=== PATIENT | male | born 1955 | race African-American/Black ===

== ENCOUNTER 2016-07-23 18:05 | Inpatient (IN) | payer MEDICAID ==
[~2016-07-23] VITALS: Ht 177.8 cm; Wt 125.7 kg
[2016-07-23] MEDS ORDERED: LOSARTAN POTASS50 MG ORAL (18:47)
[2016-07-23 18:52] VITALS: BP 165/115
[2016-07-23 19:51] LABS: CALCIUM 8.6 mg/dL (8.6-10.2); CREATININE 1.7 mg/dL (0.7-1.2); GLOMERULAR FILTRATION RATE 49.9 mL/min (>60); POTASSIUM 5.1 mEQ/L (3.4-4.9); TOTAL PROTEIN 6.8 g/dL (6.6-8.7); TROPONIN I < 0.30 ng/mL (<=0.30)
--- NOTE | 2016-07-23 20:14 | Emergency Room Report ---
History of Present Illness General Chief Complaint: Hypertension Source: Patient Present Illness HPI 60-year-old male presents to ED for evaluation. Patient states that for one week he's been feeling short of breath, with increased leg swelling. Patient states that he has history of high blood pressure. Used to take a water pill but has not taken in several months because he ran out. Shortness of breath is intermittent sometimes at rest sometimes when walking. Denies shortness of breath at this time. Denies any chest pain. Notes cough which is dry. Denies any fevers or chills. No aggravating relieving factors. Denies any other associated symptoms Allergies: Coded Allergies: No Known Allergies (Unverified , 07/23/16) Patient History Past Medical History: HTN Past Surgical History: none Pertinent Family History: none Social History: Denies: alcohol use, drug use, smoking Immunizations: UTD Reviewed Nursing Documentation: PMH: Agreed, PSxH: Agreed Nursing Documentation-PMH Hx Hypertension: Yes Review of Systems All Other Systems: negative except mentioned in HPI Physical Exam Vital Signs Date Time Temp Pulse Resp B/P Pulse Ox O2 Delivery O2 Flow Rate FiO2 07/23/16 18:42 98.2 100 22 165/115 86 Room Air Sp02 EP Interpretation: reviewed, normal General Appearance: no apparent distress, alert, GCS 15, non-toxic Head: normocephalic, atraumatic Eyes: bilateral eye PERRL, bilateral eye normal inspection ENT: hearing grossly normal, normal pharynx, no angioedema, normal voice Neck: full range of motion, supple/symm/no masses Respiratory: chest non-tender, lungs clear, normal breath sounds, speaking full sentences Cardiovascular #1: regular rate, rhythm, no edema Cardiovascular #2: 2+ carotid (R), 2+ carotid (L), 2+ radial (R), 2+ radial (L) , 2+ dorsalis pedis (R), 2+ dorsalis pedis (L) Gastrointestinal: normal bowel sounds, non tender, soft, non-distended, no guarding, no rebound Rectal: deferred Genitourinary: normal inspection, no CVA tenderness Musculoskeletal: back normal, gait/station normal, normal range of motion, non- tender, swelling - 2+ pitting edema b/l LE Neurologic: alert, oriented x3, responsive, motor strength/tone normal, sensory intact, speech normal Psychiatric: judgement/insight normal, memory normal, mood/affect normal, no suicidal/homicidal ideation Reflexes: 3+ bicep (R), 3+ bicep (L), 3+ tricep (R), 3+ tricep (L), 3+ knee (R) , 3+ knee (L) Skin: normal color, no rash, warm/dry, well hydrated Lymphatic: no adenopathy Medical Decision Making Diagnostic Impression: Primary Impression: Hypertensive urgency Additional Impressions: CHF exacerbation Qualified Codes: I50.9 - Heart failure, unspecified ARF (acute renal failure) Qualified Codes: N17.9 - Acute kidney failure, unspecified Hyperkalemia ER Course Hospital Course 60-year-old male presents ED complaining of shortness of breath, leg swelling, BP high Differential diagnoses include: AK/unstable angina, contusion, muscle strain, PTX, rib fracture Clinical course Patient placed on stretcher. on therapist occupational. After initial history and physical I orderd labs, EKG, chest x-ray, ASA labs reviewed- no leukocytosis, hemoglobin/hematocrit stable, creatinine 1.7, K 5.1, troponins negative, BNP greater than 4000 Chest x-ray- cardiomegaly EKG - NSR, no acute changes Hydralazine given. Lasix given. On reassessment BP is improved Case discussed with Dr. Uribe and he agreed to accept the patient to his service for further care and support I. I feel this is a highly complex case requiring extensive working including EKG/Rhythm strip, Xray/CT/US, Blood/urine lab work, repeat exams while in ED, and administration of strong opiates/narcotics for pain control, admission to hospital or close patient follow up. Diagnosis - hypertensive urgency, CHF exacerbation, acute renal failuere, hyperkalemia admitted to telemetry in serious condition Labs Test 07/23/16 19:25 White Blood Count 7.7 K/UL (4.8-10.8) Red Blood Count 6.75 M/UL (4.70-6.10) Hemoglobin 16.7 G/DL (14.2-18.0) Hematocrit 54.5 % (42.0-52.0) Mean Corpuscular Volume 81 FL (80-99) Mean Corpuscular Hemoglobin 24.7 PG (27.0-31.0) Mean Corpuscular Hemoglobin Concent 30.7 G/DL (32.0-36.0) Red Cell Distribution Width 17.7 % (11.6-14.8) Platelet Count 259 K/UL (150-450) Mean Platelet Volume 6.6 FL (6.5-10.1) Neutrophils (%) (Auto) 69.4 % (45.0-75.0) Lymphocytes (%) (Auto) 14.0 % (20.0-45.0) Monocytes (%) (Auto) 14.2 % (1.0-10.0) Eosinophils (%) (Auto) 0.7 % (0.0-3.0) Basophils (%) (Auto) 1.8 % (0.0-2.0) Sodium Level 139 mEQ/L (135-145) Potassium Level 5.1 mEQ/L (3.4-4.9) Chloride Level 97 mEQ/L (98-107) Carbon Dioxide Level 31 mEQ/L (20-30) Anion Gap 11 (5-15) Blood Urea Nitrogen 31 mg/dL (7-23) Creatinine 1.7 mg/dL (0.7-1.2) Estimat Glomerular Filtration Rate 49.9 mL/min (>60) Glucose Level 96 mg/dL (74-106) Calcium Level 8.6 mg/dL (8.6-10.2) Total Bilirubin 0.8 mg/dL (0.0-1.2) Aspartate Amino Transf (AST/SGOT) 35 U/L (5-40) Alanine Aminotransferase (ALT/SGPT) 41 U/L (3-41) Alkaline Phosphatase 99 U/L (40-129) Total Creatine Kinase 140 U/L (38-174) Creatine Kinase MB 4.0 ng/mL (< 6.7) Creatine Kinase MB Relative Index 2.8 Troponin I < 0.30 ng/mL (<=0.30) Pro-B-Type Natriuretic Peptide 4361 pg/mL (0-125) Total Protein 6.8 g/dL (6.6-8.7) Albumin 3.4 g/dL (3.5-5.2) Globulin 3.4 g/dL Albumin/Globulin Ratio 1.0 (1.0-2.7) EKG Diagnostic Results Rate: normal Rhythm: NSR ST Segments: no acute changes ASA given to the pt in ED: No Rhythm Strip Diag. Results EP Interpretation: yes Rhythm: NSR, no PVC's, no ectopy Chest X-Ray Diagnostic Results EP Interpretation: Yes Findings: no consolidation, no effusion, no pneumothorax, no acute cardiopulmonary disease, other - cardiomegaly Number of Views: 1 Last Vital Signs Date Time Temp Pulse Resp B/P Pulse Ox O2 Delivery O2 Flow Rate FiO2 07/23/16 18:52 100 22 Room Air 07/23/16 18:52 98.2 165/115 86 Status: improved Disposition: ADMITTED INPATIENT Condition: Serious Referrals: [facility],REFERR[facility] (PCP) ALE CONNELLY M.D. Jul 23, 2016 20:14
[2016-07-23 20:34] LABS: BASOPHILS % (AUTO) 1.8 % (0.0-2.0); EOSINOPHILS % (AUTO) 0.7 % (0.0-3.0); MEAN CORPUSCULAR HEMOGLOBIN 24.7 PG (27.0-31.0); MEAN CORPUSCULAR HGB CONC 30.7 G/DL (32.0-36.0); MEAN CORPUSCULAR VOLUME 81 FL (80-99); MEAN PLATELET VOLUME 6.6 FL (6.5-10.1); MONOCYTES % (AUTO) 14.2 % (1.0-10.0); NEUTROPHILS % (AUTO) 69.4 % (45.0-75.0); PLATELET COUNT 259 K/UL (150-450); RED BLOOD COUNT 6.75 M/UL (4.70-6.10); RED CELL DISTRIBUTION WIDTH 17.7 % (11.6-14.8); WHITE BLOOD COUNT 7.7 K/UL (4.8-10.8)
[2016-07-23 21:04] VITALS: BP 156/113
[2016-07-23] MEDS ORDERED: Miralax 17gm pkt ORAL PRN (22:00)
[2016-07-23] MEDS ORDERED: DuoNeb 0.5-3(2.5)mg/3ml neb HHN PRN (22:00)
[2016-07-23 23:06] VITALS: BP 127/72
[2016-07-24] VITALS (7 sets, daily range): BP systolic 143–157; BP diastolic 72–108
[2016-07-24 01:28] LABS: APPEARANCE,URINE CLEAR; KETONES,URINE NEGATIVE (NEGATIVE); LEUKOCYTE ESTERASE ,URINE NEGATIVE (NEGATIVE); NITRITE,URINE NEGATIVE (NEGATIVE); PH,URINE 6 (4.5-8.0); PROTEIN,URINE NEGATIVE (NEGATIVE); UROBILINOGEN,URINE NORMAL MG/DL (0.0-1.0)
[2016-07-24 02:32] LABS: RBC,URINE 0-2 /HPF (0 - 0); SQUAMOUS EPITHELIAL CELL,UR OCCASIONAL /LPF (NONE/OCC); WBC,URINE 0-2 /HPF (0 - 0)
[2016-07-24 07:14] LABS: BASOPHILS % (AUTO) 0.8 % (0.0-2.0); EOSINOPHILS % (AUTO) 0.6 % (0.0-3.0); MEAN CORPUSCULAR HEMOGLOBIN 23.6 PG (27.0-31.0); MEAN CORPUSCULAR HGB CONC 29.6 G/DL (32.0-36.0); MEAN CORPUSCULAR VOLUME 80 FL (80-99); MEAN PLATELET VOLUME 7.2 FL (6.5-10.1); MONOCYTES % (AUTO) 13.2 % (1.0-10.0); NEUTROPHILS % (AUTO) 73.3 % (45.0-75.0); PLATELET COUNT 262 K/UL (150-450); RED BLOOD COUNT 6.66 M/UL (4.70-6.10); RED CELL DISTRIBUTION WIDTH 17.9 % (11.6-14.8); WHITE BLOOD COUNT 9.6 K/UL (4.8-10.8)
[2016-07-24 07:44] LABS: TROPONIN I < 0.30 ng/mL (<=0.30)
[2016-07-24 07:49] LABS: CALCIUM 8.5 mg/dL (8.6-10.2); CREATININE 1.7 mg/dL (0.7-1.2); GLOMERULAR FILTRATION RATE 49.9 mL/min (>60); PHOSPHORUS 5.8 mg/dL (2.5-4.8); POTASSIUM 4.5 mEQ/L (3.4-4.9)
[2016-07-24 07:58] LABS: ALANINE AMINOTRANSFERASE 43 U/L (3-41); ALBUMIN/GLOBULIN RATIO 0.9 (1.0-2.7); ANION GAP 18 (5-15); ASPARTATE AMINO TRANSFERASE 38 U/L (5-40); CALCIUM 8.3 mg/dL (8.6-10.2); CARBON DIOXIDE 28 mEQ/L (20-30); CHLORIDE 95 mEQ/L (98-107); CREATININE 1.7 mg/dL (0.7-1.2); GLOMERULAR FILTRATION RATE 49.9 mL/min (>60); HEMOLYSIS 36; MAGNESIUM 2.2 mg/dL (1.7-2.5); PHOSPHORUS 5.4 mg/dL (2.5-4.8); SODIUM 141 mEQ/L (135-145); TOTAL PROTEIN 6.6 g/dL (6.6-8.7); URIC ACID 8.1 mg/dL (3.0-7.5)
[2016-07-24] MEDS: Losartan 50mg tab ORAL SCH (08:57)
[2016-07-24] MEDS: Heparin 5000 units/ml inj SUBQ SCH ×2 (08:58→21:37)
--- NOTE | 2016-07-24 10:47 | Diagnostic Imaging Report ---
Indication: SOB Technique: One view of the chest Comparison: none Findings: Body habitus limits evaluation. The heart is markedly enlarged. The lungs and pleural spaces are grossly clear. Impression: Limited exam. Cardiomegaly No definite acute process This agrees with the preliminary interpretation provided by the emergency room physician
--- NOTE | 2016-07-24 15:13 | History and Physical ---
History of Present Illness General Date patient seen: Jul 24, 2016 Reason for Hospitalization: Hypertension Present Illness HPI 60-year-old male with hx of CHF, HTN, non-compliant with his meds presented to ED for evaluation of shortness of breath, with increased leg swelling. He used to take a water pill but has not taken in several months because he ran out. Denies any fevers or chills. Pt's cxr showed cardiomegaly and pulmonary edema. Pt is admitted to telemetry for further work up. Allergies: Coded Allergies: No Known Allergies (Unverified , 07/23/16) Medication History Scheduled Losartan Potassium* (Losartan Potassium*), 100 MG ORAL DAILY, (Reported) Patient History Healthcare decision maker pt alert and oriented Resuscitation status Full Code Advanced Directive on File Past Medical/Surgical History Past Medical/Surgical History: (1) CHF (congestive heart failure) (2) HTN (hypertension) Review of Systems All Other Systems: negative except mentioned in HPI Physical Exam General Appearance: WD/WN, no apparent distress Lines, tubes and drains: peripheral HEENT: normocephalic, atraumatic Neck: non-tender, normal alignment Respiratory/Chest: chest wall non-tender, lungs clear Breasts: no masses Cardiovascular/Chest: normal peripheral pulses Abdomen: normal bowel sounds, non tender Genitourinary/Rectal: normal genital exam, normal rectal exam Extremities: normal range of motion Skin Exam: normal pigmentation Last 24 Hour Vital Signs Date Time Temp Pulse Resp B/P Pulse Ox O2 Delivery O2 Flow Rate FiO2 07/24/16 12:00 100 07/24/16 12:00 96.3 98 20 148/94 95 Nasal Cannula 2.0 07/24/16 08:57 156/85 07/24/16 08:00 97.7 92 20 156/85 97 Nasal Cannula 2.0 07/24/16 08:00 103 07/24/16 04:09 98.8 103 20 148/72 97 Nasal Cannula 2.0 07/24/16 04:00 95 07/24/16 00:28 98.3 109 21 143/88 95 Room Air 07/24/16 00:00 103 07/23/16 23:16 98.2 87 25 127/72 93 Nasal Cannula 2.0 07/23/16 23:06 98.2 87 25 127/72 93 Nasal Cannula 2.0 07/23/16 21:04 98.2 100 25 156/113 93 Nasal Cannula 2.0 07/23/16 20:49 165/115 07/23/16 18:52 100 22 Room Air 07/23/16 18:52 98.2 78 22 165/115 86 Room Air 07/23/16 18:42 98.2 100 22 165/115 86 Room Air Intake and Output 07/23/16 07/24/16 19:00 07:00 Intake Total 240 ml Output Total 800 ml Balance -560 ml Intake Oral 240 ml Output Urine Total 800 ml # Voids 1 Laboratory Tests Test 07/23/16 19:25 07/24/16 00:55 07/24/16 04:30 White Blood Count 7.7 K/UL (4.8-10.8) 9.6 K/UL (4.8-10.8) Red Blood Count 6.75 M/UL (4.70-6.10) H 6.66 M/UL (4.70-6.10) H Hemoglobin 16.7 G/DL (14.2-18.0) 15.7 G/DL (14.2-18.0) Hematocrit 54.5 % (42.0-52.0) H 53.1 % (42.0-52.0) H Mean Corpuscular Volume 81 FL (80-99) 80 FL (80-99) Mean Corpuscular Hemoglobin 24.7 PG (27.0-31.0) L 23.6 PG (27.0-31.0) L Mean Corpuscular Hemoglobin Concent 30.7 G/DL (32.0-36.0) L 29.6 G/DL (32.0-36.0) L Red Cell Distribution Width 17.7 % (11.6-14.8) H 17.9 % (11.6-14.8) H Platelet Count 259 K/UL (150-450) 262 K/UL (150-450) Mean Platelet Volume 6.6 FL (6.5-10.1) 7.2 FL (6.5-10.1) Neutrophils (%) (Auto) 69.4 % (45.0-75.0) 73.3 % (45.0-75.0) Lymphocytes (%) (Auto) 14.0 % (20.0-45.0) L 12.0 % (20.0-45.0) L Monocytes (%) (Auto) 14.2 % (1.0-10.0) H 13.2 % (1.0-10.0) H Eosinophils (%) (Auto) 0.7 % (0.0-3.0) 0.6 % (0.0-3.0) Basophils (%) (Auto) 1.8 % (0.0-2.0) 0.8 % (0.0-2.0) Sodium Level 139 mEQ/L (135-145) 142 mEQ/L (135-145) Potassium Level 5.1 mEQ/L (3.4-4.9) H 4.5 mEQ/L (3.4-4.9) Chloride Level 97 mEQ/L (98-107) L 96 mEQ/L (98-107) L Carbon Dioxide Level 31 mEQ/L (20-30) H 34 mEQ/L (20-30) H Anion Gap 11 (5-15) 12 (5-15) Blood Urea Nitrogen 31 mg/dL (7-23) H 31 mg/dL (7-23) H Creatinine 1.7 mg/dL (0.7-1.2) H 1.7 mg/dL (0.7-1.2) H Estimat Glomerular Filtration Rate 49.9 mL/min (>60) 49.9 mL/min (>60) Glucose Level 96 mg/dL (74-106) 98 mg/dL (74-106) Calcium Level 8.6 mg/dL (8.6-10.2) 8.5 mg/dL (8.6-10.2) L Total Bilirubin 0.8 mg/dL (0.0-1.2) 0.6 mg/dL (0.0-1.2) Aspartate Amino Transf (AST/SGOT) 35 U/L (5-40) 38 U/L (5-40) Alanine Aminotransferase (ALT/SGPT) 41 U/L (3-41) 43 U/L (3-41) H Alkaline Phosphatase 99 U/L (40-129) 92 U/L (40-129) Total Creatine Kinase 140 U/L (38-174) 119 U/L (38-174) Creatine Kinase MB 4.0 ng/mL (< 6.7) Creatine Kinase MB Relative Index 2.8 Troponin I < 0.30 ng/mL (<=0.30) < 0.30 ng/mL (<=0.30) Pro-B-Type Natriuretic Peptide 4361 pg/mL (0-125) H Total Protein 6.8 g/dL (6.6-8.7) 6.6 g/dL (6.6-8.7) Albumin 3.4 g/dL (3.5-5.2) L 3.4 g/dL (3.5-5.2) L Globulin 3.4 g/dL 3.4 g/dL Albumin/Globulin Ratio 1.0 (1.0-2.7) 0.9 (1.0-2.7) L Urine Color Pale yellow Urine Appearance Clear Urine pH 6 (4.5-8.0) Urine Specific Bertrand 1.005 (1.005-1.035) Urine Protein Negative (NEGATIVE) Urine Glucose (UA) Negative (NEGATIVE) Urine Ketones Negative (NEGATIVE) Urine Occult Blood Negative (NEGATIVE) Urine Nitrite Negative (NEGATIVE) Urine Bilirubin Negative (NEGATIVE) Urine Urobilinogen Normal MG/DL (0.0-1.0) Urine Leukocyte Esterase Negative (NEGATIVE) Urine RBC 0-2 /HPF (0 - 0) H Urine WBC 0-2 /HPF (0 - 0) Urine Squamous Epithelial Cells Occasional /LPF Urine Bacteria None /HPF (NONE) Urine Eosinophils None seen Urine Osmolality Pending Urine Random Sodium 112 mmol/L Urine Random Chloride 107 mmol/L Urine Potassium Timed 12 mmol/L Plasma/Serum Osmolality Pending Uric Acid 8.1 mg/dL (3.0-7.5) H Phosphorus Level 5.8 mg/dL (2.5-4.8) H Magnesium Level 2.2 mg/dL (1.7-2.5) Thyroid Stimulating Hormone (TSH) 2.660 uIU/mL (0.300-4.500) Free Thyroxine 1.27 ng/dL (0.86-1.85) Cortisol Pending Height (Feet): 5 Height (Inches): 10.00 Weight (Pounds): 294 Medications Current Medications Medications (Trade) Dose Ordered Sig/Judy Route PRN Reason Start Time Stop Time Status Last Admin Dose Admin Acetaminophen (Tylenol) 650 mg Q4H PRN ORAL Fever 07/23/16 22:00 08/22/16 21:59 Albuterol/ Ipratropium (DuoNeb 0.5-3(2.5)mg/3ml) 3 ml Q4HRT PRN HHN Shortness of Breath 07/23/16 22:00 07/28/16 21:59 Dextrose (Dextrose 50%) STAT PRN IV Hypoglycemia 07/23/16 22:00 08/22/16 21:59 Furosemide (Lasix) 40 mg EVERY 8 HOURS IV 07/23/16 22:00 08/22/16 21:59 07/24/16 13:53 Heparin Sodium (Porcine) (Heparin 5000 units/ml) 5,000 units EVERY 12 HOURS SUBQ 07/24/16 09:00 08/23/16 08:59 07/24/16 08:58 Losartan Potassium (Cozaar) 100 mg DAILY ORAL 07/24/16 09:00 08/23/16 08:59 07/24/16 08:57 Ondansetron HCl (Zofran) 4 mg Q6H PRN IVP Nausea & Vomiting 07/23/16 22:00 08/22/16 21:59 Polyethylene Glycol (Miralax) 17 gm DAILYPRN PRN ORAL Constipation 07/23/16 22:00 08/22/16 21:59 Temazepam (Restoril) 15 mg HSPRN PRN ORAL Insomnia 07/23/16 22:00 07/30/16 21:59 Assessment/Plan Problem List: (1) CHF exacerbation ICD Codes: I50.9 - Heart failure, unspecified SNOMED: 19048031 Qualifiers: Qualified Codes: I50.9 - Heart failure, unspecified (2) Hypertensive urgency ICD Codes: I16.0 - Hypertensive urgency SNOMED: 065519966 (3) CHF (congestive heart failure) ICD Codes: I50.9 - Heart failure, unspecified SNOMED: 65579267 (4) HTN (hypertension) ICD Codes: I10 - Essential (primary) hypertension SNOMED: 11795308 (5) ARF (acute renal failure) ICD Codes: N17.9 - Acute kidney failure, unspecified SNOMED: 91774755 Qualifiers: Qualified Codes: N17.9 - Acute kidney failure, unspecified Assessment/Plan diruetics bp control renal work up KEITH CHONG Jul 24, 2016 15:13
[2016-07-24] MEDS: Docusate 100mg tablet ORAL SCH (17:32)
[2016-07-24] MEDS: Lactulose 20gm/30ml UDC ORAL SCH (17:32)
[2016-07-24] MEDS: Gentamicin 0.3% Opth Soln 5ml BOTH EYES SCH ×2 (17:32→23:27)
--- NOTE | 2016-07-24 19:43 | Cardiology Report ---
APPROVED REPORT EXAM: Two-dimensional and M-mode echocardiogram with Doppler and color Doppler. INDICATION Left Ventricular Function M-Mode DIMENSIONS IVSd2.0 (0.7-1.1cm)Left Atrium (MM)4.9 (1.6-4.0cm) LVDd5.8 (3.5-5.6cm)Aortic Root3.5 (2.0-3.7cm) PWd1.5 (0.7-1.1cm)Aortic Cusp Exc.2.2 (1.5-2.0cm) LVDs4.8 (2.5-4.0cm) PWs1.8 cm Technically difficult study due to poor acoustic windows. Study quality precludes accurate assessment of regional wall motion. Mild left ventricular enlargement. Global left ventricular hypokinesis. Left ventricular ejection fraction estimated to be 35-40 %. Moderate left ventricular hypertrophy. No evidence of pericardial fat or effusion. Moderate right atrial and right ventricular enlargement. Left ventricle D-shape pattern, suggestive of right ventricle volume and pressure overload. Left atrial chamber size is within normal limits. Mild focal aortic valve sclerosis with adequate cusp excursion. Mildly thickened mitral valve leaflets with normal excursion. Mild mitral annulus and aortic root calcification. Normal pulmonic valve structure. Normal tricuspid valve structure. IVC dilated at 1.8 cm with physiologic collapse. A color flow and spectral Doppler study was performed and revealed: No aortic regurgitation. Moderate to severe mitral regurgitation. Mitral diastolic velocities suggest reduced left ventricular relaxation (Grade I). Mild tricuspid regurgitation. Tricuspid systolic velocities suggests peak right ventricular systolic pressure of 60 mmHg, consistent with severe pulmonary hypertension. Trace pulmonic regurgitation present.
[2016-07-24] MEDS: Miralax 17gm pkt ORAL SCH (21:00)
[2016-07-25] VITALS (7 sets, daily range): BP systolic 132–162; BP diastolic 91–103
[2016-07-25] MEDS: Gentamicin 0.3% Opth Soln 5ml BOTH EYES SCH ×3 (05:31→21:23)
[2016-07-25 06:10] LABS: CORTISOL LC 19.5 ug/dL (.)
[2016-07-25] MEDS ORDERED: cloNIDine 0.2mg Tab ORAL PRN (08:15)
[2016-07-25] MEDS: Losartan 50mg tab ORAL SCH (08:24)
[2016-07-25] MEDS: Lactulose 20gm/30ml UDC ORAL SCH ×3 (08:24→17:49)
[2016-07-25] MEDS: Docusate 100mg tablet ORAL SCH ×3 (08:24→17:50)
[2016-07-25] MEDS: Heparin 5000 units/ml inj SUBQ SCH ×2 (08:33→21:26)
--- NOTE | 2016-07-25 09:35 | Diagnostic Imaging Report ---
Indication: Abnormal renal function tests, hypertension Technique: Grayscale and duplex images of the kidneys, retroperitoneum, and bladder were obtained. Comparison:None Findings: Right kidney measures 13.9 cm in length. Left kidney measures 12.2 cm in length. Both kidneys demonstrate normal echogenicity. No hydronephrosis. No focal abnormality. Normal inferior vena cava. Bladder is normal. Impression: negative.
--- NOTE | 2016-07-25 14:57 | Pulmonology Progress Note ---
Assessment/Plan Problems: (1) CHF exacerbation (2) Hypertensive urgency (3) CHF (congestive heart failure) (4) HTN (hypertension) (5) ARF (acute renal failure) Assessment/Plan improving diuresing well cxr, bnp in am Subjective ROS Limited/Unobtainable: No Interval Events: comfortable Allergies: Coded Allergies: No Known Allergies (Unverified , 07/23/16) Objective Last 24 Hour Vital Signs Date Time Temp Pulse Resp B/P Pulse Ox O2 Delivery O2 Flow Rate FiO2 07/25/16 12:08 98.1 99 22 141/92 100 Nasal Cannula 4.0 07/25/16 12:00 98 07/25/16 08:24 153/91 07/25/16 08:06 98.2 106 22 153/91 92 Nasal Cannula 4.0 07/25/16 08:00 107 07/25/16 07:19 Nasal Cannula 4.0 07/25/16 07:19 94 Nasal Cannula 4.0 07/25/16 07:19 96 18 Room Air 4.0 07/25/16 06:05 162/100 97 2.0 07/25/16 04:00 101 07/25/16 04:00 97.0 104 20 160/103 96 Nasal Cannula 07/25/16 00:00 97.8 96 20 132/96 95 Room Air 07/25/16 00:00 95 07/24/16 20:00 100 07/24/16 20:00 97.3 97 20 157/108 96 Nasal Cannula 4.0 07/24/16 19:41 94 Nasal Cannula 4.0 07/24/16 19:41 Nasal Cannula 4.0 07/24/16 19:40 96 18 Room Air 4.0 07/24/16 16:00 97.9 92 20 156/85 97 Nasal Cannula 2.0 Intake and Output 07/24/16 07/25/16 19:00 07:00 Intake Total 480 ml 870 ml Output Total 4100 ml 3000 ml Balance -3620 ml -2130 ml Intake Oral 480 ml 870 ml Output Urine Total 4100 ml 3000 ml # Bowel Movements 1 General Appearance: WD/WN, no acute distress HEENT: normocephalic, atraumatic Respiratory/Chest: chest wall non-tender, normal breath sounds Cardiovascular: normal peripheral pulses, normal rate Abdomen: normal bowel sounds, soft, non tender Extremities: no cyanosis, no clubbing Skin: no lesions, no ulcers Laboratory Tests 07/25/16 06:00: Vitamin D 25-Hydroxy [Pending], 25-Hydroxy Vitamin D2 [Pending], 25-Hydroxy Vitamin D3 [Pending] Current Medications Medications (Trade) Dose Ordered Sig/Judy Route PRN Reason Start Time Stop Time Status Last Admin Dose Admin Acetaminophen (Tylenol) 650 mg Q4H PRN ORAL Fever 07/23/16 22:00 08/22/16 21:59 Albuterol/ Ipratropium (DuoNeb 0.5-3(2.5)mg/3ml) 3 ml Q4HRT PRN HHN Shortness of Breath 07/23/16 22:00 07/28/16 21:59 Clonidine HCl (Catapres) 0.2 mg EVERY 6 HOURS PRN ORAL For High Blood Pressure 07/25/16 08:15 08/24/16 08:14 Dextrose (Dextrose 50%) STAT PRN IV Hypoglycemia 07/23/16 22:00 08/22/16 21:59 Docusate Sodium (Colace) 100 mg THREE TIMES A DAY ORAL 07/24/16 18:00 08/23/16 17:59 07/25/16 08:24 Furosemide (Lasix) 40 mg EVERY 8 HOURS IV 07/23/16 22:00 08/22/16 21:59 07/25/16 13:14 Gentamicin Sulfate (Garamycin 0.3% Opt Sol) 1 drop Q8HR BOTH EYES 07/24/16 18:00 07/31/16 17:59 07/25/16 13:14 Heparin Sodium (Porcine) (Heparin 5000 units/ml) 5,000 units EVERY 12 HOURS SUBQ 07/24/16 09:00 08/23/16 08:59 07/25/16 08:33 Lactulose (Cephulac) 30 gm THREE TIMES A DAY ORAL 07/24/16 18:00 08/23/16 17:59 07/25/16 08:24 Losartan Potassium (Cozaar) 100 mg DAILY ORAL 07/24/16 09:00 08/23/16 08:59 07/25/16 08:24 Mineral Oil (Fleet's Mineral Oil Enema) 133 ml EVERY OTHER DAY RECTAL 07/26/16 09:00 08/25/16 08:59 Ondansetron HCl (Zofran) 4 mg Q6H PRN IVP Nausea & Vomiting 07/23/16 22:00 08/22/16 21:59 Polyethylene Glycol (Miralax) 17 gm BEDTIME ORAL 07/24/16 21:00 08/23/16 20:59 Polyethylene Glycol (Miralax) 17 gm DAILYPRN PRN ORAL Constipation 07/23/16 22:00 08/22/16 21:59 Sennosides (Senokot) 8.6 mg DAILY ORAL 07/24/16 16:30 08/23/16 16:29 07/25/16 08:24 Temazepam (Restoril) 15 mg HSPRN PRN ORAL Insomnia 07/23/16 22:00 07/30/16 21:59 KEITH CHONG Jul 25, 2016 14:57
--- NOTE | 2016-07-25 18:35 | Cardiology Progress Note ---
Assessment/Plan Assessment/Plan [id number] left heart failure righ heart failur pulm htn edy renal insuf obesity med noncomplaince full note dicated need mroe diuresis needs acei if cr adn k allow will need coreg diet and fluid restriction and fu with cardiologsit fully d/w pt Objective Last 24 Hour Vital Signs Date Time Temp Pulse Resp B/P Pulse Ox O2 Delivery O2 Flow Rate FiO2 07/25/16 16:00 94 07/25/16 16:00 97.0 96 20 150/94 93 Nasal Cannula 2.0 07/25/16 12:08 98.1 99 22 141/92 100 Nasal Cannula 4.0 07/25/16 12:00 98 07/25/16 08:24 153/91 07/25/16 08:06 98.2 106 22 153/91 92 Nasal Cannula 4.0 07/25/16 08:00 107 07/25/16 07:19 Nasal Cannula 4.0 07/25/16 07:19 94 Nasal Cannula 4.0 07/25/16 07:19 96 18 Room Air 4.0 07/25/16 06:05 162/100 97 2.0 07/25/16 04:00 101 07/25/16 04:00 97.0 104 20 160/103 96 Nasal Cannula 07/25/16 00:00 97.8 96 20 132/96 95 Room Air 07/25/16 00:00 95 07/24/16 20:00 100 07/24/16 20:00 97.3 97 20 157/108 96 Nasal Cannula 4.0 07/24/16 19:41 94 Nasal Cannula 4.0 07/24/16 19:41 Nasal Cannula 4.0 07/24/16 19:40 96 18 Room Air 4.0 Intake and Output 07/24/16 07/25/16 19:00 07:00 Intake Total 480 ml 870 ml Output Total 4100 ml 3000 ml Balance -3620 ml -2130 ml Intake Oral 480 ml 870 ml Output Urine Total 4100 ml 3000 ml # Bowel Movements 1 Laboratory Tests Test 07/25/16 06:00 Vitamin D 25-Hydroxy Pending 25-Hydroxy Vitamin D2 Pending 25-Hydroxy Vitamin D3 Pending ABHISHEK BYRD Jul 25, 2016 18:35
[2016-07-25] MEDS: Miralax 17gm pkt ORAL SCH (20:44)
[2016-07-25 22:21] LABS: TROPONIN I < 0.30 ng/mL (<=0.30)
[2016-07-26 00:15] VITALS: BP 142/87
--- NOTE | 2016-07-26 03:39 | Consultation ---
DATE OF CONSULTATION: 07/25/2016 CARDIOLOGY CONSULTATION REFERRING PHYSICIAN: Hira Uribe M.D. REASON FOR REFERRAL: Cardiomyopathy and congestive heart failure. HISTORY OF PRESENT ILLNESS: The patient is a middle-aged gentleman who has had significant edema of lower extremities for some time. He has seen a assembler caterpillar spider previously and has been given some diuretics. He did take the diuretics and he responded to them, after a while he stopped taking over the last couple of months. Over the past two weeks, he has had increased degrees of swelling around the ankles and eventually the swelling crawled up all the way up to his legs. He has been short of breath. He has two pillows. He gets up because of shortness of breath. He has significant dyspnea on exertion. He has dizziness on long distance walking. No heart pounding or palpitations. No dizziness on standing. PAST MEDICAL HISTORY: Positive for high blood pressure. No heart attack. No cancer, stroke, hepatitis, tuberculosis, asthma, emphysema, ulcers, kidney problems, liver problems, thyroid problems, anemia, arthritis, or HIV. Positive for sleep apnea. ALLERGIES: He is not allergic to any medications. SOCIAL HISTORY: Denies smoking or drinking. He has a remote history of some drugs in , he states. REVIEW OF SYSTEMS: Gastrointestinal: Intermittent bouts of diarrhea. Genitourinary: Negative. Pulmonary: Negative. Constitutional: Negative. Neurological: Negative. PHYSICAL EXAMINATION: GENERAL: Shows to be obese elderly gentleman, in no apparent distress. VITAL SIGNS: His blood pressure is anywhere between 141/90 to 154/94, heart rate is in 90s, temperature 97 degrees, and 92% on two liters. NECK: Supple. No jugular venous distention. No abdominojugular reflux noted. LUNGS: Decreased breath sounds at the bases. CARDIAC: Regular rate and rhythm. No heaves, thrills, gallops, or rubs are noted. ABDOMEN: Soft and obese. Positive bowel sounds. Abdominal wall edema is noted. EXTREMITIES: There is 2 to 3+ edema of the lower extremities all way up to his thigh. LABORATORY DATA: White count 9.6, hemoglobin 15.7, and platelet count 262,000. Sodium is 140, potassium 4.5, chloride 96, bicarbonate 34, BUN 31, creatinine 1.7, glucose of 98, and calcium is 8.5. Troponin is less than 0.04. ProBNP at the time of admission was 4361. His TSH is . His cortisol is 19.1. Urinalysis is fairly unremarkable. Chest x-ray shows no acute processes or cardiomegaly. Echocardiogram shows cardiomyopathy, ejection fraction of 35% to 40%, global hypokinesis, diastolic flattening of ventricular septum, pulmonary systolic pressure is 60. Moderate to severe mitral regurgitation is being documented. ASSESSMENT: 1. Congestive heart failure, acute on chronic systolic. 2. Mitral regurgitation. 3. Pulmonary hypertension. 4. Sleep apnea. 5. Morbid obesity. 6. Systemic hypertension. 7. Medication noncompliance. 8. Right heart failure. PLAN: Importance of diet, fluid restriction, sodium restriction, and compliance with medication was fully discussed with the patient. He needs to be diuresed and needs to be on RAHEEM inhibitors as long as creatinine or potassium allow, beta-blockers once his heart failure improves and further recommendations based on the results of the response to therapy. He seems to have right now more symptoms of right heart failure than he does of left heart failure as well. Mark Oreilly M.D. DR: OLIVIA JOB#: [id number] CC:
[2016-07-26 04:24] VITALS: BP 147/98
[2016-07-26] MEDS: Gentamicin 0.3% Opth Soln 5ml BOTH EYES SCH ×3 (06:11→21:07)
[2016-07-26 06:44] LABS: CREATININE, RANDOM URINE 86.1 mg/dL
[2016-07-26 07:11] LABS: CREATININE 1.5 mg/dL (0.7-1.2); GLOMERULAR FILTRATION RATE 57.7 mL/min (>60); POTASSIUM 3.7 mEQ/L (3.4-4.9); TOTAL PROTEIN 6.4 g/dL (6.6-8.7)
[2016-07-26 07:21] LABS: BASOPHILS % (AUTO) 0.5 % (0.0-2.0); EOSINOPHILS % (AUTO) 1.5 % (0.0-3.0); LYMPHOCYTES % (AUTO) 12.1 % (20.0-45.0); MEAN CORPUSCULAR HEMOGLOBIN 23.7 PG (27.0-31.0); MEAN CORPUSCULAR HGB CONC 29.6 G/DL (32.0-36.0); MEAN CORPUSCULAR VOLUME 80 FL (80-99); MONOCYTES % (AUTO) 14.8 % (1.0-10.0); NEUTROPHILS % (AUTO) 71.1 % (45.0-75.0); PLATELET COUNT 222 K/UL (150-450); RED BLOOD COUNT 6.44 M/UL (4.70-6.10); RED CELL DISTRIBUTION WIDTH 17.6 % (11.6-14.8); WHITE BLOOD COUNT 8.1 K/UL (4.8-10.8)
[2016-07-26 08:00] VITALS: BP 104/51
[2016-07-26] MEDS: Lactulose 20gm/30ml UDC ORAL SCH ×3 (08:53→17:18)
[2016-07-26] MEDS: Lisinopril 20mg tab ORAL SCH (08:53)
[2016-07-26] MEDS: Docusate 100mg tablet ORAL SCH ×3 (08:53→17:18)
[2016-07-26] MEDS: Heparin 5000 units/ml inj SUBQ SCH ×2 (08:56→21:00)
[2016-07-26] MEDS ORDERED: Fleet's Mineral Oil Enema RECTAL SCH (09:00)
[2016-07-26 11:03] LABS: ABG ALLEN TEST POSITIVE; ABG BASE EXCESS 22.3; ABG PCO2 78.4 mmHg (35.0-45.0)
[2016-07-26 11:04] LABS: ABG ALLEN TEST POSITIVE; ABG PCO2 84.3 mmHg (35.0-45.0)
[2016-07-26 12:00] VITALS: BP 150/108
--- NOTE | 2016-07-26 12:04 | General Progress Note ---
Progress Note Progress Note patient seen and examined full note dictated SHERMAN GRANT Jul 26, 2016 12:04
--- NOTE | 2016-07-26 12:12 | Diagnostic Imaging Report ---
Indication: DYSPNEA Technique: One view of the chest Comparison: 3 26 x 17 Findings: The heart remains enlarged. No gross acute infiltrates or effusions. Findings are unchanged Impression: Unchanged, over 3 days, findings as above.
--- NOTE | 2016-07-26 12:44 | Pulmonology Progress Note ---
Assessment/Plan Problems: (1) CHF exacerbation (2) Hypertensive urgency (3) CHF (congestive heart failure) (4) HTN (hypertension) (5) ARF (acute renal failure) Assessment/Plan improving diuresing well add diamox IV to treat hypercapnea bnp in am Subjective ROS Limited/Unobtainable: No Interval Events: still diuresing a lot Allergies: Coded Allergies: No Known Allergies (Unverified , 07/23/16) Objective Last 24 Hour Vital Signs Date Time Temp Pulse Resp B/P Pulse Ox O2 Delivery O2 Flow Rate FiO2 07/26/16 08:55 82 104/51 07/26/16 08:53 104/51 07/26/16 08:00 94 07/26/16 08:00 97.7 82 18 104/51 91 Nasal Cannula 2.0 07/26/16 07:50 Nasal Cannula 2.0 07/26/16 07:49 86 18 Nasal Cannula 2.0 07/26/16 07:48 91 Nasal Cannula 2.0 07/26/16 04:24 98.4 92 20 147/98 94 Nasal Cannula 2.0 07/26/16 04:00 95 07/26/16 00:15 98.3 98 21 142/87 95 Nasal Cannula 07/26/16 00:00 94 07/25/16 23:35 93 Nasal Cannula 4.0 07/25/16 21:23 97 146/102 07/25/16 20:00 94 07/25/16 20:00 97.8 97 21 146/102 93 Nasal Cannula 2.0 07/25/16 19:05 Nasal Cannula 4.0 07/25/16 19:05 86 18 Room Air 4.0 07/25/16 16:00 94 07/25/16 16:00 97.0 96 20 150/94 93 Nasal Cannula 2.0 Intake and Output 07/25/16 07/26/16 18:59 06:59 Intake Total 600 ml 260 ml Output Total 1200 ml 1200 ml Balance -600 ml -940 ml Intake Oral 600 ml 260 ml Output Urine Total 1200 ml 1200 ml General Appearance: WD/WN HEENT: normocephalic, atraumatic Respiratory/Chest: chest wall non-tender, lungs clear Cardiovascular: normal peripheral pulses, normal rate Abdomen: normal bowel sounds, no organomegaly Genitourinary: normal external genitalia Extremities: no cyanosis Neurologic/Psychiatric: septic tank servicer II-XII grossly normal Lymphatic: no neck adenopathy Musculoskeletal: normal muscle bulk Laboratory Tests 07/25/16 21:39: Troponin I < 0.30 07/26/16 04:00: Urine Eosinophils None seen, Urine Random Creatinine [Pending], Urine Random Microalbumin [Pending], Urine Random Total Protein 30, Urine Random Sodium 126, Urine Creatinine 86.1, Urine Microalbumin/Creatinine Ratio [Pending] 07/26/16 04:30: White Blood Count 8.1, Red Blood Count 6.44H, Hemoglobin 15.3, Hematocrit 51.6, Mean Corpuscular Volume 80, Mean Corpuscular Hemoglobin 23.7L, Mean Corpuscular Hemoglobin Concent 29.6L, Red Cell Distribution Width 17.6H, Platelet Count 222 , Mean Platelet Volume 7.0, Neutrophils (%) (Auto) 71.1, Lymphocytes (%) (Auto) 12.1L, Monocytes (%) (Auto) 14.8H, Eosinophils (%) (Auto) 1.5, Basophils (%) ( Auto) 0.5, Sodium Level 141, Potassium Level 3.7, Chloride Level 88L, Carbon Dioxide Level 48*H, Anion Gap 5, Blood Urea Nitrogen 22, Creatinine 1.5H, Estimat Glomerular Filtration Rate 57.7, Glucose Level 83, Calcium Level 8.0L, Total Bilirubin 0.9, Aspartate Amino Transf (AST/SGOT) 31, Alanine Aminotransferase (ALT/SGPT) 35, Alkaline Phosphatase 75, Pro-B-Type Natriuretic Peptide 2722H, Total Protein 6.4L, Albumin 3.3L, Globulin 3.1, Albumin/Globulin Ratio 1.0 07/26/16 10:50: Arterial Blood pH 7.440, Arterial Blood Partial Pressure CO2 78.4*H, Arterial Blood Partial Pressure O2 42.3*L, Arterial Blood HCO3 52.2H, Arterial Blood Oxygen Saturation 77.3L, Arterial Blood Base Excess 22.3, [place] Test Positive 07/26/16 11:02: Arterial Blood pH 7.400, Arterial Blood Partial Pressure CO2 84.3*H, Arterial Blood Partial Pressure O2 62.6L, Arterial Blood HCO3 51.8H, Arterial Blood Oxygen Saturation 90.4L, Arterial Blood Base Excess 21.0, [place] Test Positive Current Medications Medications (Trade) Dose Ordered Sig/Judy Route PRN Reason Start Time Stop Time Status Last Admin Dose Admin Acetaminophen (Tylenol) 650 mg Q4H PRN ORAL Fever 07/23/16 22:00 08/22/16 21:59 Albuterol/ Ipratropium (DuoNeb 0.5-3(2.5)mg/3ml) 3 ml Q4HRT PRN HHN Shortness of Breath 07/23/16 22:00 07/28/16 21:59 Carvedilol (Coreg) 3.125 mg EVERY 12 HOURS ORAL 07/25/16 21:00 08/24/16 20:59 07/26/16 08:55 Clonidine HCl (Catapres) 0.2 mg EVERY 6 HOURS PRN ORAL For High Blood Pressure 07/25/16 08:15 08/24/16 08:14 Dextrose (Dextrose 50%) STAT PRN IV Hypoglycemia 07/23/16 22:00 08/22/16 21:59 Docusate Sodium (Colace) 100 mg THREE TIMES A DAY ORAL 07/24/16 18:00 08/23/16 17:59 07/25/16 08:24 Furosemide (Lasix) 40 mg EVERY 8 HOURS IV 07/23/16 22:00 08/22/16 21:59 07/26/16 06:11 Gentamicin Sulfate (Garamycin 0.3% [facility]) 1 drop Q8HR BOTH EYES 07/24/16 18:00 07/31/16 17:59 07/26/16 06:11 Heparin Sodium (Porcine) (Heparin 5000 units/ml) 5,000 units EVERY 12 HOURS SUBQ 07/24/16 09:00 08/23/16 08:59 07/26/16 08:56 Lactulose (Cephulac) 30 gm THREE TIMES A DAY ORAL 07/24/16 18:00 08/23/16 17:59 07/25/16 08:24 Lisinopril (Prinivil) 20 mg DAILY ORAL 07/26/16 09:00 08/25/16 08:59 Mineral Oil (Fleet's Mineral Oil Enema) 133 ml EVERY OTHER DAY RECTAL 07/26/16 09:00 08/25/16 08:59 Ondansetron HCl (Zofran) 4 mg Q6H PRN IVP Nausea & Vomiting 07/23/16 22:00 08/22/16 21:59 Polyethylene Glycol (Miralax) 17 gm BEDTIME ORAL 07/24/16 21:00 08/23/16 20:59 Polyethylene Glycol (Miralax) 17 gm DAILYPRN PRN ORAL Constipation 07/23/16 22:00 08/22/16 21:59 Sennosides (Senokot) 8.6 mg DAILY ORAL 07/24/16 16:30 08/23/16 16:29 07/25/16 08:24 Temazepam (Restoril) 15 mg HSPRN PRN ORAL Insomnia 07/23/16 22:00 07/30/16 21:59 KEITH CHONG Jul 26, 2016 12:44
[2016-07-26 16:00] VITALS: BP 130/91
--- NOTE | 2016-07-26 19:23 | Cardiology Progress Note ---
Assessment/Plan Assessment/Plan 1. Congestive heart failure, acute on chronic systolic. 2. Mitral regurgitation. 3. Pulmonary hypertension. 4. Sleep apnea. 5. Morbid obesity. 6. Systemic hypertension. 7. Medication noncompliance. 8. Right heart failure 9. hypercapnea agree with diamox on coreg will increaes the dose decreased diuretic to bid keep on acei if bp remain elevated tomorrow would increase acaei should have sleep study as outpt in futuere Subjective Cardiovascular: Denies: chest pain, lightheadedness, palpitations Respiratory: Reports: shortness of breath Gastrointestinal/Abdominal: Denies: abdominal pain Genitourinary: Denies: burning Objective Last 24 Hour Vital Signs Date Time Temp Pulse Resp B/P Pulse Ox O2 Delivery O2 Flow Rate FiO2 07/26/16 16:00 98.1 87 20 130/91 98 Nasal Cannula 2.0 07/26/16 16:00 88 07/26/16 12:00 97.7 88 18 150/108 93 Nasal Cannula 2.0 07/26/16 12:00 87 07/26/16 08:55 82 104/51 07/26/16 08:53 104/51 07/26/16 08:00 94 07/26/16 08:00 97.7 82 18 104/51 91 Nasal Cannula 2.0 07/26/16 07:50 Nasal Cannula 2.0 07/26/16 07:49 86 18 Nasal Cannula 2.0 07/26/16 07:48 91 Nasal Cannula 2.0 07/26/16 04:24 98.4 92 20 147/98 94 Nasal Cannula 2.0 07/26/16 04:00 95 07/26/16 00:15 98.3 98 21 142/87 95 Nasal Cannula 07/26/16 00:00 94 07/25/16 23:35 93 Nasal Cannula 4.0 07/25/16 21:23 97 146/102 07/25/16 20:00 94 07/25/16 20:00 97.8 97 21 146/102 93 Nasal Cannula 2.0 General Appearance: no apparent distress Neck: supple Cardiovascular: normal rate, regular rhythm Respiratory/Chest: lungs clear, normal breath sounds Abdomen: normal bowel sounds, non tender, soft Extremities: moderate edema Intake and Output 07/25/16 07/26/16 19:00 07:00 Intake Total 600 ml 260 ml Output Total 1200 ml 1200 ml Balance -600 ml -940 ml Intake Oral 600 ml 260 ml Output Urine Total 1200 ml 1200 ml Laboratory Tests Test 07/25/16 21:39 07/26/16 04:00 07/26/16 04:30 07/26/16 10:50 Troponin I < 0.30 ng/mL (<=0.30) Urine Eosinophils None seen Urine Random Creatinine Pending Urine Random Microalbumin Pending Urine Random Total Protein 30 mg/dL Urine Random Sodium 126 mmol/L Urine Creatinine 86.1 mg/dL Urine Microalbumin/Creatinine Ratio Pending White Blood Count 8.1 K/UL (4.8-10.8) Red Blood Count 6.44 M/UL (4.70-6.10) H Hemoglobin 15.3 G/DL (14.2-18.0) Hematocrit 51.6 % (42.0-52.0) Mean Corpuscular Volume 80 FL (80-99) Mean Corpuscular Hemoglobin 23.7 PG (27.0-31.0) L Mean Corpuscular Hemoglobin Concent 29.6 G/DL (32.0-36.0) L Red Cell Distribution Width 17.6 % (11.6-14.8) H Platelet Count 222 K/UL (150-450) Mean Platelet Volume 7.0 FL (6.5-10.1) Neutrophils (%) (Auto) 71.1 % (45.0-75.0) Lymphocytes (%) (Auto) 12.1 % (20.0-45.0) L Monocytes (%) (Auto) 14.8 % (1.0-10.0) H Eosinophils (%) (Auto) 1.5 % (0.0-3.0) Basophils (%) (Auto) 0.5 % (0.0-2.0) Sodium Level 141 mEQ/L (135-145) Potassium Level 3.7 mEQ/L (3.4-4.9) Chloride Level 88 mEQ/L (98-107) L Carbon Dioxide Level 48 mEQ/L (20-30) *H Anion Gap 5 (5-15) Blood Urea Nitrogen 22 mg/dL (7-23) Creatinine 1.5 mg/dL (0.7-1.2) H Estimat Glomerular Filtration Rate 57.7 mL/min (>60) Glucose Level 83 mg/dL (74-106) Calcium Level 8.0 mg/dL (8.6-10.2) L Total Bilirubin 0.9 mg/dL (0.0-1.2) Aspartate Amino Transf (AST/SGOT) 31 U/L (5-40) Alanine Aminotransferase (ALT/SGPT) 35 U/L (3-41) Alkaline Phosphatase 75 U/L (40-129) Pro-B-Type Natriuretic Peptide 2722 pg/mL (0-125) H Total Protein 6.4 g/dL (6.6-8.7) L Albumin 3.3 g/dL (3.5-5.2) L Globulin 3.1 g/dL Albumin/Globulin Ratio 1.0 (1.0-2.7) Arterial Blood pH 7.440 (7.350-7.450) Arterial Blood Partial Pressure CO2 78.4 mmHg (35.0-45.0) *H Arterial Blood Partial Pressure O2 42.3 mmHg (75.0-100.0) Arterial Blood HCO3 52.2 mmol/L (22.0-26.0) H Arterial Blood Oxygen Saturation 77.3 % (92.0-98.0) L Arterial Blood Base Excess 22.3 [place] Test Positive Test 07/26/16 11:02 Arterial Blood pH 7.400 (7.350-7.450) Arterial Blood Partial Pressure CO2 84.3 mmHg (35.0-45.0) *H Arterial Blood Partial Pressure O2 62.6 mmHg (75.0-100.0) L Arterial Blood HCO3 51.8 mmol/L (22.0-26.0) H Arterial Blood Oxygen Saturation 90.4 % (92.0-98.0) L Arterial Blood Base Excess 21.0 [place] Test Positive ABHISHEK BYRD Jul 26, 2016 19:23
[2016-07-26 20:00] VITALS: BP 150/97
--- NOTE | 2016-07-26 20:09 | Consultation ---
DATE OF CONSULTATION: 07/26/2016 NEPHROLOGY CONSULTATION REFERRING PHYSICIAN: Hira Uribe M.D. REASON FOR CONSULTATION: Acute renal failure and fluid overload. HISTORY OF PRESENT ILLNESS: The patient is a pleasant 60-year-old male with past medical history significant for history of morbid obesity, hypertension, and history of CHF who presented to the emergency room for evaluation of progressive shortness of breath, orthopnea and leg swelling. Apparently, the patient was given diuretic by the primary physician. The patient ran out of medication and was not taking any medications. So, developed acute CHF, came to the emergency room and found to have an acute renal failure. I was called for management of renal disease and electrolyte imbalance. PAST MEDICAL HISTORY: Hypertension, morbid obesity, and dyslipidemia. ALLERGIES: No known drug allergies. SOCIAL HISTORY: Denies any chronic tobacco, alcohol, or drug use. FAMILY HISTORY: Negative for any history of premature heart disease. REVIEW OF SYSTEMS: General: He complained of generalized weakness. Denied any fever, chills, or night sweats. Head And Neck: Denies any dysphagia, odynophagia, blurry vision, headache, or neck stiffness. Pulmonary: Mild shortness of breath. No cough. No sputum. Cardiovascular: Denies any chest or palpitation. Gastrointestinal: Denies any nausea, vomiting, diarrhea, hematemesis, or hematochezia. Genitourinary: Denies any dysuria, frequency, or hematuria. Musculoskeletal: He denies any weakness or numbness. PHYSICAL EXAMINATION: VITAL SIGNS: The patient has temperature of 97 degrees, blood pressure of 104/51, pulse rate of 91, and respiratory rate of 18. HEAD AND NECK: No JVP. No LAD. No thyromegaly. Extraocular movement intact. Pupils reactive to light and accommodation. LUNGS: Clear to auscultation. CARDIAC: Regular rate and rhythm. S1 and S2 no murmur. No rub. ABDOMEN: Soft, nontender, and nondistended. EXTREMITIES: Trace edema. No clubbing. No cyanosis. NEUROLOGIC: Cranial nerves II through XII within normal limits. Upper and lower extremities are grossly intact. LABORATORY AND DIAGNOSTIC DATA: On admission, patient had WBC count of 7, hemoglobin of 16, hematocrit of 54, and platelet count of 259,000. Chemistry reveals a sodium of 142, potassium of 4.5, chloride 96, bicarbonate 34, BUN of 31, and creatinine of 1.7. Calcium of 8.5. Phosphorus of 5.8. BNP was 2722. creatinine was 30. Urine sodium 112. Angi Peguero M.D. DR: EUNICE JOB#: [id number] CC:
[2016-07-26] MEDS: Miralax 17gm pkt ORAL SCH (21:00)
[2016-07-26] MEDS: Carvedilol 6.25mg Tab ORAL SCH (21:00)
[2016-07-26] MEDS: acetaZOLAMIDE 500mg Inj IVP SCH (21:00)
[2016-07-27 00:15] VITALS: BP 136/82
[2016-07-27 04:12] VITALS: BP 102/68
[2016-07-27] MEDS: Gentamicin 0.3% Opth Soln 5ml BOTH EYES SCH ×2 (06:17→12:10)
[2016-07-27 07:34] LABS: BASOPHILS % (AUTO) 0.8 % (0.0-2.0); EOSINOPHILS % (AUTO) 2.1 % (0.0-3.0); LYMPHOCYTES % (AUTO) 12.1 % (20.0-45.0); MEAN CORPUSCULAR HEMOGLOBIN 23.5 PG (27.0-31.0); MEAN CORPUSCULAR HGB CONC 29.2 G/DL (32.0-36.0); MEAN CORPUSCULAR VOLUME 80 FL (80-99); MEAN PLATELET VOLUME 7.5 FL (6.5-10.1); MONOCYTES % (AUTO) 15.1 % (1.0-10.0); NEUTROPHILS % (AUTO) 69.9 % (45.0-75.0); PLATELET COUNT 202 K/UL (150-450); RED BLOOD COUNT 6.58 M/UL (4.70-6.10); RED CELL DISTRIBUTION WIDTH 17.5 % (11.6-14.8); WHITE BLOOD COUNT 5.9 K/UL (4.8-10.8)
[2016-07-27 07:58] LABS: CALCIUM 8.2 mg/dL (8.6-10.2); CREATININE 1.5 mg/dL (0.7-1.2); GLOMERULAR FILTRATION RATE 57.7 mL/min (>60); POTASSIUM 3.8 mEQ/L (3.4-4.9); TOTAL PROTEIN 6.5 g/dL (6.6-8.7)
[2016-07-27 08:00] VITALS: BP 116/68
[2016-07-27 08:36] VITALS: BP 116/68
[2016-07-27] MEDS: Carvedilol 6.25mg Tab ORAL SCH (08:36)
[2016-07-27] MEDS: acetaZOLAMIDE 500mg Inj IVP SCH (08:36)
[2016-07-27] MEDS: Lisinopril 20mg tab ORAL SCH (08:36)
[2016-07-27] MEDS: Lactulose 20gm/30ml UDC ORAL SCH ×2 (08:37→12:10)
[2016-07-27] MEDS: Docusate 100mg tablet ORAL SCH ×2 (08:37→12:11)
[2016-07-27] MEDS: Heparin 5000 units/ml inj SUBQ SCH (08:38)
--- NOTE | 2016-07-27 10:08 | Nephrology Progress Note ---
Assessment/Plan Assessment 1.ARF 2.CKD 3.Fluid overloud 4.morbid obesity 5.sleep apnea ? 6.HTN Plan PLAN to decrease diuretic dose check in put and out monitoring renal function avoid NSAID Subjective Constitutional: Reports: no symptoms HEENT: Reports: mouth pain, no symptoms Genitourinary: Reports: no symptoms Neurologic/Psychiatric: Reports: no symptoms Subjective alert and awake diuresing well less sob Objective Objective Last 24 Hour Vital Signs Date Time Temp Pulse Resp B/P Pulse Ox O2 Delivery O2 Flow Rate FiO2 07/27/16 08:36 87 116/68 07/27/16 08:36 116/68 07/27/16 08:00 98.4 87 17 116/68 95 Room Air 07/27/16 07:04 92 Nasal Cannula 1.0 24 07/27/16 07:04 Nasal Cannula 1.0 07/27/16 07:04 72 18 Nasal Cannula 1.0 24 07/27/16 04:12 98.5 72 21 102/68 90 Nasal Cannula 2.0 07/27/16 04:00 96 07/27/16 00:15 97.9 86 20 136/82 98 Nasal Cannula 2.0 07/27/16 00:00 90 07/26/16 21:00 86 150/97 07/26/16 20:22 98 Nasal Cannula 2.0 28 07/26/16 20:22 Nasal Cannula 2.0 28 07/26/16 20:21 86 18 Nasal Cannula 2.0 28 07/26/16 20:00 91 07/26/16 20:00 97.5 90 20 150/97 95 Nasal Cannula 2.0 07/26/16 16:00 98.1 87 20 130/91 98 Nasal Cannula 2.0 07/26/16 16:00 88 07/26/16 12:00 97.7 88 18 150/108 93 Nasal Cannula 2.0 07/26/16 12:00 87 Intake and Output 07/26/16 07/27/16 19:00 07:00 Intake Total 720 ml 300 ml Output Total 675 ml 2000 ml Balance 45 ml -1700 ml Intake Oral 720 ml 300 ml Output Urine Total 675 ml 2000 ml Laboratory Tests 07/26/16 10:50: Arterial Blood pH 7.440, Arterial Blood Partial Pressure CO2 78.4*H, Arterial Blood Partial Pressure O2 42.3*L, Arterial Blood HCO3 52.2H, Arterial Blood Oxygen Saturation 77.3L, Arterial Blood Base Excess 22.3, [place] Test Positive 07/26/16 11:02: Arterial Blood pH 7.400, Arterial Blood Partial Pressure CO2 84.3*H, Arterial Blood Partial Pressure O2 62.6L, Arterial Blood HCO3 51.8H, Arterial Blood Oxygen Saturation 90.4L, Arterial Blood Base Excess 21.0, [place] Test Positive 07/27/16 06:37: White Blood Count 5.9, Red Blood Count 6.58H, Hemoglobin 15.5, Hematocrit 52.9H , Mean Corpuscular Volume 80, Mean Corpuscular Hemoglobin 23.5L, Mean Corpuscular Hemoglobin Concent 29.2L, Red Cell Distribution Width 17.5H, Platelet Count 202, Mean Platelet Volume 7.5, Neutrophils (%) (Auto) 69.9, Lymphocytes (%) (Auto) 12.1L, Monocytes (%) (Auto) 15.1H, Eosinophils (%) (Auto ) 2.1, Basophils (%) (Auto) 0.8, Sodium Level 141, Potassium Level 3.8, Chloride Level 90L, Carbon Dioxide Level 40H, Anion Gap 11, Blood Urea Nitrogen 26H, Creatinine 1.5H, Estimat Glomerular Filtration Rate 57.7, Glucose Level 111H, Calcium Level 8.2L, Total Bilirubin 0.7, Aspartate Amino Transf (AST/SGOT ) 29, Alanine Aminotransferase (ALT/SGPT) 36, Alkaline Phosphatase 74, Pro-B- Type Natriuretic Peptide 1937H, Total Protein 6.5L, Albumin 3.3L, Globulin 3.2, Albumin/Globulin Ratio 1.0 Height (Feet): 5 Height (Inches): 10.00 Weight (Pounds): 277 Objective VITAL SIGNS: The patient has temperature of 97 degrees, blood pressure of 104/51, pulse rate of 91, and respiratory rate of 18. HEAD AND NECK: No JVP. No LAD. No thyromegaly. Extraocular movement intact. Pupils reactive to light and accommodation. LUNGS: Clear to auscultation. CARDIAC: Regular rate and rhythm. S1 and S2 no murmur. No rub. ABDOMEN: Soft, nontender, and nondistended. EXTREMITIES: Trace edema. No clubbing. No cyanosis. NEUROLOGIC: Cranial nerves II through XII within normal limits. Upper and lower extremities are grossly intact. SHERMAN GRANT Jul 27, 2016 10:08
[2016-07-27] MEDS ORDERED: FUROSEMIDE40 MG ORAL (11:59)
[2016-07-27] MEDS ORDERED: LISINOPRIL20 MG ORAL (11:59)
[2016-07-27] MEDS ORDERED: COREG6.25 MG ORAL (11:59)
--- NOTE | 2016-07-27 22:27 | Cardiology Report ---
APPROVED REPORT EKG Measurement Heart [id number] Normal sinus rhythm Right atrial enlargement Borderline ECG
--- NOTE | 2016-07-28 11:13 | Discharge Summary ---
Discharge Summary Hospital Course Date of Admission Jul 23, 2016 at 23:02 Date of Discharge Jul 27, 2016 at 13:45 Admitting Diagnosis CHF, SOB HPI César Dietrich is a 60 year old male who was admitted on Jul 23, 2016 at 23:02 for Congestive Heart Failure,Shortness Of Breath Hospital Course [id number] Discharge Discharge Disposition Patient was discharged to Home (01) Discharge Diagnoses: Nat Hidalgo NP Jul 28, 2016 11:13
[2016-07-28 13:43] LABS: CREATININE RANDOM URINE 83.1 mg/dL (Not Estab.); MICROALBUMIN/CREATININE RATIO 146.2 mg/g creat (0.0-30.0)
[2016-07-28 17:13] LABS: VITAMIN D 25-OH TOTAL 9.5 ng/mL (.)
--- NOTE | 2016-07-28 22:28 | Discharge Summary 2 SIG ---
DATE OF ADMISSION: 07/23/2016 DATE OF DISCHARGE: 07/27/2016 CONSULTANTS: 1. Mark Oreilly M.D. 2. Angi Peguero M.D. BRIEF HOSPITAL COURSE: The patient is a 60-year-old male with history of hypertension, congestive heart failure, and noncompliance with medications. He presented to the ED for evaluation of shortness of breath with increased leg swelling. The patient states that he used to take a water pill, but has not been taking it for the past several months because he ran out. Shortness of breath was intermittent, sometimes occurs at rest, sometimes on exertion while walking. On evaluation at ED, chest x-ray showed cardiomegaly, BNP was greater than 4000, creatinine elevated to 1.7, and potassium was 5.1. Blood pressure was elevated to 165/115. The patient was admitted for further evaluation and management. Dr. Oreilly was consulted. Over the past two weeks, there has been increased swelling around the ankles and legs and has been short of breath using two pillows,, and has significant dyspnea on exertion. Echocardiogram showed cardiomyopathy with ejection fraction of 35% to 40% with global hypokinesis and diastolic flattening of the ventricular septum, pulmonary systolic pressure of 60. There was moderate to severe mitral regurgitation. He was given education on importance of diet, fluid restriction, and sodium restriction and stressed the need for compliance with medications. He seemed to have symptoms of right heart failure and left heart failure as well. He was given Coreg and Lasix and Diamox was added. He was followed by Dr. Peguero for evaluation of acute renal failure and management of renal disease and electrolyte imbalance. Renal ultrasound done was negative. The patient has been diuresing well, BNP trending down. The patient was eventually discharged home. FINAL DIAGNOSES: 1. Acute on chronic systolic diastolic congestive heart failure. 2. Pulmonary hypertension. 3. Systemic hypertension. 4. Acute renal failure. 5. Chronic kidney disease. 6. Morbid obesity. 7. Possible sleep apnea. 8. Hypertensive urgency. 9. Mitral regurgitation. 10. Medication noncompliance. 11. Hypercapnia. Mirali Zarrabi, M.D. I have been assigned to dictate discharge summary on this account and I was not involved in the patient's management. Nat Hidalgo N.P. DR: MARIPOSA JOB#: [id number] CC: BRET
--- NOTE | 2016-08-02 10:34 | Diagnostic Imaging Report ---
APPROVED REPORT CPT Code: 14349 Present Symptoms Shortness of breath BILATERAL: Imaging reveals a patent deep venous system bilaterally. There is no evidence of thrombus within the femoral, popliteal or tibial segments. The greater saphenous veins are also within normal limits. Doppler indicates normal spontaneous flow within these segments.
== END 2016-07-27 13:45 | disposition home or self-care (01) | DRG 194 ==
LOC: EMR 19:19 → EDBEDREQ 22:52 → 2E 23:02
DX: I13.0 Hypertensive heart and chronic kidney disease with heart failure and stage 1 through stage 4 chronic kidney disease, or unspecified chronic kidney disease (principal); N17.9 Acute kidney failure, unspecified; E87.5 Hyperkalemia; I27.2 Other secondary pulmonary hypertension; E66.01 Morbid (severe) obesity due to excess calories; I42.9 Cardiomyopathy, unspecified; I16.0 Hypertensive urgency; Z68.39 Body mass index [BMI] 39.0-39.9, adult; G47.33 Obstructive sleep apnea (adult) (pediatric); I50.23 Acute on chronic systolic (congestive) heart failure; Z91.14 Patient's other noncompliance with medication regimen; I34.0 Nonrheumatic mitral (valve) insufficiency; N18.9 Chronic kidney disease, unspecified
CPT/HCPCS: 36415; 36600; 71010; 76775; 80053; 80069; 81001; 82043; 82044; 82306; 82436; 82533; 82550; 82553; 82570; 82803; 83735; 83880; 83930; 83935; 84100; 84133; 84300; 84439; 84443; 84484; 84550; 85025; 89050; 93005; 93306; 93970; 94664; 94760

== ENCOUNTER 2017-05-26 13:00 | Inpatient (IN) | payer MEDICAID ==
[~2017-05-26] VITALS: Ht 170.2 cm; Wt 114.8 kg
[~2017-05-26 13:00] MED LIST: COREG6.25 MG ORAL; FUROSEMIDE40 MG ORAL; LISINOPRIL20 MG ORAL; LOSARTAN POTASS50 MG ORAL
[2017-05-26] MEDS ORDERED: ASPIR 8181 MG ORAL (13:23)
[2017-05-26] MEDS ORDERED: FUROSEMIDE20 M1 ORAL (13:23)
[2017-05-26 13:24] VITALS: BP 155/97
[2017-05-26] MEDS ORDERED: Albuterol ud Inhalation HHN ONE (13:30)
[2017-05-26] MEDS ORDERED: Ipratropium 0.02% Inh Soln 2.5ml UD HHN ONE (13:30)
--- NOTE | 2017-05-26 13:51 | Emergency Room Report ---
History of Present Illness General Chief Complaint: Dyspnea/Respdistress Source: Medical Record Present Illness HPI Patient presents with complaints of cough and congestion Shortness of breath Patient reports that he has had several medications changed by his primary physician more recently now he has developed increased cough Patient had recent sleep studies however was not able to get oxygen at home and presents fairly hypoxic Denies any pleurisy denies any vomiting or diarrhea denies any recent travel Patient also recently injured his right tibial region Allergies: Coded Allergies: No Known Allergies (Unverified , 07/23/16) Patient History Past Medical History: see triage record Pertinent Family History: none Reviewed Nursing Documentation: PMH: Agreed, PSxH: Agreed Nursing Documentation-PMH Past Medical History: No History, Except For Hx Cardiac Problems: Yes - CHF Hx Hypertension: Yes - sleep apnea Hx Cancer: No Hx Gastrointestinal Problems: No Hx Neurological Problems: No Review of Systems All Other Systems: negative except mentioned in HPI Physical Exam Vital Signs Date Time Temp Pulse Resp B/P (MAP) Pulse Ox O2 Delivery O2 Flow Rate FiO2 05/26/17 13:05 98.1 89 20 122/65 66 Room Air 05/26/17 13:24 3.0 Sp02 EP Interpretation: reviewed, abnormal - Initial saturation on room air reported 66% this is low interpretation, on 2 L nasal cannula patient is saturating at 92% which is normal for the patient General Appearance: well appearing, no apparent distress Head: normocephalic, atraumatic Eyes: bilateral eye PERRL, bilateral eye EOMI ENT: hearing grossly normal, normal pharynx, TMs + canals normal, uvula midline Neck: full range of motion, supple, no meningismus, no bony tend Respiratory: no respiratory distress, no retraction, no accessory muscle use, crackles - diffusely Cardiovascular #1: normal peripheral pulses, regular rate, rhythm, no gallop, no JVD, no murmur Gastrointestinal: normal bowel sounds, non tender, soft, no mass, no organomegaly, non-distended, no guarding, no hernia, no pulsatile mass, no rebound Genitourinary: no CVA tenderness Musculoskeletal: normal inspection Neurologic: oriented x3, responsive, last ironer III-XII nml as tested, motor strength/ tone normal, sensory intact Psychiatric: mood/affect normal Skin: other - Abrasion right mid tibial region, pitting edema bilaterally Lymphatic: normal inspection, no adenopathy Medical Decision Making Diagnostic Impression: Primary Impression: Dyspnea Additional Impressions: Respiratory distress COPD exacerbation ER Course Patient is a fairly complex patient with multiple differential to consideration including but not limited to cardiac cardiopulmonary and vascular emergencies Patient has done better with acute breathing treatments Given the clinical exam was also given diuretics x-ray shows cardiomegaly Patient remained hypoxic on room air and will require further inpatient care Labs Test 05/26/17 13:39 05/26/17 13:40 White Blood Count 5.4 K/UL (4.8-10.8) Red Blood Count 7.13 M/UL (4.70-6.10) Hemoglobin 14.8 G/DL (14.2-18.0) Hematocrit 53.3 % (42.0-52.0) Mean Corpuscular Volume 75 FL (80-99) Mean Corpuscular Hemoglobin 20.7 PG (27.0-31.0) Mean Corpuscular Hemoglobin Concent 27.7 G/DL (32.0-36.0) Red Cell Distribution Width 18.3 % (11.6-14.8) Platelet Count 240 K/UL (150-450) Mean Platelet Volume 6.3 FL (6.5-10.1) Neutrophils (%) (Auto) 72.8 % (45.0-75.0) Lymphocytes (%) (Auto) 13.2 % (20.0-45.0) Monocytes (%) (Auto) 13.1 % (1.0-10.0) Eosinophils (%) (Auto) 0.3 % (0.0-3.0) Basophils (%) (Auto) 0.6 % (0.0-2.0) Sodium Level 137 MMOL/L (136-145) Potassium Level 5.1 MMOL/L (3.5-5.1) Chloride Level 100 MMOL/L (98-107) Carbon Dioxide Level 36 MMOL/L (21-32) Anion Gap 1 mmol/L (5-15) Blood Urea Nitrogen 40 mg/dL (7-18) Creatinine 1.8 MG/DL (0.55-1.30) Estimat Glomerular Filtration Rate 46.5 mL/min (>60) Glucose Level 97 MG/DL (74-106) Calcium Level 8.4 MG/DL (8.5-10.1) Total Bilirubin 1.1 MG/DL (0.2-1.0) Direct Bilirubin 0.5 MG/DL (0.0-0.3) Aspartate Amino Transf (AST/SGOT) 30 U/L (15-37) Alanine Aminotransferase (ALT/SGPT) 27 U/L (12-78) Alkaline Phosphatase 107 U/L (46-116) Total Creatine Kinase 76 U/L (26-308) Creatine Kinase MB 2.0 NG/ML (0.0-3.6) Creatine Kinase MB Relative Index 2.6 Troponin I 0.035 ng/mL (0.000-0.056) Pro-B-Type Natriuretic Peptide 2886 pg/mL (0-125) Total Protein 6.9 G/DL (6.4-8.2) Albumin 2.9 G/DL (3.4-5.0) Globulin 4.0 g/dL Albumin/Globulin Ratio 0.7 (1.0-2.7) Venous Bld O2 Saturation (Measured) 29.7 Methemoglobin 0.4 EKG Diagnostic Results Rate: normal Rhythm: NSR ST Segments: other - Nonspecific ST/T-wave changes Rhythm Strip Diag. Results EP Interpretation: yes Rate: 88 Rhythm: NSR, no PVC's, no ectopy Chest X-Ray Diagnostic Results Chest X-Ray Diagnostic Results : Chest X-Ray Ordered: Yes # of Views/Limited/Complete: 1 View Indication: Chest Pain EP Interpretation: Yes Interpretation: no consolidation, no effusion, no pneumothorax, other - cardiomegaly, wide mediastinum Impression: No acute disease Electronically Signed by: Santi Farah DO Last Vital Signs Date Time Temp Pulse Resp B/P (MAP) Pulse Ox O2 Delivery O2 Flow Rate FiO2 05/26/17 13:24 78 17 Nasal Cannula 4.0 05/26/17 13:24 155/97 95 05/26/17 13:05 98.1 Status: improved Disposition: ADMITTED INPATIENT Condition: Serious SANTI FARAH D.O. May 26, 2017 13:51
[2017-05-26 13:53] LABS: BASOPHILS % (AUTO) 0.6 % (0.0-2.0); EOSINOPHILS % (AUTO) 0.3 % (0.0-3.0); HEMATOCRIT 53.3 % (42.0-52.0); HEMOGLOBIN 14.8 G/DL (14.2-18.0); LYMPHOCYTES % (AUTO) 13.2 % (20.0-45.0); MEAN CORPUSCULAR VOLUME 75 FL (80-99); MONOCYTES % (AUTO) 13.1 % (1.0-10.0); NEUTROPHILS % (AUTO) 72.8 % (45.0-75.0); PLATELET COUNT 240 K/UL (150-450); RED BLOOD COUNT 7.13 M/UL (4.70-6.10); RED CELL DISTRIBUTION WIDTH 18.3 % (11.6-14.8); WHITE BLOOD COUNT 5.4 K/UL (4.8-10.8)
[2017-05-26 14:09] LABS: ANION GAP 1 mmol/L (5-15); BLOOD UREA NITROGEN 40 mg/dL (7-18); CALCIUM 8.4 MG/DL (8.5-10.1); CARBON DIOXIDE 36 MMOL/L (21-32); CHLORIDE 100 MMOL/L (98-107); CREATININE 1.8 MG/DL (0.55-1.30); POTASSIUM 5.1 MMOL/L (3.5-5.1); SODIUM 137 MMOL/L (136-145)
[2017-05-26 14:23] LABS: ALANINE AMINOTRANSFERASE 27 U/L (12-78); ALBUMIN 2.9 G/DL (3.4-5.0); ALBUMIN/GLOBULIN RATIO 0.7 (1.0-2.7); ALKALINE PHOSPHATASE 107 U/L (46-116); ASPARTATE AMINO TRANSFERASE 30 U/L (15-37); BILIRUBIN,DIRECT 0.5 MG/DL (0.0-0.3); BILIRUBIN,TOTAL 1.1 MG/DL (0.2-1.0); CREATINE KINASE 76 U/L (26-308)
[2017-05-26] MEDS ORDERED: Bacitracin Oint UD TOPIC ONE (14:47)
[2017-05-26] MEDS ORDERED: Morphine Sulfate 2mg/ml Inj IVP PRN (15:15)
[2017-05-26] MEDS ORDERED: Ketorolac 30mg Inj IV PRN (15:15)
[2017-05-26] MEDS ORDERED: Nitroglycerin Subl 0.4mg tab SL PRN (15:15)
[2017-05-26] MEDS ORDERED: Albuterol/Ipratropium 3ml neb HHN PRN (15:15)
[2017-05-26] MEDS ORDERED: LORazepam Inj 2mg/ml 1ml IV PRN (15:15)
[2017-05-26] MEDS ORDERED: Promethazine/Codeine 5ml UD ORAL PRN (15:15)
[2017-05-26] MEDS: Zosyn 3.375gm q8h **Extended infusion IVPB SCH ×4 (17:10→21:13)
[2017-05-26] MEDS: Solu-MEDROL 125mg Inj IV SCH (17:10)
--- NOTE | 2017-05-26 19:46 | History and Physical ---
History of Present Illness General Date patient seen: May 26, 2017 Reason for Hospitalization: Dyspnea/Respdistress Present Illness HPI 61 year old male with hx of HTN, CHF, morbid obesity presented with complaints of cough and congestion, Shortness of breath. Pt's cxr in ER showed pulmonary edema and cardiomegaly. Pt is admitted to telemetry for further work up. Allergies: Coded Allergies: No Known Allergies (Unverified , 07/23/16) Medication History Scheduled Aspirin* (Aspir 81*), 81 MG ORAL DAILY, (Reported) Carvedilol (Coreg), 6.25 MG ORAL EVERY 12 HOURS Furosemide* (Lasix*), 40 MG ORAL DAILY Furosemide* (Lasix*), 20 MG ORAL DAILY, (Reported) Lisinopril (Lisinopril*), 20 MG ORAL DAILY Losartan Potassium* (Losartan Potassium*), 100 MG ORAL DAILY, (Reported) Patient History Healthcare decision maker N Resuscitation status Full Code Advanced Directive on File No Past Medical/Surgical History Past Medical/Surgical History: (1) HTN (hypertension) (2) CHF (congestive heart failure) Review of Systems Respiratory: Reports: shortness of breath, wheezing Physical Exam General Appearance: WD/WN, no apparent distress Lines, tubes and drains: peripheral HEENT: normocephalic, atraumatic Neck: non-tender, normal alignment Respiratory/Chest: chest wall non-tender, lungs clear Breasts: no masses Cardiovascular/Chest: normal peripheral pulses Abdomen: normal bowel sounds, non tender Genitourinary/Rectal: normal genital exam Extremities: normal range of motion Skin Exam: normal pigmentation 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 Last 24 Hour Vital Signs Date Time Temp Pulse Resp B/P (MAP) Pulse Ox O2 Delivery O2 Flow Rate FiO2 05/26/17 16:07 75 12 136/78 94 Nasal Cannula 4.0 05/26/17 13:50 79 20 95 Nasal Cannula 4.0 36 05/26/17 13:35 75 22 96 Nasal Cannula 4.0 36 05/26/17 13:24 78 17 Nasal Cannula 4.0 05/26/17 13:24 78 17 155/97 95 Nasal Cannula 3.0 05/26/17 13:05 98.1 89 20 122/65 66 Room Air Laboratory Tests Test 05/26/17 13:39 05/26/17 13:40 White Blood Count 5.4 K/UL (4.8-10.8) Red Blood Count 7.13 M/UL (4.70-6.10) H Hemoglobin 14.8 G/DL (14.2-18.0) Hematocrit 53.3 % (42.0-52.0) H Mean Corpuscular Volume 75 FL (80-99) L Mean Corpuscular Hemoglobin 20.7 PG (27.0-31.0) L Mean Corpuscular Hemoglobin Concent 27.7 G/DL (32.0-36.0) L Red Cell Distribution Width 18.3 % (11.6-14.8) H Platelet Count 240 K/UL (150-450) Mean Platelet Volume 6.3 FL (6.5-10.1) L Neutrophils (%) (Auto) 72.8 % (45.0-75.0) Lymphocytes (%) (Auto) 13.2 % (20.0-45.0) L Monocytes (%) (Auto) 13.1 % (1.0-10.0) H Eosinophils (%) (Auto) 0.3 % (0.0-3.0) Basophils (%) (Auto) 0.6 % (0.0-2.0) Sodium Level 137 MMOL/L (136-145) Potassium Level 5.1 MMOL/L (3.5-5.1) Chloride Level 100 MMOL/L (98-107) Carbon Dioxide Level 36 MMOL/L (21-32) H Anion Gap 1 mmol/L (5-15) L Blood Urea Nitrogen 40 mg/dL (7-18) H Creatinine 1.8 MG/DL (0.55-1.30) H Estimat Glomerular Filtration Rate 46.5 mL/min (>60) Glucose Level 97 MG/DL (74-106) Calcium Level 8.4 MG/DL (8.5-10.1) L Total Bilirubin 1.1 MG/DL (0.2-1.0) H Direct Bilirubin 0.5 MG/DL (0.0-0.3) H Aspartate Amino Transf (AST/SGOT) 30 U/L (15-37) Alanine Aminotransferase (ALT/SGPT) 27 U/L (12-78) Alkaline Phosphatase 107 U/L (46-116) Total Creatine Kinase 76 U/L (26-308) Creatine Kinase MB 2.0 NG/ML (0.0-3.6) Creatine Kinase MB Relative Index 2.6 Troponin I 0.035 ng/mL (0.000-0.056) Pro-B-Type Natriuretic Peptide 2886 pg/mL (0-125) H Total Protein 6.9 G/DL (6.4-8.2) Albumin 2.9 G/DL (3.4-5.0) L Globulin 4.0 g/dL Albumin/Globulin Ratio 0.7 (1.0-2.7) L Venous Blood pH Pending Venous Blood Partial Pressure CO2 Pending Venous Blood Partial Pressure O2 Pending Venous Blood HCO3 Pending Venous Blood Total Carbon Dioxide Pending Venous Bld O2 Saturation (Measured) 29.7 Venous Blood Oxygen Saturation Pending Venous Blood Base Excess Pending Methemoglobin 0.4 Sodium (Blood Gas) Pending Height (Feet): 5 Height (Inches): 7.00 Weight (Pounds): 304 Medications Current Medications Medications (Trade) Dose Ordered Sig/Judy Route PRN Reason Start Time Stop Time Status Last Admin Dose Admin Albuterol/ Ipratropium (Albuterol/ Ipratropium) 3 ml Q4H PRN HHN dyspnea 05/26/17 15:15 05/31/17 15:14 Carvedilol (Coreg) 6.25 mg EVERY 12 HOURS ORAL 05/26/17 21:00 06/25/17 20:59 Dextrose (Dextrose 50%) STAT PRN IV Hypoglycemia 05/26/17 15:15 06/25/17 15:14 Furosemide (Lasix) 20 mg DAILY ORAL 05/27/17 09:00 06/26/17 08:59 Heparin Sodium (Porcine) (Heparin 5000 units/ml) 5,000 units EVERY 12 HOURS SUBQ 05/26/17 21:00 06/25/17 20:59 Ketorolac Tromethamine (Toradol 30mg) 30 mg Q8H PRN IV Moderate Pain (Pain Scale 4-6) 05/26/17 15:15 05/31/17 15:14 Lisinopril (Prinivil) 20 mg DAILY ORAL 05/27/17 09:00 06/26/17 08:59 Lorazepam (Ativan 2mg/ml 1ml) 0.5 mg Q4H PRN IV For Anxiety 05/26/17 15:15 06/02/17 15:14 Methylprednisolone Sodium Succinate (Solu-MEDROL) 60 mg EVERY 6 HOURS IV 05/26/17 18:00 06/25/17 17:59 05/26/17 17:10 Morphine Sulfate (Morphine Sulfate) 2 mg Q4H PRN IVP Severe Pain (Pain Scale 7-10) 05/26/17 15:15 06/02/17 15:14 Nitroglycerin (Ntg) 0.4 mg Q5M X 3 DOSES PRN SL Prn Chest Pain 05/26/17 15:15 06/25/17 15:14 Ondansetron HCl (Zofran) 4 mg Q6H PRN IVP Nausea & Vomiting 05/26/17 15:15 06/25/17 15:14 Piperacillin Sod/ Tazobactam Sod 3.375 gm/Sodium Chloride 110 ml @ 27.5 mls/hr EVERY 8 HOURS IVPB 05/26/17 16:00 05/31/17 15:59 05/26/17 17:10 Promethazine HCl/ Codeine (Phenergan with Codeine) 5 ml Q6H PRN ORAL cough 05/26/17 15:15 06/25/17 15:14 Temazepam (Restoril) 15 mg HSPRN PRN ORAL Insomnia 05/26/17 21:00 06/02/17 20:59 Theophylline (Frandy-Dur) 100 mg EVERY 12 HOURS ORAL 05/26/17 21:00 06/25/17 20:59 Assessment/Plan Problem List: (1) Respiratory distress ICD Codes: R06.03 - Acute respiratory distress SNOMED: 256492910 (2) CHF (congestive heart failure) ICD Codes: I50.9 - Heart failure, unspecified SNOMED: 87620367 (3) HTN (hypertension) ICD Codes: I10 - Essential (primary) hypertension SNOMED: 19712650 Assessment/Plan respiratory treatment diuretics echo watch BP check electrolytes closely on Lasix wound care for left [place] skin tear. KEITH CHONG May 26, 2017 19:45
[2017-05-26 20:00] VITALS: BP 142/85
[2017-05-26] MEDS ORDERED: Morphine Sulfate 4mg/ml Inj IVP PRN (20:00)
[2017-05-26] MEDS: Carvedilol 6.25mg Tab ORAL SCH (21:13)
[2017-05-26] MEDS: Theophylline ER 100mg ORAL SCH (21:13)
[2017-05-26] MEDS: Heparin 5000 units/ml inj SUBQ SCH (21:15)
[2017-05-26] MEDS ORDERED: Piperacillin/Tazobactam 2.25 GM in D5W 55 ML IV SCH (22:00)
[2017-05-27] VITALS (14 sets, daily range): BP systolic 102–159; BP diastolic 67–103
[2017-05-27] MEDS: Solu-MEDROL 125mg Inj IV SCH ×5 (00:01→23:50)
[2017-05-27] MEDS: Zosyn 3.375gm q8h **Extended infusion IVPB SCH ×4 (05:18→14:30)
--- NOTE | 2017-05-27 08:32 | Diagnostic Imaging Report ---
. Indication: Shortness of breath Technique: XRAY Chest 1v Comparison: 07/26/2016 Findings: Low lung volumes exaggerate heart size and vascular markings. Heart is enlarged, likely stable allowing for differences in technique. Mediastinal contours are sharp. There is pulmonary vascular congestion with possible mild interstitial edema/fluid overload. No definite focal airspace consolidation identified. No pneumothorax. Degenerative changes are noted in the spine. No acute osseous abnormality appreciated. Impression: Cardiomegaly with likely mild pulmonary vascular congestion/fluid overload. Findings may be exaggerated by low lung volumes. Clinical correlation and follow-up exam recommended. Study obtained via the emergency department however patient admitted to the hospital at time of dictation of final report.
--- NOTE | 2017-05-27 08:59 | Pulmonology Progress Note ---
Assessment/Plan Problems: (1) Respiratory distress (2) CHF (congestive heart failure) (3) HTN (hypertension) Assessment/Plan slightly better watch bp continue lasix check electrolytes wound care Subjective ROS Limited/Unobtainable: No Constitutional: Reports: no symptoms HEENT: Repors: no symptoms Respiratory: Reports: no symptoms Allergies: Coded Allergies: No Known Allergies (Unverified , 07/23/16) Objective Last 24 Hour Vital Signs Date Time Temp Pulse Resp B/P (MAP) Pulse Ox O2 Delivery O2 Flow Rate FiO2 05/27/17 04:00 83 05/27/17 03:50 98.0 78 20 153/103 94 05/27/17 00:00 81 05/27/17 00:00 98.1 82 20 148/88 90 05/26/17 21:13 81 142/85 05/26/17 20:00 73 05/26/17 20:00 97.9 81 20 142/85 94 05/26/17 16:07 75 12 136/78 94 Nasal Cannula 4.0 05/26/17 13:50 79 20 95 Nasal Cannula 4.0 36 05/26/17 13:35 75 22 96 Nasal Cannula 4.0 36 05/26/17 13:24 78 17 Nasal Cannula 4.0 05/26/17 13:24 78 17 155/97 95 Nasal Cannula 3.0 05/26/17 13:05 98.1 89 20 122/65 66 Room Air Intake and Output 05/26/17 05/27/17 19:00 07:00 Intake Total 527.5 ml 427.5 ml Output Total 600 ml 400 ml Balance -72.5 ml 27.5 ml Intake Oral 500 ml 400 ml IV Total 27.5 ml 27.5 ml Output Urine Total 600 ml 400 ml # Voids 2 1 General Appearance: WD/WN HEENT: normocephalic, atraumatic Respiratory/Chest: chest wall non-tender, lungs clear Cardiovascular: normal peripheral pulses, regular rhythm Abdomen: normal bowel sounds, soft, non tender Skin: other - right [place] 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 Lymphatic: no neck adenopathy Laboratory Tests 05/26/17 13:39: White Blood Count 5.4, Red Blood Count 7.13H, Hemoglobin 14.8, Hematocrit 53.3H , Mean Corpuscular Volume 75L, Mean Corpuscular Hemoglobin 20.7L, Mean Corpuscular Hemoglobin Concent 27.7L, Red Cell Distribution Width 18.3H, Platelet Count 240, Mean Platelet Volume 6.3L, Neutrophils (%) (Auto) 72.8, Lymphocytes (%) (Auto) 13.2L, Monocytes (%) (Auto) 13.1H, Eosinophils (%) (Auto ) 0.3, Basophils (%) (Auto) 0.6, Sodium Level 137, Potassium Level 5.1, Chloride Level 100, Carbon Dioxide Level 36H, Anion Gap 1L, Blood Urea Nitrogen 40H, Creatinine 1.8H, Estimat Glomerular Filtration Rate 46.5, Glucose Level 97 , Calcium Level 8.4L, Total Bilirubin 1.1H, Direct Bilirubin 0.5H, Aspartate Amino Transf (AST/SGOT) 30, Alanine Aminotransferase (ALT/SGPT) 27, Alkaline Phosphatase 107, Total Creatine Kinase 76, Creatine Kinase MB 2.0, Creatine Kinase MB Relative Index 2.6, Troponin I 0.035, Pro-B-Type Natriuretic Peptide 2886H, Total Protein 6.9, Albumin 2.9L, Globulin 4.0, Albumin/Globulin Ratio 0.7L 05/26/17 13:40: Venous Blood pH [Pending], Venous Blood Partial Pressure CO2 [Pending], Venous Blood Partial Pressure O2 [Pending], Venous Blood HCO3 [Pending], Venous Blood Total Carbon Dioxide [Pending], Venous Bld O2 Saturation (Measured) 29.7, Venous Blood Oxygen Saturation [Pending], Venous Blood Base Excess [Pending], Methemoglobin 0.4, Sodium (Blood Gas) [Pending] Current Medications Medications (Trade) Dose Ordered Sig/Judy Route PRN Reason Start Time Stop Time Status Last Admin Dose Admin Albuterol/ Ipratropium (Albuterol/ Ipratropium) 3 ml Q4H PRN HHN dyspnea 05/26/17 15:15 05/31/17 15:14 Carvedilol (Coreg) 6.25 mg EVERY 12 HOURS ORAL 05/26/17 21:00 06/25/17 20:59 05/26/17 21:13 Dextrose (Dextrose 50%) STAT PRN IV Hypoglycemia 05/26/17 15:15 06/25/17 15:14 Furosemide (Lasix) 20 mg DAILY ORAL 05/27/17 09:00 06/26/17 08:59 Heparin Sodium (Porcine) (Heparin 5000 units/ml) 5,000 units EVERY 12 HOURS SUBQ 05/26/17 21:00 06/25/17 20:59 05/26/17 21:15 Ketorolac Tromethamine (Toradol 30mg) 30 mg Q8H PRN IV Moderate Pain (Pain Scale 4-6) 05/26/17 15:15 05/31/17 15:14 Lisinopril (Prinivil) 20 mg DAILY ORAL 05/27/17 09:00 06/26/17 08:59 Lorazepam (Ativan 2mg/ml 1ml) 0.5 mg Q4H PRN IV For Anxiety 05/26/17 15:15 06/02/17 15:14 Methylprednisolone Sodium Succinate (Solu-MEDROL) 60 mg EVERY 6 HOURS IV 05/26/17 18:00 06/25/17 17:59 05/27/17 05:18 Morphine Sulfate (Morphine Sulfate) 2 mg Q4H PRN IVP Severe Pain (Pain Scale 7-10) 05/26/17 20:00 06/02/17 15:14 Nitroglycerin (Ntg) 0.4 mg Q5M X 3 DOSES PRN SL Prn Chest Pain 05/26/17 15:15 06/25/17 15:14 Ondansetron HCl (Zofran) 4 mg Q6H PRN IVP Nausea & Vomiting 05/26/17 15:15 06/25/17 15:14 Piperacillin Sod/ Tazobactam Sod 3.375 gm/Sodium Chloride 110 ml @ 27.5 mls/hr EVERY 8 HOURS IVPB 05/26/17 16:00 05/31/17 15:59 05/27/17 05:18 Promethazine HCl/ Codeine (Phenergan with Codeine) 5 ml Q6H PRN ORAL cough 05/26/17 15:15 06/25/17 15:14 Temazepam (Restoril) 15 mg HSPRN PRN ORAL Insomnia 05/26/17 21:00 06/02/17 20:59 Theophylline (Frandy-Dur) 100 mg EVERY 12 HOURS ORAL 05/26/17 21:00 06/25/17 20:59 05/26/17 21:13 KEITH CHONG May 27, 2017 08:59
[2017-05-27] MEDS ORDERED: Lisinopril 20mg tab ORAL SCH (09:00)
[2017-05-27] MEDS: Theophylline ER 100mg ORAL SCH ×2 (09:29→21:00)
[2017-05-27] MEDS: Carvedilol 6.25mg Tab ORAL SCH ×2 (09:32→21:00)
[2017-05-27] MEDS: Heparin 5000 units/ml inj SUBQ SCH (09:38)
--- NOTE | 2017-05-27 13:27 | Emergency Room Report ---
Physical Exam Called for code blue/resp arrest. Patient had eaten lunch and then was lethargic. No narcotics.\ Admitted for syncope. Last 24 Hour Vital Signs Date Time Temp Pulse Resp B/P (MAP) Pulse Ox O2 Delivery O2 Flow Rate FiO2 05/27/17 12:00 93 05/27/17 09:36 135/77 05/27/17 09:32 88 135/77 05/27/17 08:00 91 05/27/17 04:00 83 05/27/17 03:50 98.0 78 20 153/103 94 05/27/17 00:00 81 05/27/17 00:00 98.1 82 20 148/88 90 05/26/17 21:13 81 142/85 05/26/17 20:00 73 05/26/17 20:00 97.9 81 20 142/85 94 05/26/17 16:07 75 12 136/78 94 Nasal Cannula 4.0 05/26/17 13:50 79 20 95 Nasal Cannula 4.0 36 05/26/17 13:35 75 22 96 Nasal Cannula 4.0 36 Sp02 EP Interpretation: reviewed, abnormal - low by my interpretation General Appearance: obese, Stupor Eyes: bilateral eye Scleral Injection, bilateral eye other - exopthalmus, sluggish pupils ENT: moist mucus membranes Neck: supple Respiratory: crackles, other - apneustic resps Cardiovascular #1: regular rate, rhythm Cardiovascular #2: 2+ carotid (R) Gastrointestinal: decreased bowel sounds, overweight Musculoskeletal: other - flaccid Neurologic: other - unresponsive Psychiatric: other - unresponsive - agonal resps Skin: cyanosis CPR/Code Blue CPR/Code Blue Narrative Code called at 13:05 Resp arrest. Pulses present. BVM with good air movement. Intubated by me 13:15, good BS and color change. CXR, Vent, ABN, EKG, labs ordered. Transfer to ICU. Intubation Intubation : Consent: Emergent Intubation Method: orotracheal Tube Size (cm): 7.5 Medications: Other - none Breath Sounds after Intubation: equal Intubation Complications: no complications Post Intubation Xray: Yes Attempts: One Patient Tolerated: Well Complications: None Medical Decision Making Diagnostic Impression: Primary Impression: Respiratory arrest Additional Impression: Pulmonary infiltrates ER Course Patient with respiratory arrest with pulses. Intubated by me. Vent, EKG, labs ordered. Transferred to ICU. Improved, but critical. Hemoconcentrated, elevated K, renal insufficiency. Neg troponin. Elevated BNP. Resp acidosis. Laboratory Tests Test 05/26/17 13:39 05/26/17 13:40 05/27/17 13:55 05/27/17 14:20 White Blood Count 5.4 K/UL (4.8-10.8) 5.8 K/UL (4.8-10.8) Red Blood Count 7.13 M/UL (4.70-6.10) H 7.15 M/UL (4.70-6.10) H Hemoglobin 14.8 G/DL (14.2-18.0) 14.8 G/DL (14.2-18.0) Hematocrit 53.3 % (42.0-52.0) H 54.7 % (42.0-52.0) H Mean Corpuscular Volume 75 FL (80-99) L 77 FL (80-99) L Mean Corpuscular Hemoglobin 20.7 PG (27.0-31.0) L 20.7 PG (27.0-31.0) L Mean Corpuscular Hemoglobin Concent 27.7 G/DL (32.0-36.0) L 27.0 G/DL (32.0-36.0) L Red Cell Distribution Width 18.3 % (11.6-14.8) H 18.5 % (11.6-14.8) H Platelet Count 240 K/UL (150-450) 312 K/UL (150-450) Mean Platelet Volume 6.3 FL (6.5-10.1) L 6.6 FL (6.5-10.1) Neutrophils (%) (Auto) 72.8 % (45.0-75.0) % (45.0-75.0) Lymphocytes (%) (Auto) 13.2 % (20.0-45.0) L % (20.0-45.0) Monocytes (%) (Auto) 13.1 % (1.0-10.0) H % (1.0-10.0) Eosinophils (%) (Auto) 0.3 % (0.0-3.0) % (0.0-3.0) Basophils (%) (Auto) 0.6 % (0.0-2.0) % (0.0-2.0) Sodium Level 137 MMOL/L (136-145) 139 MMOL/L (136-145) Potassium Level 5.1 MMOL/L (3.5-5.1) 6.1 MMOL/L (3.5-5.1) *H Chloride Level 100 MMOL/L (98-107) 100 MMOL/L (98-107) Carbon Dioxide Level 36 MMOL/L (21-32) H 36 MMOL/L (21-32) H Anion Gap 1 mmol/L (5-15) L 3 mmol/L (5-15) L Blood Urea Nitrogen 40 mg/dL (7-18) H 39 mg/dL (7-18) H Creatinine 1.8 MG/DL (0.55-1.30) H 2.0 MG/DL (0.55-1.30) H Estimate Glomerular Filtration Rate 46.5 mL/min (>60) 41.2 mL/min (>60) Glucose Level 97 MG/DL (74-106) 204 MG/DL (74-106) #H Calcium Level 8.4 MG/DL (8.5-10.1) L 8.5 MG/DL (8.5-10.1) Total Bilirubin 1.1 MG/DL (0.2-1.0) H 0.7 MG/DL (0.2-1.0) Direct Bilirubin 0.5 MG/DL (0.0-0.3) H Aspartate Amino Transferase (AST) 30 U/L (15-37) 25 U/L (15-37) Alanine Aminotransferase (ALT) 27 U/L (12-78) 24 U/L (12-78) Alkaline Phosphatase 107 U/L (46-116) 109 U/L (46-116) Total Creatine Kinase 76 U/L (26-308) Creatine Kinase MB 2.0 NG/ML (0.0-3.6) Creatine Kinase MB Relative Index 2.6 Troponin I 0.035 ng/mL (0.000-0.056) 0.042 ng/mL (0.000-0.056) Pro-B-Type Natriuretic Peptide 2886 pg/mL (0-125) H 7840 pg/mL (0-125) H Total Protein 6.9 G/DL (6.4-8.2) 7.7 G/DL (6.4-8.2) Albumin 2.9 G/DL (3.4-5.0) L 3.2 G/DL (3.4-5.0) L Globulin 4.0 g/dL 4.5 g/dL Albumin/Globulin Ratio 0.7 (1.0-2.7) L 0.7 (1.0-2.7) L Venous Blood pH Pending Venous Blood Partial Pressure CO2 Pending Venous Blood Partial Pressure O2 Pending Venous Blood HCO3 Pending Venous Blood Total Carbon Dioxide Pending Venous Bld O2 Saturation (Measured) 29.7 Venous Blood Oxygen Saturation Pending Venous Blood Base Excess Pending Methemoglobin 0.4 Sodium (Blood Gas) Pending Differential Total Cells Counted 100 Neutrophils % (Manual) 91 % (45-75) H Lymphocytes % (Manual) 6 % (20-45) L Monocytes % (Manual) 3 % (1-10) Eosinophils % (Manual) 0 % (0-3) Basophils % (Manual) 0 % (0-2) Band Neutrophils 0 % (0-8) Platelet Estimate Adequate Platelet Morphology Normal Polychromasia 1+ Hypochromasia 1+ Microcytosis 1+ Prothrombin Time 13.6 SEC (9.30-11.50) H Prothrombin Time INR 1.3 (0.9-1.1) H Arterial Blood pH 7.272 (7.350-7.450) Arterial Blood Partial Pressure CO2 70.2 mmHg (35.0-45.0) *H Arterial Blood Partial Pressure O2 70.3 mmHg (75.0-100.0) L Arterial Blood HCO3 31.7 mmol/L (22.0-26.0) H Arterial Blood Oxygen Saturation 93.6 % (92.0-98.0) Arterial Blood Base Excess 2.4 [place] Test Positive EKG Diagnostic Results Rate: normal Rhythm: NSR ST Segments: no acute changes - RBBB Rhythm Strip Diag. Results EP Interpretation: yes Rhythm: NSR, no PVC's, no ectopy Chest X-Ray Diagnostic Results Chest X-Ray Diagnostic Results : Chest X-Ray Ordered: Yes # of Views/Limited/Complete: 1 View Indication: Other EP Interpretation: Yes Interpretation: other - ET good, infiltrates with white out R, possible effusion Impression: Other Electronically Signed by: Nato Blevins MD Last Vital Signs Date Time Temp Pulse Resp B/P (MAP) Pulse Ox O2 Delivery O2 Flow Rate FiO2 05/27/17 20:00 80 05/27/17 20:00 97.6 77 16 128/82 95 05/27/17 16:00 Mechanical Ventilator 05/27/17 12:00 4.0 Status: improved Disposition: ADMITTED INPATIENT Condition: Critical Referrals: NON PHYSICIAN (PCP) Nato Blevins M.D. May 27, 2017 13:27
[2017-05-27 14:16] LABS: HEMATOCRIT 54.7 % (42.0-52.0); HEMOGLOBIN 14.8 G/DL (14.2-18.0); MEAN CORPUSCULAR VOLUME 77 FL (80-99); PLATELET COUNT 312 K/UL (150-450); RED BLOOD COUNT 7.15 M/UL (4.70-6.10); RED CELL DISTRIBUTION WIDTH 18.5 % (11.6-14.8); WHITE BLOOD COUNT 5.8 K/UL (4.8-10.8)
[2017-05-27 14:30] LABS: INR 1.3 (0.9-1.1)
[2017-05-27] MEDS ORDERED: LORazepam Inj 2mg/ml 1ml IV PRN (14:30)
[2017-05-27] MEDS ORDERED: Morphine Sulfate 4mg/ml Inj IVP PRN ×2 (14:30→18:30)
[2017-05-27 14:44] LABS: ALANINE AMINOTRANSFERASE 24 U/L (12-78); ALBUMIN 3.2 G/DL (3.4-5.0); ALBUMIN/GLOBULIN RATIO 0.7 (1.0-2.7); ALKALINE PHOSPHATASE 109 U/L (46-116); ANION GAP 3 mmol/L (5-15); ASPARTATE AMINO TRANSFERASE 25 U/L (15-37); BILIRUBIN,TOTAL 0.7 MG/DL (0.2-1.0); BLOOD UREA NITROGEN 39 mg/dL (7-18); CALCIUM 8.5 MG/DL (8.5-10.1); CARBON DIOXIDE 36 MMOL/L (21-32); CHLORIDE 100 MMOL/L (98-107); SODIUM 139 MMOL/L (136-145)
[2017-05-27 14:46] LABS: POTASSIUM 6.1 MMOL/L (3.5-5.1)
--- NOTE | 2017-05-27 16:02 | Cardiology Progress Note ---
Assessment/Plan Assessment/Plan diuretic hold acei in light of elevated k and cr echo and repeat ekg [id number] Objective Last 24 Hour Vital Signs Date Time Temp Pulse Resp B/P (MAP) Pulse Ox O2 Delivery O2 Flow Rate FiO2 05/27/17 15:00 83 19 102/67 94 80 05/27/17 14:35 90 18 80 05/27/17 14:00 82 18 110/73 94 80 05/27/17 13:35 95 18 80 05/27/17 13:00 98.0 78 20 153/103 94 05/27/17 12:00 93 05/27/17 12:00 98.0 92 20 157/98 89 Nasal Cannula 4.0 05/27/17 09:36 135/77 05/27/17 09:32 88 135/77 05/27/17 08:00 91 05/27/17 04:00 83 05/27/17 03:50 98.0 78 20 153/103 94 05/27/17 00:00 81 05/27/17 00:00 98.1 82 20 148/88 90 05/26/17 21:13 81 142/85 05/26/17 20:00 73 05/26/17 20:00 97.9 81 20 142/85 94 05/26/17 16:07 75 12 136/78 94 Nasal Cannula 4.0 Intake and Output 05/26/17 05/27/17 19:00 07:00 Intake Total 527.5 ml 427.5 ml Output Total 600 ml 400 ml Balance -72.5 ml 27.5 ml Intake Oral 500 ml 400 ml IV Total 27.5 ml 27.5 ml Output Urine Total 600 ml 400 ml # Voids 2 1 Laboratory Tests Test 05/27/17 13:55 05/27/17 14:20 White Blood Count 5.8 K/UL (4.8-10.8) Red Blood Count 7.15 M/UL (4.70-6.10) H Hemoglobin 14.8 G/DL (14.2-18.0) Hematocrit 54.7 % (42.0-52.0) H Mean Corpuscular Volume 77 FL (80-99) L Mean Corpuscular Hemoglobin 20.7 PG (27.0-31.0) L Mean Corpuscular Hemoglobin Concent 27.0 G/DL (32.0-36.0) L Red Cell Distribution Width 18.5 % (11.6-14.8) H Platelet Count 312 K/UL (150-450) Mean Platelet Volume 6.6 FL (6.5-10.1) Neutrophils (%) (Auto) % (45.0-75.0) Lymphocytes (%) (Auto) % (20.0-45.0) Monocytes (%) (Auto) % (1.0-10.0) Eosinophils (%) (Auto) % (0.0-3.0) Basophils (%) (Auto) % (0.0-2.0) Differential Total Cells Counted 100 Neutrophils % (Manual) 91 % (45-75) H Lymphocytes % (Manual) 6 % (20-45) L Monocytes % (Manual) 3 % (1-10) Eosinophils % (Manual) 0 % (0-3) Basophils % (Manual) 0 % (0-2) Band Neutrophils 0 % (0-8) Platelet Estimate Adequate Platelet Morphology Normal Polychromasia 1+ Hypochromasia 1+ Microcytosis 1+ Prothrombin Time 13.6 SEC (9.30-11.50) H Prothromb Time International Ratio 1.3 (0.9-1.1) H Sodium Level 139 MMOL/L (136-145) Potassium Level 6.1 MMOL/L (3.5-5.1) *H Chloride Level 100 MMOL/L (98-107) Carbon Dioxide Level 36 MMOL/L (21-32) H Anion Gap 3 mmol/L (5-15) L Blood Urea Nitrogen 39 mg/dL (7-18) H Creatinine 2.0 MG/DL (0.55-1.30) H Estimat Glomerular Filtration Rate 41.2 mL/min (>60) Glucose Level 204 MG/DL (74-106) #H Calcium Level 8.5 MG/DL (8.5-10.1) Total Bilirubin 0.7 MG/DL (0.2-1.0) Aspartate Amino Transf (AST/SGOT) 25 U/L (15-37) Alanine Aminotransferase (ALT/SGPT) 24 U/L (12-78) Alkaline Phosphatase 109 U/L (46-116) Troponin I 0.042 ng/mL (0.000-0.056) Pro-B-Type Natriuretic Peptide 7840 pg/mL (0-125) H Total Protein 7.7 G/DL (6.4-8.2) Albumin 3.2 G/DL (3.4-5.0) L Globulin 4.5 g/dL Albumin/Globulin Ratio 0.7 (1.0-2.7) L Arterial Blood pH 7.272 (7.350-7.450) Arterial Blood Partial Pressure CO2 70.2 mmHg (35.0-45.0) *H Arterial Blood Partial Pressure O2 70.3 mmHg (75.0-100.0) L Arterial Blood HCO3 31.7 mmol/L (22.0-26.0) H Arterial Blood Oxygen Saturation 93.6 % (92.0-98.0) Arterial Blood Base Excess 2.4 [place] Test Positive ABHISHEK BYRD May 27, 2017 16:02
[2017-05-27] MEDS ORDERED: NS 500ML ONE (16:20)
[2017-05-27] MEDS ORDERED: Nitroglycerin Subl 0.4mg tab SL PRN (18:30)
[2017-05-27] MEDS ORDERED: Promethazine/Codeine 5ml UD ORAL PRN (18:30)
[2017-05-27] MEDS ORDERED: Ketorolac 30mg Inj IV PRN (18:30)
[2017-05-27] MEDS ORDERED: Albuterol/Ipratropium 3ml neb HHN PRN (18:30)
[2017-05-27] MEDS: Piperacillin/Tazobactam 3.375 GM in NS 110 ML IVPB SCH (22:20)
[2017-05-28] VITALS (24 sets, daily range): BP systolic 132–165; BP diastolic 76–117
--- NOTE | 2017-05-28 02:45 | Consultation ---
DATE OF CONSULTATION: 05/27/2017 CARDIOLOGY CONSULTATION REFERRING PHYSICIAN: Hira Uribe M.D. REASON FOR REFERRAL: Heart failure and respiratory arrest. HISTORY OF PRESENT ILLNESS: This is a very unfortunate gentleman who I have seen back in June 2016. The patient's information is obtained from review of the patient's chart as he is on a mechanical ventilator, unable to provide any meaningful history. Apparently, he presented with complaints of coughing, congestion, and shortness of breath. Apparently, his primary care physician has recently changed his medications, developed increasing amount of cough, even had a sleep study, however, he has not been able to get oxygen at home and he is quite hypoxic. He came into the emergency room where he was noted to have room air saturation of 66% and felt to be secondary to COPD exacerbation. He did receive some breathing treatments, which he apparently initially responded. Also, given some diuretics for cardiomegaly and was admitted to the floor and he was visited by a nurse. The patient was not responding 01:24 High Leone's position. RT was called. RT initiated and Code Blue was called. The patient was intubated. Blood sugar was checked as well. The patient was subsequently transferred to the intensive care unit where he was intubated by the emergency room physician and unfortunately he is not able to provide anything. He did subsequently wake up. He was trying to grab out T-tube. Bilateral restraints were placed and reinforced and the patient is maintained on a mechanical ventilator. PAST MEDICAL HISTORY: Positive for history of high blood pressure, sleep apnea, acute on chronic systolic-diastolic heart failure, pulmonary hypertension, systemic hypertension, renal failure, chronic kidney disease, morbid obesity, hypertensive urgency, mitral regurgitation, medication noncompliance, and hypercapnia. SOCIAL HISTORY: Denies smoking or drinking. 02:47 here. He has remote history of drug back in the 1980s, apparently the patient has prior episode. ALLERGIES: He is not allergic to any medications. REVIEW OF SYSTEMS: Unable to obtain. PHYSICAL EXAMINATION: GENERAL: Shows to be middle-aged gentleman, on a mechanical ventilator, still very agitated, but he is not communicative or responsive. NECK: Supple. LUNGS: Decreased breath sounds noted bilaterally 03:06 ventilator delivered. CARDIAC: Regular rate and rhythm. ABDOMEN: Obese. Positive bowel sounds. Nontender. EXTREMITIES: There is edema of the lower extremities bilaterally all the way up to his thigh. NEUROLOGICAL: He is noncommunicative or following any commands. LABORATORY AND DIAGNOSTIC DATA: White count of 5.8, hemoglobin of 14.8, and platelet count of 312,000 with MCV of 77 and pH of 7.27, pCO2 of 70, pO2 of 70, and bicarbonate of 32 with 94% saturation. Sodium is 139, potassium 6.1, chloride of 100, bicarbonate of 36, BUN of 39, creatinine of 2.0, and glucose of 204. His creatinine has been anywhere between 1.5 to the present level of 2.0. Two sets of cardiac enzymes are negative. His proBNP was 7800. His urinalysis shows urine sodium 112. Chest x-ray preintubation shows cardiomegaly, mild pulmonary vascular congestion with fluid overload. His EKG showed sinus rhythm. There is Q-wave in lead III and aVF. Low-voltage QRS complexes are noted. Incomplete right bundle-branch block morphology is also noted. On direct comparison, unfortunately all the EKGs cannot be located. ASSESSMENT AND PLAN: 1. Respiratory failure. 2. Acute on chronic systolic heart failure. 3. Left ventricular systolic dysfunction. 4. Mitral regurgitation of kdvyciaa-ca-jlrapj degree. 5. Pulmonary hypertension. 6. Morbid obesity. 7. Systemic hypertension. 8. Renal failure and hyperkalemia. The patient has been admitted to the hospital. He is getting intravenous diuretics to which he is responding. His blood pressure did drop somewhat with the use of diuretics and he is on low doses of beta-blockers and his lisinopril is 20 mg, may need to be adjusted downwards. He is getting some steroids already per pulmonary recommendations. I will repeat the third set of cardiac enzymes for tomorrow. His creatinine to be monitored as is rising and so his potassium and that 06:37 should be discontinued. Mark Oreilly M.D. DR: Patito JOB#: [id number] CC:
[2017-05-28 04:25] LABS: HEMATOCRIT 46.2 % (42.0-52.0); HEMOGLOBIN 13.1 G/DL (14.2-18.0); MEAN CORPUSCULAR VOLUME 74 FL (80-99); PLATELET COUNT 199 K/UL (150-450); RED BLOOD COUNT 6.24 M/UL (4.70-6.10); RED CELL DISTRIBUTION WIDTH 18.2 % (11.6-14.8); WHITE BLOOD COUNT 8.2 K/UL (4.8-10.8)
[2017-05-28 04:54] LABS: ALANINE AMINOTRANSFERASE 21 U/L (12-78); ALBUMIN 2.6 G/DL (3.4-5.0); ALBUMIN/GLOBULIN RATIO 0.7 (1.0-2.7); ALKALINE PHOSPHATASE 81 U/L (46-116); ANION GAP 3 mmol/L (5-15); ASPARTATE AMINO TRANSFERASE 20 U/L (15-37); BLOOD UREA NITROGEN 36 mg/dL (7-18); CALCIUM 8.5 MG/DL (8.5-10.1); CARBON DIOXIDE 37 MMOL/L (21-32); CHLORIDE 102 MMOL/L (98-107); CREATININE 1.6 MG/DL (0.55-1.30); POTASSIUM 4.5 MMOL/L (3.5-5.1); SODIUM 142 MMOL/L (136-145)
[2017-05-28] MEDS: Solu-MEDROL 125mg Inj IV SCH (05:55)
[2017-05-28] MEDS: Piperacillin/Tazobactam 3.375 GM in NS 110 ML IVPB SCH ×3 (05:55→21:52)
[2017-05-28 06:15] LABS: PHOSPHORUS 3.4 MG/DL (2.5-4.9)
[2017-05-28] MEDS: Carvedilol 6.25mg Tab ORAL SCH ×2 (08:16→20:41)
[2017-05-28] MEDS: Theophylline ER 100mg ORAL SCH ×2 (08:16→20:41)
[2017-05-28] MEDS ORDERED: Pantoprazole Inj IV SCH (09:00)
--- NOTE | 2017-05-28 09:57 | Diagnostic Imaging Report ---
Indication: Status post intubation Technique: One view of the chest Comparison: 05/26/2017 Findings: Body habitus limits evaluation. Interval endotracheal intubation, endotracheal tube tip projecting approximately 6 cm above the . There is increasing pulmonary opacity, likely increasing pulmonary edema or infiltrate. The heart is enlarged. There is likely a small amount of pleural fluid bilaterally Impression: Satisfactory endotracheal intubation Worsening pulmonary edema versus infiltrates, over one day. Suspect small bilateral pleural effusions This agrees with the preliminary interpretation provided overnight by [facility] teleradiology service. This agrees with the preliminary interpretation provided by the emergency room physician
--- NOTE | 2017-05-28 10:52 | Pulmonolgy Critical Care Note ---
Critical Care - Asmt/Plan Problems: (1) Respiratory arrest (2) COPD exacerbation (3) HTN (hypertension) (4) CHF (congestive heart failure) (5) ATN (acute tubular necrosis) Assessment/Plan: cxr of 05/27 showed severe pulmonary edema, today's cxr showing almost resolution of the edema. pt is still on 100 fio2. Respiratory: monitor respiratory rate, adjust FIO2, CXR, other Cardiac: continue to monitor HR/BP Renal: F/U I&O, keep IV fluid, check electrolytes Infectious Disease: check cultures, continue antibiotics Gastrointestinal: continue feedings/current rate Endocrine: monitor blood sugar Hematologic: monitor H/H Neurologic: PRN Morphine Prophylaxis: Protonix, Heparin Notes Reviewed: portfolio manager Discussed with: nurses, consultants Critical Care - Objective Last 24 Hour Vital Signs Date Time Temp Pulse Resp B/P (MAP) Pulse Ox O2 Delivery O2 Flow Rate FiO2 05/28/17 10:00 77 16 156/86 93 100 05/28/17 09:00 79 16 151/85 92 100 05/28/17 08:16 77 165/88 05/28/17 08:00 100 05/28/17 08:00 100.0 99 16 165/88 92 100 05/28/17 08:00 84 05/28/17 07:29 81 16 100 05/28/17 07:00 99 17 151/86 91 100 05/28/17 06:00 99 22 164/96 93 100 05/28/17 05:50 82 16 100 05/28/17 05:00 74 16 153/82 93 100 05/28/17 04:00 78 05/28/17 04:00 100 05/28/17 04:00 97.8 78 16 136/81 94 100 05/28/17 03:52 83 16 100 05/28/17 03:00 76 16 144/85 93 100 05/28/17 02:00 81 16 145/83 93 100 05/28/17 01:11 85 16 100 05/28/17 01:00 73 16 146/80 93 100 05/28/17 00:00 74 05/28/17 00:00 97.4 74 16 132/76 93 100 05/28/17 00:00 80 05/27/17 23:07 79 16 100 05/27/17 23:00 75 16 133/79 92 100 05/27/17 22:00 78 16 159/82 95 100 05/27/17 21:27 74 16 100 05/27/17 21:00 80 16 137/86 91 80 05/27/17 21:00 80 159/82 05/27/17 20:00 80 05/27/17 20:00 97.6 77 16 128/82 95 80 05/27/17 20:00 77 05/27/17 19:30 80 16 100 05/27/17 19:00 85 20 119/73 91 80 05/27/17 18:00 82 20 108/67 91 80 05/27/17 17:00 86 18 102/67 91 80 05/27/17 16:58 80 16 80 05/27/17 16:00 97.8 83 19 117/73 94 Mechanical Ventilator 80 05/27/17 16:00 72 05/27/17 15:00 80 05/27/17 15:00 83 19 102/67 94 80 05/27/17 14:35 90 18 80 05/27/17 14:00 82 18 110/73 94 80 05/27/17 13:35 95 18 80 05/27/17 13:00 98.0 78 20 153/103 94 05/27/17 12:00 93 05/27/17 12:00 98.0 92 20 157/98 89 Nasal Cannula 4.0 Status: awake Condition: critical HEENT: atraumatic Neck: full ROM Heart: HR/BP stable, HR/BP unstable Abdomen: soft, non-tender, active bowel sounds Extremities: no C/C/E, edema Critical Care - Subjective ROS Limited/Unobtainable: No ICU Day: 2 Intubation Day: 2 FI02: 100 Vent Support Breath Rate: 16 Vent Support Mode: AC Vent Tidal Volume: 600 Sputum Amount: Scant PIP: 30 I&O: Intake and Output 05/27/17 05/28/17 19:00 07:00 Intake Total 230 ml 110.0 ml Output Total 550 ml 800 ml Balance -320 ml -690.0 ml Intake Oral 120 ml IV Total 110 ml 110.0 ml Output Urine Total 550 ml 800 ml CXR: less edema, ET in good position ET-Tube: 7.5 ET Position: 23 Labs: Laboratory Tests Test 05/27/17 13:55 05/27/17 14:20 05/28/17 04:00 05/28/17 07:55 White Blood Count 5.8 K/UL (4.8-10.8) 8.2 K/UL (4.8-10.8) Red Blood Count 7.15 M/UL (4.70-6.10) H 6.24 M/UL (4.70-6.10) H Hemoglobin 14.8 G/DL (14.2-18.0) 13.1 G/DL (14.2-18.0) L Hematocrit 54.7 % (42.0-52.0) H 46.2 % (42.0-52.0) Mean Corpuscular Volume 77 FL (80-99) L 74 FL (80-99) L Mean Corpuscular Hemoglobin 20.7 PG (27.0-31.0) L 21.0 PG (27.0-31.0) L Mean Corpuscular Hemoglobin Concent 27.0 G/DL (32.0-36.0) L 28.4 G/DL (32.0-36.0) L Red Cell Distribution Width 18.5 % (11.6-14.8) H 18.2 % (11.6-14.8) H Platelet Count 312 K/UL (150-450) 199 K/UL (150-450) Mean Platelet Volume 6.6 FL (6.5-10.1) 7.0 FL (6.5-10.1) Neutrophils (%) (Auto) % (45.0-75.0) % (45.0-75.0) Lymphocytes (%) (Auto) % (20.0-45.0) % (20.0-45.0) Monocytes (%) (Auto) % (1.0-10.0) % (1.0-10.0) Eosinophils (%) (Auto) % (0.0-3.0) % (0.0-3.0) Basophils (%) (Auto) % (0.0-2.0) % (0.0-2.0) Differential Total Cells Counted 100 100 Neutrophils % (Manual) 91 % (45-75) H 93 % (45-75) H Lymphocytes % (Manual) 6 % (20-45) L 4 % (20-45) L Monocytes % (Manual) 3 % (1-10) 3 % (1-10) Eosinophils % (Manual) 0 % (0-3) 0 % (0-3) Basophils % (Manual) 0 % (0-2) 0 % (0-2) Band Neutrophils 0 % (0-8) 0 % (0-8) Platelet Estimate Adequate Adequate Platelet Morphology Normal Normal Polychromasia 1+ Hypochromasia 1+ 2+ Microcytosis 1+ 2+ Prothrombin Time 13.6 SEC (9.30-11.50) H Prothromb Time International Ratio 1.3 (0.9-1.1) H Sodium Level 139 MMOL/L (136-145) 142 MMOL/L (136-145) Potassium Level 6.1 MMOL/L (3.5-5.1) *H 4.5 MMOL/L (3.5-5.1) Chloride Level 100 MMOL/L (98-107) 102 MMOL/L (98-107) Carbon Dioxide Level 36 MMOL/L (21-32) H 37 MMOL/L (21-32) H Anion Gap 3 mmol/L (5-15) L 3 mmol/L (5-15) L Blood Urea Nitrogen 39 mg/dL (7-18) H 36 mg/dL (7-18) H Creatinine 2.0 MG/DL (0.55-1.30) H 1.6 MG/DL (0.55-1.30) H Estimat Glomerular Filtration Rate 41.2 mL/min (>60) 53.3 mL/min (>60) Glucose Level 204 MG/DL (74-106) #H 88 MG/DL (74-106) # Calcium Level 8.5 MG/DL (8.5-10.1) 8.5 MG/DL (8.5-10.1) Total Bilirubin 0.7 MG/DL (0.2-1.0) 1.0 MG/DL (0.2-1.0) Aspartate Amino Transf (AST/SGOT) 25 U/L (15-37) 20 U/L (15-37) Alanine Aminotransferase (ALT/SGPT) 24 U/L (12-78) 21 U/L (12-78) Alkaline Phosphatase 109 U/L (46-116) 81 U/L (46-116) Troponin I 0.042 ng/mL (0.000-0.056) Pro-B-Type Natriuretic Peptide 7840 pg/mL (0-125) H 4183 pg/mL (0-125) H Total Protein 7.7 G/DL (6.4-8.2) 6.1 G/DL (6.4-8.2) L Albumin 3.2 G/DL (3.4-5.0) L 2.6 G/DL (3.4-5.0) L Globulin 4.5 g/dL 3.5 g/dL Albumin/Globulin Ratio 0.7 (1.0-2.7) L 0.7 (1.0-2.7) L Arterial Blood pH 7.272 (7.350-7.450) 7.380 (7.350-7.450) Arterial Blood Partial Pressure CO2 70.2 mmHg (35.0-45.0) *H 62.9 mmHg (35.0-45.0) *H Arterial Blood Partial Pressure O2 70.3 mmHg (75.0-100.0) L 65.7 mmHg (75.0-100.0) L Arterial Blood HCO3 31.7 mmol/L (22.0-26.0) H 36.8 mmol/L (22.0-26.0) H Arterial Blood Oxygen Saturation 93.6 % (92.0-98.0) 91.4 % (92.0-98.0) L Arterial Blood Base Excess 2.4 9.3 [place] Test Positive Positive Anisocytosis 2+ Phosphorus Level 3.4 MG/DL (2.5-4.9) Magnesium Level 1.9 MG/DL (1.8-2.4) KEITH CHONG May 28, 2017 10:52
--- NOTE | 2017-05-28 11:43 | Diagnostic Imaging Report ---
Indication: Dyspnea Technique: One view of the chest Comparison: 05/27/2017 Findings: Interim nasogastric intubation, nasogastric tube tip projecting beyond the edge of the image. There has been interim improvement in previously demonstrated bilateral parenchymal edema, although considerable interstitial and airspace disease persists. The left and hemidiaphragm remains obscured, pleural fluid likely Impression: Satisfactory nasogastric intubation Improved but persistent parenchymal consolidation or edema, over one day
[2017-05-28] MEDS ORDERED: Tubing IV Secondary IV ONE (15:47)
[2017-05-28] MEDS: LORazepam Inj 2mg/ml 1ml IV PRN (16:19)
--- NOTE | 2017-05-28 17:40 | Diagnostic Imaging Report ---
Indications: Altered mental status Technique: Spiral acquisitions obtained through the brain. Angled axial and coronal 5 x 5 mm slices were reconstructed. Total dose length product 1474.61 mGycm. CTDI vol(s) 70.38 mGy. Dose reduction achieved using automated exposure control Comparison: None. Findings: No acute intracranial hemorrhage or edema, mass effect, or midline shift. Normal for age ventricles and extra axial CSF spaces. There is some periventricular deep white matter low-attenuation, as well as a small deep white matter infarct in the high left parasagittal frontal lobe. There is sphenoid sinus disease. Intact calvarium. Mastoids are clear. 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
--- NOTE | 2017-05-28 17:40 | Consultation ---
Consult Note Consult Note asked to evaluate at the request of Dr Uribe for renal failure- Patient had a respiratory arrest yesterday and now in ICU intubated on mechanical ventilation Assessment/Plan currently in ICU intubated on mechanical Vent after respiratory arrest - ARF Cr 1.6 - 2.0 - 1.8 - CKD underlying - Fluid overloud - morbid obesity - COPD / CHF / sleep apnea ? - HTN UA Keep BP and BS in check Pulmonary support avoid Nephrotoxics slow diuresis 24 h urine protein GIOVANNI ARMANDO May 28, 2017 17:40
--- NOTE | 2017-05-28 18:11 | Cardiology Report ---
APPROVED REPORT EXAM: Two-dimensional and M-mode echocardiogram with Doppler and color Doppler. INDICATION TACHYCARDIA M-Mode DIMENSIONS IVSd2.1 (0.7-1.1cm)Left Atrium (MM)4.3 (1.6-4.0cm) LVDd5.2 (3.5-5.6cm)Aortic Root3.9 (2.0-3.7cm) PWd1.5 (0.7-1.1cm)Aortic Cusp Exc.2.3 (1.5-2.0cm) IVSs2.7 cm LVDs3.3 (2.5-4.0cm) PWs2.0 cm Normal left ventricular chamber size, systolic function and wall motion. Left ventricular ejection fraction estimated to 60-65 %. Moderate ventricular hypertrophy by 2-D. No evidence of pericardial effusion. Mild bi- atrial enlargements. . Right ventricular chamber sizes is within normal limits. Focal aortic valve sclerosis with adequate cusp excursion. Thickened mitral valve leaflets with normal excursion. Mitral annulus and aortic root calcification. Pulmonic valve not well visualized. Normal tricuspid valve structure. IVC dilated at size 2.4 without physiologic collapse . A color flow and spectral Doppler study was performed and revealed: No aortic insufficiency . Trace mitral regurgitation. Normal left ventricular diastolic function. Mild tricuspid regurgitation. Tricuspid systolic velocities suggests peak right ventricular systolic pressure of 59 mmHg ,consistent with moderate, pulmonary hypertension. No Pulmonic regurgitation present.
[2017-05-28 19:06] LABS: APPEARANCE,URINE CLEAR; BILIRUBIN, URINE NEGATIVE (NEGATIVE); COLOR,URINE PALE YELLOW; GLUCOSE, URINE (UA) NEGATIVE (NEGATIVE); KETONES,URINE NEGATIVE (NEGATIVE); LEUKOCYTE ESTERASE ,URINE 1+ (NEGATIVE); NITRITE,URINE NEGATIVE (NEGATIVE); PH,URINE 6 (4.5-8.0); PROTEIN,URINE 1+ (NEGATIVE); UROBILINOGEN,URINE NORMAL MG/DL (0.0-1.0)
--- NOTE | 2017-05-28 19:22 | Consultation ---
History of Present Illness General Date patient seen: May 28, 2017 Time patient seen: 19:02 Chief Complaint: Dyspnea/Respdistress Present Illness HPI 61 y/o M with hx of CHF, recent SAM sx (not yet on Bipap), HTN, pHTN, Mitral regurgitation, med non compliance, morbid obesity, CKD recent R tibial region injury presents to ED on 05/26 with cough, congestion and SOB. In the ED saturating 66% and initially improved to breathing treatments. Admitted to the floors with a working dx of COPD and CHF exacerbation. He underwent a code blue on 05/27 (only respiratory arrest; had pulses) and was intubated and transferred to the ICU Of note PCP has recently changed his meds and since then reported increasing cough Found to be on CAITLIN Denied CP, v/d, recent travel upon admission Allergies: Coded Allergies: No Known Allergies (Unverified , 07/23/16) Medication History Scheduled Aspirin* (Aspir 81*), 81 MG ORAL DAILY, (Reported) Carvedilol (Coreg), 6.25 MG ORAL EVERY 12 HOURS Furosemide* (Lasix*), 40 MG ORAL DAILY Furosemide* (Lasix*), 20 MG ORAL DAILY, (Reported) Lisinopril (Lisinopril*), 20 MG ORAL DAILY Losartan Potassium* (Losartan Potassium*), 100 MG ORAL DAILY, (Reported) Patient History Healthcare decision maker N Resuscitation status Full Code Advanced Directive on File No Patient History Narrative PMhx: as above SHx:Denies smoking or drinking. He has remote history of drug back in the 1980s , apparently the patient has prior episode. Fhx: non contributory Review of Systems ROS Narrative Unable to obtain Physical Exam Physical Exam Narrative GENERAL: Shows to be middle-aged gentleman, on a mechanical ventilator, still very agitated, but he is not communicative or responsive. NECK: Supple. LUNGS: Decreased breath sounds noted bilaterally CARDIAC: Regular rate and rhythm. ABDOMEN: Obese. Positive bowel sounds. Nontender. EXTREMITIES: There is edema of the lower extremities bilaterally all the way up to his thigh. NEUROLOGICAL: He is noncommunicative or following any commands. Last 24 Hour Vital Signs Date Time Temp Pulse Resp B/P (MAP) Pulse Ox O2 Delivery O2 Flow Rate FiO2 05/28/17 17:29 96 15 100 05/28/17 16:00 100 05/28/17 15:26 86 16 100 05/28/17 15:00 99.0 84 16 142/87 92 100 05/28/17 14:00 79 16 142/87 92 100 05/28/17 13:01 74 15 100 05/28/17 13:00 79 16 160/94 93 100 05/28/17 12:00 100 05/28/17 12:00 99.2 80 17 155/91 92 100 05/28/17 11:24 83 15 100 05/28/17 11:00 84 17 157/96 92 100 05/28/17 10:00 77 16 156/86 93 100 05/28/17 09:29 80 16 100 05/28/17 09:00 79 16 151/85 92 100 05/28/17 08:16 77 165/88 05/28/17 08:00 100 05/28/17 08:00 100.0 99 16 165/88 92 100 05/28/17 08:00 84 05/28/17 07:29 81 16 100 05/28/17 07:00 99 17 151/86 91 100 05/28/17 06:00 99 22 164/96 93 100 05/28/17 05:50 82 16 100 05/28/17 05:00 74 16 153/82 93 100 05/28/17 04:00 78 05/28/17 04:00 100 05/28/17 04:00 97.8 78 16 136/81 94 100 05/28/17 03:52 83 16 100 05/28/17 03:00 76 16 144/85 93 100 05/28/17 02:00 81 16 145/83 93 100 05/28/17 01:11 85 16 100 05/28/17 01:00 73 16 146/80 93 100 05/28/17 00:00 74 05/28/17 00:00 97.4 74 16 132/76 93 100 05/28/17 00:00 80 05/27/17 23:07 79 16 100 05/27/17 23:00 75 16 133/79 92 100 05/27/17 22:00 78 16 159/82 95 100 05/27/17 21:27 74 16 100 05/27/17 21:00 80 16 137/86 91 80 05/27/17 21:00 80 159/82 05/27/17 20:00 80 05/27/17 20:00 97.6 77 16 128/82 95 80 05/27/17 20:00 77 05/27/17 19:30 80 16 100 Intake and Output 05/27/17 05/28/17 19:00 07:00 Intake Total 230 ml 110.0 ml Output Total 550 ml 800 ml Balance -320 ml -690.0 ml Intake Oral 120 ml IV Total 110 ml 110.0 ml Output Urine Total 550 ml 800 ml Laboratory Tests Test 05/28/17 04:00 05/28/17 06:00 05/28/17 07:55 05/28/17 18:35 White Blood Count 8.2 K/UL (4.8-10.8) Red Blood Count 6.24 M/UL (4.70-6.10) H Hemoglobin 13.1 G/DL (14.2-18.0) L Hematocrit 46.2 % (42.0-52.0) Mean Corpuscular Volume 74 FL (80-99) L Mean Corpuscular Hemoglobin 21.0 PG (27.0-31.0) L Mean Corpuscular Hemoglobin Concent 28.4 G/DL (32.0-36.0) L Red Cell Distribution Width 18.2 % (11.6-14.8) H Platelet Count 199 K/UL (150-450) Mean Platelet Volume 7.0 FL (6.5-10.1) Neutrophils (%) (Auto) % (45.0-75.0) Lymphocytes (%) (Auto) % (20.0-45.0) Monocytes (%) (Auto) % (1.0-10.0) Eosinophils (%) (Auto) % (0.0-3.0) Basophils (%) (Auto) % (0.0-2.0) Differential Total Cells Counted 100 Neutrophils % (Manual) 93 % (45-75) H Lymphocytes % (Manual) 4 % (20-45) L Monocytes % (Manual) 3 % (1-10) Eosinophils % (Manual) 0 % (0-3) Basophils % (Manual) 0 % (0-2) Band Neutrophils 0 % (0-8) Platelet Estimate Adequate Platelet Morphology Normal Hypochromasia 2+ Anisocytosis 2+ Microcytosis 2+ Sodium Level 142 MMOL/L (136-145) Potassium Level 4.5 MMOL/L (3.5-5.1) Chloride Level 102 MMOL/L (98-107) Carbon Dioxide Level 37 MMOL/L (21-32) H Anion Gap 3 mmol/L (5-15) L Blood Urea Nitrogen 36 mg/dL (7-18) H Creatinine 1.6 MG/DL (0.55-1.30) H Estimat Glomerular Filtration Rate 53.3 mL/min (>60) Glucose Level 88 MG/DL (74-106) # Calcium Level 8.5 MG/DL (8.5-10.1) Phosphorus Level 3.4 MG/DL (2.5-4.9) Magnesium Level 1.9 MG/DL (1.8-2.4) Total Bilirubin 1.0 MG/DL (0.2-1.0) Aspartate Amino Transf (AST/SGOT) 20 U/L (15-37) Alanine Aminotransferase (ALT/SGPT) 21 U/L (12-78) Alkaline Phosphatase 81 U/L (46-116) Pro-B-Type Natriuretic Peptide 4183 pg/mL (0-125) H Total Protein 6.1 G/DL (6.4-8.2) L Albumin 2.6 G/DL (3.4-5.0) L Globulin 3.5 g/dL Albumin/Globulin Ratio 0.7 (1.0-2.7) L C-Reactive Protein, Quantitative 0.8 mg/dL (0.00-0.90) Arterial Blood pH 7.380 (7.350-7.450) Arterial Blood Partial Pressure CO2 62.9 mmHg (35.0-45.0) *H Arterial Blood Partial Pressure O2 65.7 mmHg (75.0-100.0) L Arterial Blood HCO3 36.8 mmol/L (22.0-26.0) H Arterial Blood Oxygen Saturation 91.4 % (92.0-98.0) L Arterial Blood Base Excess 9.3 [place] Test Positive Urine Color Pending Urine Appearance Pending Urine pH Pending Urine Specific [place] Pending Urine Protein Pending Urine Glucose (UA) Pending Urine Ketones Pending Urine Occult Blood Pending Urine Nitrite Pending Urine Bilirubin Pending Urine Urobilinogen Pending Urine Leukocyte Esterase Pending Urine RBC Pending Urine WBC Pending Urine Squamous Epithelial Cells Pending Urine Bacteria Pending Urine Random Sodium 124 MEQ/L (20-110) H Height (Feet): 5 Height (Inches): 7.00 Weight (Pounds): 304 Medications Current Medications Medications (Trade) Dose Ordered Sig/Judy Route PRN Reason Start Time Stop Time Status Last Admin Dose Admin Albuterol/ Ipratropium (Albuterol/ Ipratropium) 3 ml Q4H PRN HHN dyspnea 05/27/17 18:30 05/31/17 18:29 Carvedilol (Coreg) 6.25 mg EVERY 12 HOURS ORAL 05/27/17 21:00 06/25/17 20:59 05/28/17 08:16 Dextrose (Dextrose 50%) STAT PRN IV Hypoglycemia 05/27/17 18:30 06/26/17 18:29 Famotidine (Pepcid I.v.) 20 mg Q12HR IVP 05/28/17 21:00 06/27/17 20:59 Furosemide 100 mg/ Dextrose 100 ml @ 10 mls/hr Q10H IV 05/28/17 12:00 06/27/17 11:59 05/28/17 13:00 Lorazepam (Ativan 2mg/ml 1ml) 2 mg Q4H PRN IV For Anxiety 05/27/17 18:30 06/03/17 14:29 05/28/17 16:19 Morphine Sulfate (Morphine Sulfate) 4 mg Q4H PRN IVP PAIN 4-10 05/27/17 18:30 06/03/17 14:29 Nitroglycerin (Ntg) 0.4 mg Q5M X 3 DOSES PRN SL Prn Chest Pain 05/27/17 18:30 06/25/17 18:29 Ondansetron HCl (Zofran) 4 mg Q6H PRN IVP Nausea & Vomiting 05/27/17 18:30 06/25/17 18:29 Piperacillin Sod/ Tazobactam Sod 3.375 gm/Sodium Chloride 110 ml @ 27.5 mls/hr EVERY 8 HOURS IVPB 05/27/17 22:00 05/31/17 15:59 05/28/17 15:00 Temazepam (Restoril) 15 mg HSPRN PRN ORAL Insomnia 05/27/17 21:00 06/02/17 20:59 Theophylline (Frandy-Dur) 100 mg EVERY 12 HOURS ORAL 05/27/17 21:00 06/25/17 20:59 05/28/17 08:16 Assessment/Plan Assessment/Plan Abx: Zosyn 05/26- Assessment: Acute hypoxic/hypercapneic resp failure- suspect 2ry to COPD/CHF exacerbation; possible PNA- r/o Influenza -s/p intubation 05/27 -sp Cx p -CXR 05/28: Improved but persistent parenchymal consolidation or edema, over one day Low grade fever x1 -no leukocytosis CAITLIN on CKD, improving CHF recent SAM sx (not yet on Bipap) HTN pHTN Mitral regurgitation med non compliance morbid obesity recent R tibial region injury Plan: -Continue Zosyn #3 pending sputum culture and add Levaquin for atypical coverage and Tamiflu pending influenza test -monitor QTc -Legionella ag urine, Influenza ag -f/u cx -Monitor CBC/BMP, temperatures Thank you for this consultation. Will continue to follow along with you. -ETT care -aspiration precautions Discussed with Elma Mcintosh M.D. May 28, 2017 19:22
--- NOTE | 2017-05-28 20:23 | Cardiology Progress Note ---
Assessment/Plan Assessment/Plan 1. Respiratory failure. 2. Acute on chronic systolic heart failure. 3. Hs of l eft ventricular systolic dysfunction. 4. Mitral regurgitation of [id number] degree before now less 5. Pulmonary hypertension. 6. Morbid obesity. 7. Systemic hypertension. 8. Renal failure and hyperkalemia still required 100% oxygen echo nwo only tra MR! will need to review consider venous duplex v/q scanning ? diuresis as per dr gan if k i ok will considcer restarting of acei for bp Subjective ROS Limited/Unobtainable: Yes Subjective on the vent havign ngt placed by rn Objective Last 24 Hour Vital Signs Date Time Temp Pulse Resp B/P (MAP) Pulse Ox O2 Delivery O2 Flow Rate FiO2 05/28/17 19:24 80 16 100 05/28/17 19:00 75 16 139/80 95 Mechanical Ventilator 100 05/28/17 18:00 89 19 152/88 93 Mechanical Ventilator 100 05/28/17 17:29 96 15 100 05/28/17 17:00 85 16 137/117 91 Mechanical Ventilator 100 05/28/17 16:00 77 05/28/17 16:00 100 05/28/17 16:00 76 16 150/88 95 Mechanical Ventilator 100 05/28/17 15:26 86 16 100 05/28/17 15:00 99.0 84 16 142/87 92 100 05/28/17 14:00 79 16 142/87 92 100 05/28/17 13:01 74 15 100 05/28/17 13:00 79 16 160/94 93 100 05/28/17 12:00 100 05/28/17 12:00 99.2 80 17 155/91 92 100 05/28/17 12:00 82 05/28/17 11:24 83 15 100 05/28/17 11:00 84 17 157/96 92 100 05/28/17 10:00 77 16 156/86 93 100 05/28/17 09:29 80 16 100 05/28/17 09:00 79 16 151/85 92 100 05/28/17 08:16 77 165/88 05/28/17 08:00 100 05/28/17 08:00 100.0 99 16 165/88 92 100 05/28/17 08:00 84 05/28/17 07:29 81 16 100 05/28/17 07:00 99 17 151/86 91 100 05/28/17 06:00 99 22 164/96 93 100 05/28/17 05:50 82 16 100 05/28/17 05:00 74 16 153/82 93 100 05/28/17 04:00 78 05/28/17 04:00 100 05/28/17 04:00 97.8 78 16 136/81 94 100 05/28/17 03:52 83 16 100 05/28/17 03:00 76 16 144/85 93 100 05/28/17 02:00 81 16 145/83 93 100 05/28/17 01:11 85 16 100 05/28/17 01:00 73 16 146/80 93 100 05/28/17 00:00 74 05/28/17 00:00 97.4 74 16 132/76 93 100 05/28/17 00:00 80 05/27/17 23:07 79 16 100 05/27/17 23:00 75 16 133/79 92 100 05/27/17 22:00 78 16 159/82 95 100 05/27/17 21:27 74 16 100 05/27/17 21:00 80 16 137/86 91 80 05/27/17 21:00 80 159/82 General Appearance: obese, on vent Neck: no JVD Cardiovascular: normal rate Respiratory/Chest: crackles/rales Abdomen: normal bowel sounds, non tender, soft Extremities: moderate edema Intake and Output 05/27/17 05/28/17 19:00 07:00 Intake Total 230 ml 110.0 ml Output Total 550 ml 800 ml Balance -320 ml -690.0 ml Intake Oral 120 ml IV Total 110 ml 110.0 ml Output Urine Total 550 ml 800 ml Laboratory Tests Test 05/28/17 04:00 05/28/17 06:00 05/28/17 07:55 05/28/17 18:35 White Blood Count 8.2 K/UL (4.8-10.8) Red Blood Count 6.24 M/UL (4.70-6.10) H Hemoglobin 13.1 G/DL (14.2-18.0) L Hematocrit 46.2 % (42.0-52.0) Mean Corpuscular Volume 74 FL (80-99) L Mean Corpuscular Hemoglobin 21.0 PG (27.0-31.0) L Mean Corpuscular Hemoglobin Concent 28.4 G/DL (32.0-36.0) L Red Cell Distribution Width 18.2 % (11.6-14.8) H Platelet Count 199 K/UL (150-450) Mean Platelet Volume 7.0 FL (6.5-10.1) Neutrophils (%) (Auto) % (45.0-75.0) Lymphocytes (%) (Auto) % (20.0-45.0) Monocytes (%) (Auto) % (1.0-10.0) Eosinophils (%) (Auto) % (0.0-3.0) Basophils (%) (Auto) % (0.0-2.0) Differential Total Cells Counted 100 Neutrophils % (Manual) 93 % (45-75) H Lymphocytes % (Manual) 4 % (20-45) L Monocytes % (Manual) 3 % (1-10) Eosinophils % (Manual) 0 % (0-3) Basophils % (Manual) 0 % (0-2) Band Neutrophils 0 % (0-8) Platelet Estimate Adequate Platelet Morphology Normal Hypochromasia 2+ Anisocytosis 2+ Microcytosis 2+ Sodium Level 142 MMOL/L (136-145) Potassium Level 4.5 MMOL/L (3.5-5.1) Chloride Level 102 MMOL/L (98-107) Carbon Dioxide Level 37 MMOL/L (21-32) H Anion Gap 3 mmol/L (5-15) L Blood Urea Nitrogen 36 mg/dL (7-18) H Creatinine 1.6 MG/DL (0.55-1.30) H Estimat Glomerular Filtration Rate 53.3 mL/min (>60) Glucose Level 88 MG/DL (74-106) # Calcium Level 8.5 MG/DL (8.5-10.1) Phosphorus Level 3.4 MG/DL (2.5-4.9) Magnesium Level 1.9 MG/DL (1.8-2.4) Total Bilirubin 1.0 MG/DL (0.2-1.0) Aspartate Amino Transf (AST/SGOT) 20 U/L (15-37) Alanine Aminotransferase (ALT/SGPT) 21 U/L (12-78) Alkaline Phosphatase 81 U/L (46-116) Pro-B-Type Natriuretic Peptide 4183 pg/mL (0-125) H Total Protein 6.1 G/DL (6.4-8.2) L Albumin 2.6 G/DL (3.4-5.0) L Globulin 3.5 g/dL Albumin/Globulin Ratio 0.7 (1.0-2.7) L C-Reactive Protein, Quantitative 0.8 mg/dL (0.00-0.90) Arterial Blood pH 7.380 (7.350-7.450) Arterial Blood Partial Pressure CO2 62.9 mmHg (35.0-45.0) *H Arterial Blood Partial Pressure O2 65.7 mmHg (75.0-100.0) L Arterial Blood HCO3 36.8 mmol/L (22.0-26.0) H Arterial Blood Oxygen Saturation 91.4 % (92.0-98.0) L Arterial Blood Base Excess 9.3 [place] Test Positive Urine Color Pale yellow Urine Appearance Clear Urine pH 6 (4.5-8.0) Urine Specific [place] 1.010 (1.005-1.035) Urine Protein 1+ (NEGATIVE) H Urine Glucose (UA) Negative (NEGATIVE) Urine Ketones Negative (NEGATIVE) Urine Occult Blood 2+ (NEGATIVE) H Urine Nitrite Negative (NEGATIVE) Urine Bilirubin Negative (NEGATIVE) Urine Urobilinogen Normal MG/DL (0.0-1.0) Urine Leukocyte Esterase 1+ (NEGATIVE) H Urine RBC 5-10 /HPF (0 - 0) H Urine WBC 2-4 /HPF (0 - 0) Urine Squamous Epithelial Cells Occasional /LPF Urine Bacteria None /HPF (NONE) Urine Random Sodium 124 MEQ/L (20-110) H Urine Legionella Antigen Pending ABHISHEK BYRD May 28, 2017 20:23
[2017-05-28] MEDS: Oseltamivir 75mg cap ORAL SCH (20:41)
[2017-05-28] MEDS ORDERED: Levofloxacin 500mg tab ONE (20:44)
[2017-05-29] VITALS (24 sets, daily range): BP systolic 103–175; BP diastolic 70–100
[2017-05-29 04:43] LABS: BASOPHILS % (AUTO) 0.3 % (0.0-2.0); HEMATOCRIT 49.3 % (42.0-52.0); HEMOGLOBIN 14.3 G/DL (14.2-18.0); LYMPHOCYTES % (AUTO) 5.3 % (20.0-45.0); MEAN CORPUSCULAR VOLUME 73 FL (80-99); MONOCYTES % (AUTO) 12.4 % (1.0-10.0); NEUTROPHILS % (AUTO) 81.9 % (45.0-75.0); PLATELET COUNT 192 K/UL (150-450); RED BLOOD COUNT 6.73 M/UL (4.70-6.10); WHITE BLOOD COUNT 8.9 K/UL (4.8-10.8)
[2017-05-29 05:20] LABS: CREATINE KINASE 110 U/L (26-308); GAMMA GLUTAMYL TRANSPEPTIDASE 204 U/L (5-85)
[2017-05-29 05:27] LABS: ALANINE AMINOTRANSFERASE 20 U/L (12-78); ALBUMIN 2.8 G/DL (3.4-5.0); ALBUMIN/GLOBULIN RATIO 0.7 (1.0-2.7); ALKALINE PHOSPHATASE 80 U/L (46-116); ANION GAP 5 mmol/L (5-15); ASPARTATE AMINO TRANSFERASE 25 U/L (15-37); BILIRUBIN,TOTAL 1.3 MG/DL (0.2-1.0); BLOOD UREA NITROGEN 31 mg/dL (7-18); CALCIUM 8.8 MG/DL (8.5-10.1); CARBON DIOXIDE 39 MMOL/L (21-32); CHLORIDE 99 MMOL/L (98-107); CREATININE 1.6 MG/DL (0.55-1.30); PHOSPHORUS 2.9 MG/DL (2.5-4.9); POTASSIUM 3.8 MMOL/L (3.5-5.1); SODIUM 143 MMOL/L (136-145)
[2017-05-29 05:40] LABS: BILIRUBIN,DIRECT 0.4 MG/DL (0.0-0.3)
[2017-05-29] MEDS: Piperacillin/Tazobactam 3.375 GM in NS 110 ML IVPB SCH ×3 (05:51→22:02)
--- NOTE | 2017-05-29 09:20 | Pulmonolgy Critical Care Note ---
Critical Care - Asmt/Plan Problems: (1) Respiratory arrest (2) COPD exacerbation (3) HTN (hypertension) (4) CHF (congestive heart failure) (5) ATN (acute tubular necrosis) Assessment/Plan: cxr of 05/27 showed severe pulmonary edema, today's cxr showing almost resolution of the edema. pt is still on 100 fio2. Pt needs persistently 100% , will need to do CTA to rule out PE. can't get V/q because of the intubation and abnormal exr. 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 store manager - Objective Last 24 Hour Vital Signs Date Time Temp Pulse Resp B/P (MAP) Pulse Ox O2 Delivery O2 Flow Rate FiO2 05/29/17 09:00 100 05/29/17 07:29 72 16 100 05/29/17 07:00 77 16 175/100 91 Mechanical Ventilator 100 05/29/17 06:00 76 16 166/89 94 Mechanical Ventilator 100 05/29/17 05:29 92 16 100 05/29/17 05:00 84 19 164/100 93 Mechanical Ventilator 100 05/29/17 04:00 98.3 90 24 161/98 93 Mechanical Ventilator 100 05/29/17 04:00 100 05/29/17 04:00 90 05/29/17 03:20 69 16 100 05/29/17 03:00 69 16 169/85 92 Mechanical Ventilator 100 05/29/17 02:00 70 16 159/89 93 Mechanical Ventilator 100 05/29/17 01:28 73 16 100 05/29/17 01:00 69 16 159/87 93 Mechanical Ventilator 100 05/29/17 00:00 100 05/29/17 00:00 72 05/29/17 00:00 98.7 72 16 156/90 92 Mechanical Ventilator 100 05/28/17 23:24 68 16 100 05/28/17 23:00 68 16 154/87 93 Mechanical Ventilator 100 05/28/17 22:00 73 16 152/84 93 Mechanical Ventilator 100 05/28/17 21:17 69 16 100 05/28/17 21:00 73 16 154/90 94 Mechanical Ventilator 100 05/28/17 20:41 78 147/86 05/28/17 20:00 78 05/28/17 20:00 78 17 147/86 93 Mechanical Ventilator 100 05/28/17 20:00 100 05/28/17 19:24 80 16 100 05/28/17 19:00 75 16 139/80 95 Mechanical Ventilator 100 05/28/17 18:00 89 19 152/88 93 Mechanical Ventilator 100 05/28/17 17:29 96 15 100 05/28/17 17:00 85 16 137/117 91 Mechanical Ventilator 100 05/28/17 16:00 77 05/28/17 16:00 100 05/28/17 16:00 76 16 150/88 95 Mechanical Ventilator 100 05/28/17 15:26 86 16 100 05/28/17 15:00 99.0 84 16 142/87 92 100 05/28/17 14:00 79 16 142/87 92 100 05/28/17 13:01 74 15 100 05/28/17 13:00 79 16 160/94 93 100 05/28/17 12:00 100 05/28/17 12:00 99.2 80 17 155/91 92 100 05/28/17 12:00 82 05/28/17 11:24 83 15 100 05/28/17 11:00 84 17 157/96 92 100 05/28/17 10:00 77 16 156/86 93 100 05/28/17 09:29 80 16 100 Status: awake Condition: critical HEENT: atraumatic Neck: full ROM Lungs: chest wall tender Heart: HR/BP stable Abdomen: soft, active bowel sounds Extremities: no C/C/E, edema Critical Care - Subjective ROS Limited/Unobtainable: Yes ICU Day: 2 FI02: 100 Vent Support Breath Rate: 16 Vent Support Mode: AC Vent Tidal Volume: 600 Sputum Amount: Small PIP: 28 Tube Feeding Amount: 30 I&O: Intake and Output 05/28/17 05/29/17 19:00 07:00 Intake Total 240.0 ml 655.0 ml Output Total 2255 ml 2040 ml Balance -2015.0 ml -1385.0 ml Free Water 50 ml IV Total 170.0 ml 285.0 ml Tube Feeding 20 ml 320 ml Other 50 ml Output Urine Total 2255 ml 2040 ml CXR: Et in good position RLL infiltrate ET-Tube: 7.5 ET Position: 23 Labs: Laboratory Tests Test 05/28/17 18:35 05/29/17 03:34 05/29/17 04:00 05/29/17 08:14 Urine Color Pale yellow Urine Appearance Clear Urine pH 6 (4.5-8.0) Urine Specific [place] 1.010 (1.005-1.035) Urine Protein 1+ (NEGATIVE) H Urine Glucose (UA) Negative (NEGATIVE) Urine Ketones Negative (NEGATIVE) Urine Occult Blood 2+ (NEGATIVE) H Urine Nitrite Negative (NEGATIVE) Urine Bilirubin Negative (NEGATIVE) Urine Urobilinogen Normal MG/DL (0.0-1.0) Urine Leukocyte Esterase 1+ (NEGATIVE) H Urine RBC 5-10 /HPF (0 - 0) H Urine WBC 2-4 /HPF (0 - 0) Urine Squamous Epithelial Cells Occasional /LPF Urine Bacteria None /HPF (NONE) Urine Random Sodium 124 MEQ/L (20-110) H Urine Legionella Antigen Pending White Blood Count 8.9 K/UL (4.8-10.8) Red Blood Count 6.73 M/UL (4.70-6.10) H Hemoglobin 14.3 G/DL (14.2-18.0) Hematocrit 49.3 % (42.0-52.0) Mean Corpuscular Volume 73 FL (80-99) L Mean Corpuscular Hemoglobin 21.2 PG (27.0-31.0) L Mean Corpuscular Hemoglobin Concent 28.9 G/DL (32.0-36.0) L Red Cell Distribution Width 18.0 % (11.6-14.8) H Platelet Count 192 K/UL (150-450) Mean Platelet Volume 6.2 FL (6.5-10.1) L Neutrophils (%) (Auto) 81.9 % (45.0-75.0) H Lymphocytes (%) (Auto) 5.3 % (20.0-45.0) L Monocytes (%) (Auto) 12.4 % (1.0-10.0) H Eosinophils (%) (Auto) 0.0 % (0.0-3.0) Basophils (%) (Auto) 0.3 % (0.0-2.0) Sodium Level 143 MMOL/L (136-145) Potassium Level 3.8 MMOL/L (3.5-5.1) Chloride Level 99 MMOL/L (98-107) Carbon Dioxide Level 39 MMOL/L (21-32) H Anion Gap 5 mmol/L (5-15) Blood Urea Nitrogen 31 mg/dL (7-18) H Creatinine 1.6 MG/DL (0.55-1.30) H Estimat Glomerular Filtration Rate 53.3 mL/min (>60) Glucose Level 69 MG/DL (74-106) L Uric Acid 7.3 MG/DL (2.6-7.2) H Calcium Level 8.8 MG/DL (8.5-10.1) Phosphorus Level 2.9 MG/DL (2.5-4.9) Magnesium Level 1.9 MG/DL (1.8-2.4) Total Bilirubin 1.3 MG/DL (0.2-1.0) H Direct Bilirubin 0.4 MG/DL (0.0-0.3) H Gamma Glutamyl Transpeptidase 204 U/L (5-85) H Aspartate Amino Transf (AST/SGOT) 25 U/L (15-37) Alanine Aminotransferase (ALT/SGPT) 20 U/L (12-78) Alkaline Phosphatase 80 U/L (46-116) Total Creatine Kinase 110 U/L (26-308) Troponin I 0.059 ng/mL (0.000-0.056) Pro-B-Type Natriuretic Peptide 2420 pg/mL (0-125) H Total Protein 6.7 G/DL (6.4-8.2) Albumin 2.8 G/DL (3.4-5.0) L Globulin 3.9 g/dL Albumin/Globulin Ratio 0.7 (1.0-2.7) L Thyroid Stimulating Hormone (TSH) 2.120 uiU/mL (0.358-3.740) Urine Eosinophils None seen None seen KEITH CHONG May 29, 2017 09:20
[2017-05-29] MEDS: Carvedilol 6.25mg Tab ORAL SCH ×2 (09:31→20:57)
[2017-05-29] MEDS: Theophylline ER 100mg ORAL SCH ×2 (09:31→20:57)
--- NOTE | 2017-05-29 09:31 | Infectious Diseases Prog Note ---
Assessment/Plan Assessment/Plan Assessment: Acute hypoxic/hypercapneic resp failure- suspect 2ry to COPD/CHF exacerbation; possible PNA- r/o Influenza -s/p intubation 05/27 -sp Cx p -CXR 05/28: Improved but persistent parenchymal consolidation or edema, over one day Low grade fever x1 -no leukocytosis CAITLIN on CKD, improving CHF recent SAM sx (not yet on Bipap) HTN pHTN Mitral regurgitation med non compliance morbid obesity recent R tibial region injury Plan: -Continue Zosyn #4 pending sputum culture and Levaquin #2 for atypical coverage and Tamiflu #2 pending influenza test -monitor QTc -add IV Vancomycin for MRSA coverage pending sp cx and in view of persistently high O2 requirements -CTA chest to be done to r/o PE -f/u Legionella ag urine, Influenza ag -f/u cx -Monitor CBC/BMP, temperatures -ETT care -aspiration precautions Thank you for this consultation. Will continue to follow along with you. Discussed with RN Subjective Allergies: Coded Allergies: No Known Allergies (Unverified , 07/23/16) Subjective afebrile in 24hrs remains on Fio2 100% no leukocytosis CXR improved edema Objective Vital Signs Last 24 Hour Vital Signs Date Time Temp Pulse Resp B/P (MAP) Pulse Ox O2 Delivery O2 Flow Rate FiO2 05/29/17 09:00 100 05/29/17 07:29 72 16 100 05/29/17 07:00 77 16 175/100 91 Mechanical Ventilator 100 05/29/17 06:00 76 16 166/89 94 Mechanical Ventilator 100 05/29/17 05:29 92 16 100 05/29/17 05:00 84 19 164/100 93 Mechanical Ventilator 100 05/29/17 04:00 98.3 90 24 161/98 93 Mechanical Ventilator 100 05/29/17 04:00 100 05/29/17 04:00 90 05/29/17 03:20 69 16 100 05/29/17 03:00 69 16 169/85 92 Mechanical Ventilator 100 05/29/17 02:00 70 16 159/89 93 Mechanical Ventilator 100 05/29/17 01:28 73 16 100 05/29/17 01:00 69 16 159/87 93 Mechanical Ventilator 100 05/29/17 00:00 100 05/29/17 00:00 72 05/29/17 00:00 98.7 72 16 156/90 92 Mechanical Ventilator 100 05/28/17 23:24 68 16 100 05/28/17 23:00 68 16 154/87 93 Mechanical Ventilator 100 05/28/17 22:00 73 16 152/84 93 Mechanical Ventilator 100 05/28/17 21:17 69 16 100 05/28/17 21:00 73 16 154/90 94 Mechanical Ventilator 100 05/28/17 20:41 78 147/86 05/28/17 20:00 78 05/28/17 20:00 78 17 147/86 93 Mechanical Ventilator 100 05/28/17 20:00 100 05/28/17 19:24 80 16 100 05/28/17 19:00 75 16 139/80 95 Mechanical Ventilator 100 05/28/17 18:00 89 19 152/88 93 Mechanical Ventilator 100 05/28/17 17:29 96 15 100 05/28/17 17:00 85 16 137/117 91 Mechanical Ventilator 100 05/28/17 16:00 77 05/28/17 16:00 100 05/28/17 16:00 76 16 150/88 95 Mechanical Ventilator 100 05/28/17 15:26 86 16 100 05/28/17 15:00 99.0 84 16 142/87 92 100 05/28/17 14:00 79 16 142/87 92 100 05/28/17 13:01 74 15 100 05/28/17 13:00 79 16 160/94 93 100 05/28/17 12:00 100 05/28/17 12:00 99.2 80 17 155/91 92 100 05/28/17 12:00 82 05/28/17 11:24 83 15 100 05/28/17 11:00 84 17 157/96 92 100 05/28/17 10:00 77 16 156/86 93 100 Height (Feet): 5 Height (Inches): 7.00 Weight (Pounds): 304 Objective GENERAL: Shows to be middle-aged gentleman, on a mechanical ventilator, still very agitated, but he is not communicative or responsive. NECK: Supple. LUNGS: Decreased breath sounds noted bilaterally CARDIAC: Regular rate and rhythm. ABDOMEN: Obese. Positive bowel sounds. Nontender. EXTREMITIES: There is edema of the lower extremities bilaterally all the way up to his thigh. NEUROLOGICAL: He is noncommunicative or following any commands. Laboratory Tests Test 05/28/17 18:35 05/29/17 03:34 05/29/17 04:00 05/29/17 08:14 Urine Color Pale yellow Urine Appearance Clear Urine pH 6 (4.5-8.0) Urine Specific [place] 1.010 (1.005-1.035) Urine Protein 1+ (NEGATIVE) H Urine Glucose (UA) Negative (NEGATIVE) Urine Ketones Negative (NEGATIVE) Urine Occult Blood 2+ (NEGATIVE) H Urine Nitrite Negative (NEGATIVE) Urine Bilirubin Negative (NEGATIVE) Urine Urobilinogen Normal MG/DL (0.0-1.0) Urine Leukocyte Esterase 1+ (NEGATIVE) H Urine RBC 5-10 /HPF (0 - 0) H Urine WBC 2-4 /HPF (0 - 0) Urine Squamous Epithelial Cells Occasional /LPF Urine Bacteria None /HPF (NONE) Urine Random Sodium 124 MEQ/L (20-110) H Urine Legionella Antigen Pending White Blood Count 8.9 K/UL (4.8-10.8) Red Blood Count 6.73 M/UL (4.70-6.10) H Hemoglobin 14.3 G/DL (14.2-18.0) Hematocrit 49.3 % (42.0-52.0) Mean Corpuscular Volume 73 FL (80-99) L Mean Corpuscular Hemoglobin 21.2 PG (27.0-31.0) L Mean Corpuscular Hemoglobin Concent 28.9 G/DL (32.0-36.0) L Red Cell Distribution Width 18.0 % (11.6-14.8) H Platelet Count 192 K/UL (150-450) Mean Platelet Volume 6.2 FL (6.5-10.1) L Neutrophils (%) (Auto) 81.9 % (45.0-75.0) H Lymphocytes (%) (Auto) 5.3 % (20.0-45.0) L Monocytes (%) (Auto) 12.4 % (1.0-10.0) H Eosinophils (%) (Auto) 0.0 % (0.0-3.0) Basophils (%) (Auto) 0.3 % (0.0-2.0) Sodium Level 143 MMOL/L (136-145) Potassium Level 3.8 MMOL/L (3.5-5.1) Chloride Level 99 MMOL/L (98-107) Carbon Dioxide Level 39 MMOL/L (21-32) H Anion Gap 5 mmol/L (5-15) Blood Urea Nitrogen 31 mg/dL (7-18) H Creatinine 1.6 MG/DL (0.55-1.30) H Estimat Glomerular Filtration Rate 53.3 mL/min (>60) Glucose Level 69 MG/DL (74-106) L Uric Acid 7.3 MG/DL (2.6-7.2) H Calcium Level 8.8 MG/DL (8.5-10.1) Phosphorus Level 2.9 MG/DL (2.5-4.9) Magnesium Level 1.9 MG/DL (1.8-2.4) Total Bilirubin 1.3 MG/DL (0.2-1.0) H Direct Bilirubin 0.4 MG/DL (0.0-0.3) H Gamma Glutamyl Transpeptidase 204 U/L (5-85) H Aspartate Amino Transf (AST/SGOT) 25 U/L (15-37) Alanine Aminotransferase (ALT/SGPT) 20 U/L (12-78) Alkaline Phosphatase 80 U/L (46-116) Total Creatine Kinase 110 U/L (26-308) Troponin I 0.059 ng/mL (0.000-0.056) Pro-B-Type Natriuretic Peptide 2420 pg/mL (0-125) H Total Protein 6.7 G/DL (6.4-8.2) Albumin 2.8 G/DL (3.4-5.0) L Globulin 3.9 g/dL Albumin/Globulin Ratio 0.7 (1.0-2.7) L Thyroid Stimulating Hormone (TSH) 2.120 uiU/mL (0.358-3.740) Urine Eosinophils None seen None seen Current Medications Medications (Trade) Dose Ordered Sig/Judy Route PRN Reason Start Time Stop Time Status Last Admin Dose Admin Albuterol/ Ipratropium (Albuterol/ Ipratropium) 3 ml Q4H PRN HHN dyspnea 05/27/17 18:30 05/31/17 18:29 Carvedilol (Coreg) 6.25 mg EVERY 12 HOURS ORAL 05/27/17 21:00 06/25/17 20:59 05/28/17 20:41 Dextrose (Dextrose 50%) STAT PRN IV Hypoglycemia 05/27/17 18:30 06/26/17 18:29 Famotidine (Pepcid I.v.) 20 mg Q12HR IVP 05/28/17 21:00 06/27/17 20:59 05/28/17 20:40 Furosemide 100 mg/ Dextrose 100 ml @ 10 mls/hr Q10H IV 05/28/17 12:00 06/27/17 11:59 05/28/17 21:52 Levofloxacin (Levaquin) 750 mg QHS ORAL 05/28/17 21:00 06/04/17 20:59 05/28/17 20:50 Lorazepam (Ativan 2mg/ml 1ml) 2 mg Q4H PRN IV For Anxiety 05/27/17 18:30 06/03/17 14:29 05/28/17 16:19 Morphine Sulfate (Morphine Sulfate) 4 mg Q4H PRN IVP PAIN 4-10 05/27/17 18:30 06/03/17 14:29 Nitroglycerin (Ntg) 0.4 mg Q5M X 3 DOSES PRN SL Prn Chest Pain 05/27/17 18:30 06/25/17 18:29 Ondansetron HCl (Zofran) 4 mg Q6H PRN IVP Nausea & Vomiting 05/27/17 18:30 06/25/17 18:29 Oseltamivir Phosphate (Tamiflu) 75 mg TWICE A DAY ORAL 05/28/17 21:00 06/02/17 20:59 05/28/17 20:41 Piperacillin Sod/ Tazobactam Sod 3.375 gm/Sodium Chloride 110 ml @ 27.5 mls/hr EVERY 8 HOURS IVPB 05/27/17 22:00 05/31/17 15:59 05/29/17 05:51 Temazepam (Restoril) 15 mg HSPRN PRN ORAL Insomnia 05/27/17 21:00 06/02/17 20:59 Theophylline (Frandy-Dur) 100 mg EVERY 12 HOURS ORAL 05/27/17 21:00 06/25/17 20:59 05/28/17 20:41 Elma Paris M.D. May 29, 2017 09:31
[2017-05-29] MEDS: Oseltamivir 75mg cap ORAL SCH ×2 (09:39→18:35)
[2017-05-29] MEDS ORDERED: Vancomycin 1.5 GM/D5W 250ML IVPB SCH (10:00)
--- NOTE | 2017-05-29 10:04 | Diagnostic Imaging Report ---
Indication: Dyspnea Technique: One view of the chest Comparison: 05/28/2017 Findings: Body habitus limits evaluation. Stable cardiomegaly. Left perihilar congestion, left basilar opacity, right basilar hazy opacity are all unchanged. Stable satisfactory positions of endotracheal and nasogastric tubes Impression: Unchanged, over one day, findings as above.
[2017-05-29] MEDS: Vancomycin 1.5 GM/D5W 250ML IVPB SCH (12:02)
[2017-05-29] MEDS ORDERED: Tubing IV Secondary IV ONE (15:00)
--- NOTE | 2017-05-29 15:12 | Diagnostic Imaging Report ---
ndication: Chest pain, shortness of breath, respiratory arrest, COPD exacerbation Technique: IV administration nonionic contrast. Spiral acquisitions obtained from the lung bases to the lung apices. Multiplanar and 3-D reconstructions were generated. Total dose length product 1328.31 mGycm. CTDIvol(s) 48.91 mGy. Dose reduction achieved using automated exposure control Comparison: none Findings: Opacification of the pulmonary arteries is adequate. No intraluminal filling defects or other findings to suggest acute pulmonary embolus demonstrated. The main pulmonary artery is dilated, measuring 4 cm diameter, the right pulmonary artery is dilated measuring 3.5 cm in diameter, and the left main pulmonary artery is dilated, measuring 3 cm in diameter. There is four-chamber cardiomegaly. No isolated right ventricular dilatation demonstrated no evidence of thoracic aortic aneurysm or dissection. Classic branching anatomy of the great neck vessels. There is a moderate-sized right-sided pleural effusion and a small left pleural effusion. There is atelectasis and consolidation of the entire right lower lobe. Minimal atelectasis of the posterior right upper lobe is demonstrated. There is complete atelectasis and consolidation of the left lower lobe. Both upper lobes and right middle lobe demonstrate mild interstitial congestion and diffuse groundglass opacity. There is an endotracheal tube in place, tip in good position terminating 4.5 cm above the . There is a nasogastric tube in place. Numerous prominent but not frankly enlarged mediastinal lymph nodes are demonstrated. There is some posterior lateral pericardial thickening versus fluid, minimal. Included thyroid is unremarkable. No axillary or chest wall mass or adenopathy. The bones are remarkable only for degenerative spondylosis changes. The included upper abdominal anatomy is unremarkable Impression: Negative for acute pulmonary embolus or other acute thoracic vascular pathology Pulmonary arterial dilatation, likely indicating chronic pulmonary arterial hypertension Moderate-sized right and small left pleural effusions. Complete atelectasis and consolidation of both lower lobes Mild interstitial congestion and hazy groundglass opacity of the aerated portions of the lungs, likely reflecting pulmonary edema Endotracheal and nasogastric tubes pericardial thickening versus fluid, minimal Degenerative spondylosis The CT scanner at [facility] is accredited by the [employer] and the scans are performed using protocols designed to limit radiation exposure to as low as reasonably achievable to attain images of sufficient resolution adequate for diagnostic evaluation.
--- NOTE | 2017-05-29 16:17 | Nephrology Progress Note ---
Assessment/Plan Problem List: (1) Respiratory arrest (2) ATN (acute tubular necrosis) (3) HTN (hypertension) (4) ACS (acute coronary syndrome) Assessment - ARF Cr 1.6 - 2.0 - 1.8 - CKD underlying - Fluid overloud - morbid obesity - COPD / CHF / sleep apnea ? - HTN troponin leak Plan UA Keep BP and BS in check Pulmonary support avoid Nephrotoxics slow diuresis 24 h urine protein Subjective ROS Limited/Unobtainable: Yes Objective Objective Last 24 Hour Vital Signs Date Time Temp Pulse Resp B/P (MAP) Pulse Ox O2 Delivery O2 Flow Rate FiO2 05/29/17 15:09 77 16 100 05/29/17 14:00 81 17 139/75 95 Mechanical Ventilator 100 05/29/17 13:20 92 16 100 05/29/17 13:00 83 18 128/88 93 Mechanical Ventilator 100 05/29/17 12:00 100 05/29/17 12:00 76 16 135/93 90 Mechanical Ventilator 100 05/29/17 12:00 79 05/29/17 11:23 83 16 100 05/29/17 11:00 82 19 133/81 92 Mechanical Ventilator 100 05/29/17 10:00 89 19 156/95 92 Mechanical Ventilator 100 05/29/17 09:31 88 157/96 05/29/17 09:29 94 23 100 05/29/17 09:00 100 05/29/17 09:00 76 17 157/96 93 Mechanical Ventilator 100 05/29/17 08:00 72 05/29/17 08:00 97.6 75 17 171/93 92 Mechanical Ventilator 100 05/29/17 07:29 72 16 100 05/29/17 07:00 77 16 175/100 91 Mechanical Ventilator 100 05/29/17 06:00 76 16 166/89 94 Mechanical Ventilator 100 05/29/17 05:29 92 16 100 05/29/17 05:00 84 19 164/100 93 Mechanical Ventilator 100 05/29/17 04:00 98.3 90 24 161/98 93 Mechanical Ventilator 100 05/29/17 04:00 100 05/29/17 04:00 90 05/29/17 03:20 69 16 100 05/29/17 03:00 69 16 169/85 92 Mechanical Ventilator 100 05/29/17 02:00 70 16 159/89 93 Mechanical Ventilator 100 05/29/17 01:28 73 16 100 05/29/17 01:00 69 16 159/87 93 Mechanical Ventilator 100 05/29/17 00:00 100 05/29/17 00:00 72 05/29/17 00:00 98.7 72 16 156/90 92 Mechanical Ventilator 100 05/28/17 23:24 68 16 100 05/28/17 23:00 68 16 154/87 93 Mechanical Ventilator 100 05/28/17 22:00 73 16 152/84 93 Mechanical Ventilator 100 05/28/17 21:17 69 16 100 05/28/17 21:00 73 16 154/90 94 Mechanical Ventilator 100 05/28/17 20:41 78 147/86 05/28/17 20:00 78 05/28/17 20:00 78 17 147/86 93 Mechanical Ventilator 100 05/28/17 20:00 100 05/28/17 19:24 80 16 100 05/28/17 19:00 75 16 139/80 95 Mechanical Ventilator 100 05/28/17 18:00 89 19 152/88 93 Mechanical Ventilator 100 05/28/17 17:29 96 15 100 05/28/17 17:00 85 16 137/117 91 Mechanical Ventilator 100 Intake and Output 05/28/17 05/29/17 19:00 07:00 Intake Total 240.0 ml 655.0 ml Output Total 2255 ml 2040 ml Balance -2015.0 ml -1385.0 ml Free Water 50 ml IV Total 170.0 ml 285.0 ml Tube Feeding 20 ml 320 ml Other 50 ml Output Urine Total 2255 ml 2040 ml Laboratory Tests 05/28/17 18:35: Urine Color Pale yellow, Urine Appearance Clear, Urine pH 6, Urine Specific [place] 1.010, Urine Protein 1+H, Urine Glucose (UA) Negative, Urine Ketones Negative, Urine Occult Blood 2+H, Urine Nitrite Negative, Urine Bilirubin Negative, Urine Urobilinogen Normal, Urine Leukocyte Esterase 1+H, Urine RBC 5- 10H, Urine WBC 2-4, Urine Squamous Epithelial Cells Occasional, Urine Bacteria None, Urine Random Sodium 124H, Urine Legionella Antigen [Pending] 05/29/17 03:34: White Blood Count 8.9, Red Blood Count 6.73H, Hemoglobin 14.3, Hematocrit 49.3, Mean Corpuscular Volume 73L, Mean Corpuscular Hemoglobin 21.2L, Mean Corpuscular Hemoglobin Concent 28.9L, Red Cell Distribution Width 18.0H, Platelet Count 192, Mean Platelet Volume 6.2L, Neutrophils (%) (Auto) 81.9H, Lymphocytes (%) (Auto) 5.3L, Monocytes (%) (Auto) 12.4H, Eosinophils (%) (Auto) 0.0, Basophils (%) (Auto) 0.3, Sodium Level 143, Potassium Level 3.8, Chloride Level 99, Carbon Dioxide Level 39H, Anion Gap 5, Blood Urea Nitrogen 31H, Creatinine 1.6H, Estimat Glomerular Filtration Rate 53.3, Glucose Level 69L, Uric Acid 7.3H, Calcium Level 8.8, Phosphorus Level 2.9, Magnesium Level 1.9, Total Bilirubin 1.3H, Direct Bilirubin 0.4H, Gamma Glutamyl Transpeptidase 204H , Aspartate Amino Transf (AST/SGOT) 25, Alanine Aminotransferase (ALT/SGPT) 20, Alkaline Phosphatase 80, Total Creatine Kinase 110, Troponin I 0.059H, Pro-B- Type Natriuretic Peptide 2420H, Total Protein 6.7, Albumin 2.8L, Globulin 3.9, Albumin/Globulin Ratio 0.7L, Thyroid Stimulating Hormone (TSH) 2.120 05/29/17 04:00: Urine Eosinophils None seen 05/29/17 08:14: Urine Eosinophils None seen 05/29/17 09:40: Arterial Blood pH 7.437, Arterial Blood Partial Pressure CO2 70.0*H, Arterial Blood Partial Pressure O2 56.8L, Arterial Blood HCO3 46.2H, Arterial Blood Oxygen Saturation 87.9L, Arterial Blood Base Excess 17.6, [place] Test Positive Height (Feet): 5 Height (Inches): 7.00 Weight (Pounds): 304 General Appearance: other - obese EENT: other - intubated Cardiovascular: tachycardia Respiratory/Chest: decreased breath sounds Abdomen: soft, distended Objective no other changes GIOVANNI ARMANDO May 29, 2017 16:16
--- NOTE | 2017-05-29 17:09 | Cardiology Progress Note ---
Assessment/Plan Assessment/Plan 1. Respiratory failure. 2. Acute on chronic systolic heart failure. 3. Hs of l eft ventricular systolic dysfunction. 4. Mitral regurgitation of byjsfyhn-in-bnswtt degree before now less 5. Pulmonary hypertension. 6. Morbid obesity. 7. Systemic hypertension. 8. Renal failure and hyperkalemia still required 100% oxygen echo nwo only tra MR! will need to review ctpa noted no PE but may be peircardail effusion of thickening diuresis as per dr gan if k i ok will considcer restarting of acei for bp indicated no cp now but when he walks has burning in the chest no priro cath may need to consider in future his coronaries adn need to assess for possibility of pericardial constriction as well Subjective Cardiovascular: Denies: chest pain, lightheadedness Respiratory: Reports: shortness of breath Gastrointestinal/Abdominal: Denies: abdominal pain Genitourinary: Denies: burning Subjective commnunicates with writing , indicated no cp now but eh he walks has burning in the chest no priro cath Objective Last 24 Hour Vital Signs Date Time Temp Pulse Resp B/P (MAP) Pulse Ox O2 Delivery O2 Flow Rate FiO2 05/29/17 16:00 100 05/29/17 15:09 77 16 100 05/29/17 14:00 81 17 139/75 95 Mechanical Ventilator 100 05/29/17 13:20 92 16 100 05/29/17 13:00 83 18 128/88 93 Mechanical Ventilator 100 05/29/17 12:00 100 05/29/17 12:00 76 16 135/93 90 Mechanical Ventilator 100 05/29/17 12:00 79 05/29/17 11:23 83 16 100 05/29/17 11:00 82 19 133/81 92 Mechanical Ventilator 100 05/29/17 10:00 89 19 156/95 92 Mechanical Ventilator 100 05/29/17 09:31 88 157/96 05/29/17 09:29 94 23 100 05/29/17 09:00 100 05/29/17 09:00 76 17 157/96 93 Mechanical Ventilator 100 05/29/17 08:00 72 05/29/17 08:00 97.6 75 17 171/93 92 Mechanical Ventilator 100 05/29/17 07:29 72 16 100 05/29/17 07:00 77 16 175/100 91 Mechanical Ventilator 100 05/29/17 06:00 76 16 166/89 94 Mechanical Ventilator 100 05/29/17 05:29 92 16 100 05/29/17 05:00 84 19 164/100 93 Mechanical Ventilator 100 05/29/17 04:00 98.3 90 24 161/98 93 Mechanical Ventilator 100 05/29/17 04:00 100 05/29/17 04:00 90 05/29/17 03:20 69 16 100 05/29/17 03:00 69 16 169/85 92 Mechanical Ventilator 100 05/29/17 02:00 70 16 159/89 93 Mechanical Ventilator 100 05/29/17 01:28 73 16 100 05/29/17 01:00 69 16 159/87 93 Mechanical Ventilator 100 05/29/17 00:00 100 05/29/17 00:00 72 05/29/17 00:00 98.7 72 16 156/90 92 Mechanical Ventilator 100 05/28/17 23:24 68 16 100 05/28/17 23:00 68 16 154/87 93 Mechanical Ventilator 100 05/28/17 22:00 73 16 152/84 93 Mechanical Ventilator 100 05/28/17 21:17 69 16 100 05/28/17 21:00 73 16 154/90 94 Mechanical Ventilator 100 05/28/17 20:41 78 147/86 05/28/17 20:00 78 05/28/17 20:00 78 17 147/86 93 Mechanical Ventilator 100 05/28/17 20:00 100 05/28/17 19:24 80 16 100 05/28/17 19:00 75 16 139/80 95 Mechanical Ventilator 100 05/28/17 18:00 89 19 152/88 93 Mechanical Ventilator 100 05/28/17 17:29 96 15 100 General Appearance: alert, on vent Neck: supple Cardiovascular: normal rate Respiratory/Chest: decreased breath sounds Abdomen: normal bowel sounds, non tender, soft Extremities: no swelling Intake and Output 05/28/17 05/29/17 19:00 07:00 Intake Total 240.0 ml 655.0 ml Output Total 2255 ml 2040 ml Balance -2015.0 ml -1385.0 ml Free Water 50 ml IV Total 170.0 ml 285.0 ml Tube Feeding 20 ml 320 ml Other 50 ml Output Urine Total 2255 ml 2040 ml Laboratory Tests Test 1/29/18 18:35 05/29/17 03:34 05/29/17 04:00 05/29/17 08:14 Urine Color Pale yellow Urine Appearance Clear Urine pH 6 (4.5-8.0) Urine Specific [place] 1.010 (1.005-1.035) Urine Protein 1+ (NEGATIVE) H Urine Glucose (UA) Negative (NEGATIVE) Urine Ketones Negative (NEGATIVE) Urine Occult Blood 2+ (NEGATIVE) H Urine Nitrite Negative (NEGATIVE) Urine Bilirubin Negative (NEGATIVE) Urine Urobilinogen Normal MG/DL (0.0-1.0) Urine Leukocyte Esterase 1+ (NEGATIVE) H Urine RBC 5-10 /HPF (0 - 0) H Urine WBC 2-4 /HPF (0 - 0) Urine Squamous Epithelial Cells Occasional /LPF Urine Bacteria None /HPF (NONE) Urine Random Sodium 124 MEQ/L (20-110) H Urine Legionella Antigen Pending White Blood Count 8.9 K/UL (4.8-10.8) Red Blood Count 6.73 M/UL (4.70-6.10) H Hemoglobin 14.3 G/DL (14.2-18.0) Hematocrit 49.3 % (42.0-52.0) Mean Corpuscular Volume 73 FL (80-99) L Mean Corpuscular Hemoglobin 21.2 PG (27.0-31.0) L Mean Corpuscular Hemoglobin Concent 28.9 G/DL (32.0-36.0) L Red Cell Distribution Width 18.0 % (11.6-14.8) H Platelet Count 192 K/UL (150-450) Mean Platelet Volume 6.2 FL (6.5-10.1) L Neutrophils (%) (Auto) 81.9 % (45.0-75.0) H Lymphocytes (%) (Auto) 5.3 % (20.0-45.0) L Monocytes (%) (Auto) 12.4 % (1.0-10.0) H Eosinophils (%) (Auto) 0.0 % (0.0-3.0) Basophils (%) (Auto) 0.3 % (0.0-2.0) Sodium Level 143 MMOL/L (136-145) Potassium Level 3.8 MMOL/L (3.5-5.1) Chloride Level 99 MMOL/L (98-107) Carbon Dioxide Level 39 MMOL/L (21-32) H Anion Gap 5 mmol/L (5-15) Blood Urea Nitrogen 31 mg/dL (7-18) H Creatinine 1.6 MG/DL (0.55-1.30) H Estimat Glomerular Filtration Rate 53.3 mL/min (>60) Glucose Level 69 MG/DL (74-106) L Uric Acid 7.3 MG/DL (2.6-7.2) H Calcium Level 8.8 MG/DL (8.5-10.1) Phosphorus Level 2.9 MG/DL (2.5-4.9) Magnesium Level 1.9 MG/DL (1.8-2.4) Total Bilirubin 1.3 MG/DL (0.2-1.0) H Direct Bilirubin 0.4 MG/DL (0.0-0.3) H Gamma Glutamyl Transpeptidase 204 U/L (5-85) H Aspartate Amino Transf (AST/SGOT) 25 U/L (15-37) Alanine Aminotransferase (ALT/SGPT) 20 U/L (12-78) Alkaline Phosphatase 80 U/L (46-116) Total Creatine Kinase 110 U/L (26-308) Troponin I 0.059 ng/mL (0.000-0.056) Pro-B-Type Natriuretic Peptide 2420 pg/mL (0-125) H Total Protein 6.7 G/DL (6.4-8.2) Albumin 2.8 G/DL (3.4-5.0) L Globulin 3.9 g/dL Albumin/Globulin Ratio 0.7 (1.0-2.7) L Thyroid Stimulating Hormone (TSH) 2.120 uiU/mL (0.358-3.740) Urine Eosinophils None seen None seen Test 05/29/17 09:40 Arterial Blood pH 7.437 (7.350-7.450) Arterial Blood Partial Pressure CO2 70.0 mmHg (35.0-45.0) *H Arterial Blood Partial Pressure O2 56.8 mmHg (75.0-100.0) L Arterial Blood HCO3 46.2 mmol/L (22.0-26.0) H Arterial Blood Oxygen Saturation 87.9 % (92.0-98.0) L Arterial Blood Base Excess 17.6 [place] Test Positive ABHISHEK BYRD May 29, 2017 17:09
[2017-05-29] MEDS: LORazepam Inj 2mg/ml 1ml IV PRN (23:18)
[2017-05-30] VITALS (25 sets, daily range): BP systolic 85–146; BP diastolic 49–87
[2017-05-30] MEDS: Piperacillin/Tazobactam 3.375 GM in NS 110 ML IVPB SCH ×3 (06:20→22:00)
[2017-05-30 06:25] LABS: HEMATOCRIT 52.2 % (42.0-52.0); HEMOGLOBIN 15.2 G/DL (14.2-18.0); MEAN CORPUSCULAR VOLUME 73 FL (80-99); PLATELET COUNT 203 K/UL (150-450); RED BLOOD COUNT 7.11 M/UL (4.70-6.10); WHITE BLOOD COUNT 10.4 K/UL (4.8-10.8)
[2017-05-30 08:06] LABS: ALANINE AMINOTRANSFERASE 22 U/L (12-78); ALBUMIN 2.8 G/DL (3.4-5.0); ALBUMIN/GLOBULIN RATIO 0.7 (1.0-2.7); ALKALINE PHOSPHATASE 86 U/L (46-116); ANION GAP 6 mmol/L (5-15); ASPARTATE AMINO TRANSFERASE 27 U/L (15-37); BILIRUBIN,TOTAL 2.3 MG/DL (0.2-1.0); BLOOD UREA NITROGEN 26 mg/dL (7-18); CALCIUM 8.8 MG/DL (8.5-10.1); CHLORIDE 92 MMOL/L (98-107); CREATININE 1.7 MG/DL (0.55-1.30); PHOSPHORUS 3.1 MG/DL (2.5-4.9); POTASSIUM 2.9 MMOL/L (3.5-5.1); SODIUM 142 MMOL/L (136-145)
[2017-05-30 08:10] LABS: CARBON DIOXIDE 44 MMOL/L (21-32)
[2017-05-30 08:12] LABS: BILIRUBIN,DIRECT 0.6 MG/DL (0.0-0.3)
[2017-05-30] MEDS: Theophylline ER 100mg ORAL SCH ×2 (09:19→20:54)
[2017-05-30] MEDS: Oseltamivir 75mg cap ORAL SCH ×2 (09:19→17:43)
[2017-05-30] MEDS: Carvedilol 6.25mg Tab ORAL SCH ×2 (09:33→20:53)
--- NOTE | 2017-05-30 10:36 | Diagnostic Imaging Report ---
Indication: Shortness of breath Technique: One view of the chest Comparison: 05/29/2017 Findings: There is retrocardiac consolidation and pleural fluid again demonstrated. Hazy right basilar opacity persists. Stable satisfactory positions of endotracheal and nasogastric tubes. Cardiomegaly persists. Impression: Unchanged, over one day, findings as above.
--- NOTE | 2017-05-30 10:37 | Infectious Diseases Prog Note ---
Assessment/Plan Assessment/Plan Assessment: Acute hypoxic/hypercapneic resp failure- likely multifacotrial 2ry to COPD/CHF exacerbation and PNA- r/o Influenza -s/p intubation 05/27 -CTA chest 05/29: Negative for acute pulmonary embolus or other acute thoracic vascular pathology. Pulmonary arterial dilatation, likely indicating chronic pulmonary arterial hypertension. Moderate-sized right and small left pleural effusions. Complete atelectasis and consolidation of both lower lobes. Mild interstitial congestion and hazy groundglass opacity of the aerated portions of the lungs, likely reflecting pulmonary edema. Endotracheal and nasogastric tubes pericardial thickening versus fluid, minimal. Degenerative spondylosis -sp Cx p -CXR 05/28: Improved but persistent parenchymal consolidation or edema, over one day -influenza test p Low grade fever x1 -no leukocytosis CAITLIN on CKD, improving CHF recent SAM sx (not yet on Bipap) HTN pHTN Mitral regurgitation med non compliance morbid obesity recent R tibial region injury Plan: -Continue Zosyn #5/7-10 pending sputum culture and Levaquin #3/5 for atypical coverage and Tamiflu #3/5 pending influenza test -monitor QTc -Continue IV Vancomycin #2 for MRSA coverage pending sp cx and in view of persistently high O2 requirements -f/u Legionella ag urine, Influenza -f/u cx -Monitor CBC/BMP, temperatures -ETT care -aspiration precautions Thank you for this consultation. Will continue to follow along with you. Discussed with RN Subjective Allergies: Coded Allergies: No Known Allergies (Unverified , 07/23/16) Subjective afebrile in 48hrs remains on Fio2 100% no leukocytosis awaiting sp cx and influenza Objective Vital Signs Last 24 Hour Vital Signs Date Time Temp Pulse Resp B/P (MAP) Pulse Ox O2 Delivery O2 Flow Rate FiO2 05/30/17 09:33 85 123/80 05/30/17 09:20 86 17 100 05/30/17 09:00 82 16 98/66 97 Mechanical Ventilator 100 05/30/17 08:00 100 05/30/17 08:00 98.9 84 16 123/80 97 Mechanical Ventilator 100 05/30/17 07:14 85 16 100 05/30/17 07:00 84 16 116/72 97 Mechanical Ventilator 100 05/30/17 06:00 87 19 128/71 97 Mechanical Ventilator 100 05/30/17 05:13 87 16 100 05/30/17 05:00 93 16 107/71 95 Mechanical Ventilator 100 05/30/17 04:00 100 05/30/17 04:00 98.7 74 16 120/79 95 Mechanical Ventilator 100 05/30/17 04:00 74 05/30/17 03:30 77 16 60 05/30/17 03:00 89 21 97/57 90 Mechanical Ventilator 100 05/30/17 02:00 85 18 146/83 97 Mechanical Ventilator 100 05/30/17 01:30 84 16 60 05/30/17 01:00 91 18 134/84 98 Mechanical Ventilator 100 05/30/17 00:00 98.9 104 19 124/86 96 Mechanical Ventilator 100 05/30/17 00:00 110 05/29/17 23:10 108 16 100 05/29/17 23:00 99 16 112/70 98 Mechanical Ventilator 100 05/29/17 22:00 94 16 141/86 99 Mechanical Ventilator 100 05/29/17 21:00 99 21 159/99 90 Mechanical Ventilator 100 05/29/17 20:57 93 161/100 05/29/17 20:50 93 16 100 05/29/17 20:00 99.6 82 16 161/100 93 Mechanical Ventilator 100 05/29/17 20:00 100 05/29/17 20:00 82 05/29/17 19:30 94 16 100 05/29/17 19:00 88 21 147/84 88 Mechanical Ventilator 100 05/29/17 18:00 86 18 103/82 88 Mechanical Ventilator 100 05/29/17 17:28 74 16 100 05/29/17 17:00 78 17 157/96 88 Mechanical Ventilator 100 05/29/17 16:00 72 05/29/17 16:00 98.6 74 16 152/82 88 Mechanical Ventilator 100 05/29/17 16:00 100 05/29/17 15:09 77 16 100 05/29/17 15:00 79 16 141/79 92 Mechanical Ventilator 100 05/29/17 14:00 81 17 139/75 95 Mechanical Ventilator 100 05/29/17 13:20 92 16 100 05/29/17 13:00 83 18 128/88 93 Mechanical Ventilator 100 05/29/17 12:00 100 05/29/17 12:00 76 16 135/93 90 Mechanical Ventilator 100 05/29/17 12:00 79 05/29/17 11:23 83 16 100 05/29/17 11:00 82 19 133/81 92 Mechanical Ventilator 100 Height (Feet): 5 Height (Inches): 7.00 Weight (Pounds): 257 Objective GENERAL: Shows to be middle-aged gentleman, on a mechanical ventilator, NECK: Supple. LUNGS: Decreased breath sounds noted bilaterally CARDIAC: Regular rate and rhythm. ABDOMEN: Obese. Positive bowel sounds. Nontender. EXTREMITIES: There is edema of the lower extremities bilaterally all the way up to his thigh. NEUROLOGICAL: He is noncommunicative or following any commands. Laboratory Tests Test 05/30/17 05:00 05/30/17 08:30 White Blood Count 10.4 K/UL (4.8-10.8) Red Blood Count 7.11 M/UL (4.70-6.10) H Hemoglobin 15.2 G/DL (14.2-18.0) Hematocrit 52.2 % (42.0-52.0) H Mean Corpuscular Volume 73 FL (80-99) L Mean Corpuscular Hemoglobin 21.4 PG (27.0-31.0) L Mean Corpuscular Hemoglobin Concent 29.1 G/DL (32.0-36.0) L Red Cell Distribution Width 18.0 % (11.6-14.8) H Platelet Count 203 K/UL (150-450) Mean Platelet Volume 7.6 FL (6.5-10.1) Neutrophils (%) (Auto) % (45.0-75.0) Lymphocytes (%) (Auto) % (20.0-45.0) Monocytes (%) (Auto) % (1.0-10.0) Eosinophils (%) (Auto) % (0.0-3.0) Basophils (%) (Auto) % (0.0-2.0) Differential Total Cells Counted 100 Neutrophils % (Manual) 88 % (45-75) H Lymphocytes % (Manual) 5 % (20-45) L Monocytes % (Manual) 7 % (1-10) Eosinophils % (Manual) 0 % (0-3) Basophils % (Manual) 0 % (0-2) Band Neutrophils 0 % (0-8) Platelet Estimate Adequate Platelet Morphology Normal Hypochromasia 3+ Microcytosis 3+ Target Cells 1+ Stomatocytes 2+ Helmet Cells 1+ Sodium Level 142 MMOL/L (136-145) Potassium Level 2.9 MMOL/L (3.5-5.1) L Chloride Level 92 MMOL/L (98-107) L Carbon Dioxide Level 44 MMOL/L (21-32) *H Anion Gap 6 mmol/L (5-15) Blood Urea Nitrogen 26 mg/dL (7-18) H Creatinine 1.7 MG/DL (0.55-1.30) H Estimat Glomerular Filtration Rate 49.7 mL/min (>60) Glucose Level 113 MG/DL (74-106) H Calcium Level 8.8 MG/DL (8.5-10.1) Phosphorus Level 3.1 MG/DL (2.5-4.9) Magnesium Level 1.8 MG/DL (1.8-2.4) Total Bilirubin 2.3 MG/DL (0.2-1.0) H Direct Bilirubin 0.6 MG/DL (0.0-0.3) H Aspartate Amino Transf (AST/SGOT) 27 U/L (15-37) Alanine Aminotransferase (ALT/SGPT) 22 U/L (12-78) Alkaline Phosphatase 86 U/L (46-116) Troponin I 0.095 ng/mL (0.000-0.056) Total Protein 7.1 G/DL (6.4-8.2) Albumin 2.8 G/DL (3.4-5.0) L Globulin 4.3 g/dL Albumin/Globulin Ratio 0.7 (1.0-2.7) L Arterial Blood pH 7.504 (7.350-7.450) Arterial Blood Partial Pressure CO2 65.6 mmHg (35.0-45.0) *H Arterial Blood Partial Pressure O2 57.6 mmHg (75.0-100.0) L Arterial Blood HCO3 50.5 mmol/L (22.0-26.0) H Arterial Blood Oxygen Saturation 89.1 % (92.0-98.0) L Arterial Blood Base Excess 22.2 [place] Test Positive Current Medications Medications (Trade) Dose Ordered Sig/Judy Route PRN Reason Start Time Stop Time Status Last Admin Dose Admin Albuterol/ Ipratropium (Albuterol/ Ipratropium) 3 ml Q4H PRN HHN dyspnea 05/27/17 18:30 05/31/17 18:29 Carvedilol (Coreg) 6.25 mg EVERY 12 HOURS ORAL 05/27/17 21:00 06/25/17 20:59 05/30/17 09:33 Dextrose (Dextrose 50%) STAT PRN IV Hypoglycemia 05/27/17 18:30 06/26/17 18:29 Famotidine (Pepcid I.v.) 20 mg Q12HR IVP 05/28/17 21:00 06/27/17 20:59 05/30/17 09:18 Furosemide 100 mg/ Dextrose 100 ml @ 10 mls/hr Q10H IV 05/28/17 12:00 06/27/17 11:59 05/30/17 05:10 Levofloxacin (Levaquin) 750 mg QHS ORAL 05/28/17 21:00 06/04/17 20:59 05/29/17 20:57 Lorazepam (Ativan 2mg/ml 1ml) 2 mg Q4H PRN IV For Anxiety 05/27/17 18:30 06/03/17 14:29 05/29/17 23:18 Morphine Sulfate (Morphine Sulfate) 4 mg Q4H PRN IVP PAIN 4-10 05/27/17 18:30 06/03/17 14:29 05/30/17 00:07 Nitroglycerin (Ntg) 0.4 mg Q5M X 3 DOSES PRN SL Prn Chest Pain 05/27/17 18:30 06/25/17 18:29 Ondansetron HCl (Zofran) 4 mg Q6H PRN IVP Nausea & Vomiting 05/27/17 18:30 06/25/17 18:29 Oseltamivir Phosphate (Tamiflu) 75 mg TWICE A DAY ORAL 05/28/17 21:00 06/02/17 20:59 05/30/17 09:19 Piperacillin Sod/ Tazobactam Sod 3.375 gm/Sodium Chloride 110 ml @ 27.5 mls/hr EVERY 8 HOURS IVPB 05/27/17 22:00 05/31/17 15:59 05/30/17 06:20 Temazepam (Restoril) 15 mg HSPRN PRN ORAL Insomnia 05/27/17 21:00 06/02/17 20:59 05/29/17 21:05 Theophylline (Frandy-Dur) 100 mg EVERY 12 HOURS ORAL 05/27/17 21:00 06/25/17 20:59 05/30/17 09:19 Vancomycin HCl (Vanco rx to dose) 1 ea DAILY PRN MISC Per rx protocol 05/29/17 09:45 06/28/17 09:44 Vancomycin HCl/ Dextrose 250 ml @ 125 mls/hr Q24H IVPB 05/29/17 11:00 06/03/17 10:59 05/29/17 12:02 Elma Paris M.D. May 30, 2017 10:37
--- NOTE | 2017-05-30 10:39 | Pulmonolgy Critical Care Note ---
Critical Care - Asmt/Plan Problems: (1) Respiratory arrest (2) COPD exacerbation (3) HTN (hypertension) (4) CHF (congestive heart failure) (5) ATN (acute tubular necrosis) Assessment/Plan: CT agnio was negative for pulmonary emboli. showed pulmonary edema and effusion Respiratory: adjust tidal volume, monitor respiratory rate, adjust FIO2 Cardiac: continue to monitor HR/BP Renal: F/U I&O, other - continue Lasix drip at 10 mg/hour Infectious Disease: check cultures Gastrointestinal: continue feedings/current rate Endocrine: monitor blood sugar, continue sliding scale insulin Hematologic: monitor H/H, transfuse if hgb<8.5 Neurologic: PRN Ativan, PRN Morphine, keep patient comfortable Prophylaxis: Heparin Disposition: keep in ICU Notes Reviewed: truck spotter, cardio, renal Discussed with: nurses, consultants, director of casework departmentmanager product design - Objective Last 24 Hour Vital Signs Date Time Temp Pulse Resp B/P (MAP) Pulse Ox O2 Delivery O2 Flow Rate FiO2 05/30/17 09:33 85 123/80 05/30/17 09:20 86 17 100 05/30/17 09:00 82 16 98/66 97 Mechanical Ventilator 100 05/30/17 08:00 100 05/30/17 08:00 98.9 84 16 123/80 97 Mechanical Ventilator 100 05/30/17 07:14 85 16 100 05/30/17 07:00 84 16 116/72 97 Mechanical Ventilator 100 05/30/17 06:00 87 19 128/71 97 Mechanical Ventilator 100 05/30/17 05:13 87 16 100 05/30/17 05:00 93 16 107/71 95 Mechanical Ventilator 100 05/30/17 04:00 100 05/30/17 04:00 98.7 74 16 120/79 95 Mechanical Ventilator 100 05/30/17 04:00 74 05/30/17 03:30 77 16 60 05/30/17 03:00 89 21 97/57 90 Mechanical Ventilator 100 05/30/17 02:00 85 18 146/83 97 Mechanical Ventilator 100 05/30/17 01:30 84 16 60 05/30/17 01:00 91 18 134/84 98 Mechanical Ventilator 100 05/30/17 00:00 98.9 104 19 124/86 96 Mechanical Ventilator 100 05/30/17 00:00 110 1/30/18 23:10 108 16 100 05/29/17 23:00 99 16 112/70 98 Mechanical Ventilator 100 05/29/17 22:00 94 16 141/86 99 Mechanical Ventilator 100 05/29/17 21:00 99 21 159/99 90 Mechanical Ventilator 100 05/29/17 20:57 93 161/100 05/29/17 20:50 93 16 100 05/29/17 20:00 99.6 82 16 161/100 93 Mechanical Ventilator 100 05/29/17 20:00 100 05/29/17 20:00 82 05/29/17 19:30 94 16 100 05/29/17 19:00 88 21 147/84 88 Mechanical Ventilator 100 05/29/17 18:00 86 18 103/82 88 Mechanical Ventilator 100 05/29/17 17:28 74 16 100 05/29/17 17:00 78 17 157/96 88 Mechanical Ventilator 100 05/29/17 16:00 72 05/29/17 16:00 98.6 74 16 152/82 88 Mechanical Ventilator 100 05/29/17 16:00 100 05/29/17 15:09 77 16 100 05/29/17 15:00 79 16 141/79 92 Mechanical Ventilator 100 05/29/17 14:00 81 17 139/75 95 Mechanical Ventilator 100 05/29/17 13:20 92 16 100 05/29/17 13:00 83 18 128/88 93 Mechanical Ventilator 100 05/29/17 12:00 100 05/29/17 12:00 76 16 135/93 90 Mechanical Ventilator 100 05/29/17 12:00 79 05/29/17 11:23 83 16 100 05/29/17 11:00 82 19 133/81 92 Mechanical Ventilator 100 Status: awake Condition: critical HEENT: atraumatic Neck: full ROM Lungs: clear Heart: HR/BP stable Abdomen: soft, non-tender, feeding tube Extremities: no C/C/E Decubiti: location Critical Care - Subjective ROS Limited/Unobtainable: No ICU Day: 3 Intubation Day: 3 Condition: critical EKG Rhythm: Sinus Rhythm FI02: 100 Vent Support Breath Rate: 16 Vent Support Mode: AC Vent Tidal Volume: 600 Sputum Amount: Large PIP: 32 Tube Feeding Amount: 30 I&O: Intake and Output 05/29/17 05/30/17 19:00 07:00 Intake Total 725 ml 570.0 ml Output Total 2280 ml 4150 ml Balance -1555 ml -3580.0 ml IV Total 365 ml 210.0 ml Tube Feeding 360 ml 360 ml Output Urine Total 2280 ml 4150 ml CXR: pulmonary edema ET-Tube: 7.5 ET Position: 23 Labs: Laboratory Tests Test 05/30/17 05:00 05/30/17 08:30 White Blood Count 10.4 K/UL (4.8-10.8) Red Blood Count 7.11 M/UL (4.70-6.10) H Hemoglobin 15.2 G/DL (14.2-18.0) Hematocrit 52.2 % (42.0-52.0) H Mean Corpuscular Volume 73 FL (80-99) L Mean Corpuscular Hemoglobin 21.4 PG (27.0-31.0) L Mean Corpuscular Hemoglobin Concent 29.1 G/DL (32.0-36.0) L Red Cell Distribution Width 18.0 % (11.6-14.8) H Platelet Count 203 K/UL (150-450) Mean Platelet Volume 7.6 FL (6.5-10.1) Neutrophils (%) (Auto) % (45.0-75.0) Lymphocytes (%) (Auto) % (20.0-45.0) Monocytes (%) (Auto) % (1.0-10.0) Eosinophils (%) (Auto) % (0.0-3.0) Basophils (%) (Auto) % (0.0-2.0) Differential Total Cells Counted 100 Neutrophils % (Manual) 88 % (45-75) H Lymphocytes % (Manual) 5 % (20-45) L Monocytes % (Manual) 7 % (1-10) Eosinophils % (Manual) 0 % (0-3) Basophils % (Manual) 0 % (0-2) Band Neutrophils 0 % (0-8) Platelet Estimate Adequate Platelet Morphology Normal Hypochromasia 3+ Microcytosis 3+ Target Cells 1+ Stomatocytes 2+ Helmet Cells 1+ Sodium Level 142 MMOL/L (136-145) Potassium Level 2.9 MMOL/L (3.5-5.1) L Chloride Level 92 MMOL/L (98-107) L Carbon Dioxide Level 44 MMOL/L (21-32) *H Anion Gap 6 mmol/L (5-15) Blood Urea Nitrogen 26 mg/dL (7-18) H Creatinine 1.7 MG/DL (0.55-1.30) H Estimat Glomerular Filtration Rate 49.7 mL/min (>60) Glucose Level 113 MG/DL (74-106) H Calcium Level 8.8 MG/DL (8.5-10.1) Phosphorus Level 3.1 MG/DL (2.5-4.9) Magnesium Level 1.8 MG/DL (1.8-2.4) Total Bilirubin 2.3 MG/DL (0.2-1.0) H Direct Bilirubin 0.6 MG/DL (0.0-0.3) H Aspartate Amino Transf (AST/SGOT) 27 U/L (15-37) Alanine Aminotransferase (ALT/SGPT) 22 U/L (12-78) Alkaline Phosphatase 86 U/L (46-116) Troponin I 0.095 ng/mL (0.000-0.056) Total Protein 7.1 G/DL (6.4-8.2) Albumin 2.8 G/DL (3.4-5.0) L Globulin 4.3 g/dL Albumin/Globulin Ratio 0.7 (1.0-2.7) L Arterial Blood pH 7.504 (7.350-7.450) Arterial Blood Partial Pressure CO2 65.6 mmHg (35.0-45.0) *H Arterial Blood Partial Pressure O2 57.6 mmHg (75.0-100.0) L Arterial Blood HCO3 50.5 mmol/L (22.0-26.0) H Arterial Blood Oxygen Saturation 89.1 % (92.0-98.0) L Arterial Blood Base Excess 22.2 [place] Test Positive KEITH CHONG May 30, 2017 10:39
[2017-05-30] MEDS: Vancomycin 1.5 GM/D5W 250ML IVPB SCH (11:30)
--- NOTE | 2017-05-30 12:08 | Nephrology Progress Note ---
Assessment/Plan Problem List: (1) Respiratory arrest (2) ATN (acute tubular necrosis) (3) HTN (hypertension) (4) ACS (acute coronary syndrome) Assessment remains intubated on vent in ICU - ARF Cr 1.6 - 2.0 - 1.7 - CKD underlying - Fluid overloud - morbid obesity - COPD / CHF / sleep apnea ? - HTN troponin leak Plan K supplement- Diamox UA Keep BP and BS in check Pulmonary support avoid Nephrotoxics slow diuresis 24 h urine protein Subjective ROS Limited/Unobtainable: Yes Objective Objective Last 24 Hour Vital Signs Date Time Temp Pulse Resp B/P (MAP) Pulse Ox O2 Delivery O2 Flow Rate FiO2 05/30/17 11:16 98 19 100 05/30/17 09:33 85 123/80 05/30/17 09:20 86 17 100 05/30/17 09:00 82 16 98/66 97 Mechanical Ventilator 100 05/30/17 08:00 100 05/30/17 08:00 98.9 84 16 123/80 97 Mechanical Ventilator 100 05/30/17 07:14 85 16 100 05/30/17 07:00 84 16 116/72 97 Mechanical Ventilator 100 05/30/17 06:00 87 19 128/71 97 Mechanical Ventilator 100 05/30/17 05:13 87 16 100 05/30/17 05:00 93 16 107/71 95 Mechanical Ventilator 100 05/30/17 04:00 100 05/30/17 04:00 98.7 74 16 120/79 95 Mechanical Ventilator 100 05/30/17 04:00 74 05/30/17 03:30 77 16 60 05/30/17 03:00 89 21 97/57 90 Mechanical Ventilator 100 05/30/17 02:00 85 18 146/83 97 Mechanical Ventilator 100 05/30/17 01:30 84 16 60 05/30/17 01:00 91 18 134/84 98 Mechanical Ventilator 100 05/30/17 00:00 98.9 104 19 124/86 96 Mechanical Ventilator 100 05/30/17 00:00 110 05/29/17 23:10 108 16 100 05/29/17 23:00 99 16 112/70 98 Mechanical Ventilator 100 05/29/17 22:00 94 16 141/86 99 Mechanical Ventilator 100 05/29/17 21:00 99 21 159/99 90 Mechanical Ventilator 100 05/29/17 20:57 93 161/100 05/29/17 20:50 93 16 100 05/29/17 20:00 99.6 82 16 161/100 93 Mechanical Ventilator 100 05/29/17 20:00 100 05/29/17 20:00 82 05/29/17 19:30 94 16 100 05/29/17 19:00 88 21 147/84 88 Mechanical Ventilator 100 05/29/17 18:00 86 18 103/82 88 Mechanical Ventilator 100 05/29/17 17:28 74 16 100 05/29/17 17:00 78 17 157/96 88 Mechanical Ventilator 100 05/29/17 16:00 72 05/29/17 16:00 98.6 74 16 152/82 88 Mechanical Ventilator 100 05/29/17 16:00 100 05/29/17 15:09 77 16 100 05/29/17 15:00 79 16 141/79 92 Mechanical Ventilator 100 05/29/17 14:00 81 17 139/75 95 Mechanical Ventilator 100 05/29/17 13:20 92 16 100 05/29/17 13:00 83 18 128/88 93 Mechanical Ventilator 100 Intake and Output 05/29/17 05/30/17 19:00 07:00 Intake Total 725 ml 570.0 ml Output Total 2280 ml 4150 ml Balance -1555 ml -3580.0 ml IV Total 365 ml 210.0 ml Tube Feeding 360 ml 360 ml Output Urine Total 2280 ml 4150 ml Laboratory Tests 05/30/17 05:00: White Blood Count 10.4, Red Blood Count 7.11H, Hemoglobin 15.2, Hematocrit 52.2H , Mean Corpuscular Volume 73L, Mean Corpuscular Hemoglobin 21.4L, Mean Corpuscular Hemoglobin Concent 29.1L, Red Cell Distribution Width 18.0H, Platelet Count 203, Mean Platelet Volume 7.6, Neutrophils (%) (Auto) , Lymphocytes (%) (Auto) , Monocytes (%) (Auto) , Eosinophils (%) (Auto) , Basophils (%) (Auto) , Differential Total Cells Counted 100, Neutrophils % ( Manual) 88H, Lymphocytes % (Manual) 5L, Monocytes % (Manual) 7, Eosinophils % ( Manual) 0, Basophils % (Manual) 0, Band Neutrophils 0, Platelet Estimate Adequate, Platelet Morphology Normal, Hypochromasia 3+, Microcytosis 3+, Target Cells 1+, Stomatocytes 2+, Helmet Cells 1+, Sodium Level 142, Potassium Level 2.9L, Chloride Level 92L, Carbon Dioxide Level 44*H, Anion Gap 6, Blood Urea Nitrogen 26H, Creatinine 1.7H, Estimat Glomerular Filtration Rate 49.7, Glucose Level 113H, Calcium Level 8.8, Phosphorus Level 3.1, Magnesium Level 1.8, Total Bilirubin 2.3H, Direct Bilirubin 0.6H, Aspartate Amino Transf (AST/SGOT) 27, Alanine Aminotransferase (ALT/SGPT) 22, Alkaline Phosphatase 86, Troponin I 0.095H, Total Protein 7.1, Albumin 2.8L, Globulin 4.3, Albumin/Globulin Ratio 0.7L 05/30/17 08:30: Arterial Blood pH 7.504H, Arterial Blood Partial Pressure CO2 65.6*H, Arterial Blood Partial Pressure O2 57.6L, Arterial Blood HCO3 50.5H, Arterial Blood Oxygen Saturation 89.1L, Arterial Blood Base Excess 22.2, [place] Test Positive Height (Feet): 5 Height (Inches): 7.00 Weight (Pounds): 257 General Appearance: no apparent distress Cardiovascular: tachycardia Respiratory/Chest: decreased breath sounds Abdomen: soft, other - obese Objective no other changes GIOVANNI ARMANDO May 30, 2017 12:08
[2017-05-30] MEDS ORDERED: Potassium Chloride 50 MEQ in Sodium Chloride 500ML 550 ML IVPB ONE (14:00)
--- NOTE | 2017-05-30 14:45 | Cardiology Report ---
APPROVED REPORT EXAM: Two-dimensional and M-mode echocardiogram with Doppler and color Doppler. INDICATION Bubble Study- Elevated troponin Bubble study was negative for presence of PFO shunt.
--- NOTE | 2017-05-30 15:50 | Cardiology Progress Note ---
Assessment/Plan Assessment/Plan 1. Respiratory failure. 2. RV hypokinesis / dilation 3. normal lv systolic function 4. Mitral regurgitation mild 5. Pulmonary hypertension possibly chronic based on pulm arterial dilation and rve dating back to last year 6. Morbid obesity. 7. Systemic hypertension. 8. Renal failure and hyperkalemia 9. Pulm arterial dilation suggestive of chronic pulm htn 10. mixed acid base do , respiratory acidosis and metabolic alkalosis still required 100% oxygen and now on peep as well echo reviewed no shunting by bubble study i reviewed echo done last few day no sig mr lv function seems fine rv is hypokinetic and dilated on echo done last week and limited today also confirmed rv hypo and dialtion the echo from last year reviewed as well MR was not sig then but rve was present at that time as well, ct showed pulm arterial enlargement ctpa noted no PE but may be pericardial effusion of thickening is being diuresed but no change in oxygen sat so far yest indicated no cp now but when he walked previously had burning in the chest no priro cath may need to consider in future his coronaries adn need to assess for possibility of pericardial constriction as well i dont see a major cause e of secondary pulm htn related to cardiac function even his diastolic function parameter seem ok i suspect more of a pulm issue as a cause of pulm htn rather a secondary cardiac will d/w dr amador watch bp with diuresis diamox beign ordered i agree adn co2 is now in the 40s Subjective Cardiovascular: Denies: chest pain Subjective commnunicates with writing , Objective Last 24 Hour Vital Signs Date Time Temp Pulse Resp B/P (MAP) Pulse Ox O2 Delivery O2 Flow Rate FiO2 05/30/17 14:00 90 18 92/71 100 Mechanical Ventilator 100 05/30/17 13:10 83 17 100 05/30/17 13:00 85 17 113/72 100 Mechanical Ventilator 100 05/30/17 12:00 98.2 85 19 126/80 100 Mechanical Ventilator 100 05/30/17 12:00 100 05/30/17 11:16 98 19 100 05/30/17 11:00 81 16 143/87 99 Mechanical Ventilator 100 05/30/17 11:00 100 05/30/17 10:00 83 16 97/56 100 Mechanical Ventilator 100 05/30/17 09:33 85 123/80 05/30/17 09:20 86 17 100 05/30/17 09:00 82 16 98/66 97 Mechanical Ventilator 100 05/30/17 08:00 100 05/30/17 08:00 98.9 84 16 123/80 97 Mechanical Ventilator 100 05/30/17 07:14 85 16 100 05/30/17 07:00 84 16 116/72 97 Mechanical Ventilator 100 05/30/17 06:00 87 19 128/71 97 Mechanical Ventilator 100 05/30/17 05:13 87 16 100 05/30/17 05:00 93 16 107/71 95 Mechanical Ventilator 100 05/30/17 04:00 100 05/30/17 04:00 98.7 74 16 120/79 95 Mechanical Ventilator 100 05/30/17 04:00 74 05/30/17 03:30 77 16 60 05/30/17 03:00 89 21 97/57 90 Mechanical Ventilator 100 05/30/17 02:00 85 18 146/83 97 Mechanical Ventilator 100 05/30/17 01:30 84 16 60 05/30/17 01:00 91 18 134/84 98 Mechanical Ventilator 100 05/30/17 00:00 98.9 104 19 124/86 96 Mechanical Ventilator 100 05/30/17 00:00 110 05/29/17 23:10 108 16 100 05/29/17 23:00 99 16 112/70 98 Mechanical Ventilator 100 05/29/17 22:00 94 16 141/86 99 Mechanical Ventilator 100 05/29/17 21:00 99 21 159/99 90 Mechanical Ventilator 100 05/29/17 20:57 93 161/100 05/29/17 20:50 93 16 100 05/29/17 20:00 99.6 82 16 161/100 93 Mechanical Ventilator 100 05/29/17 20:00 100 05/29/17 20:00 82 05/29/17 19:30 94 16 100 05/29/17 19:00 88 21 147/84 88 Mechanical Ventilator 100 05/29/17 18:00 86 18 103/82 88 Mechanical Ventilator 100 05/29/17 17:28 74 16 100 05/29/17 17:00 78 17 157/96 88 Mechanical Ventilator 100 05/29/17 16:00 72 05/29/17 16:00 98.6 74 16 152/82 88 Mechanical Ventilator 100 05/29/17 16:00 100 General Appearance: no apparent distress Neck: no JVD Cardiovascular: normal rate, regular rhythm Respiratory/Chest: lungs clear, normal breath sounds Abdomen: normal bowel sounds, non tender, soft Extremities: no swelling Intake and Output 05/29/17 05/30/17 19:00 07:00 Intake Total 725 ml 570.0 ml Output Total 2280 ml 4150 ml Balance -1555 ml -3580.0 ml IV Total 365 ml 210.0 ml Tube Feeding 360 ml 360 ml Output Urine Total 2280 ml 4150 ml Laboratory Tests Test 05/30/17 05:00 05/30/17 08:30 White Blood Count 10.4 K/UL (4.8-10.8) Red Blood Count 7.11 M/UL (4.70-6.10) H Hemoglobin 15.2 G/DL (14.2-18.0) Hematocrit 52.2 % (42.0-52.0) H Mean Corpuscular Volume 73 FL (80-99) L Mean Corpuscular Hemoglobin 21.4 PG (27.0-31.0) L Mean Corpuscular Hemoglobin Concent 29.1 G/DL (32.0-36.0) L Red Cell Distribution Width 18.0 % (11.6-14.8) H Platelet Count 203 K/UL (150-450) Mean Platelet Volume 7.6 FL (6.5-10.1) Neutrophils (%) (Auto) % (45.0-75.0) Lymphocytes (%) (Auto) % (20.0-45.0) Monocytes (%) (Auto) % (1.0-10.0) Eosinophils (%) (Auto) % (0.0-3.0) Basophils (%) (Auto) % (0.0-2.0) Differential Total Cells Counted 100 Neutrophils % (Manual) 88 % (45-75) H Lymphocytes % (Manual) 5 % (20-45) L Monocytes % (Manual) 7 % (1-10) Eosinophils % (Manual) 0 % (0-3) Basophils % (Manual) 0 % (0-2) Band Neutrophils 0 % (0-8) Platelet Estimate Adequate Platelet Morphology Normal Hypochromasia 3+ Microcytosis 3+ Target Cells 1+ Stomatocytes 2+ Helmet Cells 1+ Sodium Level 142 MMOL/L (136-145) Potassium Level 2.9 MMOL/L (3.5-5.1) L Chloride Level 92 MMOL/L (98-107) L Carbon Dioxide Level 44 MMOL/L (21-32) *H Anion Gap 6 mmol/L (5-15) Blood Urea Nitrogen 26 mg/dL (7-18) H Creatinine 1.7 MG/DL (0.55-1.30) H Estimat Glomerular Filtration Rate 49.7 mL/min (>60) Glucose Level 113 MG/DL (74-106) H Calcium Level 8.8 MG/DL (8.5-10.1) Phosphorus Level 3.1 MG/DL (2.5-4.9) Magnesium Level 1.8 MG/DL (1.8-2.4) Total Bilirubin 2.3 MG/DL (0.2-1.0) H Direct Bilirubin 0.6 MG/DL (0.0-0.3) H Aspartate Amino Transf (AST/SGOT) 27 U/L (15-37) Alanine Aminotransferase (ALT/SGPT) 22 U/L (12-78) Alkaline Phosphatase 86 U/L (46-116) Troponin I 0.095 ng/mL (0.000-0.056) C-Reactive Protein, Quantitative 8.7 mg/dL (0.00-0.90) H Total Protein 7.1 G/DL (6.4-8.2) Albumin 2.8 G/DL (3.4-5.0) L Globulin 4.3 g/dL Albumin/Globulin Ratio 0.7 (1.0-2.7) L Arterial Blood pH 7.504 (7.350-7.450) Arterial Blood Partial Pressure CO2 65.6 mmHg (35.0-45.0) *H Arterial Blood Partial Pressure O2 57.6 mmHg (75.0-100.0) L Arterial Blood HCO3 50.5 mmol/L (22.0-26.0) H Arterial Blood Oxygen Saturation 89.1 % (92.0-98.0) L Arterial Blood Base Excess 22.2 [place] Test Positive Microbiology Date/Time Source Procedure Growth Status 05/28/17 11:01 Sputum Gram Stain - Final Resulted 05/28/17 11:01 Sputum Sputum Culture - Preliminary NO GROWTH AFTER 24 HOURS Resulted ABHISHEK BYRD May 30, 2017 15:50
[2017-05-30] MEDS ORDERED: Tubing IV Secondary IV ONE (17:36)
--- NOTE | 2017-05-30 19:04 | Cardiology Report ---
APPROVED REPORT EKG Measurement Heart [id number] VT [id number] Normal sinus rhythm Possible Left atrial enlargement Incomplete right bundle branch block Inferior infarct, age undetermined Anterior infarct, age undetermined Abnormal ECG
[2017-05-31] VITALS (24 sets, daily range): BP systolic 96–136; BP diastolic 54–88
[2017-05-31 04:26] LABS: HEMATOCRIT 51.4 % (42.0-52.0); HEMOGLOBIN 15.3 G/DL (14.2-18.0); MEAN CORPUSCULAR VOLUME 73 FL (80-99); PLATELET COUNT 146 K/UL (150-450); RED BLOOD COUNT 7.02 M/UL (4.70-6.10); WHITE BLOOD COUNT 9.9 K/UL (4.8-10.8)
[2017-05-31 05:01] LABS: ALANINE AMINOTRANSFERASE 17 U/L (12-78); ALBUMIN 2.4 G/DL (3.4-5.0); ALBUMIN/GLOBULIN RATIO 0.6 (1.0-2.7); ALKALINE PHOSPHATASE 75 U/L (46-116); ANION GAP 4 mmol/L (5-15); ASPARTATE AMINO TRANSFERASE 24 U/L (15-37); BILIRUBIN,TOTAL 2.9 MG/DL (0.2-1.0); BLOOD UREA NITROGEN 27 mg/dL (7-18); CALCIUM 8.7 MG/DL (8.5-10.1); CHLORIDE 96 MMOL/L (98-107); CREATININE 1.7 MG/DL (0.55-1.30); PHOSPHORUS 2.8 MG/DL (2.5-4.9); SODIUM 141 MMOL/L (136-145)
[2017-05-31 05:08] LABS: CARBON DIOXIDE 41 MMOL/L (21-32); POTASSIUM 2.5 MMOL/L (3.5-5.1)
[2017-05-31 05:28] LABS: BILIRUBIN,DIRECT 1.1 MG/DL (0.0-0.3)
[2017-05-31] MEDS: Piperacillin/Tazobactam 3.375 GM in NS 110 ML IVPB SCH (05:37)
[2017-05-31] MEDS ORDERED: Potassium Chloride 10 MEQ in NS 110 ML IVPB SCH (07:00)
[2017-05-31] MEDS: Theophylline ER 100mg ORAL SCH ×2 (08:44→20:57)
[2017-05-31] MEDS: Carvedilol 6.25mg Tab ORAL SCH ×2 (08:45→20:55)
--- NOTE | 2017-05-31 10:20 | Pulmonolgy Critical Care Note ---
Critical Care - Asmt/Plan Problems: (1) Respiratory arrest (2) COPD exacerbation (3) HTN (hypertension) (4) CHF (congestive heart failure) (5) ATN (acute tubular necrosis) Assessment/Plan: CT agnio was negative for pulmonary emboli. showed pulmonary edema and effusion Respiratory: monitor respiratory rate, adjust FIO2, CXR Cardiac: continue to monitor HR/BP Renal: F/U I&O Infectious Disease: check cultures Gastrointestinal: continue feedings/current rate Endocrine: monitor blood sugar, check HgA1C Hematologic: transfuse if hgb<8.5 Neurologic: PRN Ativan, keep patient comfortable Affect: PRN ativan Prophylaxis: Protonix Disposition: keep in ICU Notes Reviewed: glue wheel operator, renal Discussed with: consultants, case loader operatoraccount support manager - Objective Last 24 Hour Vital Signs Date Time Temp Pulse Resp B/P (MAP) Pulse Ox O2 Delivery O2 Flow Rate FiO2 05/31/17 10:00 108 24 107/68 97 Mechanical Ventilator 60 05/31/17 09:19 106 28 60 05/31/17 09:00 96 16 121/73 95 Mechanical Ventilator 60 05/31/17 08:45 92 121/73 05/31/17 08:00 99.2 92 16 121/73 97 Mechanical Ventilator 60 05/31/17 08:00 50 05/31/17 08:00 89 05/31/17 07:00 87 19 119/73 94 Mechanical Ventilator 60 05/31/17 06:47 91 19 60 05/31/17 06:00 87 15 123/68 96 Mechanical Ventilator 60 05/31/17 05:21 89 17 60 05/31/17 05:00 86 17 106/67 95 Mechanical Ventilator 60 05/31/17 04:00 98.4 87 19 124/75 98 Mechanical Ventilator 60 05/31/17 04:00 60 05/31/17 04:00 87 05/31/17 03:11 84 16 60 05/31/17 03:00 86 15 126/77 99 Mechanical Ventilator 60 05/31/17 02:00 88 19 112/70 96 Mechanical Ventilator 70 05/31/17 01:00 91 16 111/67 95 Mechanical Ventilator 70 05/31/17 01:00 90 18 70 05/31/17 00:00 98.0 85 17 115/69 96 Mechanical Ventilator 70 05/30/17 23:29 92 17 70 05/30/17 23:00 95 18 123/70 96 Mechanical Ventilator 70 05/30/17 22:00 92 18 118/77 97 Mechanical Ventilator 70 05/30/17 21:07 94 17 70 05/30/17 21:00 97 19 135/77 99 Mechanical Ventilator 70 05/30/17 21:00 70 05/30/17 20:53 100 124/77 05/30/17 20:00 100 05/30/17 20:00 98.3 100 18 124/77 100 Mechanical Ventilator 80 05/30/17 19:30 88 20 93/51 100 Mechanical Ventilator 80 05/30/17 19:00 93 18 85/49 100 Mechanical Ventilator 80 05/30/17 18:53 97 16 80 05/30/17 18:00 100 05/30/17 18:00 88 16 114/71 20 Mechanical Ventilator 100 05/30/17 17:07 85 17 80 05/30/17 17:00 87 19 125/70 20 Mechanical Ventilator 100 05/30/17 16:45 80 05/30/17 16:00 98.1 90 19 122/81 97 Mechanical Ventilator 100 05/30/17 16:00 100 05/30/17 16:00 86 05/30/17 15:10 87 17 100 05/30/17 15:00 87 17 133/84 99 Mechanical Ventilator 100 05/30/17 14:00 90 18 92/71 100 Mechanical Ventilator 100 05/30/17 13:10 83 17 100 05/30/17 13:00 85 17 113/72 100 Mechanical Ventilator 100 05/30/17 12:00 81 05/30/17 12:00 98.2 85 19 126/80 100 Mechanical Ventilator 100 05/30/17 12:00 100 05/30/17 11:16 98 19 100 05/30/17 11:00 81 16 143/87 99 Mechanical Ventilator 100 05/30/17 11:00 100 Status: awake Condition: critical HEENT: atraumatic Neck: full ROM Lungs: clear Heart: HR/BP stable, HR/BP unstable Abdomen: soft, non-tender, feeding tube Extremities: no C/C/E Decubiti: location Micro: Microbiology Date/Time Source Procedure Growth Status 05/28/17 11:01 Sputum Gram Stain - Final Complete 05/28/17 11:01 Sputum Sputum Culture - Final NO GROWTH AFTER 48 HOURS Complete Critical Care - Subjective ROS Limited/Unobtainable: No ICU Day: 4 Intubation Day: 4 FI02: 60 Vent Support Breath Rate: 16 Vent Support Mode: AC Vent Tidal Volume: 600 Sputum Amount: Moderate PEEP: 5.0 PIP: 27 Tube Feeding Amount: 30 I&O: Intake and Output 05/30/17 05/31/17 19:00 07:00 Intake Total 1180.0 ml 827.5 ml Output Total 4400 ml 1380 ml Balance -3220.0 ml -552.5 ml Free Water 100 ml IV Total 820.0 ml 367.5 ml Tube Feeding 360 ml 360 ml Output Urine Total 4400 ml 1380 ml # Bowel Movements 1 ET-Tube: 7.5 ET Position: 23 Labs: Laboratory Tests Test 05/31/17 03:45 05/31/17 04:00 White Blood Count 9.9 K/UL (4.8-10.8) Red Blood Count 7.02 M/UL (4.70-6.10) H Hemoglobin 15.3 G/DL (14.2-18.0) Hematocrit 51.4 % (42.0-52.0) Mean Corpuscular Volume 73 FL (80-99) L Mean Corpuscular Hemoglobin 21.7 PG (27.0-31.0) L Mean Corpuscular Hemoglobin Concent 29.7 G/DL (32.0-36.0) L Red Cell Distribution Width 18.0 % (11.6-14.8) H Platelet Count 146 K/UL (150-450) L Mean Platelet Volume 7.2 FL (6.5-10.1) Neutrophils (%) (Auto) % (45.0-75.0) Lymphocytes (%) (Auto) % (20.0-45.0) Monocytes (%) (Auto) % (1.0-10.0) Eosinophils (%) (Auto) % (0.0-3.0) Basophils (%) (Auto) % (0.0-2.0) Differential Total Cells Counted 100 Neutrophils % (Manual) 91 % (45-75) H Lymphocytes % (Manual) 6 % (20-45) L Monocytes % (Manual) 3 % (1-10) Eosinophils % (Manual) 0 % (0-3) Basophils % (Manual) 0 % (0-2) Band Neutrophils 0 % (0-8) Platelet Estimate Adequate Platelet Morphology Normal Hypochromasia 1+ Anisocytosis 1+ Microcytosis 1+ Sodium Level 141 MMOL/L (136-145) Potassium Level 2.5 MMOL/L (3.5-5.1) *L Chloride Level 96 MMOL/L (98-107) L Carbon Dioxide Level 41 MMOL/L (21-32) *H Anion Gap 4 mmol/L (5-15) L Blood Urea Nitrogen 27 mg/dL (7-18) H Creatinine 1.7 MG/DL (0.55-1.30) H Estimat Glomerular Filtration Rate 49.7 mL/min (>60) Glucose Level 102 MG/DL (74-106) Uric Acid 5.9 MG/DL (2.6-7.2) Calcium Level 8.7 MG/DL (8.5-10.1) Phosphorus Level 2.8 MG/DL (2.5-4.9) Magnesium Level 1.9 MG/DL (1.8-2.4) Total Bilirubin 2.9 MG/DL (0.2-1.0) H Direct Bilirubin 1.1 MG/DL (0.0-0.3) H Aspartate Amino Transf (AST/SGOT) 24 U/L (15-37) Alanine Aminotransferase (ALT/SGPT) 17 U/L (12-78) Alkaline Phosphatase 75 U/L (46-116) Pro-B-Type Natriuretic Peptide 5331 pg/mL (0-125) H Total Protein 6.7 G/DL (6.4-8.2) Albumin 2.4 G/DL (3.4-5.0) L Globulin 4.3 g/dL Albumin/Globulin Ratio 0.6 (1.0-2.7) L Urine Eosinophils None seen Troponin I 0.073 ng/mL (0.000-0.056) KEITH CHONG May 31, 2017 10:20
--- NOTE | 2017-05-31 10:40 | Diagnostic Imaging Report ---
Indication: Dyspnea Technique: XRAY Chest 1v Comparison: 05/30/2018 Findings: Interval retraction of the endotracheal tube, tip now above the level of clavicles approximately 9 cm above the . Advancement by 3 to 4 cm is recommended for better to positioning. NG tube courses below level of the diaphragms, tip beyond the inferior margin of the study. Heart size and mediastinal contours are stable. There are patchy bibasilar airspace opacities and probable small left pleural effusion. No pneumothorax. No acute osseous abnormality. Impression: Interval retraction of endotracheal tube. Advancement recommended as above. This is discussed with the treating ICU nurse via telephone conversation to 05/31/17, 10:30 AM. Persistent patchy bilateral lower lung airspace opacities and small left pleural effusion.
--- NOTE | 2017-05-31 11:02 | Infectious Diseases Prog Note ---
Assessment/Plan Assessment/Plan Assessment: Acute hypoxic/hypercapneic resp failure- likely multifacotrial 2ry to COPD/CHF exacerbation and PNA- r/o Influenza -s/p intubation 05/27 -CXR 05/31: Persistent patchy bilateral lower lung airspace opacities and small left pleural effusion. -CTA chest 05/29: Negative for acute pulmonary embolus or other acute thoracic vascular pathology. Pulmonary arterial dilatation, likely indicating chronic pulmonary arterial hypertension. Moderate-sized right and small left pleural effusions. Complete atelectasis and consolidation of both lower lobes. Mild interstitial congestion and hazy groundglass opacity of the aerated portions of the lungs, likely reflecting pulmonary edema. Endotracheal and nasogastric tubes pericardial thickening versus fluid, minimal. Degenerative spondylosis -sp Cx normal fly -CXR 05/28: Improved but persistent parenchymal consolidation or edema, over one day -influenza test p -legionella ag urine neg Low grade fever x1 -no leukocytosis CAITLIN on CKD, improving CHF recent SAM sx (not yet on Bipap) HTN pHTN Mitral regurgitation med non compliance morbid obesity recent R tibial region injury Plan: -Switch Zosyn #6/7-10 to Ceftriaxone given no isolation of resistant organisms -Conitnue Levaquin #4/5 for atypical coverage and empiric Tamiflu #4/5 -monitor QTc -d/c IV Vancomycin #3 given no MRSA isolation -f/u influenza -f/u cx -Monitor CBC/BMP, temperatures -ETT care -aspiration precautions Thank you for this consultation. Will continue to follow along with you. Discussed with RN Subjective Allergies: Coded Allergies: No Known Allergies (Unverified , 07/23/16) Subjective afebrile in 72hrs Fio2 down to 60% no leukocytosis sp cx NF Objective Vital Signs Last 24 Hour Vital Signs Date Time Temp Pulse Resp B/P (MAP) Pulse Ox O2 Delivery O2 Flow Rate FiO2 05/31/17 10:00 108 24 107/68 97 Mechanical Ventilator 60 05/31/17 09:19 106 28 60 05/31/17 09:00 96 16 121/73 95 Mechanical Ventilator 60 05/31/17 08:45 92 121/73 05/31/17 08:00 99.2 92 16 121/73 97 Mechanical Ventilator 60 05/31/17 08:00 50 05/31/17 08:00 89 05/31/17 07:00 87 19 119/73 94 Mechanical Ventilator 60 05/31/17 06:47 91 19 60 05/31/17 06:00 87 15 123/68 96 Mechanical Ventilator 60 05/31/17 05:21 89 17 60 05/31/17 05:00 86 17 106/67 95 Mechanical Ventilator 60 05/31/17 04:00 98.4 87 19 124/75 98 Mechanical Ventilator 60 05/31/17 04:00 60 05/31/17 04:00 87 05/31/17 03:11 84 16 60 05/31/17 03:00 86 15 126/77 99 Mechanical Ventilator 60 05/31/17 02:00 88 19 112/70 96 Mechanical Ventilator 70 05/31/17 01:00 91 16 111/67 95 Mechanical Ventilator 70 05/31/17 01:00 90 18 70 05/31/17 00:00 98.0 85 17 115/69 96 Mechanical Ventilator 70 05/30/17 23:29 92 17 70 05/30/17 23:00 95 18 123/70 96 Mechanical Ventilator 70 05/30/17 22:00 92 18 118/77 97 Mechanical Ventilator 70 05/30/17 21:07 94 17 70 05/30/17 21:00 97 19 135/77 99 Mechanical Ventilator 70 05/30/17 21:00 70 05/30/17 20:53 100 124/77 05/30/17 20:00 100 05/30/17 20:00 98.3 100 18 124/77 100 Mechanical Ventilator 80 05/30/17 19:30 88 20 93/51 100 Mechanical Ventilator 80 05/30/17 19:00 93 18 85/49 100 Mechanical Ventilator 80 05/30/17 18:53 97 16 80 05/30/17 18:00 100 05/30/17 18:00 88 16 114/71 20 Mechanical Ventilator 100 05/30/17 17:07 85 17 80 05/30/17 17:00 87 19 125/70 20 Mechanical Ventilator 100 05/30/17 16:45 80 05/30/17 16:00 98.1 90 19 122/81 97 Mechanical Ventilator 100 05/30/17 16:00 100 05/30/17 16:00 86 05/30/17 15:10 87 17 100 05/30/17 15:00 87 17 133/84 99 Mechanical Ventilator 100 05/30/17 14:00 90 18 92/71 100 Mechanical Ventilator 100 05/30/17 13:10 83 17 100 05/30/17 13:00 85 17 113/72 100 Mechanical Ventilator 100 05/30/17 12:00 81 05/30/17 12:00 98.2 85 19 126/80 100 Mechanical Ventilator 100 05/30/17 12:00 100 05/30/17 11:16 98 19 100 05/30/17 11:00 81 16 143/87 99 Mechanical Ventilator 100 05/30/17 11:00 100 Height (Feet): 5 Height (Inches): 7.00 Weight (Pounds): 245 Objective GENERAL: Shows to be middle-aged gentleman, on a mechanical ventilator, NECK: Supple. LUNGS: Decreased breath sounds noted bilaterally CARDIAC: Regular rate and rhythm. ABDOMEN: Obese. Positive bowel sounds. Nontender. EXTREMITIES: There is edema of the lower extremities bilaterally all the way up to his thigh. NEUROLOGICAL: He is noncommunicative or following any commands. Microbiology Date/Time Source Procedure Growth Status 05/28/17 11:01 Sputum Gram Stain - Final Complete 05/28/17 11:01 Sputum Sputum Culture - Final NO GROWTH AFTER 48 HOURS Complete Laboratory Tests Test 05/31/17 03:45 05/31/17 04:00 05/31/17 10:00 White Blood Count 9.9 K/UL (4.8-10.8) Red Blood Count 7.02 M/UL (4.70-6.10) H Hemoglobin 15.3 G/DL (14.2-18.0) Hematocrit 51.4 % (42.0-52.0) Mean Corpuscular Volume 73 FL (80-99) L Mean Corpuscular Hemoglobin 21.7 PG (27.0-31.0) L Mean Corpuscular Hemoglobin Concent 29.7 G/DL (32.0-36.0) L Red Cell Distribution Width 18.0 % (11.6-14.8) H Platelet Count 146 K/UL (150-450) L Mean Platelet Volume 7.2 FL (6.5-10.1) Neutrophils (%) (Auto) % (45.0-75.0) Lymphocytes (%) (Auto) % (20.0-45.0) Monocytes (%) (Auto) % (1.0-10.0) Eosinophils (%) (Auto) % (0.0-3.0) Basophils (%) (Auto) % (0.0-2.0) Differential Total Cells Counted 100 Neutrophils % (Manual) 91 % (45-75) H Lymphocytes % (Manual) 6 % (20-45) L Monocytes % (Manual) 3 % (1-10) Eosinophils % (Manual) 0 % (0-3) Basophils % (Manual) 0 % (0-2) Band Neutrophils 0 % (0-8) Platelet Estimate Adequate Platelet Morphology Normal Hypochromasia 1+ Anisocytosis 1+ Microcytosis 1+ Sodium Level 141 MMOL/L (136-145) Potassium Level 2.5 MMOL/L (3.5-5.1) *L Chloride Level 96 MMOL/L (98-107) L Carbon Dioxide Level 41 MMOL/L (21-32) *H Anion Gap 4 mmol/L (5-15) L Blood Urea Nitrogen 27 mg/dL (7-18) H Creatinine 1.7 MG/DL (0.55-1.30) H Estimat Glomerular Filtration Rate 49.7 mL/min (>60) Glucose Level 102 MG/DL (74-106) Uric Acid 5.9 MG/DL (2.6-7.2) Calcium Level 8.7 MG/DL (8.5-10.1) Phosphorus Level 2.8 MG/DL (2.5-4.9) Magnesium Level 1.9 MG/DL (1.8-2.4) Total Bilirubin 2.9 MG/DL (0.2-1.0) H Direct Bilirubin 1.1 MG/DL (0.0-0.3) H Aspartate Amino Transf (AST/SGOT) 24 U/L (15-37) Alanine Aminotransferase (ALT/SGPT) 17 U/L (12-78) Alkaline Phosphatase 75 U/L (46-116) Pro-B-Type Natriuretic Peptide 5331 pg/mL (0-125) H Total Protein 6.7 G/DL (6.4-8.2) Albumin 2.4 G/DL (3.4-5.0) L Globulin 4.3 g/dL Albumin/Globulin Ratio 0.6 (1.0-2.7) L Urine Eosinophils None seen Troponin I 0.073 ng/mL (0.000-0.056) Vancomycin Level Trough Pending Current Medications Medications (Trade) Dose Ordered Sig/Judy Route PRN Reason Start Time Stop Time Status Last Admin Dose Admin Acetazolamide (Diamox) 250 mg TWICE A DAY ORAL 05/30/17 18:00 06/29/17 17:59 05/31/17 08:46 Albuterol/ Ipratropium (Albuterol/ Ipratropium) 3 ml Q4H PRN HHN dyspnea 05/27/17 18:30 05/31/17 18:29 Carvedilol (Coreg) 6.25 mg EVERY 12 HOURS ORAL 05/27/17 21:00 06/25/17 20:59 05/31/17 08:45 Dextrose (Dextrose 50%) STAT PRN IV Hypoglycemia 05/27/17 18:30 06/26/17 18:29 Famotidine (Pepcid I.v.) 20 mg Q12HR IVP 05/28/17 21:00 06/27/17 20:59 05/31/17 08:43 Levofloxacin (Levaquin) 750 mg QHS ORAL 05/28/17 21:00 06/04/17 20:59 05/30/17 20:54 Lorazepam (Ativan 2mg/ml 1ml) 2 mg Q4H PRN IV For Anxiety 05/27/17 18:30 06/03/17 14:29 05/29/17 23:18 Morphine Sulfate (Morphine Sulfate) 4 mg Q4H PRN IVP PAIN 4-10 05/27/17 18:30 06/03/17 14:29 05/30/17 00:07 Nitroglycerin (Ntg) 0.4 mg Q5M X 3 DOSES PRN SL Prn Chest Pain 05/27/17 18:30 06/25/17 18:29 Ondansetron HCl (Zofran) 4 mg Q6H PRN IVP Nausea & Vomiting 05/27/17 18:30 06/25/17 18:29 Oseltamivir Phosphate (Tamiflu) 30 mg BID ORAL 05/31/17 09:00 06/02/17 20:59 05/31/17 09:09 Piperacillin Sod/ Tazobactam Sod 3.375 gm/Sodium Chloride 110 ml @ 27.5 mls/hr EVERY 8 HOURS IVPB 05/27/17 22:00 06/05/17 21:59 05/31/17 05:37 Potassium Chloride 50 meq/ Sodium Chloride 575 ml @ 115 mls/hr ONCE ONCE IVPB 05/31/17 11:30 05/31/17 16:29 Potassium Chloride (K-Dur) 40 meq TWICE A DAY ORAL 05/31/17 10:00 06/30/17 09:59 Temazepam (Restoril) 15 mg HSPRN PRN ORAL Insomnia 05/27/17 21:00 06/02/17 20:59 05/29/17 21:05 Theophylline (Frandy-Dur) 100 mg EVERY 12 HOURS ORAL 05/27/17 21:00 06/25/17 20:59 05/31/17 08:44 Vancomycin HCl (Vanco rx to dose) 1 ea DAILY PRN MISC Per rx protocol 05/29/17 09:45 06/28/17 09:44 Vancomycin HCl/ Dextrose 250 ml @ 125 mls/hr Q24H IVPB 05/29/17 11:00 06/03/17 10:59 05/30/17 11:30 Elma Paris M.D. May 31, 2017 11:02
[2017-05-31] MEDS ORDERED: Potassium Chloride 50 MEQ in Sodium Chloride 500ML 550 ML IVPB ONE (11:30)
--- NOTE | 2017-05-31 12:08 | Diagnostic Imaging Report ---
Indication: ET tube advanced Technique: XRAY Chest 1v Comparison: Earlier the same day Findings/ impression: Interval advancement of endotracheal tube, tip now at the level of the clavicles, approximately 6.8 cm above the . Advancement by additional 2 to 3 cm would provide more ideal to positioning. Additional findings unchanged from exam a few hours earlier.
[2017-05-31] MEDS ORDERED: cefTRIAXone 1 GM in D5W 55 ML IVPB SCH (13:30)
[2017-05-31] MEDS: cefTRIAXone 1 GM in NS 55 ML IVPB SCH (13:39)
--- NOTE | 2017-05-31 14:15 | Diagnostic Imaging Report ---
Indication: ET tube advanced Technique: XRAY Chest 1v Comparison: Earlier the same day Findings/impression: Interval advancement of endotracheal tube, tip now below the level of clavicles, approximately 2.5 cm above the . Additional findings unchanged from exam a few hours earlier.
--- NOTE | 2017-05-31 16:12 | Nephrology Progress Note ---
Assessment/Plan Problem List: (1) Respiratory arrest (2) ATN (acute tubular necrosis) (3) HTN (hypertension) (4) ACS (acute coronary syndrome) Assessment remains intubated on vent in ICU - ARF Cr 1.6 - 2.0 - 1.7 - CKD underlying - Fluid overloud - morbid obesity - COPD / CHF / sleep apnea ? - HTN troponin leak Plan K supplement- Diamox UA Keep BP and BS in check Pulmonary support avoid Nephrotoxics slow diuresis 24 h urine protein Subjective ROS Limited/Unobtainable: Yes Objective Objective Last 24 Hour Vital Signs Date Time Temp Pulse Resp B/P (MAP) Pulse Ox O2 Delivery O2 Flow Rate FiO2 05/31/17 14:00 107 18 101/79 98 Mechanical Ventilator 60 05/31/17 13:00 109 17 98/54 99 Mechanical Ventilator 60 05/31/17 12:43 95 18 60 05/31/17 12:00 99.5 93 16 104/66 100 Mechanical Ventilator 60 05/31/17 12:00 60 05/31/17 12:00 100 05/31/17 11:00 101 18 99/67 97 Mechanical Ventilator 60 05/31/17 10:40 97 21 60 05/31/17 10:00 108 24 107/68 97 Mechanical Ventilator 60 05/31/17 09:19 106 28 60 05/31/17 09:00 96 16 121/73 95 Mechanical Ventilator 60 05/31/17 08:45 92 121/73 05/31/17 08:00 99.2 92 16 121/73 97 Mechanical Ventilator 60 05/31/17 08:00 50 05/31/17 08:00 89 05/31/17 07:00 87 19 119/73 94 Mechanical Ventilator 60 05/31/17 06:47 91 19 60 05/31/17 06:00 87 15 123/68 96 Mechanical Ventilator 60 05/31/17 05:21 89 17 60 05/31/17 05:00 86 17 106/67 95 Mechanical Ventilator 60 05/31/17 04:00 98.4 87 19 124/75 98 Mechanical Ventilator 60 05/31/17 04:00 60 05/31/17 04:00 87 05/31/17 03:11 84 16 60 05/31/17 03:00 86 15 126/77 99 Mechanical Ventilator 60 05/31/17 02:00 88 19 112/70 96 Mechanical Ventilator 70 05/31/17 01:00 91 16 111/67 95 Mechanical Ventilator 70 05/31/17 01:00 90 18 70 05/31/17 00:00 98.0 85 17 115/69 96 Mechanical Ventilator 70 05/30/17 23:29 92 17 70 05/30/17 23:00 95 18 123/70 96 Mechanical Ventilator 70 05/30/17 22:00 92 18 118/77 97 Mechanical Ventilator 70 05/30/17 21:07 94 17 70 05/30/17 21:00 97 19 135/77 99 Mechanical Ventilator 70 05/30/17 21:00 70 05/30/17 20:53 100 124/77 05/30/17 20:00 100 05/30/17 20:00 98.3 100 18 124/77 100 Mechanical Ventilator 80 05/30/17 19:30 88 20 93/51 100 Mechanical Ventilator 80 05/30/17 19:00 93 18 85/49 100 Mechanical Ventilator 80 05/30/17 18:53 97 16 80 05/30/17 18:00 100 05/30/17 18:00 88 16 114/71 20 Mechanical Ventilator 100 05/30/17 17:07 85 17 80 05/30/17 17:00 87 19 125/70 20 Mechanical Ventilator 100 05/30/17 16:45 80 Intake and Output 05/30/17 05/31/17 19:00 07:00 Intake Total 1180.0 ml 827.5 ml Output Total 4400 ml 1380 ml Balance -3220.0 ml -552.5 ml Free Water 100 ml IV Total 820.0 ml 367.5 ml Tube Feeding 360 ml 360 ml Output Urine Total 4400 ml 1380 ml # Bowel Movements 1 Laboratory Tests 05/31/17 03:45: White Blood Count 9.9, Red Blood Count 7.02H, Hemoglobin 15.3, Hematocrit 51.4, Mean Corpuscular Volume 73L, Mean Corpuscular Hemoglobin 21.7L, Mean Corpuscular Hemoglobin Concent 29.7L, Red Cell Distribution Width 18.0H, Platelet Count 146L, Mean Platelet Volume 7.2, Neutrophils (%) (Auto) , Lymphocytes (%) (Auto) , Monocytes (%) (Auto) , Eosinophils (%) (Auto) , Basophils (%) (Auto) , Differential Total Cells Counted 100, Neutrophils % ( Manual) 91H, Lymphocytes % (Manual) 6L, Monocytes % (Manual) 3, Eosinophils % ( Manual) 0, Basophils % (Manual) 0, Band Neutrophils 0, Platelet Estimate Adequate, Platelet Morphology Normal, Hypochromasia 1+, Anisocytosis 1+, Microcytosis 1+, Sodium Level 141, Potassium Level 2.5*L, Chloride Level 96L, Carbon Dioxide Level 41*H, Anion Gap 4L, Blood Urea Nitrogen 27H, Creatinine 1.7H, Estimat Glomerular Filtration Rate 49.7, Glucose Level 102, Uric Acid 5.9 , Calcium Level 8.7, Phosphorus Level 2.8, Magnesium Level 1.9, Total Bilirubin 2.9H, Direct Bilirubin 1.1H, Aspartate Amino Transf (AST/SGOT) 24, Alanine Aminotransferase (ALT/SGPT) 17, Alkaline Phosphatase 75, Pro-B-Type Natriuretic Peptide 5331H, Total Protein 6.7, Albumin 2.4L, Globulin 4.3, Albumin/Globulin Ratio 0.6L 05/31/17 04:00: Urine Eosinophils None seen, Troponin I 0.073H 05/31/17 10:00: Vancomycin Level Trough 7.2 05/31/17 10:49: Arterial Blood pH 7.430, Arterial Blood Partial Pressure CO2 61.3*H, Arterial Blood Partial Pressure O2 52.8L, Arterial Blood HCO3 40.1H, Arterial Blood Oxygen Saturation 85.4L, Arterial Blood Base Excess 12.8, [place] Test Positive Height (Feet): 5 Height (Inches): 7.00 Weight (Pounds): 245 General Appearance: no apparent distress Cardiovascular: tachycardia Respiratory/Chest: decreased breath sounds Abdomen: distended Objective no other changes GIOVANNI ARMANDO May 31, 2017 16:12
[2017-05-31] MEDS ORDERED: Tubing IV Secondary IV ONE (17:30)
--- NOTE | 2017-05-31 17:35 | Cardiology Progress Note ---
Assessment/Plan Assessment/Plan 1. Respiratory failure. 2. RV hypokinesis / dilation 3. normal lv systolic function 4. Mitral regurgitation mild 5. Pulmonary hypertension possibly chronic based on pulm arterial dilation and rve dating back to last year 6. Morbid obesity. 7. Systemic hypertension. 8. Renal failure and hyperkalemia 9. Pulm arterial dilation suggestive of chronic pulm htn 10. mixed acid base do , respiratory acidosis and metabolic alkalosis still required 100% oxygen and now on peep as well echo reviewed no shunting by bubble study i reviewed echo done last few day no sig mr lv function seems fine rv is hypokinetic and dilated on echo done last week and limited today also confirmed rv hypo and dialtion the echo from last year reviewed as well MR was not sig then but rve was present at that time as well, ct showed pulm arterial enlargement ctpa noted no PE but may be pericardial effusion of thickening now on lower oxygen i dont see a major cause e of secondary pulm htn related to cardiac function even his diastolic function parameter seem ok i suspect more of a pulm issue as a cause of pulm htn rather a secondary cardiac bp lower now off iv lasix drip diamox beign ordered i agree adn co2 is now in the 40s Subjective Cardiovascular: Denies: chest pain, lightheadedness, palpitations Respiratory: Denies: shortness of breath Genitourinary: Denies: burning Objective Last 24 Hour Vital Signs Date Time Temp Pulse Resp B/P (MAP) Pulse Ox O2 Delivery O2 Flow Rate FiO2 05/31/17 17:00 97 21 97/66 98 Mechanical Ventilator 60 05/31/17 16:00 50 05/31/17 16:00 98.6 95 16 105/70 93 Mechanical Ventilator 60 05/31/17 16:00 96 05/31/17 15:00 109 22 110/74 98 Mechanical Ventilator 60 05/31/17 14:00 107 18 101/79 98 Mechanical Ventilator 60 05/31/17 13:00 109 17 98/54 99 Mechanical Ventilator 60 05/31/17 12:43 95 18 60 05/31/17 12:00 99.5 93 16 104/66 100 Mechanical Ventilator 60 05/31/17 12:00 60 05/31/17 12:00 100 05/31/17 11:00 101 18 99/67 97 Mechanical Ventilator 60 05/31/17 10:40 97 21 60 05/31/17 10:00 108 24 107/68 97 Mechanical Ventilator 60 05/31/17 09:19 106 28 60 05/31/17 09:00 96 16 121/73 95 Mechanical Ventilator 60 05/31/17 08:45 92 121/73 05/31/17 08:00 99.2 92 16 121/73 97 Mechanical Ventilator 60 05/31/17 08:00 50 05/31/17 08:00 89 05/31/17 07:00 87 19 119/73 94 Mechanical Ventilator 60 05/31/17 06:47 91 19 60 05/31/17 06:00 87 15 123/68 96 Mechanical Ventilator 60 05/31/17 05:21 89 17 60 05/31/17 05:00 86 17 106/67 95 Mechanical Ventilator 60 05/31/17 04:00 98.4 87 19 124/75 98 Mechanical Ventilator 60 05/31/17 04:00 60 05/31/17 04:00 87 05/31/17 03:11 84 16 60 05/31/17 03:00 86 15 126/77 99 Mechanical Ventilator 60 05/31/17 02:00 88 19 112/70 96 Mechanical Ventilator 70 05/31/17 01:00 91 16 111/67 95 Mechanical Ventilator 70 05/31/17 01:00 90 18 70 05/31/17 00:00 98.0 85 17 115/69 96 Mechanical Ventilator 70 05/30/17 23:29 92 17 70 05/30/17 23:00 95 18 123/70 96 Mechanical Ventilator 70 05/30/17 22:00 92 18 118/77 97 Mechanical Ventilator 70 05/30/17 21:07 94 17 70 05/30/17 21:00 97 19 135/77 99 Mechanical Ventilator 70 05/30/17 21:00 70 05/30/17 20:53 100 124/77 05/30/17 20:00 100 05/30/17 20:00 98.3 100 18 124/77 100 Mechanical Ventilator 80 05/30/17 19:30 88 20 93/51 100 Mechanical Ventilator 80 05/30/17 19:00 93 18 85/49 100 Mechanical Ventilator 80 05/30/17 18:53 97 16 80 05/30/17 18:00 100 05/30/17 18:00 88 16 114/71 20 Mechanical Ventilator 100 General Appearance: alert Neck: supple Cardiovascular: normal rate, regular rhythm Respiratory/Chest: lungs clear, normal breath sounds Abdomen: normal bowel sounds, non tender, soft Extremities: no swelling Intake and Output 05/30/17 05/31/17 19:00 07:00 Intake Total 1180.0 ml 827.5 ml Output Total 4400 ml 1380 ml Balance -3220.0 ml -552.5 ml Free Water 100 ml IV Total 820.0 ml 367.5 ml Tube Feeding 360 ml 360 ml Output Urine Total 4400 ml 1380 ml # Bowel Movements 1 Laboratory Tests Test 05/31/17 03:45 05/31/17 04:00 05/31/17 10:00 05/31/17 10:49 White Blood Count 9.9 K/UL (4.8-10.8) Red Blood Count 7.02 M/UL (4.70-6.10) H Hemoglobin 15.3 G/DL (14.2-18.0) Hematocrit 51.4 % (42.0-52.0) Mean Corpuscular Volume 73 FL (80-99) L Mean Corpuscular Hemoglobin 21.7 PG (27.0-31.0) L Mean Corpuscular Hemoglobin Concent 29.7 G/DL (32.0-36.0) L Red Cell Distribution Width 18.0 % (11.6-14.8) H Platelet Count 146 K/UL (150-450) L Mean Platelet Volume 7.2 FL (6.5-10.1) Neutrophils (%) (Auto) % (45.0-75.0) Lymphocytes (%) (Auto) % (20.0-45.0) Monocytes (%) (Auto) % (1.0-10.0) Eosinophils (%) (Auto) % (0.0-3.0) Basophils (%) (Auto) % (0.0-2.0) Differential Total Cells Counted 100 Neutrophils % (Manual) 91 % (45-75) H Lymphocytes % (Manual) 6 % (20-45) L Monocytes % (Manual) 3 % (1-10) Eosinophils % (Manual) 0 % (0-3) Basophils % (Manual) 0 % (0-2) Band Neutrophils 0 % (0-8) Platelet Estimate Adequate Platelet Morphology Normal Hypochromasia 1+ Anisocytosis 1+ Microcytosis 1+ Sodium Level 141 MMOL/L (136-145) Potassium Level 2.5 MMOL/L (3.5-5.1) *L Chloride Level 96 MMOL/L (98-107) L Carbon Dioxide Level 41 MMOL/L (21-32) *H Anion Gap 4 mmol/L (5-15) L Blood Urea Nitrogen 27 mg/dL (7-18) H Creatinine 1.7 MG/DL (0.55-1.30) H Estimat Glomerular Filtration Rate 49.7 mL/min (>60) Glucose Level 102 MG/DL (74-106) Uric Acid 5.9 MG/DL (2.6-7.2) Calcium Level 8.7 MG/DL (8.5-10.1) Phosphorus Level 2.8 MG/DL (2.5-4.9) Magnesium Level 1.9 MG/DL (1.8-2.4) Total Bilirubin 2.9 MG/DL (0.2-1.0) H Direct Bilirubin 1.1 MG/DL (0.0-0.3) H Aspartate Amino Transf (AST/SGOT) 24 U/L (15-37) Alanine Aminotransferase (ALT/SGPT) 17 U/L (12-78) Alkaline Phosphatase 75 U/L (46-116) Pro-B-Type Natriuretic Peptide 5331 pg/mL (0-125) H Total Protein 6.7 G/DL (6.4-8.2) Albumin 2.4 G/DL (3.4-5.0) L Globulin 4.3 g/dL Albumin/Globulin Ratio 0.6 (1.0-2.7) L Urine Eosinophils None seen Troponin I 0.073 ng/mL (0.000-0.056) Vancomycin Level Trough 7.2 ug/mL (5.0-12.0) Arterial Blood pH 7.430 (7.350-7.450) Arterial Blood Partial Pressure CO2 61.3 mmHg (35.0-45.0) *H Arterial Blood Partial Pressure O2 52.8 mmHg (75.0-100.0) L Arterial Blood HCO3 40.1 mmol/L (22.0-26.0) H Arterial Blood Oxygen Saturation 85.4 % (92.0-98.0) L Arterial Blood Base Excess 12.8 [place] Test Positive ABHISHEK BYRD 1, 2018 17:35
[2017-05-31] MEDS ORDERED: Levofloxacin 500mg tab ONE (20:37)
[2017-06-01] VITALS (24 sets, daily range): BP systolic 95–136; BP diastolic 54–93
[2017-06-01 06:06] LABS: BASOPHILS % (AUTO) 0.2 % (0.0-2.0); EOSINOPHILS % (AUTO) 1.9 % (0.0-3.0); HEMATOCRIT 50.5 % (42.0-52.0); HEMOGLOBIN 14.8 G/DL (14.2-18.0); LYMPHOCYTES % (AUTO) 5.6 % (20.0-45.0); MEAN CORPUSCULAR VOLUME 74 FL (80-99); MONOCYTES % (AUTO) 11.1 % (1.0-10.0); NEUTROPHILS % (AUTO) 81.3 % (45.0-75.0); PLATELET COUNT 145 K/UL (150-450); RED BLOOD COUNT 6.84 M/UL (4.70-6.10); RED CELL DISTRIBUTION WIDTH 18.6 % (11.6-14.8); WHITE BLOOD COUNT 8.8 K/UL (4.8-10.8)
[2017-06-01 06:31] LABS: ALANINE AMINOTRANSFERASE 15 U/L (12-78); ALBUMIN 2.2 G/DL (3.4-5.0); ALBUMIN/GLOBULIN RATIO 0.5 (1.0-2.7); ALKALINE PHOSPHATASE 74 U/L (46-116); ANION GAP 6 mmol/L (5-15); ASPARTATE AMINO TRANSFERASE 21 U/L (15-37); BILIRUBIN,TOTAL 1.9 MG/DL (0.2-1.0); BLOOD UREA NITROGEN 38 mg/dL (7-18); CALCIUM 8.7 MG/DL (8.5-10.1); CARBON DIOXIDE 36 MMOL/L (21-32); CHLORIDE 101 MMOL/L (98-107); CREATININE 1.7 MG/DL (0.55-1.30); PHOSPHORUS 2.9 MG/DL (2.5-4.9); POTASSIUM 3.4 MMOL/L (3.5-5.1); SODIUM 142 MMOL/L (136-145)
[2017-06-01 06:33] LABS: BILIRUBIN,DIRECT 0.8 MG/DL (0.0-0.3)
[2017-06-01] MEDS: Carvedilol 6.25mg Tab ORAL SCH ×2 (08:55→20:53)
[2017-06-01] MEDS: Theophylline ER 100mg ORAL SCH ×2 (08:55→20:52)
--- NOTE | 2017-06-01 10:40 | Nephrology Progress Note ---
Assessment/Plan Problem List: (1) ATN (acute tubular necrosis) (2) COPD exacerbation (3) HTN (hypertension) (4) Hypokalemia Plan Replete K abxs Resp treatments wean as tolerated Discussed with RN follow BMP Subjective Subjective Intubated Objective Objective Last 24 Hour Vital Signs Date Time Temp Pulse Resp B/P (MAP) Pulse Ox O2 Delivery O2 Flow Rate FiO2 06/01/17 10:00 74 17 117/79 100 Mechanical Ventilator 60 06/01/17 09:00 72 17 104/71 100 Mechanical Ventilator 60 06/01/17 08:55 72 125/71 18 08:47 71 18 50 /18 08:00 98.4 71 17 125/71 97 Mechanical Ventilator 60 06/01/17 08:00 68 06/01/17 07:35 60 06/01/17 07:00 73 18 50 /18 07:00 74 17 132/82 100 Mechanical Ventilator 60 06/01/17 06:08 78 18 50 06/01/17 06:00 74 17 116/77 100 Mechanical Ventilator 60 06/01/17 05:00 69 16 113/78 100 Mechanical Ventilator 60 06/01/17 04:00 60 06/01/17 04:00 98.9 69 16 108/60 100 Mechanical Ventilator 60 06/01/17 04:00 69 06/01/17 03:51 70 16 50 18 03:00 75 16 95/54 100 Mechanical Ventilator 60 06/01/17 02:00 77 16 99/61 100 Mechanical Ventilator 60 06/01/17 01:24 87 18 50 218 01:00 84 21 115/79 100 Mechanical Ventilator 60 06/01/17 00:00 60 18 00:00 98.4 79 17 112/76 100 Mechanical Ventilator 60 18 00:00 79 05/31/17 23:00 79 18 103/69 100 Mechanical Ventilator 60 05/31/17 22:59 82 18 50 05/31/17 22:00 81 17 96/63 100 Mechanical Ventilator 60 05/31/17 21:00 82 22 136/88 100 Mechanical Ventilator 60 05/31/17 21:00 88 18 50 05/31/17 20:55 86 123/82 05/31/17 20:00 86 05/31/17 20:00 60 05/31/17 20:00 99.1 83 18 123/82 100 Mechanical Ventilator 60 05/31/17 19:34 60 05/31/17 19:32 106 17 50 05/31/17 19:00 109 17 109/74 100 Mechanical Ventilator 50 05/31/17 18:00 97 19 97/66 75 Mechanical Ventilator 50 05/31/17 17:15 96 18 60 05/31/17 17:00 97 21 97/66 98 Mechanical Ventilator 60 05/31/17 16:00 50 05/31/17 16:00 98.6 95 16 105/70 93 Mechanical Ventilator 60 05/31/17 16:00 96 05/31/17 15:10 95 18 60 05/31/17 15:00 109 22 110/74 98 Mechanical Ventilator 60 05/31/17 14:00 107 18 101/79 98 Mechanical Ventilator 60 05/31/17 13:00 109 17 98/54 99 Mechanical Ventilator 60 05/31/17 12:43 95 18 60 05/31/17 12:00 99.5 93 16 104/66 100 Mechanical Ventilator 60 05/31/17 12:00 60 05/31/17 12:00 100 05/31/17 11:00 101 18 99/67 97 Mechanical Ventilator 60 05/31/17 10:40 97 21 60 Intake and Output 05/31/17 06/01/17 19:00 07:00 Intake Total 1160.0 ml 410 ml Output Total 1140 ml 890 ml Balance 20.0 ml -480 ml Free Water 50 ml IV Total 800.0 ml Tube Feeding 360 ml 360 ml Output Urine Total 1140 ml 890 ml # Bowel Movements 3 3 Laboratory Tests 05/31/17 10:49: Arterial Blood pH 7.430, Arterial Blood Partial Pressure CO2 61.3*H, Arterial Blood Partial Pressure O2 52.8L, Arterial Blood HCO3 40.1H, Arterial Blood Oxygen Saturation 85.4L, Arterial Blood Base Excess 12.8, [place] Test Positive 06/01/17 04:30: White Blood Count 8.8, Red Blood Count 6.84H, Hemoglobin 14.8, Hematocrit 50.5, Mean Corpuscular Volume 74L, Mean Corpuscular Hemoglobin 21.6L, Mean Corpuscular Hemoglobin Concent 29.2L, Red Cell Distribution Width 18.6H, Platelet Count 145L, Mean Platelet Volume 8.7, Neutrophils (%) (Auto) 81.3H, Lymphocytes (%) (Auto) 5.6L, Monocytes (%) (Auto) 11.1H, Eosinophils (%) (Auto) 1.9, Basophils (%) (Auto) 0.2, Sodium Level 142, Potassium Level 3.4L, Chloride Level 101, Carbon Dioxide Level 36H, Anion Gap 6, Blood Urea Nitrogen 38H, Creatinine 1.7H, Estimat Glomerular Filtration Rate 49.7, Glucose Level 80, Calcium Level 8.7, Phosphorus Level 2.9, Magnesium Level 2.1, Total Bilirubin 1.9H, Direct Bilirubin 0.8H, Aspartate Amino Transf (AST/SGOT) 21, Alanine Aminotransferase (ALT/SGPT) 15, Alkaline Phosphatase 74, Total Protein 6.6, Albumin 2.2L, Globulin 4.4, Albumin/Globulin Ratio 0.5L 06/01/17 09:05: Arterial Blood pH 7.367, Arterial Blood Partial Pressure CO2 54.7H, Arterial Blood Partial Pressure O2 62.2L, Arterial Blood HCO3 30.7H, Arterial Blood Oxygen Saturation 89.7L, Arterial Blood Base Excess 3.9, [place] Test Positive Height (Feet): 5 Height (Inches): 7.00 Weight (Pounds): 251 Cardiovascular: normal rate Respiratory/Chest: lungs clear Extremities: other - no edema BEE BAUTISTA Jun 01, 2017 10:40
--- NOTE | 2017-06-01 11:20 | Pulmonolgy Critical Care Note ---
Critical Care - Asmt/Plan Problems: (1) Respiratory arrest (2) COPD exacerbation (3) HTN (hypertension) (4) CHF (congestive heart failure) (5) ATN (acute tubular necrosis) Assessment/Plan: CT agnio was negative for pulmonary emboli. showed pulmonary edema and effusion , off lasix drip. 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 manager - Objective Last 24 Hour Vital Signs Date Time Temp Pulse Resp B/P (MAP) Pulse Ox O2 Delivery O2 Flow Rate FiO2 06/01/17 11:00 82 24 117/78 100 Mechanical Ventilator 40 218 10:52 74 19 40 2/2/18 10:50 98 2/2/18 10:45 74 20 40 2/2/18 10:00 74 17 117/79 100 Mechanical Ventilator 60 2/2/18 09:00 72 17 104/71 100 Mechanical Ventilator 60 2/2/18 08:55 72 125/71 2/2/18 08:47 71 18 50 2/2/18 08:00 98.4 71 17 125/71 97 Mechanical Ventilator 60 2/2/18 08:00 68 /2/18 07:35 60 2/2/18 07:00 73 18 50 2/2/18 07:00 74 17 132/82 100 Mechanical Ventilator 60 2/2/18 06:08 78 18 50 2/2/18 06:00 74 17 116/77 100 Mechanical Ventilator 60 2/2/18 05:00 69 16 113/78 100 Mechanical Ventilator 60 2/2/18 04:00 60 2/2/18 04:00 98.9 69 16 108/60 100 Mechanical Ventilator 60 2/2/18 04:00 69 2/2/18 03:51 70 16 50 2/2/18 03:00 75 16 95/54 100 Mechanical Ventilator 60 2/2/18 02:00 77 16 99/61 100 Mechanical Ventilator 60 2/2/18 01:24 87 18 50 06/01/17 01:00 84 21 115/79 100 Mechanical Ventilator 60 06/01/17 00:00 60 06/01/17 00:00 98.4 79 17 112/76 100 Mechanical Ventilator 60 06/01/17 00:00 79 05/31/17 23:00 79 18 103/69 100 Mechanical Ventilator 60 05/31/17 22:59 82 18 50 05/31/17 22:00 81 17 96/63 100 Mechanical Ventilator 60 05/31/17 21:00 82 22 136/88 100 Mechanical Ventilator 60 05/31/17 21:00 88 18 50 05/31/17 20:55 86 123/82 05/31/17 20:00 86 05/31/17 20:00 60 05/31/17 20:00 99.1 83 18 123/82 100 Mechanical Ventilator 60 05/31/17 19:34 60 05/31/17 19:32 106 17 50 05/31/17 19:00 109 17 109/74 100 Mechanical Ventilator 50 05/31/17 18:00 97 19 97/66 75 Mechanical Ventilator 50 05/31/17 17:15 96 18 60 05/31/17 17:00 97 21 97/66 98 Mechanical Ventilator 60 05/31/17 16:00 50 05/31/17 16:00 98.6 95 16 105/70 93 Mechanical Ventilator 60 05/31/17 16:00 96 05/31/17 15:10 95 18 60 05/31/17 15:00 109 22 110/74 98 Mechanical Ventilator 60 05/31/17 14:00 107 18 101/79 98 Mechanical Ventilator 60 05/31/17 13:00 109 17 98/54 99 Mechanical Ventilator 60 05/31/17 12:43 95 18 60 05/31/17 12:00 99.5 93 16 104/66 100 Mechanical Ventilator 60 05/31/17 12:00 60 05/31/17 12:00 100 Status: awake Condition: critical HEENT: atraumatic Lungs: clear Heart: HR/BP stable, regular Abdomen: soft, active bowel sounds Extremities: edema Critical Care - Subjective ROS Limited/Unobtainable: No ICU Day: 4 Intubation Day: 4 Interval Events: diuresed 13 liters so far Condition: critical EKG Rhythm: Sinus Bradycardia FI02: 40 Vent Support Breath Rate: 16 Vent Support Mode: CPAP Vent Tidal Volume: 600 Sputum Amount: None PEEP: 5.0 PIP: 17 Tube Feeding Amount: 30 I&O: Intake and Output 05/31/17 06/01/17 19:00 07:00 Intake Total 1160.0 ml 410 ml Output Total 1140 ml 890 ml Balance 20.0 ml -480 ml Free Water 50 ml IV Total 800.0 ml Tube Feeding 360 ml 360 ml Output Urine Total 1140 ml 890 ml # Bowel Movements 3 3 CXR: slight improvement ET-Tube: 7.5 ET Position: 28 Labs: Laboratory Tests Test 06/01/17 04:30 06/01/17 09:05 White Blood Count 8.8 K/UL (4.8-10.8) Red Blood Count 6.84 M/UL (4.70-6.10) H Hemoglobin 14.8 G/DL (14.2-18.0) Hematocrit 50.5 % (42.0-52.0) Mean Corpuscular Volume 74 FL (80-99) L Mean Corpuscular Hemoglobin 21.6 PG (27.0-31.0) L Mean Corpuscular Hemoglobin Concent 29.2 G/DL (32.0-36.0) L Red Cell Distribution Width 18.6 % (11.6-14.8) H Platelet Count 145 K/UL (150-450) L Mean Platelet Volume 8.7 FL (6.5-10.1) Neutrophils (%) (Auto) 81.3 % (45.0-75.0) H Lymphocytes (%) (Auto) 5.6 % (20.0-45.0) L Monocytes (%) (Auto) 11.1 % (1.0-10.0) H Eosinophils (%) (Auto) 1.9 % (0.0-3.0) Basophils (%) (Auto) 0.2 % (0.0-2.0) Sodium Level 142 MMOL/L (136-145) Potassium Level 3.4 MMOL/L (3.5-5.1) L Chloride Level 101 MMOL/L (98-107) Carbon Dioxide Level 36 MMOL/L (21-32) H Anion Gap 6 mmol/L (5-15) Blood Urea Nitrogen 38 mg/dL (7-18) H Creatinine 1.7 MG/DL (0.55-1.30) H Estimat Glomerular Filtration Rate 49.7 mL/min (>60) Glucose Level 80 MG/DL (74-106) Calcium Level 8.7 MG/DL (8.5-10.1) Phosphorus Level 2.9 MG/DL (2.5-4.9) Magnesium Level 2.1 MG/DL (1.8-2.4) Total Bilirubin 1.9 MG/DL (0.2-1.0) H Direct Bilirubin 0.8 MG/DL (0.0-0.3) H Aspartate Amino Transf (AST/SGOT) 21 U/L (15-37) Alanine Aminotransferase (ALT/SGPT) 15 U/L (12-78) Alkaline Phosphatase 74 U/L (46-116) Total Protein 6.6 G/DL (6.4-8.2) Albumin 2.2 G/DL (3.4-5.0) L Globulin 4.4 g/dL Albumin/Globulin Ratio 0.5 (1.0-2.7) L Arterial Blood pH 7.367 (7.350-7.450) Arterial Blood Partial Pressure CO2 54.7 mmHg (35.0-45.0) H Arterial Blood Partial Pressure O2 62.2 mmHg (75.0-100.0) L Arterial Blood HCO3 30.7 mmol/L (22.0-26.0) H Arterial Blood Oxygen Saturation 89.7 % (92.0-98.0) L Arterial Blood Base Excess 3.9 [place] Test Positive KEITH CHONG Jun 01, 2017 11:20
[2017-06-01] MEDS: cefTRIAXone 1 GM in NS 55 ML IVPB SCH (13:55)
--- NOTE | 2017-06-01 14:17 | Diagnostic Imaging Report ---
Indication: Dyspnea Comparison: May 31, 2017 A single view chest radiograph was obtained. Findings: The heart is enlarged. Pulmonary vascularity is prominent interstitial densities. Tubes and lines are stable. IMPRESSION: No change. CHF
--- NOTE | 2017-06-01 15:02 | Infectious Diseases Prog Note ---
Assessment/Plan Assessment/Plan Assessment: Acute hypoxic/hypercapneic resp failure- likely multifacotrial 2ry to COPD/CHF exacerbation and PNA- r/o Influenza -s/p intubation 05/27; extubated 06/01 -CXR 05/31: Persistent patchy bilateral lower lung airspace opacities and small left pleural effusion. -CTA chest 05/29: Negative for acute pulmonary embolus or other acute thoracic vascular pathology. Pulmonary arterial dilatation, likely indicating chronic pulmonary arterial hypertension. Moderate-sized right and small left pleural effusions. Complete atelectasis and consolidation of both lower lobes. Mild interstitial congestion and hazy groundglass opacity of the aerated portions of the lungs, likely reflecting pulmonary edema. Endotracheal and nasogastric tubes pericardial thickening versus fluid, minimal. Degenerative spondylosis -sp Cx normal fly -CXR 05/28: Improved but persistent parenchymal consolidation or edema, over one day -influenza test p -legionella ag urine neg Low grade fever x1 -no leukocytosis CAITLIN on CKD, improving CHF recent SAM sx (not yet on Bipap) HTN pHTN Mitral regurgitation med non compliance morbid obesity recent R tibial region injury Plan: -Continue Ceftriaxone abx d# 7/7-10 given no isolation of resistant organisms -05/31 SP Zosyn #6, IV Vanco #3 -Conitnue Levaquin #5/5 for atypical coverage and empiric Tamiflu #5/5 -monitor QTc -f/u influenza -f/u cx -Monitor CBC/BMP, temperatures -ETT care -aspiration precautions Thank you for this consultation. Will continue to follow along with you. Discussed with RN Subjective Allergies: Coded Allergies: No Known Allergies (Unverified , 07/23/16) Subjective afebrile no leukocytosis extubated today, now on Bipap sp cx normal fly Objective Vital Signs Last 24 Hour Vital Signs Date Time Temp Pulse Resp B/P (MAP) Pulse Ox O2 Delivery O2 Flow Rate FiO2 06/01/17 14:34 86 29 100 Facial 40 06/01/17 14:00 80 27 117/83 98 Mechanical Ventilator 40 06/01/17 13:28 86 26 95 Facial 40 06/01/17 13:00 86 26 113/77 94 Mechanical Ventilator 40 06/01/17 12:26 87 22 95 Facial 40 06/01/17 12:15 Bi-pap 40 2/2/18 12:00 98.0 81 21 117/75 100 Mechanical Ventilator 60 2/2/18 12:00 40 2/2/18 12:00 75 2/2/18 11:00 82 24 117/78 100 Mechanical Ventilator 40 2/2/18 10:52 74 19 40 2/2/18 10:50 98 2/2/18 10:45 74 20 40 2/2/18 10:00 74 17 117/79 100 Mechanical Ventilator 60 2/2/18 09:00 72 17 104/71 100 Mechanical Ventilator 60 2/2/18 08:55 72 125/71 2/2/18 08:47 71 18 50 2/2/18 08:00 98.4 71 17 125/71 97 Mechanical Ventilator 60 2/2/18 08:00 68 2/2/18 07:35 60 2/2/18 07:00 73 18 50 2/2/18 07:00 74 17 132/82 100 Mechanical Ventilator 60 2/2/18 06:08 78 18 50 2/2/18 06:00 74 17 116/77 100 Mechanical Ventilator 60 2/2/18 05:00 69 16 113/78 100 Mechanical Ventilator 60 2/2/18 04:00 60 2/2/18 04:00 98.9 69 16 108/60 100 Mechanical Ventilator 60 2/2/18 04:00 69 2/2/18 03:51 70 16 50 2/2/18 03:00 75 16 95/54 100 Mechanical Ventilator 60 2/2/18 02:00 77 16 99/61 100 Mechanical Ventilator 60 2/2/18 01:24 87 18 50 2/2/18 01:00 84 21 115/79 100 Mechanical Ventilator 60 2/2/18 00:00 60 2/2/18 00:00 98.4 79 17 112/76 100 Mechanical Ventilator 60 2/2/18 00:00 79 2/1/18 23:00 79 18 103/69 100 Mechanical Ventilator 60 2/1/18 22:59 82 18 50 2/1/18 22:00 81 17 96/63 100 Mechanical Ventilator 60 2/1/18 21:00 82 22 136/88 100 Mechanical Ventilator 60 2/1/18 21:00 88 18 50 2/1/18 20:55 86 123/82 2/1/18 20:00 86 2/1/18 20:00 60 2/1/18 20:00 99.1 83 18 123/82 100 Mechanical Ventilator 60 05/31/17 19:34 60 05/31/17 19:32 106 17 50 05/31/17 19:00 109 17 109/74 100 Mechanical Ventilator 50 05/31/17 18:00 97 19 97/66 75 Mechanical Ventilator 50 05/31/17 17:15 96 18 60 05/31/17 17:00 97 21 97/66 98 Mechanical Ventilator 60 05/31/17 16:00 50 05/31/17 16:00 98.6 95 16 105/70 93 Mechanical Ventilator 60 05/31/17 16:00 96 05/31/17 15:10 95 18 60 05/31/17 15:00 109 22 110/74 98 Mechanical Ventilator 60 Height (Feet): 5 Height (Inches): 7.00 Weight (Pounds): 251 Objective GENERAL: Shows to be middle-aged gentleman, on bipap NECK: Supple. LUNGS: Decreased breath sounds noted bilaterally CARDIAC: Regular rate and rhythm. ABDOMEN: Obese. Positive bowel sounds. Nontender. EXTREMITIES: +edema SKIN: no rashes Laboratory Tests Test 06/01/17 04:30 06/01/17 09:05 06/01/17 11:35 White Blood Count 8.8 K/UL (4.8-10.8) Red Blood Count 6.84 M/UL (4.70-6.10) H Hemoglobin 14.8 G/DL (14.2-18.0) Hematocrit 50.5 % (42.0-52.0) Mean Corpuscular Volume 74 FL (80-99) L Mean Corpuscular Hemoglobin 21.6 PG (27.0-31.0) L Mean Corpuscular Hemoglobin Concent 29.2 G/DL (32.0-36.0) L Red Cell Distribution Width 18.6 % (11.6-14.8) H Platelet Count 145 K/UL (150-450) L Mean Platelet Volume 8.7 FL (6.5-10.1) Neutrophils (%) (Auto) 81.3 % (45.0-75.0) H Lymphocytes (%) (Auto) 5.6 % (20.0-45.0) L Monocytes (%) (Auto) 11.1 % (1.0-10.0) H Eosinophils (%) (Auto) 1.9 % (0.0-3.0) Basophils (%) (Auto) 0.2 % (0.0-2.0) Sodium Level 142 MMOL/L (136-145) Potassium Level 3.4 MMOL/L (3.5-5.1) L Chloride Level 101 MMOL/L (98-107) Carbon Dioxide Level 36 MMOL/L (21-32) H Anion Gap 6 mmol/L (5-15) Blood Urea Nitrogen 38 mg/dL (7-18) H Creatinine 1.7 MG/DL (0.55-1.30) H Estimat Glomerular Filtration Rate 49.7 mL/min (>60) Glucose Level 80 MG/DL (74-106) Calcium Level 8.7 MG/DL (8.5-10.1) Phosphorus Level 2.9 MG/DL (2.5-4.9) Magnesium Level 2.1 MG/DL (1.8-2.4) Total Bilirubin 1.9 MG/DL (0.2-1.0) H Direct Bilirubin 0.8 MG/DL (0.0-0.3) H Aspartate Amino Transf (AST/SGOT) 21 U/L (15-37) Alanine Aminotransferase (ALT/SGPT) 15 U/L (12-78) Alkaline Phosphatase 74 U/L (46-116) Total Protein 6.6 G/DL (6.4-8.2) Albumin 2.2 G/DL (3.4-5.0) L Globulin 4.4 g/dL Albumin/Globulin Ratio 0.5 (1.0-2.7) L Arterial Blood pH 7.367 (7.350-7.450) 7.367 (7.350-7.450) Arterial Blood Partial Pressure CO2 54.7 mmHg (35.0-45.0) H 57.5 mmHg (35.0-45.0) *H Arterial Blood Partial Pressure O2 62.2 mmHg (75.0-100.0) L 61.6 mmHg (75.0-100.0) L Arterial Blood HCO3 30.7 mmol/L (22.0-26.0) H 32.3 mmol/L (22.0-26.0) H Arterial Blood Oxygen Saturation 89.7 % (92.0-98.0) L 89.9 % (92.0-98.0) L Arterial Blood Base Excess 3.9 5.1 [place] Test Positive Positive Current Medications Medications (Trade) Dose Ordered Sig/Judy Route PRN Reason Start Time Stop Time Status Last Admin Dose Admin Acetazolamide (Diamox) 250 mg TWICE A DAY ORAL 05/30/17 18:00 06/29/17 17:59 05/31/17 20:56 Carvedilol (Coreg) 6.25 mg EVERY 12 HOURS ORAL 05/27/17 21:00 06/25/17 20:59 06/01/17 08:55 Ceftriaxone Sodium 1 gm/ Sodium Chloride 55 ml @ 110 mls/hr Q24H IVPB 05/31/17 13:30 06/07/17 13:29 06/01/17 13:55 Dextrose (Dextrose 50%) STAT PRN IV Hypoglycemia 05/27/17 18:30 06/26/17 18:29 Famotidine (Pepcid I.v.) 20 mg Q12HR IVP 05/28/17 21:00 06/27/17 20:59 06/01/17 08:55 Levofloxacin (Levaquin) 750 mg QHS ORAL 05/28/17 21:00 06/04/17 20:59 05/31/17 20:55 Lorazepam (Ativan 2mg/ml 1ml) 2 mg Q4H PRN IV For Anxiety 05/27/17 18:30 06/03/17 14:29 05/29/17 23:18 Morphine Sulfate (Morphine Sulfate) 4 mg Q4H PRN IVP PAIN 4-10 05/27/17 18:30 06/03/17 14:29 05/30/17 00:07 Nitroglycerin (Ntg) 0.4 mg Q5M X 3 DOSES PRN SL Prn Chest Pain 05/27/17 18:30 06/25/17 18:29 Ondansetron HCl (Zofran) 4 mg Q6H PRN IVP Nausea & Vomiting 05/27/17 18:30 06/25/17 18:29 Oseltamivir Phosphate (Tamiflu) 30 mg BID ORAL 05/31/17 09:00 06/02/17 20:59 06/01/17 08:59 Potassium Chloride (K-Dur) 40 meq TWICE A DAY ORAL 05/31/17 10:00 06/30/17 09:59 06/01/17 08:55 Temazepam (Restoril) 15 mg HSPRN PRN ORAL Insomnia 05/27/17 21:00 06/02/17 20:59 05/29/17 21:05 Theophylline (Frandy-Dur) 100 mg EVERY 12 HOURS ORAL 05/27/17 21:00 06/25/17 20:59 06/01/17 08:55 Elma Paris M.D. Jun 01, 2017 15:02
--- NOTE | 2017-06-01 17:26 | Cardiology Progress Note ---
Assessment/Plan Assessment/Plan 1. Respiratory failure. 2. RV hypokinesis / dilation 3. normal lv systolic function 4. Mitral regurgitation mild 5. Pulmonary hypertension possibly chronic 6. Morbid obesity. 7. Systemic hypertension. 8. Renal failure and hyperkalemia extubated on bipap oxygenation better echo reviewed no shunting by bubble study i reviewed echo done last few day no sig mr lv function seems fine rv is hypokinetic and dilated on echo done last week and limited today also confirmed rv hypo and dialtion ctpa noted no PE but may be pericardial effusion of thickening now on lower oxygen i dont see a major cause e of secondary pulm htn related to cardiac function even his diastolic function parameter seem ok i suspect more of a pulm issue as a cause of pulm htn rather a secondary cardiac s/p diuretics Subjective ROS Limited/Unobtainable: Yes Cardiovascular: Denies: chest pain, irregular heart rate Respiratory: Reports: shortness of breath Genitourinary: Denies: burning Objective Last 24 Hour Vital Signs Date Time Temp Pulse Resp B/P (MAP) Pulse Ox O2 Delivery O2 Flow Rate FiO2 06/01/17 17:14 86 25 100 Facial 40 06/01/17 17:00 80 26 118/86 100 Bi-pap 40 06/01/17 16:00 98.1 79 23 118/86 97 Bi-pap 40 06/01/17 16:00 40 06/01/17 16:00 76 06/01/17 15:00 78 18 136/85 100 Bi-pap 40 06/01/17 14:34 86 29 100 Facial 40 //18 14:00 80 27 117/83 98 Bi-pap 40 06/01/17 13:28 86 26 95 Facial 40 //18 13:00 86 26 113/77 94 Bi-pap 40 06/01/18 12:45 40 06/01/18 12:26 87 22 95 Facial 40 //18 12:15 Bi-pap 40 //18 12:00 98.0 81 21 117/75 100 Mechanical Ventilator 60 06/01/17 12:00 40 06/01/18 12:00 75 06/01/17 11:00 82 24 117/78 100 Mechanical Ventilator 40 06/01/17 10:52 74 19 40 06/01/17 10:50 98 06/01/17 10:45 74 20 40 2/2/18 10:00 74 17 117/79 100 Mechanical Ventilator 60 2/2/18 09:00 72 17 104/71 100 Mechanical Ventilator 60 2/2/18 08:55 72 125/71 2/2/18 08:47 71 18 50 2/2/18 08:00 98.4 71 17 125/71 97 Mechanical Ventilator 60 2/2/18 08:00 68 2/2/18 07:35 60 2/2/18 07:00 73 18 50 2/2/18 07:00 74 17 132/82 100 Mechanical Ventilator 60 2/2/18 06:08 78 18 50 2/2/18 06:00 74 17 116/77 100 Mechanical Ventilator 60 2/2/18 05:00 69 16 113/78 100 Mechanical Ventilator 60 2/2/18 04:00 60 2/2/18 04:00 98.9 69 16 108/60 100 Mechanical Ventilator 60 2/2/18 04:00 69 2/2/18 03:51 70 16 50 2/2/18 03:00 75 16 95/54 100 Mechanical Ventilator 60 2//18 02:00 77 16 99/61 100 Mechanical Ventilator 60 2//18 01:24 87 18 50 2/2/18 01:00 84 21 115/79 100 Mechanical Ventilator 60 2/2/18 00:00 60 2/2/18 00:00 98.4 79 17 112/76 100 Mechanical Ventilator 60 2/2/18 00:00 79 2/18 23:00 79 18 103/69 100 Mechanical Ventilator 60 2//18 22:59 82 18 50 2//18 22:00 81 17 96/63 100 Mechanical Ventilator 60 2/18 21:00 82 22 136/88 100 Mechanical Ventilator 60 2//18 21:00 88 18 50 2//18 20:55 86 123/82 2//18 20:00 86 2//18 20:00 60 2//18 20:00 99.1 83 18 123/82 100 Mechanical Ventilator 60 2//18 19:34 60 2//18 19:32 106 17 50 2//18 19:00 109 17 109/74 100 Mechanical Ventilator 50 2/18 18:00 97 19 97/66 75 Mechanical Ventilator 50 General Appearance: no apparent distress, alert, other - on bipap Neck: supple Cardiovascular: normal rate, regular rhythm Respiratory/Chest: lungs clear Abdomen: normal bowel sounds, non tender, soft Extremities: no swelling Intake and Output 05/31/17 06/01/17 19:00 07:00 Intake Total 1160.0 ml 410 ml Output Total 1140 ml 890 ml Balance 20.0 ml -480 ml Free Water 50 ml IV Total 800.0 ml Tube Feeding 360 ml 360 ml Output Urine Total 1140 ml 890 ml # Bowel Movements 3 3 Laboratory Tests Test 06/01/17 04:30 06/01/17 09:05 06/01/17 11:35 White Blood Count 8.8 K/UL (4.8-10.8) Red Blood Count 6.84 M/UL (4.70-6.10) H Hemoglobin 14.8 G/DL (14.2-18.0) Hematocrit 50.5 % (42.0-52.0) Mean Corpuscular Volume 74 FL (80-99) L Mean Corpuscular Hemoglobin 21.6 PG (27.0-31.0) L Mean Corpuscular Hemoglobin Concent 29.2 G/DL (32.0-36.0) L Red Cell Distribution Width 18.6 % (11.6-14.8) H Platelet Count 145 K/UL (150-450) L Mean Platelet Volume 8.7 FL (6.5-10.1) Neutrophils (%) (Auto) 81.3 % (45.0-75.0) H Lymphocytes (%) (Auto) 5.6 % (20.0-45.0) L Monocytes (%) (Auto) 11.1 % (1.0-10.0) H Eosinophils (%) (Auto) 1.9 % (0.0-3.0) Basophils (%) (Auto) 0.2 % (0.0-2.0) Sodium Level 142 MMOL/L (136-145) Potassium Level 3.4 MMOL/L (3.5-5.1) L Chloride Level 101 MMOL/L (98-107) Carbon Dioxide Level 36 MMOL/L (21-32) H Anion Gap 6 mmol/L (5-15) Blood Urea Nitrogen 38 mg/dL (7-18) H Creatinine 1.7 MG/DL (0.55-1.30) H Estimat Glomerular Filtration Rate 49.7 mL/min (>60) Glucose Level 80 MG/DL (74-106) Calcium Level 8.7 MG/DL (8.5-10.1) Phosphorus Level 2.9 MG/DL (2.5-4.9) Magnesium Level 2.1 MG/DL (1.8-2.4) Total Bilirubin 1.9 MG/DL (0.2-1.0) H Direct Bilirubin 0.8 MG/DL (0.0-0.3) H Aspartate Amino Transf (AST/SGOT) 21 U/L (15-37) Alanine Aminotransferase (ALT/SGPT) 15 U/L (12-78) Alkaline Phosphatase 74 U/L (46-116) Total Protein 6.6 G/DL (6.4-8.2) Albumin 2.2 G/DL (3.4-5.0) L Globulin 4.4 g/dL Albumin/Globulin Ratio 0.5 (1.0-2.7) L Arterial Blood pH 7.367 (7.350-7.450) 7.367 (7.350-7.450) Arterial Blood Partial Pressure CO2 54.7 mmHg (35.0-45.0) H 57.5 mmHg (35.0-45.0) *H Arterial Blood Partial Pressure O2 62.2 mmHg (75.0-100.0) L 61.6 mmHg (75.0-100.0) L Arterial Blood HCO3 30.7 mmol/L (22.0-26.0) H 32.3 mmol/L (22.0-26.0) H Arterial Blood Oxygen Saturation 89.7 % (92.0-98.0) L 89.9 % (92.0-98.0) L Arterial Blood Base Excess 3.9 5.1 [place] Test Positive Positive ABHISHEK BYRD Jun 01, 2017 17:26
[2017-06-02] VITALS (13 sets, daily range): BP systolic 98–127; BP diastolic 62–82
[2017-06-02 05:40] LABS: BASOPHILS % (AUTO) 0.4 % (0.0-2.0); EOSINOPHILS % (AUTO) 4.8 % (0.0-3.0); HEMATOCRIT 49.9 % (42.0-52.0); HEMOGLOBIN 14.6 G/DL (14.2-18.0); LYMPHOCYTES % (AUTO) 8.1 % (20.0-45.0); MEAN CORPUSCULAR VOLUME 74 FL (80-99); MONOCYTES % (AUTO) 12.1 % (1.0-10.0); NEUTROPHILS % (AUTO) 74.6 % (45.0-75.0); PLATELET COUNT 153 K/UL (150-450); RED BLOOD COUNT 6.76 M/UL (4.70-6.10); RED CELL DISTRIBUTION WIDTH 18.6 % (11.6-14.8); WHITE BLOOD COUNT 7.1 K/UL (4.8-10.8)
[2017-06-02 06:12] LABS: PHOSPHORUS 3.1 MG/DL (2.5-4.9)
[2017-06-02 08:18] LABS: ANION GAP 6 mmol/L (5-15); CARBON DIOXIDE 29 MMOL/L (21-32); CHLORIDE 104 MMOL/L (98-107); POTASSIUM 3.7 MMOL/L (3.5-5.1); SODIUM 139 MMOL/L (136-145)
[2017-06-02 08:19] LABS: ALANINE AMINOTRANSFERASE 22 U/L (12-78); ALBUMIN 2.2 G/DL (3.4-5.0); ALBUMIN/GLOBULIN RATIO 0.5 (1.0-2.7); ALKALINE PHOSPHATASE 81 U/L (46-116); ASPARTATE AMINO TRANSFERASE 25 U/L (15-37); BLOOD UREA NITROGEN 41 mg/dL (7-18); CALCIUM 8.9 MG/DL (8.5-10.1); CREATININE 1.6 MG/DL (0.55-1.30)
--- NOTE | 2017-06-02 08:24 | Pulmonolgy Critical Care Note ---
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 hypokalemia elevated troponin PLAN OF CARE ICU BiPAP fup with CXR and ABG this am ABG with hypercapnia, trial of Diamox Pulmonary toilet Cardio follows CTA no PE ECHO with pEF 60-65% and RVSP of 59 No shunting by bubble study s/p Lasix gtt ID follows influenza screen negative s/p empriic Rx for PNA per ID monitor off abx CT head no acute IC pathology, + old L CVA GI prophylaxis nephro follows monitor renal parameters, lytes correct lytes as needed avoid nephrotoxic, troponin with minimal elevation, cardio not concerned , likely due to renal insufficiency transfer to [facility] case discussed and evaluated by supervising physician Critical Care - Objective Last 24 Hour Vital Signs Date Time Temp Pulse Resp B/P (MAP) Pulse Ox O2 Delivery O2 Flow Rate FiO2 06/02/17 05:22 70 25 95 Facial 40 06/02/17 04:00 40 06/02/17 04:00 84 06/02/17 03:27 69 24 95 Facial 40 //18 01:10 82 29 94 Facial 40 06/02/17 00:00 89 06/02/17 00:00 45 06/02/17 00:00 98.4 89 28 112/62 89 Bi-pap 45 //18 23:10 91 26 96 Facial 40 /2/18 23:00 91 28 136/88 91 Bi-pap 45 //18 22:00 91 28 96/59 90 Bi-pap 45 2/2/18 21:11 91 29 93 Facial 40 //18 21:00 92 27 131/82 93 Bi-pap 45 /2/18 20:53 108 100/66 //18 20:00 45 /2/18 20:00 103 28 116/77 90 Bi-pap 40 /2/18 20:00 105 //18 19:39 94 25 Bi-pap 40 2/2/18 19:39 94 25 95 Facial 40 2/2/18 19:00 98.6 89 26 100/66 89 Bi-pap 40 2/2/18 18:00 78 22 136/93 99 Bi-pap 40 2/2/18 17:14 86 25 100 Facial 40 2/2/18 17:00 80 26 118/86 100 Bi-pap 40 2/2/18 16:00 98.1 79 23 118/86 97 Bi-pap 40 2/2/18 16:00 40 2/2/18 16:00 76 2/2/18 15:00 78 18 136/85 100 Bi-pap 40 2/2/18 14:34 86 29 100 Facial 40 2/2/18 14:00 80 27 117/83 98 Bi-pap 40 2/2/18 13:28 86 26 95 Facial 40 2/2/18 13:00 86 26 113/77 94 Bi-pap 40 2/2/18 12:45 40 /2/18 12:26 87 22 95 Facial 40 /2/18 12:15 Bi-pap 40 2/2/18 12:00 98.0 81 21 117/75 100 Mechanical Ventilator 60 2/2/18 12:00 40 2/2/18 12:00 75 //18 11:00 82 24 117/78 100 Mechanical Ventilator 40 //18 10:52 74 19 40 2/2/18 10:50 98 2/2/18 10:45 74 20 40 2/2/18 10:00 74 17 117/79 100 Mechanical Ventilator 60 //18 09:00 72 17 104/71 100 Mechanical Ventilator 60 /2/18 08:55 72 125/71 2/2/18 08:47 71 18 50 Status: awake - alert, oriented on BiPAP 15/5/ 40% Condition: improving HEENT: atraumatic, normocephalic, other - BiPAP mask on Neck: full ROM Heart: HR/BP stable Abdomen: soft, non-tender - obese, active bowel sounds Extremities: no C/C/E Critical Care - Subjective Interval Events: s/p extubation on BiPAP tachypneic, HR stable Condition: improving EKG Rhythm: Sinus Rhythm FI02: 40 Vent Support Breath Rate: 16 Vent Support Mode: CPAP Vent Tidal Volume: 600 Sputum Amount: None PEEP: 5.0 PIP: 17 I&O: Intake and Output 06/01/17 06/02/17 19:00 07:00 Intake Total 305 ml 130 ml Output Total 890 ml 510 ml Balance -585 ml -380 ml Intake Oral 130 ml IV Total 55 ml Tube Feeding 150 ml Other 100 ml Output Urine Total 890 ml 510 ml # Bowel Movements 2 CXR: Stable or perhaps slightly improved interstitial and airspace edema, over one day ET-Tube: 7.5 ET Position: 28 Evangelista ([facility]),Sita YOO Jun 02, 2017 08:24
[2017-06-02] MEDS: Theophylline ER 100mg ORAL SCH ×2 (08:52→20:16)
[2017-06-02] MEDS: Carvedilol 6.25mg Tab ORAL SCH ×2 (08:52→20:16)
--- NOTE | 2017-06-02 09:27 | Infectious Diseases Prog Note ---
Assessment/Plan Assessment/Plan Assessment: Acute hypoxic/hypercapneic resp failure- likely multifacotrial 2ry to COPD/CHF exacerbation, pHTN, ?obesity hypoventilation syndrome and PNA- extubated now on BIpap -CXR 05/31: Persistent patchy bilateral lower lung airspace opacities and small left pleural effusion. -CTA chest 05/29: Negative for acute pulmonary embolus or other acute thoracic vascular pathology. Pulmonary arterial dilatation, likely indicating chronic pulmonary arterial hypertension. Moderate-sized right and small left pleural effusions. Complete atelectasis and consolidation of both lower lobes. Mild interstitial congestion and hazy groundglass opacity of the aerated portions of the lungs, likely reflecting pulmonary edema. Endotracheal and nasogastric tubes pericardial thickening versus fluid, minimal. Degenerative spondylosis -sp Cx normal fly -CXR 05/28: Improved but persistent parenchymal consolidation or edema, over one day -influenza test ordered, never done; treated empirically -legionella ag urine neg Low grade fever x1 -no leukocytosis CAITLIN on CKD, improving CHF recent SAM sx (not yet on Bipap) HTN pHTN Mitral regurgitation med non compliance morbid obesity recent R tibial region injury Plan: -Continue to monitor off abx -06/01 SP Tamiflu #5, Levaquin #5, Ceftriaxone #2 -05/31 SP Zosyn #6, IV Vanco #3 -Monitor CBC/BMP, temperatures -O2 support per pulm; bipap weaning -aspiration precautions Thank you for this consultation. Will continue to follow along with you. Discussed with RN Subjective Allergies: Coded Allergies: No Known Allergies (Unverified , 07/23/16) Subjective afebrile no leukocytosis on Bipap Objective Vital Signs Last 24 Hour Vital Signs Date Time Temp Pulse Resp B/P (MAP) Pulse Ox O2 Delivery O2 Flow Rate FiO2 06/02/17 09:00 85 22 98/68 86 Bi-pap 45 06/02/17 08:52 87 108/67 06/02/17 08:00 5.0 06/02/17 08:00 87 25 108/67 86 Bi-pap 45 06/02/17 07:00 98.8 89 30 110/62 88 Bi-pap 45 06/02/17 05:22 70 25 95 Facial 40 06/02/17 04:00 40 06/02/17 04:00 84 06/02/17 03:27 69 24 95 Facial 40 2/3/18 01:10 82 29 94 Facial 40 2/3/18 00:00 89 2/3/18 00:00 45 2/3/18 00:00 98.4 89 28 112/62 89 Bi-pap 45 2/2/18 23:10 91 26 96 Facial 40 2/2/18 23:00 91 28 136/88 91 Bi-pap 45 2/2/18 22:00 91 28 96/59 90 Bi-pap 45 2/2/18 21:11 91 29 93 Facial 40 2/2/18 21:00 92 27 131/82 93 Bi-pap 45 2/2/18 20:53 108 100/66 2/2/18 20:00 45 2/2/18 20:00 103 28 116/77 90 Bi-pap 40 2/2/18 20:00 105 2/2/18 19:39 94 25 Bi-pap 40 2/2/18 19:39 94 25 95 Facial 40 2/2/18 19:00 98.6 89 26 100/66 89 Bi-pap 40 2/2/18 18:00 78 22 136/93 99 Bi-pap 40 2/2/18 17:14 86 25 100 Facial 40 2/2/18 17:00 80 26 118/86 100 Bi-pap 40 2/2/18 16:00 98.1 79 23 118/86 97 Bi-pap 40 2/2/18 16:00 40 2/2/18 16:00 76 2/2/18 15:00 78 18 136/85 100 Bi-pap 40 2/2/18 14:34 86 29 100 Facial 40 2/2/18 14:00 80 27 117/83 98 Bi-pap 40 2/2/18 13:28 86 26 95 Facial 40 2/2/18 13:00 86 26 113/77 94 Bi-pap 40 2/2/18 12:45 40 2/2/18 12:26 87 22 95 Facial 40 2/2/18 12:15 Bi-pap 40 2/2/18 12:00 98.0 81 21 117/75 100 Mechanical Ventilator 60 2/2/18 12:00 40 2/2/18 12:00 75 2/2/18 11:00 82 24 117/78 100 Mechanical Ventilator 40 2/2/18 10:52 74 19 40 2/2/18 10:50 98 06/01/17 10:45 74 20 40 06/01/17 10:00 74 17 117/79 100 Mechanical Ventilator 60 Height (Feet): 5 Height (Inches): 7.00 Weight (Pounds): 260 Objective GENERAL: Shows to be middle-aged gentleman, on bipap NECK: Supple. LUNGS: Decreased breath sounds noted bilaterally CARDIAC: Regular rate and rhythm. ABDOMEN: Obese. Positive bowel sounds. Nontender. EXTREMITIES: +edema SKIN: no rashes Laboratory Tests Test 06/01/17 11:35 06/02/17 05:25 Arterial Blood pH 7.367 (7.350-7.450) Arterial Blood Partial Pressure CO2 57.5 mmHg (35.0-45.0) *H Arterial Blood Partial Pressure O2 61.6 mmHg (75.0-100.0) L Arterial Blood HCO3 32.3 mmol/L (22.0-26.0) H Arterial Blood Oxygen Saturation 89.9 % (92.0-98.0) L Arterial Blood Base Excess 5.1 [place] Test Positive White Blood Count 7.1 K/UL (4.8-10.8) Red Blood Count 6.76 M/UL (4.70-6.10) H Hemoglobin 14.6 G/DL (14.2-18.0) Hematocrit 49.9 % (42.0-52.0) Mean Corpuscular Volume 74 FL (80-99) L Mean Corpuscular Hemoglobin 21.6 PG (27.0-31.0) L Mean Corpuscular Hemoglobin Concent 29.2 G/DL (32.0-36.0) L Red Cell Distribution Width 18.6 % (11.6-14.8) H Platelet Count 153 K/UL (150-450) Mean Platelet Volume 8.4 FL (6.5-10.1) Neutrophils (%) (Auto) 74.6 % (45.0-75.0) Lymphocytes (%) (Auto) 8.1 % (20.0-45.0) L Monocytes (%) (Auto) 12.1 % (1.0-10.0) H Eosinophils (%) (Auto) 4.8 % (0.0-3.0) H Basophils (%) (Auto) 0.4 % (0.0-2.0) Sodium Level 139 MMOL/L (136-145) Potassium Level 3.7 MMOL/L (3.5-5.1) Chloride Level 104 MMOL/L (98-107) Carbon Dioxide Level 29 MMOL/L (21-32) Anion Gap 6 mmol/L (5-15) Blood Urea Nitrogen 41 mg/dL (7-18) H Creatinine 1.6 MG/DL (0.55-1.30) H Estimat Glomerular Filtration Rate 53.3 mL/min (>60) Glucose Level 87 MG/DL (74-106) Calcium Level 8.9 MG/DL (8.5-10.1) Phosphorus Level 3.1 MG/DL (2.5-4.9) Magnesium Level 2.2 MG/DL (1.8-2.4) Total Bilirubin 1.0 MG/DL (0.2-1.0) Aspartate Amino Transf (AST/SGOT) 25 U/L (15-37) Alanine Aminotransferase (ALT/SGPT) 22 U/L (12-78) Alkaline Phosphatase 81 U/L (46-116) Total Protein 6.6 G/DL (6.4-8.2) Albumin 2.2 G/DL (3.4-5.0) L Globulin 4.4 g/dL Albumin/Globulin Ratio 0.5 (1.0-2.7) L Current Medications Medications (Trade) Dose Ordered Sig/Judy Route PRN Reason Start Time Stop Time Status Last Admin Dose Admin Acetazolamide (Diamox) 250 mg TWICE A DAY ORAL 05/30/17 18:00 06/29/17 17:59 06/02/17 08:53 Carvedilol (Coreg) 6.25 mg EVERY 12 HOURS ORAL 05/27/17 21:00 06/25/17 20:59 06/02/17 08:52 Ceftriaxone Sodium 1 gm/ Sodium Chloride 55 ml @ 110 mls/hr Q24H IVPB 05/31/17 13:30 06/07/17 13:29 06/01/17 13:55 Dextrose (Dextrose 50%) STAT PRN IV Hypoglycemia 05/27/17 18:30 06/26/17 18:29 Famotidine (Pepcid I.v.) 20 mg Q12HR IVP 05/28/17 21:00 06/27/17 20:59 06/01/17 20:53 Levofloxacin (Levaquin) 750 mg QHS ORAL 05/28/17 21:00 06/04/17 20:59 06/01/17 20:53 Lorazepam (Ativan 2mg/ml 1ml) 2 mg Q4H PRN IV For Anxiety 05/27/17 18:30 06/03/17 14:29 05/29/17 23:18 Morphine Sulfate (Morphine Sulfate) 4 mg Q4H PRN IVP PAIN 4-10 05/27/17 18:30 06/03/17 14:29 05/30/17 00:07 Nitroglycerin (Ntg) 0.4 mg Q5M X 3 DOSES PRN SL Prn Chest Pain 05/27/17 18:30 06/25/17 18:29 Ondansetron HCl (Zofran) 4 mg Q6H PRN IVP Nausea & Vomiting 05/27/17 18:30 06/25/17 18:29 Potassium Chloride (K-Dur) 40 meq TWICE A DAY ORAL 05/31/17 10:00 06/30/17 09:59 06/02/17 08:51 Temazepam (Restoril) 15 mg HSPRN PRN ORAL Insomnia 05/27/17 21:00 06/02/17 20:59 06/01/17 21:29 Theophylline (Frandy-Dur) 100 mg EVERY 12 HOURS ORAL 05/27/17 21:00 06/25/17 20:59 06/02/17 08:52 Elma Paris M.D. Jun 02, 2017 09:27
--- NOTE | 2017-06-02 10:58 | Diagnostic Imaging Report ---
Indication: Dyspnea Technique: One view of the chest Comparison: June 01, 2017 Findings: Interim removal of endotracheal and nasogastric tubes Bilateral interstitial and airspace edema persists, appears minimally improved. There is probably some pleural fluid at the left lung base. The heart remains markedly enlarged. Impression: Stable or perhaps slightly improved interstitial and airspace edema, over one day Interim endotracheal and nasogastric extubation
--- NOTE | 2017-06-02 13:17 | Nephrology Progress Note ---
Assessment/Plan Problem List: (1) ATN (acute tubular necrosis) Assessment: better (2) COPD exacerbation (3) HTN (hypertension) Assessment: ok (4) Hypokalemia Assessment: ok Plan abxs Resp treatments cont BIPAP follow BMP Subjective Subjective seen in ICU on BIPAP Objective Objective Last 24 Hour Vital Signs Date Time Temp Pulse Resp B/P (MAP) Pulse Ox O2 Delivery O2 Flow Rate FiO2 18 13:06 80 23 95 Facial 40 2/3/18 13:00 89 19 127/82 82 Bi-pap 45 2/3/18 12:00 40 2/3/18 12:00 98.4 75 21 112/72 85 Bi-pap 45 2/3/18 12:00 69 2//18 11:32 73 22 93 Facial 40 2/3/18 11:00 75 19 112/62 88 Bi-pap 45 2/3/18 10:00 80 21 98/68 85 Bi-pap 45 2/3/18 09:41 87 27 97 Facial 40 2/3/18 09:00 85 22 98/68 86 Bi-pap 45 2/3/18 08:52 87 108/67 2/3/18 08:00 5.0 2/3/18 08:00 87 25 108/67 86 Bi-pap 45 2/3/18 08:00 76 2//18 07:00 98.8 89 30 110/62 88 Bi-pap 45 2/3/18 06:33 76 19 93 Facial 40 2/3/18 05:22 70 25 95 Facial 40 2/3/18 04:00 40 2/3/18 04:00 84 2/3/18 03:27 69 24 95 Facial 40 2/3/18 01:10 82 29 94 Facial 40 2/3/18 00:00 89 2/3/18 00:00 45 2/3/18 00:00 98.4 89 28 112/62 89 Bi-pap 45 2/2/18 23:10 91 26 96 Facial 40 2/2/18 23:00 91 28 136/88 91 Bi-pap 45 2/2/18 22:00 91 28 96/59 90 Bi-pap 45 2/2/18 21:11 91 29 93 Facial 40 2/2/18 21:00 92 27 131/82 93 Bi-pap 45 2/2/18 20:53 108 100/66 06/01/17 20:00 45 06/01/17 20:00 103 28 116/77 90 Bi-pap 40 06/01/17 20:00 105 06/01/17 19:39 94 25 Bi-pap 40 06/01/17 19:39 94 25 95 Facial 40 06/01/17 19:00 98.6 89 26 100/66 89 Bi-pap 40 06/01/17 18:00 78 22 136/93 99 Bi-pap 40 06/01/17 17:14 86 25 100 Facial 40 06/01/17 17:00 80 26 118/86 100 Bi-pap 40 06/01/17 16:00 98.1 79 23 118/86 97 Bi-pap 40 06/01/17 16:00 40 06/01/17 16:00 76 06/01/17 15:00 78 18 136/85 100 Bi-pap 40 06/01/17 14:34 86 29 100 Facial 40 06/01/17 14:00 80 27 117/83 98 Bi-pap 40 06/01/17 13:28 86 26 95 Facial 40 Intake and Output 06/01/17 06/02/17 19:00 07:00 Intake Total 305 ml 330 ml Output Total 890 ml 540 ml Balance -585 ml -210 ml Intake Oral 330 ml IV Total 55 ml Tube Feeding 150 ml Other 100 ml Output Urine Total 890 ml 540 ml # Bowel Movements 2 Laboratory Tests 06/02/17 05:25: White Blood Count 7.1, Red Blood Count 6.76H, Hemoglobin 14.6, Hematocrit 49.9, Mean Corpuscular Volume 74L, Mean Corpuscular Hemoglobin 21.6L, Mean Corpuscular Hemoglobin Concent 29.2L, Red Cell Distribution Width 18.6H, Platelet Count 153, Mean Platelet Volume 8.4, Neutrophils (%) (Auto) 74.6, Lymphocytes (%) (Auto) 8.1L, Monocytes (%) (Auto) 12.1H, Eosinophils (%) (Auto) 4.8H, Basophils (%) (Auto) 0.4, Sodium Level 139, Potassium Level 3.7, Chloride Level 104, Carbon Dioxide Level 29, Anion Gap 6, Blood Urea Nitrogen 41H, Creatinine 1.6H, Estimat Glomerular Filtration Rate 53.3, Glucose Level 87, Calcium Level 8.9, Phosphorus Level 3.1, Magnesium Level 2.2, Total Bilirubin 1.0, Aspartate Amino Transf (AST/SGOT) 25, Alanine Aminotransferase (ALT/SGPT) 22, Alkaline Phosphatase 81, Total Protein 6.6, Albumin 2.2L, Globulin 4.4, Albumin/Globulin Ratio 0.5L 06/02/17 09:24: Arterial Blood pH 7.260L, Arterial Blood Partial Pressure CO2 69.8*H, Arterial Blood Partial Pressure O2 70.4L, Arterial Blood HCO3 31.0H, Arterial Blood Oxygen Saturation 92.4, Arterial Blood Base Excess 1.8, [place] Test Positive Height (Feet): 5 Height (Inches): 7.00 Weight (Pounds): 260 Cardiovascular: normal rate Respiratory/Chest: rhonchi - bilaterally Extremities: trace edema BEE BAUTISTA Jun 02, 2017 13:17
[2017-06-02] MEDS ORDERED: Albuterol/Ipratropium 3ml neb HHN PRN (13:45)
[2017-06-02] MEDS ORDERED: Morphine Sulfate 4mg/ml Inj IVP PRN (14:00)
[2017-06-02] MEDS ORDERED: LORazepam Inj 2mg/ml 1ml IV PRN (14:00)
[2017-06-02] MEDS ORDERED: NS 500ML ONE (16:34)
[2017-06-02] MEDS ORDERED: Tubing IV Secondary IV ONE (16:34)
--- NOTE | 2017-06-02 19:00 | Cardiology Progress Note ---
Assessment/Plan Problem List: (1) COPD exacerbation (2) HTN (hypertension) (3) CHF (congestive heart failure) Status: progressing Status Narrative Mr. Carbajal was adm w/ dyspnea and has moderate pulm hypertension by ECHO. He has moderate LVH, ? diastolic dysfunction causing pulm hypertension vs primary lung disease. w/u for PE negative Assessment/Plan continue coreg for BP control. Diamox diuresis and for met alkalosis Followup labs in am. Subjective ROS Limited/Unobtainable: No Subjective Cardiology for Dr. Oreilly Pt w/ exertional dyspnea, abdominal bloating. No c/o CP Objective Last 24 Hour Vital Signs Date Time Temp Pulse Resp B/P (MAP) Pulse Ox O2 Delivery O2 Flow Rate FiO2 06/02/17 17:00 84 19 102/68 98 Nasal Cannula 45 18 16:00 3.0 218 16:00 98.2 87 20 100/71 99 Bi-pap 45 2/3/18 16:00 79 06/02/18 15:00 68 31 113/72 89 Bi-pap 45 2/3/18 14:00 78 19 109/75 97 Bi-pap 45 2/3/18 13:06 80 23 95 Facial 40 2/3/18 13:00 89 19 127/82 82 Bi-pap 45 2/3/18 12:00 40 2/3/18 12:00 98.4 75 21 112/72 85 Bi-pap 45 2/3/18 12:00 69 2/3/18 11:32 73 22 93 Facial 40 2/3/18 11:00 75 19 112/62 88 Bi-pap 45 2/3/18 10:00 80 21 98/68 85 Bi-pap 45 2/3/18 09:41 87 27 97 Facial 40 2/3/18 09:00 85 22 98/68 86 Bi-pap 45 2/3/18 08:52 87 108/67 2/3/18 08:00 5.0 2/3/18 08:00 87 25 108/67 86 Bi-pap 45 2/3/18 08:00 76 2/3/18 07:00 98.8 89 30 110/62 88 Bi-pap 45 2/3/18 06:33 76 19 93 Facial 40 2/3/18 05:22 70 25 95 Facial 40 2/3/18 04:00 40 2/3/18 04:00 84 06/02/17 03:27 69 24 95 Facial 40 06/02/17 01:10 82 29 94 Facial 40 06/02/17 00:00 89 06/02/17 00:00 45 06/02/17 00:00 98.4 89 28 112/62 89 Bi-pap 45 06/01/17 23:10 91 26 96 Facial 40 06/01/17 23:00 91 28 136/88 91 Bi-pap 45 06/01/17 22:00 91 28 96/59 90 Bi-pap 45 06/01/17 21:11 91 29 93 Facial 40 06/01/17 21:00 92 27 131/82 93 Bi-pap 45 06/01/17 20:53 108 100/66 06/01/17 20:00 45 06/01/17 20:00 103 28 116/77 90 Bi-pap 40 06/01/17 20:00 105 06/01/17 19:39 94 25 Bi-pap 40 06/01/17 19:39 94 25 95 Facial 40 06/01/17 19:00 98.6 89 26 100/66 89 Bi-pap 40 General Appearance: WD/WN, no apparent distress, alert, obese EENT: PERRL/EOMI Neck: no JVD Rhythm: NSR Cardiovascular: normal rate, regular rhythm, no gallop/murmur Respiratory/Chest: other - occ rhonchi bilat Abdomen: normal bowel sounds, non tender, soft Extremities: no swelling Intake and Output 06/01/17 06/02/17 19:00 07:00 Intake Total 305 ml 330 ml Output Total 890 ml 540 ml Balance -585 ml -210 ml Intake Oral 330 ml IV Total 55 ml Tube Feeding 150 ml Other 100 ml Output Urine Total 890 ml 540 ml # Bowel Movements 2 Laboratory Tests Test 06/02/17 05:25 06/02/17 09:24 06/02/17 14:03 White Blood Count 7.1 K/UL (4.8-10.8) Red Blood Count 6.76 M/UL (4.70-6.10) H Hemoglobin 14.6 G/DL (14.2-18.0) Hematocrit 49.9 % (42.0-52.0) Mean Corpuscular Volume 74 FL (80-99) L Mean Corpuscular Hemoglobin 21.6 PG (27.0-31.0) L Mean Corpuscular Hemoglobin Concent 29.2 G/DL (32.0-36.0) L Red Cell Distribution Width 18.6 % (11.6-14.8) H Platelet Count 153 K/UL (150-450) Mean Platelet Volume 8.4 FL (6.5-10.1) Neutrophils (%) (Auto) 74.6 % (45.0-75.0) Lymphocytes (%) (Auto) 8.1 % (20.0-45.0) L Monocytes (%) (Auto) 12.1 % (1.0-10.0) H Eosinophils (%) (Auto) 4.8 % (0.0-3.0) H Basophils (%) (Auto) 0.4 % (0.0-2.0) Sodium Level 139 MMOL/L (136-145) Potassium Level 3.7 MMOL/L (3.5-5.1) Chloride Level 104 MMOL/L (98-107) Carbon Dioxide Level 29 MMOL/L (21-32) Anion Gap 6 mmol/L (5-15) Blood Urea Nitrogen 41 mg/dL (7-18) H Creatinine 1.6 MG/DL (0.55-1.30) H Estimat Glomerular Filtration Rate 53.3 mL/min (>60) Glucose Level 87 MG/DL (74-106) Calcium Level 8.9 MG/DL (8.5-10.1) Phosphorus Level 3.1 MG/DL (2.5-4.9) Magnesium Level 2.2 MG/DL (1.8-2.4) Total Bilirubin 1.0 MG/DL (0.2-1.0) Aspartate Amino Transf (AST/SGOT) 25 U/L (15-37) Alanine Aminotransferase (ALT/SGPT) 22 U/L (12-78) Alkaline Phosphatase 81 U/L (46-116) Total Protein 6.6 G/DL (6.4-8.2) Albumin 2.2 G/DL (3.4-5.0) L Globulin 4.4 g/dL Albumin/Globulin Ratio 0.5 (1.0-2.7) L Arterial Blood pH 7.260 (7.350-7.450) 7.360 (7.350-7.450) Arterial Blood Partial Pressure CO2 69.8 mmHg (35.0-45.0) *H 49.2 mmHg (35.0-45.0) H Arterial Blood Partial Pressure O2 70.4 mmHg (75.0-100.0) L 99.9 mmHg (75.0-100.0) Arterial Blood HCO3 31.0 mmol/L (22.0-26.0) H 27.4 mmol/L (22.0-26.0) H Arterial Blood Oxygen Saturation 92.4 % (92.0-98.0) 97.5 % (92.0-98.0) Arterial Blood Base Excess 1.8 1.2 [place] Test Positive Positive TA MCCLOUD Jun 02, 2017 19:00
[2017-06-03] VITALS: BP 109/74
[2017-06-03 04:00] VITALS: BP 126/73
[2017-06-03 06:59] LABS: BASOPHILS % (AUTO) 1.2 % (0.0-2.0); EOSINOPHILS % (AUTO) 3.7 % (0.0-3.0); HEMATOCRIT 52.2 % (42.0-52.0); HEMOGLOBIN 15.4 G/DL (14.2-18.0); LYMPHOCYTES % (AUTO) 9.2 % (20.0-45.0); MEAN CORPUSCULAR VOLUME 74 FL (80-99); MONOCYTES % (AUTO) 19.2 % (1.0-10.0); NEUTROPHILS % (AUTO) 66.7 % (45.0-75.0); PLATELET COUNT 152 K/UL (150-450); RED BLOOD COUNT 7.09 M/UL (4.70-6.10); RED CELL DISTRIBUTION WIDTH 18.8 % (11.6-14.8); WHITE BLOOD COUNT 6.4 K/UL (4.8-10.8)
[2017-06-03 07:03] LABS: ANION GAP 3 mmol/L (5-15); BLOOD UREA NITROGEN 39 mg/dL (7-18); CALCIUM 8.8 MG/DL (8.5-10.1); CARBON DIOXIDE 29 MMOL/L (21-32); CHLORIDE 108 MMOL/L (98-107); CREATININE 1.6 MG/DL (0.55-1.30); POTASSIUM 4.5 MMOL/L (3.5-5.1); SODIUM 140 MMOL/L (136-145)
[2017-06-03 08:00] VITALS: BP 96/61
[2017-06-03] MEDS: Carvedilol 6.25mg Tab ORAL SCH ×2 (09:00→20:40)
[2017-06-03] MEDS: Theophylline ER 100mg ORAL SCH ×2 (09:14→20:39)
[2017-06-03] MEDS ORDERED: NS 500ML ONE (10:14)
--- NOTE | 2017-06-03 10:45 | Pulmonology Progress Note ---
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 hypokalemia elevated troponin PLAN OF CARE [facility] restart BiPAP , awayws use at HS even when weaned to o2 via NC fup with CXR and ABG in am trial of Diamox Pulmonary toilet Cardio follows CTA no PE ECHO with pEF 60-65% and RVSP of 59 No shunting by bubble study s/p Lasix gtt ID follows influenza screen negative s/p empriic Rx for PNA per ID monitor off abx CT head no acute IC pathology, + old L CVA GI prophylaxis nephro follows monitor renal parameters, lytes correct lytes as needed avoid nephrotoxic, troponin with minimal elevation, cardio not concerned , likely due to renal insufficiency case discussed and evaluated by supervising physician Subjective Allergies: Coded Allergies: No Known Allergies (Unverified , 07/23/16) Subjective transferred to [facility] this am on O2 via NC ABG with resp acidosis, worsening hypercapnia Objective Last 24 Hour Vital Signs Date Time Temp Pulse Resp B/P (MAP) Pulse Ox O2 Delivery O2 Flow Rate FiO2 06/03/17 09:00 96/61 06/03/17 08:00 97.3 105 22 96/61 97 Room Air 105 105 06/03/17 04:00 98.4 98 20 126/73 99 Nasal Cannula 45 92 06/03/17 04:00 3.0 06/03/17 04:00 93 06/03/17 00:00 3.0 06/03/17 00:00 101 06/03/17 00:00 97.9 92 20 109/74 99 Nasal Cannula 45 92 06/02/17 20:16 75 105/70 06/02/17 20:00 3.0 06/02/17 20:00 97.8 84 18 106/71 98 Nasal Cannula 45 84 06/02/17 20:00 93 06/02/17 18:00 92 06/02/17 17:00 84 19 102/68 98 Nasal Cannula 45 06/02/17 16:00 3.0 06/02/17 16:00 98.2 87 20 100/71 99 Bi-pap 45 06/02/17 16:00 79 06/02/17 15:00 68 31 113/72 89 Bi-pap 45 06/02/17 14:00 78 19 109/75 97 Bi-pap 45 06/02/17 13:06 80 23 95 Facial 40 06/02/17 13:00 89 19 127/82 82 Bi-pap 45 06/02/17 12:00 40 06/02/17 12:00 98.4 75 21 112/72 85 Bi-pap 45 06/02/17 12:00 69 06/02/17 11:32 73 22 93 Facial 40 06/02/17 11:00 75 19 112/62 88 Bi-pap 45 Intake and Output 06/02/17 06/03/17 19:00 07:00 Intake Total 250 ml Output Total 590 ml 600 ml Balance -340 ml -600 ml Intake Oral 250 ml Output Urine Total 590 ml 600 ml # Bowel Movements 1 General Appearance: other - morbidly obese AA male in midl resp distress HEENT: normocephalic, atraumatic, anicteric, other - O2 via NXC Respiratory/Chest: no accessory muscle use, decreased breath sounds Cardiovascular: regular rhythm, tachycardia - ST on tle Abdomen: normal bowel sounds, soft, non tender - obese Extremities: no edema, pedal pulses normal Neurologic/Psychiatric: alert, oriented x 3, responsive Microbiology Date/Time Source Procedure Growth Status 06/02/17 00:30 Sputum Gram Stain - Final Resulted 06/02/17 00:30 Sputum Sputum Culture Pending Resulted Laboratory Tests 06/02/17 14:03: Arterial Blood pH 7.360, Arterial Blood Partial Pressure CO2 49.2H, Arterial Blood Partial Pressure O2 99.9, Arterial Blood HCO3 27.4H, Arterial Blood Oxygen Saturation 97.5, Arterial Blood Base Excess 1.2, [place] Test Positive 06/03/17 04:00: Arterial Blood pH 7.250*L, Arterial Blood Partial Pressure CO2 65.9*H, Arterial Blood Partial Pressure O2 52.9L, Arterial Blood HCO3 28.3H, Arterial Blood Oxygen Saturation 83.6L, Arterial Blood Base Excess -0.8, [place] Test Positive 06/03/17 06:20: White Blood Count 6.4, Red Blood Count 7.09H, Hemoglobin 15.4, Hematocrit 52.2H , Mean Corpuscular Volume 74L, Mean Corpuscular Hemoglobin 21.7L, Mean Corpuscular Hemoglobin Concent 29.5L, Red Cell Distribution Width 18.8H, Platelet Count 152, Mean Platelet Volume 8.5, Neutrophils (%) (Auto) 66.7, Lymphocytes (%) (Auto) 9.2L, Monocytes (%) (Auto) 19.2H, Eosinophils (%) (Auto) 3.7H, Basophils (%) (Auto) 1.2, Sodium Level 140, Potassium Level 4.5, Chloride Level 108H, Carbon Dioxide Level 29, Anion Gap 3L, Blood Urea Nitrogen 39H, Creatinine 1.6H, Estimat Glomerular Filtration Rate 53.3, Glucose Level 92, Calcium Level 8.8 Current Medications Medications (Trade) Dose Ordered Sig/Judy Route PRN Reason Start Time Stop Time Status Last Admin Dose Admin Acetazolamide (Diamox) 250 mg TWICE A DAY ORAL 05/30/17 18:00 06/29/17 17:59 06/03/17 09:14 Albuterol/ Ipratropium (Albuterol/ Ipratropium) 3 ml Q4H PRN HHN SHORTNESS OF BREATH 06/02/17 13:45 06/07/17 13:44 Carvedilol (Coreg) 6.25 mg EVERY 12 HOURS ORAL 05/27/17 21:00 06/25/17 20:59 06/02/17 08:52 Dextrose (Dextrose 50%) STAT PRN IV Hypoglycemia 05/27/17 18:30 06/26/17 18:29 Famotidine (Pepcid I.v.) 20 mg Q12HR IVP 05/28/17 21:00 06/27/17 20:59 06/03/17 09:12 Lorazepam (Ativan 2mg/ml 1ml) 2 mg Q4H PRN IV For Anxiety 06/02/17 14:00 06/08/17 13:59 Morphine Sulfate (Morphine Sulfate) 4 mg Q4H PRN IVP PAIN 4-10 06/02/17 14:00 06/08/17 13:59 Nitroglycerin (Ntg) 0.4 mg Q5M X 3 DOSES PRN SL Prn Chest Pain 05/27/17 18:30 06/25/17 18:29 Ondansetron HCl (Zofran) 4 mg Q6H PRN IVP Nausea & Vomiting 05/27/17 18:30 06/25/17 18:29 Potassium Chloride (K-Dur) 40 meq TWICE A DAY ORAL 05/31/17 10:00 06/30/17 09:59 06/03/17 09:14 Temazepam (Restoril) 15 mg HSPRN PRN ORAL Insomnia 06/02/17 14:00 06/08/17 13:59 Theophylline (Frandy-Dur) 100 mg EVERY 12 HOURS ORAL 05/27/17 21:00 06/25/17 20:59 06/03/17 09:14 Jean Carlos ([facility])Sita NP Jun 03, 2017 10:45
--- NOTE | 2017-06-03 11:17 | Diagnostic Imaging Report ---
Indication: Shortness of breath Technique: One view of the chest Comparison: 06/02/2017 Findings: There is mild elevation of the left hemidiaphragm. There is atelectasis at the left lung base. The heart is enlarged. Minimal interstitial congestion persists although may be slightly improved. Blunting of the left costophrenic sulcus likely indicates a small amount of residual pleural fluid Impression: Improved and now minimal if any residual interstitial congestion. Persistent cardiomegaly Suspect persistent small left pleural effusion
--- NOTE | 2017-06-03 11:41 | Nephrology Progress Note ---
Assessment/Plan Problem List: (1) ATN (acute tubular necrosis) Assessment: stable (2) COPD exacerbation (3) HTN (hypertension) Assessment: ok (4) Hypokalemia Assessment: ok Plan abxs Resp treatments cont BIPAP follow BMP Subjective Subjective Out of ICU on BIPAP Objective Objective Last 24 Hour Vital Signs Date Time Temp Pulse Resp B/P (MAP) Pulse Ox O2 Delivery O2 Flow Rate FiO2 06/03/17 10:52 85 23 96 Facial 40 06/03/17 09:00 96/61 06/03/17 08:00 97.3 105 22 96/61 97 Room Air 105 105 06/03/17 08:00 105 06/03/17 04:00 98.4 98 20 126/73 99 Nasal Cannula 45 92 06/03/17 04:00 3.0 06/03/17 04:00 93 06/03/17 00:00 3.0 06/03/17 00:00 101 06/03/17 00:00 97.9 92 20 109/74 99 Nasal Cannula 45 92 06/02/17 20:16 75 105/70 06/02/17 20:00 3.0 06/02/17 20:00 97.8 84 18 106/71 98 Nasal Cannula 45 84 06/02/17 20:00 93 06/02/17 18:00 92 06/02/17 17:00 84 19 102/68 98 Nasal Cannula 45 06/02/17 16:00 3.0 06/02/17 16:00 98.2 87 20 100/71 99 Bi-pap 45 06/02/17 16:00 79 06/02/17 15:00 68 31 113/72 89 Bi-pap 45 06/02/17 14:00 78 19 109/75 97 Bi-pap 45 06/02/17 13:06 80 23 95 Facial 40 06/02/17 13:00 89 19 127/82 82 Bi-pap 45 06/02/17 12:00 40 06/02/17 12:00 98.4 75 21 112/72 85 Bi-pap 45 06/02/17 12:00 69 Intake and Output 06/02/17 06/03/17 19:00 07:00 Intake Total 250 ml Output Total 590 ml 600 ml Balance -340 ml -600 ml Intake Oral 250 ml Output Urine Total 590 ml 600 ml # Bowel Movements 1 Laboratory Tests 06/02/17 14:03: Arterial Blood pH 7.360, Arterial Blood Partial Pressure CO2 49.2H, Arterial Blood Partial Pressure O2 99.9, Arterial Blood HCO3 27.4H, Arterial Blood Oxygen Saturation 97.5, Arterial Blood Base Excess 1.2, [place] Test Positive 06/03/17 04:00: Arterial Blood pH 7.250*L, Arterial Blood Partial Pressure CO2 65.9*H, Arterial Blood Partial Pressure O2 52.9L, Arterial Blood HCO3 28.3H, Arterial Blood Oxygen Saturation 83.6L, Arterial Blood Base Excess -0.8, [place] Test Positive 06/03/17 06:20: White Blood Count 6.4, Red Blood Count 7.09H, Hemoglobin 15.4, Hematocrit 52.2H , Mean Corpuscular Volume 74L, Mean Corpuscular Hemoglobin 21.7L, Mean Corpuscular Hemoglobin Concent 29.5L, Red Cell Distribution Width 18.8H, Platelet Count 152, Mean Platelet Volume 8.5, Neutrophils (%) (Auto) 66.7, Lymphocytes (%) (Auto) 9.2L, Monocytes (%) (Auto) 19.2H, Eosinophils (%) (Auto) 3.7H, Basophils (%) (Auto) 1.2, Sodium Level 140, Potassium Level 4.5, Chloride Level 108H, Carbon Dioxide Level 29, Anion Gap 3L, Blood Urea Nitrogen 39H, Creatinine 1.6H, Estimat Glomerular Filtration Rate 53.3, Glucose Level 92, Calcium Level 8.8 Height (Feet): 5 Height (Inches): 7.00 Weight (Pounds): 258 Cardiovascular: normal rate Respiratory/Chest: rhonchi - bilaterally Extremities: trace edema BEE BAUTISTA Jun 03, 2017 11:41
[2017-06-03 12:00] VITALS: BP 129/92
[2017-06-03 16:00] VITALS: BP 120/56
--- NOTE | 2017-06-03 18:13 | Cardiology Progress Note ---
Assessment/Plan Problem List: (1) COPD exacerbation (2) HTN (hypertension) (3) CHF (congestive heart failure) Status: stable, progressing Status Narrative Mr. Carbajal was adm w/ dyspnea and has moderate pulm hypertension by ECHO. Pulm hypertension likely due to combination of pulm disease, obesity hypoventilation syndrome, and LV diastolic dysfunction w/ htn Assessment/Plan continue coreg for BP control. Diamox diuresis and for met alkalosis Continue evening bipap per pulm. Subjective Subjective Cardiology for Dr. Oreilly Pt has no c/o. On nc o2 Objective Last 24 Hour Vital Signs Date Time Temp Pulse Resp B/P (MAP) Pulse Ox O2 Delivery O2 Flow Rate FiO2 06/03/17 16:00 97.7 96 21 120/56 93 Nasal Cannula 2.0 96 96 06/03/17 16:00 93 06/03/17 12:00 98.9 89 24 129/92 Nasal Cannula 2.0 89 87 06/03/17 12:00 80 06/03/17 10:52 85 23 96 Facial 40 06/03/17 09:00 96/61 06/03/17 08:00 97.3 105 22 96/61 97 Room Air 105 105 06/03/17 08:00 105 06/03/17 04:00 98.4 98 20 126/73 99 Nasal Cannula 45 92 06/03/17 04:00 3.0 06/03/17 04:00 93 06/03/17 00:00 3.0 06/03/17 00:00 101 06/03/17 00:00 97.9 92 20 109/74 99 Nasal Cannula 45 92 06/02/17 20:16 75 105/70 06/02/17 20:00 3.0 06/02/17 20:00 97.8 84 18 106/71 98 Nasal Cannula 45 84 06/02/17 20:00 93 General Appearance: WD/WN, no apparent distress, obese EENT: PERRL/EOMI Neck: supple, no JVD Rhythm: NSR Cardiovascular: normal rate, regular rhythm, no gallop/murmur Respiratory/Chest: lungs clear, no accessory muscle use Abdomen: non tender, soft Extremities: no swelling, other - R calf dressing Intake and Output 06/02/17 06/03/17 19:00 07:00 Intake Total 250 ml Output Total 590 ml 600 ml Balance -340 ml -600 ml Intake Oral 250 ml Output Urine Total 590 ml 600 ml # Bowel Movements 1 Laboratory Tests Test 06/03/17 04:00 06/03/17 06:20 Arterial Blood pH 7.250 (7.350-7.450) Arterial Blood Partial Pressure CO2 65.9 mmHg (35.0-45.0) *H Arterial Blood Partial Pressure O2 52.9 mmHg (75.0-100.0) L Arterial Blood HCO3 28.3 mmol/L (22.0-26.0) H Arterial Blood Oxygen Saturation 83.6 % (92.0-98.0) L Arterial Blood Base Excess -0.8 [place] Test Positive White Blood Count 6.4 K/UL (4.8-10.8) Red Blood Count 7.09 M/UL (4.70-6.10) H Hemoglobin 15.4 G/DL (14.2-18.0) Hematocrit 52.2 % (42.0-52.0) H Mean Corpuscular Volume 74 FL (80-99) L Mean Corpuscular Hemoglobin 21.7 PG (27.0-31.0) L Mean Corpuscular Hemoglobin Concent 29.5 G/DL (32.0-36.0) L Red Cell Distribution Width 18.8 % (11.6-14.8) H Platelet Count 152 K/UL (150-450) Mean Platelet Volume 8.5 FL (6.5-10.1) Neutrophils (%) (Auto) 66.7 % (45.0-75.0) Lymphocytes (%) (Auto) 9.2 % (20.0-45.0) L Monocytes (%) (Auto) 19.2 % (1.0-10.0) H Eosinophils (%) (Auto) 3.7 % (0.0-3.0) H Basophils (%) (Auto) 1.2 % (0.0-2.0) Sodium Level 140 MMOL/L (136-145) Potassium Level 4.5 MMOL/L (3.5-5.1) Chloride Level 108 MMOL/L (98-107) H Carbon Dioxide Level 29 MMOL/L (21-32) Anion Gap 3 mmol/L (5-15) L Blood Urea Nitrogen 39 mg/dL (7-18) H Creatinine 1.6 MG/DL (0.55-1.30) H Estimat Glomerular Filtration Rate 53.3 mL/min (>60) Glucose Level 92 MG/DL (74-106) Calcium Level 8.8 MG/DL (8.5-10.1) Microbiology Date/Time Source Procedure Growth Status 06/02/17 00:30 Sputum Gram Stain - Final Resulted 06/02/17 00:30 Sputum Sputum Culture Pending Resulted TA MCCLOUD Jun 03, 2017 18:13
[2017-06-03 20:00] VITALS: BP 145/90
[2017-06-04] VITALS: BP 140/85
[2017-06-04 04:00] VITALS: BP 125/73
[2017-06-04 04:13] LABS: ANION GAP 2 mmol/L (5-15); BLOOD UREA NITROGEN 30 mg/dL (7-18); CALCIUM 8.6 MG/DL (8.5-10.1); CARBON DIOXIDE 30 MMOL/L (21-32); CHLORIDE 107 MMOL/L (98-107); CREATININE 1.4 MG/DL (0.55-1.30); POTASSIUM 5.2 MMOL/L (3.5-5.1); SODIUM 139 MMOL/L (136-145)
[2017-06-04 04:17] LABS: BASOPHILS % (AUTO) 0.8 % (0.0-2.0); EOSINOPHILS % (AUTO) 4.4 % (0.0-3.0); HEMATOCRIT 52.3 % (42.0-52.0); HEMOGLOBIN 15.5 G/DL (14.2-18.0); LYMPHOCYTES % (AUTO) 9.7 % (20.0-45.0); MEAN CORPUSCULAR VOLUME 74 FL (80-99); MONOCYTES % (AUTO) 18.5 % (1.0-10.0); NEUTROPHILS % (AUTO) 66.6 % (45.0-75.0); PLATELET COUNT 180 K/UL (150-450); RED BLOOD COUNT 7.09 M/UL (4.70-6.10); RED CELL DISTRIBUTION WIDTH 19.4 % (11.6-14.8); WHITE BLOOD COUNT 5.7 K/UL (4.8-10.8)
[2017-06-04 08:00] VITALS: BP 135/87
[2017-06-04] MEDS: Carvedilol 6.25mg Tab ORAL SCH (08:58)
[2017-06-04] MEDS: Theophylline ER 100mg ORAL SCH ×2 (08:58→20:41)
--- NOTE | 2017-06-04 09:56 | Nephrology Progress Note ---
Assessment/Plan Problem List: (1) Respiratory arrest Assessment: previously intubated and now extubated (2) ATN (acute tubular necrosis) Assessment: Cr improved (3) HTN (hypertension) (4) ACS (acute coronary syndrome) (5) COPD exacerbation Assessment now extubated in [facility] - ARF Cr 1.6 - 2.0 - 1.7 now 1.4 - CKD underlying - Fluid overloud - morbid obesity - COPD / CHF / sleep apnea ? - HTN troponin leak Plan Stop K down on Diamox increase Coreg UA Keep BP and BS in check Pulmonary support avoid Nephrotoxics slow diuresis 24 h urine protein Subjective ROS Limited/Unobtainable: No Constitutional: Reports: malaise, weakness, other - extubated now Objective Objective Last 24 Hour Vital Signs Date Time Temp Pulse Resp B/P (MAP) Pulse Ox O2 Delivery O2 Flow Rate FiO2 06/04/17 08:58 98 135/87 06/04/17 04:00 97.3 97 21 125/73 93 Nasal Cannula 2.0 96 06/04/17 04:00 102 06/04/17 00:00 98.6 104 21 140/85 93 Nasal Cannula 2.0 96 06/03/17 22:00 3.0 06/03/17 20:40 100 140/90 06/03/17 20:00 97.3 100 21 145/90 93 Nasal Cannula 2.0 96 06/03/17 20:00 102 06/03/17 16:00 97.7 96 21 120/56 93 Nasal Cannula 2.0 96 96 06/03/17 16:00 93 06/03/17 12:00 98.9 89 24 129/92 Nasal Cannula 2.0 89 87 06/03/17 12:00 80 06/03/17 10:52 85 23 96 Facial 40 Intake and Output 06/03/17 06/04/17 19:00 07:00 Intake Total 240 ml Output Total 250 ml Balance -10 ml Intake Oral 240 ml Output Urine Total 250 ml # Voids 4 # Bowel Movements 1 Laboratory Tests 06/04/17 03:05: White Blood Count 5.7, Red Blood Count 7.09H, Hemoglobin 15.5, Hematocrit 52.3H , Mean Corpuscular Volume 74L, Mean Corpuscular Hemoglobin 21.8L, Mean Corpuscular Hemoglobin Concent 29.6L, Red Cell Distribution Width 19.4H, Platelet Count 180, Mean Platelet Volume 9.0, Neutrophils (%) (Auto) 66.6, Lymphocytes (%) (Auto) 9.7L, Monocytes (%) (Auto) 18.5H, Eosinophils (%) (Auto) 4.4H, Basophils (%) (Auto) 0.8, Sodium Level 139, Potassium Level 5.2H, Chloride Level 107, Carbon Dioxide Level 30, Anion Gap 2L, Blood Urea Nitrogen 30H, Creatinine 1.4H, Estimat Glomerular Filtration Rate > 60, Glucose Level 96 , Calcium Level 8.6 06/04/17 09:45: Arterial Blood pH [Pending], Arterial Blood Partial Pressure CO2 [Pending], Arterial Blood Partial Pressure O2 [Pending], Arterial Blood HCO3 [Pending], Arterial Blood Oxygen Saturation [Pending], Arterial Blood Base Excess [Pending] , Wilton Test [Pending] Height (Feet): 5 Height (Inches): 7.00 Weight (Pounds): 253 General Appearance: no apparent distress Cardiovascular: tachycardia Respiratory/Chest: decreased breath sounds Abdomen: distended, other - obese Objective no other changes GIOVANNI ARMANDO Jun 04, 2017 09:56
[2017-06-04 12:00] VITALS: BP 135/64
--- NOTE | 2017-06-04 12:10 | Pulmonology Progress Note ---
Assessment/Plan Problems: (1) Respiratory distress (2) CHF (congestive heart failure) (3) HTN (hypertension) Assessment/Plan doesnt watn bipap cop2 is still ghigh renal function improving p/ot evaluation again. dc planning Subjective ROS Limited/Unobtainable: No Interval Events: refusing BIPAP Allergies: Coded Allergies: No Known Allergies (Unverified , 07/23/16) Objective Last 24 Hour Vital Signs Date Time Temp Pulse Resp B/P (MAP) Pulse Ox O2 Delivery O2 Flow Rate FiO2 06/04/17 10:33 86 23 97 Facial 40 06/04/17 10:04 86 23 97 Facial 40 06/04/17 08:58 98 135/87 06/04/17 08:00 97.7 98 21 135/87 90 Nasal Cannula 21 98 06/04/17 08:00 98 06/04/17 04:00 97.3 97 21 125/73 93 Nasal Cannula 2.0 96 06/04/17 04:00 102 06/04/17 00:00 98.6 104 21 140/85 93 Nasal Cannula 2.0 96 06/03/17 22:00 3.0 06/03/17 20:40 100 140/90 06/03/17 20:00 97.3 100 21 145/90 93 Nasal Cannula 2.0 96 06/03/17 20:00 102 06/03/17 16:00 97.7 96 21 120/56 93 Nasal Cannula 2.0 96 96 06/03/17 16:00 93 Intake and Output 06/03/17 06/04/17 19:00 07:00 Intake Total 240 ml Output Total 250 ml Balance -10 ml Intake Oral 240 ml Output Urine Total 250 ml # Voids 4 # Bowel Movements 1 General Appearance: WD/WN HEENT: normocephalic, atraumatic Respiratory/Chest: chest wall non-tender, normal breath sounds Cardiovascular: normal peripheral pulses, normal rate Abdomen: normal bowel sounds, soft, non tender Genitourinary: normal external genitalia Extremities: no cyanosis Skin: no rash 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 Lymphatic: no neck adenopathy Microbiology Date/Time Source Procedure Growth Status 06/02/17 00:30 Sputum Gram Stain - Final Complete 06/02/17 00:30 Sputum Sputum Culture - Final NORMAL UPPER RESPIRATORY YANI PRESENT Complete Laboratory Tests 06/04/17 03:05: White Blood Count 5.7, Red Blood Count 7.09H, Hemoglobin 15.5, Hematocrit 52.3H , Mean Corpuscular Volume 74L, Mean Corpuscular Hemoglobin 21.8L, Mean Corpuscular Hemoglobin Concent 29.6L, Red Cell Distribution Width 19.4H, Platelet Count 180, Mean Platelet Volume 9.0, Neutrophils (%) (Auto) 66.6, Lymphocytes (%) (Auto) 9.7L, Monocytes (%) (Auto) 18.5H, Eosinophils (%) (Auto) 4.4H, Basophils (%) (Auto) 0.8, Sodium Level 139, Potassium Level 5.2H, Chloride Level 107, Carbon Dioxide Level 30, Anion Gap 2L, Blood Urea Nitrogen 30H, Creatinine 1.4H, Estimat Glomerular Filtration Rate > 60, Glucose Level 96 , Calcium Level 8.6 06/04/17 09:45: Arterial Blood pH 7.210*L, Arterial Blood Partial Pressure CO2 65.0*H, Arterial Blood Partial Pressure O2 63.1L, Arterial Blood HCO3 25.4, Arterial Blood Oxygen Saturation 88.6L, Arterial Blood Base Excess -4.0, [place] Test Positive Current Medications Medications (Trade) Dose Ordered Sig/Judy Route PRN Reason Start Time Stop Time Status Last Admin Dose Admin Acetazolamide (Diamox) 250 mg DAILY ORAL 06/05/17 09:00 06/29/17 17:59 Albuterol/ Ipratropium (Albuterol/ Ipratropium) 3 ml Q4H PRN HHN SHORTNESS OF BREATH 06/02/17 13:45 06/07/17 13:44 Carvedilol (Coreg) 12.5 mg EVERY 12 HOURS ORAL 06/04/17 21:00 07/04/17 20:59 Dextrose (Dextrose 50%) STAT PRN IV Hypoglycemia 05/27/17 18:30 06/26/17 18:29 Lansoprazole (Prevacid) 30 mg DAILY ORAL 06/05/17 09:00 07/05/17 08:59 Lorazepam (Ativan 2mg/ml 1ml) 2 mg Q4H PRN IV For Anxiety 06/02/17 14:00 06/08/17 13:59 Morphine Sulfate (Morphine Sulfate) 4 mg Q4H PRN IVP PAIN 4-10 06/02/17 14:00 06/08/17 13:59 Nitroglycerin (Ntg) 0.4 mg Q5M X 3 DOSES PRN SL Prn Chest Pain 05/27/17 18:30 06/25/17 18:29 Ondansetron HCl (Zofran) 4 mg Q6H PRN IVP Nausea & Vomiting 05/27/17 18:30 06/25/17 18:29 Temazepam (Restoril) 15 mg HSPRN PRN ORAL Insomnia 06/02/17 14:00 06/08/17 13:59 Theophylline (Frandy-Dur) 100 mg EVERY 12 HOURS ORAL 05/27/17 21:00 06/25/17 20:59 06/04/17 08:58 KEITH CHONG Jun 04, 2017 12:10
--- NOTE | 2017-06-04 12:17 | Infectious Diseases Prog Note ---
Assessment/Plan Assessment/Plan Assessment: Acute hypoxic/hypercapneic resp failure- likely multifacotrial 2ry to COPD/CHF exacerbation, pHTN, ?obesity hypoventilation syndrome and PNA- extubated now on BIpap -CXR 05/31: Persistent patchy bilateral lower lung airspace opacities and small left pleural effusion. -CTA chest 05/29: Negative for acute pulmonary embolus or other acute thoracic vascular pathology. Pulmonary arterial dilatation, likely indicating chronic pulmonary arterial hypertension. Moderate-sized right and small left pleural effusions. Complete atelectasis and consolidation of both lower lobes. Mild interstitial congestion and hazy groundglass opacity of the aerated portions of the lungs, likely reflecting pulmonary edema. Endotracheal and nasogastric tubes pericardial thickening versus fluid, minimal. Degenerative spondylosis -sp Cx normal fly -CXR 05/28: Improved but persistent parenchymal consolidation or edema, over one day -influenza test ordered, never done; treated empirically -legionella ag urine neg Low grade fever x1 -no leukocytosis CAITLIN on CKD, improving CHF recent SAM sx (not yet on Bipap) HTN pHTN Mitral regurgitation med non compliance morbid obesity recent R tibial region injury Plan: -Continue to monitor off abx -06/01 SP Tamiflu #5, Levaquin #5, Ceftriaxone #2 -05/31 SP Zosyn #6, IV Vanco #3 -Monitor CBC/BMP, temperatures -O2 support per pulm; bipap weaning -aspiration precautions Thank you for this consultation. Will continue to follow along with you. Discussed with RN Subjective Allergies: Coded Allergies: No Known Allergies (Unverified , 07/23/16) Subjective afebrile no leukocytosis off abx Objective Vital Signs Last 24 Hour Vital Signs Date Time Temp Pulse Resp B/P (MAP) Pulse Ox O2 Delivery O2 Flow Rate FiO2 06/04/17 10:33 86 23 97 Facial 40 06/04/17 10:04 86 23 97 Facial 40 06/04/17 08:58 98 135/87 06/04/17 08:00 97.7 98 21 135/87 90 Nasal Cannula 21 98 06/04/17 08:00 98 06/04/17 04:00 97.3 97 21 125/73 93 Nasal Cannula 2.0 96 06/04/17 04:00 102 06/04/17 00:00 98.6 104 21 140/85 93 Nasal Cannula 2.0 96 2/4/18 22:00 3.0 06/03/17 20:40 100 140/90 06/03/17 20:00 97.3 100 21 145/90 93 Nasal Cannula 2.0 96 06/03/17 20:00 102 06/03/17 16:00 97.7 96 21 120/56 93 Nasal Cannula 2.0 96 96 06/03/17 16:00 93 Height (Feet): 5 Height (Inches): 7.00 Weight (Pounds): 253 Objective GENERAL: Shows to be middle-aged gentleman, on bipap NECK: Supple. LUNGS: Decreased breath sounds noted bilaterally CARDIAC: Regular rate and rhythm. ABDOMEN: Obese. Positive bowel sounds. Nontender. EXTREMITIES: +edema SKIN: no rashes Microbiology Date/Time Source Procedure Growth Status 06/02/17 00:30 Sputum Gram Stain - Final Complete 06/02/17 00:30 Sputum Sputum Culture - Final NORMAL UPPER RESPIRATORY FLY PRESENT Complete Laboratory Tests Test 06/04/17 03:05 06/04/17 09:45 White Blood Count 5.7 K/UL (4.8-10.8) Red Blood Count 7.09 M/UL (4.70-6.10) H Hemoglobin 15.5 G/DL (14.2-18.0) Hematocrit 52.3 % (42.0-52.0) H Mean Corpuscular Volume 74 FL (80-99) L Mean Corpuscular Hemoglobin 21.8 PG (27.0-31.0) L Mean Corpuscular Hemoglobin Concent 29.6 G/DL (32.0-36.0) L Red Cell Distribution Width 19.4 % (11.6-14.8) H Platelet Count 180 K/UL (150-450) Mean Platelet Volume 9.0 FL (6.5-10.1) Neutrophils (%) (Auto) 66.6 % (45.0-75.0) Lymphocytes (%) (Auto) 9.7 % (20.0-45.0) L Monocytes (%) (Auto) 18.5 % (1.0-10.0) H Eosinophils (%) (Auto) 4.4 % (0.0-3.0) H Basophils (%) (Auto) 0.8 % (0.0-2.0) Sodium Level 139 MMOL/L (136-145) Potassium Level 5.2 MMOL/L (3.5-5.1) H Chloride Level 107 MMOL/L (98-107) Carbon Dioxide Level 30 MMOL/L (21-32) Anion Gap 2 mmol/L (5-15) L Blood Urea Nitrogen 30 mg/dL (7-18) H Creatinine 1.4 MG/DL (0.55-1.30) H Estimat Glomerular Filtration Rate > 60 mL/min (>60) Glucose Level 96 MG/DL (74-106) Calcium Level 8.6 MG/DL (8.5-10.1) Arterial Blood pH 7.210 (7.350-7.450) Arterial Blood Partial Pressure CO2 65.0 mmHg (35.0-45.0) *H Arterial Blood Partial Pressure O2 63.1 mmHg (75.0-100.0) L Arterial Blood HCO3 25.4 mmol/L (22.0-26.0) Arterial Blood Oxygen Saturation 88.6 % (92.0-98.0) L Arterial Blood Base Excess -4.0 [place] Test Positive Current Medications Medications (Trade) Dose Ordered Sig/Judy Route PRN Reason Start Time Stop Time Status Last Admin Dose Admin Acetazolamide (Diamox) 250 mg DAILY ORAL 06/05/17 09:00 06/29/17 17:59 Albuterol/ Ipratropium (Albuterol/ Ipratropium) 3 ml Q4H PRN HHN SHORTNESS OF BREATH 06/02/17 13:45 06/07/17 13:44 Carvedilol (Coreg) 12.5 mg EVERY 12 HOURS ORAL 06/04/17 21:00 07/04/17 20:59 Dextrose (Dextrose 50%) STAT PRN IV Hypoglycemia 05/27/17 18:30 06/26/17 18:29 Lansoprazole (Prevacid) 30 mg DAILY ORAL 06/05/17 09:00 07/05/17 08:59 Lorazepam (Ativan 2mg/ml 1ml) 2 mg Q4H PRN IV For Anxiety 06/02/17 14:00 06/08/17 13:59 Morphine Sulfate (Morphine Sulfate) 4 mg Q4H PRN IVP PAIN 4-10 06/02/17 14:00 06/08/17 13:59 Nitroglycerin (Ntg) 0.4 mg Q5M X 3 DOSES PRN SL Prn Chest Pain 05/27/17 18:30 06/25/17 18:29 Ondansetron HCl (Zofran) 4 mg Q6H PRN IVP Nausea & Vomiting 05/27/17 18:30 06/25/17 18:29 Temazepam (Restoril) 15 mg HSPRN PRN ORAL Insomnia 06/02/17 14:00 06/08/17 13:59 Theophylline (Frandy-Dur) 100 mg EVERY 12 HOURS ORAL 05/27/17 21:00 06/25/17 20:59 06/04/17 08:58 Elma Paris M.D. Jun 04, 2017 12:17
--- NOTE | 2017-06-04 13:51 | Cardiology Report ---
APPROVED REPORT EKG Measurement Heart [id number] Normal sinus rhythm Incomplete right bundle branch block Septal infarct, age undetermined Possible Lateral infarct, age undetermined Inferior infarct, age undetermined Abnormal ECG
--- NOTE | 2017-06-04 13:54 | Cardiology Report ---
APPROVED REPORT EKG Measurement Heart [id number] Normal sinus rhythm Low voltage QRS Possible Inferior infarct, age undetermined Cannot rule out Anterior infarct, age undetermined Abnormal ECG
--- NOTE | 2017-06-04 15:05 | Diagnostic Imaging Report ---
Indication: Reason For Exam: SOB Technique: One view of the chest Comparison: 06/03/2017 Findings: Patient's chin obscures the upper mediastinum. Atelectasis and pleural fluid at the left lung base persists. Cardiomegaly persists. There is suggestion of increased vascular congestion Impression: Slightly increased interstitial congestion, over one day Other stable findings as described
[2017-06-04 16:00] VITALS: BP 100/67
--- NOTE | 2017-06-04 19:11 | Cardiology Progress Note ---
Assessment/Plan Assessment/Plan 1. Respiratory failure. 2. RV hypokinesis / dilation 3. normal lv systolic function 4. Mitral regurgitation mild 5. Pulmonary hypertension possibly chronic 6. Morbid obesity. 7. Systemic hypertension. 8. Renal failure and hyperkalemia extubated on bipap oxygenation better echo reviewed no shunting by bubble study echo no sig mr lv function seems fine rv is hypokinetic and dilated on echo done last week and limited today also confirmed rv hypo and dialtion off bipap on sdu i dont see a major cause e of secondary pulm htn related to cardiac function even his diastolic function parameter seem ok i suspect more of a pulm issue as a cause of pulm htn rather a secondary cardiac s/p diuretics seem ok Subjective Cardiovascular: Denies: chest pain, irregular heart rate, lightheadedness Respiratory: Denies: shortness of breath Gastrointestinal/Abdominal: Denies: abdominal pain Genitourinary: Denies: burning Objective Last 24 Hour Vital Signs Date Time Temp Pulse Resp B/P (MAP) Pulse Ox O2 Delivery O2 Flow Rate FiO2 06/04/17 18:41 69 06/04/17 16:00 97.5 98 23 100/67 93 Nasal Cannula 2.0 98 98 06/04/17 15:21 84 24 96 Facial 40 06/04/17 13:29 84 23 96 Facial 40 06/04/17 12:00 97.7 88 23 135/64 97 Nasal Cannula 2.0 88 88 06/04/17 12:00 89 06/04/17 10:33 86 23 97 Facial 40 06/04/17 10:04 86 23 97 Facial 40 06/04/17 08:58 98 135/87 06/04/17 08:00 97.7 98 21 135/87 90 Nasal Cannula 21 98 06/04/17 08:00 98 06/04/17 04:00 97.3 97 21 125/73 93 Nasal Cannula 2.0 96 06/04/17 04:00 102 06/04/17 00:00 98.6 104 21 140/85 93 Nasal Cannula 2.0 96 06/03/17 22:00 3.0 06/03/17 20:40 100 140/90 06/03/17 20:00 97.3 100 21 145/90 93 Nasal Cannula 2.0 96 06/03/17 20:00 102 General Appearance: no apparent distress, alert, obese Neck: supple Cardiovascular: regular rhythm, regularly irregular Respiratory/Chest: lungs clear Abdomen: normal bowel sounds, non tender, soft Extremities: trace edema Intake and Output 06/03/17 06/04/17 19:00 07:00 Intake Total 240 ml Output Total 250 ml Balance -10 ml Intake Oral 240 ml Output Urine Total 250 ml # Voids 4 # Bowel Movements 1 Laboratory Tests Test 06/04/17 03:05 06/04/17 09:45 White Blood Count 5.7 K/UL (4.8-10.8) Red Blood Count 7.09 M/UL (4.70-6.10) H Hemoglobin 15.5 G/DL (14.2-18.0) Hematocrit 52.3 % (42.0-52.0) H Mean Corpuscular Volume 74 FL (80-99) L Mean Corpuscular Hemoglobin 21.8 PG (27.0-31.0) L Mean Corpuscular Hemoglobin Concent 29.6 G/DL (32.0-36.0) L Red Cell Distribution Width 19.4 % (11.6-14.8) H Platelet Count 180 K/UL (150-450) Mean Platelet Volume 9.0 FL (6.5-10.1) Neutrophils (%) (Auto) 66.6 % (45.0-75.0) Lymphocytes (%) (Auto) 9.7 % (20.0-45.0) L Monocytes (%) (Auto) 18.5 % (1.0-10.0) H Eosinophils (%) (Auto) 4.4 % (0.0-3.0) H Basophils (%) (Auto) 0.8 % (0.0-2.0) Sodium Level 139 MMOL/L (136-145) Potassium Level 5.2 MMOL/L (3.5-5.1) H Chloride Level 107 MMOL/L (98-107) Carbon Dioxide Level 30 MMOL/L (21-32) Anion Gap 2 mmol/L (5-15) L Blood Urea Nitrogen 30 mg/dL (7-18) H Creatinine 1.4 MG/DL (0.55-1.30) H Estimat Glomerular Filtration Rate > 60 mL/min (>60) Glucose Level 96 MG/DL (74-106) Calcium Level 8.6 MG/DL (8.5-10.1) Arterial Blood pH 7.210 (7.350-7.450) Arterial Blood Partial Pressure CO2 65.0 mmHg (35.0-45.0) *H Arterial Blood Partial Pressure O2 63.1 mmHg (75.0-100.0) L Arterial Blood HCO3 25.4 mmol/L (22.0-26.0) Arterial Blood Oxygen Saturation 88.6 % (92.0-98.0) L Arterial Blood Base Excess -4.0 [place] Test Positive Microbiology Date/Time Source Procedure Growth Status 06/02/17 00:30 Sputum Gram Stain - Final Complete 06/02/17 00:30 Sputum Sputum Culture - Final NORMAL UPPER RESPIRATORY YANI PRESENT Complete ABHISHEK BYRD Jun 04, 2017 19:11
[2017-06-04 20:00] VITALS: BP 131/84
[2017-06-04] MEDS: Carvedilol 12.5mg tab ORAL SCH (20:42)
[2017-06-05 00:17] VITALS: BP 122/82
[2017-06-05 04:23] VITALS: BP 143/63
[2017-06-05 08:00] VITALS: BP 133/74
[2017-06-05] MEDS: Carvedilol 12.5mg tab ORAL SCH ×2 (08:19→21:16)
[2017-06-05] MEDS: Theophylline ER 100mg ORAL SCH ×2 (08:19→21:16)
--- NOTE | 2017-06-05 11:52 | Nephrology Progress Note ---
Assessment/Plan Problem List: (1) Nephrotic syndrome (2) ATN (acute tubular necrosis) Assessment: Cr improved (3) Respiratory arrest Assessment: previously intubated and now extubated (4) HTN (hypertension) (5) ACS (acute coronary syndrome) (6) COPD exacerbation Assessment now extubated in [facility] - ARF Cr 1.6 - 2.0 - 1.7 now 1.4 - CKD underlying - Fluid overloud - morbid obesity - COPD / CHF / sleep apnea ? - HTN troponin leak Plan no labs today- down on Diamox increase Coreg UA Keep BP and BS in check Pulmonary support avoid Nephrotoxics slow diuresis 24 h urine protein 25 gram in 24 H urine Subjective ROS Limited/Unobtainable: No Constitutional: Reports: malaise Objective Objective Last 24 Hour Vital Signs Date Time Temp Pulse Resp B/P (MAP) Pulse Ox O2 Delivery O2 Flow Rate FiO2 06/05/17 09:00 86 22 95 Facial 40 06/05/17 08:19 86 133/74 06/05/17 08:00 86 22 93 Facial 40 06/05/17 08:00 98.1 91 20 133/74 91 Nasal Cannula 3.0 06/05/17 04:50 92 28 96 Facial 40 06/05/17 04:23 97.9 91 21 143/63 91 91 91 06/05/17 01:08 85 16 98 Facial 40 06/05/17 00:17 97.9 96 21 122/82 91 96 96 06/05/17 00:00 40 06/04/17 23:29 88 22 97 Facial 40 06/04/17 22:00 3.0 06/04/17 20:42 96 131/84 06/04/17 20:00 97.9 86 23 131/84 90 Nasal Cannula 2.0 86 86 06/04/17 18:41 69 06/04/17 16:00 97.5 98 23 100/67 93 Nasal Cannula 2.0 98 98 06/04/17 15:21 84 24 96 Facial 40 06/04/17 13:29 84 23 96 Facial 40 06/04/17 12:00 97.7 88 23 135/64 97 Nasal Cannula 2.0 88 88 06/04/17 12:00 89 Intake and Output 06/04/17 06/05/17 19:00 07:00 # Voids 4 # Bowel Movements 1 Height (Feet): 5 Height (Inches): 7.00 Weight (Pounds): 261 General Appearance: no apparent distress, lethargic Cardiovascular: tachycardia Respiratory/Chest: decreased breath sounds Abdomen: other - obese Objective no other changes GIOVANNI ARMANDO Jun 05, 2017 11:52
[2017-06-05 12:00] VITALS: BP 108/69
--- NOTE | 2017-06-05 13:44 | Infectious Diseases Prog Note ---
Assessment/Plan Assessment/Plan Assessment: Acute hypoxic/hypercapneic resp failure- likely multifacotrial 2ry to COPD/CHF exacerbation, pHTN, ?obesity hypoventilation syndrome and PNA- extubated now on BIpap -CXR 05/31: Persistent patchy bilateral lower lung airspace opacities and small left pleural effusion. -CTA chest 05/29: Negative for acute pulmonary embolus or other acute thoracic vascular pathology. Pulmonary arterial dilatation, likely indicating chronic pulmonary arterial hypertension. Moderate-sized right and small left pleural effusions. Complete atelectasis and consolidation of both lower lobes. Mild interstitial congestion and hazy groundglass opacity of the aerated portions of the lungs, likely reflecting pulmonary edema. Endotracheal and nasogastric tubes pericardial thickening versus fluid, minimal. Degenerative spondylosis -sp Cx normal fly -CXR 05/28: Improved but persistent parenchymal consolidation or edema, over one day -influenza test ordered, never done; treated empirically -legionella ag urine neg Low grade fever x1 -no leukocytosis CAITLIN on CKD, improving CHF recent SAM sx (not yet on Bipap) HTN pHTN Mitral regurgitation med non compliance morbid obesity recent R tibial region injury Plan: -Continue to monitor off abx -06/01 SP Tamiflu #5, Levaquin #5, Ceftriaxone #2 -05/31 SP Zosyn #6, IV Vanco #3 -Monitor CBC/BMP, temperatures -aspiration precautions Thank you for this consultation. Will continue to follow along with you. Discussed with RN Subjective Allergies: Coded Allergies: No Known Allergies (Unverified , 07/23/16) Subjective afebrile no leukocytosis off abx at 2l NC Objective Vital Signs Last 24 Hour Vital Signs Date Time Temp Pulse Resp B/P (MAP) Pulse Ox O2 Delivery O2 Flow Rate FiO2 06/05/17 12:00 97.7 80 20 108/69 93 Nasal Cannula 4.0 06/05/17 09:00 86 22 95 Facial 40 06/05/17 08:19 86 133/74 06/05/17 08:00 86 22 93 Facial 40 06/05/17 08:00 98.1 91 20 133/74 91 Nasal Cannula 3.0 06/05/17 04:50 92 28 96 Facial 40 06/05/17 04:23 97.9 91 21 143/63 91 91 91 06/05/17 01:08 85 16 98 Facial 40 06/05/17 00:17 97.9 96 21 122/82 91 96 96 06/05/17 00:00 40 06/04/17 23:29 88 22 97 Facial 40 06/04/17 22:00 3.0 06/04/17 20:42 96 131/84 06/04/17 20:00 97.9 86 23 131/84 90 Nasal Cannula 2.0 86 86 06/04/17 18:41 69 06/04/17 16:00 97.5 98 23 100/67 93 Nasal Cannula 2.0 98 98 06/04/17 15:21 84 24 96 Facial 40 Height (Feet): 5 Height (Inches): 7.00 Weight (Pounds): 261 Objective GENERAL: Shows to be middle-aged gentleman, on bipap NECK: Supple. LUNGS: Decreased breath sounds noted bilaterally CARDIAC: Regular rate and rhythm. ABDOMEN: Obese. Positive bowel sounds. Nontender. EXTREMITIES: +edema SKIN: no rashes Current Medications Medications (Trade) Dose Ordered Sig/Judy Route PRN Reason Start Time Stop Time Status Last Admin Dose Admin Acetazolamide (Diamox) 250 mg DAILY ORAL 06/05/17 09:00 06/29/17 17:59 06/05/17 09:14 Albuterol/ Ipratropium (Albuterol/ Ipratropium) 3 ml Q4H PRN HHN SHORTNESS OF BREATH 06/02/17 13:45 06/07/17 13:44 Carvedilol (Coreg) 12.5 mg EVERY 12 HOURS ORAL 06/04/17 21:00 07/04/17 20:59 06/05/17 08:19 Dextrose (Dextrose 50%) STAT PRN IV Hypoglycemia 05/27/17 18:30 06/26/17 18:29 Lansoprazole (Prevacid) 30 mg DAILY ORAL 06/05/17 09:00 07/05/17 08:59 06/05/17 08:19 Lorazepam (Ativan 2mg/ml 1ml) 2 mg Q4H PRN IV For Anxiety 06/02/17 14:00 06/08/17 13:59 Morphine Sulfate (Morphine Sulfate) 4 mg Q4H PRN IVP PAIN 4-10 06/02/17 14:00 06/08/17 13:59 Nitroglycerin (Ntg) 0.4 mg Q5M X 3 DOSES PRN SL Prn Chest Pain 05/27/17 18:30 06/25/17 18:29 Ondansetron HCl (Zofran) 4 mg Q6H PRN IVP Nausea & Vomiting 05/27/17 18:30 06/25/17 18:29 Temazepam (Restoril) 15 mg HSPRN PRN ORAL Insomnia 06/02/17 14:00 06/08/17 13:59 Theophylline (Frandy-Dur) 100 mg EVERY 12 HOURS ORAL 05/27/17 21:00 06/25/17 20:59 06/05/17 08:19 Elma Paris M.D. Jun 05, 2017 13:44
[2017-06-05 16:00] VITALS: BP 112/63
--- NOTE | 2017-06-05 19:48 | Pulmonology Progress Note ---
Assessment/Plan Problems: (1) Respiratory distress (2) CHF (congestive heart failure) (3) HTN (hypertension) Assessment/Plan doesnt watn bipap cop2 is still ghigh renal function improving p/ot evaluation again. dc planning pt desaturated to 83 on room air. will need oxygen at home Subjective ROS Limited/Unobtainable: No Constitutional: Reports: no symptoms HEENT: Repors: no symptoms Allergies: Coded Allergies: No Known Allergies (Unverified , 07/23/16) Objective Last 24 Hour Vital Signs Date Time Temp Pulse Resp B/P (MAP) Pulse Ox O2 Delivery O2 Flow Rate FiO2 06/05/17 16:00 98.2 85 18 112/63 91 Nasal Cannula 2.0 06/05/17 12:00 97.7 80 20 108/69 93 Nasal Cannula 4.0 06/05/17 09:00 86 22 95 Facial 40 06/05/17 08:19 86 133/74 06/05/17 08:00 86 22 93 Facial 40 06/05/17 08:00 98.1 91 20 133/74 91 Nasal Cannula 3.0 06/05/17 04:50 92 28 96 Facial 40 06/05/17 04:23 97.9 91 21 143/63 91 91 91 06/05/17 01:08 85 16 98 Facial 40 06/05/17 00:17 97.9 96 21 122/82 91 96 96 06/05/17 00:00 40 06/04/17 23:29 88 22 97 Facial 40 06/04/17 22:00 3.0 06/04/17 20:42 96 131/84 06/04/17 20:00 97.9 86 23 131/84 90 Nasal Cannula 2.0 86 86 Intake and Output 06/04/17 06/05/17 19:00 07:00 # Voids 4 # Bowel Movements 1 General Appearance: WD/WN, no acute distress HEENT: normocephalic Respiratory/Chest: chest wall non-tender, lungs clear Cardiovascular: normal peripheral pulses, regular rhythm Abdomen: normal bowel sounds, soft, non tender Genitourinary: normal external genitalia Extremities: no cyanosis Neurologic/Psychiatric: brim buster II-XII grossly normal, no motor/sensory deficits Current Medications Medications (Trade) Dose Ordered Sig/Judy Route PRN Reason Start Time Stop Time Status Last Admin Dose Admin Acetazolamide (Diamox) 250 mg DAILY ORAL 06/05/17 09:00 06/29/17 17:59 06/05/17 09:14 Albuterol/ Ipratropium (Albuterol/ Ipratropium) 3 ml Q4H PRN HHN SHORTNESS OF BREATH 06/02/17 13:45 06/07/17 13:44 Carvedilol (Coreg) 12.5 mg EVERY 12 HOURS ORAL 06/04/17 21:00 07/04/17 20:59 06/05/17 08:19 Dextrose (Dextrose 50%) STAT PRN IV Hypoglycemia 05/27/17 18:30 06/26/17 18:29 Lansoprazole (Prevacid) 30 mg DAILY ORAL 06/05/17 09:00 07/05/17 08:59 06/05/17 08:19 Lorazepam (Ativan 2mg/ml 1ml) 2 mg Q4H PRN IV For Anxiety 06/02/17 14:00 06/08/17 13:59 Morphine Sulfate (Morphine Sulfate) 4 mg Q4H PRN IVP PAIN 4-10 06/02/17 14:00 06/08/17 13:59 Nitroglycerin (Ntg) 0.4 mg Q5M X 3 DOSES PRN SL Prn Chest Pain 05/27/17 18:30 06/25/17 18:29 Ondansetron HCl (Zofran) 4 mg Q6H PRN IVP Nausea & Vomiting 05/27/17 18:30 06/25/17 18:29 Temazepam (Restoril) 15 mg HSPRN PRN ORAL Insomnia 06/02/17 14:00 06/08/17 13:59 Theophylline (Frandy-Dur) 100 mg EVERY 12 HOURS ORAL 05/27/17 21:00 06/25/17 20:59 06/05/17 08:19 KEITH CHONG Jun 05, 2017 19:47
[2017-06-05 20:00] VITALS: BP 138/84
[2017-06-06] VITALS: BP 125/73
[2017-06-06 04:00] VITALS: BP 119/77
[2017-06-06 08:00] VITALS: BP 126/80
[2017-06-06 09:22] LABS: BASOPHILS % (AUTO) 0.7 % (0.0-2.0); EOSINOPHILS % (AUTO) 1.4 % (0.0-3.0); HEMATOCRIT 53.1 % (42.0-52.0); HEMOGLOBIN 15.4 G/DL (14.2-18.0); LYMPHOCYTES % (AUTO) 11.3 % (20.0-45.0); MEAN CORPUSCULAR VOLUME 75 FL (80-99); MONOCYTES % (AUTO) 8.4 % (1.0-10.0); NEUTROPHILS % (AUTO) 78.2 % (45.0-75.0); PLATELET COUNT 220 K/UL (150-450); RED BLOOD COUNT 7.06 M/UL (4.70-6.10); RED CELL DISTRIBUTION WIDTH 19.3 % (11.6-14.8); WHITE BLOOD COUNT 6.7 K/UL (4.8-10.8)
[2017-06-06] MEDS: Theophylline ER 100mg ORAL SCH ×2 (09:33→21:01)
[2017-06-06] MEDS: Carvedilol 12.5mg tab ORAL SCH ×2 (09:34→21:01)
[2017-06-06 09:45] LABS: ALANINE AMINOTRANSFERASE 35 U/L (12-78); ALBUMIN 2.8 G/DL (3.4-5.0); ALBUMIN/GLOBULIN RATIO 0.6 (1.0-2.7); ALKALINE PHOSPHATASE 115 U/L (46-116); ANION GAP 8 mmol/L (5-15); ASPARTATE AMINO TRANSFERASE 39 U/L (15-37); BILIRUBIN,TOTAL 0.7 MG/DL (0.2-1.0); BLOOD UREA NITROGEN 27 mg/dL (7-18); CALCIUM 8.7 MG/DL (8.5-10.1); CARBON DIOXIDE 24 MMOL/L (21-32); CHLORIDE 106 MMOL/L (98-107); CREATININE 1.4 MG/DL (0.55-1.30); POTASSIUM 5.3 MMOL/L (3.5-5.1); SODIUM 138 MMOL/L (136-145)
[2017-06-06 11:42] VITALS: BP 127/77
[2017-06-06] MEDS: Furosemide 40mg tab ORAL SCH ×2 (11:49→21:01)
--- NOTE | 2017-06-06 15:01 | Nephrology Progress Note ---
Assessment/Plan Problem List: (1) Nephrotic syndrome (2) ATN (acute tubular necrosis) Assessment: Cr improved (3) Respiratory arrest Assessment: previously intubated and now extubated (4) HTN (hypertension) (5) ACS (acute coronary syndrome) (6) COPD exacerbation Assessment now extubated in med-surg K of 5.3 likely hemolysis - ARF Cr 1.6 - 2.0 - 1.7 now 1.4 - CKD underlying - Fluid overloud - morbid obesity - COPD / CHF / sleep apnea ? - HTN troponin leak Plan down on Diamox increase Coreg UA on Lasix Keep BP and BS in check Pulmonary support avoid Nephrotoxics slow diuresis 24 h urine protein 25 gram in 24 H urine Subjective ROS Limited/Unobtainable: No Constitutional: Reports: malaise, weakness Objective Objective Last 24 Hour Vital Signs Date Time Temp Pulse Resp B/P (MAP) Pulse Ox O2 Delivery O2 Flow Rate FiO2 06/06/17 12:30 100 20 Nasal Cannula 4.0 36 06/06/17 11:42 98.6 86 20 127/77 97 06/06/17 09:34 100 126/80 06/06/17 08:38 100 18 98 Nasal Cannula 4.0 36 06/06/17 08:30 101 16 92 Nasal Cannula 4.0 36 06/06/17 08:30 36 06/06/17 08:00 95.7 108 22 126/80 92 06/06/17 04:34 Nasal Cannula 4.0 06/06/17 04:00 97.0 92 20 119/77 94 06/06/17 00:48 Bi-pap 06/06/17 00:20 87 22 95 Facial 40 06/06/17 00:00 97.3 103 20 125/73 95 06/05/17 21:16 90 138/84 06/05/17 20:20 Nasal Cannula 4.0 06/05/17 20:00 97.0 90 20 138/84 95 06/05/17 16:00 98.2 85 18 112/63 91 Nasal Cannula 2.0 Intake and Output 06/05/17 06/06/17 19:00 07:00 Intake Total 840 ml Output Total 200 ml Balance 640 ml Intake Oral 840 ml Output Urine Total 200 ml # Voids 2 Laboratory Tests 06/06/17 07:42: White Blood Count 6.7, Red Blood Count 7.06H, Hemoglobin 15.4, Hematocrit 53.1H , Mean Corpuscular Volume 75L, Mean Corpuscular Hemoglobin 21.8L, Mean Corpuscular Hemoglobin Concent 28.9L, Red Cell Distribution Width 19.3H, Platelet Count 220, Mean Platelet Volume 9.8, Neutrophils (%) (Auto) 78.2H, Lymphocytes (%) (Auto) 11.3L, Monocytes (%) (Auto) 8.4, Eosinophils (%) (Auto) 1.4, Basophils (%) (Auto) 0.7, Sodium Level 138, Potassium Level 5.3H, Chloride Level 106, Carbon Dioxide Level 24, Anion Gap 8, Blood Urea Nitrogen 27H, Creatinine 1.4H, Estimat Glomerular Filtration Rate > 60, Glucose Level 97, Uric Acid 5.3, Calcium Level 8.7, Phosphorus Level 3.0, Magnesium Level 2.2, Total Bilirubin 0.7, Aspartate Amino Transf (AST/SGOT) 39H, Alanine Aminotransferase (ALT/SGPT) 35, Alkaline Phosphatase 115, C-Reactive Protein, Quantitative 2.3H, Pro-B-Type Natriuretic Peptide 5544H, Total Protein 7.2, Albumin 2.8L, Globulin 4.4, Albumin/Globulin Ratio 0.6L Height (Feet): 5 Height (Inches): 7.00 Weight (Pounds): 260 General Appearance: no apparent distress, lethargic Cardiovascular: tachycardia Respiratory/Chest: decreased breath sounds Abdomen: distended, other - obese Objective no other changes GIOVANNI ARMANDO Jun 06, 2017 15:01
[2017-06-06 16:00] VITALS: BP 141/84
--- NOTE | 2017-06-06 16:36 | Infectious Diseases Prog Note ---
Assessment/Plan Assessment/Plan Assessment: Acute hypoxic/hypercapneic resp failure- likely multifacotrial 2ry to COPD/CHF exacerbation, pHTN, ?obesity hypoventilation syndrome and PNA- extubated > Bipap , now weaned to NC -s/p Tx for PNA and empiric for Flu -CXR 05/31: Persistent patchy bilateral lower lung airspace opacities and small left pleural effusion. -CTA chest 05/29: Negative for acute pulmonary embolus or other acute thoracic vascular pathology. Pulmonary arterial dilatation, likely indicating chronic pulmonary arterial hypertension. Moderate-sized right and small left pleural effusions. Complete atelectasis and consolidation of both lower lobes. Mild interstitial congestion and hazy groundglass opacity of the aerated portions of the lungs, likely reflecting pulmonary edema. Endotracheal and nasogastric tubes pericardial thickening versus fluid, minimal. Degenerative spondylosis -sp Cx normal fly -CXR 05/28: Improved but persistent parenchymal consolidation or edema, over one day -influenza test ordered, never done; treated empirically -legionella ag urine neg Low grade fever x1 -no leukocytosis CAITLIN on CKD, improving CHF recent SAM sx (not yet on Bipap) HTN pHTN Mitral regurgitation med non compliance morbid obesity recent R tibial region injury Plan: -Continue to monitor off abx -2/ SP Tamiflu #5, Levaquin #5, Ceftriaxone #2 -2/ SP Zosyn #6, IV Vanco #3 -Monitor CBC/BMP, temperatures -aspiration precautions Thank you for this consultation. Will continue to follow along with you. Discussed with RN Subjective Allergies: Coded Allergies: No Known Allergies (Unverified , 07/23/16) Subjective afebrile no leukocytosis off abx at 2l NC Objective Vital Signs Last 24 Hour Vital Signs Date Time Temp Pulse Resp B/P (MAP) Pulse Ox O2 Delivery O2 Flow Rate FiO2 06/06/17 16:00 97.9 81 20 141/84 98 06/06/17 12:30 100 20 Nasal Cannula 4.0 36 06/06/17 11:42 98.6 86 20 127/77 97 06/06/17 09:34 100 126/80 06/06/17 08:38 100 18 98 Nasal Cannula 4.0 36 06/06/17 08:30 101 16 92 Nasal Cannula 4.0 36 06/06/17 08:30 36 06/06/17 08:00 95.7 108 22 126/80 92 06/06/17 04:34 Nasal Cannula 4.0 06/06/17 04:00 97.0 92 20 119/77 94 06/06/17 00:48 Bi-pap 06/06/17 00:20 87 22 95 Facial 40 06/06/17 00:00 97.3 103 20 125/73 95 06/05/17 21:16 90 138/84 06/05/17 20:20 Nasal Cannula 4.0 06/05/17 20:00 97.0 90 20 138/84 95 Height (Feet): 5 Height (Inches): 7.00 Weight (Pounds): 260 Objective GENERAL: Shows to be middle-aged gentleman, on bipap NECK: Supple. LUNGS: Decreased breath sounds noted bilaterally CARDIAC: Regular rate and rhythm. ABDOMEN: Obese. Positive bowel sounds. Nontender. EXTREMITIES: +edema SKIN: no rashes Laboratory Tests Test 06/06/17 07:42 White Blood Count 6.7 K/UL (4.8-10.8) Red Blood Count 7.06 M/UL (4.70-6.10) H Hemoglobin 15.4 G/DL (14.2-18.0) Hematocrit 53.1 % (42.0-52.0) H Mean Corpuscular Volume 75 FL (80-99) L Mean Corpuscular Hemoglobin 21.8 PG (27.0-31.0) L Mean Corpuscular Hemoglobin Concent 28.9 G/DL (32.0-36.0) L Red Cell Distribution Width 19.3 % (11.6-14.8) H Platelet Count 220 K/UL (150-450) Mean Platelet Volume 9.8 FL (6.5-10.1) Neutrophils (%) (Auto) 78.2 % (45.0-75.0) H Lymphocytes (%) (Auto) 11.3 % (20.0-45.0) L Monocytes (%) (Auto) 8.4 % (1.0-10.0) Eosinophils (%) (Auto) 1.4 % (0.0-3.0) Basophils (%) (Auto) 0.7 % (0.0-2.0) Sodium Level 138 MMOL/L (136-145) Potassium Level 5.3 MMOL/L (3.5-5.1) H Chloride Level 106 MMOL/L (98-107) Carbon Dioxide Level 24 MMOL/L (21-32) Anion Gap 8 mmol/L (5-15) Blood Urea Nitrogen 27 mg/dL (7-18) H Creatinine 1.4 MG/DL (0.55-1.30) H Estimat Glomerular Filtration Rate > 60 mL/min (>60) Glucose Level 97 MG/DL (74-106) Uric Acid 5.3 MG/DL (2.6-7.2) Calcium Level 8.7 MG/DL (8.5-10.1) Phosphorus Level 3.0 MG/DL (2.5-4.9) Magnesium Level 2.2 MG/DL (1.8-2.4) Total Bilirubin 0.7 MG/DL (0.2-1.0) Aspartate Amino Transf (AST/SGOT) 39 U/L (15-37) H Alanine Aminotransferase (ALT/SGPT) 35 U/L (12-78) Alkaline Phosphatase 115 U/L (46-116) C-Reactive Protein, Quantitative 2.3 mg/dL (0.00-0.90) H Pro-B-Type Natriuretic Peptide 5544 pg/mL (0-125) H Total Protein 7.2 G/DL (6.4-8.2) Albumin 2.8 G/DL (3.4-5.0) L Globulin 4.4 g/dL Albumin/Globulin Ratio 0.6 (1.0-2.7) L Current Medications Medications (Trade) Dose Ordered Sig/Judy Route PRN Reason Start Time Stop Time Status Last Admin Dose Admin Albuterol/ Ipratropium (Albuterol/ Ipratropium) 3 ml Q4H PRN HHN SHORTNESS OF BREATH 06/02/17 13:45 06/07/17 13:44 06/06/17 08:38 Carvedilol (Coreg) 12.5 mg EVERY 12 HOURS ORAL 06/04/17 21:00 07/04/17 20:59 06/06/17 09:34 Dextrose (Dextrose 50%) STAT PRN IV Hypoglycemia 05/27/17 18:30 06/26/17 18:29 Furosemide (Lasix) 40 mg EVERY 12 HOURS ORAL 06/06/17 11:15 07/06/17 11:14 06/06/17 11:49 Lansoprazole (Prevacid) 30 mg DAILY ORAL 06/05/17 09:00 07/05/17 08:59 06/06/17 09:33 Lorazepam (Ativan 2mg/ml 1ml) 2 mg Q4H PRN IV For Anxiety 06/02/17 14:00 06/08/17 13:59 Morphine Sulfate (Morphine Sulfate) 4 mg Q4H PRN IVP PAIN 4-10 06/02/17 14:00 06/08/17 13:59 Nitroglycerin (Ntg) 0.4 mg Q5M X 3 DOSES PRN SL Prn Chest Pain 05/27/17 18:30 06/25/17 18:29 Ondansetron HCl (Zofran) 4 mg Q6H PRN IVP Nausea & Vomiting 05/27/17 18:30 06/25/17 18:29 Temazepam (Restoril) 15 mg HSPRN PRN ORAL Insomnia 06/02/17 14:00 06/08/17 13:59 06/05/17 23:31 Theophylline (Frandy-Dur) 100 mg EVERY 12 HOURS ORAL 05/27/17 21:00 06/25/17 20:59 06/06/17 09:33 Elma Paris M.D. Jun 06, 2017 16:36
--- NOTE | 2017-06-06 17:29 | Pulmonology Progress Note ---
Assessment/Plan Problems: (1) Respiratory distress (2) CHF (congestive heart failure) (3) HTN (hypertension) Assessment/Plan off bipap cop2 is still ghigh renal function improving p/ot evaluation again. increase lasix dc planning pt desaturated to 83 on room air. will need oxygen at home Subjective ROS Limited/Unobtainable: No Allergies: Coded Allergies: No Known Allergies (Unverified , 07/23/16) Objective Last 24 Hour Vital Signs Date Time Temp Pulse Resp B/P (MAP) Pulse Ox O2 Delivery O2 Flow Rate FiO2 06/06/17 16:00 97.9 81 20 141/84 98 06/06/17 12:30 100 20 Nasal Cannula 4.0 36 06/06/17 11:42 98.6 86 20 127/77 97 06/06/17 09:34 100 126/80 06/06/17 08:38 100 18 98 Nasal Cannula 4.0 36 06/06/17 08:30 101 16 92 Nasal Cannula 4.0 36 06/06/17 08:30 36 06/06/17 08:00 95.7 108 22 126/80 92 06/06/17 04:34 Nasal Cannula 4.0 06/06/17 04:00 97.0 92 20 119/77 94 06/06/17 00:48 Bi-pap 06/06/17 00:20 87 22 95 Facial 40 06/06/17 00:00 97.3 103 20 125/73 95 06/05/17 21:16 90 138/84 06/05/17 20:20 Nasal Cannula 4.0 06/05/17 20:00 97.0 90 20 138/84 95 Intake and Output 06/05/17 06/06/17 19:00 07:00 Intake Total 840 ml Output Total 200 ml Balance 640 ml Intake Oral 840 ml Output Urine Total 200 ml # Voids 2 Objective General Appearance: WD/WN HEENT: normocephalic, atraumatic Respiratory/Chest: chest wall non-tender, lungs clear Cardiovascular: normal peripheral pulses, normal rate Genitourinary: normal external genitalia Extremities: no clubbing Neurologic/Psychiatric: front end assistant II-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 grossly normal, abnormal gait Laboratory Tests 06/06/17 07:42: White Blood Count 6.7, Red Blood Count 7.06H, Hemoglobin 15.4, Hematocrit 53.1H , Mean Corpuscular Volume 75L, Mean Corpuscular Hemoglobin 21.8L, Mean Corpuscular Hemoglobin Concent 28.9L, Red Cell Distribution Width 19.3H, Platelet Count 220, Mean Platelet Volume 9.8, Neutrophils (%) (Auto) 78.2H, Lymphocytes (%) (Auto) 11.3L, Monocytes (%) (Auto) 8.4, Eosinophils (%) (Auto) 1.4, Basophils (%) (Auto) 0.7, Sodium Level 138, Potassium Level 5.3H, Chloride Level 106, Carbon Dioxide Level 24, Anion Gap 8, Blood Urea Nitrogen 27H, Creatinine 1.4H, Estimat Glomerular Filtration Rate > 60, Glucose Level 97, Uric Acid 5.3, Calcium Level 8.7, Phosphorus Level 3.0, Magnesium Level 2.2, Total Bilirubin 0.7, Aspartate Amino Transf (AST/SGOT) 39H, Alanine Aminotransferase (ALT/SGPT) 35, Alkaline Phosphatase 115, C-Reactive Protein, Quantitative 2.3H, Pro-B-Type Natriuretic Peptide 5544H, Total Protein 7.2, Albumin 2.8L, Globulin 4.4, Albumin/Globulin Ratio 0.6L Current Medications Medications (Trade) Dose Ordered Sig/Judy Route PRN Reason Start Time Stop Time Status Last Admin Dose Admin Albuterol/ Ipratropium (Albuterol/ Ipratropium) 3 ml Q4H PRN HHN SHORTNESS OF BREATH 06/02/17 13:45 06/07/17 13:44 06/06/17 08:38 Carvedilol (Coreg) 12.5 mg EVERY 12 HOURS ORAL 06/04/17 21:00 07/04/17 20:59 06/06/17 09:34 Dextrose (Dextrose 50%) STAT PRN IV Hypoglycemia 05/27/17 18:30 06/26/17 18:29 Furosemide (Lasix) 40 mg EVERY 12 HOURS ORAL 06/06/17 11:15 07/06/17 11:14 06/06/17 11:49 Lansoprazole (Prevacid) 30 mg DAILY ORAL 06/05/17 09:00 07/05/17 08:59 06/06/17 09:33 Lorazepam (Ativan 2mg/ml 1ml) 2 mg Q4H PRN IV For Anxiety 06/02/17 14:00 06/08/17 13:59 Morphine Sulfate (Morphine Sulfate) 4 mg Q4H PRN IVP PAIN 4-10 06/02/17 14:00 06/08/17 13:59 Nitroglycerin (Ntg) 0.4 mg Q5M X 3 DOSES PRN SL Prn Chest Pain 05/27/17 18:30 06/25/17 18:29 Ondansetron HCl (Zofran) 4 mg Q6H PRN IVP Nausea & Vomiting 05/27/17 18:30 06/25/17 18:29 Temazepam (Restoril) 15 mg HSPRN PRN ORAL Insomnia 06/02/17 14:00 06/08/17 13:59 06/05/17 23:31 Theophylline (Frandy-Dur) 100 mg EVERY 12 HOURS ORAL 05/27/17 21:00 06/25/17 20:59 06/06/17 09:33 KEITH CHONG Jun 06, 2017 17:29
[2017-06-06 20:30] VITALS: BP 151/74
[2017-06-07] VITALS (7 sets, daily range): BP systolic 116–149; BP diastolic 60–89
[2017-06-07] MEDS: Furosemide 40mg tab ORAL SCH ×2 (09:39→20:40)
[2017-06-07] MEDS: Carvedilol 12.5mg tab ORAL SCH ×2 (09:39→20:41)
[2017-06-07] MEDS: Theophylline ER 100mg ORAL SCH ×2 (09:39→20:40)
--- NOTE | 2017-06-07 11:22 | Nephrology Progress Note ---
Assessment/Plan Problem List: (1) Nephrotic syndrome (2) ATN (acute tubular necrosis) Assessment: Cr improved (3) Respiratory arrest Assessment: previously intubated and now extubated (4) HTN (hypertension) (5) ACS (acute coronary syndrome) (6) COPD exacerbation Assessment now extubated in med-surg K of 5.3 likely hemolysis - ARF Cr 1.6 - 2.0 - 1.7 now 1.4 - CKD underlying - Fluid overloud - morbid obesity - COPD / CHF / sleep apnea ? - HTN troponin leak Plan down on Diamox increase Coreg UA on Lasix Keep BP and BS in check Pulmonary support avoid Nephrotoxics slow diuresis 24 h urine protein 25 gram in 24 H urine Subjective ROS Limited/Unobtainable: No Constitutional: Reports: malaise, weakness Objective Objective Last 24 Hour Vital Signs Date Time Temp Pulse Resp B/P (MAP) Pulse Ox O2 Delivery O2 Flow Rate FiO2 06/07/17 09:39 83 135/72 06/07/17 08:00 97.0 83 20 135/72 91 06/07/17 04:57 103 31 94 Facial 40 06/07/17 04:00 Bi-pap 06/07/17 04:00 97.5 84 19 133/80 99 Room Air 06/07/17 03:03 99 26 95 Facial 40 06/07/17 00:55 93 20 96 Facial 40 06/07/17 00:00 Bi-pap 06/07/17 00:00 98.4 66 18 116/65 98 Room Air 06/06/17 21:01 68 151/74 06/06/17 20:30 97.0 68 18 151/74 96 Nasal Cannula 4.0 06/06/17 16:00 97.9 81 20 141/84 98 06/06/17 12:30 100 20 Nasal Cannula 4.0 36 06/06/17 11:42 98.6 86 20 127/77 97 Intake and Output 06/06/17 06/07/17 19:00 07:00 Intake Total 720 ml 240 ml Output Total 250 ml Balance 470 ml 240 ml Intake Oral 720 ml 240 ml Output Urine Total 250 ml # Voids 5 # Bowel Movements 1 Height (Feet): 5 Height (Inches): 7.00 Weight (Pounds): 260 General Appearance: no apparent distress, lethargic Cardiovascular: normal rate Respiratory/Chest: decreased breath sounds Abdomen: distended Objective no other changes GIOVANNI ARMANDO Jun 07, 2017 11:22
--- NOTE | 2017-06-07 18:47 | Pulmonology Progress Note ---
Assessment/Plan Problems: (1) Respiratory distress (2) CHF (congestive heart failure) (3) HTN (hypertension) Assessment/Plan off bipap cop2 is still ghigh renal function improving p/ot evaluation again. increase lasix dc planning pt desaturated to 83 on room air. will need oxygen at home Subjective Allergies: Coded Allergies: No Known Allergies (Unverified , 07/23/16) Objective Last 24 Hour Vital Signs Date Time Temp Pulse Resp B/P (MAP) Pulse Ox O2 Delivery O2 Flow Rate FiO2 06/07/17 16:00 97.7 72 20 139/89 93 06/07/17 12:01 Nasal Cannula 4.0 06/07/17 12:00 97.5 82 20 119/60 92 06/07/17 09:39 83 135/72 06/07/17 08:01 Nasal Cannula 4.0 06/07/17 08:00 97.0 83 20 135/72 91 06/07/17 04:57 103 31 94 Facial 40 06/07/17 04:00 Bi-pap 06/07/17 04:00 97.5 84 19 133/80 99 Room Air 06/07/17 03:03 99 26 95 Facial 40 06/07/17 00:55 93 20 96 Facial 40 06/07/17 00:00 Bi-pap 06/07/17 00:00 98.4 66 18 116/65 98 Room Air 06/06/17 21:01 68 151/74 06/06/17 20:30 97.0 68 18 151/74 96 Nasal Cannula 4.0 Intake and Output 06/06/17 06/07/17 19:00 07:00 Intake Total 720 ml 240 ml Output Total 250 ml Balance 470 ml 240 ml Intake Oral 720 ml 240 ml Output Urine Total 250 ml # Voids 5 # Bowel Movements 1 Objective General Appearance: WD/WN HEENT: normocephalic, atraumatic Respiratory/Chest: chest wall non-tender, lungs clear Cardiovascular: normal peripheral pulses, normal rate Genitourinary: normal external genitalia Extremities: no clubbing Neurologic/Psychiatric: 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 normal, abnormal gait Current Medications Medications (Trade) Dose Ordered Sig/Judy Route PRN Reason Start Time Stop Time Status Last Admin Dose Admin Carvedilol (Coreg) 12.5 mg EVERY 12 HOURS ORAL 06/04/17 21:00 07/04/17 20:59 2/8/18 09:39 Dextrose (Dextrose 50%) STAT PRN IV Hypoglycemia 05/27/17 18:30 06/26/17 18:29 Furosemide (Lasix) 40 mg EVERY 12 HOURS ORAL 06/06/17 11:15 07/06/17 11:14 06/07/17 09:39 Lansoprazole (Prevacid) 30 mg DAILY ORAL 06/05/17 09:00 07/05/17 08:59 06/07/17 09:39 Lorazepam (Ativan 2mg/ml 1ml) 2 mg Q4H PRN IV For Anxiety 06/02/17 14:00 06/08/17 13:59 Morphine Sulfate (Morphine Sulfate) 4 mg Q4H PRN IVP PAIN 4-10 06/02/17 14:00 06/08/17 13:59 Nitroglycerin (Ntg) 0.4 mg Q5M X 3 DOSES PRN SL Prn Chest Pain 05/27/17 18:30 06/25/17 18:29 Ondansetron HCl (Zofran) 4 mg Q6H PRN IVP Nausea & Vomiting 05/27/17 18:30 06/25/17 18:29 Temazepam (Restoril) 15 mg HSPRN PRN ORAL Insomnia 06/02/17 14:00 06/08/17 13:59 06/05/17 23:31 Theophylline (Frandy-Dur) 100 mg EVERY 12 HOURS ORAL 05/27/17 21:00 06/25/17 20:59 06/07/17 09:39 KEITH CHONG Jun 07, 2017 18:47
[2017-06-08] VITALS: BP 125/68
[2017-06-08 04:00] VITALS: BP 142/91
[2017-06-08 08:00] VITALS: BP 155/104
[2017-06-08] MEDS: Carvedilol 12.5mg tab ORAL SCH (08:43)
[2017-06-08] MEDS: Theophylline ER 100mg ORAL SCH (08:44)
[2017-06-08] MEDS: Furosemide 40mg tab ORAL SCH (08:44)
--- NOTE | 2017-06-08 09:59 | Infectious Diseases Prog Note ---
Assessment/Plan Assessment/Plan Assessment: Acute hypoxic/hypercapneic resp failure- likely multifacotrial 2ry to COPD/CHF exacerbation, pHTN, ?obesity hypoventilation syndrome and PNA- extubated > Bipap , now weaned to NC -s/p Tx for PNA and empiric for Flu -CXR 05/31: Persistent patchy bilateral lower lung airspace opacities and small left pleural effusion. -CTA chest 05/29: Negative for acute pulmonary embolus or other acute thoracic vascular pathology. Pulmonary arterial dilatation, likely indicating chronic pulmonary arterial hypertension. Moderate-sized right and small left pleural effusions. Complete atelectasis and consolidation of both lower lobes. Mild interstitial congestion and hazy groundglass opacity of the aerated portions of the lungs, likely reflecting pulmonary edema. Endotracheal and nasogastric tubes pericardial thickening versus fluid, minimal. Degenerative spondylosis -sp Cx normal fly -CXR 05/28: Improved but persistent parenchymal consolidation or edema, over one day -influenza test ordered, never done; treated empirically -legionella ag urine neg Low grade fever x1 -no leukocytosis CAITLIN on CKD, improving CHF recent SAM sx (not yet on Bipap) HTN pHTN Mitral regurgitation med non compliance morbid obesity recent R tibial region injury Plan: -Continue to monitor off abx -2/ SP Tamiflu #5, Levaquin #5, Ceftriaxone #2 -/ SP Zosyn #6, IV Vanco #3 -Monitor CBC/BMP, temperatures -aspiration precautions Subjective Constitutional: Denies: no symptoms, fever, chills, fatigue, anorexia, drenching sweats, other Allergies: Coded Allergies: No Known Allergies (Unverified , 07/23/16) Objective Vital Signs Last 24 Hour Vital Signs Date Time Temp Pulse Resp B/P (MAP) Pulse Ox O2 Delivery O2 Flow Rate FiO2 06/08/17 08:43 92 142/91 06/08/17 08:00 97.7 82 20 155/104 98 06/08/17 04:00 Nasal Cannula 4.0 06/08/17 04:00 97.5 92 18 142/91 91 Nasal Cannula 06/08/17 00:00 97.3 87 20 125/68 90 Room Air 06/08/17 00:00 Nasal Cannula 4.0 06/07/17 20:41 81 143/88 06/07/17 20:00 Nasal Cannula 4.0 06/07/17 20:00 97.7 81 19 143/88 98 Room Air 06/07/17 16:00 97.7 72 20 139/89 93 06/07/17 12:01 Nasal Cannula 4.0 06/07/17 12:00 97.5 82 20 119/60 92 Height (Feet): 5 Height (Inches): 7.00 Weight (Pounds): 253 HEENT: atraumatic Respiratory/Chest: no accessory muscle use Cardiovascular: regularly irregular Abdomen: no organomegaly Current Medications Medications (Trade) Dose Ordered Sig/Judy Route PRN Reason Start Time Stop Time Status Last Admin Dose Admin Carvedilol (Coreg) 12.5 mg EVERY 12 HOURS ORAL 06/04/17 21:00 07/04/17 20:59 06/08/17 08:43 Dextrose (Dextrose 50%) STAT PRN IV Hypoglycemia 05/27/17 18:30 06/26/17 18:29 Furosemide (Lasix) 40 mg EVERY 12 HOURS ORAL 06/06/17 11:15 07/06/17 11:14 06/08/17 08:44 Lansoprazole (Prevacid) 30 mg DAILY ORAL 06/05/17 09:00 07/05/17 08:59 06/08/17 08:44 Lorazepam (Ativan 2mg/ml 1ml) 2 mg Q4H PRN IV For Anxiety 06/02/17 14:00 06/08/17 13:59 Morphine Sulfate (Morphine Sulfate) 4 mg Q4H PRN IVP PAIN 4-10 06/02/17 14:00 06/08/17 13:59 Nitroglycerin (Ntg) 0.4 mg Q5M X 3 DOSES PRN SL Prn Chest Pain 05/27/17 18:30 06/25/17 18:29 Ondansetron HCl (Zofran) 4 mg Q6H PRN IVP Nausea & Vomiting 05/27/17 18:30 06/25/17 18:29 Temazepam (Restoril) 15 mg HSPRN PRN ORAL Insomnia 06/02/17 14:00 06/08/17 13:59 06/05/17 23:31 Theophylline (Frandy-Dur) 100 mg EVERY 12 HOURS ORAL 05/27/17 21:00 06/25/17 20:59 06/08/17 08:44 BONNIE PROCTOR M.D. Jun 08, 2017 09:59
[2017-06-08 12:00] VITALS: BP 159/99
[2017-06-08] MEDS ORDERED: PREVACID30 MG ORAL (14:59)
[2017-06-08] MEDS ORDERED: THEOPHYLLINE A100 MG ORAL (14:59)
[2017-06-08] MEDS ORDERED: LASIX40 MG ORAL (15:00)
--- NOTE | 2017-06-08 15:10 | Nephrology Progress Note ---
Assessment/Plan Problem List: (1) Nephrotic syndrome (2) ATN (acute tubular necrosis) Assessment: Cr improved (3) Respiratory arrest Assessment: previously intubated and now extubated (4) HTN (hypertension) (5) ACS (acute coronary syndrome) (6) COPD exacerbation Assessment no labs today now extubated in med-surg K of 5.3 likely hemolysis - ARF Cr 1.6 - 2.0 - 1.7 now 1.4 - CKD underlying - Fluid overloud - morbid obesity - COPD / CHF / sleep apnea ? - HTN troponin leak Plan down on Diamox increase Coreg UA on Lasix Keep BP and BS in check Pulmonary support avoid Nephrotoxics slow diuresis 24 h urine protein 25 gram in 24 H urine ? DC Subjective ROS Limited/Unobtainable: No Constitutional: Reports: malaise, other - stronger Objective Objective Last 24 Hour Vital Signs Date Time Temp Pulse Resp B/P (MAP) Pulse Ox O2 Delivery O2 Flow Rate FiO2 06/08/17 12:00 97.7 77 21 159/99 99 06/08/17 08:43 92 142/91 06/08/17 08:01 Nasal Cannula 4.0 06/08/17 08:00 97.7 82 20 155/104 98 06/08/17 04:00 Nasal Cannula 4.0 06/08/17 04:00 97.5 92 18 142/91 91 Nasal Cannula 06/08/17 00:00 97.3 87 20 125/68 90 Room Air 06/08/17 00:00 Nasal Cannula 4.0 06/07/17 20:41 81 143/88 06/07/17 20:00 Nasal Cannula 4.0 06/07/17 20:00 97.7 81 19 143/88 98 Room Air 06/07/17 16:00 97.7 72 20 139/89 93 Intake and Output 06/07/17 06/08/17 19:00 07:00 Intake Total 90 ml 240 ml Output Total 750 ml Balance -660 ml 240 ml Intake Oral 90 ml 240 ml Output Urine Total 750 ml # Voids 4 # Bowel Movements 1 Height (Feet): 5 Height (Inches): 7.00 Weight (Pounds): 253 General Appearance: no apparent distress Cardiovascular: normal rate Respiratory/Chest: decreased breath sounds Abdomen: soft, other - obese Objective no other changes GIOVANNI ARMANDO Jun 08, 2017 15:10
[2017-06-08 15:44] VITALS: BP 167/97
[2017-06-08 16:36] VITALS: BP 167/97
--- NOTE | 2017-06-08 23:26 | Pulmonology Progress Note ---
Assessment/Plan Problems: (1) Respiratory distress (2) CHF (congestive heart failure) (3) HTN (hypertension) Assessment/Plan off bipap cop2 is still ghigh renal function improving p/ot evaluation again. increase lasix dc planning pt desaturated to 83 on room air. will need oxygen at home hh will provide home oxygen today Subjective ROS Limited/Unobtainable: No Constitutional: Reports: no symptoms HEENT: Repors: no symptoms Respiratory: Reports: no symptoms Allergies: Coded Allergies: No Known Allergies (Unverified , 07/23/16) Objective Last 24 Hour Vital Signs Date Time Temp Pulse Resp B/P (MAP) Pulse Ox O2 Delivery O2 Flow Rate FiO2 06/08/17 16:36 167/97 06/08/17 15:44 97.7 75 20 167/97 97 06/08/17 12:00 97.7 77 21 159/99 99 06/08/17 08:43 92 142/91 06/08/17 08:01 Nasal Cannula 4.0 06/08/17 08:00 97.7 82 20 155/104 98 06/08/17 04:00 Nasal Cannula 4.0 06/08/17 04:00 97.5 92 18 142/91 91 Nasal Cannula 06/08/17 00:00 97.3 87 20 125/68 90 Room Air 06/08/17 00:00 Nasal Cannula 4.0 Intake and Output 06/07/17 06/08/17 19:00 07:00 Intake Total 90 ml 240 ml Output Total 750 ml Balance -660 ml 240 ml Intake Oral 90 ml 240 ml Output Urine Total 750 ml # Voids 4 # Bowel Movements 1 Objective General Appearance: WD/WN HEENT: normocephalic, atraumatic Respiratory/Chest: chest wall non-tender, lungs clear Cardiovascular: normal peripheral pulses, normal rate Genitourinary: normal external genitalia Extremities: no clubbing 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
--- NOTE | 2017-06-11 13:05 | Discharge Summary ---
Discharge Summary Hospital Course Date of Admission May 26, 2017 at 14:22 Date of Discharge Jun 08, 2017 at 17:34 Admitting Diagnosis hypoxia YAZ Dietrich is a 61 year old male who was admitted on May 26, 2017 at 14:22 for Hypoxia Hospital Course dc summary #[id number] Discharge Medications Continued Medications: Carvedilol (Coreg) 6.25 Mg Tablet 6.25 MG ORAL EVERY 12 HOURS for 30 Days, TAB Furosemide* (Lasix*) 40 Mg Tablet 40 MG ORAL EVERY 12 HOURS, TAB Lansoprazole* (Prevacid*) 30 Mg Capsule.dr 30 MG ORAL DAILY, CAP Theophylline (Theodur*) 100 Mg Tab.er.12h 100 MG ORAL TWICE A DAY, #30 TAB 0 Refills Discharge Condition Upon Discharge: stable Discharge Disposition Patient was discharged to Home () Discharge Diagnoses: Jean Carlos (Jamshid),Sita YOO Jun 11, 2017 13:05
--- NOTE | 2017-06-12 12:00 | Discharge Summary 2 SIG ---
DATE OF ADMISSION: 05/26/2017 DATE OF DISCHARGE: 06/08/2017 REASON FOR ADMISSION: 61-year-old male with history of COPD, CHF, obstructive sleep apnea, morbidly obese, presented to emergency department with complaint of cough, congestion, and shortness of breath. He stated that several medications were changed by his primary provider recently and he subsequently developed increased cough. The patient had a recent sleep study, was diagnosed with sleep apnea, but did not get any oxygen or CPAP yet at home. Patient presented fairly hypoxic. He denied vomiting, diarrhea, or recent travel. Workup in the emergency room revealed hypoxemia and respiratory distress. Chest X-ray showed cardiomegaly and fluid overload. The patient received breathing treatment with bronchodilator and diuretic but despite all these measures, he remained hypoxemic. Laboratory work also showed evidence of acute renal failure with BUN of 40 and creatinine of 1.8. The patient admitted with dyspnea, respiratory distress, COPD exacerbation, hypertension, and congestive heart failure. HOSPITAL COURSE: The patient admitted to telemetry floor. The patient started on Lasix drip. Volumes and renal parameters were closely monitored. Supplemental oxygen provided as needed. Pulmonary toilet provided. Blood pressure was managed with current antihypertensive regimen. On the next day, on 05/27/2017, the patient went to respiratory arrest and required emergent oral intubation and subsequent transfer to ICU. ABG prior revealed acute respiratory acidosis with pCO2- 70 and pH -7.27. Cardiology, Infectious Disease specialist, and Nephrology consults were requested. Acute respiratory failure was likely multifactorial due to COPD and CHF exacerbation as well as pneumonia. Ventilator support and pulmonary toilet provided. The patient was followed up with daily chest x-ray and ABG. The patient was able to be extubated on 06/01/2017. The patient was started on the BiPAP after extubation with recommendation to use at nighttime and as needed. The patient was on intravenous steroids, which gradually tapered, empiric antibiotics and started on trial of the trial of theophylline. ABG consistently demonstrated hypercapnia. Trial of Diamox was started for diuresis ( when Lasix was on hold) and for metabolic alkalosis. Antitussive provided as needed. Patient subsequently was able to be weaned to oxygen via nasal cannula, however, desaturated and needed placement of the BiPAP again. The patient was on the Diamox, and Diamox was tapered down. The patient was able eventually to be weaned from the BiPAP, but desaturated on the room air. Home oxygen was arranged for this patient prior to discharge. Jail Guard closely followed the patient. CTA revealed no evidence of pulmonary emboli. Echocardiogram revealed preserved ejection fraction of 60% to 65%, right ventricular systolic pressure of 59 consistent with moderate pulmonary hypertension. No shunting by bubble study. Patient initially was on Lasix drip with close monitoring of cardiorenal parameters and volumes, which was stopped due to renal failure. Troponin with minimal elevation. Per Jail Guard, troponin elevation was likely due to renal insufficiency/ troponin leak. Blood pressure was kept under control. The patient was on beta-rj. Lasix restarted after renal parameters showed improvement. Per Cardiology, pulmonary hypertension was likely due to pulmonary cause, not cardiac. Infectious Disease closely followed the patient. Influenza screen was negative. The patient status post empiric treatment for flu and status post empiric antibiotic for possible pneumonia. After the treatment, Infectious Disease recommended to monitor the patient off antibiotics. Film Replacement Orderer closely followed the patient with close monitoring of renal parameters and electrolytes. Electrolytes were corrected as needed. Nephrotoxics were avoided. 24 hours urine revealed 25 g of the protein consistent with diagnosis of nephrotic syndrome. Renal parameters started to improve. Initial BUN -40, creatinine -1.8 trending down with creatinine- 1.4 and BUN- 27. CT of the head revealed no acute intracranial pathology, but showed old left CVA. GI prophylaxis provided. Blood sugar was managed and remained stable. The patient was working with physical and occupational therapists. The patient was stable for discharge home. FINAL DIAGNOSES: 1. Status post respiratory arrest, 2. Acute hypoxemic hypercapnic respiratory failure requiring intubation on 05/27 (likely multifactorial due to chronic obstructive pulmonary disease and congestive heart failure exacerbation as well as pneumonia). 3. Status post extubation on 06/01/2017. 4. Chronic obstructive pulmonary disease exacerbation. 5. Congestive heart failure exacerbation (status post Lasix drip). 6. Possible pneumonia, status post empiric treatment. 7. Acute kidney injury on chronic renal insufficiency, possible acute tubular necrosis. 8. Nephrotic syndrome 9. Moderate pulmonary hypertension. 10. Obstructive sleep apnea. 11. Possible obesity hypoventilation syndrome. 12. Right ventricular hypokinesis/dilation per client services associate. 13. Mild mitral regurgitation. 14. Morbid obesity. 15. Old left cerebrovascular accident. 16. Elevated troponin, likely secondary to renal insufficiency/ troponin leak. DISCHARGE MEDICATIONS: See medication reconciliation list. DISCHARGE INSTRUCTIONS: The patient was discharged home. Home oxygen arranged. Follow up with primary care provider next week. Hira Uribe M.D. Sita GoldsteinSt. Lawrence Psychiatric CenterRohit N.PRadha DR: TRINA JOB#: [id number] CC: BRET
== END 2017-06-08 17:34 | disposition home or self-care (01) | DRG 130 ==
LOC: EDBEDREQ 13:44 → EMR 13:56 → 2E 14:22 → EDBEDREQ 14:59 → ICU 05-27 13:40 → 2W 06-02 17:17 → 4W 06-04 23:16
PROC: 0BH17EZ Insertion of Endotracheal Airway into Trachea, Via Natural or Artificial Opening (ICD-10-PCS; principal; 2017-05-27)
PROC: 5A1955Z Respiratory Ventilation, Greater than 96 Consecutive Hours (ICD-10-PCS; 2017-05-27)
DX: J96.01 Acute respiratory failure with hypoxia (principal); N17.0 Acute kidney failure with tubular necrosis; I50.23 Acute on chronic systolic (congestive) heart failure; J18.9 Pneumonia, unspecified organism; I13.0 Hypertensive heart and chronic kidney disease with heart failure and stage 1 through stage 4 chronic kidney disease, or unspecified chronic kidney disease; I24.9 Acute ischemic heart disease, unspecified; E87.2 Acidosis; I27.20 Pulmonary hypertension, unspecified; E66.2 Morbid (severe) obesity with alveolar hypoventilation; J44.1 Chronic obstructive pulmonary disease with (acute) exacerbation; J96.02 Acute respiratory failure with hypercapnia; E87.5 Hyperkalemia; I34.0 Nonrheumatic mitral (valve) insufficiency; N18.9 Chronic kidney disease, unspecified; J44.0 Chronic obstructive pulmonary disease with (acute) lower respiratory infection; Z68.39 Body mass index [BMI] 39.0-39.9, adult; G47.33 Obstructive sleep apnea (adult) (pediatric); Z91.14 Patient's other noncompliance with medication regimen; E87.6 Hypokalemia
CPT/HCPCS: 29540; 36415; 36600; 70450; 71045; 71275; 80048; 80053; 80202; 81001; 81050; 82164; 82248; 82550; 82553; 82803; 82962; 82977; 83735; 83880; 84100; 84156; 84300; 84443; 84484; 84550; 85007; 85025; 85610; 86140; 87070; 87205; 89050; 92950; 93005; 93306; 93970; 94002; 94003; 94640; 94660; 94664; 99285; J7620; J8499

== ENCOUNTER 2019-08-05 18:20 | Inpatient (IN) | payer MEDICAID ==
[~2019-08-05] VITALS: Ht 185.4 cm; Wt 111.6 kg
--- NOTE | 2019-08-05 18:18 | Emergency Room Report ---
History of Present Illness General Chief Complaint: Generalized Weakness Source: Patient, EMS Present Illness HPI Disclaimer: Please note that this report is being documented using DRAGON technology. This can lead to erroneous entry secondary to incorrect interpretation by the dictating instrument. HPI: 63-year-old male presents for evaluation of generalized weakness. He arrives by EMS called over concerns of his ambulation. He has been unsteady on his feet for the past few days. He is also been dropping his keys and increasingly unsteady. There is no fall. While he was ambulating with EMS he had a near fall but he was caught by the paramedics prior to injuring himself or hitting the ground. Denies any recent change in his health otherwise and denies fever, chills, chest pain, shortness of breath, nasal congestion, vomiting, diarrhea, abdominal pain. Eating and drinking at baseline. The patient is easily distracted which EMS states the family reported to be his baseline. He is redirectable and answering questions appropriately otherwise but he has poor insight into his medical conditions. PMH: CHF, sleep apnea, COPD PSH: Reviewed Allergies: None reported Social Hx: Denies Allergies: Coded Allergies: No Known Allergies (Unverified , 07/23/16) COVID-19 Screening Contact w/high risk pt: No Recent Travel to affected area: No Experienced COVID-19 symptoms?: No Review of Systems All Other Systems: negative except mentioned in HPI Physical Exam Vital Signs Date Time Temp Pulse Resp B/P (MAP) Pulse Ox O2 Delivery O2 Flow Rate FiO2 08/05/19 18:10 98.2 107 20 159/91 (113) 93 Room Air General: Awake and alert, no acute distress HEENT: NC/AT. EOMI. Neck: Supple, trachea midline Chest Wall: No tenderness, no deformity Cardiovascular: Slightly tachycardic. No murmur appreciated Resp: Normal work of breathing. No cough, wheezing or crackles appreciated Abdomen: Abdomen is soft, nondistended. Nontender Skin: Intact. No abrasions, laceration or rash over the exposed skin MSK: Normal tone and bulk. Moving all extremities. No obvious deformity. Strength at the shoulders, elbows, wrists, hips, knees and ankles are 5/5. No ataxia. Neuro: Awake and alert. Mentating appropriately. Procedures Critical Care Time Critical Care Time Total critical care time: Approximately 31 minutes Due to a high probability of clinically significant, life threatening deterioration, the patient required the highest level of preparedness to intervene emergently and I personally spent this critical care time directly and personally managing the patient. This critical care time included obtaining a history, examining the patient, pulse oximetry, ordering and reviewing studies , ordering treatments, evaluating response to treatment and updating management plan as needed, frequent reassessment and discussion with other providers as well as arranging for ultimate disposition. This critical to care time was performed to assess and manage the high probability of life-threatening deterioration that could result in multiorgan failure. This critical care time is separate from the separately billable procedures and treating other patients. Intubation Intubation : Consent: Emergent Intubation Method: orotracheal Tube Size (cm): 7.5 Medications: Etomidate - 20mg, Rocuronium - 100mg Breath Sounds after Intubation: equal Intubation Complications: no complications Post Intubation Xray: Yes Attempts: One Patient Tolerated: Well Complications: None Medical Decision Making Diagnostic Impression: Primary Impression: CHF (congestive heart failure) Additional Impressions: COPD exacerbation CHF exacerbation Respiratory failure ER Course 63-year-old male presents for evaluation of several days worsening generalized weakness. Differential includes was not limited to dehydration, electrolyte abnormality, viral syndrome, kidney failure, hypoxia, CHF, occult infection to name a few. Objectively, the patient's physical exam is reassuring and has intact strength and sensation in the extremities. He does arrive slightly tachycardic but afebrile. Pulse ox approximately 93% on room air though he has a history of COPD EMS reports that he wears oxygen at night only. We will start a broad metabolic infectious work-up. Will also obtain cardiac enzymes, EKG a chest x-ray. Disposition depending on results. Laboratory Tests Test 08/05/19 18:40 08/05/19 19:02 White Blood Count 7.2 K/UL (4.8-10.8) Red Blood Count 5.61 M/UL (4.70-6.10) Hemoglobin 14.3 G/DL (14.2-18.0) Hematocrit 49.3 % (42.0-52.0) Mean Corpuscular Volume 88 FL (80-99) Mean Corpuscular Hemoglobin 25.5 PG (27.0-31.0) L Mean Corpuscular Hemoglobin Concent 29.0 G/DL (32.0-36.0) L Red Cell Distribution Width 15.3 % (11.6-14.8) H Platelet Count 162 K/UL (150-450) Mean Platelet Volume 9.3 FL (6.5-10.1) Neutrophils (%) (Auto) % (45.0-75.0) Lymphocytes (%) (Auto) % (20.0-45.0) Monocytes (%) (Auto) % (1.0-10.0) Eosinophils (%) (Auto) % (0.0-3.0) Basophils (%) (Auto) % (0.0-2.0) Neutrophils % (Manual) Pending Lymphocytes % (Manual) Pending Platelet Estimate Pending Platelet Morphology Pending Sodium Level 140 MMOL/L (136-145) Potassium Level 5.0 MMOL/L (3.5-5.1) Chloride Level 98 MMOL/L (98-107) Carbon Dioxide Level 40 MMOL/L (21-32) H Anion Gap 1 mmol/L (5-15) L Blood Urea Nitrogen 23 mg/dL (7-18) H Creatinine 1.2 MG/DL (0.55-1.30) Estimated Glomerular Filtration Rate > 60 mL/min (>60) Glucose Level 143 MG/DL (74-106) H Calcium Level 8.9 MG/DL (8.5-10.1) Magnesium Level 1.9 MG/DL (1.8-2.4) Total Bilirubin 0.9 MG/DL (0.2-1.0) Aspartate Amino Transferase (AST) 27 U/L (15-37) Alanine Aminotransferase (ALT) 18 U/L (12-78) Alkaline Phosphatase 83 U/L (46-116) Troponin I 0.033 ng/mL (0.000-0.056) Pro-B-Type Natriuretic Peptide 3454 pg/mL (0-125) H Total Protein 7.3 G/DL (6.4-8.2) Albumin 3.3 G/DL (3.4-5.0) L Globulin 4.0 g/dL Albumin/Globulin Ratio 0.8 (1.0-2.7) L Serum Alcohol < 3 mg/dL Arterial Blood pH 7.240 (7.350-7.450) Arterial Blood Partial Pressure CO2 104.8 mmHg (35.0-45.0) *H Arterial Blood Partial Pressure O2 82.1 mmHg (75.0-100.0) Arterial Blood HCO3 44.0 mmol/L (22.0-26.0) *H Arterial Blood Oxygen Saturation 94.8 % (95-100) L Arterial Blood Base Excess 11.5 (-2-2) *H Wilton Test Positive EKG Diagnostic Results EKG Time: 18:28 Other Impression , Left axis deviation, inferior Q waves and inverted T waves. Criteria for LVH. Rhythm Strip Diag. Results Rhythm Strip Time: 18:28 Rate: 93 Rhythm: NSR, no PVC's, no ectopy Chest X-Ray Diagnostic Results Chest X-Ray Diagnostic Results : Chest X-Ray Ordered: Yes # of Views/Limited/Complete: 1 View Indication: Shortness of Breath EP Interpretation: Yes Interpretation: other - Enlarged cardiac silhouette with bilateral vascular congestion Impression: Other - Cardiomegaly with bilateral congestion. Electronically Signed by: Electronically signed by Dr. Wu Pate Reevaluation Time: 22:30 Last Vital Signs Date Time Temp Pulse Resp B/P (MAP) Pulse Ox O2 Delivery O2 Flow Rate FiO2 20 18:10 98.2 107 20 159/91 (113) 93 Room Air Reevaluation Impression Chest x-ray shows significant cardiomegaly consistent with his prior x-rays. There are signs of vascular congestion and BNP is elevated. Will give Lasix for CHF exacerbation. Patient was found hypoxic shortly after being placed in the room and an ABG was ordered. Show significant acidosis with a pH of 7.241 and elevation in PCO2 at 104 consistent with a COPD exacerbation. Will start MDI treatments. Patient will require admission. Will also send coronavirus swabs given the bilateral pulmonary congestion and place the patient in isolation. We discussed intubation as BiPAP, nebulizer treatments may be contraindicated in coronavirus patients. For these reasons intubation was discussed with patient however he is refusing. He states he was intubated against as will at other hospitals and does not want that experience again. He states he feels better on oxygen. I strongly encouraged the patient to reconsider and explain the seriousness of his condition stating in no uncertain terms that intubation may be a life preserving procedure. I also discussed this with the patient's family. Family stated over the phone that he has been increasingly confused over the past few days. At this time he is a full code. The patient has lucid moments though is intermittently confused, has an unsteady gait, twitching in the upper extremities which is likely a consequence of his hypoxia and elevated CO2 levels. Family was able to convey to the patient that intubation was the only option. Patient agreed and he was intubated in the setting of a worsening blood gas with worsening hypoxia. Patient was intubated under direct visualization using a bougie on first attempt without complications. Saturations improved to 100%. Will attempt a lung protective strategy and now be able to give albuterol treatments through the endotracheal tube. He will be admitted to the ICU. Admitting team was notified. Disposition: ADMITTED INPATIENT Condition: Critical Wu Pate MD Aug 05, 2019 18:18
[~2019-08-05 18:20] MED LIST changes: +ASPIR 8181 MG ORAL; +FUROSEMIDE20 M1 ORAL; +LASIX40 MG ORAL; +PREVACID30 MG ORAL; +THEOPHYLLINE A100 MG ORAL
[2019-08-05 18:37] VITALS: BP 137/84
[2019-08-05 19:00] LABS: HEMATOCRIT 49.3 % (42.0-52.0); HEMOGLOBIN 14.3 G/DL (14.2-18.0); MEAN CORPUSCULAR VOLUME 88 FL (80-99); PLATELET COUNT 162 K/UL (150-450); RED BLOOD COUNT 5.61 M/UL (4.70-6.10); RED CELL DISTRIBUTION WIDTH 15.3 % (11.6-14.8); WHITE BLOOD COUNT 7.2 K/UL (4.8-10.8)
[2019-08-05 19:05] LABS: ALANINE AMINOTRANSFERASE 18 U/L (12-78); ALBUMIN 3.3 G/DL (3.4-5.0); ALBUMIN/GLOBULIN RATIO 0.8 (1.0-2.7); ALKALINE PHOSPHATASE 83 U/L (46-116); ANION GAP 1 mmol/L (5-15); ASPARTATE AMINO TRANSFERASE 27 U/L (15-37); BILIRUBIN,TOTAL 0.9 MG/DL (0.2-1.0); BLOOD UREA NITROGEN 23 mg/dL (7-18); CALCIUM 8.9 MG/DL (8.5-10.1); CARBON DIOXIDE 40 MMOL/L (21-32); CHLORIDE 98 MMOL/L (98-107); CREATININE 1.2 MG/DL (0.55-1.30); SODIUM 140 MMOL/L (136-145)
[2019-08-05 19:52] LABS: APPEARANCE,URINE CLEAR; BILIRUBIN, URINE NEGATIVE (NEGATIVE); GLUCOSE, URINE (UA) NEGATIVE (NEGATIVE); KETONES,URINE 1+ (NEGATIVE); NITRITE,URINE NEGATIVE (NEGATIVE); PH,URINE 5 (4.5-8.0); PROTEIN,URINE 4+ (NEGATIVE); UROBILINOGEN,URINE 4 MG/DL (0.0-1.0)
[2019-08-05] MEDS ORDERED: Solu-MEDROL 125mg Inj IVP ONE (21:00)
[2019-08-05 21:05] LABS: COLOR,URINE YELLOW
[2019-08-05 21:06] LABS: LEUKOCYTE ESTERASE ,URINE TRACE (NEGATIVE)
[2019-08-05] MEDS ORDERED: Rocuronium Bromide 50mg/5ml Inj IV ONE (22:15)
[2019-08-05] MEDS ORDERED: Albuterol ud Inhalation HHN ONE (22:15)
[2019-08-05] MEDS ORDERED: Ipratropium 0.02% Inh Soln 2.5ml UD HHN ONE (22:15)
[2019-08-05] MEDS ORDERED: Etomidate 40mg/20ml Inj IV ONE (22:15)
[2019-08-05] MEDS ORDERED: cefTRIAXone 1 GM in NS 55 ML IVPB ONE (23:00)
[2019-08-05] MEDS ORDERED: Azithromycin 500 MG in D5W 275 ML IVPB ONE (23:00)
[2019-08-05 23:35] VITALS: BP 176/121
[2019-08-06] VITALS (44 sets, daily range): BP systolic 133–198; BP diastolic 73–109
[2019-08-06 08:37] LABS: HEMATOCRIT 48.1 % (42.0-52.0); HEMOGLOBIN 14.9 G/DL (14.2-18.0); MEAN CORPUSCULAR VOLUME 85 FL (80-99); PLATELET COUNT 159 K/UL (150-450); RED BLOOD COUNT 5.66 M/UL (4.70-6.10); RED CELL DISTRIBUTION WIDTH 14.1 % (11.6-14.8); WHITE BLOOD COUNT 10.4 K/UL (4.8-10.8)
[2019-08-06 08:45] LABS: ALANINE AMINOTRANSFERASE 20 U/L (12-78); ALBUMIN 3.1 G/DL (3.4-5.0); ALBUMIN/GLOBULIN RATIO 0.8 (1.0-2.7); ALKALINE PHOSPHATASE 73 U/L (46-116); ASPARTATE AMINO TRANSFERASE 19 U/L (15-37); BILIRUBIN,TOTAL 0.7 MG/DL (0.2-1.0); BLOOD UREA NITROGEN 25 mg/dL (7-18); CALCIUM 9.1 MG/DL (8.5-10.1); CHLORIDE 99 MMOL/L (98-107); CREATININE 1.3 MG/DL (0.55-1.30); POTASSIUM 4.4 MMOL/L (3.5-5.1); SODIUM 142 MMOL/L (136-145)
[2019-08-06 08:50] LABS: CARBON DIOXIDE 45 MMOL/L (21-32)
--- NOTE | 2019-08-06 09:16 | Consultation ---
Consult Note Consult Note 9.15 am: patient seen in ICU now intubated on ventilator has horowitz data reviewed Discussed with Nato HANNA full note to follow 9.45 am I was asked to evaluate the patient at the request of Dr. Ortez. Patient in ICU room L Patient intubated has a Horowitz catheter no history could be obtained from the patient Discussed with Estefani Emergency room note: HPI: 63-year-old male presents for evaluation of generalized weakness. He arrives by EMS called over concerns of his ambulation. He has been unsteady on his feet for the past few days. He is also been dropping his keys and increasingly unsteady. There is no fall. While he was ambulating with EMS he had a near fall but he was caught by the paramedics prior to injuring himself or hitting the ground. Denies any recent change in his health otherwise and denies fever, chills, chest pain, shortness of breath, nasal congestion, vomiting, diarrhea, abdominal pain. Eating and drinking at baseline. The patient is easily distracted which EMS states the family reported to be his baseline. He is redirectable and answering questions appropriately otherwise but he has poor insight into his medical conditions. PMH: CHF, sleep apnea, COPD PSH: Reviewed Allergies: None reported COVID-19 Screening Contact w/high risk pt: No Recent Travel to affected area: No Experienced COVID-19 symptoms?: No Assessment/Plan Acute respiratory failure requiring intubation and mechanical ventilation , currently on FiO2 of 70% CHF (congestive heart failure), exacerbation COPD exacerbation Lymphopenia Vent management per pulmonary NG tube insertion IV Protonix Antibiotics Steroids if indicated 2D echocardiogram Monitor urine output and renal parameters Monitor immunoresponse parameters Per orders Ovi Byrnes MD Aug 06, 2019 09:16
--- NOTE | 2019-08-06 09:45 | Diagnostic Imaging Report ---
Indication: Status post intubation Technique: One view of the chest Comparison: 4 hours earlier Findings: Interim endotracheal intubation, endotracheal tube tip projecting in good position approximately 4 cm above the . There is bilateral mild interstitial congestion which appears similar to the previous study. No definite focal airspace consolidation. There is slight blunting of left costophrenic sulcus, small effusion possible. The heart is enlarged. Impression: Satisfactory endotracheal intubation Otherwise stable findings over 4 hours as described
--- NOTE | 2019-08-06 09:58 | Diagnostic Imaging Report ---
Indication: Shortness of breath Technique: One view of the chest Comparison: 06/04/2017 Findings: The heart is enlarged. There is bilateral interstitial congestion and mild airspace edema, similar in extent to the previous exam. Impression: Cardiomegaly with evidence of congestive heart failure
[2019-08-06] MEDS ORDERED: Pantoprazole Inj IV SCH (10:30)
[2019-08-06] MEDS ORDERED: Lidocaine 1% Plain 30 ml INJ PRN (10:45)
[2019-08-06] MEDS ORDERED: Heparin1,000 units/500ml Premix(Conc:2 units/ml) IV PRN (10:45)
[2019-08-06] MEDS ORDERED: cefTRIAXone 1 GM in D5W 55 ML IV SCH (11:30)
[2019-08-06] MEDS: Pantoprazole Inj IVP SCH ×2 (11:42→21:00)
[2019-08-06] MEDS: D5 1/2NS 1,000 ML IV SCH (11:43)
[2019-08-06] MEDS: Enoxaparin 40mg Inj SUBQ SCH (11:43)
[2019-08-06] MEDS ORDERED: Azithromycin 500 MG in D5W 275 ML IV SCH (12:00)
--- NOTE | 2019-08-06 13:00 | Cardiac Electrophysiology PN ---
Subjective Subjective Seen in ICU and [id number] Objective Last 24 Hour Vital Signs Date Time Temp Pulse Resp B/P (MAP) Pulse Ox O2 Delivery O2 Flow Rate FiO2 08/06/19 12:00 70 08/06/19 12:00 70 08/06/19 12:00 Mechanical Ventilator 08/06/19 11:26 69 20 70 08/06/19 09:23 74 20 70 08/06/19 08:00 Mechanical Ventilator 08/06/19 08:00 78 08/06/19 08:00 98.8 81 20 178/79 (112) 96 08/06/19 07:28 20 164/84 Mechanical Ventilator 70 08/06/19 06:46 80 22 70 08/06/19 06:15 98 25 157/85 (109) 95 08/06/19 06:00 70 08/06/19 06:00 Mechanical Ventilator 08/06/19 06:00 100.0 100 26 181/86 (117) 97 08/06/19 05:37 98.2 87 26 155/84 94 Mechanical Ventilator 25.0 70 08/06/19 04:45 89 26 70 08/06/19 04:00 98.2 87 26 155/84 94 Mechanical Ventilator 25.0 70 08/06/19 03:30 98.2 88 26 149/82 95 Mechanical Ventilator 25.0 70 08/06/19 03:00 98.2 86 26 164/98 95 Mechanical Ventilator 25.0 70 08/06/19 02:35 86 26 70 08/06/19 02:30 98.2 85 26 151/92 95 Mechanical Ventilator 25.0 70 08/06/19 02:00 98.2 88 26 161/90 100 Mechanical Ventilator 25.0 80 08/06/19 01:30 98.2 82 26 152/94 96 Mechanical Ventilator 25.0 80 08/06/19 01:11 87 18 100 08/06/19 01:00 98.2 85 26 177/102 100 Mechanical Ventilator 25.0 80 08/06/19 00:30 98.2 87 18 169/102 100 Mechanical Ventilator 15.0 80 08/06/19 00:12 98.2 92 16 168/105 100 Mechanical Ventilator 25.0 80 08/06/19 00:00 98.2 87 18 163/102 99 Mechanical Ventilator 25.0 100 08/05/19 23:35 98.2 111 18 176/121 28 Mechanical Ventilator 25.0 80 08/05/19 22:50 18 181/134 Mechanical Ventilator 25.0 08/05/19 22:30 89 18 100 08/05/19 18:37 98.2 108 20 137/84 34 Room Air 08/05/19 18:37 107 20 Room Air 08/05/19 18:10 98.2 107 20 159/91 (113) 93 Room Air Intake and Output 08/05/19 08/06/19 19:00 07:00 Output Total 1040 ml Balance -1040 ml Output Urine Total 1040 ml Laboratory Tests Test 08/05/19 18:40 08/05/19 19:02 08/05/19 19:37 08/05/19 21:48 White Blood Count 7.2 K/UL (4.8-10.8) Red Blood Count 5.61 M/UL (4.70-6.10) Hemoglobin 14.3 G/DL (14.2-18.0) Hematocrit 49.3 % (42.0-52.0) Mean Corpuscular Volume 88 FL (80-99) Mean Corpuscular Hemoglobin 25.5 PG (27.0-31.0) L Mean Corpuscular Hemoglobin Concent 29.0 G/DL (32.0-36.0) L Red Cell Distribution Width 15.3 % (11.6-14.8) H Platelet Count 162 K/UL (150-450) Mean Platelet Volume 9.3 FL (6.5-10.1) Neutrophils (%) (Auto) % (45.0-75.0) Lymphocytes (%) (Auto) % (20.0-45.0) Monocytes (%) (Auto) % (1.0-10.0) Eosinophils (%) (Auto) % (0.0-3.0) Basophils (%) (Auto) % (0.0-2.0) Differential Total Cells Counted 100 Neutrophils % (Manual) 85 % (45-75) H Lymphocytes % (Manual) 11 % (20-45) L Monocytes % (Manual) 4 % (1-10) Eosinophils % (Manual) 0 % (0-3) Basophils % (Manual) 0 % (0-2) Band Neutrophils 0 % (0-8) Platelet Estimate Adequate Platelet Morphology Normal Hypochromasia 1+ Anisocytosis 1+ Sodium Level 140 MMOL/L (136-145) Potassium Level 5.0 MMOL/L (3.5-5.1) Chloride Level 98 MMOL/L (98-107) Carbon Dioxide Level 40 MMOL/L (21-32) H Anion Gap 1 mmol/L (5-15) L Blood Urea Nitrogen 23 mg/dL (7-18) H Creatinine 1.2 MG/DL (0.55-1.30) Estimat Glomerular Filtration Rate > 60 mL/min (>60) Glucose Level 143 MG/DL (74-106) H Calcium Level 8.9 MG/DL (8.5-10.1) Magnesium Level 1.9 MG/DL (1.8-2.4) Total Bilirubin 0.9 MG/DL (0.2-1.0) Aspartate Amino Transf (AST/SGOT) 27 U/L (15-37) Alanine Aminotransferase (ALT/SGPT) 18 U/L (12-78) Alkaline Phosphatase 83 U/L (46-116) Troponin I 0.033 ng/mL (0.000-0.056) Pro-B-Type Natriuretic Peptide 3454 pg/mL (0-125) H Total Protein 7.3 G/DL (6.4-8.2) Albumin 3.3 G/DL (3.4-5.0) L Globulin 4.0 g/dL Albumin/Globulin Ratio 0.8 (1.0-2.7) L Triglycerides Level 44 MG/DL (30-150) Serum Alcohol < 3 mg/dL Arterial Blood pH 7.240 (7.350-7.450) 7.280 (7.350-7.450) Arterial Blood Partial Pressure CO2 104.8 mmHg (35.0-45.0) *H 99.7 mmHg (35.0-45.0) *H Arterial Blood Partial Pressure O2 82.1 mmHg (75.0-100.0) 66.8 mmHg (75.0-100.0) L Arterial Blood HCO3 44.0 mmol/L (22.0-26.0) *H 46.6 mmol/L (22.0-26.0) *H Arterial Blood Oxygen Saturation 94.8 % (95-100) L 92.0 % (95-100) L Arterial Blood Base Excess 11.5 (-2-2) *H 14.5 (-2-2) *H Wil[place] Test Positive Positive Urine Color Yellow Urine Appearance Clear Urine pH 5 (4.5-8.0) Urine Specific [place] 1.025 (1.005-1.035) Urine Protein 4+ (NEGATIVE) H Urine Glucose (UA) Negative (NEGATIVE) Urine Ketones 1+ (NEGATIVE) H Urine Blood Negative (NEGATIVE) Urine Nitrite Negative (NEGATIVE) Urine Bilirubin Negative (NEGATIVE) Urine Urobilinogen 4 MG/DL (0.0-1.0) H Urine Leukocyte Esterase Trace (NEGATIVE) H Urine RBC 0-2 /HPF (0 - 0) H Urine WBC 0-2 /HPF (0 - 0) Urine Squamous Epithelial Cells None /LPF (NONE/OCC) Urine Bacteria Few /HPF (NONE) Urine Opiates Screen Negative (NEGATIVE) Urine Barbiturates Screen Negative (NEGATIVE) Phencyclidine (PCP) Screen Negative (NEGATIVE) Urine Amphetamines Screen Negative (NEGATIVE) Urine Benzodiazepines Screen Negative (NEGATIVE) Urine Cocaine Screen Negative (NEGATIVE) Urine Marijuana (THC) Screen Negative (NEGATIVE) Test 08/05/19 22:58 08/06/19 00:04 08/06/19 07:35 08/06/19 07:50 Lactic Acid Level 1.00 mmol/L (0.4-2.0) Arterial Blood pH 7.340 (7.350-7.450) 7.431 (7.350-7.450) Arterial Blood Partial Pressure CO2 79.5 mmHg (35.0-45.0) *H 67.5 mmHg (35.0-45.0) *H Arterial Blood Partial Pressure O2 86.2 mmHg (75.0-100.0) 83.6 mmHg (75.0-100.0) Arterial Blood HCO3 42.8 mmol/L (22.0-26.0) *H 43.9 mmol/L (22.0-26.0) *H Arterial Blood Oxygen Saturation 96.3 % (95-100) 96.2 % (95-100) Arterial Blood Base Excess 13 (-2-2) *H 15.9 (-2-2) *H [place] Test Positive Positive White Blood Count 10.4 K/UL (4.8-10.8) Red Blood Count 5.66 M/UL (4.70-6.10) Hemoglobin 14.9 G/DL (14.2-18.0) Hematocrit 48.1 % (42.0-52.0) Mean Corpuscular Volume 85 FL (80-99) Mean Corpuscular Hemoglobin 26.3 PG (27.0-31.0) L Mean Corpuscular Hemoglobin Concent 31.0 G/DL (32.0-36.0) L Red Cell Distribution Width 14.1 % (11.6-14.8) Platelet Count 159 K/UL (150-450) Mean Platelet Volume 7.0 FL (6.5-10.1) Neutrophils (%) (Auto) % (45.0-75.0) Lymphocytes (%) (Auto) % (20.0-45.0) Monocytes (%) (Auto) % (1.0-10.0) Eosinophils (%) (Auto) % (0.0-3.0) Basophils (%) (Auto) % (0.0-2.0) Neutrophils % (Manual) Pending Lymphocytes % (Manual) Pending Platelet Estimate Pending Platelet Morphology Pending Sodium Level 142 MMOL/L (136-145) Potassium Level 4.4 MMOL/L (3.5-5.1) Chloride Level 99 MMOL/L (98-107) Carbon Dioxide Level 45 MMOL/L (21-32) *H Blood Urea Nitrogen 25 mg/dL (7-18) H Creatinine 1.3 MG/DL (0.55-1.30) Estimat Glomerular Filtration Rate > 60 mL/min (>60) Glucose Level 124 MG/DL (74-106) H Calcium Level 9.1 MG/DL (8.5-10.1) Total Bilirubin 0.7 MG/DL (0.2-1.0) Aspartate Amino Transf (AST/SGOT) 19 U/L (15-37) Alanine Aminotransferase (ALT/SGPT) 20 U/L (12-78) Alkaline Phosphatase 73 U/L (46-116) Total Protein 6.9 G/DL (6.4-8.2) Albumin 3.1 G/DL (3.4-5.0) L Globulin 3.8 g/dL Albumin/Globulin Ratio 0.8 (1.0-2.7) iLvan Houston MD Aug 06, 2019 13:00
--- NOTE | 2019-08-06 13:55 | Diagnostic Imaging Report ---
Indication: Post orogastric tube placement Technique: Supine view of the upper abdomen Comparison: none Findings: There is an orogastric tube in place, coiled in the gastric fundus or body. The bowel gas pattern is unremarkable. Impression: Satisfactory orogastric tube placement ICU charge nurse Cristina notified at the time of interpretation
--- NOTE | 2019-08-06 15:01 | Brief Operative Note ---
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
--- NOTE | 2019-08-06 15:07 | Diagnostic Imaging Report ---
Indications: Needs long-term IV access Technique: Procedure performed at bedside. Procedural timeout performed. Ultrasound confirms patent compressible right brachial vein. Total sterile technique, including sterile probe cover and sterile gel, sterile gloves, hand hygiene, hat, mask,, sterile gown, large sterile drape, and preparation with 2% chlorhexidine utilized. Local anesthesia with 1% lidocaine. Under real-time ultrasound guidance, puncture brachial vein using 21-gauge needle, passage 0.018 guidewire, exchange for 4 Afghan peel-away sheath. 4 Afghan Bard dual-lumen power PICC cut to 44 cm. It was inserted through the peel-away sheath. Peel-away sheath and guidewire removed. Catheter fixed to the skin. Both catheter ports aspirated and flushed. Patient tolerated procedure well, without immediate complication. Followup chest x-ray obtained, documents catheter tip position at the mid superior vena cava Impression: Successful bedside placement of right arm PICC under sonographic guidance, as described above.
--- NOTE | 2019-08-06 17:29 | Consultation ---
DATE OF CONSULTATION: 08/06/2019 INFECTIOUS DISEASE CONSULTATION CONSULTING PHYSICIAN: Jesús Rose M.D. PRIMARY ATTENDING: Santi Ortez M.D. REASON FOR CONSULT: COPD exacerbation. HISTORY OF PRESENT ILLNESS: This is a 63-year-old male admitted yesterday from home complaining of generalized weakness, unsteady gait, was found to have hypercapnic respiratory failure, intubated in ER, transferred to ICU. Has low-grade fever, T-max is 100. PAST MEDICAL HISTORY: Significant for CHF, hypertension, pulmonary hypertension, mitral regurgitation, sleep apnea, and COPD. Also has chronic kidney disease. ALLERGIES: No known drug allergies. MEDICATIONS: Protonix, propofol. Get a dose of ceftriaxone and azithromycin in the ER. Get a dose of methylprednisone in the ER. SOCIAL HISTORY: Single. According to previous admission note, has no history of alcohol, drug abuse, or smoking. REVIEW OF SYSTEMS: Unobtainable. PHYSICAL EXAMINATION: VITAL SIGNS: Temperature 98.8, pulse 74, blood pressure 178/79. GENERAL APPEARANCE: Well-developed. HEAD AND NECK: Orally intubated. HEART: Normal rate. LUNGS: On ventilator. ABDOMEN: Soft, nontender. EXTREMITIES: Has no edema. NEUROLOGIC: He is sedated. On restraints. LABORATORY AND DIAGNOSTIC DATA: Sodium 142, potassium 4.4, chloride 99, bicarb 45, BUN 25, creatinine 1.3, glucose 124. WBC 10.4, hemoglobin 14.9, hematocrit 48.1, platelets 159. Blood gas at the time of admission showed pH of 7.21, pCO2 of 104.8, pO2 of 82.1. Since then, the pCO2 is coming down. Chest x-ray showed cardiomegaly and congestive heart failure. IMPRESSION: COPD exacerbation, CHF exacerbation. We will try to rule out pneumonia, especially COVID-19. Has hypertension, pulmonary hypertension, chronic kidney disease, sleep apnea. RECOMMENDATION: We will continue ceftriaxone. We will also continue azithromycin. We will follow up COVID-19 tests. We will follow up chest x-ray. At the end of my exam, I thank Dr. Ortez for involving me in the care of this patient. Jesús Rose M.D. DR: VALENTIN JOB#: [id number] CC: BRET
--- NOTE | 2019-08-06 18:14 | Consultation ---
DATE OF CONSULTATION: 08/06/2019 ICU/CRITICAL CARE CONSULTATION CONSULTING PHYSICIAN: Mitchell Cassidy M.D. HISTORY OF PRESENT ILLNESS: This is a 63-year-old male who presented to the emergency room with weakness. The patient reported being unsteady. He has a history of CHF, sleep apnea, and COPD. The patient reported a change in mental status. Overnight, the patient was noted to have significant retention of CO2 with the pCO2 104 and pH of 7.24. He was also noted to have significant alkalosis, hypernatremia. His imaging studies showed cardiomegaly with evidence CHF. At my request, he was intubated by the ER physician. PAST MEDICAL HISTORY: Notable for CHF, sleep apnea, COPD. SOCIAL HISTORY: No history of alcohol or tobacco usage. SURGERIES: None noted. HOME MEDICATIONS: None reported/not known. REVIEW OF SYSTEMS: Patient is currently intubated. PHYSICAL EXAMINATION: GENERAL: Reveals an obese black male. HEENT: Unremarkable. Endotracheal tube in place. CHEST: Showed normal breath sounds bilaterally with normal heart sounds. ABDOMEN: Soft. EXTREMITIES: There is edema. VITAL SIGNS: Blood pressure is 170/70, heart rate is 81, respirations are 20 on the respirator, O2 saturation 95% on FiO2, PEEP of 8. LABORATORY TESTING: As discussed above. Most recent ABG 7.43, pCO2 67, pO2 of 83. Repeat imaging study shows endotracheal tube in place. Generous heart size, but no clear evidence of pneumonia. IMPRESSION: 1. Decompensated congestive heart failure. 2. COPD with respiratory acidosis. 3. Respiratory failure. 4. Obesity. 5. Acute on chronic respiratory acidosis. DISCUSSION: Admit to the ICU. We will start broad-spectrum antibiotics. Propofol for sedation. Keep vent on AC mode. Decrease FiO2 and PEEP as tolerated. We will diurese. Aggressive pulmonary hygiene, broad-spectrum antibiotics. We will follow. Mitchell Cassidy M.D. DR: LÓPEZ JOB#: [id number] CC:
--- NOTE | 2019-08-06 18:30 | Consultation ---
DATE OF CONSULTATION: 08/06/2019 CARDIOLOGY CONSULTATION CONSULTING PHYSICIAN: Livan Parker MD. REFERRING PHYSICIAN: Santi Ortez MD. REASON FOR CONSULTATION: Congestive heart failure and respiratory failure. HISTORY OF PRESENT ILLNESS: The patient is a 63-year-old gentleman who was brought into the emergency room for generalized weakness. The patient has history of COPD and CHF. The patient was brought in by paramedics. The patient has been unsteady on his feet, has been dropping his keys, and has been unsteady. He had a near fall, but was caught by paramedics prior to injuring himself. The patient denies any chest pain or shortness of breath. Subsequently, the patient was noted to be in respiratory failure and was intubated and was brought to intensive care unit. Cardiology consultation was obtained for further evaluation and management. REVIEW OF SYSTEMS: Cannot be obtained as the patient is intubated on the ventilator. PAST MEDICAL HISTORY: As mentioned above. FAMILY HISTORY: Noncontributory. SOCIAL HISTORY: No history of heavy drinking. PHYSICAL EXAMINATION: VITAL SIGNS: Show blood pressure of 178/79, pulse is 80, respirations 18, and temperature 98.8. HEAD AND NECK: No JVD. He is orally intubated with tube. LUNGS: Coarse rhonchi bilaterally. CARDIOVASCULAR: Shows regular S1 and S2 with no gallop or murmur. ABDOMEN: Soft. EXTREMITIES: He has 1+ pitting edema. LABORATORY DATA: Labs show white count 10.4, hemoglobin 14.9, hematocrit 48.1, and platelet count of 159,000. His labs show sodium 142, potassium 4.4, CO2 of 45, BUN of 25, creatinine 1.3, and glucose of 124. BNP 3454. ASSESSMENT AND PLAN: 1. Respiratory failure, could be due to combination of congestive heart failure as well as COPD. His BNP is more than 5000. Echocardiogram is pending. Currently, the patient is on Lasix drip until final echocardiogram is resulted. 2. Respiratory failure, currently intubated under management of Dr. Cassidy. He is already on ceftriaxone and azithromycin. 3. Rule out COVID. The test has been already sent. Result is pending. 4. COPD. Thank you very much for allowing me to participate in the care of this patient. Please do not hesitate to contact me for any questions regarding my evaluation. Livan Parker M.D. DR: Celeste JOB#: [id number] CC:
[2019-08-06] MEDS: cefTRIAXone 1 GM in D5W 55 ML IVPB SCH (20:00)
[2019-08-06] MEDS: Dyna-Hex 2% Top Sol 2oz TOPIC SCH (20:00)
[2019-08-06] MEDS: Azithromycin 500 MG in D5W 275 ML IV SCH (21:00)
[2019-08-07] VITALS (48 sets, daily range): BP systolic 126–166; BP diastolic 78–122
--- NOTE | 2019-08-07 03:30 | History and Physical Report ---
DATE OF ADMISSION: 08/05/2019 HISTORY OF PRESENT ILLNESS: The patient initially came in with pulmonary edema and the patient initially was supposed to go to [facility]; however, the patient got worse and the ER doctor told me that the patient got intubated. The patient had severe respiratory acidosis as well as hypoxia. COVID test was sent according to the ER doctor and the patient was intubated. The patient was transferred to intensive care unit. The patient came in initially for generalized weakness. The patient apparently has been unsteady and weak with fatigue. He had presyncopal episodes. Denies any fever, chills, or chest pain. Denies shortness of breath. Denies wheezing. Denies congestion or sore throat. Denies nausea or vomiting. Denies any abdominal pain. The patient deteriorated rapidly in the emergency room. Again, admitted for pneumonia and rule out sepsis. PAST MEDICAL HISTORY: CHF, sleep apnea, hypertension, GERD, and possible COPD. PAST SURGICAL HISTORY: None known. ALLERGIES: No known allergies. FAMILY HISTORY: Unable to obtain. SOCIAL HISTORY: Apparently, the patient has no history of alcohol or drug abuse. REVIEW OF SYSTEMS: The patient initially was complaining of presyncopal events. Respiratory, initially he was not complaining of respiratory events and was not complaining of any shortness of breath initially. The patient had deteriorated very quickly and was intubated. Cannot get any history at this point. PHYSICAL EXAMINATION: VITAL SIGNS: Temperature 97, pulse is 78, and blood pressure 161/93. HEENT: PERRLA. CHEST: Bibasilar rales. CARDIOVASCULAR: Regular rate and rhythm. ABDOMEN: Soft. Positive bowel sounds. EXTREMITIES: He has edema. NEUROLOGICAL: The patient is intubated. Cannot get neurological exam. LABORATORY DATA: WBC of 7.2, hemoglobin 14.3, platelet 162,000. Sodium 142, potassium 4.4, BUN of 25, creatinine 1.3, carbon dioxide of 45. The patient is acidotic with respiratory acidosis. ASSESSMENT AND PLAN: Pneumonia, CHF, rule out pulmonary edema, respiratory failure, intubated, and also rule out COPD as well. I have consulted Dr. Cassidy, Dr. Parker, Dr. Jesús Rose, and Dr. Byrnes already. Antibiotics per Dr. Jesús Rose. The patient was seen in a timely fashion by one of the doctors at the intensive care unit. Santi Ortez M.D. DR: Kameron JOB#: [id number] CC:
[2019-08-07 05:50] LABS: BASOPHILS % (AUTO) 0.2 % (0.0-2.0); EOSINOPHILS % (AUTO) 0.4 % (0.0-3.0); HEMATOCRIT 48.4 % (42.0-52.0); HEMOGLOBIN 15.1 G/DL (14.2-18.0); LYMPHOCYTES % (AUTO) 7.7 % (20.0-45.0); MEAN CORPUSCULAR VOLUME 84 FL (80-99); MONOCYTES % (AUTO) 10.1 % (1.0-10.0); NEUTROPHILS % (AUTO) 81.6 % (45.0-75.0); PLATELET COUNT 180 K/UL (150-450); RED BLOOD COUNT 5.77 M/UL (4.70-6.10); RED CELL DISTRIBUTION WIDTH 14.3 % (11.6-14.8); WHITE BLOOD COUNT 8.8 K/UL (4.8-10.8)
[2019-08-07] MEDS: D5 1/2NS 1,000 ML IV SCH (05:50)
[2019-08-07 06:23] LABS: ALANINE AMINOTRANSFERASE 18 U/L (12-78); ALBUMIN 3.2 G/DL (3.4-5.0); ALBUMIN/GLOBULIN RATIO 0.8 (1.0-2.7); ALKALINE PHOSPHATASE 74 U/L (46-116); ASPARTATE AMINO TRANSFERASE 19 U/L (15-37); BILIRUBIN,TOTAL 0.8 MG/DL (0.2-1.0); BLOOD UREA NITROGEN 26 mg/dL (7-18); CHLORIDE 93 MMOL/L (98-107); CHOLESTEROL 152 MG/DL (< 200); CREATININE 1.2 MG/DL (0.55-1.30); FERRITIN 88 NG/ML (8-388); GAMMA GLUTAMYL TRANSPEPTIDASE 24 U/L (5-85); HDL CHOLESTEROL 53 MG/DL (40-60); PHOSPHORUS 2.7 MG/DL (2.5-4.9); POTASSIUM 3.4 MMOL/L (3.5-5.1); SODIUM 142 MMOL/L (136-145); TRIGLYCERIDES 91 MG/DL (30-150)
[2019-08-07 06:32] LABS: CARBON DIOXIDE > 45 MMOL/L (21-32)
[2019-08-07] MEDS: Pantoprazole Inj IVP SCH ×2 (08:37→20:07)
[2019-08-07] MEDS: Enoxaparin 40mg Inj SUBQ SCH (08:41)
--- NOTE | 2019-08-07 09:33 | Infectious Diseases Prog Note ---
Assessment/Plan Assessment/Plan IMPRESSION: COPD exacerbation, CHF exacerbation. Rule out ofpneumonia, especially COVID-19. Hypertension, Pulmonary hypertension, Chronic kidney disease, sleep apnea. RECOMMENDATION: We will continue ceftriaxone & azithromycin. We will follow up COVID-19 tests. We will follow up chest x-ray. Subjective ROS Limited/Unobtainable: Yes Constitutional: Denies: fever Allergies: Coded Allergies: No Known Allergies (Unverified , 07/23/16) Objective Vital Signs Last 24 Hour Vital Signs Date Time Temp Pulse Resp B/P (MAP) Pulse Ox O2 Delivery O2 Flow Rate FiO2 08/07/19 08:40 80 20 50 08/07/19 08:30 82 19 142/93 (109) 95 08/07/19 08:00 20 141/91 Mechanical Ventilator 50 08/07/19 08:00 98.8 79 20 141/91 (108) 94 08/07/19 07:30 80 20 144/96 (112) 94 08/07/19 07:20 80 20 60 08/07/19 07:00 78 21 145/96 (112) 93 08/07/19 07:00 20 123/75 Mechanical Ventilator 50 08/07/19 06:33 75 20 08/07/19 06:30 80 20 139/95 (110) 93 08/07/19 06:00 78 20 153/96 (115) 94 08/07/19 06:00 20 143/80 Mechanical Ventilator 50 08/07/19 05:50 20 143/105 Mechanical Ventilator 50 08/07/19 05:30 75 19 143/105 (118) 94 08/07/19 05:09 76 20 70 08/07/19 05:00 77 20 145/99 (114) 94 08/07/19 05:00 20 123/65 Mechanical Ventilator 50 08/07/19 04:30 76 20 152/105 (121) 94 08/07/19 04:00 98.4 78 20 148/109 (122) 95 08/07/19 04:00 Mechanical Ventilator 08/07/19 04:00 50 08/07/19 04:00 71 08/07/19 04:00 20 142/69 Mechanical Ventilator 50 08/07/19 03:30 80 20 148/114 (125) 94 08/07/19 03:17 77 20 70 08/07/19 03:00 80 20 156/104 (121) 94 08/07/19 02:30 72 20 142/97 (112) 94 08/07/19 02:00 20 150/85 Mechanical Ventilator 50 08/07/19 02:00 20 143/71 Mechanical Ventilator 50 08/07/19 02:00 77 20 143/98 (113) 93 08/07/19 01:36 73 20 70 08/07/19 01:30 76 20 142/91 (108) 94 08/07/19 01:00 75 19 154/88 (110) 95 08/07/19 01:00 20 142/91 Mechanical Ventilator 50 08/07/19 00:30 77 20 141/100 (114) 95 08/07/19 00:00 75 08/07/19 00:00 99.1 82 20 145/93 (110) 93 08/07/19 00:00 Mechanical Ventilator 08/07/19 00:00 50 08/07/19 00:00 20 145/93 Mechanical Ventilator 50 08/06/19 23:39 69 20 70 08/06/19 23:30 83 21 169/109 (129) 98 08/06/19 23:00 20 150/82 Mechanical Ventilator 50 08/06/19 23:00 77 20 148/88 (108) 98 08/06/19 22:32 25 150/91 Mechanical Ventilator 40 08/06/19 22:30 75 20 149/92 (111) 97 08/06/19 22:00 20 145/79 Mechanical Ventilator 50 08/06/19 22:00 78 20 135/95 (108) 96 08/06/19 21:30 75 20 150/88 (108) 96 08/06/19 21:12 73 20 70 08/06/19 21:00 74 20 155/94 (114) 96 08/06/19 21:00 20 136/75 Mechanical Ventilator 50 08/06/19 20:30 73 20 150/83 (105) 98 08/06/19 20:00 98.4 76 20 139/92 (108) 96 08/06/19 20:00 20 150/86 Mechanical Ventilator 50 08/06/19 20:00 78 08/06/19 20:00 Mechanical Ventilator 08/06/19 20:00 60 08/06/19 19:36 78 20 70 08/06/19 19:30 78 19 162/94 (116) 98 08/06/19 19:00 77 21 169/101 (123) 98 08/06/19 18:30 85 22 182/93 (122) 98 08/06/19 18:00 20 180/102 70.0 08/06/19 18:00 85 25 191/91 (124) 99 08/06/19 17:30 78 19 161/93 (115) 100 08/06/19 17:22 67 20 70 08/06/19 17:03 72 20 148/91 (110) 96 08/06/19 17:00 21 182/93 Mechanical Ventilator 70.0 08/06/19 16:00 70 08/06/19 16:00 18 182/93 Mechanical Ventilator 70.0 08/06/19 16:00 Mechanical Ventilator 08/06/19 16:00 65 20 159/104 (122) 99 08/06/19 16:00 68 08/06/19 15:30 65 20 167/104 (125) 99 08/06/19 15:00 67 20 198/98 (131) 99 08/06/19 15:00 20 198/98 Mechanical Ventilator 70 08/06/19 14:58 20 203/106 Mechanical Ventilator 70 08/06/19 14:30 64 20 180/107 (131) 99 08/06/19 14:28 63 20 70 08/06/19 14:00 61 20 194/104 (134) 97 08/06/19 14:00 20 192/104 Mechanical Ventilator 70 08/06/19 13:30 65 20 165/85 (111) 95 08/06/19 13:08 65 20 70 08/06/19 13:00 20 144/83 Mechanical Ventilator 70 08/06/19 13:00 66 20 144/83 (103) 96 08/06/19 12:30 66 20 133/78 (96) 96 08/06/19 12:00 98.3 65 20 156/89 (111) 98 08/06/19 12:00 70 08/06/19 12:00 20 156/89 Mechanical Ventilator 70 08/06/19 12:00 70 08/06/19 12:00 Mechanical Ventilator 08/06/19 11:30 70 20 136/77 (96) 96 08/06/19 11:26 69 20 70 08/06/19 11:00 20 126/77 Mechanical Ventilator 70 08/06/19 11:00 74 20 136/77 (96) 96 08/06/19 10:30 76 20 139/73 (95) 96 08/06/19 10:00 20 136/76 Mechanical Ventilator 70 08/06/19 10:00 77 20 136/76 (96) 96 08/06/19 09:30 78 20 138/82 (100) 96 Height (Feet): 6 Height (Inches): 1.00 Weight (Pounds): 212 HEENT: other - orally intubated Respiratory/Chest: other - on ventilator Cardiovascular: normal rate, other - PICC line Abdomen: soft, non tender Extremities: other - edema Neurologic/Psychiatric: other - sedated Microbiology Date/Time Source Procedure Growth Status 08/05/19 22:58 Blood Not Otherwise Specified Blood Culture - Preliminary NO GROWTH AFTER 24 HOURS Resulted 08/05/19 22:50 Blood Not Otherwise Specified Blood Culture - Preliminary NO GROWTH AFTER 24 HOURS Resulted Laboratory Tests Test 08/07/19 04:00 08/07/19 04:30 08/07/19 08:33 White Blood Count 8.8 K/UL (4.8-10.8) Red Blood Count 5.77 M/UL (4.70-6.10) Hemoglobin 15.1 G/DL (14.2-18.0) Hematocrit 48.4 % (42.0-52.0) Mean Corpuscular Volume 84 FL (80-99) Mean Corpuscular Hemoglobin 26.3 PG (27.0-31.0) L Mean Corpuscular Hemoglobin Concent 31.3 G/DL (32.0-36.0) L Red Cell Distribution Width 14.3 % (11.6-14.8) Platelet Count 180 K/UL (150-450) Mean Platelet Volume 7.1 FL (6.5-10.1) Neutrophils (%) (Auto) 81.6 % (45.0-75.0) H Lymphocytes (%) (Auto) 7.7 % (20.0-45.0) L Monocytes (%) (Auto) 10.1 % (1.0-10.0) H Eosinophils (%) (Auto) 0.4 % (0.0-3.0) Basophils (%) (Auto) 0.2 % (0.0-2.0) D-Dimer 1.43 mg/L FEU (0.00-0.49) H Sodium Level 142 MMOL/L (136-145) Potassium Level 3.4 MMOL/L (3.5-5.1) L Chloride Level 93 MMOL/L (98-107) L Carbon Dioxide Level > 45 MMOL/L (21-32) *H Blood Urea Nitrogen 26 mg/dL (7-18) H Creatinine 1.2 MG/DL (0.55-1.30) Estimat Glomerular Filtration Rate > 60 mL/min (>60) Glucose Level 84 MG/DL (74-106) Hemoglobin A1c 6.3 % (4.3-6.0) H Uric Acid 5.1 MG/DL (2.6-7.2) Calcium Level 9.0 MG/DL (8.5-10.1) Phosphorus Level 2.7 MG/DL (2.5-4.9) Magnesium Level 1.9 MG/DL (1.8-2.4) Ferritin 88 NG/ML (8-388) Total Bilirubin 0.8 MG/DL (0.2-1.0) Gamma Glutamyl Transpeptidase 24 U/L (5-85) Aspartate Amino Transf (AST/SGOT) 19 U/L (15-37) Alanine Aminotransferase (ALT/SGPT) 18 U/L (12-78) Alkaline Phosphatase 74 U/L (46-116) Lactate Dehydrogenase 436 U/L (81-234) H Troponin I 0.024 ng/mL (0.000-0.056) C-Reactive Protein, Quantitative 3.2 mg/dL (0.00-0.90) H Pro-B-Type Natriuretic Peptide 624 pg/mL (0-125) H Total Protein 7.2 G/DL (6.4-8.2) Albumin 3.2 G/DL (3.4-5.0) L Globulin 4.0 g/dL Albumin/Globulin Ratio 0.8 (1.0-2.7) L Triglycerides Level 91 MG/DL (30-150) Cholesterol Level 152 MG/DL (< 200) LDL Cholesterol 81 mg/dL (<100) HDL Cholesterol 53 MG/DL (40-60) Cholesterol/HDL Ratio 2.9 (3.3-4.4) L Thyroid Stimulating Hormone (TSH) 0.789 uiU/mL (0.358-3.740) HIV (1&2) Antibody Rapid Negative (NEGATIVE) Urine Legionella Antigen Pending Arterial Blood pH 7.492 (7.350-7.450) Arterial Blood Partial Pressure CO2 66.1 mmHg (35.0-45.0) *H Arterial Blood Partial Pressure O2 67.0 mmHg (75.0-100.0) L Arterial Blood HCO3 49.5 mmol/L (22.0-26.0) *H Arterial Blood Oxygen Saturation 93.6 % (95-100) L Arterial Blood Base Excess 21.6 (-2-2) *H [place] Test Positive Current Medications Medications (Trade) Dose Ordered Sig/Judy Route PRN Reason Start Time Stop Time Status Last Admin Dose Admin Azithromycin 500 mg/Dextrose 275 ml @ 275 mls/hr Q24HRS IV 08/06/19 21:00 08/12/19 21:59 08/06/19 21:00 Ceftriaxone Sodium 1 gm/ Dextrose 55 ml @ 110 mls/hr Q24H IVPB 08/06/19 20:00 08/13/19 19:59 08/06/19 20:00 Chlorhexidine Gluconate (Jessenia-Hex 2%) 1 applic DAILY@2000 TOPIC 08/06/19 20:00 11/04/19 19:59 08/06/19 20:00 Dextrose (Dextrose 50%) 25 ml Q30M PRN IV Hypoglycemia 08/06/19 10:30 11/04/19 10:29 Dextrose (Dextrose 50%) 50 ml Q30M PRN IV Hypoglycemia 08/06/19 10:30 11/04/19 10:29 Enoxaparin Sodium (Lovenox) 40 mg Q24HRS@0900 SUBQ 08/06/19 11:00 11/04/19 10:59 08/07/19 08:41 Furosemide 100 mg/ Dextrose 100 ml @ 10 mls/hr Q10H IV 08/06/19 14:30 09/05/19 14:29 08/07/19 05:51 Heparin Sodium/ Sodium Chloride (Heparin 1000 units/500ml Premix) 1,000 unit ONCE PRN IV PICC LINE 08/06/19 10:45 08/07/19 23:59 Lidocaine HCl (Xylocaine 1% 30ml) 30 ml ONCE PRN INJ PICC LINE PLACEMENT 08/06/19 10:45 08/07/19 23:59 Pantoprazole (Protonix) 40 mg EVERY 12 HOURS IVP 08/06/19 10:00 09/05/19 09:59 08/07/19 08:37 Potassium Chloride 100 ml @ 50 mls/hr Q2H IVPB 08/07/19 09:00 08/07/19 10:59 08/07/19 08:40 Potassium Chloride (K-Dur) 20 meq TWICE A DAY NG 08/07/19 09:00 11/05/19 08:59 08/07/19 08:41 Propofol 100 ml @ 0 mls/hr Q24H IV 08/06/19 06:30 08/08/19 06:29 08/07/19 05:50 Jesús Rose MD Aug 07, 2019 09:33
--- NOTE | 2019-08-07 10:49 | Pulmonology Progress Note ---
Assessment/Plan Assessment/Plan IMPRESSION: 1. Decompensated congestive heart failure. 2. COPD with respiratory acidosis. 3. Respiratory failure. 4. Obesity. 5. Acute on chronic respiratory acidosis. DISCUSSION: Admit to the ICU. Continue broad-spectrum antibiotics. Propofol for sedation. Keep vent on AC mode. Decrease FiO2 and PEEP as tolerated. Continue Lasix infusion; added Diamox. I will follow. Mitchell Cassidy M.D. Subjective Interval Events: Remains intubated; hypertensive Constitutional: Reports: no symptoms HEENT: Repors: no symptoms Respiratory: Reports: no symptoms Cardiovascular: Reports: no symptoms Gastrointestinal/Abdominal: Reports: no symptoms Allergies: Coded Allergies: No Known Allergies (Unverified , 07/23/16) Objective Last 24 Hour Vital Signs Date Time Temp Pulse Resp B/P (MAP) Pulse Ox O2 Delivery O2 Flow Rate FiO2 08/07/19 09:30 86 21 154/103 (120) 94 08/07/19 09:00 20 140/94 Mechanical Ventilator 60 08/07/19 09:00 81 20 140/94 (109) 92 08/07/19 08:40 80 20 50 08/07/19 08:30 82 19 142/93 (109) 95 08/07/19 08:00 60 08/07/19 08:00 20 141/91 Mechanical Ventilator 50 08/07/19 08:00 98.8 79 20 141/91 (108) 94 08/07/19 07:30 80 20 144/96 (112) 94 08/07/19 07:20 80 20 60 08/07/19 07:00 78 21 145/96 (112) 93 08/07/19 07:00 20 123/75 Mechanical Ventilator 50 08/07/19 06:33 75 20 08/07/19 06:30 80 20 139/95 (110) 93 08/07/19 06:00 78 20 153/96 (115) 94 08/07/19 06:00 20 143/80 Mechanical Ventilator 50 08/07/19 05:50 20 143/105 Mechanical Ventilator 50 08/07/19 05:30 75 19 143/105 (118) 94 08/07/19 05:09 76 20 70 08/07/19 05:00 77 20 145/99 (114) 94 08/07/19 05:00 20 123/65 Mechanical Ventilator 50 08/07/19 04:30 76 20 152/105 (121) 94 08/07/19 04:00 98.4 78 20 148/109 (122) 95 08/07/19 04:00 Mechanical Ventilator 08/07/19 04:00 50 08/07/19 04:00 71 08/07/19 04:00 20 142/69 Mechanical Ventilator 50 08/07/19 03:30 80 20 148/114 (125) 94 08/07/19 03:17 77 20 70 08/07/19 03:00 80 20 156/104 (121) 94 08/07/19 02:30 72 20 142/97 (112) 94 08/07/19 02:00 20 150/85 Mechanical Ventilator 50 08/07/19 02:00 20 143/71 Mechanical Ventilator 50 08/07/19 02:00 77 20 143/98 (113) 93 08/07/19 01:36 73 20 70 08/07/19 01:30 76 20 142/91 (108) 94 08/07/19 01:00 75 19 154/88 (110) 95 08/07/19 01:00 20 142/91 Mechanical Ventilator 50 08/07/19 00:30 77 20 141/100 (114) 95 08/07/19 00:00 75 08/07/19 00:00 99.1 82 20 145/93 (110) 93 08/07/19 00:00 Mechanical Ventilator 08/07/19 00:00 50 08/07/19 00:00 20 145/93 Mechanical Ventilator 50 08/06/19 23:39 69 20 70 08/06/19 23:30 83 21 169/109 (129) 98 08/06/19 23:00 20 150/82 Mechanical Ventilator 50 08/06/19 23:00 77 20 148/88 (108) 98 08/06/19 22:32 25 150/91 Mechanical Ventilator 40 08/06/19 22:30 75 20 149/92 (111) 97 08/06/19 22:00 20 145/79 Mechanical Ventilator 50 08/06/19 22:00 78 20 135/95 (108) 96 08/06/19 21:30 75 20 150/88 (108) 96 08/06/19 21:12 73 20 70 08/06/19 21:00 74 20 155/94 (114) 96 08/06/19 21:00 20 136/75 Mechanical Ventilator 50 08/06/19 20:30 73 20 150/83 (105) 98 08/06/19 20:00 98.4 76 20 139/92 (108) 96 08/06/19 20:00 20 150/86 Mechanical Ventilator 50 08/06/19 20:00 78 08/06/19 20:00 Mechanical Ventilator 08/06/19 20:00 60 08/06/19 19:36 78 20 70 08/06/19 19:30 78 19 162/94 (116) 98 08/06/19 19:00 77 21 169/101 (123) 98 08/06/19 18:30 85 22 182/93 (122) 98 08/06/19 18:00 20 180/102 70.0 08/06/19 18:00 85 25 191/91 (124) 99 08/06/19 17:30 78 19 161/93 (115) 100 08/06/19 17:22 67 20 70 08/06/19 17:03 72 20 148/91 (110) 96 08/06/19 17:00 21 182/93 Mechanical Ventilator 70.0 08/06/19 16:00 70 08/06/19 16:00 18 182/93 Mechanical Ventilator 70.0 08/06/19 16:00 Mechanical Ventilator 08/06/19 16:00 65 20 159/104 (122) 99 08/06/19 16:00 68 08/06/19 15:30 65 20 167/104 (125) 99 08/06/19 15:00 67 20 198/98 (131) 99 08/06/19 15:00 20 198/98 Mechanical Ventilator 70 08/06/19 14:58 20 203/106 Mechanical Ventilator 70 08/06/19 14:30 64 20 180/107 (131) 99 08/06/19 14:28 63 20 70 08/06/19 14:00 61 20 194/104 (134) 97 08/06/19 14:00 20 192/104 Mechanical Ventilator 70 08/06/19 13:30 65 20 165/85 (111) 95 08/06/19 13:08 65 20 70 4/8/20 13:00 20 144/83 Mechanical Ventilator 70 08/06/19 13:00 66 20 144/83 (103) 96 08/06/19 12:30 66 20 133/78 (96) 96 08/06/19 12:00 98.3 65 20 156/89 (111) 98 08/06/19 12:00 70 08/06/19 12:00 20 156/89 Mechanical Ventilator 70 08/06/19 12:00 70 08/06/19 12:00 Mechanical Ventilator 08/06/19 11:30 70 20 136/77 (96) 96 08/06/19 11:26 69 20 70 08/06/19 11:00 20 126/77 Mechanical Ventilator 70 08/06/19 11:00 74 20 136/77 (96) 96 Intake and Output 08/06/19 08/07/19 19:00 07:00 Intake Total 421.156 ml 1127.510 ml Output Total 546 ml 2150 ml Balance -124.844 ml -1022.490 ml Intake IV Total 421.156 ml 1127.510 ml Output Urine Total 546 ml 2150 ml General Appearance: no acute distress HEENT: normocephalic Respiratory/Chest: chest wall non-tender Cardiovascular: normal peripheral pulses Abdomen: normal bowel sounds Microbiology Date/Time Source Procedure Growth Status 08/05/19 22:58 Blood Not Otherwise Specified Blood Culture - Preliminary NO GROWTH AFTER 24 HOURS Resulted 08/05/19 22:50 Blood Not Otherwise Specified Blood Culture - Preliminary NO GROWTH AFTER 24 HOURS Resulted Laboratory Tests 08/07/19 04:00: White Blood Count 8.8, Red Blood Count 5.77, Hemoglobin 15.1, Hematocrit 48.4, Mean Corpuscular Volume 84, Mean Corpuscular Hemoglobin 26.3L, Mean Corpuscular Hemoglobin Concent 31.3L, Red Cell Distribution Width 14.3, Platelet Count 180, Mean Platelet Volume 7.1, Neutrophils (%) (Auto) 81.6H, Lymphocytes (%) (Auto) 7.7L, Monocytes (%) (Auto) 10.1H, Eosinophils (%) (Auto) 0.4, Basophils (%) ( Auto) 0.2, D-Dimer 1.43H, Sodium Level 142, Potassium Level 3.4L, Chloride Level 93L, Carbon Dioxide Level > 45*H, Blood Urea Nitrogen 26H, Creatinine 1.2 , Estimat Glomerular Filtration Rate > 60, Glucose Level 84, Hemoglobin A1c 6.3H , Uric Acid 5.1, Calcium Level 9.0, Phosphorus Level 2.7, Magnesium Level 1.9, Ferritin 88, Total Bilirubin 0.8, Gamma Glutamyl Transpeptidase 24, Aspartate Amino Transf (AST/SGOT) 19, Alanine Aminotransferase (ALT/SGPT) 18, Alkaline Phosphatase 74, Lactate Dehydrogenase 436H, Troponin I 0.024, C-Reactive Protein , Quantitative 3.2H, Pro-B-Type Natriuretic Peptide 624H, Total Protein 7.2, Albumin 3.2L, Globulin 4.0, Albumin/Globulin Ratio 0.8L, Triglycerides Level 91 , Cholesterol Level 152, LDL Cholesterol 81, HDL Cholesterol 53, Cholesterol/ HDL Ratio 2.9L, Thyroid Stimulating Hormone (TSH) 0.789, HIV (1&2) Antibody Rapid Negative 08/07/19 04:30: Urine Legionella Antigen [Pending] 08/07/19 08:33: Arterial Blood pH 7.492H, Arterial Blood Partial Pressure CO2 66.1*H, Arterial Blood Partial Pressure O2 67.0L, Arterial Blood HCO3 49.5*H, Arterial Blood Oxygen Saturation 93.6L, Arterial Blood Base Excess 21.6*H, [place] Test Positive Current Medications Medications (Trade) Dose Ordered Sig/Judy Route PRN Reason Start Time Stop Time Status Last Admin Dose Admin Azithromycin 500 mg/Dextrose 275 ml @ 275 mls/hr Q24HRS IV 08/06/19 21:00 08/12/19 21:59 08/06/19 21:00 Ceftriaxone Sodium 1 gm/ Dextrose 55 ml @ 110 mls/hr Q24H IVPB 08/06/19 20:00 08/13/19 19:59 08/06/19 20:00 Chlorhexidine Gluconate (Jessenia-Hex 2%) 1 applic DAILY@2000 TOPIC 08/06/19 20:00 11/04/19 19:59 08/06/19 20:00 Dextrose (Dextrose 50%) 25 ml Q30M PRN IV Hypoglycemia 08/06/19 10:30 11/04/19 10:29 Dextrose (Dextrose 50%) 50 ml Q30M PRN IV Hypoglycemia 08/06/19 10:30 11/04/19 10:29 Enoxaparin Sodium (Lovenox) 40 mg Q24HRS@0900 SUBQ 08/06/19 11:00 11/04/19 10:59 08/07/19 08:41 Furosemide 100 mg/ Dextrose 100 ml @ 10 mls/hr Q10H IV 08/06/19 14:30 09/05/19 14:29 08/07/19 05:51 Heparin Sodium/ Sodium Chloride (Heparin 1000 units/500ml Premix) 1,000 unit ONCE PRN IV PICC LINE 08/06/19 10:45 08/07/19 23:59 Lidocaine HCl (Xylocaine 1% 30ml) 30 ml ONCE PRN INJ PICC LINE PLACEMENT 08/06/19 10:45 08/07/19 23:59 Pantoprazole (Protonix) 40 mg EVERY 12 HOURS IVP 08/06/19 10:00 09/05/19 09:59 08/07/19 08:37 Potassium Chloride 100 ml @ 50 mls/hr Q2H IVPB 08/07/19 09:00 08/07/19 10:59 08/07/19 08:40 Potassium Chloride (K-Dur) 20 meq TWICE A DAY NG 08/07/19 09:00 11/05/19 08:59 08/07/19 08:41 Propofol 100 ml @ 0 mls/hr Q24H IV 08/06/19 06:30 08/08/19 06:29 08/07/19 05:50 Mitchell Cassidy MD Aug 07, 2019 10:49
--- NOTE | 2019-08-07 12:44 | Cardiac Electrophysiology PN ---
Assessment/Plan Assessment/Plan 1. Respiratory failure, could be due to combination of congestive heart failure as well as COPD. His BNP is more than 5000. Echocardiogram is pending. Currently, the patient is on Lasix drip 10mg/hr and Diamox 25 iv q 6 hr Ruled out for LA 2. Respiratory failure, currently intubated under management of Dr. Cassidy. He is already on ceftriaxone and azithromycin. 3. Rule out COVID. The test has been already sent. Result is pending. 4. COPD. Subjective Subjective Seen in ICU and DW RN. Still R/O Covid. ECHO still pending. On Lasix drip 10 mg/ hr, Diamox and Propofol. On 60% Fio2 on the Vent Objective Last 24 Hour Vital Signs Date Time Temp Pulse Resp B/P (MAP) Pulse Ox O2 Delivery O2 Flow Rate FiO2 08/07/19 12:00 60 08/07/19 12:00 99.0 85 21 166/101 (122) 94 08/07/19 12:00 Mechanical Ventilator Mechanical Ventilator 08/07/19 12:00 80 08/07/19 11:30 82 20 149/95 (113) 94 08/07/19 11:00 81 20 140/95 (110) 94 08/07/19 11:00 20 149/95 Mechanical Ventilator 60 08/07/19 10:55 81 20 60 08/07/19 10:30 84 20 144/94 (111) 94 08/07/19 10:00 20 144/94 Mechanical Ventilator 60 08/07/19 10:00 80 20 151/95 (113) 94 08/07/19 09:30 86 21 154/103 (120) 94 08/07/19 09:00 20 140/94 Mechanical Ventilator 60 08/07/19 09:00 81 20 140/94 (109) 92 08/07/19 08:40 80 20 50 08/07/19 08:30 82 19 142/93 (109) 95 08/07/19 08:00 60 08/07/19 08:00 Mechanical Ventilator Mechanical Ventilator 08/07/19 08:00 20 141/91 Mechanical Ventilator 50 08/07/19 08:00 75 08/07/19 08:00 98.8 79 20 141/91 (108) 94 08/07/19 07:30 80 20 144/96 (112) 94 08/07/19 07:20 80 20 60 08/07/19 07:00 78 21 145/96 (112) 93 08/07/19 07:00 20 123/75 Mechanical Ventilator 50 08/07/19 06:33 75 20 08/07/19 06:30 80 20 139/95 (110) 93 08/07/19 06:00 78 20 153/96 (115) 94 08/07/19 06:00 20 143/80 Mechanical Ventilator 50 08/07/19 05:50 20 143/105 Mechanical Ventilator 50 08/07/19 05:30 75 19 143/105 (118) 94 08/07/19 05:09 76 20 70 08/07/19 05:00 77 20 145/99 (114) 94 08/07/19 05:00 20 123/65 Mechanical Ventilator 50 08/07/19 04:30 76 20 152/105 (121) 94 08/07/19 04:00 98.4 78 20 148/109 (122) 95 08/07/19 04:00 Mechanical Ventilator 08/07/19 04:00 50 08/07/19 04:00 71 08/07/19 04:00 20 142/69 Mechanical Ventilator 50 08/07/19 03:30 80 20 148/114 (125) 94 08/07/19 03:17 77 20 70 08/07/19 03:00 80 20 156/104 (121) 94 08/07/19 02:30 72 20 142/97 (112) 94 08/07/19 02:00 20 150/85 Mechanical Ventilator 50 08/07/19 02:00 20 143/71 Mechanical Ventilator 50 08/07/19 02:00 77 20 143/98 (113) 93 08/07/19 01:36 73 20 70 08/07/19 01:30 76 20 142/91 (108) 94 08/07/19 01:00 75 19 154/88 (110) 95 08/07/19 01:00 20 142/91 Mechanical Ventilator 50 08/07/19 00:30 77 20 141/100 (114) 95 08/07/19 00:00 75 08/07/19 00:00 99.1 82 20 145/93 (110) 93 08/07/19 00:00 Mechanical Ventilator 08/07/19 00:00 50 08/07/19 00:00 20 145/93 Mechanical Ventilator 50 08/06/19 23:39 69 20 70 08/06/19 23:30 83 21 169/109 (129) 98 08/06/19 23:00 20 150/82 Mechanical Ventilator 50 08/06/19 23:00 77 20 148/88 (108) 98 08/06/19 22:32 25 150/91 Mechanical Ventilator 40 08/06/19 22:30 75 20 149/92 (111) 97 08/06/19 22:00 20 145/79 Mechanical Ventilator 50 08/06/19 22:00 78 20 135/95 (108) 96 08/06/19 21:30 75 20 150/88 (108) 96 08/06/19 21:12 73 20 70 08/06/19 21:00 74 20 155/94 (114) 96 08/06/19 21:00 20 136/75 Mechanical Ventilator 50 08/06/19 20:30 73 20 150/83 (105) 98 08/06/19 20:00 98.4 76 20 139/92 (108) 96 08/06/19 20:00 20 150/86 Mechanical Ventilator 50 08/06/19 20:00 78 08/06/19 20:00 Mechanical Ventilator 08/06/19 20:00 60 08/06/19 19:36 78 20 70 08/06/19 19:30 78 19 162/94 (116) 98 08/06/19 19:00 77 21 169/101 (123) 98 08/06/19 18:30 85 22 182/93 (122) 98 08/06/19 18:00 20 180/102 70.0 08/06/19 18:00 85 25 191/91 (124) 99 08/06/19 17:30 78 19 161/93 (115) 100 08/06/19 17:22 67 20 70 08/06/19 17:03 72 20 148/91 (110) 96 08/06/19 17:00 21 182/93 Mechanical Ventilator 70.0 08/06/19 16:00 70 08/06/19 16:00 18 182/93 Mechanical Ventilator 70.0 08/06/19 16:00 Mechanical Ventilator 08/06/19 16:00 65 20 159/104 (122) 99 08/06/19 16:00 68 08/06/19 15:30 65 20 167/104 (125) 99 08/06/19 15:00 67 20 198/98 (131) 99 08/06/19 15:00 20 198/98 Mechanical Ventilator 70 08/06/19 14:58 20 203/106 Mechanical Ventilator 70 08/06/19 14:30 64 20 180/107 (131) 99 08/06/19 14:28 63 20 70 08/06/19 14:00 61 20 194/104 (134) 97 08/06/19 14:00 20 192/104 Mechanical Ventilator 70 08/06/19 13:30 65 20 165/85 (111) 95 08/06/19 13:08 65 20 70 08/06/19 13:00 20 144/83 Mechanical Ventilator 70 08/06/19 13:00 66 20 144/83 (103) 96 Intake and Output 08/06/19 08/07/19 19:00 07:00 Intake Total 421.156 ml 1127.510 ml Output Total 546 ml 2150 ml Balance -124.844 ml -1022.490 ml IV Total 421.156 ml 1127.510 ml Output Urine Total 546 ml 2150 ml Laboratory Tests Test 08/07/19 04:00 08/07/19 04:30 08/07/19 08:33 White Blood Count 8.8 K/UL (4.8-10.8) Red Blood Count 5.77 M/UL (4.70-6.10) Hemoglobin 15.1 G/DL (14.2-18.0) Hematocrit 48.4 % (42.0-52.0) Mean Corpuscular Volume 84 FL (80-99) Mean Corpuscular Hemoglobin 26.3 PG (27.0-31.0) L Mean Corpuscular Hemoglobin Concent 31.3 G/DL (32.0-36.0) L Red Cell Distribution Width 14.3 % (11.6-14.8) Platelet Count 180 K/UL (150-450) Mean Platelet Volume 7.1 FL (6.5-10.1) Neutrophils (%) (Auto) 81.6 % (45.0-75.0) H Lymphocytes (%) (Auto) 7.7 % (20.0-45.0) L Monocytes (%) (Auto) 10.1 % (1.0-10.0) H Eosinophils (%) (Auto) 0.4 % (0.0-3.0) Basophils (%) (Auto) 0.2 % (0.0-2.0) D-Dimer 1.43 mg/L FEU (0.00-0.49) H Sodium Level 142 MMOL/L (136-145) Potassium Level 3.4 MMOL/L (3.5-5.1) L Chloride Level 93 MMOL/L (98-107) L Carbon Dioxide Level > 45 MMOL/L (21-32) *H Blood Urea Nitrogen 26 mg/dL (7-18) H Creatinine 1.2 MG/DL (0.55-1.30) Estimat Glomerular Filtration Rate > 60 mL/min (>60) Glucose Level 84 MG/DL (74-106) Hemoglobin A1c 6.3 % (4.3-6.0) H Uric Acid 5.1 MG/DL (2.6-7.2) Calcium Level 9.0 MG/DL (8.5-10.1) Phosphorus Level 2.7 MG/DL (2.5-4.9) Magnesium Level 1.9 MG/DL (1.8-2.4) Ferritin 88 NG/ML (8-388) Total Bilirubin 0.8 MG/DL (0.2-1.0) Gamma Glutamyl Transpeptidase 24 U/L (5-85) Aspartate Amino Transf (AST/SGOT) 19 U/L (15-37) Alanine Aminotransferase (ALT/SGPT) 18 U/L (12-78) Alkaline Phosphatase 74 U/L (46-116) Lactate Dehydrogenase 436 U/L (81-234) H Troponin I 0.024 ng/mL (0.000-0.056) C-Reactive Protein, Quantitative 3.2 mg/dL (0.00-0.90) H Pro-B-Type Natriuretic Peptide 624 pg/mL (0-125) H Total Protein 7.2 G/DL (6.4-8.2) Albumin 3.2 G/DL (3.4-5.0) L Globulin 4.0 g/dL Albumin/Globulin Ratio 0.8 (1.0-2.7) L Triglycerides Level 91 MG/DL (30-150) Cholesterol Level 152 MG/DL (< 200) LDL Cholesterol 81 mg/dL (<100) HDL Cholesterol 53 MG/DL (40-60) Cholesterol/HDL Ratio 2.9 (3.3-4.4) L Thyroid Stimulating Hormone (TSH) 0.789 uiU/mL (0.358-3.740) HIV (1&2) Antibody Rapid Negative (NEGATIVE) Urine Legionella Antigen Pending Arterial Blood pH 7.492 (7.350-7.450) Arterial Blood Partial Pressure CO2 66.1 mmHg (35.0-45.0) *H Arterial Blood Partial Pressure O2 67.0 mmHg (75.0-100.0) L Arterial Blood HCO3 49.5 mmol/L (22.0-26.0) *H Arterial Blood Oxygen Saturation 93.6 % (95-100) L Arterial Blood Base Excess 21.6 (-2-2) *H [place] Test Positive Microbiology Date/Time Source Procedure Growth Status 08/05/19 22:58 Blood Not Otherwise Specified Blood Culture - Preliminary NO GROWTH AFTER 24 HOURS Resulted 08/05/19 22:50 Blood Not Otherwise Specified Blood Culture - Preliminary NO GROWTH AFTER 24 HOURS Resulted Objective HEAD AND NECK: No JVD. Orally intubated LUNGS: Coarse rhonchi bilaterally. CARDIOVASCULAR: Shows regular S1 and S2 with no gallop or murmur. ABDOMEN: Soft. EXTREMITIES: He has 1+ pitting edema. Livan Parker MD Aug 07, 2019 12:44
--- NOTE | 2019-08-07 12:54 | Nephrology Progress Note ---
Assessment/Plan Problem List: (1) Hypokalemia (2) Acute respiratory failure (3) CHF (congestive heart failure) (4) COPD exacerbation Assessment Acute respiratory failure requiring intubation and mechanical ventilation , currently on FiO2 of 70% CHF (congestive heart failure), exacerbation COPD exacerbation Lymphopenia Plan Vent management per pulmonary NG tube insertion On Lasix drip Potassium supplement as needed Trial of Diamox IV Protonix Antibiotics Steroids if indicated 2D echocardiogram pending Monitor urine output and renal parameters Monitor immunoresponse parameters Per orders Subjective ROS Limited/Unobtainable: Yes Objective Objective Last 24 Hour Vital Signs Date Time Temp Pulse Resp B/P (MAP) Pulse Ox O2 Delivery O2 Flow Rate FiO2 08/07/19 12:00 60 08/07/19 12:00 99.0 85 21 166/101 (122) 94 08/07/19 12:00 Mechanical Ventilator Mechanical Ventilator 08/07/19 12:00 80 08/07/19 11:30 82 20 149/95 (113) 94 08/07/19 11:00 81 20 140/95 (110) 94 08/07/19 11:00 20 149/95 Mechanical Ventilator 60 08/07/19 10:55 81 20 60 08/07/19 10:30 84 20 144/94 (111) 94 08/07/19 10:00 20 144/94 Mechanical Ventilator 60 08/07/19 10:00 80 20 151/95 (113) 94 08/07/19 09:30 86 21 154/103 (120) 94 08/07/19 09:00 20 140/94 Mechanical Ventilator 60 08/07/19 09:00 81 20 140/94 (109) 92 08/07/19 08:40 80 20 50 08/07/19 08:30 82 19 142/93 (109) 95 08/07/19 08:00 60 08/07/19 08:00 Mechanical Ventilator Mechanical Ventilator 08/07/19 08:00 20 141/91 Mechanical Ventilator 50 08/07/19 08:00 75 08/07/19 08:00 98.8 79 20 141/91 (108) 94 08/07/19 07:30 80 20 144/96 (112) 94 08/07/19 07:20 80 20 60 08/07/19 07:00 78 21 145/96 (112) 93 08/07/19 07:00 20 123/75 Mechanical Ventilator 50 08/07/19 06:33 75 20 08/07/19 06:30 80 20 139/95 (110) 93 08/07/19 06:00 78 20 153/96 (115) 94 08/07/19 06:00 20 143/80 Mechanical Ventilator 50 08/07/19 05:50 20 143/105 Mechanical Ventilator 50 08/07/19 05:30 75 19 143/105 (118) 94 08/07/19 05:09 76 20 70 08/07/19 05:00 77 20 145/99 (114) 94 08/07/19 05:00 20 123/65 Mechanical Ventilator 50 08/07/19 04:30 76 20 152/105 (121) 94 08/07/19 04:00 98.4 78 20 148/109 (122) 95 08/07/19 04:00 Mechanical Ventilator 08/07/19 04:00 50 08/07/19 04:00 71 08/07/19 04:00 20 142/69 Mechanical Ventilator 50 08/07/19 03:30 80 20 148/114 (125) 94 08/07/19 03:17 77 20 70 08/07/19 03:00 80 20 156/104 (121) 94 08/07/19 02:30 72 20 142/97 (112) 94 08/07/19 02:00 20 150/85 Mechanical Ventilator 50 08/07/19 02:00 20 143/71 Mechanical Ventilator 50 08/07/19 02:00 77 20 143/98 (113) 93 08/07/19 01:36 73 20 70 08/07/19 01:30 76 20 142/91 (108) 94 08/07/19 01:00 75 19 154/88 (110) 95 08/07/19 01:00 20 142/91 Mechanical Ventilator 50 08/07/19 00:30 77 20 141/100 (114) 95 08/07/19 00:00 75 08/07/19 00:00 99.1 82 20 145/93 (110) 93 08/07/19 00:00 Mechanical Ventilator 08/07/19 00:00 50 08/07/19 00:00 20 145/93 Mechanical Ventilator 50 08/06/19 23:39 69 20 70 08/06/19 23:30 83 21 169/109 (129) 98 4/8/20 23:00 20 150/82 Mechanical Ventilator 50 08/06/19 23:00 77 20 148/88 (108) 98 08/06/19 22:32 25 150/91 Mechanical Ventilator 40 08/06/19 22:30 75 20 149/92 (111) 97 08/06/19 22:00 20 145/79 Mechanical Ventilator 50 08/06/19 22:00 78 20 135/95 (108) 96 08/06/19 21:30 75 20 150/88 (108) 96 08/06/19 21:12 73 20 70 08/06/19 21:00 74 20 155/94 (114) 96 08/06/19 21:00 20 136/75 Mechanical Ventilator 50 08/06/19 20:30 73 20 150/83 (105) 98 08/06/19 20:00 98.4 76 20 139/92 (108) 96 08/06/19 20:00 20 150/86 Mechanical Ventilator 50 08/06/19 20:00 78 08/06/19 20:00 Mechanical Ventilator 08/06/19 20:00 60 08/06/19 19:36 78 20 70 08/06/19 19:30 78 19 162/94 (116) 98 08/06/19 19:00 77 21 169/101 (123) 98 08/06/19 18:30 85 22 182/93 (122) 98 08/06/19 18:00 20 180/102 70.0 08/06/19 18:00 85 25 191/91 (124) 99 08/06/19 17:30 78 19 161/93 (115) 100 08/06/19 17:22 67 20 70 08/06/19 17:03 72 20 148/91 (110) 96 08/06/19 17:00 21 182/93 Mechanical Ventilator 70.0 08/06/19 16:00 70 08/06/19 16:00 18 182/93 Mechanical Ventilator 70.0 08/06/19 16:00 Mechanical Ventilator 08/06/19 16:00 65 20 159/104 (122) 99 08/06/19 16:00 68 08/06/19 15:30 65 20 167/104 (125) 99 08/06/19 15:00 67 20 198/98 (131) 99 08/06/19 15:00 20 198/98 Mechanical Ventilator 70 08/06/19 14:58 20 203/106 Mechanical Ventilator 70 08/06/19 14:30 64 20 180/107 (131) 99 08/06/19 14:28 63 20 70 08/06/19 14:00 61 20 194/104 (134) 97 08/06/19 14:00 20 192/104 Mechanical Ventilator 70 08/06/19 13:30 65 20 165/85 (111) 95 08/06/19 13:08 65 20 70 08/06/19 13:00 20 144/83 Mechanical Ventilator 70 08/06/19 13:00 66 20 144/83 (103) 96 Intake and Output 08/06/19 08/07/19 19:00 07:00 Intake Total 421.156 ml 1127.510 ml Output Total 546 ml 2150 ml Balance -124.844 ml -1022.490 ml IV Total 421.156 ml 1127.510 ml Output Urine Total 546 ml 2150 ml Current Medications Medications (Trade) Dose Ordered Sig/Judy Route PRN Reason Start Time Stop Time Status Last Admin Dose Admin Acetazolamide (Diamox 500mg Inj) 250 mg EVERY 6 HOURS IVP 08/07/19 12:00 08/08/19 06:01 Azithromycin 500 mg/Dextrose 275 ml @ 275 mls/hr Q24HRS IV 08/06/19 21:00 08/12/19 21:59 08/06/19 21:00 Ceftriaxone Sodium 1 gm/ Dextrose 55 ml @ 110 mls/hr Q24H IVPB 08/06/19 20:00 08/13/19 19:59 08/06/19 20:00 Chlorhexidine Gluconate (Jessenia-Hex 2%) 1 applic DAILY@2000 TOPIC 08/06/19 20:00 11/04/19 19:59 08/06/19 20:00 Dextrose (Dextrose 50%) 25 ml Q30M PRN IV Hypoglycemia 08/06/19 10:30 11/04/19 10:29 Dextrose (Dextrose 50%) 50 ml Q30M PRN IV Hypoglycemia 08/06/19 10:30 11/04/19 10:29 Enoxaparin Sodium (Lovenox) 40 mg Q24HRS@0900 SUBQ 08/06/19 11:00 11/04/19 10:59 08/07/19 08:41 Furosemide 100 mg/ Dextrose 100 ml @ 10 mls/hr Q10H IV 08/06/19 14:30 09/05/19 14:29 08/07/19 05:51 Heparin Sodium/ Sodium Chloride (Heparin 1000 units/500ml Premix) 1,000 unit ONCE PRN IV PICC LINE 08/06/19 10:45 08/07/19 23:59 Lidocaine HCl (Xylocaine 1% 30ml) 30 ml ONCE PRN INJ PICC LINE PLACEMENT 08/06/19 10:45 08/07/19 23:59 Pantoprazole (Protonix) 40 mg EVERY 12 HOURS IVP 08/06/19 10:00 09/05/19 09:59 08/07/19 08:37 Potassium Chloride (K-Dur) 20 meq TWICE A DAY NG 08/07/19 09:00 11/05/19 08:59 08/07/19 08:41 Propofol 100 ml @ 0 mls/hr Q24H IV 08/06/19 06:30 08/08/19 06:29 08/07/19 05:50 Laboratory Tests 08/07/19 04:00: White Blood Count 8.8, Red Blood Count 5.77, Hemoglobin 15.1, Hematocrit 48.4, Mean Corpuscular Volume 84, Mean Corpuscular Hemoglobin 26.3L, Mean Corpuscular Hemoglobin Concent 31.3L, Red Cell Distribution Width 14.3, Platelet Count 180, Mean Platelet Volume 7.1, Neutrophils (%) (Auto) 81.6H, Lymphocytes (%) (Auto) 7.7L, Monocytes (%) (Auto) 10.1H, Eosinophils (%) (Auto) 0.4, Basophils (%) ( Auto) 0.2, D-Dimer 1.43H, Sodium Level 142, Potassium Level 3.4L, Chloride Level 93L, Carbon Dioxide Level > 45*H, Blood Urea Nitrogen 26H, Creatinine 1.2 , Estimat Glomerular Filtration Rate > 60, Glucose Level 84, Hemoglobin A1c 6.3H , Uric Acid 5.1, Calcium Level 9.0, Phosphorus Level 2.7, Magnesium Level 1.9, Ferritin 88, Total Bilirubin 0.8, Gamma Glutamyl Transpeptidase 24, Aspartate Amino Transf (AST/SGOT) 19, Alanine Aminotransferase (ALT/SGPT) 18, Alkaline Phosphatase 74, Lactate Dehydrogenase 436H, Troponin I 0.024, C-Reactive Protein , Quantitative 3.2H, Pro-B-Type Natriuretic Peptide 624H, Total Protein 7.2, Albumin 3.2L, Globulin 4.0, Albumin/Globulin Ratio 0.8L, Triglycerides Level 91 , Cholesterol Level 152, LDL Cholesterol 81, HDL Cholesterol 53, Cholesterol/ HDL Ratio 2.9L, Thyroid Stimulating Hormone (TSH) 0.789, HIV (1&2) Antibody Rapid Negative 08/07/19 04:30: Urine Legionella Antigen [Pending] 08/07/19 08:33: Arterial Blood pH 7.492H, Arterial Blood Partial Pressure CO2 66.1*H, Arterial Blood Partial Pressure O2 67.0L, Arterial Blood HCO3 49.5*H, Arterial Blood Oxygen Saturation 93.6L, Arterial Blood Base Excess 21.6*H, [place] Test Positive Height (Feet): 6 Height (Inches): 1.00 Weight (Pounds): 212 General Appearance: no apparent distress EENT: other - Remains intubated on ventilator Cardiovascular: normal rate - Rate 82 Respiratory/Chest: decreased breath sounds Ovi Byrnes MD Aug 07, 2019 12:54
[2019-08-07] MEDS: acetaZOLAMIDE 500mg Inj IVP SCH ×2 (12:59→17:22)
[2019-08-07] MEDS ORDERED: cloNIDine 0.2mg Tab GT PRN (13:00)
[2019-08-07] MEDS: cefTRIAXone 1 GM in D5W 55 ML IVPB SCH (18:58)
[2019-08-07] MEDS: Dyna-Hex 2% Top Sol 2oz TOPIC SCH (20:07)
[2019-08-07] MEDS: Azithromycin 500 MG in D5W 275 ML IV SCH (21:19)
--- NOTE | 2019-08-07 21:53 | General Progress Note ---
Assessment/Plan Problem List: (1) Respiratory failure ICD Codes: J96.90 - Respiratory failure, unspecified, unspecified whether with hypoxia or hypercapnia SNOMED: 244082467 (2) CHF exacerbation ICD Codes: I50.9 - Heart failure, unspecified SNOMED: 566328336, 96240941027858 (3) COPD exacerbation ICD Codes: J44.1 - Chronic obstructive pulmonary disease with (acute) exacerbation SNOMED: 964252992 (4) Acute respiratory failure ICD Codes: J96.00 - Acute respiratory failure, unspecified whether with hypoxia or hypercapnia SNOMED: 65251298 (5) ATN (acute tubular necrosis) ICD Codes: N17.0 - Acute kidney failure with tubular necrosis SNOMED: 91964866 (6) Nephrotic syndrome ICD Codes: N04.9 - Nephrotic syndrome with unspecified morphologic changes SNOMED: 72634631 Status: unchanged Assessment/Plan: resp failure intubated pna chf copd poor prognosis afebrile abx per id not improving Subjective ROS Limited/Unobtainable: Yes Allergies: Coded Allergies: No Known Allergies (Unverified , 07/23/16) Objective Last 24 Hour Vital Signs Date Time Temp Pulse Resp B/P (MAP) Pulse Ox O2 Delivery O2 Flow Rate FiO2 08/07/19 21:16 92 23 60 08/07/19 19:51 88 23 60 08/07/19 19:30 84 23 159/105 (123) 95 08/07/19 19:00 84 20 139/96 (110) 93 08/07/19 19:00 20 130/91 Mechanical Ventilator 60 08/07/19 18:30 86 21 130/91 (104) 93 08/07/19 18:00 85 23 126/90 (102) 94 08/07/19 18:00 23 130/91 Mechanical Ventilator 60 08/07/19 17:30 82 25 148/84 (105) 96 08/07/19 17:07 87 22 60 08/07/19 17:00 22 152/93 Mechanical Ventilator 60 08/07/19 17:00 86 22 152/93 (112) 95 08/07/19 16:30 86 21 148/94 (112) 95 08/07/19 16:00 Mechanical Ventilator Mechanical Ventilator 08/07/19 16:00 98.8 84 21 144/94 (111) 94 08/07/19 16:00 21 144/94 Mechanical Ventilator 60 08/07/19 16:00 89 08/07/19 16:00 60 08/07/19 15:30 88 21 151/99 (116) 94 08/07/19 15:06 89 21 60 08/07/19 15:00 91 20 157/122 (134) 94 08/07/19 15:00 21 157/122 Mechanical Ventilator 60 08/07/19 14:30 87 20 153/91 (111) 93 08/07/19 14:00 20 153/91 Mechanical Ventilator 60 08/07/19 14:00 89 21 165/97 (119) 95 08/07/19 13:30 89 21 165/102 (123) 94 08/07/19 13:17 83 21 60 08/07/19 13:00 86 20 156/105 (122) 92 08/07/19 13:00 20 156/105 Mechanical Ventilator 60 08/07/19 12:30 88 21 157/100 (119) 91 08/07/19 12:00 60 08/07/19 12:00 21 166/101 Mechanical Ventilator 60.0 08/07/19 12:00 98.3 85 21 166/101 (122) 94 08/07/19 12:00 Mechanical Ventilator Mechanical Ventilator 08/07/19 12:00 80 08/07/19 11:30 82 20 149/95 (113) 94 08/07/19 11:00 81 20 140/95 (110) 94 08/07/19 11:00 20 149/95 Mechanical Ventilator 60 08/07/19 10:55 81 20 60 08/07/19 10:30 84 20 144/94 (111) 94 08/07/19 10:00 20 144/94 Mechanical Ventilator 60 08/07/19 10:00 80 20 151/95 (113) 94 08/07/19 09:30 86 21 154/103 (120) 94 08/07/19 09:00 20 140/94 Mechanical Ventilator 60 08/07/19 09:00 81 20 140/94 (109) 92 08/07/19 08:40 80 20 50 08/07/19 08:30 82 19 142/93 (109) 95 08/07/19 08:00 60 08/07/19 08:00 Mechanical Ventilator Mechanical Ventilator 08/07/19 08:00 20 141/91 Mechanical Ventilator 50 08/07/19 08:00 75 08/07/19 08:00 98.8 79 20 141/91 (108) 94 08/07/19 07:30 80 20 144/96 (112) 94 08/07/19 07:20 80 20 60 08/07/19 07:00 78 21 145/96 (112) 93 08/07/19 07:00 20 123/75 Mechanical Ventilator 50 08/07/19 06:33 75 20 08/07/19 06:30 80 20 139/95 (110) 93 08/07/19 06:00 78 20 153/96 (115) 94 08/07/19 06:00 20 143/80 Mechanical Ventilator 50 08/07/19 05:50 20 143/105 Mechanical Ventilator 50 08/07/19 05:30 75 19 143/105 (118) 94 08/07/19 05:09 76 20 70 08/07/19 05:00 77 20 145/99 (114) 94 08/07/19 05:00 20 123/65 Mechanical Ventilator 50 08/07/19 04:30 76 20 152/105 (121) 94 08/07/19 04:00 98.4 78 20 148/109 (122) 95 08/07/19 04:00 Mechanical Ventilator 08/07/19 04:00 50 08/07/19 04:00 71 08/07/19 04:00 20 142/69 Mechanical Ventilator 50 08/07/19 03:30 80 20 148/114 (125) 94 08/07/19 03:17 77 20 70 08/07/19 03:00 80 20 156/104 (121) 94 08/07/19 02:30 72 20 142/97 (112) 94 08/07/19 02:00 20 150/85 Mechanical Ventilator 50 08/07/19 02:00 20 143/71 Mechanical Ventilator 50 08/07/19 02:00 77 20 143/98 (113) 93 08/07/19 01:36 73 20 70 08/07/19 01:30 76 20 142/91 (108) 94 08/07/19 01:00 75 19 154/88 (110) 95 08/07/19 01:00 20 142/91 Mechanical Ventilator 50 08/07/19 00:30 77 20 141/100 (114) 95 4/9/20 00:00 75 08/07/19 00:00 99.1 82 20 145/93 (110) 93 08/07/19 00:00 Mechanical Ventilator 08/07/19 00:00 50 08/07/19 00:00 20 145/93 Mechanical Ventilator 50 08/06/19 23:39 69 20 70 08/06/19 23:30 83 21 169/109 (129) 98 08/06/19 23:00 20 150/82 Mechanical Ventilator 50 08/06/19 23:00 77 20 148/88 (108) 98 08/06/19 22:32 25 150/91 Mechanical Ventilator 40 08/06/19 22:30 75 20 149/92 (111) 97 08/06/19 22:00 20 145/79 Mechanical Ventilator 50 08/06/19 22:00 78 20 135/95 (108) 96 Intake and Output 08/06/19 08/07/19 19:00 07:00 Intake Total 421.156 ml 1127.510 ml Output Total 546 ml 2150 ml Balance -124.844 ml -1022.490 ml IV Total 421.156 ml 1127.510 ml Output Urine Total 546 ml 2150 ml Laboratory Tests 08/07/19 04:00: White Blood Count 8.8, Red Blood Count 5.77, Hemoglobin 15.1, Hematocrit 48.4, Mean Corpuscular Volume 84, Mean Corpuscular Hemoglobin 26.3L, Mean Corpuscular Hemoglobin Concent 31.3L, Red Cell Distribution Width 14.3, Platelet Count 180, Mean Platelet Volume 7.1, Neutrophils (%) (Auto) 81.6H, Lymphocytes (%) (Auto) 7.7L, Monocytes (%) (Auto) 10.1H, Eosinophils (%) (Auto) 0.4, Basophils (%) ( Auto) 0.2, D-Dimer 1.43H, Sodium Level 142, Potassium Level 3.4L, Chloride Level 93L, Carbon Dioxide Level > 45*H, Blood Urea Nitrogen 26H, Creatinine 1.2 , Estimat Glomerular Filtration Rate > 60, Glucose Level 84, Hemoglobin A1c 6.3H , Uric Acid 5.1, Calcium Level 9.0, Phosphorus Level 2.7, Magnesium Level 1.9, Ferritin 88, Total Bilirubin 0.8, Gamma Glutamyl Transpeptidase 24, Aspartate Amino Transf (AST/SGOT) 19, Alanine Aminotransferase (ALT/SGPT) 18, Alkaline Phosphatase 74, Lactate Dehydrogenase 436H, Troponin I 0.024, C-Reactive Protein , Quantitative 3.2H, Pro-B-Type Natriuretic Peptide 624H, Total Protein 7.2, Albumin 3.2L, Globulin 4.0, Albumin/Globulin Ratio 0.8L, Triglycerides Level 91 , Cholesterol Level 152, LDL Cholesterol 81, HDL Cholesterol 53, Cholesterol/ HDL Ratio 2.9L, Thyroid Stimulating Hormone (TSH) 0.789, HIV (1&2) Antibody Rapid Negative 08/07/19 04:30: Urine Legionella Antigen [Pending] 08/07/19 08:33: Arterial Blood pH 7.492H, Arterial Blood Partial Pressure CO2 66.1*H, Arterial Blood Partial Pressure O2 67.0L, Arterial Blood HCO3 49.5*H, Arterial Blood Oxygen Saturation 93.6L, Arterial Blood Base Excess 21.6*H, [place] Test Positive Height (Feet): 6 Height (Inches): 1.00 Weight (Pounds): 212 Santi Ortez MD Aug 07, 2019 21:53
[2019-08-08] VITALS (50 sets, daily range): BP systolic 111–168; BP diastolic 74–107
[2019-08-08] MEDS: acetaZOLAMIDE 500mg Inj IVP SCH ×2 (00:44→06:28)
[2019-08-08 07:29] LABS: BASOPHILS % (AUTO) 1.4 % (0.0-2.0); EOSINOPHILS % (AUTO) 1.1 % (0.0-3.0); HEMATOCRIT 48.7 % (42.0-52.0); HEMOGLOBIN 15.2 G/DL (14.2-18.0); MEAN CORPUSCULAR VOLUME 84 FL (80-99); MONOCYTES % (AUTO) 9.5 % (1.0-10.0); NEUTROPHILS % (AUTO) 80.1 % (45.0-75.0); PLATELET COUNT 190 K/UL (150-450); RED CELL DISTRIBUTION WIDTH 18.1 % (11.6-14.8); WHITE BLOOD COUNT 8.1 K/UL (4.8-10.8)
[2019-08-08 07:51] LABS: ALANINE AMINOTRANSFERASE 16 U/L (12-78); ALBUMIN 3.3 G/DL (3.4-5.0); ALBUMIN/GLOBULIN RATIO 0.8 (1.0-2.7); ALKALINE PHOSPHATASE 79 U/L (46-116); ANION GAP 4 mmol/L (5-15); ASPARTATE AMINO TRANSFERASE 22 U/L (15-37); BILIRUBIN,TOTAL 0.7 MG/DL (0.2-1.0); BLOOD UREA NITROGEN 32 mg/dL (7-18); CHLORIDE 93 MMOL/L (98-107); CREATININE 1.9 MG/DL (0.55-1.30); PHOSPHORUS 6.3 MG/DL (2.5-4.9); POTASSIUM 3.4 MMOL/L (3.5-5.1); SODIUM 140 MMOL/L (136-145)
[2019-08-08 07:53] LABS: CARBON DIOXIDE 41 MMOL/L (21-32)
[2019-08-08] MEDS: Enoxaparin 40mg Inj SUBQ SCH (08:04)
[2019-08-08] MEDS: Pantoprazole Inj IVP SCH ×2 (08:04→20:08)
--- NOTE | 2019-08-08 09:55 | Diagnostic Imaging Report ---
Indication: Dyspnea Technique: One view of the chest Comparison: For 11/17/2019 Findings: Stable satisfactory position of endotracheal and orogastric tube. Irregular parenchymal opacity is seen in the left infrahilar region, probably not significantly changed allowing for differences in rotation. More generalized interstitial disease appears improved, however. Impression: Improving interstitial disease, over 3 days. Persistent irregular left infrahilar opacity may reflect some residual infiltrate
--- NOTE | 2019-08-08 10:54 | Infectious Diseases Prog Note ---
Assessment/Plan Assessment/Plan IMPRESSION: COPD exacerbation, Hypercapnic respiratory failure CHF exacerbation, Diastolic Hypertension, Pulmonary hypertension, Chronic kidney disease, sleep apnea. RECOMMENDATION: We will continue ceftriaxone & azithromycin. Negative COVID19 tests. Improving chest x-ray. Subjective ROS Limited/Unobtainable: Yes Cardiovascular: Reports: other - on lasix drip Allergies: Coded Allergies: No Known Allergies (Unverified , 07/23/16) Objective Vital Signs Last 24 Hour Vital Signs Date Time Temp Pulse Resp B/P (MAP) Pulse Ox O2 Delivery O2 Flow Rate FiO2 08/08/19 09:09 89 21 60 08/08/19 08:00 97.5 86 22 129/87 (101) 95 08/08/19 08:00 Mechanical Ventilator Mechanical Ventilator 08/08/19 08:00 20 129/87 Mechanical Ventilator 60 08/08/19 08:00 60 08/08/19 07:30 84 22 121/87 (98) 95 08/08/19 07:06 89 22 60 08/08/19 07:02 21 127/87 Mechanical Ventilator 60.0 60 08/08/19 07:00 85 21 123/86 (98) 95 08/08/19 06:30 87 20 08/08/19 06:00 86 21 127/87 (100) 95 08/08/19 06:00 21 127/87 Mechanical Ventilator 60 08/08/19 05:30 86 20 123/80 (94) 97 08/08/19 05:26 86 21 60 08/08/19 05:00 87 20 130/84 (99) 97 08/08/19 05:00 21 123/80 Mechanical Ventilator 60 08/08/19 04:30 87 20 131/84 (100) 96 08/08/19 04:00 Mechanical Ventilator Mechanical Ventilator 08/08/19 04:00 98.8 88 21 128/94 (105) 96 08/08/19 04:00 21 131/84 Mechanical Ventilator 60 08/08/19 04:00 86 08/08/19 04:00 60 08/08/19 03:30 85 22 141/85 (103) 97 08/08/19 03:28 87 21 60 08/08/19 03:00 87 23 142/83 (102) 97 08/08/19 03:00 21 141/85 Mechanical Ventilator 60 08/08/19 02:30 91 20 145/83 (103) 96 08/08/19 02:00 21 145/83 Mechanical Ventilator 60 08/08/19 02:00 89 22 168/107 (127) 97 08/08/19 01:30 92 23 137/89 (105) 97 08/08/19 01:24 93 22 60 08/08/19 01:00 95 21 135/86 (102) 97 08/08/19 00:59 21 140/85 Mechanical Ventilator 60 08/08/19 00:34 20 140/85 Mechanical Ventilator 50 08/08/19 00:30 95 24 145/89 (107) 98 08/08/19 00:00 99 08/08/19 00:00 21 145/89 Mechanical Ventilator 60 08/08/19 00:00 98.6 96 18 145/94 (111) 95 08/08/19 00:00 Mechanical Ventilator Mechanical Ventilator 08/08/19 00:00 60 08/07/19 23:30 97 20 144/97 (113) 95 08/07/19 23:14 94 21 60 08/07/19 23:00 21 144/97 Mechanical Ventilator 60 08/07/19 23:00 95 22 145/98 (114) 95 08/07/19 22:30 96 22 144/91 (108) 94 08/07/19 22:00 18 142/96 Mechanical Ventilator 60 08/07/19 22:00 96 17 142/96 (111) 94 08/07/19 21:30 94 22 148/96 (113) 95 08/07/19 21:16 92 23 60 08/07/19 21:00 17 148/96 Non-Rebreather 60 08/07/19 21:00 95 11 135/84 (101) 94 08/07/19 20:30 98 14 131/78 (95) 93 08/07/19 20:00 60 08/07/19 20:00 Mechanical Ventilator Mechanical Ventilator 08/07/19 20:00 21 131/78 Mechanical Ventilator 60 08/07/19 20:00 85 08/07/19 20:00 98.8 88 23 163/108 (126) 92 08/07/19 19:51 88 23 60 08/07/19 19:30 84 23 159/105 (123) 95 08/07/19 19:00 84 20 139/96 (110) 93 08/07/19 19:00 20 130/91 Mechanical Ventilator 60 08/07/19 18:30 86 21 130/91 (104) 93 08/07/19 18:00 85 23 126/90 (102) 94 08/07/19 18:00 23 130/91 Mechanical Ventilator 60 08/07/19 17:30 82 25 148/84 (105) 96 08/07/19 17:07 87 22 60 08/07/19 17:00 22 152/93 Mechanical Ventilator 60 08/07/19 17:00 86 22 152/93 (112) 95 08/07/19 16:30 86 21 148/94 (112) 95 08/07/19 16:00 Mechanical Ventilator Mechanical Ventilator 08/07/19 16:00 98.8 84 21 144/94 (111) 94 08/07/19 16:00 21 144/94 Mechanical Ventilator 60 08/07/19 16:00 89 08/07/19 16:00 60 08/07/19 15:30 88 21 151/99 (116) 94 08/07/19 15:06 89 21 60 08/07/19 15:00 91 20 157/122 (134) 94 08/07/19 15:00 21 157/122 Mechanical Ventilator 60 08/07/19 14:30 87 20 153/91 (111) 93 08/07/19 14:00 20 153/91 Mechanical Ventilator 60 08/07/19 14:00 89 21 165/97 (119) 95 08/07/19 13:30 89 21 165/102 (123) 94 08/07/19 13:17 83 21 60 08/07/19 13:00 86 20 156/105 (122) 92 08/07/19 13:00 20 156/105 Mechanical Ventilator 60 08/07/19 12:30 88 21 157/100 (119) 91 08/07/19 12:00 60 08/07/19 12:00 21 166/101 Mechanical Ventilator 60.0 08/07/19 12:00 98.3 85 21 166/101 (122) 94 08/07/19 12:00 Mechanical Ventilator Mechanical Ventilator 08/07/19 12:00 80 08/07/19 11:30 82 20 149/95 (113) 94 08/07/19 11:00 81 20 140/95 (110) 94 08/07/19 11:00 20 149/95 Mechanical Ventilator 60 08/07/19 10:55 81 20 60 Height (Feet): 6 Height (Inches): 1.00 Weight (Pounds): 212 HEENT: other - orally intubated Respiratory/Chest: lungs clear, other - on ventilator Cardiovascular: normal rate Abdomen: soft, non tender, other - orogastric tube feeding Extremities: no edema, other - bilateral SCD of legs Neurologic/Psychiatric: other - sedated, opens eyes Microbiology Date/Time Source Procedure Growth Status 08/05/19 22:58 Blood Not Otherwise Specified Blood Culture - Preliminary NO GROWTH AFTER 48 HOURS Resulted 08/05/19 22:50 Blood Not Otherwise Specified Blood Culture - Preliminary NO GROWTH AFTER 48 HOURS Resulted 08/05/19 23:50 Nasal Nares MRSA Culture - Final NO METHICILLIN RESISTANT STAPH AUREUS... Complete 08/05/19 22:50 Nasopharynx Coronavirus COVID-19 PCR (ANNITA) - Final Complete 08/05/19 23:50 Rectum - Final NO CARBAPENEM-RESISTANT ENTEROBACTERI... Complete 08/05/19 23:50 Rectum VRE Culture - Final NO VANCOMYCIN RESISTANT ENTEROCOCCUS ... Complete Laboratory Tests Test 08/08/19 06:00 White Blood Count 8.1 K/UL (4.8-10.8) Red Blood Count 5.80 M/UL (4.70-6.10) Hemoglobin 15.2 G/DL (14.2-18.0) Hematocrit 48.7 % (42.0-52.0) Mean Corpuscular Volume 84 FL (80-99) Mean Corpuscular Hemoglobin 26.1 PG (27.0-31.0) L Mean Corpuscular Hemoglobin Concent 31.1 G/DL (32.0-36.0) L Red Cell Distribution Width 18.1 % (11.6-14.8) H Platelet Count 190 K/UL (150-450) Mean Platelet Volume 9.7 FL (6.5-10.1) Neutrophils (%) (Auto) 80.1 % (45.0-75.0) H Lymphocytes (%) (Auto) 8.0 % (20.0-45.0) L Monocytes (%) (Auto) 9.5 % (1.0-10.0) Eosinophils (%) (Auto) 1.1 % (0.0-3.0) Basophils (%) (Auto) 1.4 % (0.0-2.0) Sodium Level 140 MMOL/L (136-145) Potassium Level 3.4 MMOL/L (3.5-5.1) L Chloride Level 93 MMOL/L (98-107) L Carbon Dioxide Level 41 MMOL/L (21-32) *H Anion Gap 4 mmol/L (5-15) L Blood Urea Nitrogen 32 mg/dL (7-18) H Creatinine 1.9 MG/DL (0.55-1.30) #H Estimat Glomerular Filtration Rate 43.5 mL/min (>60) Glucose Level 111 MG/DL (74-106) H Uric Acid 5.8 MG/DL (2.6-7.2) Calcium Level 9.0 MG/DL (8.5-10.1) Phosphorus Level 6.3 MG/DL (2.5-4.9) H Magnesium Level 2.3 MG/DL (1.8-2.4) Total Bilirubin 0.7 MG/DL (0.2-1.0) Aspartate Amino Transf (AST/SGOT) 22 U/L (15-37) Alanine Aminotransferase (ALT/SGPT) 16 U/L (12-78) Alkaline Phosphatase 79 U/L (46-116) C-Reactive Protein, Quantitative 4.1 mg/dL (0.00-0.90) H Pro-B-Type Natriuretic Peptide 260 pg/mL (0-125) H Total Protein 7.5 G/DL (6.4-8.2) Albumin 3.3 G/DL (3.4-5.0) L Globulin 4.2 g/dL Albumin/Globulin Ratio 0.8 (1.0-2.7) L Triglycerides Level 152 MG/DL (30-150) H Current Medications Medications (Trade) Dose Ordered Sig/Judy Route PRN Reason Start Time Stop Time Status Last Admin Dose Admin Azithromycin 500 mg/Dextrose 275 ml @ 275 mls/hr Q24HRS IV 08/06/19 21:00 08/12/19 21:59 08/07/19 21:19 Ceftriaxone Sodium 1 gm/ Dextrose 55 ml @ 110 mls/hr Q24H IVPB 08/06/19 20:00 08/13/19 19:59 08/07/19 18:58 Chlorhexidine Gluconate (Jessenia-Hex 2%) 1 applic DAILY@2000 TOPIC 08/06/19 20:00 11/04/19 19:59 08/07/19 20:07 Clonidine HCl (Catapres tab) 0.2 mg Q2H PRN GT SBP>170 08/07/19 13:00 11/05/19 12:59 Dextrose (Dextrose 50%) 25 ml Q30M PRN IV Hypoglycemia 08/06/19 10:30 11/04/19 10:29 Dextrose (Dextrose 50%) 50 ml Q30M PRN IV Hypoglycemia 08/06/19 10:30 11/04/19 10:29 Enoxaparin Sodium (Lovenox) 40 mg Q24HRS@0900 SUBQ 08/06/19 11:00 11/04/19 10:59 08/08/19 08:04 Furosemide 100 mg/ Dextrose 100 ml @ 10 mls/hr Q10H IV 08/06/19 14:30 09/05/19 14:29 08/08/19 03:21 Hydralazine HCl (Apresoline) 10 mg Q2H PRN IV SBP>170 08/07/19 13:00 11/05/19 12:59 Pantoprazole (Protonix) 40 mg EVERY 12 HOURS IVP 08/06/19 10:00 09/05/19 09:59 08/08/19 08:04 Potassium Chloride (K-Dur) 20 meq TWICE A DAY NG 08/07/19 09:00 11/05/19 08:59 08/08/19 08:04 Propofol 100 ml @ 0 mls/hr Q24H IV 08/08/19 06:45 08/10/19 06:44 08/08/19 07:02 Jesús Rose MD Aug 08, 2019 10:54
--- NOTE | 2019-08-08 11:16 | Pulmonology Progress Note ---
Assessment/Plan Assessment/Plan IMPRESSION: 1. Decompensated congestive heart failure. 2. COPD with respiratory acidosis. 3. Respiratory failure. 4. Obesity. 5. Acute on chronic respiratory acidosis. DISCUSSION: DC lasix Added steroids Continue broad-spectrum antibiotics. Propofol for sedation. Keep vent on AC mode. Decrease FiO2 and PEEP as tolerated. I will follow. Mitchell Cassidy M.D. Subjective Interval Events: Remains intubated Constitutional: Reports: no symptoms HEENT: Repors: no symptoms Respiratory: Reports: no symptoms Cardiovascular: Reports: no symptoms Gastrointestinal/Abdominal: Reports: no symptoms Allergies: Coded Allergies: No Known Allergies (Unverified , 07/23/16) Objective Last 24 Hour Vital Signs Date Time Temp Pulse Resp B/P (MAP) Pulse Ox O2 Delivery O2 Flow Rate FiO2 08/08/19 11:09 89 20 60 08/08/19 09:09 89 21 60 08/08/19 08:00 97.5 86 22 129/87 (101) 95 08/08/19 08:00 Mechanical Ventilator Mechanical Ventilator 08/08/19 08:00 20 129/87 Mechanical Ventilator 60 08/08/19 08:00 60 08/08/19 07:30 84 22 121/87 (98) 95 08/08/19 07:06 89 22 60 08/08/19 07:02 21 127/87 Mechanical Ventilator 60.0 60 08/08/19 07:00 85 21 123/86 (98) 95 08/08/19 06:30 87 20 08/08/19 06:00 86 21 127/87 (100) 95 08/08/19 06:00 21 127/87 Mechanical Ventilator 60 08/08/19 05:30 86 20 123/80 (94) 97 08/08/19 05:26 86 21 60 08/08/19 05:00 87 20 130/84 (99) 97 08/08/19 05:00 21 123/80 Mechanical Ventilator 60 08/08/19 04:30 87 20 131/84 (100) 96 08/08/19 04:00 Mechanical Ventilator Mechanical Ventilator 08/08/19 04:00 98.8 88 21 128/94 (105) 96 08/08/19 04:00 21 131/84 Mechanical Ventilator 60 08/08/19 04:00 86 08/08/19 04:00 60 08/08/19 03:30 85 22 141/85 (103) 97 08/08/19 03:28 87 21 60 08/08/19 03:00 87 23 142/83 (102) 97 08/08/19 03:00 21 141/85 Mechanical Ventilator 60 08/08/19 02:30 91 20 145/83 (103) 96 08/08/19 02:00 21 145/83 Mechanical Ventilator 60 08/08/19 02:00 89 22 168/107 (127) 97 08/08/19 01:30 92 23 137/89 (105) 97 08/08/19 01:24 93 22 60 08/08/19 01:00 95 21 135/86 (102) 97 08/08/19 00:59 21 140/85 Mechanical Ventilator 60 08/08/19 00:34 20 140/85 Mechanical Ventilator 50 08/08/19 00:30 95 24 145/89 (107) 98 08/08/19 00:00 99 08/08/19 00:00 21 145/89 Mechanical Ventilator 60 08/08/19 00:00 98.6 96 18 145/94 (111) 95 08/08/19 00:00 Mechanical Ventilator Mechanical Ventilator 08/08/19 00:00 60 08/07/19 23:30 97 20 144/97 (113) 95 08/07/19 23:14 94 21 60 08/07/19 23:00 21 144/97 Mechanical Ventilator 60 08/07/19 23:00 95 22 145/98 (114) 95 08/07/19 22:30 96 22 144/91 (108) 94 08/07/19 22:00 18 142/96 Mechanical Ventilator 60 08/07/19 22:00 96 17 142/96 (111) 94 08/07/19 21:30 94 22 148/96 (113) 95 08/07/19 21:16 92 23 60 08/07/19 21:00 17 148/96 Non-Rebreather 60 08/07/19 21:00 95 11 135/84 (101) 94 08/07/19 20:30 98 14 131/78 (95) 93 08/07/19 20:00 60 08/07/19 20:00 Mechanical Ventilator Mechanical Ventilator 08/07/19 20:00 21 131/78 Mechanical Ventilator 60 08/07/19 20:00 85 08/07/19 20:00 98.8 88 23 163/108 (126) 92 08/07/19 19:51 88 23 60 08/07/19 19:30 84 23 159/105 (123) 95 08/07/19 19:00 84 20 139/96 (110) 93 08/07/19 19:00 20 130/91 Mechanical Ventilator 60 08/07/19 18:30 86 21 130/91 (104) 93 08/07/19 18:00 85 23 126/90 (102) 94 08/07/19 18:00 23 130/91 Mechanical Ventilator 60 08/07/19 17:30 82 25 148/84 (105) 96 08/07/19 17:07 87 22 60 08/07/19 17:00 22 152/93 Mechanical Ventilator 60 08/07/19 17:00 86 22 152/93 (112) 95 08/07/19 16:30 86 21 148/94 (112) 95 08/07/19 16:00 Mechanical Ventilator Mechanical Ventilator 08/07/19 16:00 98.8 84 21 144/94 (111) 94 08/07/19 16:00 21 144/94 Mechanical Ventilator 60 08/07/19 16:00 89 08/07/19 16:00 60 08/07/19 15:30 88 21 151/99 (116) 94 08/07/19 15:06 89 21 60 08/07/19 15:00 91 20 157/122 (134) 94 08/07/19 15:00 21 157/122 Mechanical Ventilator 60 08/07/19 14:30 87 20 153/91 (111) 93 08/07/19 14:00 20 153/91 Mechanical Ventilator 60 08/07/19 14:00 89 21 165/97 (119) 95 08/07/19 13:30 89 21 165/102 (123) 94 08/07/19 13:17 83 21 60 08/07/19 13:00 86 20 156/105 (122) 92 08/07/19 13:00 20 156/105 Mechanical Ventilator 60 08/07/19 12:30 88 21 157/100 (119) 91 08/07/19 12:00 60 08/07/19 12:00 21 166/101 Mechanical Ventilator 60.0 08/07/19 12:00 98.3 85 21 166/101 (122) 94 08/07/19 12:00 Mechanical Ventilator Mechanical Ventilator 08/07/19 12:00 80 08/07/19 11:30 82 20 149/95 (113) 94 Intake and Output 08/07/19 08/08/19 19:00 07:00 Intake Total 780.74111 ml 979.39598 ml Output Total 1350 ml 805 ml Balance -569.93112 ml 174.28763 ml Intake Free Water 20 ml 50 ml IV Total 400.04366 ml 599.04580 ml Tube Feeding 360 ml 330 ml Output Urine Total 1350 ml 805 ml General Appearance: no acute distress HEENT: normocephalic Respiratory/Chest: chest wall non-tender, lungs clear Cardiovascular: normal peripheral pulses Abdomen: normal bowel sounds Microbiology Date/Time Source Procedure Growth Status 08/05/19 22:58 Blood Not Otherwise Specified Blood Culture - Preliminary NO GROWTH AFTER 48 HOURS Resulted 08/05/19 22:50 Blood Not Otherwise Specified Blood Culture - Preliminary NO GROWTH AFTER 48 HOURS Resulted 08/05/19 23:50 Nasal Nares MRSA Culture - Final NO METHICILLIN RESISTANT STAPH AUREUS... Complete 08/05/19 22:50 Nasopharynx Coronavirus COVID-19 PCR (ANNITA) - Final Complete 08/05/19 23:50 Rectum - Final NO CARBAPENEM-RESISTANT ENTEROBACTERI... Complete 08/05/19 23:50 Rectum VRE Culture - Final NO VANCOMYCIN RESISTANT ENTEROCOCCUS ... Complete Laboratory Tests 08/08/19 06:00: White Blood Count 8.1, Red Blood Count 5.80, Hemoglobin 15.2, Hematocrit 48.7, Mean Corpuscular Volume 84, Mean Corpuscular Hemoglobin 26.1L, Mean Corpuscular Hemoglobin Concent 31.1L, Red Cell Distribution Width 18.1H, Platelet Count 190 , Mean Platelet Volume 9.7, Neutrophils (%) (Auto) 80.1H, Lymphocytes (%) (Auto ) 8.0L, Monocytes (%) (Auto) 9.5, Eosinophils (%) (Auto) 1.1, Basophils (%) ( Auto) 1.4, Sodium Level 140, Potassium Level 3.4L, Chloride Level 93L, Carbon Dioxide Level 41*H, Anion Gap 4L, Blood Urea Nitrogen 32H, Creatinine 1.9#H, Estimat Glomerular Filtration Rate 43.5, Glucose Level 111H, Uric Acid 5.8, Calcium Level 9.0, Phosphorus Level 6.3H, Magnesium Level 2.3, Total Bilirubin 0.7, Aspartate Amino Transf (AST/SGOT) 22, Alanine Aminotransferase (ALT/SGPT) 16, Alkaline Phosphatase 79, C-Reactive Protein, Quantitative 4.1H, Pro-B-Type Natriuretic Peptide 260H, Total Protein 7.5, Albumin 3.3L, Globulin 4.2, Albumin /Globulin Ratio 0.8L, Triglycerides Level 152H Current Medications Medications (Trade) Dose Ordered Sig/Judy Route PRN Reason Start Time Stop Time Status Last Admin Dose Admin Acetazolamide (Diamox) 250 mg TWICE A DAY NG 08/08/19 12:00 09/07/19 11:59 Azithromycin 500 mg/Dextrose 275 ml @ 275 mls/hr Q24HRS IV 08/06/19 21:00 08/12/19 21:59 08/07/19 21:19 Ceftriaxone Sodium 1 gm/ Dextrose 55 ml @ 110 mls/hr Q24H IVPB 08/06/19 20:00 08/13/19 19:59 08/07/19 18:58 Chlorhexidine Gluconate (Jessenia-Hex 2%) 1 applic DAILY@2000 TOPIC 08/06/19 20:00 11/04/19 19:59 08/07/19 20:07 Clonidine HCl (Catapres tab) 0.2 mg Q2H PRN GT SBP>170 08/07/19 13:00 11/05/19 12:59 Dextrose (Dextrose 50%) 25 ml Q30M PRN IV Hypoglycemia 08/06/19 10:30 11/04/19 10:29 Dextrose (Dextrose 50%) 50 ml Q30M PRN IV Hypoglycemia 08/06/19 10:30 11/04/19 10:29 Enoxaparin Sodium (Lovenox) 40 mg Q24HRS@0900 SUBQ 08/06/19 11:00 11/04/19 10:59 08/08/19 08:04 Hydralazine HCl (Apresoline) 10 mg Q2H PRN IV SBP>170 08/07/19 13:00 11/05/19 12:59 Pantoprazole (Protonix) 40 mg EVERY 12 HOURS IVP 08/06/19 10:00 09/05/19 09:59 08/08/19 08:04 Potassium Chloride (K-Dur) 40 meq TWICE A DAY NG 08/08/19 18:00 11/05/19 08:59 Propofol 100 ml @ 0 mls/hr Q24H IV 08/08/19 06:45 08/10/19 06:44 08/08/19 07:02 Mitchell Cassidy MD Aug 08, 2019 11:16
[2019-08-08] MEDS: Solu-MEDROL 40mg Inj IVP SCH ×2 (12:19→20:14)
--- NOTE | 2019-08-08 14:03 | Cardiac Electrophysiology PN ---
Assessment/Plan Assessment/Plan 1. Respiratory failure,intubated on the vent could be due to combination of congestive heart failure as well as COPD. His BNP is more than 5000. Echocardiogram is pending. Lasix drip DCed as renal failure getting worse Ruled out for DE 2. PNA Copvid is negative, under management of Dr. Cassidy on ceftriaxone and azithromycin. 3. ARF. DC lasix 4. COPD. DW RN Subjective Subjective In ICU on the vent. Covid test negative . ECHO pending. Lasix drip DCed. On Diamox and Propofol. On 60% Fio2 on the Vent Objective Last 24 Hour Vital Signs Date Time Temp Pulse Resp B/P (MAP) Pulse Ox O2 Delivery O2 Flow Rate FiO2 08/08/19 13:06 89 20 60 08/08/19 12:30 86 20 119/86 (97) 96 08/08/19 12:00 84 08/08/19 12:00 98.1 88 20 117/83 (94) 95 08/08/19 12:00 20 119/86 Mechanical Ventilator 60 08/08/19 12:00 60 08/08/19 12:00 Mechanical Ventilator Mechanical Ventilator 08/08/19 11:30 86 20 130/87 (101) 96 08/08/19 11:09 89 20 60 08/08/19 11:00 87 21 127/89 (102) 96 08/08/19 11:00 20 130/87 Mechanical Ventilator 60 08/08/19 10:30 88 21 119/86 (97) 96 08/08/19 10:00 20 128/88 Mechanical Ventilator 60 08/08/19 10:00 86 20 128/88 (101) 96 08/08/19 09:30 89 19 126/87 (100) 96 08/08/19 09:09 89 21 60 08/08/19 09:00 20 126/87 Mechanical Ventilator 60 08/08/19 09:00 89 20 137/94 (108) 94 08/08/19 08:00 97.5 86 22 129/87 (101) 95 08/08/19 08:00 Mechanical Ventilator Mechanical Ventilator 08/08/19 08:00 20 129/87 Mechanical Ventilator 60 08/08/19 08:00 83 08/08/19 08:00 60 08/08/19 07:30 84 22 121/87 (98) 95 08/08/19 07:06 89 22 60 08/08/19 07:02 21 127/87 Mechanical Ventilator 60.0 60 08/08/19 07:00 85 21 123/86 (98) 95 08/08/19 06:30 87 20 08/08/19 06:00 86 21 127/87 (100) 95 08/08/19 06:00 21 127/87 Mechanical Ventilator 60 08/08/19 05:30 86 20 123/80 (94) 97 08/08/19 05:26 86 21 60 08/08/19 05:00 87 20 130/84 (99) 97 08/08/19 05:00 21 123/80 Mechanical Ventilator 60 08/08/19 04:30 87 20 131/84 (100) 96 08/08/19 04:00 Mechanical Ventilator Mechanical Ventilator 08/08/19 04:00 98.8 88 21 128/94 (105) 96 08/08/19 04:00 21 131/84 Mechanical Ventilator 60 08/08/19 04:00 86 08/08/19 04:00 60 08/08/19 03:30 85 22 141/85 (103) 97 08/08/19 03:28 87 21 60 08/08/19 03:00 87 23 142/83 (102) 97 08/08/19 03:00 21 141/85 Mechanical Ventilator 60 08/08/19 02:30 91 20 145/83 (103) 96 08/08/19 02:00 21 145/83 Mechanical Ventilator 60 08/08/19 02:00 89 22 168/107 (127) 97 08/08/19 01:30 92 23 137/89 (105) 97 08/08/19 01:24 93 22 60 08/08/19 01:00 95 21 135/86 (102) 97 08/08/19 00:59 21 140/85 Mechanical Ventilator 60 08/08/19 00:34 20 140/85 Mechanical Ventilator 50 08/08/19 00:30 95 24 145/89 (107) 98 08/08/19 00:00 99 08/08/19 00:00 21 145/89 Mechanical Ventilator 60 08/08/19 00:00 98.6 96 18 145/94 (111) 95 08/08/19 00:00 Mechanical Ventilator Mechanical Ventilator 08/08/19 00:00 60 4/9/20 23:30 97 20 144/97 (113) 95 08/07/19 23:14 94 21 60 08/07/19 23:00 21 144/97 Mechanical Ventilator 60 08/07/19 23:00 95 22 145/98 (114) 95 08/07/19 22:30 96 22 144/91 (108) 94 08/07/19 22:00 18 142/96 Mechanical Ventilator 60 08/07/19 22:00 96 17 142/96 (111) 94 08/07/19 21:30 94 22 148/96 (113) 95 08/07/19 21:16 92 23 60 08/07/19 21:00 17 148/96 Non-Rebreather 60 08/07/19 21:00 95 11 135/84 (101) 94 08/07/19 20:30 98 14 131/78 (95) 93 08/07/19 20:00 60 08/07/19 20:00 Mechanical Ventilator Mechanical Ventilator 08/07/19 20:00 21 131/78 Mechanical Ventilator 60 08/07/19 20:00 85 08/07/19 20:00 98.8 88 23 163/108 (126) 92 08/07/19 19:51 88 23 60 08/07/19 19:30 84 23 159/105 (123) 95 08/07/19 19:00 84 20 139/96 (110) 93 08/07/19 19:00 20 130/91 Mechanical Ventilator 60 08/07/19 18:30 86 21 130/91 (104) 93 08/07/19 18:00 85 23 126/90 (102) 94 08/07/19 18:00 23 130/91 Mechanical Ventilator 60 08/07/19 17:30 82 25 148/84 (105) 96 08/07/19 17:07 87 22 60 08/07/19 17:00 22 152/93 Mechanical Ventilator 60 08/07/19 17:00 86 22 152/93 (112) 95 08/07/19 16:30 86 21 148/94 (112) 95 08/07/19 16:00 Mechanical Ventilator Mechanical Ventilator 08/07/19 16:00 98.8 84 21 144/94 (111) 94 08/07/19 16:00 21 144/94 Mechanical Ventilator 60 08/07/19 16:00 89 08/07/19 16:00 60 08/07/19 15:30 88 21 151/99 (116) 94 08/07/19 15:06 89 21 60 08/07/19 15:00 91 20 157/122 (134) 94 08/07/19 15:00 21 157/122 Mechanical Ventilator 60 08/07/19 14:30 87 20 153/91 (111) 93 08/07/19 14:00 20 153/91 Mechanical Ventilator 60 08/07/19 14:00 89 21 165/97 (119) 95 Intake and Output 08/07/19 08/08/19 19:00 07:00 Intake Total 780.81137 ml 979.61734 ml Output Total 1350 ml 805 ml Balance -569.39802 ml 174.91783 ml Intake Free Water 20 ml 50 ml IV Total 400.27301 ml 599.57799 ml Tube Feeding 360 ml 330 ml Output Urine Total 1350 ml 805 ml Laboratory Tests Test 08/08/19 06:00 White Blood Count 8.1 K/UL (4.8-10.8) Red Blood Count 5.80 M/UL (4.70-6.10) Hemoglobin 15.2 G/DL (14.2-18.0) Hematocrit 48.7 % (42.0-52.0) Mean Corpuscular Volume 84 FL (80-99) Mean Corpuscular Hemoglobin 26.1 PG (27.0-31.0) L Mean Corpuscular Hemoglobin Concent 31.1 G/DL (32.0-36.0) L Red Cell Distribution Width 18.1 % (11.6-14.8) H Platelet Count 190 K/UL (150-450) Mean Platelet Volume 9.7 FL (6.5-10.1) Neutrophils (%) (Auto) 80.1 % (45.0-75.0) H Lymphocytes (%) (Auto) 8.0 % (20.0-45.0) L Monocytes (%) (Auto) 9.5 % (1.0-10.0) Eosinophils (%) (Auto) 1.1 % (0.0-3.0) Basophils (%) (Auto) 1.4 % (0.0-2.0) Sodium Level 140 MMOL/L (136-145) Potassium Level 3.4 MMOL/L (3.5-5.1) L Chloride Level 93 MMOL/L (98-107) L Carbon Dioxide Level 41 MMOL/L (21-32) *H Anion Gap 4 mmol/L (5-15) L Blood Urea Nitrogen 32 mg/dL (7-18) H Creatinine 1.9 MG/DL (0.55-1.30) #H Estimat Glomerular Filtration Rate 43.5 mL/min (>60) Glucose Level 111 MG/DL (74-106) H Uric Acid 5.8 MG/DL (2.6-7.2) Calcium Level 9.0 MG/DL (8.5-10.1) Phosphorus Level 6.3 MG/DL (2.5-4.9) H Magnesium Level 2.3 MG/DL (1.8-2.4) Total Bilirubin 0.7 MG/DL (0.2-1.0) Aspartate Amino Transf (AST/SGOT) 22 U/L (15-37) Alanine Aminotransferase (ALT/SGPT) 16 U/L (12-78) Alkaline Phosphatase 79 U/L (46-116) C-Reactive Protein, Quantitative 4.1 mg/dL (0.00-0.90) H Pro-B-Type Natriuretic Peptide 260 pg/mL (0-125) H Total Protein 7.5 G/DL (6.4-8.2) Albumin 3.3 G/DL (3.4-5.0) L Globulin 4.2 g/dL Albumin/Globulin Ratio 0.8 (1.0-2.7) L Triglycerides Level 152 MG/DL (30-150) H Microbiology Date/Time Source Procedure Growth Status 08/05/19 22:58 Blood Not Otherwise Specified Blood Culture - Preliminary NO GROWTH AFTER 48 HOURS Resulted 08/05/19 22:50 Blood Not Otherwise Specified Blood Culture - Preliminary NO GROWTH AFTER 48 HOURS Resulted 08/05/19 23:50 Nasal Nares MRSA Culture - Final NO METHICILLIN RESISTANT STAPH AUREUS... Complete 08/05/19 22:50 Nasopharynx Coronavirus COVID-19 PCR ([facility]) - Final Complete 08/05/19 23:50 Rectum - Final NO CARBAPENEM-RESISTANT ENTEROBACTERI... Complete 08/05/19 23:50 Rectum VRE Culture - Final NO VANCOMYCIN RESISTANT ENTEROCOCCUS ... Complete Objective HEAD AND NECK: No JVD. Orally intubated LUNGS: Coarse rhonchi bilaterally. CARDIOVASCULAR: Shows regular S1 and S2 with no gallop or murmur. ABDOMEN: Soft. EXTREMITIES: He has 1+ pitting edema. Livan Parker MD Aug 08, 2019 14:03
[2019-08-08] MEDS ORDERED: Azithromycin 500mg Inj IV ONE (20:01)
[2019-08-08] MEDS: Dyna-Hex 2% Top Sol 2oz TOPIC SCH (20:08)
[2019-08-08] MEDS: cefTRIAXone 1 GM in D5W 55 ML IVPB SCH (20:09)
[2019-08-08] MEDS: Azithromycin 500 MG in D5W 275 ML IV SCH (20:17)
--- NOTE | 2019-08-08 20:39 | General Progress Note ---
Assessment/Plan Problem List: (1) Respiratory failure ICD Codes: J96.90 - Respiratory failure, unspecified, unspecified whether with hypoxia or hypercapnia SNOMED: 528177453 (2) CHF exacerbation ICD Codes: I50.9 - Heart failure, unspecified SNOMED: 636135673, [id number] (3) COPD exacerbation ICD Codes: J44.1 - Chronic obstructive pulmonary disease with (acute) exacerbation SNOMED: 319404296 (4) Acute respiratory failure ICD Codes: J96.00 - Acute respiratory failure, unspecified whether with hypoxia or hypercapnia SNOMED: 25360733 (5) ATN (acute tubular necrosis) ICD Codes: N17.0 - Acute kidney failure with tubular necrosis SNOMED: 92040348 (6) Nephrotic syndrome ICD Codes: N04.9 - Nephrotic syndrome with unspecified morphologic changes SNOMED: 33419946 Status: unchanged Assessment/Plan: resp failure abx per id check cbc and lytes chf exac as well as pna not improving poor prognosis Subjective ROS Limited/Unobtainable: Yes Allergies: Coded Allergies: No Known Allergies (Unverified , 07/23/16) Objective Last 24 Hour Vital Signs Date Time Temp Pulse Resp B/P (MAP) Pulse Ox O2 Delivery O2 Flow Rate FiO2 08/08/19 19:16 92 20 60 08/08/19 19:15 20 130/80 Mechanical Ventilator 65 08/08/19 19:00 93 24 130/80 (97) 94 08/08/19 19:00 20 130/80 Mechanical Ventilator 65 08/08/19 18:00 22 128/79 Mechanical Ventilator 65 08/08/19 18:00 90 21 128/79 (95) 91 08/08/19 17:20 95 20 60 08/08/19 17:00 22 143/90 Mechanical Ventilator 60 08/08/19 17:00 93 20 134/85 (101) 91 08/08/19 16:00 99.2 94 20 143/90 (107) 93 08/08/19 16:00 91 08/08/19 16:00 21 143/90 Mechanical Ventilator 60 08/08/19 16:00 60 08/08/19 16:00 Mechanical Ventilator Mechanical Ventilator 08/08/19 15:46 96 25 60 08/08/19 15:30 88 22 121/82 (95) 93 08/08/19 15:00 90 22 125/86 (99) 93 08/08/19 15:00 20 126/86 Mechanical Ventilator 60 08/08/19 14:30 88 22 119/87 (98) 94 08/08/19 14:21 20 120/82 Mechanical Ventilator 60 08/08/19 14:00 87 21 120/82 (95) 95 08/08/19 14:00 22 119/87 Mechanical Ventilator 60 08/08/19 13:30 89 21 122/80 (94) 96 08/08/19 13:06 89 20 60 08/08/19 13:00 20 122/80 Mechanical Ventilator 60 08/08/19 13:00 87 20 125/82 (96) 96 08/08/19 12:30 86 20 119/86 (97) 96 08/08/19 12:00 84 08/08/19 12:00 98.1 88 20 117/83 (94) 95 08/08/19 12:00 20 119/86 Mechanical Ventilator 60 08/08/19 12:00 60 08/08/19 12:00 Mechanical Ventilator Mechanical Ventilator 08/08/19 11:30 86 20 130/87 (101) 96 08/08/19 11:09 89 20 60 08/08/19 11:00 87 21 127/89 (102) 96 08/08/19 11:00 20 130/87 Mechanical Ventilator 60 08/08/19 10:30 88 21 119/86 (97) 96 08/08/19 10:00 20 128/88 Mechanical Ventilator 60 08/08/19 10:00 86 20 128/88 (101) 96 08/08/19 09:30 89 19 126/87 (100) 96 08/08/19 09:09 89 21 60 08/08/19 09:00 20 126/87 Mechanical Ventilator 60 08/08/19 09:00 89 20 137/94 (108) 94 08/08/19 08:00 97.5 86 22 129/87 (101) 95 08/08/19 08:00 Mechanical Ventilator Mechanical Ventilator 08/08/19 08:00 20 129/87 Mechanical Ventilator 60 08/08/19 08:00 83 08/08/19 08:00 60 08/08/19 07:30 84 22 121/87 (98) 95 08/08/19 07:06 89 22 60 08/08/19 07:02 21 127/87 Mechanical Ventilator 60.0 60 08/08/19 07:00 85 21 123/86 (98) 95 08/08/19 06:30 87 20 08/08/19 06:00 86 21 127/87 (100) 95 08/08/19 06:00 21 127/87 Mechanical Ventilator 60 08/08/19 05:30 86 20 123/80 (94) 97 08/08/19 05:26 86 21 60 08/08/19 05:00 87 20 130/84 (99) 97 08/08/19 05:00 21 123/80 Mechanical Ventilator 60 08/08/19 04:30 87 20 131/84 (100) 96 08/08/19 04:00 Mechanical Ventilator Mechanical Ventilator 08/08/19 04:00 98.8 88 21 128/94 (105) 96 08/08/19 04:00 21 131/84 Mechanical Ventilator 60 08/08/19 04:00 86 08/08/19 04:00 60 08/08/19 03:30 85 22 141/85 (103) 97 08/08/19 03:28 87 21 60 08/08/19 03:00 87 23 142/83 (102) 97 08/08/19 03:00 21 141/85 Mechanical Ventilator 60 08/08/19 02:30 91 20 145/83 (103) 96 08/08/19 02:00 21 145/83 Mechanical Ventilator 60 08/08/19 02:00 89 22 168/107 (127) 97 08/08/19 01:30 92 23 137/89 (105) 97 08/08/19 01:24 93 22 60 08/08/19 01:00 95 21 135/86 (102) 97 08/08/19 00:59 21 140/85 Mechanical Ventilator 60 08/08/19 00:34 20 140/85 Mechanical Ventilator 50 08/08/19 00:30 95 24 145/89 (107) 98 08/08/19 00:00 99 08/08/19 00:00 21 145/89 Mechanical Ventilator 60 08/08/19 00:00 98.6 96 18 145/94 (111) 95 08/08/19 00:00 Mechanical Ventilator Mechanical Ventilator 08/08/19 00:00 60 08/07/19 23:30 97 20 144/97 (113) 95 08/07/19 23:14 94 21 60 08/07/19 23:00 21 144/97 Mechanical Ventilator 60 08/07/19 23:00 95 22 145/98 (114) 95 08/07/19 22:30 96 22 144/91 (108) 94 08/07/19 22:00 18 142/96 Mechanical Ventilator 60 08/07/19 22:00 96 17 142/96 (111) 94 08/07/19 21:30 94 22 148/96 (113) 95 08/07/19 21:16 92 23 60 08/07/19 21:00 17 148/96 Non-Rebreather 60 08/07/19 21:00 95 11 135/84 (101) 94 Intake and Output 08/07/19 08/08/19 19:00 07:00 Intake Total 780.30244 ml 979.69102 ml Output Total 1350 ml 805 ml Balance -569.48806 ml 174.96802 ml Intake Free Water 20 ml 50 ml IV Total 400.64982 ml 599.89185 ml Tube Feeding 360 ml 330 ml Output Urine Total 1350 ml 805 ml Laboratory Tests 08/08/19 06:00: White Blood Count 8.1, Red Blood Count 5.80, Hemoglobin 15.2, Hematocrit 48.7, Mean Corpuscular Volume 84, Mean Corpuscular Hemoglobin 26.1L, Mean Corpuscular Hemoglobin Concent 31.1L, Red Cell Distribution Width 18.1H, Platelet Count 190 , Mean Platelet Volume 9.7, Neutrophils (%) (Auto) 80.1H, Lymphocytes (%) (Auto ) 8.0L, Monocytes (%) (Auto) 9.5, Eosinophils (%) (Auto) 1.1, Basophils (%) ( Auto) 1.4, Sodium Level 140, Potassium Level 3.4L, Chloride Level 93L, Carbon Dioxide Level 41*H, Anion Gap 4L, Blood Urea Nitrogen 32H, Creatinine 1.9#H, Estimat Glomerular Filtration Rate 43.5, Glucose Level 111H, Uric Acid 5.8, Calcium Level 9.0, Phosphorus Level 6.3H, Magnesium Level 2.3, Total Bilirubin 0.7, Aspartate Amino Transf (AST/SGOT) 22, Alanine Aminotransferase (ALT/SGPT) 16, Alkaline Phosphatase 79, C-Reactive Protein, Quantitative 4.1H, Pro-B-Type Natriuretic Peptide 260H, Total Protein 7.5, Albumin 3.3L, Globulin 4.2, Albumin /Globulin Ratio 0.8L, Triglycerides Level 152H Height (Feet): 6 Height (Inches): 1.00 Weight (Pounds): 212 Santi Ortez MD Aug 08, 2019 20:39
[2019-08-09] VITALS (47 sets, daily range): BP systolic 110–172; BP diastolic 78–110
[2019-08-09 06:21] LABS: HEMATOCRIT 50.9 % (42.0-52.0); HEMOGLOBIN 16.2 G/DL (14.2-18.0); MEAN CORPUSCULAR VOLUME 83 FL (80-99); PLATELET COUNT 195 K/UL (150-450); RED BLOOD COUNT 6.14 M/UL (4.70-6.10); RED CELL DISTRIBUTION WIDTH 13.7 % (11.6-14.8); WHITE BLOOD COUNT 9.9 K/UL (4.8-10.8)
[2019-08-09 06:50] LABS: ALANINE AMINOTRANSFERASE 16 U/L (12-78); ALBUMIN 3.3 G/DL (3.4-5.0); ALBUMIN/GLOBULIN RATIO 0.7 (1.0-2.7); ALKALINE PHOSPHATASE 81 U/L (46-116); ANION GAP 8 mmol/L (5-15); ASPARTATE AMINO TRANSFERASE 18 U/L (15-37); BILIRUBIN,TOTAL 0.6 MG/DL (0.2-1.0); BLOOD UREA NITROGEN 43 mg/dL (7-18); CARBON DIOXIDE 34 MMOL/L (21-32); CHLORIDE 95 MMOL/L (98-107); CREATININE 1.9 MG/DL (0.55-1.30); PHOSPHORUS 7.2 MG/DL (2.5-4.9); POTASSIUM 4.2 MMOL/L (3.5-5.1); SODIUM 137 MMOL/L (136-145)
--- NOTE | 2019-08-09 08:57 | Diagnostic Imaging Report ---
EXAM: XR Chest, 1 View CLINICAL HISTORY: ABN CHST TECHNIQUE: Frontal view of the chest. COMPARISON: 08/08/19 FINDINGS: Lungs: There has been slight a worsening of bibasilar infiltrates, left greater than right suspicious for bibasilar pneumonia. Pleural space: There has been development of a small left pleural effusion. No pneumothorax. Heart: Unremarkable. No cardiomegaly. Mediastinum: Unremarkable. Bones/joints: Unremarkable. Tubes, lines and devices: There is a right-sided PICC line, at endotracheal tube and NG tube in unchanged position. IMPRESSION: There has been slight a worsening of bibasilar infiltrates, left greater than right suspicious for bibasilar pneumonia.
[2019-08-09] MEDS: Pantoprazole Inj IVP SCH ×2 (10:05→20:16)
[2019-08-09] MEDS: Solu-MEDROL 40mg Inj IVP SCH ×2 (10:05→20:16)
[2019-08-09] MEDS: Enoxaparin 40mg Inj SUBQ SCH (10:06)
--- NOTE | 2019-08-09 11:08 | Nephrology Progress Note ---
Assessment/Plan Problem List: (1) CAITLIN (acute kidney injury) (2) Hypokalemia (3) Acute respiratory failure (4) CHF (congestive heart failure) (5) COPD exacerbation Assessment Acute respiratory failure requiring intubation and mechanical ventilation , currently on FiO2 of 70% CHF (congestive heart failure), exacerbation COPD exacerbation Lymphopenia Plan Serum creatinine rising to 1.9 however stable for the past 48 hours Will discontinue Lasix drip Continue potassium supplement and Diamox as needed Vent management per pulmonary NG tube insertion Change feeding to Nepro Continue to monitor renal parameters IV Protonix Antibiotics Steroids initiated 2D echocardiogram ejection fraction 55% Monitor urine output and renal parameters Monitor immunoresponse parameters Per orders Subjective ROS Limited/Unobtainable: Yes Objective Objective Last 24 Hour Vital Signs Date Time Temp Pulse Resp B/P (MAP) Pulse Ox O2 Delivery O2 Flow Rate FiO2 08/09/19 09:15 84 24 80 08/09/19 07:29 79 24 80 08/09/19 07:21 20 141/81 Mechanical Ventilator 80 08/09/19 07:00 79 23 135/85 (102) 90 08/09/19 07:00 22 135/85 Mechanical Ventilator 80 08/09/19 06:30 80 20 08/09/19 06:30 80 25 129/89 (102) 90 08/09/19 06:24 80 08/09/19 06:00 82 26 136/81 (99) 91 08/09/19 06:00 21 136/81 Mechanical Ventilator 65 08/09/19 06:00 65 08/09/19 05:30 84 26 127/89 (102) 92 08/09/19 05:05 80 24 60 08/09/19 05:00 81 23 124/82 (96) 91 08/09/19 05:00 21 135/85 Mechanical Ventilator 65 08/09/19 04:30 84 26 130/85 (100) 91 08/09/19 04:00 Mechanical Ventilator Mechanical Ventilator 08/09/19 04:00 91 08/09/19 04:00 98.4 83 25 132/89 (103) 92 08/09/19 04:00 22 132/89 Mechanical Ventilator 65 08/09/19 03:30 84 25 129/87 (101) 92 08/09/19 03:19 85 22 60 08/09/19 03:00 22 131/87 Mechanical Ventilator 65 08/09/19 03:00 83 22 122/81 (95) 93 08/09/19 02:30 86 22 123/86 (98) 93 08/09/19 02:00 22 126/60 Mechanical Ventilator 65 08/09/19 02:00 89 21 118/81 (93) 94 08/09/19 01:31 21 126/85 Mechanical Ventilator 60.0 65 08/09/19 01:30 91 24 130/85 (100) 89 08/09/19 01:30 22 116/85 Mechanical Ventilator 65 08/09/19 01:00 95 25 136/89 (105) 90 08/09/19 01:00 22 126/85 Mechanical Ventilator 65 08/09/19 00:30 90 32 137/93 (108) 90 08/09/19 00:15 85 21 126/85 (99) 92 08/09/19 00:00 86 08/09/19 00:00 Mechanical Ventilator Mechanical Ventilator 08/09/19 00:00 65 08/09/19 00:00 21 126/85 Mechanical Ventilator 65 08/09/19 00:00 99.0 88 20 129/83 (98) 94 08/08/19 23:45 84 21 125/80 (95) 91 08/08/19 23:30 83 21 139/93 (108) 93 08/08/19 23:15 83 27 121/105 (110) 94 08/08/19 23:01 80 20 60 08/08/19 23:00 21 121/105 Mechanical Ventilator 65 08/08/19 23:00 82 21 116/81 (93) 94 08/08/19 22:15 84 21 120/81 (94) 94 08/08/19 22:00 20 121/83 Mechanical Ventilator 65 08/08/19 22:00 86 20 121/83 (96) 94 08/08/19 21:45 86 22 129/76 (93) 95 08/08/19 21:30 89 21 123/84 (97) 95 08/08/19 21:15 90 22 119/78 (92) 95 08/08/19 21:00 22 111/78 Mechanical Ventilator 65 08/08/19 21:00 93 21 111/78 (89) 95 08/08/19 20:45 99 20 119/81 (94) 94 08/08/19 20:30 105 22 121/74 (90) 94 08/08/19 20:15 92 23 134/103 (113) 94 08/08/19 20:00 99.0 90 21 158/96 (116) 94 08/08/19 20:00 Mechanical Ventilator Mechanical Ventilator 08/08/19 20:00 22 158/96 Mechanical Ventilator 65 08/08/19 20:00 90 08/08/19 20:00 65 08/08/19 19:45 92 22 146/92 (110) 94 08/08/19 19:30 95 21 134/87 (103) 93 08/08/19 19:16 92 20 60 08/08/19 19:15 20 130/80 Mechanical Ventilator 65 08/08/19 19:00 93 24 130/80 (97) 94 08/08/19 19:00 20 130/80 Mechanical Ventilator 65 08/08/19 18:00 22 128/79 Mechanical Ventilator 65 08/08/19 18:00 90 21 128/79 (95) 91 08/08/19 17:20 95 20 60 08/08/19 17:00 22 143/90 Mechanical Ventilator 60 08/08/19 17:00 93 20 134/85 (101) 91 08/08/19 16:00 99.2 94 20 143/90 (107) 93 08/08/19 16:00 91 08/08/19 16:00 21 143/90 Mechanical Ventilator 60 08/08/19 16:00 60 08/08/19 16:00 Mechanical Ventilator Mechanical Ventilator 08/08/19 15:46 96 25 60 08/08/19 15:30 88 22 121/82 (95) 93 08/08/19 15:00 90 22 125/86 (99) 93 08/08/19 15:00 20 126/86 Mechanical Ventilator 60 08/08/19 14:30 88 22 119/87 (98) 94 08/08/19 14:21 20 120/82 Mechanical Ventilator 60 08/08/19 14:00 87 21 120/82 (95) 95 08/08/19 14:00 22 119/87 Mechanical Ventilator 60 08/08/19 13:30 89 21 122/80 (94) 96 08/08/19 13:06 89 20 60 08/08/19 13:00 20 122/80 Mechanical Ventilator 60 08/08/19 13:00 87 20 125/82 (96) 96 08/08/19 12:30 86 20 119/86 (97) 96 08/08/19 12:00 84 08/08/19 12:00 98.1 88 20 117/83 (94) 95 08/08/19 12:00 20 119/86 Mechanical Ventilator 60 08/08/19 12:00 60 08/08/19 12:00 Mechanical Ventilator Mechanical Ventilator 08/08/19 11:30 86 20 130/87 (101) 96 08/08/19 11:09 89 20 60 Intake and Output 08/08/19 08/09/19 19:00 07:00 Intake Total 850.754 ml 959.626 ml Output Total 715 ml 545 ml Balance 135.754 ml 414.626 ml Intake Free Water 100 ml IV Total 210.754 ml 499.626 ml Tube Feeding 360 ml 360 ml Other 280 ml Output Urine Total 715 ml 545 ml # Bowel Movements 1 Laboratory Tests 08/09/19 05:30: White Blood Count 9.9, Red Blood Count 6.14H, Hemoglobin 16.2, Hematocrit 50.9, Mean Corpuscular Volume 83, Mean Corpuscular Hemoglobin 26.3L, Mean Corpuscular Hemoglobin Concent 31.7L, Red Cell Distribution Width 13.7, Platelet Count 195, Mean Platelet Volume 6.7, Neutrophils (%) (Auto) , Lymphocytes (%) (Auto) , Monocytes (%) (Auto) , Eosinophils (%) (Auto) , Basophils (%) (Auto) , Differential Total Cells Counted 100, Neutrophils % (Manual) 94H, Lymphocytes % (Manual) 1L, Monocytes % (Manual) 5, Eosinophils % (Manual) 0, Basophils % ( Manual) 0, Band Neutrophils 0, Platelet Estimate Adequate, Platelet Morphology Normal, Red Blood Cell Morphology Normal, Sodium Level 137, Potassium Level 4.2 , Chloride Level 95L, Carbon Dioxide Level 34H, Anion Gap 8, Blood Urea Nitrogen 43H, Creatinine 1.9H, Estimat Glomerular Filtration Rate 43.5, Glucose Level 142H, Uric Acid 5.7, Calcium Level 9.0, Phosphorus Level 7.2H, Magnesium Level 2.5H, Total Bilirubin 0.6, Aspartate Amino Transf (AST/SGOT) 18, Alanine Aminotransferase (ALT/SGPT) 16, Alkaline Phosphatase 81, C-Reactive Protein, Quantitative 4.5H, Pro-B-Type Natriuretic Peptide 118, Total Protein 7.9, Albumin 3.3L, Globulin 4.6, Albumin/Globulin Ratio 0.7L 08/09/19 09:00: Arterial Blood pH 7.341L, Arterial Blood Partial Pressure CO2 70.0*H, Arterial Blood Partial Pressure O2 67.7L, Arterial Blood HCO3 37.0H, Arterial Blood Oxygen Saturation 91.7L, Arterial Blood Base Excess 7.9H, [place] Test Positive Height (Feet): 6 Height (Inches): 1.00 Weight (Pounds): 210 General Appearance: no apparent distress EENT: other - Remains intubated and vented Cardiovascular: normal rate Respiratory/Chest: decreased breath sounds Ovi Byrnes MD Aug 09, 2019 11:08
--- NOTE | 2019-08-09 11:24 | Pulmonology Progress Note ---
Assessment/Plan Assessment/Plan IMPRESSION: 1. Decompensated congestive heart failure. 2. COPD with respiratory acidosis. 3. Respiratory failure. 4. Obesity. 5. Acute on chronic respiratory acidosis. DISCUSSION: Off lasix; continue Diamox Added steroids Continue broad-spectrum antibiotics. Propofol for sedation. Keep vent on AC mode. Decrease FiO2 and PEEP as tolerated. I will follow. Mitchell Cassidy M.D. Subjective Interval Events: Remains intubated; HCO3 btter Constitutional: Reports: no symptoms HEENT: Repors: no symptoms Respiratory: Reports: no symptoms Cardiovascular: Reports: no symptoms Allergies: Coded Allergies: No Known Allergies (Unverified , 07/23/16) Objective Last 24 Hour Vital Signs Date Time Temp Pulse Resp B/P (MAP) Pulse Ox O2 Delivery O2 Flow Rate FiO2 08/09/19 11:20 80 25 80 08/09/19 09:15 84 24 80 08/09/19 07:29 79 24 80 08/09/19 07:21 20 141/81 Mechanical Ventilator 80 08/09/19 07:00 79 23 135/85 (102) 90 08/09/19 07:00 22 135/85 Mechanical Ventilator 80 08/09/19 06:30 80 20 08/09/19 06:30 80 25 129/89 (102) 90 08/09/19 06:24 80 08/09/19 06:00 82 26 136/81 (99) 91 08/09/19 06:00 21 136/81 Mechanical Ventilator 65 08/09/19 06:00 65 08/09/19 05:30 84 26 127/89 (102) 92 08/09/19 05:05 80 24 60 08/09/19 05:00 81 23 124/82 (96) 91 08/09/19 05:00 21 135/85 Mechanical Ventilator 65 08/09/19 04:30 84 26 130/85 (100) 91 08/09/19 04:00 Mechanical Ventilator Mechanical Ventilator 08/09/19 04:00 91 08/09/19 04:00 98.4 83 25 132/89 (103) 92 08/09/19 04:00 22 132/89 Mechanical Ventilator 65 08/09/19 03:30 84 25 129/87 (101) 92 08/09/19 03:19 85 22 60 08/09/19 03:00 22 131/87 Mechanical Ventilator 65 08/09/19 03:00 83 22 122/81 (95) 93 08/09/19 02:30 86 22 123/86 (98) 93 08/09/19 02:00 22 126/60 Mechanical Ventilator 65 08/09/19 02:00 89 21 118/81 (93) 94 08/09/19 01:31 21 126/85 Mechanical Ventilator 60.0 65 08/09/19 01:30 91 24 130/85 (100) 89 08/09/19 01:30 22 116/85 Mechanical Ventilator 65 08/09/19 01:00 95 25 136/89 (105) 90 08/09/19 01:00 22 126/85 Mechanical Ventilator 65 08/09/19 00:30 90 32 137/93 (108) 90 08/09/19 00:15 85 21 126/85 (99) 92 08/09/19 00:00 86 08/09/19 00:00 Mechanical Ventilator Mechanical Ventilator 08/09/19 00:00 65 08/09/19 00:00 21 126/85 Mechanical Ventilator 65 08/09/19 00:00 99.0 88 20 129/83 (98) 94 08/08/19 23:45 84 21 125/80 (95) 91 08/08/19 23:30 83 21 139/93 (108) 93 08/08/19 23:15 83 27 121/105 (110) 94 08/08/19 23:01 80 20 60 08/08/19 23:00 21 121/105 Mechanical Ventilator 65 08/08/19 23:00 82 21 116/81 (93) 94 08/08/19 22:15 84 21 120/81 (94) 94 08/08/19 22:00 20 121/83 Mechanical Ventilator 65 08/08/19 22:00 86 20 121/83 (96) 94 08/08/19 21:45 86 22 129/76 (93) 95 08/08/19 21:30 89 21 123/84 (97) 95 08/08/19 21:15 90 22 119/78 (92) 95 08/08/19 21:00 22 111/78 Mechanical Ventilator 65 08/08/19 21:00 93 21 111/78 (89) 95 08/08/19 20:45 99 20 119/81 (94) 94 08/08/19 20:30 105 22 121/74 (90) 94 08/08/19 20:15 92 23 134/103 (113) 94 08/08/19 20:00 99.0 90 21 158/96 (116) 94 08/08/19 20:00 Mechanical Ventilator Mechanical Ventilator 08/08/19 20:00 22 158/96 Mechanical Ventilator 65 08/08/19 20:00 90 08/08/19 20:00 65 08/08/19 19:45 92 22 146/92 (110) 94 08/08/19 19:30 95 21 134/87 (103) 93 08/08/19 19:16 92 20 60 08/08/19 19:15 20 130/80 Mechanical Ventilator 65 08/08/19 19:00 93 24 130/80 (97) 94 08/08/19 19:00 20 130/80 Mechanical Ventilator 65 08/08/19 18:00 22 128/79 Mechanical Ventilator 65 08/08/19 18:00 90 21 128/79 (95) 91 08/08/19 17:20 95 20 60 08/08/19 17:00 22 143/90 Mechanical Ventilator 60 08/08/19 17:00 93 20 134/85 (101) 91 08/08/19 16:00 99.2 94 20 143/90 (107) 93 08/08/19 16:00 91 08/08/19 16:00 21 143/90 Mechanical Ventilator 60 08/08/19 16:00 60 08/08/19 16:00 Mechanical Ventilator Mechanical Ventilator 08/08/19 15:46 96 25 60 08/08/19 15:30 88 22 121/82 (95) 93 08/08/19 15:00 90 22 125/86 (99) 93 08/08/19 15:00 20 126/86 Mechanical Ventilator 60 08/08/19 14:30 88 22 119/87 (98) 94 08/08/19 14:21 20 120/82 Mechanical Ventilator 60 08/08/19 14:00 87 21 120/82 (95) 95 08/08/19 14:00 22 119/87 Mechanical Ventilator 60 4/10/20 13:30 89 21 122/80 (94) 96 08/08/19 13:06 89 20 60 08/08/19 13:00 20 122/80 Mechanical Ventilator 60 08/08/19 13:00 87 20 125/82 (96) 96 08/08/19 12:30 86 20 119/86 (97) 96 08/08/19 12:00 84 08/08/19 12:00 98.1 88 20 117/83 (94) 95 08/08/19 12:00 20 119/86 Mechanical Ventilator 60 08/08/19 12:00 60 08/08/19 12:00 Mechanical Ventilator Mechanical Ventilator 08/08/19 11:30 86 20 130/87 (101) 96 Intake and Output 08/08/19 08/09/19 19:00 07:00 Intake Total 850.754 ml 959.626 ml Output Total 715 ml 545 ml Balance 135.754 ml 414.626 ml Intake Free Water 100 ml IV Total 210.754 ml 499.626 ml Tube Feeding 360 ml 360 ml Other 280 ml Output Urine Total 715 ml 545 ml # Bowel Movements 1 General Appearance: no acute distress HEENT: normocephalic Respiratory/Chest: chest wall non-tender, normal breath sounds Cardiovascular: normal peripheral pulses Abdomen: normal bowel sounds Laboratory Tests 08/09/19 05:30: White Blood Count 9.9, Red Blood Count 6.14H, Hemoglobin 16.2, Hematocrit 50.9, Mean Corpuscular Volume 83, Mean Corpuscular Hemoglobin 26.3L, Mean Corpuscular Hemoglobin Concent 31.7L, Red Cell Distribution Width 13.7, Platelet Count 195, Mean Platelet Volume 6.7, Neutrophils (%) (Auto) , Lymphocytes (%) (Auto) , Monocytes (%) (Auto) , Eosinophils (%) (Auto) , Basophils (%) (Auto) , Differential Total Cells Counted 100, Neutrophils % (Manual) 94H, Lymphocytes % (Manual) 1L, Monocytes % (Manual) 5, Eosinophils % (Manual) 0, Basophils % ( Manual) 0, Band Neutrophils 0, Platelet Estimate Adequate, Platelet Morphology Normal, Red Blood Cell Morphology Normal, Sodium Level 137, Potassium Level 4.2 , Chloride Level 95L, Carbon Dioxide Level 34H, Anion Gap 8, Blood Urea Nitrogen 43H, Creatinine 1.9H, Estimat Glomerular Filtration Rate 43.5, Glucose Level 142H, Uric Acid 5.7, Calcium Level 9.0, Phosphorus Level 7.2H, Magnesium Level 2.5H, Total Bilirubin 0.6, Aspartate Amino Transf (AST/SGOT) 18, Alanine Aminotransferase (ALT/SGPT) 16, Alkaline Phosphatase 81, C-Reactive Protein, Quantitative 4.5H, Pro-B-Type Natriuretic Peptide 118, Total Protein 7.9, Albumin 3.3L, Globulin 4.6, Albumin/Globulin Ratio 0.7L 08/09/19 09:00: Arterial Blood pH 7.341L, Arterial Blood Partial Pressure CO2 70.0*H, Arterial Blood Partial Pressure O2 67.7L, Arterial Blood HCO3 37.0H, Arterial Blood Oxygen Saturation 91.7L, Arterial Blood Base Excess 7.9H, [place] Test Positive Current Medications Medications (Trade) Dose Ordered Sig/Judy Route PRN Reason Start Time Stop Time Status Last Admin Dose Admin Acetazolamide (Diamox) 125 mg TWICE A DAY NG 08/09/19 18:00 09/07/19 11:59 Azithromycin 500 mg/Dextrose 275 ml @ 275 mls/hr Q24HRS IV 08/06/19 21:00 08/12/19 21:59 08/08/19 20:17 Ceftriaxone Sodium 1 gm/ Dextrose 55 ml @ 110 mls/hr Q24H IVPB 08/06/19 20:00 08/13/19 19:59 08/08/19 20:09 Chlorhexidine Gluconate (Jessenia-Hex 2%) 1 applic DAILY@2000 TOPIC 08/06/19 20:00 11/04/19 19:59 08/08/19 20:08 Clonidine HCl (Catapres Tab) 0.1 mg Q4H PRN GT SBP>170 08/09/19 11:15 11/05/19 12:59 Dextrose (Dextrose 50%) 25 ml Q30M PRN IV Hypoglycemia 08/06/19 10:30 11/04/19 10:29 Dextrose (Dextrose 50%) 50 ml Q30M PRN IV Hypoglycemia 08/06/19 10:30 11/04/19 10:29 Enoxaparin Sodium (Lovenox) 40 mg Q24HRS@0900 SUBQ 08/06/19 11:00 11/04/19 10:59 08/09/19 10:06 Hydralazine HCl (Apresoline) 10 mg Q2H PRN IV SBP>170 08/07/19 13:00 11/05/19 12:59 Methylprednisolone Sodium Succinate (Solu-MEDROL) 40 mg EVERY 12 HOURS IVP 08/08/19 11:20 11/06/19 11:19 08/09/19 10:05 Pantoprazole (Protonix) 40 mg EVERY 12 HOURS IVP 08/06/19 10:00 09/05/19 09:59 08/09/19 10:05 Potassium Chloride (K-Dur) 40 meq DAILY NG 08/10/19 09:00 11/05/19 08:59 Propofol 100 ml @ 0 mls/hr Q24H IV 08/08/19 06:45 08/10/19 06:44 08/09/19 07:21 Mitchell Cassidy MD Aug 09, 2019 11:24
--- NOTE | 2019-08-09 12:55 | Infectious Diseases Prog Note ---
Assessment/Plan Assessment/Plan antibiotics : ceftriaxone, azithromycin A 1. pneumonia covid 19 negative 2. respiratory failure 3. COPD 4. CHF 5. hypertension 6. sleep apnea P 1. continue ceftriaxone, azithromycin 2. sputum culture 3. repeat COVID 19 test 4. will follow up cultures Subjective ROS Limited/Unobtainable: Yes Allergies: Coded Allergies: No Known Allergies (Unverified , 07/23/16) Objective Vital Signs Last 24 Hour Vital Signs Date Time Temp Pulse Resp B/P (MAP) Pulse Ox O2 Delivery O2 Flow Rate FiO2 08/09/19 11:30 79 24 136/92 (107) 90 08/09/19 11:20 80 25 80 08/09/19 11:00 24 130/91 Mechanical Ventilator 80 08/09/19 11:00 81 23 110/94 (99) 90 08/09/19 10:30 85 25 137/94 (108) 90 08/09/19 10:00 87 23 150/98 (115) 89 08/09/19 10:00 25 154/88 Mechanical Ventilator 80 08/09/19 09:30 84 23 158/106 (123) 91 08/09/19 09:15 84 24 80 08/09/19 09:00 90 22 172/110 (130) 93 08/09/19 09:00 24 159/103 Mechanical Ventilator 80 08/09/19 08:30 84 23 163/105 (124) 93 08/09/19 08:00 Mechanical Ventilator Mechanical Ventilator 08/09/19 08:00 24 164/94 Mechanical Ventilator 80 08/09/19 08:00 98.1 79 23 164/94 (117) 91 08/09/19 07:29 79 24 80 08/09/19 07:21 20 141/81 Mechanical Ventilator 80 08/09/19 07:00 79 23 135/85 (102) 90 08/09/19 07:00 22 135/85 Mechanical Ventilator 80 08/09/19 06:30 80 20 08/09/19 06:30 80 25 129/89 (102) 90 08/09/19 06:24 80 08/09/19 06:00 82 26 136/81 (99) 91 08/09/19 06:00 21 136/81 Mechanical Ventilator 65 08/09/19 06:00 65 08/09/19 05:30 84 26 127/89 (102) 92 08/09/19 05:05 80 24 60 08/09/19 05:00 81 23 124/82 (96) 91 08/09/19 05:00 21 135/85 Mechanical Ventilator 65 08/09/19 04:30 84 26 130/85 (100) 91 08/09/19 04:00 Mechanical Ventilator Mechanical Ventilator 08/09/19 04:00 91 08/09/19 04:00 98.4 83 25 132/89 (103) 92 08/09/19 04:00 22 132/89 Mechanical Ventilator 65 08/09/19 03:30 84 25 129/87 (101) 92 08/09/19 03:19 85 22 60 08/09/19 03:00 22 131/87 Mechanical Ventilator 65 08/09/19 03:00 83 22 122/81 (95) 93 08/09/19 02:30 86 22 123/86 (98) 93 08/09/19 02:00 22 126/60 Mechanical Ventilator 65 08/09/19 02:00 89 21 118/81 (93) 94 08/09/19 01:31 21 126/85 Mechanical Ventilator 60.0 65 08/09/19 01:30 91 24 130/85 (100) 89 08/09/19 01:30 22 116/85 Mechanical Ventilator 65 08/09/19 01:00 95 25 136/89 (105) 90 08/09/19 01:00 22 126/85 Mechanical Ventilator 65 08/09/19 00:30 90 32 137/93 (108) 90 08/09/19 00:15 85 21 126/85 (99) 92 08/09/19 00:00 86 08/09/19 00:00 Mechanical Ventilator Mechanical Ventilator 08/09/19 00:00 65 08/09/19 00:00 21 126/85 Mechanical Ventilator 65 08/09/19 00:00 99.0 88 20 129/83 (98) 94 08/08/19 23:45 84 21 125/80 (95) 91 08/08/19 23:30 83 21 139/93 (108) 93 08/08/19 23:15 83 27 121/105 (110) 94 08/08/19 23:01 80 20 60 08/08/19 23:00 21 121/105 Mechanical Ventilator 65 08/08/19 23:00 82 21 116/81 (93) 94 08/08/19 22:15 84 21 120/81 (94) 94 08/08/19 22:00 20 121/83 Mechanical Ventilator 65 08/08/19 22:00 86 20 121/83 (96) 94 08/08/19 21:45 86 22 129/76 (93) 95 08/08/19 21:30 89 21 123/84 (97) 95 08/08/19 21:15 90 22 119/78 (92) 95 08/08/19 21:00 22 111/78 Mechanical Ventilator 65 08/08/19 21:00 93 21 111/78 (89) 95 08/08/19 20:45 99 20 119/81 (94) 94 08/08/19 20:30 105 22 121/74 (90) 94 08/08/19 20:15 92 23 134/103 (113) 94 08/08/19 20:00 99.0 90 21 158/96 (116) 94 08/08/19 20:00 Mechanical Ventilator Mechanical Ventilator 08/08/19 20:00 22 158/96 Mechanical Ventilator 65 08/08/19 20:00 90 08/08/19 20:00 65 08/08/19 19:45 92 22 146/92 (110) 94 08/08/19 19:30 95 21 134/87 (103) 93 08/08/19 19:16 92 20 60 08/08/19 19:15 20 130/80 Mechanical Ventilator 65 08/08/19 19:00 93 24 130/80 (97) 94 08/08/19 19:00 20 130/80 Mechanical Ventilator 65 08/08/19 18:00 22 128/79 Mechanical Ventilator 65 08/08/19 18:00 90 21 128/79 (95) 91 08/08/19 17:20 95 20 60 08/08/19 17:00 22 143/90 Mechanical Ventilator 60 08/08/19 17:00 93 20 134/85 (101) 91 08/08/19 16:00 99.2 94 20 143/90 (107) 93 08/08/19 16:00 91 08/08/19 16:00 21 143/90 Mechanical Ventilator 60 08/08/19 16:00 60 08/08/19 16:00 Mechanical Ventilator Mechanical Ventilator 08/08/19 15:46 96 25 60 08/08/19 15:30 88 22 121/82 (95) 93 08/08/19 15:00 90 22 125/86 (99) 93 08/08/19 15:00 20 126/86 Mechanical Ventilator 60 08/08/19 14:30 88 22 119/87 (98) 94 08/08/19 14:21 20 120/82 Mechanical Ventilator 60 08/08/19 14:00 87 21 120/82 (95) 95 08/08/19 14:00 22 119/87 Mechanical Ventilator 60 08/08/19 13:30 89 21 122/80 (94) 96 08/08/19 13:06 89 20 60 08/08/19 13:00 20 122/80 Mechanical Ventilator 60 08/08/19 13:00 87 20 125/82 (96) 96 Height (Feet): 6 Height (Inches): 1.00 Weight (Pounds): 210 HEENT: other - intubated Respiratory/Chest: lungs clear Cardiovascular: normal rate, regular rhythm, no gallop/murmur Abdomen: soft, non tender Extremities: no edema Laboratory Tests Test 08/09/19 05:30 08/09/19 09:00 White Blood Count 9.9 K/UL (4.8-10.8) Red Blood Count 6.14 M/UL (4.70-6.10) H Hemoglobin 16.2 G/DL (14.2-18.0) Hematocrit 50.9 % (42.0-52.0) Mean Corpuscular Volume 83 FL (80-99) Mean Corpuscular Hemoglobin 26.3 PG (27.0-31.0) L Mean Corpuscular Hemoglobin Concent 31.7 G/DL (32.0-36.0) L Red Cell Distribution Width 13.7 % (11.6-14.8) Platelet Count 195 K/UL (150-450) Mean Platelet Volume 6.7 FL (6.5-10.1) Neutrophils (%) (Auto) % (45.0-75.0) Lymphocytes (%) (Auto) % (20.0-45.0) Monocytes (%) (Auto) % (1.0-10.0) Eosinophils (%) (Auto) % (0.0-3.0) Basophils (%) (Auto) % (0.0-2.0) Differential Total Cells Counted 100 Neutrophils % (Manual) 94 % (45-75) H Lymphocytes % (Manual) 1 % (20-45) L Monocytes % (Manual) 5 % (1-10) Eosinophils % (Manual) 0 % (0-3) Basophils % (Manual) 0 % (0-2) Band Neutrophils 0 % (0-8) Platelet Estimate Adequate Platelet Morphology Normal Red Blood Cell Morphology Normal Sodium Level 137 MMOL/L (136-145) Potassium Level 4.2 MMOL/L (3.5-5.1) Chloride Level 95 MMOL/L (98-107) L Carbon Dioxide Level 34 MMOL/L (21-32) H Anion Gap 8 mmol/L (5-15) Blood Urea Nitrogen 43 mg/dL (7-18) H Creatinine 1.9 MG/DL (0.55-1.30) H Estimat Glomerular Filtration Rate 43.5 mL/min (>60) Glucose Level 142 MG/DL (74-106) H Uric Acid 5.7 MG/DL (2.6-7.2) Calcium Level 9.0 MG/DL (8.5-10.1) Phosphorus Level 7.2 MG/DL (2.5-4.9) H Magnesium Level 2.5 MG/DL (1.8-2.4) H Total Bilirubin 0.6 MG/DL (0.2-1.0) Aspartate Amino Transf (AST/SGOT) 18 U/L (15-37) Alanine Aminotransferase (ALT/SGPT) 16 U/L (12-78) Alkaline Phosphatase 81 U/L (46-116) C-Reactive Protein, Quantitative 4.5 mg/dL (0.00-0.90) H Pro-B-Type Natriuretic Peptide 118 pg/mL (0-125) Total Protein 7.9 G/DL (6.4-8.2) Albumin 3.3 G/DL (3.4-5.0) L Globulin 4.6 g/dL Albumin/Globulin Ratio 0.7 (1.0-2.7) L Arterial Blood pH 7.341 (7.350-7.450) Arterial Blood Partial Pressure CO2 70.0 mmHg (35.0-45.0) *H Arterial Blood Partial Pressure O2 67.7 mmHg (75.0-100.0) L Arterial Blood HCO3 37.0 mmol/L (22.0-26.0) H Arterial Blood Oxygen Saturation 91.7 % (95-100) L Arterial Blood Base Excess 7.9 (-2-2) H [place] Test Positive Current Medications Medications (Trade) Dose Ordered Sig/Judy Route PRN Reason Start Time Stop Time Status Last Admin Dose Admin Acetazolamide (Diamox) 125 mg TWICE A DAY NG 08/09/19 18:00 09/07/19 11:59 Azithromycin 500 mg/Dextrose 275 ml @ 275 mls/hr Q24HRS IV 08/06/19 21:00 08/12/19 21:59 08/08/19 20:17 Ceftriaxone Sodium 1 gm/ Dextrose 55 ml @ 110 mls/hr Q24H IVPB 08/06/19 20:00 08/13/19 19:59 08/08/19 20:09 Chlorhexidine Gluconate (Jessenia-Hex 2%) 1 applic DAILY@2000 TOPIC 08/06/19 20:00 11/04/19 19:59 08/08/19 20:08 Clonidine HCl (Catapres Tab) 0.1 mg Q4H PRN GT SBP>170 08/09/19 11:15 11/05/19 12:59 Dextrose (Dextrose 50%) 25 ml Q30M PRN IV Hypoglycemia 08/06/19 10:30 11/04/19 10:29 Dextrose (Dextrose 50%) 50 ml Q30M PRN IV Hypoglycemia 08/06/19 10:30 11/04/19 10:29 Enoxaparin Sodium (Lovenox) 40 mg Q24HRS@0900 SUBQ 08/06/19 11:00 11/04/19 10:59 08/09/19 10:06 Hydralazine HCl (Apresoline) 10 mg Q2H PRN IV SBP>170 08/07/19 13:00 11/05/19 12:59 Methylprednisolone Sodium Succinate (Solu-MEDROL) 40 mg EVERY 12 HOURS IVP 08/08/19 11:20 11/06/19 11:19 08/09/19 10:05 Pantoprazole (Protonix) 40 mg EVERY 12 HOURS IVP 08/06/19 10:00 09/05/19 09:59 08/09/19 10:05 Potassium Chloride (K-Dur) 40 meq DAILY NG 08/10/19 09:00 11/05/19 08:59 Propofol 100 ml @ 0 mls/hr Q24H IV 08/08/19 06:45 08/10/19 06:44 08/09/19 07:21 Miah Rivas MD Aug 09, 2019 12:55
--- NOTE | 2019-08-09 17:37 | Cardiac Electrophysiology PN ---
Assessment/Plan Assessment/Plan 1. Respiratory failure, intubated on the vent due to combination of CHF and COPD. His BNP is more than 5000. Echocardiogram is pending. Lasix drip DCed as renal failure getting worse Ruled out for [place] 2. PNA Copvid is negative, under management of Dr. Cassidy on ceftriaxone and azithromycin. 3. ARF. 4. COPD. DW RN Subjective Subjective In ICU on the vent confused in restraints. Covid test negative . ECHO pending. On Diamox and Propofol. On 80% Fio2 on the Vent Objective Last 24 Hour Vital Signs Date Time Temp Pulse Resp B/P (MAP) Pulse Ox O2 Delivery O2 Flow Rate FiO2 08/09/19 17:17 82 21 80 08/09/19 17:00 22 142/88 Mechanical Ventilator 80 08/09/19 17:00 81 24 132/86 (101) 88 08/09/19 16:30 81 21 142/88 (106) 88 08/09/19 16:00 80 08/09/19 16:00 Mechanical Ventilator Mechanical Ventilator 08/09/19 16:00 24 151/93 Mechanical Ventilator 80 08/09/19 16:00 98.7 80 24 143/88 (106) 89 08/09/19 15:30 81 24 132/86 (101) 88 08/09/19 15:25 81 23 80 08/09/19 15:22 82 08/09/19 15:15 24 125/84 Mechanical Ventilator 80 08/09/19 15:00 80 24 125/84 (98) 89 08/09/19 14:30 80 24 128/78 (95) 88 08/09/19 14:00 77 23 126/81 (96) 89 08/09/19 14:00 23 128/86 Mechanical Ventilator 80 08/09/19 13:30 78 24 125/82 (96) 90 08/09/19 13:28 78 25 80 08/09/19 13:00 24 124/84 Mechanical Ventilator 80 08/09/19 13:00 79 26 125/83 (97) 89 08/09/19 12:30 78 26 126/84 (98) 90 08/09/19 12:00 98.2 76 23 138/89 (105) 91 08/09/19 12:00 25 126/81 Mechanical Ventilator 80 08/09/19 12:00 76 08/09/19 12:00 Mechanical Ventilator Mechanical Ventilator 08/09/19 12:00 80 08/09/19 11:30 79 24 136/92 (107) 90 08/09/19 11:20 80 25 80 08/09/19 11:00 24 130/91 Mechanical Ventilator 80 08/09/19 11:00 81 23 110/94 (99) 90 08/09/19 10:30 85 25 137/94 (108) 90 08/09/19 10:00 87 23 150/98 (115) 89 08/09/19 10:00 25 154/88 Mechanical Ventilator 80 08/09/19 09:30 84 23 158/106 (123) 91 08/09/19 09:15 84 24 80 08/09/19 09:00 90 22 172/110 (130) 93 08/09/19 09:00 24 159/103 Mechanical Ventilator 80 08/09/19 08:30 84 23 163/105 (124) 93 08/09/19 08:00 Mechanical Ventilator Mechanical Ventilator 08/09/19 08:00 80 08/09/19 08:00 24 164/94 Mechanical Ventilator 80 08/09/19 08:00 98.1 79 23 164/94 (117) 91 08/09/19 08:00 82 08/09/19 07:29 79 24 80 08/09/19 07:21 20 141/81 Mechanical Ventilator 80 08/09/19 07:00 79 23 135/85 (102) 90 08/09/19 07:00 22 135/85 Mechanical Ventilator 80 08/09/19 06:30 80 20 08/09/19 06:30 80 25 129/89 (102) 90 08/09/19 06:24 80 08/09/19 06:00 82 26 136/81 (99) 91 08/09/19 06:00 21 136/81 Mechanical Ventilator 65 08/09/19 06:00 65 08/09/19 05:30 84 26 127/89 (102) 92 08/09/19 05:05 80 24 60 08/09/19 05:00 81 23 124/82 (96) 91 08/09/19 05:00 21 135/85 Mechanical Ventilator 65 08/09/19 04:30 84 26 130/85 (100) 91 08/09/19 04:00 Mechanical Ventilator Mechanical Ventilator 08/09/19 04:00 91 08/09/19 04:00 98.4 83 25 132/89 (103) 92 08/09/19 04:00 22 132/89 Mechanical Ventilator 65 08/09/19 03:30 84 25 129/87 (101) 92 08/09/19 03:19 85 22 60 08/09/19 03:00 22 131/87 Mechanical Ventilator 65 08/09/19 03:00 83 22 122/81 (95) 93 08/09/19 02:30 86 22 123/86 (98) 93 08/09/19 02:00 22 126/60 Mechanical Ventilator 65 08/09/19 02:00 89 21 118/81 (93) 94 08/09/19 01:31 21 126/85 Mechanical Ventilator 60.0 65 08/09/19 01:30 91 24 130/85 (100) 89 08/09/19 01:30 22 116/85 Mechanical Ventilator 65 08/09/19 01:00 95 25 136/89 (105) 90 08/09/19 01:00 22 126/85 Mechanical Ventilator 65 08/09/19 00:30 90 32 137/93 (108) 90 08/09/19 00:15 85 21 126/85 (99) 92 08/09/19 00:00 86 08/09/19 00:00 Mechanical Ventilator Mechanical Ventilator 08/09/19 00:00 65 08/09/19 00:00 21 126/85 Mechanical Ventilator 65 08/09/19 00:00 99.0 88 20 129/83 (98) 94 08/08/19 23:45 84 21 125/80 (95) 91 08/08/19 23:30 83 21 139/93 (108) 93 08/08/19 23:15 83 27 121/105 (110) 94 08/08/19 23:01 80 20 60 08/08/19 23:00 21 121/105 Mechanical Ventilator 65 08/08/19 23:00 82 21 116/81 (93) 94 08/08/19 22:15 84 21 120/81 (94) 94 08/08/19 22:00 20 121/83 Mechanical Ventilator 65 08/08/19 22:00 86 20 121/83 (96) 94 08/08/19 21:45 86 22 129/76 (93) 95 08/08/19 21:30 89 21 123/84 (97) 95 08/08/19 21:15 90 22 119/78 (92) 95 08/08/19 21:00 22 111/78 Mechanical Ventilator 65 08/08/19 21:00 93 21 111/78 (89) 95 08/08/19 20:45 99 20 119/81 (94) 94 08/08/19 20:30 105 22 121/74 (90) 94 08/08/19 20:15 92 23 134/103 (113) 94 08/08/19 20:00 99.0 90 21 158/96 (116) 94 08/08/19 20:00 Mechanical Ventilator Mechanical Ventilator 08/08/19 20:00 22 158/96 Mechanical Ventilator 65 08/08/19 20:00 90 08/08/19 20:00 65 08/08/19 19:45 92 22 146/92 (110) 94 08/08/19 19:30 95 21 134/87 (103) 93 08/08/19 19:16 92 20 60 08/08/19 19:15 20 130/80 Mechanical Ventilator 65 08/08/19 19:00 93 24 130/80 (97) 94 08/08/19 19:00 20 130/80 Mechanical Ventilator 65 08/08/19 18:00 22 128/79 Mechanical Ventilator 65 08/08/19 18:00 90 21 128/79 (95) 91 Intake and Output 08/08/19 08/09/19 19:00 07:00 Intake Total 850.754 ml 959.626 ml Output Total 715 ml 545 ml Balance 135.754 ml 414.626 ml Intake Free Water 100 ml IV Total 210.754 ml 499.626 ml Tube Feeding 360 ml 360 ml Other 280 ml Output Urine Total 715 ml 545 ml # Bowel Movements 1 Laboratory Tests Test 08/09/19 05:30 08/09/19 09:00 White Blood Count 9.9 K/UL (4.8-10.8) Red Blood Count 6.14 M/UL (4.70-6.10) H Hemoglobin 16.2 G/DL (14.2-18.0) Hematocrit 50.9 % (42.0-52.0) Mean Corpuscular Volume 83 FL (80-99) Mean Corpuscular Hemoglobin 26.3 PG (27.0-31.0) L Mean Corpuscular Hemoglobin Concent 31.7 G/DL (32.0-36.0) L Red Cell Distribution Width 13.7 % (11.6-14.8) Platelet Count 195 K/UL (150-450) Mean Platelet Volume 6.7 FL (6.5-10.1) Neutrophils (%) (Auto) % (45.0-75.0) Lymphocytes (%) (Auto) % (20.0-45.0) Monocytes (%) (Auto) % (1.0-10.0) Eosinophils (%) (Auto) % (0.0-3.0) Basophils (%) (Auto) % (0.0-2.0) Differential Total Cells Counted 100 Neutrophils % (Manual) 94 % (45-75) H Lymphocytes % (Manual) 1 % (20-45) L Monocytes % (Manual) 5 % (1-10) Eosinophils % (Manual) 0 % (0-3) Basophils % (Manual) 0 % (0-2) Band Neutrophils 0 % (0-8) Platelet Estimate Adequate Platelet Morphology Normal Red Blood Cell Morphology Normal Sodium Level 137 MMOL/L (136-145) Potassium Level 4.2 MMOL/L (3.5-5.1) Chloride Level 95 MMOL/L (98-107) L Carbon Dioxide Level 34 MMOL/L (21-32) H Anion Gap 8 mmol/L (5-15) Blood Urea Nitrogen 43 mg/dL (7-18) H Creatinine 1.9 MG/DL (0.55-1.30) H Estimat Glomerular Filtration Rate 43.5 mL/min (>60) Glucose Level 142 MG/DL (74-106) H Uric Acid 5.7 MG/DL (2.6-7.2) Calcium Level 9.0 MG/DL (8.5-10.1) Phosphorus Level 7.2 MG/DL (2.5-4.9) H Magnesium Level 2.5 MG/DL (1.8-2.4) H Total Bilirubin 0.6 MG/DL (0.2-1.0) Aspartate Amino Transf (AST/SGOT) 18 U/L (15-37) Alanine Aminotransferase (ALT/SGPT) 16 U/L (12-78) Alkaline Phosphatase 81 U/L (46-116) C-Reactive Protein, Quantitative 4.5 mg/dL (0.00-0.90) H Pro-B-Type Natriuretic Peptide 118 pg/mL (0-125) Total Protein 7.9 G/DL (6.4-8.2) Albumin 3.3 G/DL (3.4-5.0) L Globulin 4.6 g/dL Albumin/Globulin Ratio 0.7 (1.0-2.7) L Arterial Blood pH 7.341 (7.350-7.450) Arterial Blood Partial Pressure CO2 70.0 mmHg (35.0-45.0) *H Arterial Blood Partial Pressure O2 67.7 mmHg (75.0-100.0) L Arterial Blood HCO3 37.0 mmol/L (22.0-26.0) H Arterial Blood Oxygen Saturation 91.7 % (95-100) L Arterial Blood Base Excess 7.9 (-2-2) H [place] Test Positive Objective HEAD AND NECK: No JVD. Orally intubated LUNGS: Coarse rhonchi bilaterally. CARDIOVASCULAR: Shows regular S1 and S2 with no gallop or murmur. ABDOMEN: Soft. EXTREMITIES: He has 1+ pitting edema. Livan Parker MD Aug 09, 2019 17:37
[2019-08-09] MEDS: Dyna-Hex 2% Top Sol 2oz TOPIC SCH (20:15)
[2019-08-09] MEDS: cefTRIAXone 1 GM in D5W 55 ML IVPB SCH (20:16)
[2019-08-09] MEDS ORDERED: Tubing IV Secondary IV ONE (21:09)
[2019-08-09] MEDS ORDERED: NS 275ml ONE (21:09)
[2019-08-09] MEDS ORDERED: D5W 275ml ONE (21:09)
[2019-08-09] MEDS: Azithromycin 500 MG in D5W 275 ML IV SCH (21:29)
--- NOTE | 2019-08-09 23:17 | General Progress Note ---
Assessment/Plan Problem List: (1) Respiratory failure ICD Codes: J96.90 - Respiratory failure, unspecified, unspecified whether with hypoxia or hypercapnia SNOMED: 118309962 (2) CHF exacerbation ICD Codes: I50.9 - Heart failure, unspecified SNOMED: 514718866, 26477540928659 (3) COPD exacerbation ICD Codes: J44.1 - Chronic obstructive pulmonary disease with (acute) exacerbation SNOMED: 491071888 (4) Acute respiratory failure ICD Codes: J96.00 - Acute respiratory failure, unspecified whether with hypoxia or hypercapnia SNOMED: 35398086 (5) ATN (acute tubular necrosis) ICD Codes: N17.0 - Acute kidney failure with tubular necrosis SNOMED: 08805383 (6) Nephrotic syndrome ICD Codes: N04.9 - Nephrotic syndrome with unspecified morphologic changes SNOMED: 68858374 Status: unchanged Assessment/Plan: resp failure pna needs close fluid monitering no change chf exac as well as pna not improving poor prognosis Subjective ROS Limited/Unobtainable: Yes Allergies: Coded Allergies: No Known Allergies (Unverified , 07/23/16) Objective Last 24 Hour Vital Signs Date Time Temp Pulse Resp B/P (MAP) Pulse Ox O2 Delivery O2 Flow Rate FiO2 08/09/19 22:53 87 22 80 08/09/19 19:22 83 24 80 08/09/19 19:00 84 24 140/92 (108) 89 08/09/19 19:00 24 131/93 Mechanical Ventilator 80 08/09/19 18:30 85 19 147/109 (122) 91 08/09/19 18:00 79 22 140/92 (108) 89 08/09/19 18:00 23 133/89 Mechanical Ventilator 80 08/09/19 17:30 81 22 133/89 (104) 89 08/09/19 17:17 82 21 80 08/09/19 17:00 22 142/88 Mechanical Ventilator 80 08/09/19 17:00 81 24 132/86 (101) 88 08/09/19 16:30 81 21 142/88 (106) 88 08/09/19 16:00 80 08/09/19 16:00 Mechanical Ventilator Mechanical Ventilator 08/09/19 16:00 24 151/93 Mechanical Ventilator 80 08/09/19 16:00 98.7 80 24 143/88 (106) 89 08/09/19 15:30 81 24 132/86 (101) 88 08/09/19 15:25 81 23 80 08/09/19 15:22 82 08/09/19 15:15 24 125/84 Mechanical Ventilator 80 08/09/19 15:00 80 24 125/84 (98) 89 08/09/19 14:30 80 24 128/78 (95) 88 08/09/19 14:00 77 23 126/81 (96) 89 08/09/19 14:00 23 128/86 Mechanical Ventilator 80 08/09/19 13:30 78 24 125/82 (96) 90 08/09/19 13:28 78 25 80 08/09/19 13:00 24 124/84 Mechanical Ventilator 80 08/09/19 13:00 79 26 125/83 (97) 89 08/09/19 12:30 78 26 126/84 (98) 90 08/09/19 12:00 98.2 76 23 138/89 (105) 91 08/09/19 12:00 25 126/81 Mechanical Ventilator 80 08/09/19 12:00 76 08/09/19 12:00 Mechanical Ventilator Mechanical Ventilator 08/09/19 12:00 80 08/09/19 11:30 79 24 136/92 (107) 90 08/09/19 11:20 80 25 80 08/09/19 11:00 24 130/91 Mechanical Ventilator 80 08/09/19 11:00 81 23 110/94 (99) 90 08/09/19 10:30 85 25 137/94 (108) 90 08/09/19 10:00 87 23 150/98 (115) 89 08/09/19 10:00 25 154/88 Mechanical Ventilator 80 08/09/19 09:30 84 23 158/106 (123) 91 08/09/19 09:15 84 24 80 08/09/19 09:00 90 22 172/110 (130) 93 08/09/19 09:00 24 159/103 Mechanical Ventilator 80 08/09/19 08:30 84 23 163/105 (124) 93 08/09/19 08:00 Mechanical Ventilator Mechanical Ventilator 08/09/19 08:00 80 08/09/19 08:00 24 164/94 Mechanical Ventilator 80 08/09/19 08:00 98.1 79 23 164/94 (117) 91 08/09/19 08:00 82 08/09/19 07:29 79 24 80 08/09/19 07:21 20 141/81 Mechanical Ventilator 80 08/09/19 07:00 79 23 135/85 (102) 90 08/09/19 07:00 22 135/85 Mechanical Ventilator 80 08/09/19 06:30 80 20 08/09/19 06:30 80 25 129/89 (102) 90 08/09/19 06:24 80 08/09/19 06:00 82 26 136/81 (99) 91 08/09/19 06:00 21 136/81 Mechanical Ventilator 65 08/09/19 06:00 65 08/09/19 05:30 84 26 127/89 (102) 92 08/09/19 05:05 80 24 60 08/09/19 05:00 81 23 124/82 (96) 91 08/09/19 05:00 21 135/85 Mechanical Ventilator 65 08/09/19 04:30 84 26 130/85 (100) 91 08/09/19 04:00 Mechanical Ventilator Mechanical Ventilator 08/09/19 04:00 91 08/09/19 04:00 98.4 83 25 132/89 (103) 92 08/09/19 04:00 22 132/89 Mechanical Ventilator 65 08/09/19 03:30 84 25 129/87 (101) 92 08/09/19 03:19 85 22 60 08/09/19 03:00 22 131/87 Mechanical Ventilator 65 08/09/19 03:00 83 22 122/81 (95) 93 08/09/19 02:30 86 22 123/86 (98) 93 08/09/19 02:00 22 126/60 Mechanical Ventilator 65 08/09/19 02:00 89 21 118/81 (93) 94 08/09/19 01:31 21 126/85 Mechanical Ventilator 60.0 65 08/09/19 01:30 91 24 130/85 (100) 89 08/09/19 01:30 22 116/85 Mechanical Ventilator 65 08/09/19 01:00 95 25 136/89 (105) 90 08/09/19 01:00 22 126/85 Mechanical Ventilator 65 08/09/19 00:30 90 32 137/93 (108) 90 08/09/19 00:15 85 21 126/85 (99) 92 08/09/19 00:00 86 08/09/19 00:00 Mechanical Ventilator Mechanical Ventilator 08/09/19 00:00 65 08/09/19 00:00 21 126/85 Mechanical Ventilator 65 08/09/19 00:00 99.0 88 20 129/83 (98) 94 08/08/19 23:45 84 21 125/80 (95) 91 08/08/19 23:30 83 21 139/93 (108) 93 Intake and Output 08/08/19 08/09/19 19:00 07:00 Intake Total 850.754 ml 959.626 ml Output Total 715 ml 545 ml Balance 135.754 ml 414.626 ml Intake Free Water 100 ml IV Total 210.754 ml 499.626 ml Tube Feeding 360 ml 360 ml Other 280 ml Output Urine Total 715 ml 545 ml # Bowel Movements 1 Laboratory Tests 08/09/19 05:30: White Blood Count 9.9, Red Blood Count 6.14H, Hemoglobin 16.2, Hematocrit 50.9, Mean Corpuscular Volume 83, Mean Corpuscular Hemoglobin 26.3L, Mean Corpuscular Hemoglobin Concent 31.7L, Red Cell Distribution Width 13.7, Platelet Count 195, Mean Platelet Volume 6.7, Neutrophils (%) (Auto) , Lymphocytes (%) (Auto) , Monocytes (%) (Auto) , Eosinophils (%) (Auto) , Basophils (%) (Auto) , Differential Total Cells Counted 100, Neutrophils % (Manual) 94H, Lymphocytes % (Manual) 1L, Monocytes % (Manual) 5, Eosinophils % (Manual) 0, Basophils % ( Manual) 0, Band Neutrophils 0, Platelet Estimate Adequate, Platelet Morphology Normal, Red Blood Cell Morphology Normal, Sodium Level 137, Potassium Level 4.2 , Chloride Level 95L, Carbon Dioxide Level 34H, Anion Gap 8, Blood Urea Nitrogen 43H, Creatinine 1.9H, Estimat Glomerular Filtration Rate 43.5, Glucose Level 142H, Uric Acid 5.7, Calcium Level 9.0, Phosphorus Level 7.2H, Magnesium Level 2.5H, Total Bilirubin 0.6, Aspartate Amino Transf (AST/SGOT) 18, Alanine Aminotransferase (ALT/SGPT) 16, Alkaline Phosphatase 81, C-Reactive Protein, Quantitative 4.5H, Pro-B-Type Natriuretic Peptide 118, Total Protein 7.9, Albumin 3.3L, Globulin 4.6, Albumin/Globulin Ratio 0.7L 08/09/19 09:00: Arterial Blood pH 7.341L, Arterial Blood Partial Pressure CO2 70.0*H, Arterial Blood Partial Pressure O2 67.7L, Arterial Blood HCO3 37.0H, Arterial Blood Oxygen Saturation 91.7L, Arterial Blood Base Excess 7.9H, [place] Test Positive Height (Feet): 6 Height (Inches): 1.00 Weight (Pounds): 210 General Appearance: lethargic Santi Ortez MD Aug 09, 2019 23:17
[2019-08-10] VITALS (47 sets, daily range): BP systolic 122–163; BP diastolic 77–117
[2019-08-10 05:04] LABS: BASOPHILS % (AUTO) 0.4 % (0.0-2.0); EOSINOPHILS % (AUTO) 1.1 % (0.0-3.0); HEMATOCRIT 50.1 % (42.0-52.0); HEMOGLOBIN 15.8 G/DL (14.2-18.0); LYMPHOCYTES % (AUTO) 7.8 % (20.0-45.0); MEAN CORPUSCULAR VOLUME 83 FL (80-99); MONOCYTES % (AUTO) 12.4 % (1.0-10.0); NEUTROPHILS % (AUTO) 78.2 % (45.0-75.0); PLATELET COUNT 194 K/UL (150-450); RED BLOOD COUNT 6.03 M/UL (4.70-6.10); RED CELL DISTRIBUTION WIDTH 13.8 % (11.6-14.8); WHITE BLOOD COUNT 9.5 K/UL (4.8-10.8)
[2019-08-10 05:27] LABS: ALANINE AMINOTRANSFERASE 18 U/L (12-78); ALBUMIN 3.1 G/DL (3.4-5.0); ALBUMIN/GLOBULIN RATIO 0.7 (1.0-2.7); ALKALINE PHOSPHATASE 75 U/L (46-116); ANION GAP 4 mmol/L (5-15); ASPARTATE AMINO TRANSFERASE 18 U/L (15-37); BILIRUBIN,TOTAL 0.4 MG/DL (0.2-1.0); BLOOD UREA NITROGEN 58 mg/dL (7-18); CALCIUM 8.9 MG/DL (8.5-10.1); CARBON DIOXIDE 36 MMOL/L (21-32); CHLORIDE 99 MMOL/L (98-107); CREATINE KINASE 86 U/L (26-308); CREATININE 1.8 MG/DL (0.55-1.30); PHOSPHORUS 5.5 MG/DL (2.5-4.9); POTASSIUM 3.5 MMOL/L (3.5-5.1); SODIUM 139 MMOL/L (136-145)
[2019-08-10 05:28] LABS: ANION GAP 6 mmol/L (5-15); BLOOD UREA NITROGEN 58 mg/dL (7-18); CALCIUM 8.9 MG/DL (8.5-10.1); CARBON DIOXIDE 37 MMOL/L (21-32); CHLORIDE 99 MMOL/L (98-107); CREATININE 1.8 MG/DL (0.55-1.30); POTASSIUM 3.7 MMOL/L (3.5-5.1); SODIUM 141 MMOL/L (136-145); TRIGLYCERIDES 130 MG/DL (30-150)
[2019-08-10] MEDS: Enoxaparin 40mg Inj SUBQ SCH (09:41)
[2019-08-10] MEDS: Solu-MEDROL 40mg Inj IVP SCH ×2 (09:41→21:01)
[2019-08-10] MEDS: Pantoprazole Inj IVP SCH ×2 (09:41→21:01)
--- NOTE | 2019-08-10 11:03 | Diagnostic Imaging Report ---
EXAM: XR Chest, 1 View CLINICAL HISTORY: ABN CHST TECHNIQUE: Frontal view of the chest. COMPARISON: Chest x-ray 08/09/19 836 FINDINGS: Lungs: Mild interstitial prominence. Left lung base atelectasis/airspace disease. Pleural space: Small left pleural effusion. No pneumothorax. Heart: Mild cardiomegaly. Mediastinum: Unremarkable. Bones/joints: Unremarkable. Tubes, lines and devices: Endotracheal tube and NG tube are stable. IMPRESSION: No significant interval change.
--- NOTE | 2019-08-10 11:23 | Pulmonology Progress Note ---
Assessment/Plan Assessment/Plan IMPRESSION: 1. Decompensated congestive heart failure. 2. COPD with respiratory acidosis. 3. Respiratory failure. 4. Obesity. 5. Acute on chronic respiratory acidosis. DISCUSSION: Off lasix; continue Diamox Added steroids Continue broad-spectrum antibiotics. Propofol for sedation. Keep vent on AC mode. Decrease FiO2 and PEEP as tolerated. Still on FiO2 70% and PEEP 8 I will follow. Mitchell Cassidy M.D. Subjective Interval Events: Remains hypoxic; alert, writing notes on clip board Constitutional: Reports: no symptoms HEENT: Repors: no symptoms Respiratory: Reports: no symptoms Cardiovascular: Reports: no symptoms Gastrointestinal/Abdominal: Reports: no symptoms Allergies: Coded Allergies: No Known Allergies (Unverified , 07/23/16) Objective Last 24 Hour Vital Signs Date Time Temp Pulse Resp B/P (MAP) Pulse Ox O2 Delivery O2 Flow Rate FiO2 08/10/19 10:53 20 137/88 Endotracheal Tube 70 08/10/19 10:30 75 20 137/88 (104) 93 08/10/19 10:00 19 143/87 Endotracheal Tube 70 08/10/19 10:00 74 19 143/87 (105) 94 08/10/19 09:30 73 20 129/89 (102) 94 08/10/19 09:00 20 122/83 Endotracheal Tube 70 08/10/19 09:00 69 20 122/83 (96) 94 08/10/19 08:30 70 20 125/80 (95) 96 08/10/19 08:00 70 08/10/19 08:00 20 125/80 Endotracheal Tube 70 08/10/19 08:00 98.8 72 20 125/85 (98) 97 08/10/19 08:00 Mechanical Ventilator Mechanical Ventilator 08/10/19 07:30 74 19 131/88 (102) 96 08/10/19 07:05 71 20 70 08/10/19 07:00 21 125/85 Mechanical Ventilator 70 08/10/19 07:00 71 20 129/77 (94) 96 08/10/19 06:30 80 20 08/10/19 06:30 74 20 127/82 (97) 95 4/12/20 06:00 20 127/82 Mechanical Ventilator 70 08/10/19 06:00 78 20 131/84 (100) 93 08/10/19 05:30 81 20 144/87 (106) 93 08/10/19 05:27 89 23 70 08/10/19 05:13 20 139/91 Mechanical Ventilator 60.0 80 08/10/19 05:00 78 22 163/98 (119) 96 08/10/19 04:54 20 160/92 Mechanical Ventilator 70 08/10/19 04:30 75 21 148/93 (111) 94 08/10/19 04:00 20 139/91 Mechanical Ventilator 80 08/10/19 04:00 20 139/91 Mechanical Ventilator 80 08/10/19 04:00 20 131/84 Mechanical Ventilator 70 08/10/19 04:00 80 08/10/19 04:00 98.7 74 20 137/89 (105) 94 08/10/19 04:00 71 08/10/19 04:00 Mechanical Ventilator Mechanical Ventilator 08/10/19 03:30 68 20 123/93 (103) 95 08/10/19 03:00 32 122/83 Mechanical Ventilator 80 08/10/19 03:00 69 28 126/89 (101) 93 08/10/19 02:30 68 33 123/85 (98) 94 08/10/19 02:12 85 21 80 08/10/19 02:00 71 25 127/81 (96) 94 08/10/19 02:00 21 122/83 Mechanical Ventilator 80 08/10/19 01:30 73 24 127/82 (97) 93 08/10/19 01:00 76 20 140/89 (106) 93 08/10/19 01:00 24 131/83 Mechanical Ventilator 80 08/10/19 00:30 75 20 140/93 (109) 93 08/10/19 00:00 Mechanical Ventilator Mechanical Ventilator 08/10/19 00:00 98.0 75 23 138/89 (105) 93 08/10/19 00:00 80 08/10/19 00:00 23 130/83 Mechanical Ventilator 80 08/10/19 00:00 76 08/09/19 23:30 78 22 127/91 (103) 93 08/09/19 23:30 22 131/93 Mechanical Ventilator 60.0 80 08/09/19 23:00 77 22 124/85 (98) 91 08/09/19 23:00 23 128/85 Mechanical Ventilator 80 08/09/19 22:53 87 22 80 08/09/19 22:30 80 23 130/92 (105) 93 08/09/19 22:00 79 24 127/84 (98) 92 08/09/19 22:00 23 129/86 Mechanical Ventilator 80 08/09/19 21:30 77 22 138/90 (106) 92 08/09/19 21:00 77 21 144/92 (109) 92 08/09/19 21:00 23 130/90 Mechanical Ventilator 80 08/09/19 20:30 80 23 135/95 (108) 90 08/09/19 20:00 78 08/09/19 20:00 Mechanical Ventilator Mechanical Ventilator 08/09/19 20:00 23 137/94 Mechanical Ventilator 80 08/09/19 20:00 80 08/09/19 20:00 98.8 82 23 147/95 (112) 91 08/09/19 19:22 83 24 80 08/09/19 19:00 84 24 140/92 (108) 89 08/09/19 19:00 24 131/93 Mechanical Ventilator 80 08/09/19 18:30 85 19 147/109 (122) 91 08/09/19 18:00 79 22 140/92 (108) 89 08/09/19 18:00 23 133/89 Mechanical Ventilator 80 08/09/19 17:30 81 22 133/89 (104) 89 08/09/19 17:17 82 21 80 08/09/19 17:00 22 142/88 Mechanical Ventilator 80 08/09/19 17:00 81 24 132/86 (101) 88 08/09/19 16:30 81 21 142/88 (106) 88 08/09/19 16:00 80 08/09/19 16:00 Mechanical Ventilator Mechanical Ventilator 08/09/19 16:00 24 151/93 Mechanical Ventilator 80 08/09/19 16:00 98.7 80 24 143/88 (106) 89 08/09/19 15:30 81 24 132/86 (101) 88 08/09/19 15:25 81 23 80 08/09/19 15:22 82 08/09/19 15:15 24 125/84 Mechanical Ventilator 80 08/09/19 15:00 80 24 125/84 (98) 89 08/09/19 14:30 80 24 128/78 (95) 88 08/09/19 14:00 77 23 126/81 (96) 89 08/09/19 14:00 23 128/86 Mechanical Ventilator 80 08/09/19 13:30 78 24 125/82 (96) 90 08/09/19 13:28 78 25 80 08/09/19 13:00 24 124/84 Mechanical Ventilator 80 08/09/19 13:00 79 26 125/83 (97) 89 08/09/19 12:30 78 26 126/84 (98) 90 08/09/19 12:00 98.2 76 23 138/89 (105) 91 08/09/19 12:00 25 126/81 Mechanical Ventilator 80 08/09/19 12:00 76 08/09/19 12:00 Mechanical Ventilator Mechanical Ventilator 08/09/19 12:00 80 08/09/19 11:30 79 24 136/92 (107) 90 08/09/19 11:20 80 25 80 Intake and Output 08/09/19 08/10/19 19:00 07:00 Intake Total 615.200 ml 952.434 ml Output Total 865 ml 590 ml Balance -249.800 ml 362.434 ml Intake Free Water 100 ml IV Total 155.200 ml 492.434 ml Tube Feeding 360 ml 360 ml Other 100 ml Output Urine Total 865 ml 590 ml General Appearance: no acute distress HEENT: normocephalic Respiratory/Chest: chest wall non-tender Cardiovascular: normal peripheral pulses Abdomen: normal bowel sounds Microbiology Date/Time Source Procedure Growth Status 08/09/19 14:00 Sputum Gram Stain - Final Resulted 08/09/19 14:00 Sputum Sputum Culture Pending Resulted Laboratory Tests 08/10/19 04:47: White Blood Count 9.5, Red Blood Count 6.03, Hemoglobin 15.8, Hematocrit 50.1, Mean Corpuscular Volume 83, Mean Corpuscular Hemoglobin 26.2L, Mean Corpuscular Hemoglobin Concent 31.5L, Red Cell Distribution Width 13.8, Platelet Count 194, Mean Platelet Volume 6.7, Neutrophils (%) (Auto) 78.2H, Lymphocytes (%) (Auto) 7.8L, Monocytes (%) (Auto) 12.4H, Eosinophils (%) (Auto) 1.1, Basophils (%) ( Auto) 0.4, Sodium Level 141, Potassium Level 3.7, Chloride Level 99, Carbon Dioxide Level 37H, Anion Gap 6, Blood Urea Nitrogen 58H, Creatinine 1.8H, Estimat Glomerular Filtration Rate 46.3, Glucose Level 112H, Uric Acid 5.7, Calcium Level 8.9, Phosphorus Level 5.5H, Magnesium Level 2.9H, Total Bilirubin 0.4, Aspartate Amino Transf (AST/SGOT) 18, Alanine Aminotransferase (ALT/SGPT) 18, Alkaline Phosphatase 75, Total Creatine Kinase 86, Pro-B-Type Natriuretic Peptide 69, Total Protein 7.4, Albumin 3.1L, Globulin 4.3, Albumin/Globulin Ratio 0.7L, Triglycerides Level 130 08/10/19 09:11: Arterial Blood pH 7.396, Arterial Blood Partial Pressure CO2 59.0*H, Arterial Blood Partial Pressure O2 72.7L, Arterial Blood HCO3 35.4H, Arterial Blood Oxygen Saturation 94.2L, Arterial Blood Base Excess 8.1H, [place] Test Positive Current Medications Medications (Trade) Dose Ordered Sig/Judy Route PRN Reason Start Time Stop Time Status Last Admin Dose Admin Acetazolamide (Diamox) 125 mg TWICE A DAY NG 08/09/19 18:00 09/07/19 11:59 08/10/19 09:41 Azithromycin 500 mg/Dextrose 275 ml @ 275 mls/hr Q24HRS IV 08/06/19 21:00 08/12/19 21:59 08/09/19 21:29 Ceftriaxone Sodium 1 gm/ Dextrose 55 ml @ 110 mls/hr Q24H IVPB 08/06/19 20:00 08/13/19 19:59 08/09/19 20:16 Chlorhexidine Gluconate (Jessenia-Hex 2%) 1 applic DAILY@2000 TOPIC 08/06/19 20:00 11/04/19 19:59 08/09/19 20:15 Clonidine HCl (Catapres Tab) 0.1 mg Q4H PRN GT SBP>170 08/09/19 11:15 11/05/19 12:59 Dextrose (Dextrose 50%) 25 ml Q30M PRN IV Hypoglycemia 08/06/19 10:30 11/04/19 10:29 Dextrose (Dextrose 50%) 50 ml Q30M PRN IV Hypoglycemia 08/06/19 10:30 11/04/19 10:29 Enoxaparin Sodium (Lovenox) 40 mg Q24HRS@0900 SUBQ 08/06/19 11:00 11/04/19 10:59 08/10/19 09:41 Hydralazine HCl (Apresoline) 10 mg Q2H PRN IV SBP>170 08/07/19 13:00 11/05/19 12:59 Methylprednisolone Sodium Succinate (Solu-MEDROL) 40 mg EVERY 12 HOURS IVP 08/08/19 11:20 11/06/19 11:19 08/10/19 09:41 Pantoprazole (Protonix) 40 mg EVERY 12 HOURS IVP 08/06/19 10:00 09/05/19 09:59 08/10/19 09:41 Potassium Chloride (K-Dur) 40 meq DAILY NG 08/10/19 09:00 11/05/19 08:59 08/10/19 09:42 Propofol 100 ml @ 0 mls/hr Q24H IV 08/10/19 05:00 08/12/19 04:59 08/10/19 10:53 Mitchell Cassidy MD Aug 10, 2019 11:23
--- NOTE | 2019-08-10 11:46 | Nephrology Progress Note ---
Assessment/Plan Problem List: (1) CAITLIN (acute kidney injury) (2) Hypokalemia (3) Acute respiratory failure (4) CHF (congestive heart failure) (5) COPD exacerbation Assessment Acute respiratory failure requiring intubation and mechanical ventilation , currently on FiO2 of 70% CHF (congestive heart failure), exacerbation COPD exacerbation Lymphopenia Plan Patient remains on ventilator however remains hypoxic serum creatinine rising to 1.8 however stable for the past 48 hours Discussed with cardiovascular tech Dr. Cassidy Continue potassium supplement and Diamox as needed Vent management per pulmonary NG tube Change feeding to Nepro Continue to monitor renal parameters IV Protonix Antibiotics Steroids initiated 2D echocardiogram ejection fraction 55% Monitor urine output and renal parameters Monitor immunoresponse parameters Per orders Subjective ROS Limited/Unobtainable: Yes Objective Objective Last 24 Hour Vital Signs Date Time Temp Pulse Resp B/P (MAP) Pulse Ox O2 Delivery O2 Flow Rate FiO2 08/10/19 10:53 20 137/88 Endotracheal Tube 70 08/10/19 10:30 75 20 137/88 (104) 93 08/10/19 10:00 19 143/87 Endotracheal Tube 70 08/10/19 10:00 74 19 143/87 (105) 94 08/10/19 09:30 73 20 129/89 (102) 94 08/10/19 09:00 20 122/83 Endotracheal Tube 70 08/10/19 09:00 69 20 122/83 (96) 94 08/10/19 08:30 70 20 125/80 (95) 96 08/10/19 08:00 70 08/10/19 08:00 20 125/80 Endotracheal Tube 70 08/10/19 08:00 98.8 72 20 125/85 (98) 97 08/10/19 08:00 Mechanical Ventilator Mechanical Ventilator 08/10/19 07:30 74 19 131/88 (102) 96 08/10/19 07:05 71 20 70 08/10/19 07:00 21 125/85 Mechanical Ventilator 70 08/10/19 07:00 71 20 129/77 (94) 96 08/10/19 06:30 80 20 08/10/19 06:30 74 20 127/82 (97) 95 08/10/19 06:00 20 127/82 Mechanical Ventilator 70 08/10/19 06:00 78 20 131/84 (100) 93 08/10/19 05:30 81 20 144/87 (106) 93 08/10/19 05:27 89 23 70 08/10/19 05:13 20 139/91 Mechanical Ventilator 60.0 80 08/10/19 05:00 78 22 163/98 (119) 96 08/10/19 04:54 20 160/92 Mechanical Ventilator 70 08/10/19 04:30 75 21 148/93 (111) 94 08/10/19 04:00 20 139/91 Mechanical Ventilator 80 08/10/19 04:00 20 139/91 Mechanical Ventilator 80 08/10/19 04:00 20 131/84 Mechanical Ventilator 70 08/10/19 04:00 80 08/10/19 04:00 98.7 74 20 137/89 (105) 94 08/10/19 04:00 71 08/10/19 04:00 Mechanical Ventilator Mechanical Ventilator 08/10/19 03:30 68 20 123/93 (103) 95 08/10/19 03:00 32 122/83 Mechanical Ventilator 80 08/10/19 03:00 69 28 126/89 (101) 93 08/10/19 02:30 68 33 123/85 (98) 94 08/10/19 02:12 85 21 80 08/10/19 02:00 71 25 127/81 (96) 94 08/10/19 02:00 21 122/83 Mechanical Ventilator 80 08/10/19 01:30 73 24 127/82 (97) 93 08/10/19 01:00 76 20 140/89 (106) 93 08/10/19 01:00 24 131/83 Mechanical Ventilator 80 08/10/19 00:30 75 20 140/93 (109) 93 08/10/19 00:00 Mechanical Ventilator Mechanical Ventilator 08/10/19 00:00 98.0 75 23 138/89 (105) 93 08/10/19 00:00 80 08/10/19 00:00 23 130/83 Mechanical Ventilator 80 08/10/19 00:00 76 08/09/19 23:30 78 22 127/91 (103) 93 08/09/19 23:30 22 131/93 Mechanical Ventilator 60.0 80 08/09/19 23:00 77 22 124/85 (98) 91 08/09/19 23:00 23 128/85 Mechanical Ventilator 80 08/09/19 22:53 87 22 80 08/09/19 22:30 80 23 130/92 (105) 93 08/09/19 22:00 79 24 127/84 (98) 92 08/09/19 22:00 23 129/86 Mechanical Ventilator 80 08/09/19 21:30 77 22 138/90 (106) 92 08/09/19 21:00 77 21 144/92 (109) 92 08/09/19 21:00 23 130/90 Mechanical Ventilator 80 08/09/19 20:30 80 23 135/95 (108) 90 08/09/19 20:00 78 08/09/19 20:00 Mechanical Ventilator Mechanical Ventilator 08/09/19 20:00 23 137/94 Mechanical Ventilator 80 08/09/19 20:00 80 08/09/19 20:00 98.8 82 23 147/95 (112) 91 08/09/19 19:22 83 24 80 08/09/19 19:00 84 24 140/92 (108) 89 08/09/19 19:00 24 131/93 Mechanical Ventilator 80 08/09/19 18:30 85 19 147/109 (122) 91 08/09/19 18:00 79 22 140/92 (108) 89 08/09/19 18:00 23 133/89 Mechanical Ventilator 80 08/09/19 17:30 81 22 133/89 (104) 89 08/09/19 17:17 82 21 80 08/09/19 17:00 22 142/88 Mechanical Ventilator 80 08/09/19 17:00 81 24 132/86 (101) 88 08/09/19 16:30 81 21 142/88 (106) 88 08/09/19 16:00 80 08/09/19 16:00 Mechanical Ventilator Mechanical Ventilator 08/09/19 16:00 24 151/93 Mechanical Ventilator 80 08/09/19 16:00 98.7 80 24 143/88 (106) 89 08/09/19 15:30 81 24 132/86 (101) 88 08/09/19 15:25 81 23 80 08/09/19 15:22 82 08/09/19 15:15 24 125/84 Mechanical Ventilator 80 08/09/19 15:00 80 24 125/84 (98) 89 08/09/19 14:30 80 24 128/78 (95) 88 08/09/19 14:00 77 23 126/81 (96) 89 08/09/19 14:00 23 128/86 Mechanical Ventilator 80 08/09/19 13:30 78 24 125/82 (96) 90 08/09/19 13:28 78 25 80 08/09/19 13:00 24 124/84 Mechanical Ventilator 80 08/09/19 13:00 79 26 125/83 (97) 89 08/09/19 12:30 78 26 126/84 (98) 90 08/09/19 12:00 98.2 76 23 138/89 (105) 91 08/09/19 12:00 25 126/81 Mechanical Ventilator 80 08/09/19 12:00 76 08/09/19 12:00 Mechanical Ventilator Mechanical Ventilator 08/09/19 12:00 80 Intake and Output 08/09/19 08/10/19 19:00 07:00 Intake Total 615.200 ml 952.434 ml Output Total 865 ml 590 ml Balance -249.800 ml 362.434 ml Intake Free Water 100 ml IV Total 155.200 ml 492.434 ml Tube Feeding 360 ml 360 ml Other 100 ml Output Urine Total 865 ml 590 ml Current Medications Medications (Trade) Dose Ordered Sig/Judy Route PRN Reason Start Time Stop Time Status Last Admin Dose Admin Acetazolamide (Diamox) 125 mg TWICE A DAY NG 08/09/19 18:00 09/07/19 11:59 08/10/19 09:41 Azithromycin 500 mg/Dextrose 275 ml @ 275 mls/hr Q24HRS IV 08/06/19 21:00 08/12/19 21:59 08/09/19 21:29 Ceftriaxone Sodium 1 gm/ Dextrose 55 ml @ 110 mls/hr Q24H IVPB 08/06/19 20:00 08/13/19 19:59 08/09/19 20:16 Chlorhexidine Gluconate (Jessenia-Hex 2%) 1 applic DAILY@2000 TOPIC 08/06/19 20:00 11/04/19 19:59 08/09/19 20:15 Clonidine HCl (Catapres Tab) 0.1 mg Q4H PRN GT SBP>170 08/09/19 11:15 11/05/19 12:59 Dextrose (Dextrose 50%) 25 ml Q30M PRN IV Hypoglycemia 08/06/19 10:30 11/04/19 10:29 Dextrose (Dextrose 50%) 50 ml Q30M PRN IV Hypoglycemia 08/06/19 10:30 11/04/19 10:29 Enoxaparin Sodium (Lovenox) 40 mg Q24HRS@0900 SUBQ 08/06/19 11:00 11/04/19 10:59 08/10/19 09:41 Hydralazine HCl (Apresoline) 10 mg Q2H PRN IV SBP>170 08/07/19 13:00 11/05/19 12:59 Methylprednisolone Sodium Succinate (Solu-MEDROL) 40 mg EVERY 12 HOURS IVP 08/08/19 11:20 11/06/19 11:19 08/10/19 09:41 Pantoprazole (Protonix) 40 mg EVERY 12 HOURS IVP 08/06/19 10:00 09/05/19 09:59 08/10/19 09:41 Potassium Chloride (K-Dur) 40 meq DAILY NG 08/10/19 09:00 11/05/19 08:59 08/10/19 09:42 Propofol 100 ml @ 0 mls/hr Q24H IV 08/10/19 05:00 08/12/19 04:59 08/10/19 10:53 Laboratory Tests 08/10/19 04:47: White Blood Count 9.5, Red Blood Count 6.03, Hemoglobin 15.8, Hematocrit 50.1, Mean Corpuscular Volume 83, Mean Corpuscular Hemoglobin 26.2L, Mean Corpuscular Hemoglobin Concent 31.5L, Red Cell Distribution Width 13.8, Platelet Count 194, Mean Platelet Volume 6.7, Neutrophils (%) (Auto) 78.2H, Lymphocytes (%) (Auto) 7.8L, Monocytes (%) (Auto) 12.4H, Eosinophils (%) (Auto) 1.1, Basophils (%) ( Auto) 0.4, Sodium Level 141, Potassium Level 3.7, Chloride Level 99, Carbon Dioxide Level 37H, Anion Gap 6, Blood Urea Nitrogen 58H, Creatinine 1.8H, Estimat Glomerular Filtration Rate 46.3, Glucose Level 112H, Uric Acid 5.7, Calcium Level 8.9, Phosphorus Level 5.5H, Magnesium Level 2.9H, Total Bilirubin 0.4, Aspartate Amino Transf (AST/SGOT) 18, Alanine Aminotransferase (ALT/SGPT) 18, Alkaline Phosphatase 75, Total Creatine Kinase 86, Pro-B-Type Natriuretic Peptide 69, Total Protein 7.4, Albumin 3.1L, Globulin 4.3, Albumin/Globulin Ratio 0.7L, Triglycerides Level 130 08/10/19 09:11: Arterial Blood pH 7.396, Arterial Blood Partial Pressure CO2 59.0*H, Arterial Blood Partial Pressure O2 72.7L, Arterial Blood HCO3 35.4H, Arterial Blood Oxygen Saturation 94.2L, Arterial Blood Base Excess 8.1H, [place] Test Positive Height (Feet): 6 Height (Inches): 1.00 Weight (Pounds): 211 General Appearance: no apparent distress, other - Awake communicating with writing on paper EENT: other - Remains intubated Cardiovascular: normal rate Respiratory/Chest: decreased breath sounds Abdomen: soft Ovi Byrnes MD Aug 10, 2019 11:46
--- NOTE | 2019-08-10 12:07 | Infectious Diseases Prog Note ---
Assessment/Plan Assessment/Plan IMPRESSION: COPD exacerbation, Hypercapnic respiratory failure CHF exacerbation, Diastolic Hypertension, Pulmonary hypertension, Chronic kidney disease, sleep apnea. RECOMMENDATION: We will continue ceftriaxone & azithromycin. Negative COVID19 tests. Will f/u sputum culture & Second COVID19 test Subjective ROS Limited/Unobtainable: Yes Allergies: Coded Allergies: No Known Allergies (Unverified , 07/23/16) Objective Vital Signs Last 24 Hour Vital Signs Date Time Temp Pulse Resp B/P (MAP) Pulse Ox O2 Delivery O2 Flow Rate FiO2 08/10/19 11:55 19 149/96 Endotracheal Tube 70 08/10/19 11:30 98.7 78 20 149/96 (113) 93 08/10/19 11:00 20 142/96 Endotracheal Tube 70 08/10/19 11:00 75 20 142/96 (111) 93 08/10/19 10:53 20 137/88 Endotracheal Tube 70 08/10/19 10:30 75 20 137/88 (104) 93 08/10/19 10:00 19 143/87 Endotracheal Tube 70 08/10/19 10:00 74 19 143/87 (105) 94 08/10/19 09:30 73 20 129/89 (102) 94 08/10/19 09:00 20 122/83 Endotracheal Tube 70 08/10/19 09:00 69 20 122/83 (96) 94 08/10/19 08:30 70 20 125/80 (95) 96 08/10/19 08:00 70 08/10/19 08:00 20 125/80 Endotracheal Tube 70 08/10/19 08:00 98.8 72 20 125/85 (98) 97 08/10/19 08:00 Mechanical Ventilator Mechanical Ventilator 08/10/19 07:30 74 19 131/88 (102) 96 08/10/19 07:05 71 20 70 08/10/19 07:00 21 125/85 Mechanical Ventilator 70 08/10/19 07:00 71 20 129/77 (94) 96 08/10/19 06:30 80 20 08/10/19 06:30 74 20 127/82 (97) 95 08/10/19 06:00 20 127/82 Mechanical Ventilator 70 08/10/19 06:00 78 20 131/84 (100) 93 08/10/19 05:30 81 20 144/87 (106) 93 08/10/19 05:27 89 23 70 08/10/19 05:13 20 139/91 Mechanical Ventilator 60.0 80 08/10/19 05:00 78 22 163/98 (119) 96 08/10/19 04:54 20 160/92 Mechanical Ventilator 70 08/10/19 04:30 75 21 148/93 (111) 94 08/10/19 04:00 20 139/91 Mechanical Ventilator 80 08/10/19 04:00 20 139/91 Mechanical Ventilator 80 08/10/19 04:00 20 131/84 Mechanical Ventilator 70 08/10/19 04:00 80 08/10/19 04:00 98.7 74 20 137/89 (105) 94 08/10/19 04:00 71 08/10/19 04:00 Mechanical Ventilator Mechanical Ventilator 08/10/19 03:30 68 20 123/93 (103) 95 08/10/19 03:00 32 122/83 Mechanical Ventilator 80 08/10/19 03:00 69 28 126/89 (101) 93 08/10/19 02:30 68 33 123/85 (98) 94 08/10/19 02:12 85 21 80 08/10/19 02:00 71 25 127/81 (96) 94 08/10/19 02:00 21 122/83 Mechanical Ventilator 80 08/10/19 01:30 73 24 127/82 (97) 93 08/10/19 01:00 76 20 140/89 (106) 93 08/10/19 01:00 24 131/83 Mechanical Ventilator 80 08/10/19 00:30 75 20 140/93 (109) 93 08/10/19 00:00 Mechanical Ventilator Mechanical Ventilator 08/10/19 00:00 98.0 75 23 138/89 (105) 93 08/10/19 00:00 80 08/10/19 00:00 23 130/83 Mechanical Ventilator 80 08/10/19 00:00 76 08/09/19 23:30 78 22 127/91 (103) 93 08/09/19 23:30 22 131/93 Mechanical Ventilator 60.0 80 08/09/19 23:00 77 22 124/85 (98) 91 08/09/19 23:00 23 128/85 Mechanical Ventilator 80 08/09/19 22:53 87 22 80 08/09/19 22:30 80 23 130/92 (105) 93 08/09/19 22:00 79 24 127/84 (98) 92 08/09/19 22:00 23 129/86 Mechanical Ventilator 80 08/09/19 21:30 77 22 138/90 (106) 92 08/09/19 21:00 77 21 144/92 (109) 92 08/09/19 21:00 23 130/90 Mechanical Ventilator 80 08/09/19 20:30 80 23 135/95 (108) 90 08/09/19 20:00 78 08/09/19 20:00 Mechanical Ventilator Mechanical Ventilator 08/09/19 20:00 23 137/94 Mechanical Ventilator 80 08/09/19 20:00 80 08/09/19 20:00 98.8 82 23 147/95 (112) 91 08/09/19 19:22 83 24 80 08/09/19 19:00 84 24 140/92 (108) 89 08/09/19 19:00 24 131/93 Mechanical Ventilator 80 08/09/19 18:30 85 19 147/109 (122) 91 08/09/19 18:00 79 22 140/92 (108) 89 08/09/19 18:00 23 133/89 Mechanical Ventilator 80 08/09/19 17:30 81 22 133/89 (104) 89 08/09/19 17:17 82 21 80 08/09/19 17:00 22 142/88 Mechanical Ventilator 80 08/09/19 17:00 81 24 132/86 (101) 88 08/09/19 16:30 81 21 142/88 (106) 88 08/09/19 16:00 80 08/09/19 16:00 Mechanical Ventilator Mechanical Ventilator 08/09/19 16:00 24 151/93 Mechanical Ventilator 80 08/09/19 16:00 98.7 80 24 143/88 (106) 89 08/09/19 15:30 81 24 132/86 (101) 88 08/09/19 15:25 81 23 80 08/09/19 15:22 82 08/09/19 15:15 24 125/84 Mechanical Ventilator 80 08/09/19 15:00 80 24 125/84 (98) 89 08/09/19 14:30 80 24 128/78 (95) 88 08/09/19 14:00 77 23 126/81 (96) 89 08/09/19 14:00 23 128/86 Mechanical Ventilator 80 08/09/19 13:30 78 24 125/82 (96) 90 08/09/19 13:28 78 25 80 08/09/19 13:00 24 124/84 Mechanical Ventilator 80 08/09/19 13:00 79 26 125/83 (97) 89 08/09/19 12:30 78 26 126/84 (98) 90 Height (Feet): 6 Height (Inches): 1.00 Weight (Pounds): 211 HEENT: mucous membranes moist Respiratory/Chest: other - on ventilator Cardiovascular: normal rate Abdomen: soft, non tender, other - NG tube Extremities: other Neurologic/Psychiatric: other - sedated Microbiology Date/Time Source Procedure Growth Status 08/09/19 14:00 Sputum Gram Stain - Final Resulted 08/09/19 14:00 Sputum Sputum Culture Pending Resulted Laboratory Tests Test 08/10/19 04:47 08/10/19 09:11 White Blood Count 9.5 K/UL (4.8-10.8) Red Blood Count 6.03 M/UL (4.70-6.10) Hemoglobin 15.8 G/DL (14.2-18.0) Hematocrit 50.1 % (42.0-52.0) Mean Corpuscular Volume 83 FL (80-99) Mean Corpuscular Hemoglobin 26.2 PG (27.0-31.0) L Mean Corpuscular Hemoglobin Concent 31.5 G/DL (32.0-36.0) L Red Cell Distribution Width 13.8 % (11.6-14.8) Platelet Count 194 K/UL (150-450) Mean Platelet Volume 6.7 FL (6.5-10.1) Neutrophils (%) (Auto) 78.2 % (45.0-75.0) H Lymphocytes (%) (Auto) 7.8 % (20.0-45.0) L Monocytes (%) (Auto) 12.4 % (1.0-10.0) H Eosinophils (%) (Auto) 1.1 % (0.0-3.0) Basophils (%) (Auto) 0.4 % (0.0-2.0) Sodium Level 141 MMOL/L (136-145) Potassium Level 3.7 MMOL/L (3.5-5.1) Chloride Level 99 MMOL/L (98-107) Carbon Dioxide Level 37 MMOL/L (21-32) H Anion Gap 6 mmol/L (5-15) Blood Urea Nitrogen 58 mg/dL (7-18) H Creatinine 1.8 MG/DL (0.55-1.30) H Estimat Glomerular Filtration Rate 46.3 mL/min (>60) Glucose Level 112 MG/DL (74-106) H Uric Acid 5.7 MG/DL (2.6-7.2) Calcium Level 8.9 MG/DL (8.5-10.1) Phosphorus Level 5.5 MG/DL (2.5-4.9) H Magnesium Level 2.9 MG/DL (1.8-2.4) H Total Bilirubin 0.4 MG/DL (0.2-1.0) Aspartate Amino Transf (AST/SGOT) 18 U/L (15-37) Alanine Aminotransferase (ALT/SGPT) 18 U/L (12-78) Alkaline Phosphatase 75 U/L (46-116) Total Creatine Kinase 86 U/L (26-308) Pro-B-Type Natriuretic Peptide 69 pg/mL (0-125) Total Protein 7.4 G/DL (6.4-8.2) Albumin 3.1 G/DL (3.4-5.0) L Globulin 4.3 g/dL Albumin/Globulin Ratio 0.7 (1.0-2.7) L Triglycerides Level 130 MG/DL (30-150) Arterial Blood pH 7.396 (7.350-7.450) Arterial Blood Partial Pressure CO2 59.0 mmHg (35.0-45.0) *H Arterial Blood Partial Pressure O2 72.7 mmHg (75.0-100.0) L Arterial Blood HCO3 35.4 mmol/L (22.0-26.0) H Arterial Blood Oxygen Saturation 94.2 % (95-100) L Arterial Blood Base Excess 8.1 (-2-2) H [place] Test Positive Current Medications Medications (Trade) Dose Ordered Sig/Judy Route PRN Reason Start Time Stop Time Status Last Admin Dose Admin Acetazolamide (Diamox) 125 mg TWICE A DAY NG 08/09/19 18:00 09/07/19 11:59 08/10/19 09:41 Azithromycin 500 mg/Dextrose 275 ml @ 275 mls/hr Q24HRS IV 08/06/19 21:00 08/12/19 21:59 08/09/19 21:29 Ceftriaxone Sodium 1 gm/ Dextrose 55 ml @ 110 mls/hr Q24H IVPB 08/06/19 20:00 08/13/19 19:59 08/09/19 20:16 Chlorhexidine Gluconate (Jessenia-Hex 2%) 1 applic DAILY@2000 TOPIC 08/06/19 20:00 11/04/19 19:59 08/09/19 20:15 Clonidine HCl (Catapres Tab) 0.1 mg Q4H PRN GT SBP>170 08/09/19 11:15 11/05/19 12:59 Dextrose (Dextrose 50%) 25 ml Q30M PRN IV Hypoglycemia 08/06/19 10:30 11/04/19 10:29 Dextrose (Dextrose 50%) 50 ml Q30M PRN IV Hypoglycemia 08/06/19 10:30 11/04/19 10:29 Enoxaparin Sodium (Lovenox) 40 mg Q24HRS@0900 SUBQ 08/06/19 11:00 11/04/19 10:59 08/10/19 09:41 Hydralazine HCl (Apresoline) 10 mg Q2H PRN IV SBP>170 08/07/19 13:00 11/05/19 12:59 Methylprednisolone Sodium Succinate (Solu-MEDROL) 40 mg EVERY 12 HOURS IVP 08/08/19 11:20 11/06/19 11:19 08/10/19 09:41 Pantoprazole (Protonix) 40 mg EVERY 12 HOURS IVP 08/06/19 10:00 09/05/19 09:59 08/10/19 09:41 Potassium Chloride (K-Dur) 40 meq DAILY NG 08/10/19 09:00 11/05/19 08:59 08/10/19 09:42 Propofol 100 ml @ 0 mls/hr Q24H IV 08/10/19 05:00 08/12/19 04:59 08/10/19 10:53 Jesús Rose MD Aug 10, 2019 12:07
[2019-08-10] MEDS ORDERED: NS 500ML ONE (14:12)
[2019-08-10] MEDS ORDERED: D5 1/2NS 1000ml IV ONE (14:12)
[2019-08-10] MEDS ORDERED: Tubing IV Secondary IV ONE (14:12)
[2019-08-10] MEDS ORDERED: Sterile Water Irrig 1000ml IRRIG ONE (14:12)
[2019-08-10] MEDS: Dyna-Hex 2% Top Sol 2oz TOPIC SCH (19:20)
[2019-08-10] MEDS: cefTRIAXone 1 GM in D5W 55 ML IVPB SCH (19:22)
--- NOTE | 2019-08-10 20:40 | General Progress Note ---
Assessment/Plan Problem List: (1) Respiratory failure ICD Codes: J96.90 - Respiratory failure, unspecified, unspecified whether with hypoxia or hypercapnia SNOMED: 356117643 (2) CHF exacerbation ICD Codes: I50.9 - Heart failure, unspecified SNOMED: 517972584, 70841624778448 (3) COPD exacerbation ICD Codes: J44.1 - Chronic obstructive pulmonary disease with (acute) exacerbation SNOMED: 512182580 (4) Acute respiratory failure ICD Codes: J96.00 - Acute respiratory failure, unspecified whether with hypoxia or hypercapnia SNOMED: 13387269 (5) ATN (acute tubular necrosis) ICD Codes: N17.0 - Acute kidney failure with tubular necrosis SNOMED: 73903403 (6) Nephrotic syndrome ICD Codes: N04.9 - Nephrotic syndrome with unspecified morphologic changes SNOMED: 16818971 Status: unchanged Assessment/Plan: resp failure sepsis pna intubated chf exac as well as pna not improving poor prognosis Subjective ROS Limited/Unobtainable: Yes Allergies: Coded Allergies: No Known Allergies (Unverified , 07/23/16) Objective Last 24 Hour Vital Signs Date Time Temp Pulse Resp B/P (MAP) Pulse Ox O2 Delivery O2 Flow Rate FiO2 08/10/19 19:21 21 139/88 Endotracheal Tube 60.0 70 08/10/19 18:00 87 21 159/97 (117) 92 08/10/19 18:00 21 159/97 Endotracheal Tube 70 08/10/19 17:30 75 20 129/85 (100) 94 08/10/19 17:05 75 21 70 08/10/19 17:00 74 20 127/81 (96) 95 08/10/19 17:00 20 127/81 Endotracheal Tube 70 08/10/19 16:30 81 22 129/81 (97) 94 08/10/19 16:00 Mechanical Ventilator Mechanical Ventilator 08/10/19 16:00 98.5 83 20 127/79 (95) 95 08/10/19 16:00 20 127/79 Endotracheal Tube 70 08/10/19 16:00 70 08/10/19 16:00 78 08/10/19 15:30 75 20 128/81 (97) 93 08/10/19 15:00 73 22 70 08/10/19 15:00 21 75/47 Endotracheal Tube 70 08/10/19 15:00 76 21 137/80 (99) 94 08/10/19 14:30 77 20 147/94 (111) 95 08/10/19 14:24 19 144/89 Endotracheal Tube 70 08/10/19 14:00 80 23 144/89 (107) 93 08/10/19 13:30 85 20 146/95 (112) 94 08/10/19 13:00 84 22 147/92 (110) 91 08/10/19 12:53 90 24 70 08/10/19 12:30 86 18 156/92 (113) 88 08/10/19 12:12 80 22 70 08/10/19 12:07 70 08/10/19 12:00 82 21 149/86 (107) 90 08/10/19 12:00 78 08/10/19 12:00 Mechanical Ventilator Mechanical Ventilator 08/10/19 11:55 19 149/96 Endotracheal Tube 70 08/10/19 11:30 98.7 78 20 149/96 (113) 93 08/10/19 11:00 20 142/96 Endotracheal Tube 70 08/10/19 11:00 75 20 142/96 (111) 93 08/10/19 10:53 20 137/88 Endotracheal Tube 70 08/10/19 10:30 75 20 137/88 (104) 93 08/10/19 10:00 19 143/87 Endotracheal Tube 70 08/10/19 10:00 74 19 143/87 (105) 94 08/10/19 09:30 73 20 129/89 (102) 94 08/10/19 09:00 20 122/83 Endotracheal Tube 70 08/10/19 09:00 69 20 122/83 (96) 94 08/10/19 09:00 77 25 70 08/10/19 08:30 70 20 125/80 (95) 96 08/10/19 08:00 72 08/10/19 08:00 70 08/10/19 08:00 20 125/80 Endotracheal Tube 70 08/10/19 08:00 98.8 72 20 125/85 (98) 97 08/10/19 08:00 Mechanical Ventilator Mechanical Ventilator 08/10/19 07:30 74 19 131/88 (102) 96 08/10/19 07:05 71 20 70 08/10/19 07:00 21 125/85 Mechanical Ventilator 70 08/10/19 07:00 71 20 129/77 (94) 96 08/10/19 06:30 80 20 08/10/19 06:30 74 20 127/82 (97) 95 08/10/19 06:00 20 127/82 Mechanical Ventilator 70 08/10/19 06:00 78 20 131/84 (100) 93 08/10/19 05:30 81 20 144/87 (106) 93 08/10/19 05:27 89 23 70 08/10/19 05:13 20 139/91 Mechanical Ventilator 60.0 80 08/10/19 05:00 78 22 163/98 (119) 96 08/10/19 04:54 20 160/92 Mechanical Ventilator 70 08/10/19 04:30 75 21 148/93 (111) 94 08/10/19 04:00 20 139/91 Mechanical Ventilator 80 08/10/19 04:00 20 139/91 Mechanical Ventilator 80 08/10/19 04:00 20 131/84 Mechanical Ventilator 70 08/10/19 04:00 80 08/10/19 04:00 98.7 74 20 137/89 (105) 94 08/10/19 04:00 71 08/10/19 04:00 Mechanical Ventilator Mechanical Ventilator 08/10/19 03:30 68 20 123/93 (103) 95 08/10/19 03:00 32 122/83 Mechanical Ventilator 80 08/10/19 03:00 69 28 126/89 (101) 93 08/10/19 02:30 68 33 123/85 (98) 94 08/10/19 02:12 85 21 80 08/10/19 02:00 71 25 127/81 (96) 94 08/10/19 02:00 21 122/83 Mechanical Ventilator 80 08/10/19 01:30 73 24 127/82 (97) 93 08/10/19 01:00 76 20 140/89 (106) 93 08/10/19 01:00 24 131/83 Mechanical Ventilator 80 08/10/19 00:30 75 20 140/93 (109) 93 08/10/19 00:00 Mechanical Ventilator Mechanical Ventilator 08/10/19 00:00 98.0 75 23 138/89 (105) 93 08/10/19 00:00 80 08/10/19 00:00 23 130/83 Mechanical Ventilator 80 08/10/19 00:00 76 08/09/19 23:30 78 22 127/91 (103) 93 08/09/19 23:30 22 131/93 Mechanical Ventilator 60.0 80 08/09/19 23:00 77 22 124/85 (98) 91 08/09/19 23:00 23 128/85 Mechanical Ventilator 80 08/09/19 22:53 87 22 80 08/09/19 22:30 80 23 130/92 (105) 93 08/09/19 22:00 79 24 127/84 (98) 92 08/09/19 22:00 23 129/86 Mechanical Ventilator 80 08/09/19 21:30 77 22 138/90 (106) 92 08/09/19 21:00 77 21 144/92 (109) 92 08/09/19 21:00 23 130/90 Mechanical Ventilator 80 Intake and Output 08/09/19 08/10/19 19:00 07:00 Intake Total 615.200 ml 952.434 ml Output Total 865 ml 590 ml Balance -249.800 ml 362.434 ml Intake Free Water 100 ml IV Total 155.200 ml 492.434 ml Tube Feeding 360 ml 360 ml Other 100 ml Output Urine Total 865 ml 590 ml Laboratory Tests 08/10/19 04:47: White Blood Count 9.5, Red Blood Count 6.03, Hemoglobin 15.8, Hematocrit 50.1, Mean Corpuscular Volume 83, Mean Corpuscular Hemoglobin 26.2L, Mean Corpuscular Hemoglobin Concent 31.5L, Red Cell Distribution Width 13.8, Platelet Count 194, Mean Platelet Volume 6.7, Neutrophils (%) (Auto) 78.2H, Lymphocytes (%) (Auto) 7.8L, Monocytes (%) (Auto) 12.4H, Eosinophils (%) (Auto) 1.1, Basophils (%) ( Auto) 0.4, Sodium Level 141, Potassium Level 3.7, Chloride Level 99, Carbon Dioxide Level 37H, Anion Gap 6, Blood Urea Nitrogen 58H, Creatinine 1.8H, Estimat Glomerular Filtration Rate 46.3, Glucose Level 112H, Uric Acid 5.7, Calcium Level 8.9, Phosphorus Level 5.5H, Magnesium Level 2.9H, Total Bilirubin 0.4, Aspartate Amino Transf (AST/SGOT) 18, Alanine Aminotransferase (ALT/SGPT) 18, Alkaline Phosphatase 75, Total Creatine Kinase 86, Pro-B-Type Natriuretic Peptide 69, Total Protein 7.4, Albumin 3.1L, Globulin 4.3, Albumin/Globulin Ratio 0.7L, Triglycerides Level 130 08/10/19 09:11: Arterial Blood pH 7.396, Arterial Blood Partial Pressure CO2 59.0*H, Arterial Blood Partial Pressure O2 72.7L, Arterial Blood HCO3 35.4H, Arterial Blood Oxygen Saturation 94.2L, Arterial Blood Base Excess 8.1H, [place] Test Positive 08/10/19 11:50: Arterial Blood pH 7.379, Arterial Blood Partial Pressure CO2 65.2*H, Arterial Blood Partial Pressure O2 59.9L, Arterial Blood HCO3 37.6H, Arterial Blood Oxygen Saturation 89.9*L, Arterial Blood Base Excess 9.4*H, [place] Test Positive Height (Feet): 6 Height (Inches): 1.00 Weight (Pounds): 211 Santi Ortez MD Aug 10, 2019 20:40
[2019-08-10] MEDS: Azithromycin 500 MG in D5W 275 ML IV SCH (21:02)
[2019-08-11] VITALS (47 sets, daily range): BP systolic 128–210; BP diastolic 80–145
[2019-08-11 05:48] LABS: HEMATOCRIT 49.4 % (42.0-52.0); HEMOGLOBIN 15.6 G/DL (14.2-18.0); MEAN CORPUSCULAR VOLUME 83 FL (80-99); PLATELET COUNT 217 K/UL (150-450); RED BLOOD COUNT 5.95 M/UL (4.70-6.10); RED CELL DISTRIBUTION WIDTH 13.5 % (11.6-14.8); WHITE BLOOD COUNT 10.6 K/UL (4.8-10.8)
[2019-08-11 06:12] LABS: PHOSPHORUS 3.9 MG/DL (2.5-4.9)
[2019-08-11 06:13] LABS: ALANINE AMINOTRANSFERASE 17 U/L (12-78); ALBUMIN 3.1 G/DL (3.4-5.0); ALBUMIN/GLOBULIN RATIO 0.7 (1.0-2.7); ALKALINE PHOSPHATASE 72 U/L (46-116); ANION GAP 6 mmol/L (5-15); ASPARTATE AMINO TRANSFERASE 25 U/L (15-37); BILIRUBIN,TOTAL 0.4 MG/DL (0.2-1.0); BLOOD UREA NITROGEN 53 mg/dL (7-18); CALCIUM 9.1 MG/DL (8.5-10.1); CARBON DIOXIDE 33 MMOL/L (21-32); CHLORIDE 100 MMOL/L (98-107); CREATININE 1.7 MG/DL (0.55-1.30); POTASSIUM 4.1 MMOL/L (3.5-5.1); SODIUM 139 MMOL/L (136-145); TRIGLYCERIDES 102 MG/DL (30-150)
[2019-08-11] MEDS: Solu-MEDROL 40mg Inj IVP SCH ×2 (08:09→20:51)
[2019-08-11] MEDS: Pantoprazole Inj IVP SCH ×2 (08:10→20:49)
[2019-08-11] MEDS: Enoxaparin 40mg Inj SUBQ SCH (08:11)
--- NOTE | 2019-08-11 10:00 | Infectious Diseases Prog Note ---
Assessment/Plan Assessment/Plan IMPRESSION: COPD exacerbation, Hypercapnic respiratory failure CHF exacerbation, Diastolic Hypertension, Pulmonary hypertension, Chronic kidney disease, sleep apnea. RECOMMENDATION: We will continue ceftriaxone & azithromycin. Negative COVID19 tests. Will f/u Second COVID19 test sputum culture: normal fly Case was D/[employer] worker Subjective ROS Limited/Unobtainable: Yes Constitutional: Denies: fever Allergies: Coded Allergies: No Known Allergies (Unverified , 07/23/16) Objective Vital Signs Last 24 Hour Vital Signs Date Time Temp Pulse Resp B/P (MAP) Pulse Ox O2 Delivery O2 Flow Rate FiO2 08/11/19 09:30 81 27 70 08/11/19 08:30 77 20 149/100 (116) 95 08/11/19 08:09 20 141/86 Mechanical Ventilator 70 08/11/19 08:00 97.9 74 20 141/86 (104) 94 08/11/19 08:00 70 08/11/19 07:30 73 20 144/94 (111) 93 08/11/19 07:15 77 20 70 08/11/19 07:00 20 137/85 Mechanical Ventilator 70 08/11/19 07:00 71 20 137/85 (102) 94 08/11/19 06:30 73 20 08/11/19 06:00 20 141/91 Mechanical Ventilator 70 08/11/19 06:00 72 20 141/91 (108) 94 08/11/19 05:30 73 20 140/92 (108) 94 08/11/19 05:00 20 140/92 Mechanical Ventilator 70 08/11/19 05:00 74 20 141/93 (109) 95 08/11/19 04:30 74 20 137/87 (104) 93 08/11/19 04:00 78 08/11/19 04:00 70 08/11/19 04:00 Mechanical Ventilator Mechanical Ventilator 08/11/19 04:00 21 137/87 Mechanical Ventilator 70 08/11/19 04:00 98.4 76 20 145/87 (106) 94 08/11/19 03:30 71 20 70 08/11/19 03:30 78 21 135/93 (107) 93 08/11/19 03:00 87 21 140/89 (106) 92 08/11/19 02:58 19 147/96 Mechanical Ventilator 60.0 70 08/11/19 02:57 21 147/96 Mechanical Ventilator 70 08/11/19 02:30 76 17 139/94 (109) 95 08/11/19 02:00 77 20 147/96 (113) 97 08/11/19 02:00 19 147/96 Mechanical Ventilator 70 08/11/19 01:30 81 20 144/92 (109) 93 08/11/19 01:00 20 144/92 Mechanical Ventilator 70 08/11/19 01:00 78 19 149/99 (116) 93 08/11/19 00:47 79 19 151/100 (117) 93 08/11/19 00:00 Mechanical Ventilator Mechanical Ventilator 08/11/19 00:00 71 08/11/19 00:00 21 150/75 Mechanical Ventilator 70 08/11/19 00:00 98.0 91 22 176/109 (131) 91 08/11/19 00:00 70 08/10/19 23:30 87 21 156/99 (118) 92 08/10/19 23:00 21 156/99 Mechanical Ventilator 70 08/10/19 23:00 90 21 154/117 (129) 94 08/10/19 22:40 78 20 70 08/10/19 22:30 97 24 154/109 (124) 92 08/10/19 22:00 93 24 152/103 (119) 93 08/10/19 22:00 24 154/109 Mechanical Ventilator 70 08/10/19 21:30 80 21 146/95 (112) 95 08/10/19 21:00 79 22 139/89 (106) 94 08/10/19 21:00 21 146/95 Mechanical Ventilator 70 08/10/19 20:30 75 20 134/94 (107) 94 08/10/19 20:00 70 08/10/19 20:00 75 20 129/87 (101) 94 08/10/19 20:00 Mechanical Ventilator Mechanical Ventilator 08/10/19 20:00 21 134/94 Mechanical Ventilator 70 08/10/19 20:00 74 08/10/19 19:30 79 20 140/95 (110) 95 08/10/19 19:21 21 139/88 Endotracheal Tube 60.0 70 08/10/19 19:20 21 140/90 Mechanical Ventilator 70 08/10/19 19:15 77 20 70 08/10/19 19:00 81 23 139/88 (105) 93 08/10/19 18:00 87 21 159/97 (117) 92 08/10/19 18:00 21 159/97 Endotracheal Tube 70 08/10/19 17:30 75 20 129/85 (100) 94 08/10/19 17:05 75 21 70 08/10/19 17:00 74 20 127/81 (96) 95 08/10/19 17:00 20 127/81 Endotracheal Tube 70 08/10/19 16:30 81 22 129/81 (97) 94 08/10/19 16:00 Mechanical Ventilator Mechanical Ventilator 08/10/19 16:00 98.5 83 20 127/79 (95) 95 08/10/19 16:00 20 127/79 Endotracheal Tube 70 08/10/19 16:00 70 08/10/19 16:00 78 08/10/19 15:30 75 20 128/81 (97) 93 08/10/19 15:00 73 22 70 08/10/19 15:00 21 75/47 Endotracheal Tube 70 08/10/19 15:00 76 21 137/80 (99) 94 08/10/19 14:30 77 20 147/94 (111) 95 08/10/19 14:24 19 144/89 Endotracheal Tube 70 08/10/19 14:00 80 23 144/89 (107) 93 08/10/19 13:30 85 20 146/95 (112) 94 08/10/19 13:00 84 22 147/92 (110) 91 08/10/19 12:53 90 24 70 08/10/19 12:30 86 18 156/92 (113) 88 08/10/19 12:12 80 22 70 08/10/19 12:07 70 08/10/19 12:00 82 21 149/86 (107) 90 08/10/19 12:00 78 08/10/19 12:00 Mechanical Ventilator Mechanical Ventilator 08/10/19 11:55 19 149/96 Endotracheal Tube 70 08/10/19 11:30 98.7 78 20 149/96 (113) 93 08/10/19 11:00 20 142/96 Endotracheal Tube 70 08/10/19 11:00 75 20 142/96 (111) 93 08/10/19 10:53 20 137/88 Endotracheal Tube 70 08/10/19 10:30 75 20 137/88 (104) 93 08/10/19 10:00 19 143/87 Endotracheal Tube 70 08/10/19 10:00 74 19 143/87 (105) 94 Height (Feet): 6 Height (Inches): 1.00 Weight (Pounds): 210 HEENT: other - orally intubated Respiratory/Chest: other Cardiovascular: normal rate Abdomen: soft, non tender Extremities: other - edema Neurologic/Psychiatric: other - sedated Microbiology Date/Time Source Procedure Growth Status 08/09/19 14:00 Sputum Gram Stain - Final Complete 08/09/19 14:00 Sputum Sputum Culture - Final NORMAL UPPER RESPIRATORY FLY PRESENT Complete Laboratory Tests Test 08/10/19 11:50 08/11/19 04:05 Arterial Blood pH 7.379 (7.350-7.450) Arterial Blood Partial Pressure CO2 65.2 mmHg (35.0-45.0) *H Arterial Blood Partial Pressure O2 59.9 mmHg (75.0-100.0) L Arterial Blood HCO3 37.6 mmol/L (22.0-26.0) H Arterial Blood Oxygen Saturation 89.9 % (95-100) *L Arterial Blood Base Excess 9.4 (-2-2) *H [place] Test Positive White Blood Count 10.6 K/UL (4.8-10.8) Red Blood Count 5.95 M/UL (4.70-6.10) Hemoglobin 15.6 G/DL (14.2-18.0) Hematocrit 49.4 % (42.0-52.0) Mean Corpuscular Volume 83 FL (80-99) Mean Corpuscular Hemoglobin 26.2 PG (27.0-31.0) L Mean Corpuscular Hemoglobin Concent 31.6 G/DL (32.0-36.0) L Red Cell Distribution Width 13.5 % (11.6-14.8) Platelet Count 217 K/UL (150-450) Mean Platelet Volume 8.8 FL (6.5-10.1) Neutrophils (%) (Auto) % (45.0-75.0) Lymphocytes (%) (Auto) % (20.0-45.0) Monocytes (%) (Auto) % (1.0-10.0) Eosinophils (%) (Auto) % (0.0-3.0) Basophils (%) (Auto) % (0.0-2.0) Differential Total Cells Counted 100 Neutrophils % (Manual) 86 % (45-75) H Lymphocytes % (Manual) 6 % (20-45) L Monocytes % (Manual) 7 % (1-10) Eosinophils % (Manual) 1 % (0-3) Basophils % (Manual) 0 % (0-2) Band Neutrophils 0 % (0-8) Platelet Estimate Adequate Platelet Morphology Normal Red Blood Cell Morphology Normal D-Dimer 3.86 mg/L FEU (0.00-0.49) H Sodium Level 139 MMOL/L (136-145) Potassium Level 4.1 MMOL/L (3.5-5.1) Chloride Level 100 MMOL/L (98-107) Carbon Dioxide Level 33 MMOL/L (21-32) H Anion Gap 6 mmol/L (5-15) Blood Urea Nitrogen 53 mg/dL (7-18) H Creatinine 1.7 MG/DL (0.55-1.30) H Estimat Glomerular Filtration Rate 49.4 mL/min (>60) Glucose Level 97 MG/DL (74-106) Uric Acid 5.2 MG/DL (2.6-7.2) Calcium Level 9.1 MG/DL (8.5-10.1) Phosphorus Level 3.9 MG/DL (2.5-4.9) Magnesium Level 2.4 MG/DL (1.8-2.4) Total Bilirubin 0.4 MG/DL (0.2-1.0) Aspartate Amino Transf (AST/SGOT) 25 U/L (15-37) Alanine Aminotransferase (ALT/SGPT) 17 U/L (12-78) Alkaline Phosphatase 72 U/L (46-116) Troponin I 0.012 ng/mL (0.000-0.056) C-Reactive Protein, Quantitative 2.3 mg/dL (0.00-0.90) H Pro-B-Type Natriuretic Peptide 88 pg/mL (0-125) Total Protein 7.4 G/DL (6.4-8.2) Albumin 3.1 G/DL (3.4-5.0) L Globulin 4.3 g/dL Albumin/Globulin Ratio 0.7 (1.0-2.7) L Triglycerides Level 102 MG/DL (30-150) Current Medications Medications (Trade) Dose Ordered Sig/Judy Route PRN Reason Start Time Stop Time Status Last Admin Dose Admin Acetazolamide (Diamox) 125 mg TWICE A DAY NG 08/09/19 18:00 09/07/19 11:59 08/11/19 08:10 Azithromycin 500 mg/Dextrose 275 ml @ 275 mls/hr Q24HRS IV 08/06/19 21:00 08/12/19 21:59 08/10/19 21:02 Ceftriaxone Sodium 1 gm/ Dextrose 55 ml @ 110 mls/hr Q24H IVPB 08/06/19 20:00 08/13/19 19:59 08/10/19 19:22 Chlorhexidine Gluconate (Jessenia-Hex 2%) 1 applic DAILY@2000 TOPIC 08/06/19 20:00 11/04/19 19:59 08/10/19 19:20 Clonidine HCl (Catapres Tab) 0.1 mg Q4H PRN GT SBP>170 08/09/19 11:15 11/05/19 12:59 Dextrose (Dextrose 50%) 25 ml Q30M PRN IV Hypoglycemia 08/06/19 10:30 11/04/19 10:29 Dextrose (Dextrose 50%) 50 ml Q30M PRN IV Hypoglycemia 08/06/19 10:30 11/04/19 10:29 Enoxaparin Sodium (Lovenox) 40 mg Q24HRS@0900 SUBQ 08/06/19 11:00 11/04/19 10:59 08/11/19 08:11 Hydralazine HCl (Apresoline) 10 mg Q2H PRN IV SBP>170 08/07/19 13:00 11/05/19 12:59 Methylprednisolone Sodium Succinate (Solu-MEDROL) 40 mg EVERY 12 HOURS IVP 08/08/19 11:20 11/06/19 11:19 08/11/19 08:09 Pantoprazole (Protonix) 40 mg EVERY 12 HOURS IVP 08/06/19 10:00 09/05/19 09:59 08/11/19 08:10 Potassium Chloride (K-Dur) 40 meq DAILY NG 08/10/19 09:00 11/05/19 08:59 08/11/19 08:05 Propofol 100 ml @ 0 mls/hr Q24H IV 08/10/19 05:00 08/12/19 04:59 08/11/19 08:09 Jesús Rose MD Aug 11, 2019 10:00
--- NOTE | 2019-08-11 10:02 | Pulmonology Progress Note ---
Assessment/Plan Assessment/Plan IMPRESSION: 1. Decompensated congestive heart failure. 2. COPD with exacerbation 3. Respiratory failure. 4. Obesity. 5. Acute on chronic respiratory acidosis. DISCUSSION: Off lasix; continue Diamox On steroids Continue broad-spectrum antibiotics. Propofol for sedation. Keep vent on AC mode. Decrease FiO2 and PEEP as tolerated. Still on FiO2 70% and PEEP 8 I will follow. Will discuss with team regarding possibly initiating full dose anticoagulation for suspected PE. He has refractory hypoxemia and clear CXR. However ECHO is not suggestive of PE Mitchell Cassidy M.D. Subjective Interval Events: None new; remains intubated Constitutional: Reports: no symptoms HEENT: Repors: no symptoms Respiratory: Reports: no symptoms Cardiovascular: Reports: no symptoms Gastrointestinal/Abdominal: Reports: no symptoms Allergies: Coded Allergies: No Known Allergies (Unverified , 07/23/16) Objective Last 24 Hour Vital Signs Date Time Temp Pulse Resp B/P (MAP) Pulse Ox O2 Delivery O2 Flow Rate FiO2 08/11/19 09:30 81 27 70 08/11/19 08:30 77 20 149/100 (116) 95 08/11/19 08:09 20 141/86 Mechanical Ventilator 70 08/11/19 08:00 97.9 74 20 141/86 (104) 94 08/11/19 08:00 70 08/11/19 07:30 73 20 144/94 (111) 93 08/11/19 07:15 77 20 70 08/11/19 07:00 20 137/85 Mechanical Ventilator 70 08/11/19 07:00 71 20 137/85 (102) 94 08/11/19 06:30 73 20 08/11/19 06:00 20 141/91 Mechanical Ventilator 70 08/11/19 06:00 72 20 141/91 (108) 94 08/11/19 05:30 73 20 140/92 (108) 94 08/11/19 05:00 20 140/92 Mechanical Ventilator 70 08/11/19 05:00 74 20 141/93 (109) 95 08/11/19 04:30 74 20 137/87 (104) 93 08/11/19 04:00 78 08/11/19 04:00 70 08/11/19 04:00 Mechanical Ventilator Mechanical Ventilator 08/11/19 04:00 21 137/87 Mechanical Ventilator 70 08/11/19 04:00 98.4 76 20 145/87 (106) 94 08/11/19 03:30 71 20 70 08/11/19 03:30 78 21 135/93 (107) 93 08/11/19 03:00 87 21 140/89 (106) 92 08/11/19 02:58 19 147/96 Mechanical Ventilator 60.0 70 08/11/19 02:57 21 147/96 Mechanical Ventilator 70 08/11/19 02:30 76 17 139/94 (109) 95 08/11/19 02:00 77 20 147/96 (113) 97 08/11/19 02:00 19 147/96 Mechanical Ventilator 70 08/11/19 01:30 81 20 144/92 (109) 93 08/11/19 01:00 20 144/92 Mechanical Ventilator 70 08/11/19 01:00 78 19 149/99 (116) 93 08/11/19 00:47 79 19 151/100 (117) 93 08/11/19 00:00 Mechanical Ventilator Mechanical Ventilator 08/11/19 00:00 71 08/11/19 00:00 21 150/75 Mechanical Ventilator 70 08/11/19 00:00 98.0 91 22 176/109 (131) 91 08/11/19 00:00 70 08/10/19 23:30 87 21 156/99 (118) 92 08/10/19 23:00 21 156/99 Mechanical Ventilator 70 08/10/19 23:00 90 21 154/117 (129) 94 08/10/19 22:40 78 20 70 08/10/19 22:30 97 24 154/109 (124) 92 08/10/19 22:00 93 24 152/103 (119) 93 08/10/19 22:00 24 154/109 Mechanical Ventilator 70 08/10/19 21:30 80 21 146/95 (112) 95 08/10/19 21:00 79 22 139/89 (106) 94 08/10/19 21:00 21 146/95 Mechanical Ventilator 70 08/10/19 20:30 75 20 134/94 (107) 94 08/10/19 20:00 70 08/10/19 20:00 75 20 129/87 (101) 94 08/10/19 20:00 Mechanical Ventilator Mechanical Ventilator 08/10/19 20:00 21 134/94 Mechanical Ventilator 70 08/10/19 20:00 74 08/10/19 19:30 79 20 140/95 (110) 95 08/10/19 19:21 21 139/88 Endotracheal Tube 60.0 70 08/10/19 19:20 21 140/90 Mechanical Ventilator 70 08/10/19 19:15 77 20 70 08/10/19 19:00 81 23 139/88 (105) 93 08/10/19 18:00 87 21 159/97 (117) 92 08/10/19 18:00 21 159/97 Endotracheal Tube 70 08/10/19 17:30 75 20 129/85 (100) 94 08/10/19 17:05 75 21 70 08/10/19 17:00 74 20 127/81 (96) 95 08/10/19 17:00 20 127/81 Endotracheal Tube 70 08/10/19 16:30 81 22 129/81 (97) 94 08/10/19 16:00 Mechanical Ventilator Mechanical Ventilator 08/10/19 16:00 98.5 83 20 127/79 (95) 95 08/10/19 16:00 20 127/79 Endotracheal Tube 70 08/10/19 16:00 70 08/10/19 16:00 78 08/10/19 15:30 75 20 128/81 (97) 93 08/10/19 15:00 73 22 70 08/10/19 15:00 21 75/47 Endotracheal Tube 70 08/10/19 15:00 76 21 137/80 (99) 94 08/10/19 14:30 77 20 147/94 (111) 95 08/10/19 14:24 19 144/89 Endotracheal Tube 70 08/10/19 14:00 80 23 144/89 (107) 93 08/10/19 13:30 85 20 146/95 (112) 94 08/10/19 13:00 84 22 147/92 (110) 91 08/10/19 12:53 90 24 70 08/10/19 12:30 86 18 156/92 (113) 88 08/10/19 12:12 80 22 70 08/10/19 12:07 70 08/10/19 12:00 82 21 149/86 (107) 90 08/10/19 12:00 78 08/10/19 12:00 Mechanical Ventilator Mechanical Ventilator 08/10/19 11:55 19 149/96 Endotracheal Tube 70 08/10/19 11:30 98.7 78 20 149/96 (113) 93 08/10/19 11:00 20 142/96 Endotracheal Tube 70 08/10/19 11:00 75 20 142/96 (111) 93 08/10/19 10:53 20 137/88 Endotracheal Tube 70 08/10/19 10:30 75 20 137/88 (104) 93 Intake and Output 08/10/19 08/11/19 19:00 07:00 Intake Total 646.097 ml 954.010 ml Output Total 480 ml 505 ml Balance 166.097 ml 449.010 ml Intake Free Water 50 ml 100 ml IV Total 136.097 ml 494.010 ml Tube Feeding 360 ml 360 ml Other 100 ml Output Urine Total 480 ml 505 ml General Appearance: no acute distress HEENT: normocephalic Respiratory/Chest: chest wall non-tender, lungs clear Cardiovascular: normal peripheral pulses Abdomen: normal bowel sounds Microbiology Date/Time Source Procedure Growth Status 08/09/19 14:00 Sputum Gram Stain - Final Complete 08/09/19 14:00 Sputum Sputum Culture - Final NORMAL UPPER RESPIRATORY YANI PRESENT Complete Laboratory Tests 08/10/19 11:50: Arterial Blood pH 7.379, Arterial Blood Partial Pressure CO2 65.2*H, Arterial Blood Partial Pressure O2 59.9L, Arterial Blood HCO3 37.6H, Arterial Blood Oxygen Saturation 89.9*L, Arterial Blood Base Excess 9.4*H, [place] Test Positive 08/11/19 04:05: White Blood Count 10.6, Red Blood Count 5.95, Hemoglobin 15.6, Hematocrit 49.4, Mean Corpuscular Volume 83, Mean Corpuscular Hemoglobin 26.2L, Mean Corpuscular Hemoglobin Concent 31.6L, Red Cell Distribution Width 13.5, Platelet Count 217, Mean Platelet Volume 8.8, Neutrophils (%) (Auto) , Lymphocytes (%) (Auto) , Monocytes (%) (Auto) , Eosinophils (%) (Auto) , Basophils (%) (Auto) , Differential Total Cells Counted 100, Neutrophils % (Manual) 86H, Lymphocytes % (Manual) 6L, Monocytes % (Manual) 7, Eosinophils % (Manual) 1, Basophils % ( Manual) 0, Band Neutrophils 0, Platelet Estimate Adequate, Platelet Morphology Normal, Red Blood Cell Morphology Normal, D-Dimer 3.86H, Sodium Level 139, Potassium Level 4.1, Chloride Level 100, Carbon Dioxide Level 33H, Anion Gap 6, Blood Urea Nitrogen 53H, Creatinine 1.7H, Estimat Glomerular Filtration Rate 49.4, Glucose Level 97, Uric Acid 5.2, Calcium Level 9.1, Phosphorus Level 3.9, Magnesium Level 2.4, Total Bilirubin 0.4, Aspartate Amino Transf (AST/SGOT) 25, Alanine Aminotransferase (ALT/SGPT) 17, Alkaline Phosphatase 72, Troponin I 0.012, C-Reactive Protein, Quantitative 2.3H, Pro-B-Type Natriuretic Peptide 88 , Total Protein 7.4, Albumin 3.1L, Globulin 4.3, Albumin/Globulin Ratio 0.7L, Triglycerides Level 102 Current Medications Medications (Trade) Dose Ordered Sig/Judy Route PRN Reason Start Time Stop Time Status Last Admin Dose Admin Acetazolamide (Diamox) 125 mg TWICE A DAY NG 08/09/19 18:00 09/07/19 11:59 08/11/19 08:10 Azithromycin 500 mg/Dextrose 275 ml @ 275 mls/hr Q24HRS IV 08/06/19 21:00 08/12/19 21:59 08/10/19 21:02 Ceftriaxone Sodium 1 gm/ Dextrose 55 ml @ 110 mls/hr Q24H IVPB 08/06/19 20:00 08/13/19 19:59 08/10/19 19:22 Chlorhexidine Gluconate (Jessenia-Hex 2%) 1 applic DAILY@2000 TOPIC 08/06/19 20:00 11/04/19 19:59 08/10/19 19:20 Clonidine HCl (Catapres Tab) 0.1 mg Q4H PRN GT SBP>170 08/09/19 11:15 11/05/19 12:59 Dextrose (Dextrose 50%) 25 ml Q30M PRN IV Hypoglycemia 08/06/19 10:30 11/04/19 10:29 Dextrose (Dextrose 50%) 50 ml Q30M PRN IV Hypoglycemia 08/06/19 10:30 11/04/19 10:29 Enoxaparin Sodium (Lovenox) 40 mg Q24HRS@0900 SUBQ 08/06/19 11:00 11/04/19 10:59 08/11/19 08:11 Hydralazine HCl (Apresoline) 10 mg Q2H PRN IV SBP>170 08/07/19 13:00 11/05/19 12:59 Methylprednisolone Sodium Succinate (Solu-MEDROL) 40 mg EVERY 12 HOURS IVP 08/08/19 11:20 11/06/19 11:19 08/11/19 08:09 Pantoprazole (Protonix) 40 mg EVERY 12 HOURS IVP 08/06/19 10:00 09/05/19 09:59 08/11/19 08:10 Potassium Chloride (K-Dur) 40 meq DAILY NG 08/10/19 09:00 11/05/19 08:59 08/11/19 08:05 Propofol 100 ml @ 0 mls/hr Q24H IV 08/10/19 05:00 08/12/19 04:59 08/11/19 08:09 Mitchell Cassidy MD Aug 11, 2019 10:01
--- NOTE | 2019-08-11 12:11 | Nephrology Progress Note ---
Assessment/Plan Problem List: (1) CAITLIN (acute kidney injury) (2) Hypokalemia (3) Acute respiratory failure (4) CHF (congestive heart failure) (5) COPD exacerbation Assessment Acute respiratory failure requiring intubation and mechanical ventilation , currently on FiO2 of 70% CHF (congestive heart failure), exacerbation COPD exacerbation Lymphopenia Plan Will discontinue Diamox and potassium supplement patient remains on ventilator however remains hypoxic serum creatinine rising to 1.8 however stable for the past 48 hours Discussed with print production associate Dr. Cassidy Vent management per pulmonary NG tube Change feeding to Nepro Continue to monitor renal parameters IV Protonix Antibiotics Steroids is being continued 2D echocardiogram ejection fraction 55% Monitor urine output and renal parameters Monitor immunoresponse parameters Per orders Subjective ROS Limited/Unobtainable: Yes Objective Objective Last 24 Hour Vital Signs Date Time Temp Pulse Resp B/P (MAP) Pulse Ox O2 Delivery O2 Flow Rate FiO2 08/11/19 11:21 81 23 90 08/11/19 10:59 22 146/89 Mechanical Ventilator 70 08/11/19 10:30 79 21 146/89 (108) 93 08/11/19 10:00 21 151/88 Mechanical Ventilator 70 08/11/19 10:00 79 21 151/88 (109) 91 08/11/19 09:30 81 27 70 08/11/19 09:30 81 23 161/94 (116) 92 08/11/19 09:00 81 20 176/103 (127) 93 08/11/19 09:00 22 176/103 Mechanical Ventilator 70 08/11/19 08:30 77 20 149/100 (116) 95 08/11/19 08:09 20 141/86 Mechanical Ventilator 70 08/11/19 08:00 97.9 74 20 141/86 (104) 94 08/11/19 08:00 20 141/86 Mechanical Ventilator 70 08/11/19 08:00 Mechanical Ventilator Mechanical Ventilator 08/11/19 08:00 70 08/11/19 08:00 78 08/11/19 07:30 73 20 144/94 (111) 93 08/11/19 07:15 77 20 70 08/11/19 07:00 20 137/85 Mechanical Ventilator 70 08/11/19 07:00 71 20 137/85 (102) 94 08/11/19 06:30 73 20 08/11/19 06:00 20 141/91 Mechanical Ventilator 70 08/11/19 06:00 72 20 141/91 (108) 94 08/11/19 05:30 73 20 140/92 (108) 94 08/11/19 05:00 20 140/92 Mechanical Ventilator 70 08/11/19 05:00 74 20 141/93 (109) 95 08/11/19 04:30 74 20 137/87 (104) 93 08/11/19 04:00 78 08/11/19 04:00 70 08/11/19 04:00 Mechanical Ventilator Mechanical Ventilator 08/11/19 04:00 21 137/87 Mechanical Ventilator 70 08/11/19 04:00 98.4 76 20 145/87 (106) 94 08/11/19 03:30 71 20 70 08/11/19 03:30 78 21 135/93 (107) 93 08/11/19 03:00 87 21 140/89 (106) 92 08/11/19 02:58 19 147/96 Mechanical Ventilator 60.0 70 08/11/19 02:57 21 147/96 Mechanical Ventilator 70 08/11/19 02:30 76 17 139/94 (109) 95 08/11/19 02:00 77 20 147/96 (113) 97 08/11/19 02:00 19 147/96 Mechanical Ventilator 70 08/11/19 01:30 81 20 144/92 (109) 93 08/11/19 01:00 20 144/92 Mechanical Ventilator 70 08/11/19 01:00 78 19 149/99 (116) 93 08/11/19 00:47 79 19 151/100 (117) 93 08/11/19 00:00 Mechanical Ventilator Mechanical Ventilator 08/11/19 00:00 71 08/11/19 00:00 21 150/75 Mechanical Ventilator 70 08/11/19 00:00 98.0 91 22 176/109 (131) 91 08/11/19 00:00 70 08/10/19 23:30 87 21 156/99 (118) 92 08/10/19 23:00 21 156/99 Mechanical Ventilator 70 08/10/19 23:00 90 21 154/117 (129) 94 08/10/19 22:40 78 20 70 08/10/19 22:30 97 24 154/109 (124) 92 08/10/19 22:00 93 24 152/103 (119) 93 08/10/19 22:00 24 154/109 Mechanical Ventilator 70 08/10/19 21:30 80 21 146/95 (112) 95 08/10/19 21:00 79 22 139/89 (106) 94 08/10/19 21:00 21 146/95 Mechanical Ventilator 70 08/10/19 20:30 75 20 134/94 (107) 94 08/10/19 20:00 70 08/10/19 20:00 75 20 129/87 (101) 94 08/10/19 20:00 Mechanical Ventilator Mechanical Ventilator 08/10/19 20:00 21 134/94 Mechanical Ventilator 70 08/10/19 20:00 74 08/10/19 19:30 79 20 140/95 (110) 95 08/10/19 19:21 21 139/88 Endotracheal Tube 60.0 70 08/10/19 19:20 21 140/90 Mechanical Ventilator 70 08/10/19 19:15 77 20 70 08/10/19 19:00 81 23 139/88 (105) 93 08/10/19 18:00 87 21 159/97 (117) 92 08/10/19 18:00 21 159/97 Endotracheal Tube 70 08/10/19 17:30 75 20 129/85 (100) 94 08/10/19 17:05 75 21 70 08/10/19 17:00 74 20 127/81 (96) 95 08/10/19 17:00 20 127/81 Endotracheal Tube 70 08/10/19 16:30 81 22 129/81 (97) 94 08/10/19 16:00 Mechanical Ventilator Mechanical Ventilator 08/10/19 16:00 98.5 83 20 127/79 (95) 95 08/10/19 16:00 20 127/79 Endotracheal Tube 70 08/10/19 16:00 70 08/10/19 16:00 78 08/10/19 15:30 75 20 128/81 (97) 93 08/10/19 15:00 73 22 70 08/10/19 15:00 21 75/47 Endotracheal Tube 70 08/10/19 15:00 76 21 137/80 (99) 94 08/10/19 14:30 77 20 147/94 (111) 95 08/10/19 14:24 19 144/89 Endotracheal Tube 70 08/10/19 14:00 80 23 144/89 (107) 93 08/10/19 13:30 85 20 146/95 (112) 94 08/10/19 13:00 84 22 147/92 (110) 91 08/10/19 12:53 90 24 70 08/10/19 12:30 86 18 156/92 (113) 88 08/10/19 12:12 80 22 70 Intake and Output 08/10/19 08/11/19 19:00 07:00 Intake Total 646.097 ml 954.010 ml Output Total 480 ml 505 ml Balance 166.097 ml 449.010 ml Intake Free Water 50 ml 100 ml IV Total 136.097 ml 494.010 ml Tube Feeding 360 ml 360 ml Other 100 ml Output Urine Total 480 ml 505 ml Current Medications Medications (Trade) Dose Ordered Sig/Judy Route PRN Reason Start Time Stop Time Status Last Admin Dose Admin Acetazolamide (Diamox) 125 mg TWICE A DAY NG 08/09/19 18:00 09/07/19 11:59 08/11/19 08:10 Azithromycin 500 mg/Dextrose 275 ml @ 275 mls/hr Q24HRS IV 08/06/19 21:00 08/12/19 21:59 08/10/19 21:02 Ceftriaxone Sodium 1 gm/ Dextrose 55 ml @ 110 mls/hr Q24H IVPB 08/06/19 20:00 08/13/19 19:59 08/10/19 19:22 Chlorhexidine Gluconate (Jessenia-Hex 2%) 1 applic DAILY@2000 TOPIC 08/06/19 20:00 11/04/19 19:59 08/10/19 19:20 Clonidine HCl (Catapres Tab) 0.1 mg Q4H PRN GT SBP>170 08/09/19 11:15 11/05/19 12:59 Dextrose (Dextrose 50%) 25 ml Q30M PRN IV Hypoglycemia 08/06/19 10:30 11/04/19 10:29 Dextrose (Dextrose 50%) 50 ml Q30M PRN IV Hypoglycemia 08/06/19 10:30 11/04/19 10:29 Enoxaparin Sodium (Lovenox) 100 mg EVERY 12 HOURS SUBQ 08/11/19 21:00 11/09/19 20:59 Hydralazine HCl (Apresoline) 10 mg Q2H PRN IV SBP>170 08/07/19 13:00 11/05/19 12:59 Methylprednisolone Sodium Succinate (Solu-MEDROL) 40 mg EVERY 12 HOURS IVP 08/08/19 11:20 11/06/19 11:19 08/11/19 08:09 Pantoprazole (Protonix) 40 mg EVERY 12 HOURS IVP 08/06/19 10:00 09/05/19 09:59 08/11/19 08:10 Potassium Chloride (K-Dur) 40 meq DAILY NG 08/10/19 09:00 11/05/19 08:59 08/11/19 08:05 Propofol 100 ml @ 0 mls/hr Q24H IV 08/10/19 05:00 08/12/19 04:59 08/11/19 08:09 Laboratory Tests 08/11/19 04:05: White Blood Count 10.6, Red Blood Count 5.95, Hemoglobin 15.6, Hematocrit 49.4, Mean Corpuscular Volume 83, Mean Corpuscular Hemoglobin 26.2L, Mean Corpuscular Hemoglobin Concent 31.6L, Red Cell Distribution Width 13.5, Platelet Count 217, Mean Platelet Volume 8.8, Neutrophils (%) (Auto) , Lymphocytes (%) (Auto) , Monocytes (%) (Auto) , Eosinophils (%) (Auto) , Basophils (%) (Auto) , Differential Total Cells Counted 100, Neutrophils % (Manual) 86H, Lymphocytes % (Manual) 6L, Monocytes % (Manual) 7, Eosinophils % (Manual) 1, Basophils % ( Manual) 0, Band Neutrophils 0, Platelet Estimate Adequate, Platelet Morphology Normal, Red Blood Cell Morphology Normal, D-Dimer 3.86H, Sodium Level 139, Potassium Level 4.1, Chloride Level 100, Carbon Dioxide Level 33H, Anion Gap 6, Blood Urea Nitrogen 53H, Creatinine 1.7H, Estimat Glomerular Filtration Rate 49.4, Glucose Level 97, Uric Acid 5.2, Calcium Level 9.1, Phosphorus Level 3.9, Magnesium Level 2.4, Total Bilirubin 0.4, Aspartate Amino Transf (AST/SGOT) 25, Alanine Aminotransferase (ALT/SGPT) 17, Alkaline Phosphatase 72, Troponin I 0.012, C-Reactive Protein, Quantitative 2.3H, Pro-B-Type Natriuretic Peptide 88 , Total Protein 7.4, Albumin 3.1L, Globulin 4.3, Albumin/Globulin Ratio 0.7L, Triglycerides Level 102 Height (Feet): 6 Height (Inches): 1.00 Weight (Pounds): 210 General Appearance: no apparent distress Cardiovascular: normal rate Respiratory/Chest: decreased breath sounds Abdomen: distended Ovi Byrnes MD Aug 11, 2019 12:11
--- NOTE | 2019-08-11 14:35 | Cardiac Electrophysiology PN ---
Assessment/Plan Assessment/Plan 1. Respiratory failure, intubated on the vent due to combination of CHF and COPD. His BNP is more than 5000. EF 55% with nl PAP. Lasix drip DCed as renal failure getting worse Ruled out for HI. JAKE Cassidy. Started on Lovenox 100 bid for possible PE. 2. PNA Copvid is negative, under management of Dr. Cassidy on Solumedrol, ceftriaxone and azithromycin. 3. ARF. 4. COPD. DW RN Subjective Subjective In ICU on the vent on 90% Fio2 . Covid test negative. ECHO Nl EF. On Diamox and Propofol. On 80% Fio2 on the Vent Objective Last 24 Hour Vital Signs Date Time Temp Pulse Resp B/P (MAP) Pulse Ox O2 Delivery O2 Flow Rate FiO2 08/11/19 11:21 81 23 90 08/11/19 10:59 22 146/89 Mechanical Ventilator 70 08/11/19 10:30 79 21 146/89 (108) 93 08/11/19 10:00 21 151/88 Mechanical Ventilator 70 08/11/19 10:00 79 21 151/88 (109) 91 08/11/19 09:30 81 27 70 08/11/19 09:30 81 23 161/94 (116) 92 08/11/19 09:00 81 20 176/103 (127) 93 08/11/19 09:00 22 176/103 Mechanical Ventilator 70 08/11/19 08:30 77 20 149/100 (116) 95 08/11/19 08:09 20 141/86 Mechanical Ventilator 70 08/11/19 08:00 97.9 74 20 141/86 (104) 94 08/11/19 08:00 20 141/86 Mechanical Ventilator 70 08/11/19 08:00 Mechanical Ventilator Mechanical Ventilator 08/11/19 08:00 70 08/11/19 08:00 78 08/11/19 07:30 73 20 144/94 (111) 93 08/11/19 07:15 77 20 70 08/11/19 07:00 20 137/85 Mechanical Ventilator 70 08/11/19 07:00 71 20 137/85 (102) 94 08/11/19 06:30 73 20 08/11/19 06:00 20 141/91 Mechanical Ventilator 70 08/11/19 06:00 72 20 141/91 (108) 94 08/11/19 05:30 73 20 140/92 (108) 94 08/11/19 05:00 20 140/92 Mechanical Ventilator 70 08/11/19 05:00 74 20 141/93 (109) 95 08/11/19 04:30 74 20 137/87 (104) 93 08/11/19 04:00 78 08/11/19 04:00 70 08/11/19 04:00 Mechanical Ventilator Mechanical Ventilator 08/11/19 04:00 21 137/87 Mechanical Ventilator 70 08/11/19 04:00 98.4 76 20 145/87 (106) 94 08/11/19 03:30 71 20 70 08/11/19 03:30 78 21 135/93 (107) 93 08/11/19 03:00 87 21 140/89 (106) 92 08/11/19 02:58 19 147/96 Mechanical Ventilator 60.0 70 08/11/19 02:57 21 147/96 Mechanical Ventilator 70 08/11/19 02:30 76 17 139/94 (109) 95 08/11/19 02:00 77 20 147/96 (113) 97 08/11/19 02:00 19 147/96 Mechanical Ventilator 70 08/11/19 01:30 81 20 144/92 (109) 93 08/11/19 01:00 20 144/92 Mechanical Ventilator 70 08/11/19 01:00 78 19 149/99 (116) 93 08/11/19 00:47 79 19 151/100 (117) 93 08/11/19 00:00 Mechanical Ventilator Mechanical Ventilator 08/11/19 00:00 71 08/11/19 00:00 21 150/75 Mechanical Ventilator 70 08/11/19 00:00 98.0 91 22 176/109 (131) 91 08/11/19 00:00 70 08/10/19 23:30 87 21 156/99 (118) 92 08/10/19 23:00 21 156/99 Mechanical Ventilator 70 08/10/19 23:00 90 21 154/117 (129) 94 08/10/19 22:40 78 20 70 08/10/19 22:30 97 24 154/109 (124) 92 08/10/19 22:00 93 24 152/103 (119) 93 08/10/19 22:00 24 154/109 Mechanical Ventilator 70 08/10/19 21:30 80 21 146/95 (112) 95 08/10/19 21:00 79 22 139/89 (106) 94 08/10/19 21:00 21 146/95 Mechanical Ventilator 70 08/10/19 20:30 75 20 134/94 (107) 94 08/10/19 20:00 70 08/10/19 20:00 75 20 129/87 (101) 94 08/10/19 20:00 Mechanical Ventilator Mechanical Ventilator 08/10/19 20:00 21 134/94 Mechanical Ventilator 70 08/10/19 20:00 74 08/10/19 19:30 79 20 140/95 (110) 95 08/10/19 19:21 21 139/88 Endotracheal Tube 60.0 70 08/10/19 19:20 21 140/90 Mechanical Ventilator 70 08/10/19 19:15 77 20 70 08/10/19 19:00 81 23 139/88 (105) 93 08/10/19 18:00 87 21 159/97 (117) 92 08/10/19 18:00 21 159/97 Endotracheal Tube 70 08/10/19 17:30 75 20 129/85 (100) 94 08/10/19 17:05 75 21 70 08/10/19 17:00 74 20 127/81 (96) 95 08/10/19 17:00 20 127/81 Endotracheal Tube 70 08/10/19 16:30 81 22 129/81 (97) 94 08/10/19 16:00 Mechanical Ventilator Mechanical Ventilator 08/10/19 16:00 98.5 83 20 127/79 (95) 95 08/10/19 16:00 20 127/79 Endotracheal Tube 70 08/10/19 16:00 70 08/10/19 16:00 78 08/10/19 15:30 75 20 128/81 (97) 93 08/10/19 15:00 73 22 70 08/10/19 15:00 21 75/47 Endotracheal Tube 70 08/10/19 15:00 76 21 137/80 (99) 94 Intake and Output 08/10/19 08/11/19 19:00 07:00 Intake Total 646.097 ml 954.010 ml Output Total 480 ml 505 ml Balance 166.097 ml 449.010 ml Intake Free Water 50 ml 100 ml IV Total 136.097 ml 494.010 ml Tube Feeding 360 ml 360 ml Other 100 ml Output Urine Total 480 ml 505 ml Laboratory Tests Test 08/11/19 04:05 White Blood Count 10.6 K/UL (4.8-10.8) Red Blood Count 5.95 M/UL (4.70-6.10) Hemoglobin 15.6 G/DL (14.2-18.0) Hematocrit 49.4 % (42.0-52.0) Mean Corpuscular Volume 83 FL (80-99) Mean Corpuscular Hemoglobin 26.2 PG (27.0-31.0) L Mean Corpuscular Hemoglobin Concent 31.6 G/DL (32.0-36.0) L Red Cell Distribution Width 13.5 % (11.6-14.8) Platelet Count 217 K/UL (150-450) Mean Platelet Volume 8.8 FL (6.5-10.1) Neutrophils (%) (Auto) % (45.0-75.0) Lymphocytes (%) (Auto) % (20.0-45.0) Monocytes (%) (Auto) % (1.0-10.0) Eosinophils (%) (Auto) % (0.0-3.0) Basophils (%) (Auto) % (0.0-2.0) Differential Total Cells Counted 100 Neutrophils % (Manual) 86 % (45-75) H Lymphocytes % (Manual) 6 % (20-45) L Monocytes % (Manual) 7 % (1-10) Eosinophils % (Manual) 1 % (0-3) Basophils % (Manual) 0 % (0-2) Band Neutrophils 0 % (0-8) Platelet Estimate Adequate Platelet Morphology Normal Red Blood Cell Morphology Normal D-Dimer 3.86 mg/L FEU (0.00-0.49) H Sodium Level 139 MMOL/L (136-145) Potassium Level 4.1 MMOL/L (3.5-5.1) Chloride Level 100 MMOL/L (98-107) Carbon Dioxide Level 33 MMOL/L (21-32) H Anion Gap 6 mmol/L (5-15) Blood Urea Nitrogen 53 mg/dL (7-18) H Creatinine 1.7 MG/DL (0.55-1.30) H Estimat Glomerular Filtration Rate 49.4 mL/min (>60) Glucose Level 97 MG/DL (74-106) Uric Acid 5.2 MG/DL (2.6-7.2) Calcium Level 9.1 MG/DL (8.5-10.1) Phosphorus Level 3.9 MG/DL (2.5-4.9) Magnesium Level 2.4 MG/DL (1.8-2.4) Total Bilirubin 0.4 MG/DL (0.2-1.0) Aspartate Amino Transf (AST/SGOT) 25 U/L (15-37) Alanine Aminotransferase (ALT/SGPT) 17 U/L (12-78) Alkaline Phosphatase 72 U/L (46-116) Troponin I 0.012 ng/mL (0.000-0.056) C-Reactive Protein, Quantitative 2.3 mg/dL (0.00-0.90) H Pro-B-Type Natriuretic Peptide 88 pg/mL (0-125) Total Protein 7.4 G/DL (6.4-8.2) Albumin 3.1 G/DL (3.4-5.0) L Globulin 4.3 g/dL Albumin/Globulin Ratio 0.7 (1.0-2.7) L Triglycerides Level 102 MG/DL (30-150) Microbiology Date/Time Source Procedure Growth Status 08/09/19 14:00 Sputum Gram Stain - Final Complete 08/09/19 14:00 Sputum Sputum Culture - Final NORMAL UPPER RESPIRATORY YANI PRESENT Complete Objective HEAD AND NECK: No JVD. Orally intubated LUNGS: Coarse rhonchi bilaterally. CARDIOVASCULAR: Shows regular S1 and S2 with no gallop or murmur. ABDOMEN: Soft. EXTREMITIES: He has 1+ pitting edema. Livan Parker MD Aug 11, 2019 14:35
[2019-08-11] MEDS: Dyna-Hex 2% Top Sol 2oz TOPIC SCH (20:45)
[2019-08-11] MEDS: Azithromycin 500 MG in D5W 275 ML IV SCH (20:47)
[2019-08-11] MEDS: cefTRIAXone 1 GM in D5W 55 ML IVPB SCH (20:51)
[2019-08-11] MEDS: Enoxaparin 100mg Inj SUBQ SCH (20:57)
--- NOTE | 2019-08-11 21:27 | General Progress Note ---
Assessment/Plan Problem List: (1) Respiratory failure ICD Codes: J96.90 - Respiratory failure, unspecified, unspecified whether with hypoxia or hypercapnia SNOMED: 421783282 (2) CHF exacerbation ICD Codes: I50.9 - Heart failure, unspecified SNOMED: 453969772, [id number] (3) COPD exacerbation ICD Codes: J44.1 - Chronic obstructive pulmonary disease with (acute) exacerbation SNOMED: 779051817 (4) Acute respiratory failure ICD Codes: J96.00 - Acute respiratory failure, unspecified whether with hypoxia or hypercapnia SNOMED: 77215518 (5) ATN (acute tubular necrosis) ICD Codes: N17.0 - Acute kidney failure with tubular necrosis SNOMED: 67198841 (6) Nephrotic syndrome ICD Codes: N04.9 - Nephrotic syndrome with unspecified morphologic changes SNOMED: 92841556 Status: progressing, unchanged Assessment/Plan: resp failure sepsis pna intubated chf s/p pressors edema not improving abx per id poor prognosis Subjective ROS Limited/Unobtainable: Yes Allergies: Coded Allergies: No Known Allergies (Unverified , 07/23/16) Objective Last 24 Hour Vital Signs Date Time Temp Pulse Resp B/P (MAP) Pulse Ox O2 Delivery O2 Flow Rate FiO2 08/11/19 19:58 77 22 90 08/11/19 19:00 85 24 158/100 (119) 93 08/11/19 18:56 29 178/145 Non-Rebreather 15.0 100 08/11/19 18:30 86 21 178/145 (156) 94 08/11/19 18:00 75 21 140/96 (111) 95 08/11/19 18:00 22 140/96 Mechanical Ventilator 90 08/11/19 17:38 76 23 90 08/11/19 17:30 77 20 145/94 (111) 94 08/11/19 17:00 22 154/95 Mechanical Ventilator 90 08/11/19 17:00 79 24 154/95 (114) 97 08/11/19 16:34 24 169/99 Mechanical Ventilator 90 08/11/19 16:30 78 27 169/99 (122) 94 08/11/19 16:00 Mechanical Ventilator Mechanical Ventilator 08/11/19 16:00 98.0 72 21 128/80 (96) 93 4/13/20 16:00 21 128/80 Mechanical Ventilator 90 08/11/19 16:00 90 08/11/19 16:00 83 08/11/19 15:30 73 22 138/87 (104) 93 08/11/19 15:00 75 21 137/85 (102) 93 08/11/19 15:00 22 137/85 Mechanical Ventilator 90 08/11/19 14:52 73 20 90 08/11/19 14:30 77 22 137/82 (100) 92 08/11/19 14:00 79 23 147/87 (107) 92 08/11/19 14:00 22 147/87 Mechanical Ventilator 90 08/11/19 13:30 87 18 166/99 (121) 95 08/11/19 13:19 81 22 90 08/11/19 13:00 80 21 137/84 (101) 94 08/11/19 13:00 23 137/84 Mechanical Ventilator 90 08/11/19 12:30 78 21 141/88 (105) 93 08/11/19 12:00 90 08/11/19 12:00 99.4 79 23 143/87 (105) 94 08/11/19 12:00 20 143/87 Mechanical Ventilator 90 08/11/19 12:00 Mechanical Ventilator Mechanical Ventilator 08/11/19 12:00 79 08/11/19 11:30 81 25 144/88 (106) 92 08/11/19 11:21 81 23 90 08/11/19 11:00 79 23 147/90 (109) 92 08/11/19 10:59 22 146/89 Mechanical Ventilator 70 08/11/19 10:30 79 21 146/89 (108) 93 08/11/19 10:00 21 151/88 Mechanical Ventilator 70 08/11/19 10:00 79 21 151/88 (109) 91 08/11/19 09:30 81 27 70 08/11/19 09:30 81 23 161/94 (116) 92 08/11/19 09:00 81 20 176/103 (127) 93 08/11/19 09:00 22 176/103 Mechanical Ventilator 70 08/11/19 08:30 77 20 149/100 (116) 95 08/11/19 08:09 20 141/86 Mechanical Ventilator 70 08/11/19 08:00 97.9 74 20 141/86 (104) 94 08/11/19 08:00 20 141/86 Mechanical Ventilator 70 08/11/19 08:00 Mechanical Ventilator Mechanical Ventilator 08/11/19 08:00 70 08/11/19 08:00 78 08/11/19 07:30 73 20 144/94 (111) 93 08/11/19 07:15 77 20 70 08/11/19 07:00 20 137/85 Mechanical Ventilator 70 08/11/19 07:00 71 20 137/85 (102) 94 08/11/19 06:30 73 20 08/11/19 06:00 20 141/91 Mechanical Ventilator 70 08/11/19 06:00 72 20 141/91 (108) 94 08/11/19 05:30 73 20 140/92 (108) 94 08/11/19 05:00 20 140/92 Mechanical Ventilator 70 08/11/19 05:00 74 20 141/93 (109) 95 08/11/19 04:30 74 20 137/87 (104) 93 08/11/19 04:00 78 08/11/19 04:00 70 08/11/19 04:00 Mechanical Ventilator Mechanical Ventilator 08/11/19 04:00 21 137/87 Mechanical Ventilator 70 08/11/19 04:00 98.4 76 20 145/87 (106) 94 08/11/19 03:30 71 20 70 08/11/19 03:30 78 21 135/93 (107) 93 08/11/19 03:00 87 21 140/89 (106) 92 08/11/19 02:58 19 147/96 Mechanical Ventilator 60.0 70 08/11/19 02:57 21 147/96 Mechanical Ventilator 70 08/11/19 02:30 76 17 139/94 (109) 95 08/11/19 02:00 77 20 147/96 (113) 97 08/11/19 02:00 19 147/96 Mechanical Ventilator 70 08/11/19 01:30 81 20 144/92 (109) 93 08/11/19 01:00 20 144/92 Mechanical Ventilator 70 08/11/19 01:00 78 19 149/99 (116) 93 08/11/19 00:47 79 19 151/100 (117) 93 08/11/19 00:00 Mechanical Ventilator Mechanical Ventilator 08/11/19 00:00 71 08/11/19 00:00 21 150/75 Mechanical Ventilator 70 08/11/19 00:00 98.0 91 22 176/109 (131) 91 08/11/19 00:00 70 08/10/19 23:30 87 21 156/99 (118) 92 08/10/19 23:00 21 156/99 Mechanical Ventilator 70 08/10/19 23:00 90 21 154/117 (129) 94 08/10/19 22:40 78 20 70 08/10/19 22:30 97 24 154/109 (124) 92 08/10/19 22:00 93 24 152/103 (119) 93 08/10/19 22:00 24 154/109 Mechanical Ventilator 70 08/10/19 21:30 80 21 146/95 (112) 95 Intake and Output 08/10/19 08/11/19 19:00 07:00 Intake Total 646.097 ml 954.010 ml Output Total 480 ml 505 ml Balance 166.097 ml 449.010 ml Intake Free Water 50 ml 100 ml IV Total 136.097 ml 494.010 ml Tube Feeding 360 ml 360 ml Other 100 ml Output Urine Total 480 ml 505 ml Laboratory Tests 08/11/19 04:05: White Blood Count 10.6, Red Blood Count 5.95, Hemoglobin 15.6, Hematocrit 49.4, Mean Corpuscular Volume 83, Mean Corpuscular Hemoglobin 26.2L, Mean Corpuscular Hemoglobin Concent 31.6L, Red Cell Distribution Width 13.5, Platelet Count 217, Mean Platelet Volume 8.8, Neutrophils (%) (Auto) , Lymphocytes (%) (Auto) , Monocytes (%) (Auto) , Eosinophils (%) (Auto) , Basophils (%) (Auto) , Differential Total Cells Counted 100, Neutrophils % (Manual) 86H, Lymphocytes % (Manual) 6L, Monocytes % (Manual) 7, Eosinophils % (Manual) 1, Basophils % ( Manual) 0, Band Neutrophils 0, Platelet Estimate Adequate, Platelet Morphology Normal, Red Blood Cell Morphology Normal, D-Dimer 3.86H, Sodium Level 139, Potassium Level 4.1, Chloride Level 100, Carbon Dioxide Level 33H, Anion Gap 6, Blood Urea Nitrogen 53H, Creatinine 1.7H, Estimat Glomerular Filtration Rate 49.4, Glucose Level 97, Uric Acid 5.2, Calcium Level 9.1, Phosphorus Level 3.9, Magnesium Level 2.4, Total Bilirubin 0.4, Aspartate Amino Transf (AST/SGOT) 25, Alanine Aminotransferase (ALT/SGPT) 17, Alkaline Phosphatase 72, Troponin I 0.012, C-Reactive Protein, Quantitative 2.3H, Pro-B-Type Natriuretic Peptide 88 , Total Protein 7.4, Albumin 3.1L, Globulin 4.3, Albumin/Globulin Ratio 0.7L, Triglycerides Level 102 Height (Feet): 6 Height (Inches): 1.00 Weight (Pounds): 210 Santi Ortez MD Aug 11, 2019 21:27
[2019-08-12] VITALS (33 sets, daily range): BP systolic 115–160; BP diastolic 56–117
--- NOTE | 2019-08-12 09:16 | Nephrology Progress Note ---
Assessment/Plan Problem List: (1) CAITLIN (acute kidney injury) (2) Hypokalemia (3) Acute respiratory failure (4) CHF (congestive heart failure) (5) COPD exacerbation Assessment Acute respiratory failure requiring intubation and mechanical ventilation , currently on FiO2 of 70% CHF (congestive heart failure), exacerbation COPD exacerbation Lymphopenia Plan Check labs tomorrow Will discontinue Diamox and potassium supplement serum creatinine rising to 1.8 however stable for the past 48 hours Discussed with metal melter Dr. Cassidy Vent management per pulmonary NG tube Change feeding to Nepro Continue to monitor renal parameters IV Protonix Antibiotics Steroids is being continued 2D echocardiogram ejection fraction 55% Monitor urine output and renal parameters Monitor immunoresponse parameters Per orders Subjective ROS Limited/Unobtainable: Yes Objective Objective Last 24 Hour Vital Signs Date Time Temp Pulse Resp B/P (MAP) Pulse Ox O2 Delivery O2 Flow Rate FiO2 08/12/19 08:00 Mechanical Ventilator Mechanical Ventilator 08/12/19 08:00 100 08/12/19 07:34 87 20 100 08/12/19 07:30 78 20 127/68 (87) 94 08/12/19 07:00 78 20 133/76 (95) 94 08/12/19 06:52 80 20 08/12/19 06:30 80 21 133/76 (95) 94 08/12/19 06:00 81 23 124/84 (97) 93 08/12/19 06:00 20 126/60 Mechanical Ventilator 100 08/12/19 05:30 84 21 128/76 (93) 92 08/12/19 05:00 86 22 132/74 (93) 92 08/12/19 05:00 20 128/60 Mechanical Ventilator 100 08/12/19 04:33 21 135/90 100 08/12/19 04:30 83 18 115/73 (87) 92 08/12/19 04:00 98.8 83 20 135/90 (105) 92 08/12/19 04:00 80 08/12/19 04:00 20 124/86 Mechanical Ventilator 100 08/12/19 04:00 100 08/12/19 04:00 Mechanical Ventilator Mechanical Ventilator 08/12/19 03:39 84 20 100 08/12/19 03:30 89 20 124/88 (100) 92 08/12/19 03:00 88 21 127/85 (99) 91 08/12/19 03:00 20 145/56 Mechanical Ventilator 100 08/12/19 02:30 95 23 132/83 (99) 92 08/12/19 02:00 20 126/56 Mechanical Ventilator 100 08/12/19 02:00 96 21 126/56 (79) 89 08/12/19 01:30 99 21 127/98 (108) 89 08/12/19 01:00 102 24 137/97 (110) 89 08/12/19 01:00 22 130/56 Mechanical Ventilator 08/12/19 00:30 105 24 130/88 (102) 89 08/12/19 00:30 105 24 130/88 (102) 89 08/12/19 00:00 98.4 112 23 143/100 (114) 90 08/12/19 00:00 18 124/86 Mechanical Ventilator 100 08/12/19 00:00 Mechanical Ventilator Mechanical Ventilator 08/12/19 00:00 83 08/12/19 00:00 90 08/11/19 23:38 123 24 158/88 (111) 92 08/11/19 23:30 134 25 210/115 (146) 93 08/11/19 23:25 34 137/100 Mechanical Ventilator 90 08/11/19 23:16 104 25 100 08/11/19 23:00 23 124/24 Mechanical Ventilator 100.0 08/11/19 23:00 85 21 138/109 (119) 92 08/11/19 22:30 87 24 156/100 (118) 93 08/11/19 22:00 18 124/64 Mechanical Ventilator 20.0 08/11/19 22:00 82 22 148/94 (112) 93 08/11/19 21:30 78 19 155/101 (119) 94 08/11/19 21:00 20 126/45 Mechanical Ventilator 100 08/11/19 21:00 77 21 148/96 (113) 97 08/11/19 20:30 77 25 158/99 (118) 96 08/11/19 20:00 90 08/11/19 20:00 18 126/56 Mechanical Ventilator 100 08/11/19 20:00 Mechanical Ventilator Mechanical Ventilator 08/11/19 20:00 98.6 78 25 153/98 (116) 96 08/11/19 20:00 64 08/11/19 19:58 77 22 90 08/11/19 19:00 85 24 158/100 (119) 93 08/11/19 18:56 29 178/145 Non-Rebreather 15.0 100 08/11/19 18:30 86 21 178/145 (156) 94 08/11/19 18:00 75 21 140/96 (111) 95 08/11/19 18:00 22 140/96 Mechanical Ventilator 90 08/11/19 17:38 76 23 90 08/11/19 17:30 77 20 145/94 (111) 94 08/11/19 17:00 22 154/95 Mechanical Ventilator 90 08/11/19 17:00 79 24 154/95 (114) 97 08/11/19 16:34 24 169/99 Mechanical Ventilator 90 08/11/19 16:30 78 27 169/99 (122) 94 08/11/19 16:00 Mechanical Ventilator Mechanical Ventilator 08/11/19 16:00 98.0 72 21 128/80 (96) 93 08/11/19 16:00 21 128/80 Mechanical Ventilator 90 08/11/19 16:00 90 08/11/19 16:00 83 08/11/19 15:30 73 22 138/87 (104) 93 08/11/19 15:00 75 21 137/85 (102) 93 08/11/19 15:00 22 137/85 Mechanical Ventilator 90 08/11/19 14:52 73 20 90 08/11/19 14:30 77 22 137/82 (100) 92 08/11/19 14:00 79 23 147/87 (107) 92 08/11/19 14:00 22 147/87 Mechanical Ventilator 90 08/11/19 13:30 87 18 166/99 (121) 95 08/11/19 13:19 81 22 90 08/11/19 13:00 80 21 137/84 (101) 94 08/11/19 13:00 23 137/84 Mechanical Ventilator 90 08/11/19 12:30 78 21 141/88 (105) 93 08/11/19 12:00 90 08/11/19 12:00 99.4 79 23 143/87 (105) 94 08/11/19 12:00 20 143/87 Mechanical Ventilator 90 08/11/19 12:00 Mechanical Ventilator Mechanical Ventilator 08/11/19 12:00 79 4/13/20 11:30 81 25 144/88 (106) 92 08/11/19 11:21 81 23 90 08/11/19 11:00 79 23 147/90 (109) 92 08/11/19 10:59 22 146/89 Mechanical Ventilator 70 08/11/19 10:30 79 21 146/89 (108) 93 08/11/19 10:00 21 151/88 Mechanical Ventilator 70 08/11/19 10:00 79 21 151/88 (109) 91 08/11/19 09:30 81 27 70 08/11/19 09:30 81 23 161/94 (116) 92 Intake and Output 08/11/19 08/12/19 19:00 07:00 Intake Total 559.027 ml 781.089 ml Output Total 550 ml 480 ml Balance 9.027 ml 301.089 ml Intake Free Water 40 ml IV Total 159.027 ml 481.089 ml Tube Feeding 360 ml 300 ml Output Urine Total 550 ml 480 ml No labs for today Height (Feet): 6 Height (Inches): 1.00 Weight (Pounds): 230 General Appearance: no apparent distress EENT: other - Remains intubated when seen in the morning however now on nasal cannula Cardiovascular: normal rate Respiratory/Chest: decreased breath sounds Abdomen: distended Ovi Byrnes MD Aug 12, 2019 09:16
[2019-08-12] MEDS: Solu-MEDROL 40mg Inj IVP SCH (09:21)
[2019-08-12] MEDS: Pantoprazole Inj IVP SCH (09:21)
[2019-08-12] MEDS: Enoxaparin 100mg Inj SUBQ SCH ×2 (09:22→20:44)
--- NOTE | 2019-08-12 10:53 | Infectious Diseases Prog Note ---
Assessment/Plan Assessment/Plan IMPRESSION: COPD exacerbation, Hypercapnic respiratory failure CHF exacerbation, Diastolic Hypertension, Pulmonary hypertension, Chronic kidney disease, sleep apnea. RECOMMENDATION: We will continue ceftriaxone & azithromycin until tomorrow Negative COVID19 tests X 2 sputum culture: normal fly Case was D/W RN Subjective ROS Limited/Unobtainable: Yes Constitutional: Denies: fever Respiratory: Reports: no symptoms Musculoskeletal: Denies: pain Allergies: Coded Allergies: No Known Allergies (Unverified , 07/23/16) Objective Vital Signs Last 24 Hour Vital Signs Date Time Temp Pulse Resp B/P (MAP) Pulse Ox O2 Delivery O2 Flow Rate FiO2 08/12/19 10:00 79 21 127/68 (87) 95 08/12/19 09:00 76 21 150/72 (98) 95 08/12/19 08:58 75 22 100 08/12/19 08:30 76 21 134/72 (92) 95 08/12/19 08:00 Mechanical Ventilator Mechanical Ventilator 08/12/19 08:00 78 21 123/82 (96) 94 08/12/19 08:00 76 08/12/19 08:00 100 08/12/19 07:34 87 20 100 08/12/19 07:30 78 20 127/68 (87) 94 08/12/19 07:00 78 20 133/76 (95) 94 08/12/19 06:52 80 20 08/12/19 06:30 80 21 133/76 (95) 94 08/12/19 06:00 81 23 124/84 (97) 93 08/12/19 06:00 20 126/60 Mechanical Ventilator 100 08/12/19 05:30 84 21 128/76 (93) 92 08/12/19 05:00 86 22 132/74 (93) 92 08/12/19 05:00 20 128/60 Mechanical Ventilator 100 08/12/19 04:33 21 135/90 100 08/12/19 04:30 83 18 115/73 (87) 92 08/12/19 04:00 98.8 83 20 135/90 (105) 92 08/12/19 04:00 80 08/12/19 04:00 20 124/86 Mechanical Ventilator 100 08/12/19 04:00 100 08/12/19 04:00 Mechanical Ventilator Mechanical Ventilator 08/12/19 03:39 84 20 100 08/12/19 03:30 89 20 124/88 (100) 92 08/12/19 03:00 88 21 127/85 (99) 91 08/12/19 03:00 20 145/56 Mechanical Ventilator 100 08/12/19 02:30 95 23 132/83 (99) 92 08/12/19 02:00 20 126/56 Mechanical Ventilator 100 08/12/19 02:00 96 21 126/56 (79) 89 08/12/19 01:30 99 21 127/98 (108) 89 08/12/19 01:00 102 24 137/97 (110) 89 08/12/19 01:00 22 130/56 Mechanical Ventilator 08/12/19 00:30 105 24 130/88 (102) 89 08/12/19 00:30 105 24 130/88 (102) 89 08/12/19 00:00 98.4 112 23 143/100 (114) 90 08/12/19 00:00 18 124/86 Mechanical Ventilator 100 08/12/19 00:00 Mechanical Ventilator Mechanical Ventilator 08/12/19 00:00 83 08/12/19 00:00 90 08/11/19 23:38 123 24 158/88 (111) 92 08/11/19 23:30 134 25 210/115 (146) 93 08/11/19 23:25 34 137/100 Mechanical Ventilator 90 08/11/19 23:16 104 25 100 08/11/19 23:00 23 124/24 Mechanical Ventilator 100.0 08/11/19 23:00 85 21 138/109 (119) 92 08/11/19 22:30 87 24 156/100 (118) 93 08/11/19 22:00 18 124/64 Mechanical Ventilator 20.0 08/11/19 22:00 82 22 148/94 (112) 93 08/11/19 21:30 78 19 155/101 (119) 94 08/11/19 21:00 20 126/45 Mechanical Ventilator 100 08/11/19 21:00 77 21 148/96 (113) 97 08/11/19 20:30 77 25 158/99 (118) 96 08/11/19 20:00 90 08/11/19 20:00 18 126/56 Mechanical Ventilator 100 08/11/19 20:00 Mechanical Ventilator Mechanical Ventilator 08/11/19 20:00 98.6 78 25 153/98 (116) 96 08/11/19 20:00 64 08/11/19 19:58 77 22 90 08/11/19 19:00 85 24 158/100 (119) 93 08/11/19 18:56 29 178/145 Non-Rebreather 15.0 100 08/11/19 18:30 86 21 178/145 (156) 94 08/11/19 18:00 75 21 140/96 (111) 95 08/11/19 18:00 22 140/96 Mechanical Ventilator 90 08/11/19 17:38 76 23 90 08/11/19 17:30 77 20 145/94 (111) 94 08/11/19 17:00 22 154/95 Mechanical Ventilator 90 08/11/19 17:00 79 24 154/95 (114) 97 08/11/19 16:34 24 169/99 Mechanical Ventilator 90 08/11/19 16:30 78 27 169/99 (122) 94 08/11/19 16:00 Mechanical Ventilator Mechanical Ventilator 08/11/19 16:00 98.0 72 21 128/80 (96) 93 08/11/19 16:00 21 128/80 Mechanical Ventilator 90 08/11/19 16:00 90 08/11/19 16:00 83 08/11/19 15:30 73 22 138/87 (104) 93 08/11/19 15:00 75 21 137/85 (102) 93 08/11/19 15:00 22 137/85 Mechanical Ventilator 90 08/11/19 14:52 73 20 90 08/11/19 14:30 77 22 137/82 (100) 92 08/11/19 14:00 79 23 147/87 (107) 92 08/11/19 14:00 22 147/87 Mechanical Ventilator 90 08/11/19 13:30 87 18 166/99 (121) 95 08/11/19 13:19 81 22 90 08/11/19 13:00 80 21 137/84 (101) 94 08/11/19 13:00 23 137/84 Mechanical Ventilator 90 08/11/19 12:30 78 21 141/88 (105) 93 08/11/19 12:00 90 08/11/19 12:00 99.4 79 23 143/87 (105) 94 4/13/20 12:00 20 143/87 Mechanical Ventilator 90 08/11/19 12:00 Mechanical Ventilator Mechanical Ventilator 08/11/19 12:00 79 08/11/19 11:30 81 25 144/88 (106) 92 08/11/19 11:21 81 23 90 08/11/19 11:00 79 23 147/90 (109) 92 08/11/19 10:59 22 146/89 Mechanical Ventilator 70 Height (Feet): 6 Height (Inches): 1.00 Weight (Pounds): 230 General Appearance: no acute distress HEENT: mucous membranes moist Respiratory/Chest: lungs clear, other - on ventilator Cardiovascular: normal rate, other - R arm PICC line Abdomen: soft, non tender, other - orogastric tube Extremities: no edema Neurologic/Psychiatric: alert, responsive Microbiology Date/Time Source Procedure Growth Status 08/09/19 14:00 Nasopharynx Coronavirus COVID-19 PCR ([facility]) - Final Complete 08/09/19 14:00 Sputum Gram Stain - Final Complete 08/09/19 14:00 Sputum Sputum Culture - Final NORMAL UPPER RESPIRATORY FLY PRESENT Complete Current Medications Medications (Trade) Dose Ordered Sig/Judy Route PRN Reason Start Time Stop Time Status Last Admin Dose Admin Azithromycin 500 mg/Dextrose 275 ml @ 275 mls/hr Q24HRS IV 08/06/19 21:00 08/12/19 21:59 08/11/19 20:47 Ceftriaxone Sodium 1 gm/ Dextrose 55 ml @ 110 mls/hr Q24H IVPB 08/06/19 20:00 08/13/19 19:59 08/11/19 20:51 Chlorhexidine Gluconate (Jessenia-Hex 2%) 1 applic DAILY@2000 TOPIC 08/06/19 20:00 11/04/19 19:59 08/11/19 20:45 Clonidine HCl (Catapres Tab) 0.1 mg Q4H PRN GT SBP>170 08/09/19 11:15 11/05/19 12:59 Dextrose (Dextrose 50%) 25 ml Q30M PRN IV Hypoglycemia 08/06/19 10:30 11/04/19 10:29 Dextrose (Dextrose 50%) 50 ml Q30M PRN IV Hypoglycemia 08/06/19 10:30 11/04/19 10:29 Enoxaparin Sodium (Lovenox) 100 mg EVERY 12 HOURS SUBQ 08/11/19 21:00 11/09/19 20:59 08/12/19 09:22 Hydralazine HCl (Apresoline) 10 mg Q2H PRN IV SBP>170 08/07/19 13:00 11/05/19 12:59 Methylprednisolone Sodium Succinate (Solu-MEDROL) 40 mg EVERY 12 HOURS IVP 08/08/19 11:20 11/06/19 11:19 08/12/19 09:21 Pantoprazole (Protonix) 40 mg EVERY 12 HOURS IVP 08/06/19 10:00 09/05/19 09:59 08/12/19 09:21 Jesús Rose MD Aug 12, 2019 10:53
--- NOTE | 2019-08-12 10:56 | Pulmonology Progress Note ---
Assessment/Plan Assessment/Plan IMPRESSION: 1. Decompensated congestive heart failure. 2. COPD with exacerbation 3. Respiratory failure. 4. Obesity. 5. Acute on chronic respiratory acidosis. DISCUSSION: Off lasix; continue Diamox On steroids Continue broad-spectrum antibiotics. Propofol for sedation. Keep vent on AC mode. Decrease FiO2 and PEEP as tolerated. Still on FiO2 70% and PEEP 8 I will follow. Discussed with team regarding possibly initiating full dose anticoagulation for suspected PE. He has refractory hypoxemia and clear CXR. However ECHO is not suggestive of PE Will attempt extiuabtion to hi flow O21 Mitchell Cassidy M.D. Subjective Interval Events: Awake and responsive; remains intubated Constitutional: Reports: no symptoms HEENT: Repors: no symptoms Respiratory: Reports: no symptoms Cardiovascular: Reports: no symptoms Gastrointestinal/Abdominal: Reports: no symptoms Allergies: Coded Allergies: No Known Allergies (Unverified , 07/23/16) Objective Last 24 Hour Vital Signs Date Time Temp Pulse Resp B/P (MAP) Pulse Ox O2 Delivery O2 Flow Rate FiO2 08/12/19 10:00 79 21 127/68 (87) 95 08/12/19 09:00 76 21 150/72 (98) 95 08/12/19 08:58 75 22 100 08/12/19 08:30 76 21 134/72 (92) 95 08/12/19 08:00 Mechanical Ventilator Mechanical Ventilator 08/12/19 08:00 78 21 123/82 (96) 94 08/12/19 08:00 76 08/12/19 08:00 100 08/12/19 07:34 87 20 100 08/12/19 07:30 78 20 127/68 (87) 94 08/12/19 07:00 78 20 133/76 (95) 94 08/12/19 06:52 80 20 08/12/19 06:30 80 21 133/76 (95) 94 08/12/19 06:00 81 23 124/84 (97) 93 08/12/19 06:00 20 126/60 Mechanical Ventilator 100 08/12/19 05:30 84 21 128/76 (93) 92 08/12/19 05:00 86 22 132/74 (93) 92 08/12/19 05:00 20 128/60 Mechanical Ventilator 100 08/12/19 04:33 21 135/90 100 08/12/19 04:30 83 18 115/73 (87) 92 08/12/19 04:00 98.8 83 20 135/90 (105) 92 08/12/19 04:00 80 08/12/19 04:00 20 124/86 Mechanical Ventilator 100 08/12/19 04:00 100 08/12/19 04:00 Mechanical Ventilator Mechanical Ventilator 08/12/19 03:39 84 20 100 08/12/19 03:30 89 20 124/88 (100) 92 08/12/19 03:00 88 21 127/85 (99) 91 08/12/19 03:00 20 145/56 Mechanical Ventilator 100 08/12/19 02:30 95 23 132/83 (99) 92 08/12/19 02:00 20 126/56 Mechanical Ventilator 100 08/12/19 02:00 96 21 126/56 (79) 89 08/12/19 01:30 99 21 127/98 (108) 89 08/12/19 01:00 102 24 137/97 (110) 89 08/12/19 01:00 22 130/56 Mechanical Ventilator 08/12/19 00:30 105 24 130/88 (102) 89 08/12/19 00:30 105 24 130/88 (102) 89 08/12/19 00:00 98.4 112 23 143/100 (114) 90 08/12/19 00:00 18 124/86 Mechanical Ventilator 100 08/12/19 00:00 Mechanical Ventilator Mechanical Ventilator 08/12/19 00:00 83 08/12/19 00:00 90 08/11/19 23:38 123 24 158/88 (111) 92 08/11/19 23:30 134 25 210/115 (146) 93 08/11/19 23:25 34 137/100 Mechanical Ventilator 90 08/11/19 23:16 104 25 100 08/11/19 23:00 23 124/24 Mechanical Ventilator 100.0 08/11/19 23:00 85 21 138/109 (119) 92 08/11/19 22:30 87 24 156/100 (118) 93 08/11/19 22:00 18 124/64 Mechanical Ventilator 20.0 08/11/19 22:00 82 22 148/94 (112) 93 08/11/19 21:30 78 19 155/101 (119) 94 08/11/19 21:00 20 126/45 Mechanical Ventilator 100 08/11/19 21:00 77 21 148/96 (113) 97 08/11/19 20:30 77 25 158/99 (118) 96 08/11/19 20:00 90 08/11/19 20:00 18 126/56 Mechanical Ventilator 100 08/11/19 20:00 Mechanical Ventilator Mechanical Ventilator 08/11/19 20:00 98.6 78 25 153/98 (116) 96 08/11/19 20:00 64 08/11/19 19:58 77 22 90 08/11/19 19:00 85 24 158/100 (119) 93 08/11/19 18:56 29 178/145 Non-Rebreather 15.0 100 08/11/19 18:30 86 21 178/145 (156) 94 08/11/19 18:00 75 21 140/96 (111) 95 08/11/19 18:00 22 140/96 Mechanical Ventilator 90 08/11/19 17:38 76 23 90 08/11/19 17:30 77 20 145/94 (111) 94 08/11/19 17:00 22 154/95 Mechanical Ventilator 90 08/11/19 17:00 79 24 154/95 (114) 97 08/11/19 16:34 24 169/99 Mechanical Ventilator 90 08/11/19 16:30 78 27 169/99 (122) 94 08/11/19 16:00 Mechanical Ventilator Mechanical Ventilator 08/11/19 16:00 98.0 72 21 128/80 (96) 93 08/11/19 16:00 21 128/80 Mechanical Ventilator 90 08/11/19 16:00 90 08/11/19 16:00 83 08/11/19 15:30 73 22 138/87 (104) 93 08/11/19 15:00 75 21 137/85 (102) 93 08/11/19 15:00 22 137/85 Mechanical Ventilator 90 08/11/19 14:52 73 20 90 08/11/19 14:30 77 22 137/82 (100) 92 08/11/19 14:00 79 23 147/87 (107) 92 08/11/19 14:00 22 147/87 Mechanical Ventilator 90 08/11/19 13:30 87 18 166/99 (121) 95 08/11/19 13:19 81 22 90 08/11/19 13:00 80 21 137/84 (101) 94 08/11/19 13:00 23 137/84 Mechanical Ventilator 90 08/11/19 12:30 78 21 141/88 (105) 93 08/11/19 12:00 90 08/11/19 12:00 99.4 79 23 143/87 (105) 94 08/11/19 12:00 20 143/87 Mechanical Ventilator 90 08/11/19 12:00 Mechanical Ventilator Mechanical Ventilator 08/11/19 12:00 79 08/11/19 11:30 81 25 144/88 (106) 92 08/11/19 11:21 81 23 90 08/11/19 11:00 79 23 147/90 (109) 92 08/11/19 10:59 22 146/89 Mechanical Ventilator 70 Intake and Output 08/11/19 08/12/19 19:00 07:00 Intake Total 559.027 ml 811.089 ml Output Total 550 ml 540 ml Balance 9.027 ml 271.089 ml Intake Free Water 40 ml IV Total 159.027 ml 481.089 ml Tube Feeding 360 ml 330 ml Output Urine Total 550 ml 540 ml General Appearance: no acute distress HEENT: normocephalic Respiratory/Chest: chest wall non-tender, lungs clear Cardiovascular: normal peripheral pulses, normal rate Abdomen: normal bowel sounds Microbiology Date/Time Source Procedure Growth Status 08/09/19 14:00 Nasopharynx Coronavirus COVID-19 PCR ([facility]) - Final Complete 08/09/19 14:00 Sputum Gram Stain - Final Complete 08/09/19 14:00 Sputum Sputum Culture - Final NORMAL UPPER RESPIRATORY YANI PRESENT Complete Current Medications Medications (Trade) Dose Ordered Sig/Judy Route PRN Reason Start Time Stop Time Status Last Admin Dose Admin Azithromycin 500 mg/Dextrose 275 ml @ 275 mls/hr Q24HRS IV 08/06/19 21:00 08/12/19 21:59 08/11/19 20:47 Ceftriaxone Sodium 1 gm/ Dextrose 55 ml @ 110 mls/hr Q24H IVPB 08/06/19 20:00 08/13/19 19:59 08/11/19 20:51 Chlorhexidine Gluconate (Jessenia-Hex 2%) 1 applic DAILY@2000 TOPIC 08/06/19 20:00 11/04/19 19:59 08/11/19 20:45 Clonidine HCl (Catapres Tab) 0.1 mg Q4H PRN GT SBP>170 08/09/19 11:15 11/05/19 12:59 Dextrose (Dextrose 50%) 25 ml Q30M PRN IV Hypoglycemia 08/06/19 10:30 11/04/19 10:29 Dextrose (Dextrose 50%) 50 ml Q30M PRN IV Hypoglycemia 08/06/19 10:30 11/04/19 10:29 Enoxaparin Sodium (Lovenox) 100 mg EVERY 12 HOURS SUBQ 08/11/19 21:00 11/09/19 20:59 08/12/19 09:22 Hydralazine HCl (Apresoline) 10 mg Q2H PRN IV SBP>170 08/07/19 13:00 11/05/19 12:59 Methylprednisolone Sodium Succinate (Solu-MEDROL) 40 mg EVERY 12 HOURS IVP 08/08/19 11:20 11/06/19 11:19 08/12/19 09:21 Pantoprazole (Protonix) 40 mg EVERY 12 HOURS IVP 08/06/19 10:00 09/05/19 09:59 08/12/19 09:21 Mitchell Cassidy MD Aug 12, 2019 10:56
--- NOTE | 2019-08-12 11:26 | Cardiac Electrophysiology PN ---
Assessment/Plan Assessment/Plan 1. Respiratory failure, intubated on the vent due to combination of CHF,COPD, PNA and possible PE. His BNP is more than 5000. EF 55% with nl PAP. Lasix drip DCed as renal failure getting worse Ruled out for VT. JAKE Cassidy. On Lovenox 100 bid for possible PE. Now that off isolation, consider chest CT Being weaned for extubation. Alert and responsive 2. PNA Covid is negative, under management of Dr. Cassidy on Solumedrol, ceftriaxone and azithromycin. 3. ARF. 4. COPD. DW RN Subjective Subjective In ICU on the vent on 100% Fio2 . Covid test negativex2. Off isolation. ECHO Nl EF. On Diamox and Propofol. Objective Last 24 Hour Vital Signs Date Time Temp Pulse Resp B/P (MAP) Pulse Ox O2 Delivery O2 Flow Rate FiO2 08/12/19 10:00 79 21 127/68 (87) 95 08/12/19 09:00 76 21 150/72 (98) 95 08/12/19 08:58 75 22 100 08/12/19 08:30 76 21 134/72 (92) 95 08/12/19 08:00 Mechanical Ventilator Mechanical Ventilator 08/12/19 08:00 78 21 123/82 (96) 94 08/12/19 08:00 76 08/12/19 08:00 100 08/12/19 07:34 87 20 100 08/12/19 07:30 78 20 127/68 (87) 94 08/12/19 07:00 78 20 133/76 (95) 94 08/12/19 06:52 80 20 08/12/19 06:30 80 21 133/76 (95) 94 08/12/19 06:00 81 23 124/84 (97) 93 08/12/19 06:00 20 126/60 Mechanical Ventilator 100 08/12/19 05:30 84 21 128/76 (93) 92 08/12/19 05:00 86 22 132/74 (93) 92 08/12/19 05:00 20 128/60 Mechanical Ventilator 100 08/12/19 04:33 21 135/90 100 08/12/19 04:30 83 18 115/73 (87) 92 08/12/19 04:00 98.8 83 20 135/90 (105) 92 08/12/19 04:00 80 08/12/19 04:00 20 124/86 Mechanical Ventilator 100 08/12/19 04:00 100 08/12/19 04:00 Mechanical Ventilator Mechanical Ventilator 08/12/19 03:39 84 20 100 08/12/19 03:30 89 20 124/88 (100) 92 08/12/19 03:00 88 21 127/85 (99) 91 08/12/19 03:00 20 145/56 Mechanical Ventilator 100 08/12/19 02:30 95 23 132/83 (99) 92 08/12/19 02:00 20 126/56 Mechanical Ventilator 100 08/12/19 02:00 96 21 126/56 (79) 89 08/12/19 01:30 99 21 127/98 (108) 89 08/12/19 01:00 102 24 137/97 (110) 89 08/12/19 01:00 22 130/56 Mechanical Ventilator 08/12/19 00:30 105 24 130/88 (102) 89 08/12/19 00:30 105 24 130/88 (102) 89 08/12/19 00:00 98.4 112 23 143/100 (114) 90 08/12/19 00:00 18 124/86 Mechanical Ventilator 100 08/12/19 00:00 Mechanical Ventilator Mechanical Ventilator 08/12/19 00:00 83 08/12/19 00:00 90 08/11/19 23:38 123 24 158/88 (111) 92 08/11/19 23:30 134 25 210/115 (146) 93 08/11/19 23:25 34 137/100 Mechanical Ventilator 90 08/11/19 23:16 104 25 100 08/11/19 23:00 23 124/24 Mechanical Ventilator 100.0 08/11/19 23:00 85 21 138/109 (119) 92 08/11/19 22:30 87 24 156/100 (118) 93 08/11/19 22:00 18 124/64 Mechanical Ventilator 20.0 08/11/19 22:00 82 22 148/94 (112) 93 08/11/19 21:30 78 19 155/101 (119) 94 08/11/19 21:00 20 126/45 Mechanical Ventilator 100 08/11/19 21:00 77 21 148/96 (113) 97 08/11/19 20:30 77 25 158/99 (118) 96 08/11/19 20:00 90 08/11/19 20:00 18 126/56 Mechanical Ventilator 100 08/11/19 20:00 Mechanical Ventilator Mechanical Ventilator 08/11/19 20:00 98.6 78 25 153/98 (116) 96 08/11/19 20:00 64 08/11/19 19:58 77 22 90 08/11/19 19:00 85 24 158/100 (119) 93 08/11/19 18:56 29 178/145 Non-Rebreather 15.0 100 08/11/19 18:30 86 21 178/145 (156) 94 08/11/19 18:00 75 21 140/96 (111) 95 08/11/19 18:00 22 140/96 Mechanical Ventilator 90 08/11/19 17:38 76 23 90 08/11/19 17:30 77 20 145/94 (111) 94 08/11/19 17:00 22 154/95 Mechanical Ventilator 90 08/11/19 17:00 79 24 154/95 (114) 97 08/11/19 16:34 24 169/99 Mechanical Ventilator 90 08/11/19 16:30 78 27 169/99 (122) 94 08/11/19 16:00 Mechanical Ventilator Mechanical Ventilator 08/11/19 16:00 98.0 72 21 128/80 (96) 93 08/11/19 16:00 21 128/80 Mechanical Ventilator 90 08/11/19 16:00 90 08/11/19 16:00 83 08/11/19 15:30 73 22 138/87 (104) 93 08/11/19 15:00 75 21 137/85 (102) 93 08/11/19 15:00 22 137/85 Mechanical Ventilator 90 08/11/19 14:52 73 20 90 08/11/19 14:30 77 22 137/82 (100) 92 08/11/19 14:00 79 23 147/87 (107) 92 08/11/19 14:00 22 147/87 Mechanical Ventilator 90 08/11/19 13:30 87 18 166/99 (121) 95 08/11/19 13:19 81 22 90 08/11/19 13:00 80 21 137/84 (101) 94 08/11/19 13:00 23 137/84 Mechanical Ventilator 90 08/11/19 12:30 78 21 141/88 (105) 93 08/11/19 12:00 90 08/11/19 12:00 99.4 79 23 143/87 (105) 94 08/11/19 12:00 20 143/87 Mechanical Ventilator 90 08/11/19 12:00 Mechanical Ventilator Mechanical Ventilator 08/11/19 12:00 79 08/11/19 11:30 81 25 144/88 (106) 92 Intake and Output 08/11/19 08/12/19 19:00 07:00 Intake Total 559.027 ml 811.089 ml Output Total 550 ml 540 ml Balance 9.027 ml 271.089 ml Intake Free Water 40 ml IV Total 159.027 ml 481.089 ml Tube Feeding 360 ml 330 ml Output Urine Total 550 ml 540 ml Microbiology Date/Time Source Procedure Growth Status 08/09/19 14:00 Nasopharynx Coronavirus COVID-19 PCR ([facility]ITA) - Final Complete 08/09/19 14:00 Sputum Gram Stain - Final Complete 08/09/19 14:00 Sputum Sputum Culture - Final NORMAL UPPER RESPIRATORY YANI PRESENT Complete Objective HEAD AND NECK: No JVD. Orally intubated LUNGS: Coarse rhonchi bilaterally. CARDIOVASCULAR: Shows regular S1 and S2 with no gallop or murmur. ABDOMEN: Soft. EXTREMITIES: He has 1+ pitting edema. Livan Parker MD Aug 12, 2019 11:26
[2019-08-12] MEDS: Dyna-Hex 2% Top Sol 2oz TOPIC SCH (20:00)
[2019-08-12] MEDS: Azithromycin 500 MG in D5W 275 ML IV SCH (20:48)
[2019-08-12] MEDS: cefTRIAXone 1 GM in D5W 55 ML IVPB SCH (20:49)
--- NOTE | 2019-08-12 21:36 | General Progress Note ---
Assessment/Plan Problem List: (1) Respiratory failure ICD Codes: J96.90 - Respiratory failure, unspecified, unspecified whether with hypoxia or hypercapnia SNOMED: 699843981 (2) CHF exacerbation ICD Codes: I50.9 - Heart failure, unspecified SNOMED: 433931685, 57898646637501 (3) COPD exacerbation ICD Codes: J44.1 - Chronic obstructive pulmonary disease with (acute) exacerbation SNOMED: 669649787 (4) Acute respiratory failure ICD Codes: J96.00 - Acute respiratory failure, unspecified whether with hypoxia or hypercapnia SNOMED: 49958717 (5) ATN (acute tubular necrosis) ICD Codes: N17.0 - Acute kidney failure with tubular necrosis SNOMED: 27428603 (6) Nephrotic syndrome ICD Codes: N04.9 - Nephrotic syndrome with unspecified morphologic changes SNOMED: 54579210 Status: progressing, unchanged Assessment/Plan: resp failure sepsis pna intubated chf s/p pressors edema dry eyes no change reviewed chart and labs Subjective ROS Limited/Unobtainable: Yes Allergies: Coded Allergies: No Known Allergies (Unverified , 07/23/16) Objective Last 24 Hour Vital Signs Date Time Temp Pulse Resp B/P (MAP) Pulse Ox O2 Delivery O2 Flow Rate FiO2 08/12/19 19:00 82 132/83 (99) 94 08/12/19 18:00 82 19 145/92 (109) 92 08/12/19 17:00 86 156/98 (117) 89 08/12/19 16:00 81 08/12/19 16:00 Nasal Cannula 40.0 Nasal Cannula 40.0 08/12/19 16:00 40.0 100 08/12/19 16:00 98.6 79 22 144/100 (115) 93 08/12/19 15:12 93 High Flow 40.0 100 08/12/19 15:00 78 23 115/59 (77) 96 08/12/19 14:00 89 22 149/90 (109) 97 08/12/19 13:00 91 31 140/92 (108) 96 08/12/19 12:15 Nasal Cannula 40.0 100 08/12/19 12:15 92 High Flow 40.0 100 08/12/19 12:00 Nasal Cannula 40.0 Nasal Cannula 40.0 08/12/19 12:00 40.0 100 08/12/19 12:00 98.8 88 28 137/90 (106) 89 08/12/19 12:00 81 08/12/19 11:00 86 25 150/104 (119) 98 08/12/19 11:00 20 150/104 Mechanical Ventilator 100 08/12/19 10:00 79 21 127/68 (87) 95 08/12/19 10:00 26 139/85 Mechanical Ventilator 100 08/12/19 09:00 76 21 150/72 (98) 95 08/12/19 09:00 21 134/72 Mechanical Ventilator 100 08/12/19 08:58 75 22 100 08/12/19 08:30 76 21 134/72 (92) 95 08/12/19 08:00 Mechanical Ventilator Mechanical Ventilator 08/12/19 08:00 98.5 08/12/19 08:00 78 21 123/82 (96) 94 08/12/19 08:00 76 08/12/19 08:00 20 123/82 Mechanical Ventilator 100 08/12/19 08:00 100 08/12/19 07:34 87 20 100 08/12/19 07:30 78 20 127/68 (87) 94 08/12/19 07:00 21 127/68 Mechanical Ventilator 100 08/12/19 07:00 78 20 133/76 (95) 94 08/12/19 06:52 80 20 08/12/19 06:30 80 21 133/76 (95) 94 08/12/19 06:00 81 23 124/84 (97) 93 08/12/19 06:00 20 126/60 Mechanical Ventilator 100 08/12/19 05:30 84 21 128/76 (93) 92 08/12/19 05:00 86 22 132/74 (93) 92 08/12/19 05:00 20 128/60 Mechanical Ventilator 100 08/12/19 04:33 21 135/90 100 08/12/19 04:30 83 18 115/73 (87) 92 08/12/19 04:00 98.8 83 20 135/90 (105) 92 08/12/19 04:00 80 08/12/19 04:00 20 124/86 Mechanical Ventilator 100 08/12/19 04:00 100 08/12/19 04:00 Mechanical Ventilator Mechanical Ventilator 4/14/20 03:39 84 20 100 08/12/19 03:30 89 20 124/88 (100) 92 08/12/19 03:00 88 21 127/85 (99) 91 08/12/19 03:00 20 145/56 Mechanical Ventilator 100 08/12/19 02:30 95 23 132/83 (99) 92 08/12/19 02:00 20 126/56 Mechanical Ventilator 100 08/12/19 02:00 96 21 126/56 (79) 89 08/12/19 01:30 99 21 127/98 (108) 89 08/12/19 01:00 102 24 137/97 (110) 89 08/12/19 01:00 22 130/56 Mechanical Ventilator 08/12/19 00:30 105 24 130/88 (102) 89 08/12/19 00:30 105 24 130/88 (102) 89 08/12/19 00:00 98.4 112 23 143/100 (114) 90 08/12/19 00:00 18 124/86 Mechanical Ventilator 100 08/12/19 00:00 Mechanical Ventilator Mechanical Ventilator 08/12/19 00:00 83 08/12/19 00:00 90 08/11/19 23:38 123 24 158/88 (111) 92 08/11/19 23:30 134 25 210/115 (146) 93 08/11/19 23:25 34 137/100 Mechanical Ventilator 90 08/11/19 23:16 104 25 100 08/11/19 23:00 23 124/24 Mechanical Ventilator 100.0 08/11/19 23:00 85 21 138/109 (119) 92 08/11/19 22:30 87 24 156/100 (118) 93 08/11/19 22:00 18 124/64 Mechanical Ventilator 20.0 08/11/19 22:00 82 22 148/94 (112) 93 Intake and Output 08/11/19 08/12/19 19:00 07:00 Intake Total 559.027 ml 824.836 ml Output Total 550 ml 540 ml Balance 9.027 ml 284.836 ml Intake Free Water 40 ml IV Total 159.027 ml 494.836 ml Tube Feeding 360 ml 330 ml Output Urine Total 550 ml 540 ml Laboratory Tests 08/12/19 11:35: Arterial Blood pH 7.351, Arterial Blood Partial Pressure CO2 62.0*H, Arterial Blood Partial Pressure O2 58.9L, Arterial Blood HCO3 33.5H, Arterial Blood Oxygen Saturation 88.9*L, Arterial Blood Base Excess 5.5H, Wil[place] Test Positive 08/12/19 13:20: Arterial Blood pH 7.345L, Arterial Blood Partial Pressure CO2 62.9*H, Arterial Blood Partial Pressure O2 61.1L, Arterial Blood HCO3 33.6H, Arterial Blood Oxygen Saturation 90.2L, Arterial Blood Base Excess 5.4H, Wilton Test Positive Height (Feet): 6 Height (Inches): 1.00 Weight (Pounds): 230 Santi Ortez MD Aug 12, 2019 21:36
[2019-08-13] VITALS (21 sets, daily range): BP systolic 102–153; BP diastolic 61–104
[2019-08-13 07:24] LABS: BASOPHILS % (AUTO) 0.4 % (0.0-2.0); EOSINOPHILS % (AUTO) 2.3 % (0.0-3.0); HEMATOCRIT 50.5 % (42.0-52.0); LYMPHOCYTES % (AUTO) 7.1 % (20.0-45.0); MEAN CORPUSCULAR VOLUME 84 FL (80-99); MONOCYTES % (AUTO) 8.9 % (1.0-10.0); NEUTROPHILS % (AUTO) 81.3 % (45.0-75.0); PLATELET COUNT 199 K/UL (150-450); RED BLOOD COUNT 6.02 M/UL (4.70-6.10); RED CELL DISTRIBUTION WIDTH 13.8 % (11.6-14.8); WHITE BLOOD COUNT 13.2 K/UL (4.8-10.8)
[2019-08-13 07:53] LABS: ALANINE AMINOTRANSFERASE 25 U/L (12-78); ALBUMIN/GLOBULIN RATIO 0.7 (1.0-2.7); ALKALINE PHOSPHATASE 70 U/L (46-116); ANION GAP 9 mmol/L (5-15); ASPARTATE AMINO TRANSFERASE 24 U/L (15-37); BILIRUBIN,TOTAL 0.6 MG/DL (0.2-1.0); BLOOD UREA NITROGEN 38 mg/dL (7-18); CARBON DIOXIDE 32 MMOL/L (21-32); CHLORIDE 105 MMOL/L (98-107); CREATININE 1.3 MG/DL (0.55-1.30); PHOSPHORUS 3.7 MG/DL (2.5-4.9); POTASSIUM 3.8 MMOL/L (3.5-5.1); SODIUM 146 MMOL/L (136-145)
[2019-08-13] MEDS: Enoxaparin 100mg Inj SUBQ SCH ×2 (08:10→20:45)
--- NOTE | 2019-08-13 08:57 | Nephrology Progress Note ---
Assessment/Plan Problem List: (1) CAITLIN (acute kidney injury) (2) Hypokalemia (3) Acute respiratory failure (4) CHF (congestive heart failure) (5) COPD exacerbation Assessment Acute respiratory failure requiring intubation and mechanical ventilation , currently on FiO2 of 70% CHF (congestive heart failure), exacerbation COPD exacerbation Lymphopenia Plan Today's labs are reviewed Off Diamox and potassium supplement serum creatinine down to 1.3 Stable from renal standpoint to view Vent management per pulmonary NG tube Change feeding to Nepro Continue to monitor renal parameters IV Protonix Antibiotics Steroids is being continued 2D echocardiogram ejection fraction 55% Monitor urine output and renal parameters Monitor immunoresponse parameters Per orders Subjective ROS Limited/Unobtainable: No Constitutional: Reports: malaise Objective Objective Last 24 Hour Vital Signs Date Time Temp Pulse Resp B/P (MAP) Pulse Ox O2 Delivery O2 Flow Rate FiO2 08/13/19 07:50 93 High Flow 40.0 100 08/13/19 07:00 76 29 125/83 (97) 92 08/13/19 06:00 81 30 145/95 (112) 92 08/13/19 05:00 84 22 121/87 (98) 91 08/13/19 04:12 88 High Flow 40.0 100 08/13/19 04:00 88 08/13/19 04:00 98.6 84 27 130/88 (102) 90 08/13/19 04:00 Nasal Cannula 40.0 Nasal Cannula 40.0 08/13/19 03:00 79 19 130/72 (91) 96 08/13/19 02:00 81 29 130/70 (90) 98 08/13/19 01:00 72 27 150/94 (112) 95 08/13/19 00:00 86 08/13/19 00:00 78 23 151/96 (114) 90 08/13/19 00:00 Nasal Cannula 40.0 Nasal Cannula 40.0 08/13/19 00:00 40.0 100 08/12/19 23:56 89 High Flow 40.0 100 08/12/19 23:00 98.8 76 26 128/79 (95) 93 08/12/19 22:00 89 19 115/96 (102) 91 08/12/19 21:00 90 08/12/19 21:00 82 19 160/100 (120) 91 08/12/19 20:55 90 High Flow 40.0 100 08/12/19 20:00 40.0 100 08/12/19 20:00 Nasal Cannula 40.0 Nasal Cannula 40.0 08/12/19 20:00 79 16 143/117 (126) 92 08/12/19 19:00 82 132/83 (99) 94 08/12/19 18:00 82 19 145/92 (109) 92 08/12/19 17:00 86 156/98 (117) 89 08/12/19 16:00 81 08/12/19 16:00 Nasal Cannula 40.0 Nasal Cannula 40.0 08/12/19 16:00 40.0 100 08/12/19 16:00 98.6 79 22 144/100 (115) 93 08/12/19 15:12 93 High Flow 40.0 100 08/12/19 15:00 78 23 115/59 (77) 96 08/12/19 14:00 89 22 149/90 (109) 97 08/12/19 13:00 91 31 140/92 (108) 96 08/12/19 12:15 Nasal Cannula 40.0 100 08/12/19 12:15 92 High Flow 40.0 100 08/12/19 12:00 Nasal Cannula 40.0 Nasal Cannula 40.0 08/12/19 12:00 40.0 100 08/12/19 12:00 98.8 88 28 137/90 (106) 89 08/12/19 12:00 81 08/12/19 11:00 86 25 150/104 (119) 98 08/12/19 11:00 20 150/104 Mechanical Ventilator 100 08/12/19 10:00 79 21 127/68 (87) 95 08/12/19 10:00 26 139/85 Mechanical Ventilator 100 08/12/19 09:00 76 21 150/72 (98) 95 08/12/19 09:00 21 134/72 Mechanical Ventilator 100 08/12/19 08:58 75 22 100 Intake and Output 08/12/19 08/13/19 19:00 07:00 Intake Total 159.988 ml 55 ml Output Total 730 ml 550 ml Balance -570.012 ml -495 ml IV Total 54.988 ml 55 ml Tube Feeding 105 ml Output Urine Total 730 ml 550 ml # Bowel Movements 1 Current Medications Medications (Trade) Dose Ordered Sig/Judy Route PRN Reason Start Time Stop Time Status Last Admin Dose Admin Artificial Tears (Akwa-Tears) 2 drop Q4H PRN BOTH EYES Dry Eyes 08/12/19 19:00 09/11/19 18:59 08/12/19 20:42 Ceftriaxone Sodium 1 gm/ Dextrose 55 ml @ 110 mls/hr Q24H IVPB 08/06/19 20:00 08/13/19 19:59 08/12/19 20:49 Chlorhexidine Gluconate (Jessenia-Hex 2%) 1 applic DAILY@2000 TOPIC 08/06/19 20:00 11/04/19 19:59 08/12/19 20:00 Clonidine HCl (Catapres Tab) 0.1 mg Q4H PRN GT SBP>170 08/09/19 11:15 11/05/19 12:59 Dextrose (Dextrose 50%) 25 ml Q30M PRN IV Hypoglycemia 08/06/19 10:30 11/04/19 10:29 Dextrose (Dextrose 50%) 50 ml Q30M PRN IV Hypoglycemia 08/06/19 10:30 11/04/19 10:29 Enoxaparin Sodium (Lovenox) 100 mg EVERY 12 HOURS SUBQ 08/11/19 21:00 11/09/19 20:59 08/13/19 08:10 Hydralazine HCl (Apresoline) 10 mg Q2H PRN IV SBP>170 08/07/19 13:00 11/05/19 12:59 Methylprednisolone Sodium Succinate (Solu-MEDROL) 40 mg DAILY IVP 08/13/19 09:00 11/06/19 11:19 08/13/19 08:09 Pantoprazole (Protonix) 40 mg DAILY IVP 08/13/19 09:00 09/05/19 09:59 08/13/19 08:09 Laboratory Tests 08/12/19 11:35: Arterial Blood pH 7.351, Arterial Blood Partial Pressure CO2 62.0*H, Arterial Blood Partial Pressure O2 58.9L, Arterial Blood HCO3 33.5H, Arterial Blood Oxygen Saturation 88.9*L, Arterial Blood Base Excess 5.5H, [place] Test Positive 08/12/19 13:20: Arterial Blood pH 7.345L, Arterial Blood Partial Pressure CO2 62.9*H, Arterial Blood Partial Pressure O2 61.1L, Arterial Blood HCO3 33.6H, Arterial Blood Oxygen Saturation 90.2L, Arterial Blood Base Excess 5.4H, [place] Test Positive 08/13/19 05:10: White Blood Count 13.2H, Red Blood Count 6.02, Hemoglobin 16.0, Hematocrit 50.5 , Mean Corpuscular Volume 84, Mean Corpuscular Hemoglobin 26.5L, Mean Corpuscular Hemoglobin Concent 31.6L, Red Cell Distribution Width 13.8, Platelet Count 199, Mean Platelet Volume 7.0, Neutrophils (%) (Auto) 81.3H, Lymphocytes (%) (Auto) 7.1L, Monocytes (%) (Auto) 8.9, Eosinophils (%) (Auto) 2.3, Basophils (%) (Auto) 0.4, Sodium Level 146H, Potassium Level 3.8, Chloride Level 105, Carbon Dioxide Level 32, Anion Gap 9, Blood Urea Nitrogen 38H, Creatinine 1.3, Estimat Glomerular Filtration Rate > 60, Glucose Level 121H, Uric Acid 4.5, Calcium Level 9.0, Phosphorus Level 3.7, Magnesium Level 2.1, Total Bilirubin 0.6, Aspartate Amino Transf (AST/SGOT) 24, Alanine Aminotransferase (ALT/SGPT) 25, Alkaline Phosphatase 70, C-Reactive Protein, Quantitative 3.0H, Pro-B-Type Natriuretic Peptide 472H, Total Protein 7.4, Albumin 3.0L, Globulin 4.4, Albumin/Globulin Ratio 0.7L Height (Feet): 6 Height (Inches): 1.00 Weight (Pounds): 210 General Appearance: no apparent distress EENT: other - Extubated and on high flow oxygen Cardiovascular: normal rate Respiratory/Chest: decreased breath sounds Abdomen: distended Ovi Byrnes MD Aug 13, 2019 08:57
[2019-08-13] MEDS ORDERED: Solu-MEDROL 40mg Inj IVP SCH (09:00)
[2019-08-13] MEDS ORDERED: Pantoprazole Inj IVP SCH (09:00)
[2019-08-13] MEDS: Docusate 100mg cap ORAL SCH ×2 (09:00→13:00)
--- NOTE | 2019-08-13 09:17 | Infectious Diseases Prog Note ---
Assessment/Plan Assessment/Plan IMPRESSION: COPD exacerbation, Hypercapnic respiratory failure CHF exacerbation, Diastolic Hypertension, Pulmonary hypertension, Chronic kidney disease, sleep apnea. RECOMMENDATION: Discontinue ceftriaxone Negative COVID19 tests X 2 sputum culture: normal fly Subjective ROS Limited/Unobtainable: No Constitutional: Reports: no symptoms HEENT: Reports: other - blurry vision Respiratory: Reports: productive cough, other - extubated yesterday Cardiovascular: Reports: no symptoms Gastrointestinal/Abdominal: Reports: no symptoms Genitourinary: Reports: no symptoms Allergies: Coded Allergies: No Known Allergies (Unverified , 07/23/16) Objective Vital Signs Last 24 Hour Vital Signs Date Time Temp Pulse Resp B/P (MAP) Pulse Ox O2 Delivery O2 Flow Rate FiO2 08/13/19 07:50 93 High Flow 40.0 100 08/13/19 07:00 76 29 125/83 (97) 92 08/13/19 06:00 81 30 145/95 (112) 92 08/13/19 05:00 84 22 121/87 (98) 91 08/13/19 04:12 88 High Flow 40.0 100 08/13/19 04:00 88 08/13/19 04:00 98.6 84 27 130/88 (102) 90 08/13/19 04:00 Nasal Cannula 40.0 Nasal Cannula 40.0 08/13/19 03:00 79 19 130/72 (91) 96 08/13/19 02:00 81 29 130/70 (90) 98 08/13/19 01:00 72 27 150/94 (112) 95 08/13/19 00:00 86 08/13/19 00:00 78 23 151/96 (114) 90 08/13/19 00:00 Nasal Cannula 40.0 Nasal Cannula 40.0 08/13/19 00:00 40.0 100 08/12/19 23:56 89 High Flow 40.0 100 08/12/19 23:00 98.8 76 26 128/79 (95) 93 08/12/19 22:00 89 19 115/96 (102) 91 08/12/19 21:00 90 08/12/19 21:00 82 19 160/100 (120) 91 08/12/19 20:55 90 High Flow 40.0 100 08/12/19 20:00 40.0 100 08/12/19 20:00 Nasal Cannula 40.0 Nasal Cannula 40.0 08/12/19 20:00 79 16 143/117 (126) 92 08/12/19 19:00 82 132/83 (99) 94 08/12/19 18:00 82 19 145/92 (109) 92 08/12/19 17:00 86 156/98 (117) 89 08/12/19 16:00 81 08/12/19 16:00 Nasal Cannula 40.0 Nasal Cannula 40.0 08/12/19 16:00 40.0 100 08/12/19 16:00 98.6 79 22 144/100 (115) 93 08/12/19 15:12 93 High Flow 40.0 100 08/12/19 15:00 78 23 115/59 (77) 96 08/12/19 14:00 89 22 149/90 (109) 97 08/12/19 13:00 91 31 140/92 (108) 96 08/12/19 12:15 Nasal Cannula 40.0 100 08/12/19 12:15 92 High Flow 40.0 100 08/12/19 12:00 Nasal Cannula 40.0 Nasal Cannula 40.0 08/12/19 12:00 40.0 100 08/12/19 12:00 98.8 88 28 137/90 (106) 89 08/12/19 12:00 81 08/12/19 11:00 86 25 150/104 (119) 98 08/12/19 11:00 20 150/104 Mechanical Ventilator 100 08/12/19 10:00 79 21 127/68 (87) 95 08/12/19 10:00 26 139/85 Mechanical Ventilator 100 Height (Feet): 6 Height (Inches): 1.00 Weight (Pounds): 210 General Appearance: no acute distress HEENT: other - conjunctival erythema Cardiovascular: normal rate Abdomen: soft, non tender Extremities: no edema Neurologic/Psychiatric: alert, oriented x 3, responsive Laboratory Tests Test 08/12/19 11:35 08/12/19 13:20 08/13/19 05:10 Arterial Blood pH 7.351 (7.350-7.450) 7.345 (7.350-7.450) Arterial Blood Partial Pressure CO2 62.0 mmHg (35.0-45.0) *H 62.9 mmHg (35.0-45.0) *H Arterial Blood Partial Pressure O2 58.9 mmHg (75.0-100.0) L 61.1 mmHg (75.0-100.0) L Arterial Blood HCO3 33.5 mmol/L (22.0-26.0) H 33.6 mmol/L (22.0-26.0) H Arterial Blood Oxygen Saturation 88.9 % (95-100) *L 90.2 % (95-100) L Arterial Blood Base Excess 5.5 (-2-2) H 5.4 (-2-2) H [place] Test Positive Positive White Blood Count 13.2 K/UL (4.8-10.8) H Red Blood Count 6.02 M/UL (4.70-6.10) Hemoglobin 16.0 G/DL (14.2-18.0) Hematocrit 50.5 % (42.0-52.0) Mean Corpuscular Volume 84 FL (80-99) Mean Corpuscular Hemoglobin 26.5 PG (27.0-31.0) L Mean Corpuscular Hemoglobin Concent 31.6 G/DL (32.0-36.0) L Red Cell Distribution Width 13.8 % (11.6-14.8) Platelet Count 199 K/UL (150-450) Mean Platelet Volume 7.0 FL (6.5-10.1) Neutrophils (%) (Auto) 81.3 % (45.0-75.0) H Lymphocytes (%) (Auto) 7.1 % (20.0-45.0) L Monocytes (%) (Auto) 8.9 % (1.0-10.0) Eosinophils (%) (Auto) 2.3 % (0.0-3.0) Basophils (%) (Auto) 0.4 % (0.0-2.0) Sodium Level 146 MMOL/L (136-145) H Potassium Level 3.8 MMOL/L (3.5-5.1) Chloride Level 105 MMOL/L (98-107) Carbon Dioxide Level 32 MMOL/L (21-32) Anion Gap 9 mmol/L (5-15) Blood Urea Nitrogen 38 mg/dL (7-18) H Creatinine 1.3 MG/DL (0.55-1.30) Estimat Glomerular Filtration Rate > 60 mL/min (>60) Glucose Level 121 MG/DL (74-106) H Uric Acid 4.5 MG/DL (2.6-7.2) Calcium Level 9.0 MG/DL (8.5-10.1) Phosphorus Level 3.7 MG/DL (2.5-4.9) Magnesium Level 2.1 MG/DL (1.8-2.4) Total Bilirubin 0.6 MG/DL (0.2-1.0) Aspartate Amino Transf (AST/SGOT) 24 U/L (15-37) Alanine Aminotransferase (ALT/SGPT) 25 U/L (12-78) Alkaline Phosphatase 70 U/L (46-116) C-Reactive Protein, Quantitative 3.0 mg/dL (0.00-0.90) H Pro-B-Type Natriuretic Peptide 472 pg/mL (0-125) H Total Protein 7.4 G/DL (6.4-8.2) Albumin 3.0 G/DL (3.4-5.0) L Globulin 4.4 g/dL Albumin/Globulin Ratio 0.7 (1.0-2.7) L Current Medications Medications (Trade) Dose Ordered Sig/Judy Route PRN Reason Start Time Stop Time Status Last Admin Dose Admin Artificial Tears (Akwa-Tears) 2 drop Q4H PRN BOTH EYES Dry Eyes 08/12/19 19:00 09/11/19 18:59 08/12/19 20:42 Ceftriaxone Sodium 1 gm/ Dextrose 55 ml @ 110 mls/hr Q24H IVPB 08/06/19 20:00 08/13/19 19:59 08/12/19 20:49 Chlorhexidine Gluconate (Jessenia-Hex 2%) 1 applic DAILY@2000 TOPIC 08/06/19 20:00 11/04/19 19:59 08/12/19 20:00 Clonidine HCl (Catapres Tab) 0.1 mg Q4H PRN GT SBP>170 08/09/19 11:15 11/05/19 12:59 Dextrose (Dextrose 50%) 25 ml Q30M PRN IV Hypoglycemia 08/06/19 10:30 11/04/19 10:29 Dextrose (Dextrose 50%) 50 ml Q30M PRN IV Hypoglycemia 08/06/19 10:30 11/04/19 10:29 Docusate Sodium (Colace) 100 mg THREE TIMES A DAY ORAL 08/13/19 09:00 09/12/19 08:59 Enoxaparin Sodium (Lovenox) 100 mg EVERY 12 HOURS SUBQ 08/11/19 21:00 11/09/19 20:59 08/13/19 08:10 Hydralazine HCl (Apresoline) 10 mg Q2H PRN IV SBP>170 08/07/19 13:00 11/05/19 12:59 Methylprednisolone Sodium Succinate (Solu-MEDROL) 40 mg DAILY IVP 08/13/19 09:00 11/06/19 11:19 08/13/19 08:09 Pantoprazole (Protonix) 40 mg EVERY 12 HOURS ORAL 08/13/19 09:00 09/12/19 08:59 Jesús Rose MD Aug 13, 2019 09:17
--- NOTE | 2019-08-13 10:35 | Pulmonology Progress Note ---
Assessment/Plan Assessment/Plan IMPRESSION: 1. Decompensated congestive heart failure. 2. COPD with exacerbation 3. Respiratory failure. Now extubated. 4. Obesity. 5. Acute on chronic respiratory acidosis. DISCUSSION: Off lasix; dc Diamox On steroids Continue broad-spectrum antibiotics. Continue high flow O2 Continue full dose Lovenox Discussed with team regarding possibly initiating full dose anticoagulation for suspected PE. He has refractory hypoxemia and clear CXR. However ECHO is not suggestive of PE Will need CT chest with contrast to rule out PE Mitchell Cassidy M.D. Subjective Interval Events: Extubated yesterday; on NRBM Constitutional: Reports: no symptoms HEENT: Repors: no symptoms Respiratory: Reports: no symptoms Cardiovascular: Reports: no symptoms Gastrointestinal/Abdominal: Reports: no symptoms Genitourinary: Reports: no symptoms Allergies: Coded Allergies: No Known Allergies (Unverified , 07/23/16) Objective Last 24 Hour Vital Signs Date Time Temp Pulse Resp B/P (MAP) Pulse Ox O2 Delivery O2 Flow Rate FiO2 08/13/19 10:00 55.0 100 08/13/19 08:00 40.0 100 08/13/19 07:50 93 High Flow 40.0 100 08/13/19 07:00 76 29 125/83 (97) 92 08/13/19 06:00 81 30 145/95 (112) 92 08/13/19 05:00 84 22 121/87 (98) 91 08/13/19 04:12 88 High Flow 40.0 100 08/13/19 04:00 88 08/13/19 04:00 98.6 84 27 130/88 (102) 90 08/13/19 04:00 Nasal Cannula 40.0 Nasal Cannula 40.0 08/13/19 03:00 79 19 130/72 (91) 96 08/13/19 02:00 81 29 130/70 (90) 98 08/13/19 01:00 72 27 150/94 (112) 95 08/13/19 00:00 86 08/13/19 00:00 78 23 151/96 (114) 90 08/13/19 00:00 Nasal Cannula 40.0 Nasal Cannula 40.0 08/13/19 00:00 40.0 100 08/12/19 23:56 89 High Flow 40.0 100 08/12/19 23:00 98.8 76 26 128/79 (95) 93 08/12/19 22:00 89 19 115/96 (102) 91 08/12/19 21:00 90 08/12/19 21:00 82 19 160/100 (120) 91 08/12/19 20:55 90 High Flow 40.0 100 08/12/19 20:00 40.0 100 08/12/19 20:00 Nasal Cannula 40.0 Nasal Cannula 40.0 08/12/19 20:00 79 16 143/117 (126) 92 08/12/19 19:00 82 132/83 (99) 94 08/12/19 18:00 82 19 145/92 (109) 92 08/12/19 17:00 86 156/98 (117) 89 08/12/19 16:00 81 08/12/19 16:00 Nasal Cannula 40.0 Nasal Cannula 40.0 08/12/19 16:00 40.0 100 08/12/19 16:00 98.6 79 22 144/100 (115) 93 08/12/19 15:12 93 High Flow 40.0 100 08/12/19 15:00 78 23 115/59 (77) 96 08/12/19 14:00 89 22 149/90 (109) 97 08/12/19 13:00 91 31 140/92 (108) 96 08/12/19 12:15 Nasal Cannula 40.0 100 08/12/19 12:15 92 High Flow 40.0 100 08/12/19 12:00 Nasal Cannula 40.0 Nasal Cannula 40.0 08/12/19 12:00 40.0 100 08/12/19 12:00 98.8 88 28 137/90 (106) 89 08/12/19 12:00 81 08/12/19 11:00 86 25 150/104 (119) 98 08/12/19 11:00 20 150/104 Mechanical Ventilator 100 Intake and Output 08/12/19 08/13/19 19:00 07:00 Intake Total 159.988 ml 55 ml Output Total 730 ml 550 ml Balance -570.012 ml -495 ml IV Total 54.988 ml 55 ml Tube Feeding 105 ml Output Urine Total 730 ml 550 ml # Bowel Movements 1 General Appearance: no acute distress HEENT: normocephalic Respiratory/Chest: chest wall non-tender Cardiovascular: normal peripheral pulses, normal rate Abdomen: normal bowel sounds Laboratory Tests 08/12/19 11:35: Arterial Blood pH 7.351, Arterial Blood Partial Pressure CO2 62.0*H, Arterial Blood Partial Pressure O2 58.9L, Arterial Blood HCO3 33.5H, Arterial Blood Oxygen Saturation 88.9*L, Arterial Blood Base Excess 5.5H, [place] Test Positive 08/12/19 13:20: Arterial Blood pH 7.345L, Arterial Blood Partial Pressure CO2 62.9*H, Arterial Blood Partial Pressure O2 61.1L, Arterial Blood HCO3 33.6H, Arterial Blood Oxygen Saturation 90.2L, Arterial Blood Base Excess 5.4H, [place] Test Positive 08/13/19 05:10: White Blood Count 13.2H, Red Blood Count 6.02, Hemoglobin 16.0, Hematocrit 50.5 , Mean Corpuscular Volume 84, Mean Corpuscular Hemoglobin 26.5L, Mean Corpuscular Hemoglobin Concent 31.6L, Red Cell Distribution Width 13.8, Platelet Count 199, Mean Platelet Volume 7.0, Neutrophils (%) (Auto) 81.3H, Lymphocytes (%) (Auto) 7.1L, Monocytes (%) (Auto) 8.9, Eosinophils (%) (Auto) 2.3, Basophils (%) (Auto) 0.4, Sodium Level 146H, Potassium Level 3.8, Chloride Level 105, Carbon Dioxide Level 32, Anion Gap 9, Blood Urea Nitrogen 38H, Creatinine 1.3, Estimat Glomerular Filtration Rate > 60, Glucose Level 121H, Uric Acid 4.5, Calcium Level 9.0, Phosphorus Level 3.7, Magnesium Level 2.1, Total Bilirubin 0.6, Aspartate Amino Transf (AST/SGOT) 24, Alanine Aminotransferase (ALT/SGPT) 25, Alkaline Phosphatase 70, C-Reactive Protein, Quantitative 3.0H, Pro-B-Type Natriuretic Peptide 472H, Total Protein 7.4, Albumin 3.0L, Globulin 4.4, Albumin/Globulin Ratio 0.7L Current Medications Medications (Trade) Dose Ordered Sig/Judy Route PRN Reason Start Time Stop Time Status Last Admin Dose Admin Artificial Tears (Akwa-Tears) 2 drop Q4H PRN BOTH EYES Dry Eyes 08/12/19 19:00 09/11/19 18:59 08/12/19 20:42 Chlorhexidine Gluconate (Jessenia-Hex 2%) 1 applic DAILY@2000 TOPIC 08/06/19 20:00 11/04/19 19:59 08/12/19 20:00 Clonidine HCl (Catapres Tab) 0.1 mg Q4H PRN GT SBP>170 08/09/19 11:15 11/05/19 12:59 Dextrose (Dextrose 50%) 25 ml Q30M PRN IV Hypoglycemia 08/06/19 10:30 11/04/19 10:29 Dextrose (Dextrose 50%) 50 ml Q30M PRN IV Hypoglycemia 08/06/19 10:30 11/04/19 10:29 Docusate Sodium (Colace) 100 mg THREE TIMES A DAY ORAL 08/13/19 09:00 09/12/19 08:59 Enoxaparin Sodium (Lovenox) 100 mg EVERY 12 HOURS SUBQ 08/11/19 21:00 11/09/19 20:59 08/13/19 08:10 Hydralazine HCl (Apresoline) 10 mg Q2H PRN IV SBP>170 08/07/19 13:00 11/05/19 12:59 Methylprednisolone Sodium Succinate (Solu-MEDROL) 40 mg DAILY IVP 08/13/19 09:00 11/06/19 11:19 08/13/19 08:09 Pantoprazole (Protonix) 40 mg EVERY 12 HOURS ORAL 08/13/19 21:00 09/12/19 20:59 Mitchell Cassidy MD Aug 13, 2019 10:35
--- NOTE | 2019-08-13 13:23 | Cardiac Electrophysiology PN ---
Assessment/Plan Assessment/Plan 1. Respiratory failure due to combination of CHF,COPD, PNA and possible PE. His BNP is more than 5000. EF 55% with nl PAP. Extubated Ruled out for [facility]. On Lovenox 100 bid for possible PE. 2. PNA Covid is negative, under management of Dr. Cassidy on Solumedrol Off ceftriaxone and azithromycin. 3. ARF. 4. COPD. JAKE RN Subjective Subjective In ICU on 55 liter high flow nasal cannula after extubated yesterday. Covid test negativex2. ECHO Nl EF Objective Last 24 Hour Vital Signs Date Time Temp Pulse Resp B/P (MAP) Pulse Ox O2 Delivery O2 Flow Rate FiO2 08/13/19 13:00 106 29 134/79 (97) 84 08/13/19 12:00 86 08/13/19 12:00 Nasal Cannula 55.0 Nasal Cannula 55.0 08/13/19 12:00 98.8 85 22 128/104 (112) 87 08/13/19 11:55 94 High Flow 55.0 100 08/13/19 11:00 86 18 153/81 (105) 88 08/13/19 10:00 89 18 141/84 (103) 91 08/13/19 10:00 55.0 100 08/13/19 09:00 87 21 102/84 (90) 90 08/13/19 08:00 Nasal Cannula 40.0 Nasal Cannula 40.0 08/13/19 08:00 86 08/13/19 08:00 40.0 100 08/13/19 08:00 80 20 129/86 (100) 86 08/13/19 07:50 93 High Flow 40.0 100 08/13/19 07:00 76 29 125/83 (97) 92 08/13/19 06:00 81 30 145/95 (112) 92 08/13/19 05:00 84 22 121/87 (98) 91 08/13/19 04:12 88 High Flow 40.0 100 08/13/19 04:00 88 08/13/19 04:00 98.6 84 27 130/88 (102) 90 08/13/19 04:00 Nasal Cannula 40.0 Nasal Cannula 40.0 08/13/19 03:00 79 19 130/72 (91) 96 08/13/19 02:00 81 29 130/70 (90) 98 08/13/19 01:00 72 27 150/94 (112) 95 08/13/19 00:00 86 08/13/19 00:00 78 23 151/96 (114) 90 08/13/19 00:00 Nasal Cannula 40.0 Nasal Cannula 40.0 08/13/19 00:00 40.0 100 08/12/19 23:56 89 High Flow 40.0 100 08/12/19 23:00 98.8 76 26 128/79 (95) 93 08/12/19 22:00 89 19 115/96 (102) 91 08/12/19 21:00 90 08/12/19 21:00 82 19 160/100 (120) 91 08/12/19 20:55 90 High Flow 40.0 100 08/12/19 20:00 40.0 100 08/12/19 20:00 Nasal Cannula 40.0 Nasal Cannula 40.0 08/12/19 20:00 79 16 143/117 (126) 92 08/12/19 19:00 82 132/83 (99) 94 08/12/19 18:00 82 19 145/92 (109) 92 08/12/19 17:00 86 156/98 (117) 89 08/12/19 16:00 81 08/12/19 16:00 Nasal Cannula 40.0 Nasal Cannula 40.0 08/12/19 16:00 40.0 100 08/12/19 16:00 98.6 79 22 144/100 (115) 93 08/12/19 15:12 93 High Flow 40.0 100 08/12/19 15:00 78 23 115/59 (77) 96 08/12/19 14:00 89 22 149/90 (109) 97 Intake and Output 08/12/19 08/13/19 19:00 07:00 Intake Total 159.988 ml 55 ml Output Total 730 ml 550 ml Balance -570.012 ml -495 ml IV Total 54.988 ml 55 ml Tube Feeding 105 ml Output Urine Total 730 ml 550 ml # Bowel Movements 1 Laboratory Tests Test 08/13/19 05:10 White Blood Count 13.2 K/UL (4.8-10.8) H Red Blood Count 6.02 M/UL (4.70-6.10) Hemoglobin 16.0 G/DL (14.2-18.0) Hematocrit 50.5 % (42.0-52.0) Mean Corpuscular Volume 84 FL (80-99) Mean Corpuscular Hemoglobin 26.5 PG (27.0-31.0) L Mean Corpuscular Hemoglobin Concent 31.6 G/DL (32.0-36.0) L Red Cell Distribution Width 13.8 % (11.6-14.8) Platelet Count 199 K/UL (150-450) Mean Platelet Volume 7.0 FL (6.5-10.1) Neutrophils (%) (Auto) 81.3 % (45.0-75.0) H Lymphocytes (%) (Auto) 7.1 % (20.0-45.0) L Monocytes (%) (Auto) 8.9 % (1.0-10.0) Eosinophils (%) (Auto) 2.3 % (0.0-3.0) Basophils (%) (Auto) 0.4 % (0.0-2.0) Sodium Level 146 MMOL/L (136-145) H Potassium Level 3.8 MMOL/L (3.5-5.1) Chloride Level 105 MMOL/L (98-107) Carbon Dioxide Level 32 MMOL/L (21-32) Anion Gap 9 mmol/L (5-15) Blood Urea Nitrogen 38 mg/dL (7-18) H Creatinine 1.3 MG/DL (0.55-1.30) Estimat Glomerular Filtration Rate > 60 mL/min (>60) Glucose Level 121 MG/DL (74-106) H Uric Acid 4.5 MG/DL (2.6-7.2) Calcium Level 9.0 MG/DL (8.5-10.1) Phosphorus Level 3.7 MG/DL (2.5-4.9) Magnesium Level 2.1 MG/DL (1.8-2.4) Total Bilirubin 0.6 MG/DL (0.2-1.0) Aspartate Amino Transf (AST/SGOT) 24 U/L (15-37) Alanine Aminotransferase (ALT/SGPT) 25 U/L (12-78) Alkaline Phosphatase 70 U/L (46-116) C-Reactive Protein, Quantitative 3.0 mg/dL (0.00-0.90) H Pro-B-Type Natriuretic Peptide 472 pg/mL (0-125) H Total Protein 7.4 G/DL (6.4-8.2) Albumin 3.0 G/DL (3.4-5.0) L Globulin 4.4 g/dL Albumin/Globulin Ratio 0.7 (1.0-2.7) L Objective HEAD AND NECK: No JVD. LUNGS: Coarse rhonchi bilaterally. CARDIOVASCULAR: Shows regular S1 and S2 with no gallop or murmur. ABDOMEN: Soft. EXTREMITIES: He has 1+ pitting edema. Livan Parker MD Aug 13, 2019 13:23
--- NOTE | 2019-08-13 20:33 | General Progress Note ---
Assessment/Plan Problem List: (1) Respiratory failure ICD Codes: J96.90 - Respiratory failure, unspecified, unspecified whether with hypoxia or hypercapnia SNOMED: 029487325 (2) CHF exacerbation ICD Codes: I50.9 - Heart failure, unspecified SNOMED: 447287743, 27406329049087 (3) COPD exacerbation ICD Codes: J44.1 - Chronic obstructive pulmonary disease with (acute) exacerbation SNOMED: 840042583 (4) Acute respiratory failure ICD Codes: J96.00 - Acute respiratory failure, unspecified whether with hypoxia or hypercapnia SNOMED: 58831029 (5) ATN (acute tubular necrosis) ICD Codes: N17.0 - Acute kidney failure with tubular necrosis SNOMED: 32647930 (6) Nephrotic syndrome ICD Codes: N04.9 - Nephrotic syndrome with unspecified morphologic changes SNOMED: 21411163 Status: progressing, unchanged Assessment/Plan: chf edema no wheezing resp insuff off icu copd no acute events clinicaly improving reviewed chart and labs Subjective ROS Limited/Unobtainable: Yes Allergies: Coded Allergies: No Known Allergies (Unverified , 07/23/16) Objective Last 24 Hour Vital Signs Date Time Temp Pulse Resp B/P (MAP) Pulse Ox O2 Delivery O2 Flow Rate FiO2 08/13/19 19:58 95 High Flow 55.0 100 08/13/19 18:00 84 15 127/82 (97) 96 08/13/19 17:00 81 13 125/61 (82) 93 08/13/19 16:00 Nasal Cannula 55.0 Nasal Cannula 55.0 08/13/19 16:00 84 08/13/19 16:00 55.0 100 08/13/19 16:00 98.6 95 22 141/88 (105) 90 08/13/19 15:01 93 High Flow 55.0 100 08/13/19 15:00 84 27 125/83 (97) 94 08/13/19 14:00 90 21 133/81 (98) 98 08/13/19 13:00 106 29 134/79 (97) 84 08/13/19 12:00 86 08/13/19 12:00 Nasal Cannula 55.0 Nasal Cannula 55.0 08/13/19 12:00 98.8 85 22 128/104 (112) 87 08/13/19 11:55 94 High Flow 55.0 100 08/13/19 11:00 86 18 153/81 (105) 88 08/13/19 10:00 89 18 141/84 (103) 91 08/13/19 10:00 55.0 100 08/13/19 09:00 87 21 102/84 (90) 90 08/13/19 08:00 Nasal Cannula 40.0 Nasal Cannula 40.0 08/13/19 08:00 86 08/13/19 08:00 40.0 100 08/13/19 08:00 80 20 129/86 (100) 86 08/13/19 07:50 93 High Flow 40.0 100 08/13/19 07:00 76 29 125/83 (97) 92 08/13/19 06:00 81 30 145/95 (112) 92 08/13/19 05:00 84 22 121/87 (98) 91 08/13/19 04:12 88 High Flow 40.0 100 08/13/19 04:00 88 08/13/19 04:00 98.6 84 27 130/88 (102) 90 08/13/19 04:00 Nasal Cannula 40.0 Nasal Cannula 40.0 08/13/19 03:00 79 19 130/72 (91) 96 08/13/19 02:00 81 29 130/70 (90) 98 08/13/19 01:00 72 27 150/94 (112) 95 08/13/19 00:00 86 08/13/19 00:00 78 23 151/96 (114) 90 08/13/19 00:00 Nasal Cannula 40.0 Nasal Cannula 40.0 08/13/19 00:00 40.0 100 08/12/19 23:56 89 High Flow 40.0 100 08/12/19 23:00 98.8 76 26 128/79 (95) 93 08/12/19 22:00 89 19 115/96 (102) 91 08/12/19 21:00 90 08/12/19 21:00 82 19 160/100 (120) 91 08/12/19 20:55 90 High Flow 40.0 100 Intake and Output 08/12/19 08/13/19 19:00 07:00 Intake Total 159.988 ml 55 ml Output Total 730 ml 550 ml Balance -570.012 ml -495 ml IV Total 54.988 ml 55 ml Tube Feeding 105 ml Output Urine Total 730 ml 550 ml # Bowel Movements 1 Laboratory Tests 08/13/19 05:10: White Blood Count 13.2H, Red Blood Count 6.02, Hemoglobin 16.0, Hematocrit 50.5 , Mean Corpuscular Volume 84, Mean Corpuscular Hemoglobin 26.5L, Mean Corpuscular Hemoglobin Concent 31.6L, Red Cell Distribution Width 13.8, Platelet Count 199, Mean Platelet Volume 7.0, Neutrophils (%) (Auto) 81.3H, Lymphocytes (%) (Auto) 7.1L, Monocytes (%) (Auto) 8.9, Eosinophils (%) (Auto) 2.3, Basophils (%) (Auto) 0.4, Sodium Level 146H, Potassium Level 3.8, Chloride Level 105, Carbon Dioxide Level 32, Anion Gap 9, Blood Urea Nitrogen 38H, Creatinine 1.3, Estimat Glomerular Filtration Rate > 60, Glucose Level 121H, Uric Acid 4.5, Calcium Level 9.0, Phosphorus Level 3.7, Magnesium Level 2.1, Total Bilirubin 0.6, Aspartate Amino Transf (AST/SGOT) 24, Alanine Aminotransferase (ALT/SGPT) 25, Alkaline Phosphatase 70, C-Reactive Protein, Quantitative 3.0H, Pro-B-Type Natriuretic Peptide 472H, Total Protein 7.4, Albumin 3.0L, Globulin 4.4, Albumin/Globulin Ratio 0.7L 08/13/19 15:56: Arterial Blood pH 7.339L, Arterial Blood Partial Pressure CO2 61.8*H, Arterial Blood Partial Pressure O2 69.9L, Arterial Blood HCO3 32.5H, Arterial Blood Oxygen Saturation 93.0L, Arterial Blood Base Excess 4.6H, [place] Test Positive Height (Feet): 6 Height (Inches): 1.00 Weight (Pounds): 210 Santi Ortez MD Aug 13, 2019 20:33
[2019-08-13] MEDS: Dyna-Hex 2% Top Sol 2oz TOPIC SCH (20:45)
[2019-08-14] VITALS: BP 125/73
[2019-08-14 04:00] VITALS: BP 144/88
[2019-08-14 08:00] VITALS: BP 135/67
[2019-08-14] MEDS: Docusate 100mg cap ORAL SCH ×3 (09:19→18:00)
[2019-08-14] MEDS: Solu-MEDROL 40mg Inj IVP SCH (09:19)
[2019-08-14] MEDS: Enoxaparin 100mg Inj SUBQ SCH ×2 (09:26→21:00)
--- NOTE | 2019-08-14 10:01 | Nephrology Progress Note ---
Assessment/Plan Problem List: (1) CAITLIN (acute kidney injury) (2) Hypokalemia (3) Acute respiratory failure (4) CHF (congestive heart failure) (5) COPD exacerbation Assessment Acute respiratory failure requiring intubation and mechanical ventilation , currently on FiO2 of 70% CHF (congestive heart failure), exacerbation COPD exacerbation Lymphopenia Plan Today's labs are reviewed Off Diamox and potassium supplement serum creatinine down to 1.3 Stable from renal standpoint to view Vent management per pulmonary NG tube Change feeding to Nepro Continue to monitor renal parameters IV Protonix Antibiotics Steroids is being continued 2D echocardiogram ejection fraction 55% Monitor urine output and renal parameters Monitor immunoresponse parameters Per orders Subjective ROS Limited/Unobtainable: No Objective Objective Last 24 Hour Vital Signs Date Time Temp Pulse Resp B/P (MAP) Pulse Ox O2 Delivery O2 Flow Rate FiO2 08/14/19 09:30 96 High Flow 55.0 100 08/14/19 04:00 97.7 79 20 144/88 (106) 98 08/14/19 04:00 81 08/14/19 04:00 55.0 100 08/14/19 02:55 95 High Flow 55.0 100 08/14/19 00:00 97.5 76 20 125/73 (90) 99 08/14/19 00:00 71 08/14/19 00:00 55.0 100 08/13/19 22:31 94 High Flow 55.0 100 08/13/19 20:00 55.0 100 08/13/19 20:00 97.7 82 20 139/78 (98) 94 08/13/19 20:00 82 08/13/19 19:58 95 High Flow 55.0 100 08/13/19 18:00 84 15 127/82 (97) 96 08/13/19 17:00 81 13 125/61 (82) 93 08/13/19 16:00 Nasal Cannula 55.0 Nasal Cannula 55.0 08/13/19 16:00 84 08/13/19 16:00 55.0 100 08/13/19 16:00 98.6 95 22 141/88 (105) 90 08/13/19 15:01 93 High Flow 55.0 100 08/13/19 15:00 84 27 125/83 (97) 94 08/13/19 14:00 90 21 133/81 (98) 98 08/13/19 13:00 106 29 134/79 (97) 84 08/13/19 12:00 86 08/13/19 12:00 Nasal Cannula 55.0 Nasal Cannula 55.0 08/13/19 12:00 98.8 85 22 128/104 (112) 87 08/13/19 11:55 94 High Flow 55.0 100 08/13/19 11:00 86 18 153/81 (105) 88 Intake and Output 08/13/19 08/14/19 19:00 07:00 Intake Total 240 ml Output Total 1320 ml 670 ml Balance -1080 ml -670 ml Intake Oral 240 ml Output Urine Total 1320 ml 670 ml # Bowel Movements 4 Laboratory Tests 08/13/19 15:56: Arterial Blood pH 7.339L, Arterial Blood Partial Pressure CO2 61.8*H, Arterial Blood Partial Pressure O2 69.9L, Arterial Blood HCO3 32.5H, Arterial Blood Oxygen Saturation 93.0L, Arterial Blood Base Excess 4.6H, [place] Test Positive Height (Feet): 6 Height (Inches): 1.00 Weight (Pounds): 212 General Appearance: no apparent distress, other - Alert and oriented EENT: other - On high flow oxygen nasally Cardiovascular: normal rate Respiratory/Chest: decreased breath sounds Ovi Byrnes MD Aug 14, 2019 10:01
--- NOTE | 2019-08-14 10:52 | Cardiac Electrophysiology PN ---
Assessment/Plan Assessment/Plan 1. Respiratory failure due to combination of CHF,COPD, PNA and possible PE. His BNP is more than 5000. EF 55% with nl PAP. Extubated Ruled out for [place]. On Lovenox 100 bid for possible PE. 2. PNA. Covid is negative, on Solumedrol off abx. Repeat CXR 3. ARF. Cr down to 1.3 4. COPD. DW RN Subjective Subjective In ICU on high flow nasal cannula. Covid test negativex2. No arrhythmias overnight. In SR ECHO Nl EF Objective Last 24 Hour Vital Signs Date Time Temp Pulse Resp B/P (MAP) Pulse Ox O2 Delivery O2 Flow Rate FiO2 08/14/19 09:30 96 High Flow 55.0 100 08/14/19 04:00 97.7 79 20 144/88 (106) 98 08/14/19 04:00 81 08/14/19 04:00 55.0 100 08/14/19 02:55 95 High Flow 55.0 100 08/14/19 00:00 97.5 76 20 125/73 (90) 99 08/14/19 00:00 71 08/14/19 00:00 55.0 100 08/13/19 22:31 94 High Flow 55.0 100 08/13/19 20:00 55.0 100 08/13/19 20:00 97.7 82 20 139/78 (98) 94 08/13/19 20:00 82 08/13/19 19:58 95 High Flow 55.0 100 08/13/19 18:00 84 15 127/82 (97) 96 08/13/19 17:00 81 13 125/61 (82) 93 08/13/19 16:00 Nasal Cannula 55.0 Nasal Cannula 55.0 08/13/19 16:00 84 08/13/19 16:00 55.0 100 08/13/19 16:00 98.6 95 22 141/88 (105) 90 08/13/19 15:01 93 High Flow 55.0 100 08/13/19 15:00 84 27 125/83 (97) 94 08/13/19 14:00 90 21 133/81 (98) 98 08/13/19 13:00 106 29 134/79 (97) 84 08/13/19 12:00 86 08/13/19 12:00 Nasal Cannula 55.0 Nasal Cannula 55.0 08/13/19 12:00 98.8 85 22 128/104 (112) 87 08/13/19 11:55 94 High Flow 55.0 100 08/13/19 11:00 86 18 153/81 (105) 88 Intake and Output 08/13/19 08/14/19 19:00 07:00 Intake Total 240 ml Output Total 1320 ml 670 ml Balance -1080 ml -670 ml Intake Oral 240 ml Output Urine Total 1320 ml 670 ml # Bowel Movements 4 Laboratory Tests Test 08/13/19 15:56 Arterial Blood pH 7.339 (7.350-7.450) Arterial Blood Partial Pressure CO2 61.8 mmHg (35.0-45.0) *H Arterial Blood Partial Pressure O2 69.9 mmHg (75.0-100.0) L Arterial Blood HCO3 32.5 mmol/L (22.0-26.0) H Arterial Blood Oxygen Saturation 93.0 % (95-100) L Arterial Blood Base Excess 4.6 (-2-2) H [place] Test Positive Objective HEAD AND NECK: No JVD. High flow oxygen in place LUNGS: Coarse rhonchi bilaterally. CARDIOVASCULAR: Regular S1 and S2 with no gallop or murmur. ABDOMEN: Soft. EXTREMITIES: 1+ pitting edema. Livan Parker MD Aug 14, 2019 10:52
--- NOTE | 2019-08-14 11:06 | Hematology/Onc Progress Note ---
Assessment/Plan Assessment/Plan # Elevated d-dimer -- multiple etiologies, but may be due to CHF,COPD, PNA and possible PE. --> His BNP is more than 5000. EF 55% with nl PAP. Extubated also --> remains on On Lovenox 100 bid for possible PE --> duplex lower legs orerded # Leukocytosis may be due to PNA. Covid is negative, on Solumedrol off abx. ==> Repeat CXR as needed --> steriods per pulm # ARF. Cr down to 1.3 --> as per Dr. Byrnes # COPD without exacerbation # Dvt ppx lovenox Appreciate consultation and fannie rn Subjective HEENT: Denies: no symptoms, eye pain, blurred vision, tearing, double vision, ear pain, ear discharge, nose pain, nose congestion, throat pain, throat swelling, mouth pain, mouth swelling, other Cardiovascular: Denies: no symptoms, chest pain, edema, irregular heart rate, lightheadedness, palpitations, syncope, other Respiratory: Denies: no symptoms, cough, shortness of breath, SOB with excertion, SOB at rest, sputum, wheezing, other Gastrointestinal/Abdominal: Denies: no symptoms, abdomen distended, abdominal pain, black stools, tarry stools, blood in stool, constipated, diarrhea, difficulty swallowing, nausea, poor appetite, poor fluid intake, rectal bleeding , vomiting, other Genitourinary: Denies: no symptoms, burning, discharge, frequency, flank pain, hematuria, incontinence, pain, urgency, other Allergies: Coded Allergies: No Known Allergies (Unverified , 07/23/16) Subjective 08/13 labs have been reviewed, no bleeding, duplex ordered Objective Objective Current Medications Medications (Trade) Dose Ordered Sig/Judy Route PRN Reason Start Time Stop Time Status Last Admin Dose Admin Artificial Tears (Akwa-Tears) 2 drop Q4H PRN BOTH EYES Dry Eyes 08/13/19 18:23 09/12/19 18:22 Chlorhexidine Gluconate (Jessenia-Hex 2%) 1 applic DAILY@1999 TOPIC 08/13/19 20:00 11/04/19 19:59 08/13/19 20:45 Clonidine HCl (Catapres Tab) 0.1 mg Q4H PRN ORAL SBP>170 08/13/19 18:30 11/11/19 18:22 Dextrose (Dextrose 50%) 25 ml Q30M PRN IV Hypoglycemia 08/13/19 18:30 11/04/19 10:29 Dextrose (Dextrose 50%) 50 ml Q30M PRN IV Hypoglycemia 08/13/19 18:30 11/04/19 10:29 Docusate Sodium (Colace) 100 mg THREE TIMES A DAY ORAL 08/14/19 09:00 09/12/19 08:59 08/14/19 09:19 Enoxaparin Sodium (Lovenox) 100 mg EVERY 12 HOURS SUBQ 08/13/19 21:00 11/09/19 20:59 08/14/19 09:26 Hydralazine HCl (Apresoline) 10 mg Q2H PRN IV SBP>170 08/13/19 18:23 11/11/19 18:22 Methylprednisolone Sodium Succinate (Solu-MEDROL) 40 mg DAILY IVP 08/14/19 09:00 11/06/19 11:19 08/14/19 09:19 Pantoprazole (Protonix) 40 mg EVERY 12 HOURS ORAL 08/13/19 21:00 09/12/19 20:59 08/14/19 09:19 Last 24 Hour Vital Signs Date Time Temp Pulse Resp B/P (MAP) Pulse Ox O2 Delivery O2 Flow Rate FiO2 08/14/19 09:30 96 High Flow 55.0 100 08/14/19 04:00 97.7 79 20 144/88 (106) 98 08/14/19 04:00 81 08/14/19 04:00 55.0 100 08/14/19 02:55 95 High Flow 55.0 100 08/14/19 00:00 97.5 76 20 125/73 (90) 99 08/14/19 00:00 71 08/14/19 00:00 55.0 100 08/13/19 22:31 94 High Flow 55.0 100 08/13/19 20:00 55.0 100 08/13/19 20:00 97.7 82 20 139/78 (98) 94 08/13/19 20:00 82 08/13/19 19:58 95 High Flow 55.0 100 08/13/19 18:00 84 15 127/82 (97) 96 08/13/19 17:00 81 13 125/61 (82) 93 08/13/19 16:00 Nasal Cannula 55.0 Nasal Cannula 55.0 08/13/19 16:00 84 08/13/19 16:00 55.0 100 08/13/19 16:00 98.6 95 22 141/88 (105) 90 08/13/19 15:01 93 High Flow 55.0 100 08/13/19 15:00 84 27 125/83 (97) 94 08/13/19 14:00 90 21 133/81 (98) 98 08/13/19 13:00 106 29 134/79 (97) 84 08/13/19 12:00 86 08/13/19 12:00 Nasal Cannula 55.0 Nasal Cannula 55.0 08/13/19 12:00 98.8 85 22 128/104 (112) 87 08/13/19 11:55 94 High Flow 55.0 100 08/13/19 11:00 86 18 153/81 (105) 88 08/13/19 10:00 89 18 141/84 (103) 91 08/13/19 10:00 55.0 100 08/13/19 09:00 87 21 102/84 (90) 90 08/13/19 08:00 Nasal Cannula 40.0 Nasal Cannula 40.0 08/13/19 08:00 86 08/13/19 08:00 40.0 100 08/13/19 08:00 80 20 129/86 (100) 86 08/13/19 07:50 93 High Flow 40.0 100 08/13/19 07:00 76 29 125/83 (97) 92 08/13/19 06:00 81 30 145/95 (112) 92 08/13/19 05:00 84 22 121/87 (98) 91 08/13/19 04:12 88 High Flow 40.0 100 08/13/19 04:00 88 08/13/19 04:00 98.6 84 27 130/88 (102) 90 08/13/19 04:00 Nasal Cannula 40.0 Nasal Cannula 40.0 08/13/19 03:00 79 19 130/72 (91) 96 08/13/19 02:00 81 29 130/70 (90) 98 08/13/19 01:00 72 27 150/94 (112) 95 08/13/19 00:00 86 08/13/19 00:00 78 23 151/96 (114) 90 08/13/19 00:00 Nasal Cannula 40.0 Nasal Cannula 40.0 08/13/19 00:00 40.0 100 08/12/19 23:56 89 High Flow 40.0 100 08/12/19 23:00 98.8 76 26 128/79 (95) 93 08/12/19 22:00 89 19 115/96 (102) 91 08/12/19 21:00 90 08/12/19 21:00 82 19 160/100 (120) 91 08/12/19 20:55 90 High Flow 40.0 100 08/12/19 20:00 40.0 100 08/12/19 20:00 Nasal Cannula 40.0 Nasal Cannula 40.0 08/12/19 20:00 79 16 143/117 (126) 92 08/12/19 19:00 82 132/83 (99) 94 08/12/19 18:00 82 19 145/92 (109) 92 08/12/19 17:00 86 156/98 (117) 89 08/12/19 16:00 81 08/12/19 16:00 Nasal Cannula 40.0 Nasal Cannula 40.0 08/12/19 16:00 40.0 100 08/12/19 16:00 98.6 79 22 144/100 (115) 93 08/12/19 15:12 93 High Flow 40.0 100 08/12/19 15:00 78 23 115/59 (77) 96 08/12/19 14:00 89 22 149/90 (109) 97 08/12/19 13:00 91 31 140/92 (108) 96 08/12/19 12:15 Nasal Cannula 40.0 100 08/12/19 12:15 92 High Flow 40.0 100 08/12/19 12:00 Nasal Cannula 40.0 Nasal Cannula 40.0 08/12/19 12:00 40.0 100 08/12/19 12:00 98.8 88 28 137/90 (106) 89 08/12/19 12:00 81 Intake and Output 08/13/19 08/14/19 19:00 07:00 Intake Total 240 ml Output Total 1320 ml 670 ml Balance -1080 ml -670 ml Intake Oral 240 ml Output Urine Total 1320 ml 670 ml # Bowel Movements 4 Labs Test 08/12/19 11:35 08/12/19 13:20 08/13/19 05:10 08/13/19 15:56 Arterial Blood pH 7.351 (7.350-7.450) 7.345 (7.350-7.450) 7.339 (7.350-7.450) Arterial Blood Partial Pressure CO2 62.0 mmHg (35.0-45.0) 62.9 mmHg (35.0-45.0) 61.8 mmHg (35.0-45.0) Arterial Blood Partial Pressure O2 58.9 mmHg (75.0-100.0) 61.1 mmHg (75.0-100.0) 69.9 mmHg (75.0-100.0) Arterial Blood HCO3 33.5 mmol/L (22.0-26.0) 33.6 mmol/L (22.0-26.0) 32.5 mmol/L (22.0-26.0) Arterial Blood Oxygen Saturation 88.9 % (95-100) 90.2 % (95-100) 93.0 % (95-100) Arterial Blood Base Excess 5.5 (-2-2) 5.4 (-2-2) 4.6 (-2-2) [place] Test Positive Positive Positive White Blood Count 13.2 K/UL (4.8-10.8) Red Blood Count 6.02 M/UL (4.70-6.10) Hemoglobin 16.0 G/DL (14.2-18.0) Hematocrit 50.5 % (42.0-52.0) Mean Corpuscular Volume 84 FL (80-99) Mean Corpuscular Hemoglobin 26.5 PG (27.0-31.0) Mean Corpuscular Hemoglobin Concent 31.6 G/DL (32.0-36.0) Red Cell Distribution Width 13.8 % (11.6-14.8) Platelet Count 199 K/UL (150-450) Mean Platelet Volume 7.0 FL (6.5-10.1) Neutrophils (%) (Auto) 81.3 % (45.0-75.0) Lymphocytes (%) (Auto) 7.1 % (20.0-45.0) Monocytes (%) (Auto) 8.9 % (1.0-10.0) Eosinophils (%) (Auto) 2.3 % (0.0-3.0) Basophils (%) (Auto) 0.4 % (0.0-2.0) Sodium Level 146 MMOL/L (136-145) Potassium Level 3.8 MMOL/L (3.5-5.1) Chloride Level 105 MMOL/L (98-107) Carbon Dioxide Level 32 MMOL/L (21-32) Anion Gap 9 mmol/L (5-15) Blood Urea Nitrogen 38 mg/dL (7-18) Creatinine 1.3 MG/DL (0.55-1.30) Estimat Glomerular Filtration Rate > 60 mL/min (>60) Glucose Level 121 MG/DL (74-106) Uric Acid 4.5 MG/DL (2.6-7.2) Calcium Level 9.0 MG/DL (8.5-10.1) Phosphorus Level 3.7 MG/DL (2.5-4.9) Magnesium Level 2.1 MG/DL (1.8-2.4) Total Bilirubin 0.6 MG/DL (0.2-1.0) Aspartate Amino Transf (AST/SGOT) 24 U/L (15-37) Alanine Aminotransferase (ALT/SGPT) 25 U/L (12-78) Alkaline Phosphatase 70 U/L (46-116) C-Reactive Protein, Quantitative 3.0 mg/dL (0.00-0.90) Pro-B-Type Natriuretic Peptide 472 pg/mL (0-125) Total Protein 7.4 G/DL (6.4-8.2) Albumin 3.0 G/DL (3.4-5.0) Globulin 4.4 g/dL Albumin/Globulin Ratio 0.7 (1.0-2.7) Height (Feet): 6 Height (Inches): 1.00 Weight (Pounds): 212 Objective Physical Exam: Vitals: reviewed General: NAD HEENT: nc, at Neck: supple Chest: clear breath sounds bilaterally Cardiovascular: RRR, no s3, s4 Neuro: alert and oriented Juanito Castellanos MD Aug 14, 2019 11:06
--- NOTE | 2019-08-14 11:09 | Infectious Diseases Prog Note ---
Assessment/Plan Assessment/Plan IMPRESSION: COPD exacerbation, Hypercapnic respiratory failure CHF exacerbation, Diastolic Hypertension, Pulmonary hypertension, Chronic kidney disease, sleep apnea. RECOMMENDATION: Observe off antibiotic Negative COVID19 tests X 2 sputum culture: normal fly Subjective ROS Limited/Unobtainable: No Constitutional: Reports: other - doing better transferred from ICU to telemetry Respiratory: Reports: productive cough Gastrointestinal/Abdominal: Reports: no symptoms Genitourinary: Reports: no symptoms Allergies: Coded Allergies: No Known Allergies (Unverified , 07/23/16) Objective Vital Signs Last 24 Hour Vital Signs Date Time Temp Pulse Resp B/P (MAP) Pulse Ox O2 Delivery O2 Flow Rate FiO2 08/14/19 09:30 96 High Flow 55.0 100 08/14/19 04:00 97.7 79 20 144/88 (106) 98 08/14/19 04:00 81 08/14/19 04:00 55.0 100 08/14/19 02:55 95 High Flow 55.0 100 08/14/19 00:00 97.5 76 20 125/73 (90) 99 08/14/19 00:00 71 08/14/19 00:00 55.0 100 08/13/19 22:31 94 High Flow 55.0 100 08/13/19 20:00 55.0 100 08/13/19 20:00 97.7 82 20 139/78 (98) 94 08/13/19 20:00 82 08/13/19 19:58 95 High Flow 55.0 100 08/13/19 18:00 84 15 127/82 (97) 96 08/13/19 17:00 81 13 125/61 (82) 93 08/13/19 16:00 Nasal Cannula 55.0 Nasal Cannula 55.0 08/13/19 16:00 84 08/13/19 16:00 55.0 100 08/13/19 16:00 98.6 95 22 141/88 (105) 90 08/13/19 15:01 93 High Flow 55.0 100 08/13/19 15:00 84 27 125/83 (97) 94 08/13/19 14:00 90 21 133/81 (98) 98 08/13/19 13:00 106 29 134/79 (97) 84 08/13/19 12:00 86 08/13/19 12:00 Nasal Cannula 55.0 Nasal Cannula 55.0 08/13/19 12:00 98.8 85 22 128/104 (112) 87 08/13/19 11:55 94 High Flow 55.0 100 Height (Feet): 6 Height (Inches): 1.00 Weight (Pounds): 212 General Appearance: no acute distress HEENT: mucous membranes moist Respiratory/Chest: decreased breath sounds Cardiovascular: normal rate Abdomen: soft, non tender Extremities: no edema Neurologic/Psychiatric: alert, oriented x 3, responsive Laboratory Tests Test 08/13/19 15:56 Arterial Blood pH 7.339 (7.350-7.450) Arterial Blood Partial Pressure CO2 61.8 mmHg (35.0-45.0) *H Arterial Blood Partial Pressure O2 69.9 mmHg (75.0-100.0) L Arterial Blood HCO3 32.5 mmol/L (22.0-26.0) H Arterial Blood Oxygen Saturation 93.0 % (95-100) L Arterial Blood Base Excess 4.6 (-2-2) H [place] Test Positive Current Medications Medications (Trade) Dose Ordered Sig/Judy Route PRN Reason Start Time Stop Time Status Last Admin Dose Admin Artificial Tears (Akwa-Tears) 2 drop Q4H PRN BOTH EYES Dry Eyes 08/13/19 18:23 09/12/19 18:22 Chlorhexidine Gluconate (Jessenia-Hex 2%) 1 applic DAILY@2000 TOPIC 08/13/19 20:00 11/04/19 19:59 08/13/19 20:45 Clonidine HCl (Catapres Tab) 0.1 mg Q4H PRN ORAL SBP>170 08/13/19 18:30 11/11/19 18:22 Dextrose (Dextrose 50%) 25 ml Q30M PRN IV Hypoglycemia 08/13/19 18:30 11/04/19 10:29 Dextrose (Dextrose 50%) 50 ml Q30M PRN IV Hypoglycemia 08/13/19 18:30 11/04/19 10:29 Docusate Sodium (Colace) 100 mg THREE TIMES A DAY ORAL 08/14/19 09:00 09/12/19 08:59 08/14/19 09:19 Enoxaparin Sodium (Lovenox) 100 mg EVERY 12 HOURS SUBQ 08/13/19 21:00 11/09/19 20:59 08/14/19 09:26 Hydralazine HCl (Apresoline) 10 mg Q2H PRN IV SBP>170 08/13/19 18:23 11/11/19 18:22 Methylprednisolone Sodium Succinate (Solu-MEDROL) 40 mg DAILY IVP 08/14/19 09:00 11/06/19 11:19 08/14/19 09:19 Pantoprazole (Protonix) 40 mg EVERY 12 HOURS ORAL 08/13/19 21:00 09/12/19 20:59 08/14/19 09:19 Jesús Rose MD Aug 14, 2019 11:09
--- NOTE | 2019-08-14 11:18 | Pulmonology Progress Note ---
Assessment/Plan Assessment/Plan IMPRESSION: 1. Decompensated congestive heart failure. 2. COPD with exacerbation 3. Respiratory failure. Now extubated. 4. Obesity. 5. Acute on chronic respiratory acidosis. DISCUSSION: Off lasix; dc Diamox On steroids Continue broad-spectrum antibiotics. Continue high flow O2 Continue full dose Lovenox Discussed with team regarding possibly initiating full dose anticoagulation for suspected PE. He has refractory hypoxemia and clear CXR. However ECHO is not suggestive of PE Will need CT chest with contrast to rule out PE Mitchell Cassidy M.D. Subjective Interval Events: Transferred to [facility]; remains on Hi flow O2 Constitutional: Reports: no symptoms HEENT: Repors: no symptoms Respiratory: Reports: no symptoms Cardiovascular: Reports: no symptoms Allergies: Coded Allergies: No Known Allergies (Unverified , 07/23/16) Objective Last 24 Hour Vital Signs Date Time Temp Pulse Resp B/P (MAP) Pulse Ox O2 Delivery O2 Flow Rate FiO2 08/14/19 09:30 96 High Flow 55.0 100 08/14/19 04:00 97.7 79 20 144/88 (106) 98 08/14/19 04:00 81 08/14/19 04:00 55.0 100 08/14/19 02:55 95 High Flow 55.0 100 08/14/19 00:00 97.5 76 20 125/73 (90) 99 08/14/19 00:00 71 08/14/19 00:00 55.0 100 08/13/19 22:31 94 High Flow 55.0 100 08/13/19 20:00 55.0 100 08/13/19 20:00 97.7 82 20 139/78 (98) 94 08/13/19 20:00 82 08/13/19 19:58 95 High Flow 55.0 100 08/13/19 18:00 84 15 127/82 (97) 96 08/13/19 17:00 81 13 125/61 (82) 93 08/13/19 16:00 Nasal Cannula 55.0 Nasal Cannula 55.0 08/13/19 16:00 84 08/13/19 16:00 55.0 100 08/13/19 16:00 98.6 95 22 141/88 (105) 90 08/13/19 15:01 93 High Flow 55.0 100 08/13/19 15:00 84 27 125/83 (97) 94 08/13/19 14:00 90 21 133/81 (98) 98 08/13/19 13:00 106 29 134/79 (97) 84 08/13/19 12:00 86 08/13/19 12:00 Nasal Cannula 55.0 Nasal Cannula 55.0 08/13/19 12:00 98.8 85 22 128/104 (112) 87 08/13/19 11:55 94 High Flow 55.0 100 Intake and Output 08/13/19 08/14/19 19:00 07:00 Intake Total 240 ml Output Total 1320 ml 670 ml Balance -1080 ml -670 ml Intake Oral 240 ml Output Urine Total 1320 ml 670 ml # Bowel Movements 4 General Appearance: no acute distress HEENT: normocephalic Respiratory/Chest: chest wall non-tender Cardiovascular: normal peripheral pulses Abdomen: normal bowel sounds Laboratory Tests 08/13/19 15:56: Arterial Blood pH 7.339L, Arterial Blood Partial Pressure CO2 61.8*H, Arterial Blood Partial Pressure O2 69.9L, Arterial Blood HCO3 32.5H, Arterial Blood Oxygen Saturation 93.0L, Arterial Blood Base Excess 4.6H, [place] Test Positive Current Medications Medications (Trade) Dose Ordered Sig/Judy Route PRN Reason Start Time Stop Time Status Last Admin Dose Admin Artificial Tears (Akwa-Tears) 2 drop Q4H PRN BOTH EYES Dry Eyes 08/13/19 18:23 09/12/19 18:22 Chlorhexidine Gluconate (Jessenia-Hex 2%) 1 applic DAILY@1999 TOPIC 08/13/19 20:00 11/04/19 19:59 08/13/19 20:45 Clonidine HCl (Catapres Tab) 0.1 mg Q4H PRN ORAL SBP>170 08/13/19 18:30 11/11/19 18:22 Dextrose (Dextrose 50%) 25 ml Q30M PRN IV Hypoglycemia 08/13/19 18:30 11/04/19 10:29 Dextrose (Dextrose 50%) 50 ml Q30M PRN IV Hypoglycemia 08/13/19 18:30 11/04/19 10:29 Docusate Sodium (Colace) 100 mg THREE TIMES A DAY ORAL 08/14/19 09:00 09/12/19 08:59 08/14/19 09:19 Enoxaparin Sodium (Lovenox) 100 mg EVERY 12 HOURS SUBQ 08/13/19 21:00 11/09/19 20:59 08/14/19 09:26 Hydralazine HCl (Apresoline) 10 mg Q2H PRN IV SBP>170 08/13/19 18:23 11/11/19 18:22 Methylprednisolone Sodium Succinate (Solu-MEDROL) 40 mg DAILY IVP 08/14/19 09:00 11/06/19 11:19 08/14/19 09:19 Pantoprazole (Protonix) 40 mg EVERY 12 HOURS ORAL 08/13/19 21:00 09/12/19 20:59 08/14/19 09:19 Mitchell Cassidy MD Aug 14, 2019 11:18
[2019-08-14 12:00] VITALS: BP 136/85
--- NOTE | 2019-08-14 14:53 | Diagnostic Imaging Report ---
Indication: Bilateral leg pain Technique: Grayscale and duplex images of the bilateral lower extremity veins Comparison: Findings: Bilaterally, grayscale and duplex images demonstrate no evidence of intraluminal thrombus. Normal phasic Doppler waveforms, demonstrating normal augmentation response and no evidence of valvular insufficiency. Greater saphenous vein(s) and tibial veins are patent. Normal compressibility. Impression: Negative for evidence of lower extremity deep venous thrombosis bilaterally
--- NOTE | 2019-08-14 15:15 | Diagnostic Imaging Report ---
ndication: Shortness of breath Technique: IV administration nonionic contrast. Spiral acquisitions obtained from the lung bases to the lung apices. Multiplanar and 3-D reconstructions were generated. Total dose length product 569 mGycm. CTDIvol(s) one, 6, 16 mGy. Dose reduction achieved using automated exposure control Comparison: none Findings: There is good quality opacification of the pulmonary arteries. Linear filling defects are seen extending into the right middle lobe pulmonary artery as well as into the superior segment right lower lobe branch. No pulmonary arterial dilatation demonstrated. No right ventricular dilatation. No evidence of thoracic aortic aneurysm or dissection. Normal branching anatomy and caliber of the great neck vessels. The included abdominal visceral vessels appear unremarkable The lungs demonstrate areas of consolidation and/or atelectasis in the posterior right upper lobe, in the posterior and inferior right lower lobe, inferior left lower lobe. There is some linear atelectasis in left upper lobe. There is mosaic perfusion pattern involving much of both lungs. No pleural effusions. The heart is upper limits normal in size. No pericardial effusion. There are dense coronary artery calcifications. There are prominent but not frankly enlarged mediastinal lymph nodes, particularly in the paratracheal region. The included thyroid is unremarkable. There is a right arm PICC in place. No axillary or chest wall mass or adenopathy. The included upper abdominal anatomy is unremarkable Impression: Positive for pulmonary embolus in the right middle lobe pulmonary artery and superior segmental branch of the right lower lobe pulmonary artery Bilateral areas of consolidation and/or atelectasis, as described Nonspecific prominent but not frankly enlarged mediastinal lymph nodes Right arm PICC Critical value findings phoned to Dr. Cassidy at the time of interpretation The CT scanner at [facility] is accredited by the [employer] and the scans are performed using protocols designed to limit radiation exposure to as low as reasonably achievable to attain images of sufficient resolution adequate for diagnostic evaluation.
--- NOTE | 2019-08-14 15:34 | Diagnostic Imaging Report ---
Indication: Shortness of breath Technique: One view of the chest Comparison: none Findings: Interim removal of endotracheal and nasogastric tubes. There is some atelectasis at the left lung base. The remaining lungs and pleural spaces are clear. The heart size is enlarged. No significant demonstrate left pleural effusion is no longer evident. Impression: Interim endotracheal and nasogastric extubation Improved left basilar pleural fluid and parenchymal opacity. Minimal residual atelectasis. Stable cardiomegaly
[2019-08-14 16:00] VITALS: BP 145/72
[2019-08-14 20:00] VITALS: BP 133/85
--- NOTE | 2019-08-14 20:27 | General Progress Note ---
Assessment/Plan Problem List: (1) Respiratory failure ICD Codes: J96.90 - Respiratory failure, unspecified, unspecified whether with hypoxia or hypercapnia SNOMED: 771309079 (2) CHF exacerbation ICD Codes: I50.9 - Heart failure, unspecified SNOMED: 458848652, 03698905385016 (3) COPD exacerbation ICD Codes: J44.1 - Chronic obstructive pulmonary disease with (acute) exacerbation SNOMED: 895174179 (4) Acute respiratory failure ICD Codes: J96.00 - Acute respiratory failure, unspecified whether with hypoxia or hypercapnia SNOMED: 63741420 (5) ATN (acute tubular necrosis) ICD Codes: N17.0 - Acute kidney failure with tubular necrosis SNOMED: 02400927 (6) Nephrotic syndrome ICD Codes: N04.9 - Nephrotic syndrome with unspecified morphologic changes SNOMED: 07270983 Status: progressing, unchanged Assessment/Plan: chf not hypoxic afebrile no wheezing resp insuff reviewed chart Subjective ROS Limited/Unobtainable: Yes Allergies: Coded Allergies: No Known Allergies (Unverified , 07/23/16) Objective Last 24 Hour Vital Signs Date Time Temp Pulse Resp B/P (MAP) Pulse Ox O2 Delivery O2 Flow Rate FiO2 08/14/19 16:00 55.0 100 08/14/19 16:00 79 08/14/19 16:00 97.0 83 20 145/72 (96) 96 08/14/19 12:00 83 08/14/19 12:00 97.3 84 20 136/85 (102) 98 08/14/19 12:00 55.0 100 08/14/19 09:30 96 High Flow 55.0 100 08/14/19 09:00 Nasal Cannula 40.0 08/14/19 08:00 97.8 76 20 135/67 (89) 93 08/14/19 08:00 84 08/14/19 08:00 55.0 100 08/14/19 04:00 97.7 79 20 144/88 (106) 98 08/14/19 04:00 81 08/14/19 04:00 55.0 100 08/14/19 02:55 95 High Flow 55.0 100 08/14/19 00:00 97.5 76 20 125/73 (90) 99 08/14/19 00:00 71 08/14/19 00:00 55.0 100 08/13/19 22:31 94 High Flow 55.0 100 Intake and Output 08/13/19 08/14/19 19:00 07:00 Intake Total 240 ml Output Total 1320 ml 670 ml Balance -1080 ml -670 ml Intake Oral 240 ml Output Urine Total 1320 ml 670 ml # Bowel Movements 4 Height (Feet): 6 Height (Inches): 1.00 Weight (Pounds): 212 Santi Ortez MD Aug 14, 2019 20:27
[2019-08-14] MEDS: Dyna-Hex 2% Top Sol 2oz TOPIC SCH (21:37)
[2019-08-15] VITALS: BP 127/82
[2019-08-15 04:00] VITALS: BP 131/76
[2019-08-15 08:08] VITALS: BP 131/85
[2019-08-15] MEDS: Solu-MEDROL 40mg Inj IVP SCH (08:59)
[2019-08-15] MEDS: Docusate 100mg cap ORAL SCH ×3 (08:59→18:09)
[2019-08-15] MEDS: Enoxaparin 100mg Inj SUBQ SCH (09:00)
--- NOTE | 2019-08-15 10:30 | Nephrology Progress Note ---
Assessment/Plan Problem List: (1) CAITLIN (acute kidney injury) (2) Hypokalemia (3) Acute respiratory failure (4) CHF (congestive heart failure) (5) COPD exacerbation Assessment Acute respiratory failure requiring intubation and mechanical ventilation , currently on FiO2 of 70% CHF (congestive heart failure), exacerbation COPD exacerbation Lymphopenia Plan Today's labs are reviewed Off Diamox and potassium supplement serum creatinine down to 1.3 Stable from renal standpoint to view Vent management per pulmonary NG tube Change feeding to Nepro Continue to monitor renal parameters IV Protonix Antibiotics Steroids is being continued 2D echocardiogram ejection fraction 55% Monitor urine output and renal parameters Monitor immunoresponse parameters Per orders Subjective ROS Limited/Unobtainable: No Constitutional: Reports: malaise Objective Objective Last 24 Hour Vital Signs Date Time Temp Pulse Resp B/P (MAP) Pulse Ox O2 Delivery O2 Flow Rate FiO2 08/15/19 09:15 Nasal Cannula 55.0 08/15/19 08:08 98.7 77 22 131/85 (100) 77 08/15/19 08:00 55.0 100 08/15/19 07:00 94 High Flow 55.0 100 08/15/19 04:00 Nasal Cannula 55.0 08/15/19 04:00 55.0 100 08/15/19 04:00 75 08/15/19 04:00 98.6 77 18 131/76 (94) 94 08/15/19 02:21 96 High Flow 55.0 100 08/15/19 00:00 98.2 75 18 127/82 (97) 95 08/15/19 00:00 Nasal Cannula 55.0 08/15/19 00:00 77 08/14/19 23:21 94 High Flow 55.0 100 08/14/19 21:00 Nasal Cannula 55.0 08/14/19 21:00 84 08/14/19 20:00 55.0 100 08/14/19 20:00 98.9 73 18 133/85 (101) 93 08/14/19 19:47 96 High Flow 55.0 100 08/14/19 16:00 55.0 100 08/14/19 16:00 79 08/14/19 16:00 97.0 83 20 145/72 (96) 96 08/14/19 12:00 83 08/14/19 12:00 97.3 84 20 136/85 (102) 98 08/14/19 12:00 55.0 100 Intake and Output 08/14/19 08/15/19 19:00 07:00 Intake Total 236 ml 720 ml Output Total 400 ml 700 ml Balance -164 ml 20 ml Intake Oral 236 ml 720 ml Output Urine Total 400 ml 700 ml # Voids 1 No labs drawn today Height (Feet): 6 Height (Inches): 1.00 Weight (Pounds): 246 General Appearance: no apparent distress EENT: other - On high flow oxygen Cardiovascular: normal rate Respiratory/Chest: decreased breath sounds Abdomen: distended Ovi Byrnes MD Aug 15, 2019 10:30
--- NOTE | 2019-08-15 10:37 | Pulmonology Progress Note ---
Assessment/Plan Assessment/Plan IMPRESSION: 1. Decompensated congestive heart failure. 2. COPD with exacerbation 3. Respiratory failure. Now extubated. 4. Obesity. 5. Acute on chronic respiratory acidosis. 6. Pulmonary embolism DISCUSSION: Off lasix; dc Diamox On steroids Continue broad-spectrum antibiotics. Continue high flow O2 Continue anticoagulation Will begin Xarelto; CT chest confirms PE Mitchell Cassidy M.D. Subjective Interval Events: None new Constitutional: Reports: no symptoms HEENT: Repors: no symptoms Respiratory: Reports: no symptoms Cardiovascular: Reports: no symptoms Allergies: Coded Allergies: No Known Allergies (Unverified , 07/23/16) Objective Last 24 Hour Vital Signs Date Time Temp Pulse Resp B/P (MAP) Pulse Ox O2 Delivery O2 Flow Rate FiO2 08/15/19 09:15 Nasal Cannula 55.0 08/15/19 08:08 98.7 77 22 131/85 (100) 77 08/15/19 08:00 55.0 100 08/15/19 07:00 94 High Flow 55.0 100 08/15/19 04:00 Nasal Cannula 55.0 08/15/19 04:00 55.0 100 08/15/19 04:00 75 08/15/19 04:00 98.6 77 18 131/76 (94) 94 08/15/19 02:21 96 High Flow 55.0 100 08/15/19 00:00 98.2 75 18 127/82 (97) 95 08/15/19 00:00 Nasal Cannula 55.0 08/15/19 00:00 77 08/14/19 23:21 94 High Flow 55.0 100 08/14/19 21:00 Nasal Cannula 55.0 08/14/19 21:00 84 08/14/19 20:00 55.0 100 08/14/19 20:00 98.9 73 18 133/85 (101) 93 08/14/19 19:47 96 High Flow 55.0 100 08/14/19 16:00 55.0 100 08/14/19 16:00 79 08/14/19 16:00 97.0 83 20 145/72 (96) 96 08/14/19 12:00 83 08/14/19 12:00 97.3 84 20 136/85 (102) 98 08/14/19 12:00 55.0 100 Intake and Output 08/14/19 08/15/19 19:00 07:00 Intake Total 236 ml 720 ml Output Total 400 ml 700 ml Balance -164 ml 20 ml Intake Oral 236 ml 720 ml Output Urine Total 400 ml 700 ml # Voids 1 General Appearance: no acute distress HEENT: normocephalic Respiratory/Chest: chest wall non-tender, lungs clear Cardiovascular: normal peripheral pulses, normal rate Abdomen: normal bowel sounds Current Medications Medications (Trade) Dose Ordered Sig/Judy Route PRN Reason Start Time Stop Time Status Last Admin Dose Admin Artificial Tears (Akwa-Tears) 2 drop Q4H PRN BOTH EYES Dry Eyes 08/13/19 18:23 09/12/19 18:22 Chlorhexidine Gluconate (Jessenia-Hex 2%) 1 applic DAILY@2000 TOPIC 08/13/19 20:00 11/04/19 19:59 08/14/19 21:37 Clonidine HCl (Catapres Tab) 0.1 mg Q4H PRN ORAL SBP>170 08/13/19 18:30 11/11/19 18:22 Dextrose (Dextrose 50%) 25 ml Q30M PRN IV Hypoglycemia 08/13/19 18:30 11/04/19 10:29 Dextrose (Dextrose 50%) 50 ml Q30M PRN IV Hypoglycemia 08/13/19 18:30 11/04/19 10:29 Docusate Sodium (Colace) 100 mg THREE TIMES A DAY ORAL 08/14/19 09:00 09/12/19 08:59 08/15/19 08:59 Enoxaparin Sodium (Lovenox) 100 mg EVERY 12 HOURS SUBQ 08/13/19 21:00 11/09/19 20:59 08/15/19 09:00 Hydralazine HCl (Apresoline) 10 mg Q2H PRN IV SBP>170 08/13/19 18:23 11/11/19 18:22 Methylprednisolone Sodium Succinate (Solu-MEDROL) 40 mg DAILY IVP 08/14/19 09:00 11/06/19 11:19 08/15/19 08:59 Pantoprazole (Protonix) 40 mg EVERY 12 HOURS ORAL 08/13/19 21:00 09/12/19 20:59 08/15/19 08:59 Mitchell Cassidy MD Aug 15, 2019 10:37
--- NOTE | 2019-08-15 11:20 | Cardiac Electrophysiology PN ---
Assessment/Plan Assessment/Plan 1. Respiratory failure due to combination of CHF,COPD, PNA and possible PE. His BNP is more than 5000. EF 55% with nl PAP. Extubated Ruled out for ME. On Lovenox 100 bid for possible PE. 2. PNA. Covid is negative, on Solumedrol off abx. 3. ARF. Cr down to 1.3 4. COPD. DW RN Subjective Subjective Transferred out of ICU on high flow Oxygen. Covid test negativex2. No arrhythmias overnight. In SR ECHO Nl EF Objective Last 24 Hour Vital Signs Date Time Temp Pulse Resp B/P (MAP) Pulse Ox O2 Delivery O2 Flow Rate FiO2 08/15/19 09:15 Nasal Cannula 55.0 08/15/19 08:08 98.7 77 22 131/85 (100) 77 08/15/19 08:00 55.0 100 08/15/19 07:00 94 High Flow 55.0 100 08/15/19 04:00 Nasal Cannula 55.0 08/15/19 04:00 55.0 100 08/15/19 04:00 75 08/15/19 04:00 98.6 77 18 131/76 (94) 94 08/15/19 02:21 96 High Flow 55.0 100 08/15/19 00:00 98.2 75 18 127/82 (97) 95 08/15/19 00:00 Nasal Cannula 55.0 08/15/19 00:00 77 08/14/19 23:21 94 High Flow 55.0 100 08/14/19 21:00 Nasal Cannula 55.0 08/14/19 21:00 84 08/14/19 20:00 55.0 100 08/14/19 20:00 98.9 73 18 133/85 (101) 93 08/14/19 19:47 96 High Flow 55.0 100 08/14/19 16:00 55.0 100 08/14/19 16:00 79 08/14/19 16:00 97.0 83 20 145/72 (96) 96 08/14/19 12:00 83 08/14/19 12:00 97.3 84 20 136/85 (102) 98 08/14/19 12:00 55.0 100 Intake and Output 08/14/19 08/15/19 19:00 07:00 Intake Total 236 ml 720 ml Output Total 400 ml 700 ml Balance -164 ml 20 ml Intake Oral 236 ml 720 ml Output Urine Total 400 ml 700 ml # Voids 1 Objective HEAD AND NECK: No JVD. High flow oxygen in place LUNGS: Coarse rhonchi bilaterally. CARDIOVASCULAR: Regular S1 and S2 with no gallop or murmur. ABDOMEN: Soft. EXTREMITIES: 1+ pitting edema. Livan Parker MD Aug 15, 2019 11:20
--- NOTE | 2019-08-15 11:43 | Infectious Diseases Prog Note ---
Assessment/Plan Assessment/Plan IMPRESSION: COPD exacerbation, Hypercapnic respiratory failure CHF exacerbation, Diastolic Hypertension, Pulmonary hypertension, Chronic kidney disease, sleep apnea. Leukocytosis, likely steroid related RECOMMENDATION: Observe off antibiotic Negative COVID19 tests X 2 sputum culture: normal fly Subjective ROS Limited/Unobtainable: No Constitutional: Reports: no symptoms, other - feels better Respiratory: Reports: other - blood in sputum Gastrointestinal/Abdominal: Reports: no symptoms Genitourinary: Reports: no symptoms Allergies: Coded Allergies: No Known Allergies (Unverified , 07/23/16) Objective Vital Signs Last 24 Hour Vital Signs Date Time Temp Pulse Resp B/P (MAP) Pulse Ox O2 Delivery O2 Flow Rate FiO2 08/15/19 11:19 95 High Flow 55.0 100 08/15/19 09:15 Nasal Cannula 55.0 08/15/19 08:08 98.7 77 22 131/85 (100) 77 08/15/19 08:00 55.0 100 08/15/19 07:00 94 High Flow 55.0 100 08/15/19 04:00 Nasal Cannula 55.0 08/15/19 04:00 55.0 100 08/15/19 04:00 75 08/15/19 04:00 98.6 77 18 131/76 (94) 94 08/15/19 02:21 96 High Flow 55.0 100 08/15/19 00:00 98.2 75 18 127/82 (97) 95 08/15/19 00:00 Nasal Cannula 55.0 08/15/19 00:00 77 08/14/19 23:21 94 High Flow 55.0 100 08/14/19 21:00 Nasal Cannula 55.0 08/14/19 21:00 84 08/14/19 20:00 55.0 100 08/14/19 20:00 98.9 73 18 133/85 (101) 93 08/14/19 19:47 96 High Flow 55.0 100 08/14/19 16:00 55.0 100 08/14/19 16:00 79 08/14/19 16:00 97.0 83 20 145/72 (96) 96 08/14/19 12:00 83 08/14/19 12:00 97.3 84 20 136/85 (102) 98 08/14/19 12:00 55.0 100 Height (Feet): 6 Height (Inches): 1.00 Weight (Pounds): 246 General Appearance: no acute distress HEENT: mucous membranes moist Respiratory/Chest: lungs clear Cardiovascular: normal rate Abdomen: soft, non tender Extremities: no edema Neurologic/Psychiatric: alert, oriented x 3, responsive Current Medications Medications (Trade) Dose Ordered Sig/Judy Route PRN Reason Start Time Stop Time Status Last Admin Dose Admin Artificial Tears (Akwa-Tears) 2 drop Q4H PRN BOTH EYES Dry Eyes 08/13/19 18:23 09/12/19 18:22 Chlorhexidine Gluconate (Jessenia-Hex 2%) 1 applic DAILY@1999 TOPIC 08/13/19 20:00 11/04/19 19:59 08/14/19 21:37 Clonidine HCl (Catapres Tab) 0.1 mg Q4H PRN ORAL SBP>170 08/13/19 18:30 11/11/19 18:22 Dextrose (Dextrose 50%) 25 ml Q30M PRN IV Hypoglycemia 08/13/19 18:30 11/04/19 10:29 Dextrose (Dextrose 50%) 50 ml Q30M PRN IV Hypoglycemia 08/13/19 18:30 11/04/19 10:29 Docusate Sodium (Colace) 100 mg THREE TIMES A DAY ORAL 08/14/19 09:00 09/12/19 08:59 08/15/19 08:59 Enoxaparin Sodium (Lovenox) 100 mg EVERY 12 HOURS SUBQ 08/13/19 21:00 11/09/19 20:59 08/15/19 09:00 Hydralazine HCl (Apresoline) 10 mg Q2H PRN IV SBP>170 08/13/19 18:23 11/11/19 18:22 Methylprednisolone Sodium Succinate (Solu-MEDROL) 40 mg DAILY IVP 08/14/19 09:00 11/06/19 11:19 08/15/19 08:59 Pantoprazole (Protonix) 40 mg EVERY 12 HOURS ORAL 08/13/19 21:00 09/12/19 20:59 08/15/19 08:59 Jesús Rose MD Aug 15, 2019 11:43
[2019-08-15 12:00] VITALS: BP 121/77
[2019-08-15 13:08] LABS: ALANINE AMINOTRANSFERASE 23 U/L (12-78); ALBUMIN 2.8 G/DL (3.4-5.0); ALBUMIN/GLOBULIN RATIO 0.8 (1.0-2.7); ALKALINE PHOSPHATASE 62 U/L (46-116); ANION GAP 2 mmol/L (5-15); ASPARTATE AMINO TRANSFERASE 24 U/L (15-37); BILIRUBIN,TOTAL 0.5 MG/DL (0.2-1.0); BLOOD UREA NITROGEN 27 mg/dL (7-18); CALCIUM 8.7 MG/DL (8.5-10.1); CARBON DIOXIDE 36 MMOL/L (21-32); CHLORIDE 103 MMOL/L (98-107); POTASSIUM 4.2 MMOL/L (3.5-5.1); SODIUM 140 MMOL/L (136-145)
--- NOTE | 2019-08-15 13:29 | Hematology/Onc Progress Note ---
Assessment/Plan Assessment/Plan # Pulmonary embolism cta: Positive for pulmonary embolus in the right middle lobe pulmonary artery and superior segmental branch of the right lower lobe pulmonary artery --> Has been started on lovenox bid dosing --> can consider once discharged xarelto --> agree with cardiology/pulm recs # Elevated d-dimer -- multiple etiologies, but may be due to CHF,COPD, PNA and possible PE. --> His BNP is more than 5000. EF 55% with nl PAP. Extubated also --> remains on On Lovenox 100 bid for possible PE --> duplex lower legs negative # Leukocytosis may be due to PNA. Covid is negative, on Solumedrol off abx. ==> Repeat CXR as needed --> off steriods per pulm --> covid negative # ARF. Cr down to 1.3 --> as per Dr. Byrnes # COPD without exacerbation # Dvt ppx lovenox Appreciate consultation and fannie rn Subjective Allergies: Coded Allergies: No Known Allergies (Unverified , 07/23/16) Subjective 08/13 labs have been reviewed, no bleeding, duplex ordered 08/14 ct confirms pe, off steroids and abx, casey duplex le negative, no sob Objective Objective Current Medications Medications (Trade) Dose Ordered Sig/Judy Route PRN Reason Start Time Stop Time Status Last Admin Dose Admin Artificial Tears (Akwa-Tears) 2 drop Q4H PRN BOTH EYES Dry Eyes 08/13/19 18:23 09/12/19 18:22 Chlorhexidine Gluconate (Jessenia-Hex 2%) 1 applic DAILY@2000 TOPIC 08/13/19 20:00 11/04/19 19:59 08/14/19 21:37 Clonidine HCl (Catapres Tab) 0.1 mg Q4H PRN ORAL SBP>170 08/13/19 18:30 11/11/19 18:22 Dextrose (Dextrose 50%) 25 ml Q30M PRN IV Hypoglycemia 08/13/19 18:30 11/04/19 10:29 Dextrose (Dextrose 50%) 50 ml Q30M PRN IV Hypoglycemia 08/13/19 18:30 11/04/19 10:29 Docusate Sodium (Colace) 100 mg THREE TIMES A DAY ORAL 08/14/19 09:00 09/12/19 08:59 08/15/19 08:59 Enoxaparin Sodium (Lovenox) 100 mg EVERY 12 HOURS SUBQ 08/13/19 21:00 11/09/19 20:59 08/15/19 09:00 Hydralazine HCl (Apresoline) 10 mg Q2H PRN IV SBP>170 08/13/19 18:23 11/11/19 18:22 Methylprednisolone Sodium Succinate (Solu-MEDROL) 40 mg DAILY IVP 08/14/19 09:00 11/06/19 11:19 08/15/19 08:59 Pantoprazole (Protonix) 40 mg EVERY 12 HOURS ORAL 08/13/19 21:00 09/12/19 20:59 08/15/19 08:59 Last 24 Hour Vital Signs Date Time Temp Pulse Resp B/P (MAP) Pulse Ox O2 Delivery O2 Flow Rate FiO2 08/15/19 12:00 55.0 100 08/15/19 12:00 99.9 78 20 121/77 (92) 99 08/15/19 11:40 91 High Flow 55.0 80 08/15/19 11:19 95 High Flow 55.0 100 08/15/19 09:15 Nasal Cannula 55.0 08/15/19 08:08 98.7 77 22 131/85 (100) 77 08/15/19 08:00 75 08/15/19 08:00 55.0 100 08/15/19 07:00 94 High Flow 55.0 100 08/15/19 04:00 Nasal Cannula 55.0 08/15/19 04:00 55.0 100 08/15/19 04:00 75 08/15/19 04:00 98.6 77 18 131/76 (94) 94 08/15/19 02:21 96 High Flow 55.0 100 08/15/19 00:00 98.2 75 18 127/82 (97) 95 08/15/19 00:00 Nasal Cannula 55.0 08/15/19 00:00 77 08/14/19 23:21 94 High Flow 55.0 100 08/14/19 21:00 Nasal Cannula 55.0 08/14/19 21:00 84 08/14/19 20:00 55.0 100 08/14/19 20:00 98.9 73 18 133/85 (101) 93 08/14/19 19:47 96 High Flow 55.0 100 08/14/19 16:00 55.0 100 08/14/19 16:00 79 08/14/19 16:00 97.0 83 20 145/72 (96) 96 08/14/19 12:00 83 08/14/19 12:00 97.3 84 20 136/85 (102) 98 08/14/19 12:00 55.0 100 08/14/19 09:30 96 High Flow 55.0 100 08/14/19 09:00 Nasal Cannula 40.0 08/14/19 08:00 97.8 76 20 135/67 (89) 93 08/14/19 08:00 84 08/14/19 08:00 55.0 100 08/14/19 04:00 97.7 79 20 144/88 (106) 98 08/14/19 04:00 81 08/14/19 04:00 55.0 100 08/14/19 02:55 95 High Flow 55.0 100 08/14/19 00:00 97.5 76 20 125/73 (90) 99 08/14/19 00:00 71 08/14/19 00:00 55.0 100 08/13/19 22:31 94 High Flow 55.0 100 08/13/19 20:00 55.0 100 08/13/19 20:00 97.7 82 20 139/78 (98) 94 08/13/19 20:00 82 08/13/19 19:58 95 High Flow 55.0 100 08/13/19 18:00 84 15 127/82 (97) 96 08/13/19 17:00 81 13 125/61 (82) 93 08/13/19 16:00 Nasal Cannula 55.0 Nasal Cannula 55.0 08/13/19 16:00 84 08/13/19 16:00 55.0 100 08/13/19 16:00 98.6 95 22 141/88 (105) 90 08/13/19 15:01 93 High Flow 55.0 100 08/13/19 15:00 84 27 125/83 (97) 94 08/13/19 14:00 90 21 133/81 (98) 98 Intake and Output 08/14/19 08/15/19 19:00 07:00 Intake Total 236 ml 720 ml Output Total 400 ml 700 ml Balance -164 ml 20 ml Intake Oral 236 ml 720 ml Output Urine Total 400 ml 700 ml # Voids 1 Labs Test 08/12/19 13:20 08/13/19 05:10 08/13/19 15:56 08/15/19 12:30 Arterial Blood pH 7.345 (7.350-7.450) 7.339 (7.350-7.450) Arterial Blood Partial Pressure CO2 62.9 mmHg (35.0-45.0) 61.8 mmHg (35.0-45.0) Arterial Blood Partial Pressure O2 61.1 mmHg (75.0-100.0) 69.9 mmHg (75.0-100.0) Arterial Blood HCO3 33.6 mmol/L (22.0-26.0) 32.5 mmol/L (22.0-26.0) Arterial Blood Oxygen Saturation 90.2 % (95-100) 93.0 % (95-100) Arterial Blood Base Excess 5.4 (-2-2) 4.6 (-2-2) [place] Test Positive Positive White Blood Count 13.2 K/UL (4.8-10.8) Red Blood Count 6.02 M/UL (4.70-6.10) Hemoglobin 16.0 G/DL (14.2-18.0) Hematocrit 50.5 % (42.0-52.0) Mean Corpuscular Volume 84 FL (80-99) Mean Corpuscular Hemoglobin 26.5 PG (27.0-31.0) Mean Corpuscular Hemoglobin Concent 31.6 G/DL (32.0-36.0) Red Cell Distribution Width 13.8 % (11.6-14.8) Platelet Count 199 K/UL (150-450) Mean Platelet Volume 7.0 FL (6.5-10.1) Neutrophils (%) (Auto) 81.3 % (45.0-75.0) Lymphocytes (%) (Auto) 7.1 % (20.0-45.0) Monocytes (%) (Auto) 8.9 % (1.0-10.0) Eosinophils (%) (Auto) 2.3 % (0.0-3.0) Basophils (%) (Auto) 0.4 % (0.0-2.0) Sodium Level 146 MMOL/L (136-145) 140 MMOL/L (136-145) Potassium Level 3.8 MMOL/L (3.5-5.1) 4.2 MMOL/L (3.5-5.1) Chloride Level 105 MMOL/L (98-107) 103 MMOL/L (98-107) Carbon Dioxide Level 32 MMOL/L (21-32) 36 MMOL/L (21-32) Anion Gap 9 mmol/L (5-15) 2 mmol/L (5-15) Blood Urea Nitrogen 38 mg/dL (7-18) 27 mg/dL (7-18) Creatinine 1.3 MG/DL (0.55-1.30) 1.0 MG/DL (0.55-1.30) Estimat Glomerular Filtration Rate > 60 mL/min (>60) > 60 mL/min (>60) Glucose Level 121 MG/DL (74-106) 136 MG/DL (74-106) Uric Acid 4.5 MG/DL (2.6-7.2) Calcium Level 9.0 MG/DL (8.5-10.1) 8.7 MG/DL (8.5-10.1) Phosphorus Level 3.7 MG/DL (2.5-4.9) Magnesium Level 2.1 MG/DL (1.8-2.4) Total Bilirubin 0.6 MG/DL (0.2-1.0) 0.5 MG/DL (0.2-1.0) Aspartate Amino Transf (AST/SGOT) 24 U/L (15-37) 24 U/L (15-37) Alanine Aminotransferase (ALT/SGPT) 25 U/L (12-78) 23 U/L (12-78) Alkaline Phosphatase 70 U/L (46-116) 62 U/L (46-116) C-Reactive Protein, Quantitative 3.0 mg/dL (0.00-0.90) Pro-B-Type Natriuretic Peptide 472 pg/mL (0-125) Total Protein 7.4 G/DL (6.4-8.2) 6.5 G/DL (6.4-8.2) Albumin 3.0 G/DL (3.4-5.0) 2.8 G/DL (3.4-5.0) Globulin 4.4 g/dL 3.7 g/dL Albumin/Globulin Ratio 0.7 (1.0-2.7) 0.8 (1.0-2.7) Height (Feet): 6 Height (Inches): 1.00 Weight (Pounds): 246 Objective Physical Exam: Vitals: reviewed General: NAD HEENT: nc, at Neck: supple Chest: clear breath sounds bilaterally Cardiovascular: RRR, no s3, s4 Neuro: alert and oriented : carlos manuel+ uJanito Castellanos MD Aug 15, 2019 13:29
[2019-08-15 16:00] VITALS: BP 141/73
[2019-08-15 20:00] VITALS: BP 149/94
[2019-08-15] MEDS: Dyna-Hex 2% Top Sol 2oz TOPIC SCH (20:49)
--- NOTE | 2019-08-15 21:29 | General Progress Note ---
Assessment/Plan Problem List: (1) Respiratory failure ICD Codes: J96.90 - Respiratory failure, unspecified, unspecified whether with hypoxia or hypercapnia SNOMED: 284462373 (2) CHF exacerbation ICD Codes: I50.9 - Heart failure, unspecified SNOMED: 172111597, 13134746854507 (3) COPD exacerbation ICD Codes: J44.1 - Chronic obstructive pulmonary disease with (acute) exacerbation SNOMED: 462008732 (4) Acute respiratory failure ICD Codes: J96.00 - Acute respiratory failure, unspecified whether with hypoxia or hypercapnia SNOMED: 22848853 (5) ATN (acute tubular necrosis) ICD Codes: N17.0 - Acute kidney failure with tubular necrosis SNOMED: 77010816 (6) Nephrotic syndrome ICD Codes: N04.9 - Nephrotic syndrome with unspecified morphologic changes SNOMED: 58796104 Status: progressing, unchanged Assessment/Plan: high flow oxygen pulmonary emboluism consulted dr baron del castillo for bleeding unstable for dc Subjective ROS Limited/Unobtainable: Yes Allergies: Coded Allergies: No Known Allergies (Unverified , 07/23/16) Objective Last 24 Hour Vital Signs Date Time Temp Pulse Resp B/P (MAP) Pulse Ox O2 Delivery O2 Flow Rate FiO2 08/15/19 20:00 55.0 70 08/15/19 19:15 96 High Flow 55.0 70 08/15/19 16:00 55.0 100 08/15/19 16:00 83 08/15/19 16:00 97.9 83 18 141/73 (95) 95 08/15/19 15:15 98 High Flow 55.0 70 08/15/19 12:00 55.0 100 08/15/19 12:00 99.9 78 20 121/77 (92) 99 08/15/19 12:00 79 08/15/19 11:40 91 High Flow 55.0 80 08/15/19 11:19 95 High Flow 55.0 100 08/15/19 09:15 Nasal Cannula 55.0 08/15/19 08:08 98.7 77 22 131/85 (100) 77 08/15/19 08:00 75 08/15/19 08:00 55.0 100 08/15/19 07:00 94 High Flow 55.0 100 08/15/19 04:00 Nasal Cannula 55.0 08/15/19 04:00 55.0 100 08/15/19 04:00 75 08/15/19 04:00 98.6 77 18 131/76 (94) 94 08/15/19 02:21 96 High Flow 55.0 100 08/15/19 00:00 98.2 75 18 127/82 (97) 95 08/15/19 00:00 Nasal Cannula 55.0 08/15/19 00:00 77 08/14/19 23:21 94 High Flow 55.0 100 Intake and Output 08/14/19 08/15/19 18:59 06:59 Intake Total 236 ml 720 ml Output Total 400 ml 700 ml Balance -164 ml 20 ml Intake Oral 236 ml 720 ml Output Urine Total 400 ml 700 ml # Voids 1 Laboratory Tests 08/15/19 12:30: Sodium Level 140, Potassium Level 4.2, Chloride Level 103, Carbon Dioxide Level 36H, Anion Gap 2L, Blood Urea Nitrogen 27H, Creatinine 1.0, Estimat Glomerular Filtration Rate > 60, Glucose Level 136H, Calcium Level 8.7, Total Bilirubin 0.5 , Aspartate Amino Transf (AST/SGOT) 24, Alanine Aminotransferase (ALT/SGPT) 23, Alkaline Phosphatase 62, Total Protein 6.5, Albumin 2.8L, Globulin 3.7, Albumin/ Globulin Ratio 0.8L Height (Feet): 6 Height (Inches): 1.00 Weight (Pounds): 246 Santi Ortez MD Aug 15, 2019 21:29
[2019-08-16] VITALS: BP 139/79
[2019-08-16 04:00] VITALS: BP 136/76
[2019-08-16 05:29] LABS: BASOPHILS % (AUTO) 0.4 % (0.0-2.0); EOSINOPHILS % (AUTO) 3.6 % (0.0-3.0); HEMATOCRIT 42.7 % (42.0-52.0); HEMOGLOBIN 13.6 G/DL (14.2-18.0); LYMPHOCYTES % (AUTO) 10.5 % (20.0-45.0); MEAN CORPUSCULAR VOLUME 84 FL (80-99); NEUTROPHILS % (AUTO) 76.5 % (45.0-75.0); PLATELET COUNT 190 K/UL (150-450); RED CELL DISTRIBUTION WIDTH 13.2 % (11.6-14.8); WHITE BLOOD COUNT 7.4 K/UL (4.8-10.8)
[2019-08-16 05:57] LABS: ALANINE AMINOTRANSFERASE 26 U/L (12-78); ALBUMIN 2.6 G/DL (3.4-5.0); ALBUMIN/GLOBULIN RATIO 0.8 (1.0-2.7); ALKALINE PHOSPHATASE 53 U/L (46-116); ANION GAP 0 mmol/L (5-15); ASPARTATE AMINO TRANSFERASE 23 U/L (15-37); BILIRUBIN,TOTAL 0.6 MG/DL (0.2-1.0); BLOOD UREA NITROGEN 20 mg/dL (7-18); CALCIUM 8.4 MG/DL (8.5-10.1); CARBON DIOXIDE 38 MMOL/L (21-32); CHLORIDE 102 MMOL/L (98-107); CREATININE 0.9 MG/DL (0.55-1.30); PHOSPHORUS 2.7 MG/DL (2.5-4.9); POTASSIUM 3.7 MMOL/L (3.5-5.1); SODIUM 140 MMOL/L (136-145)
[2019-08-16 07:54] VITALS: BP 129/85
[2019-08-16] MEDS: Docusate 100mg cap ORAL SCH ×3 (08:13→17:07)
[2019-08-16] MEDS: Xarelto 10mg tab ORAL SCH (08:13)
[2019-08-16] MEDS: Solu-MEDROL 40mg Inj IVP SCH (10:02)
--- NOTE | 2019-08-16 10:33 | General Progress Note ---
Assessment/Plan Problem List: (1) Respiratory failure ICD Codes: J96.90 - Respiratory failure, unspecified, unspecified whether with hypoxia or hypercapnia SNOMED: 036459849 (2) CHF exacerbation ICD Codes: I50.9 - Heart failure, unspecified SNOMED: 366934524, 12022962699215 (3) COPD exacerbation ICD Codes: J44.1 - Chronic obstructive pulmonary disease with (acute) exacerbation SNOMED: 430926336 (4) Acute respiratory failure ICD Codes: J96.00 - Acute respiratory failure, unspecified whether with hypoxia or hypercapnia SNOMED: 06552756 (5) ATN (acute tubular necrosis) ICD Codes: N17.0 - Acute kidney failure with tubular necrosis SNOMED: 05033859 (6) Nephrotic syndrome ICD Codes: N04.9 - Nephrotic syndrome with unspecified morphologic changes SNOMED: 00040980 Status: progressing, unchanged Assessment/Plan: high flow oxygen pulmonary embolus chf copd resp insuff afebrile pna resp Subjective ROS Limited/Unobtainable: Yes Allergies: Coded Allergies: No Known Allergies (Unverified , 07/23/16) Objective Last 24 Hour Vital Signs Date Time Temp Pulse Resp B/P (MAP) Pulse Ox O2 Delivery O2 Flow Rate FiO2 08/16/19 07:54 98.4 73 20 129/85 (100) 95 08/16/19 06:40 96 High Flow 55.0 70 08/16/19 04:00 98.5 70 18 136/76 (96) 93 08/16/19 04:00 71 08/16/19 04:00 Nasal Cannula 55.0 08/16/19 04:00 55.0 70 08/16/19 00:00 72 08/16/19 00:00 Nasal Cannula 55.0 08/16/19 00:00 99.2 74 20 139/79 (99) 93 08/16/19 00:00 55.0 70 08/15/19 23:05 97 High Flow 55.0 70 08/15/19 21:00 Nasal Cannula 55.0 08/15/19 20:00 55.0 70 08/15/19 20:00 73 08/15/19 20:00 99.7 72 20 149/94 (112) 97 08/15/19 19:15 96 High Flow 55.0 70 4/17/20 16:00 55.0 100 08/15/19 16:00 83 08/15/19 16:00 97.9 83 18 141/73 (95) 95 08/15/19 15:15 98 High Flow 55.0 70 08/15/19 12:00 55.0 100 08/15/19 12:00 99.9 78 20 121/77 (92) 99 08/15/19 12:00 79 08/15/19 11:40 91 High Flow 55.0 80 08/15/19 11:19 95 High Flow 55.0 100 Intake and Output 08/15/19 08/16/19 19:00 07:00 Intake Total 600 ml Balance 600 ml Intake Oral 600 ml # Voids 2 Laboratory Tests 08/15/19 12:30: Sodium Level 140, Potassium Level 4.2, Chloride Level 103, Carbon Dioxide Level 36H, Anion Gap 2L, Blood Urea Nitrogen 27H, Creatinine 1.0, Estimat Glomerular Filtration Rate > 60, Glucose Level 136H, Calcium Level 8.7, Total Bilirubin 0.5 , Aspartate Amino Transf (AST/SGOT) 24, Alanine Aminotransferase (ALT/SGPT) 23, Alkaline Phosphatase 62, Total Protein 6.5, Albumin 2.8L, Globulin 3.7, Albumin/ Globulin Ratio 0.8L 08/16/19 04:30: Sodium Level 140, Potassium Level 3.7, Chloride Level 102, Carbon Dioxide Level 38H, Anion Gap 0L, Blood Urea Nitrogen 20H, Creatinine 0.9, Estimat Glomerular Filtration Rate > 60, Glucose Level 76, Calcium Level 8.4L, Total Bilirubin 0.6 , Aspartate Amino Transf (AST/SGOT) 23, Alanine Aminotransferase (ALT/SGPT) 26, Alkaline Phosphatase 53, Total Protein 6.0L, Albumin 2.6L, Globulin 3.4, Albumin /Globulin Ratio 0.8L, White Blood Count 7.4, Red Blood Count 5.10, Hemoglobin 13.6L, Hematocrit 42.7, Mean Corpuscular Volume 84, Mean Corpuscular Hemoglobin 26.6L, Mean Corpuscular Hemoglobin Concent 31.8L, Red Cell Distribution Width 13.2, Platelet Count 190, Mean Platelet Volume 7.1, Neutrophils (%) (Auto) 76.5H , Lymphocytes (%) (Auto) 10.5L, Monocytes (%) (Auto) 9.0, Eosinophils (%) (Auto ) 3.6H, Basophils (%) (Auto) 0.4, Phosphorus Level 2.7, Magnesium Level 1.6L, C- Reactive Protein, Quantitative 2.9H, Pro-B-Type Natriuretic Peptide 175H Height (Feet): 6 Height (Inches): 1.00 Weight (Pounds): 247 Santi Ortez MD Aug 16, 2019 10:33
[2019-08-16 12:00] VITALS: BP 136/79
--- NOTE | 2019-08-16 12:03 | Nephrology Progress Note ---
Assessment/Plan Problem List: (1) CAITLIN (acute kidney injury) (2) Hypokalemia (3) Acute respiratory failure (4) CHF (congestive heart failure) (5) COPD exacerbation Assessment Acute respiratory failure requiring intubation and mechanical ventilation , currently on FiO2 of 70% CHF (congestive heart failure), exacerbation COPD exacerbation Lymphopenia Plan Today's labs are reviewed Off Diamox and potassium supplement serum creatinine down to 1.3 Stable from renal standpoint to view Vent management per pulmonary NG tube Change feeding to Nepro Continue to monitor renal parameters IV Protonix Antibiotics Steroids is being continued 2D echocardiogram ejection fraction 55% Monitor urine output and renal parameters Monitor immunoresponse parameters Per orders Subjective ROS Limited/Unobtainable: No Constitutional: Reports: malaise Objective Objective Last 24 Hour Vital Signs Date Time Temp Pulse Resp B/P (MAP) Pulse Ox O2 Delivery O2 Flow Rate FiO2 08/16/19 11:26 97 High Flow 55.0 50 08/16/19 09:00 Venturi Mask 8.0 08/16/19 08:00 55.0 70 08/16/19 07:54 98.4 73 20 129/85 (100) 95 08/16/19 07:27 82 08/16/19 06:40 96 High Flow 55.0 70 08/16/19 04:00 98.5 70 18 136/76 (96) 93 08/16/19 04:00 71 08/16/19 04:00 Nasal Cannula 55.0 08/16/19 04:00 55.0 70 08/16/19 00:00 72 08/16/19 00:00 Nasal Cannula 55.0 08/16/19 00:00 99.2 74 20 139/79 (99) 93 08/16/19 00:00 55.0 70 08/15/19 23:05 97 High Flow 55.0 70 08/15/19 21:00 Nasal Cannula 55.0 08/15/19 20:00 55.0 70 08/15/19 20:00 73 08/15/19 20:00 99.7 72 20 149/94 (112) 97 08/15/19 19:15 96 High Flow 55.0 70 08/15/19 16:00 55.0 100 08/15/19 16:00 83 08/15/19 16:00 97.9 83 18 141/73 (95) 95 08/15/19 15:15 98 High Flow 55.0 70 Intake and Output 08/15/19 08/16/19 19:00 07:00 Intake Total 600 ml Balance 600 ml Intake Oral 600 ml # Voids 2 Laboratory Tests 08/15/19 12:30: Sodium Level 140, Potassium Level 4.2, Chloride Level 103, Carbon Dioxide Level 36H, Anion Gap 2L, Blood Urea Nitrogen 27H, Creatinine 1.0, Estimat Glomerular Filtration Rate > 60, Glucose Level 136H, Calcium Level 8.7, Total Bilirubin 0.5 , Aspartate Amino Transf (AST/SGOT) 24, Alanine Aminotransferase (ALT/SGPT) 23, Alkaline Phosphatase 62, Total Protein 6.5, Albumin 2.8L, Globulin 3.7, Albumin/ Globulin Ratio 0.8L 08/16/19 04:30: Sodium Level 140, Potassium Level 3.7, Chloride Level 102, Carbon Dioxide Level 38H, Anion Gap 0L, Blood Urea Nitrogen 20H, Creatinine 0.9, Estimat Glomerular Filtration Rate > 60, Glucose Level 76, Calcium Level 8.4L, Total Bilirubin 0.6 , Aspartate Amino Transf (AST/SGOT) 23, Alanine Aminotransferase (ALT/SGPT) 26, Alkaline Phosphatase 53, Total Protein 6.0L, Albumin 2.6L, Globulin 3.4, Albumin /Globulin Ratio 0.8L, White Blood Count 7.4, Red Blood Count 5.10, Hemoglobin 13.6L, Hematocrit 42.7, Mean Corpuscular Volume 84, Mean Corpuscular Hemoglobin 26.6L, Mean Corpuscular Hemoglobin Concent 31.8L, Red Cell Distribution Width 13.2, Platelet Count 190, Mean Platelet Volume 7.1, Neutrophils (%) (Auto) 76.5H , Lymphocytes (%) (Auto) 10.5L, Monocytes (%) (Auto) 9.0, Eosinophils (%) (Auto ) 3.6H, Basophils (%) (Auto) 0.4, Phosphorus Level 2.7, Magnesium Level 1.6L, C- Reactive Protein, Quantitative 2.9H, Pro-B-Type Natriuretic Peptide 175H Height (Feet): 6 Height (Inches): 1.00 Weight (Pounds): 247 General Appearance: no apparent distress Cardiovascular: normal rate Respiratory/Chest: decreased breath sounds Abdomen: soft, distended Objective No change Fouladian,Ovi MD Aug 16, 2019 12:03
--- NOTE | 2019-08-16 12:27 | Pulmonology Progress Note ---
Assessment/Plan Assessment/Plan IMPRESSION: 1. Decompensated congestive heart failure. 2. COPD with exacerbation 3. Respiratory failure. Now extubated. 4. Obesity. 5. Acute on chronic respiratory acidosis. 6. Pulmonary embolism DISCUSSION: Off lasix; dc Diamox On steroids Continue broad-spectrum antibiotics. Has had hemoptysis (small) Now on Xarelto; off Lovenox Continue high flow O2; will titrate doen to 40% VTM Continue anticoagulation Mitchell Cassidy M.D. Subjective Interval Events: None new Constitutional: Reports: no symptoms HEENT: Repors: no symptoms Respiratory: Reports: no symptoms Cardiovascular: Reports: no symptoms Gastrointestinal/Abdominal: Reports: no symptoms Genitourinary: Reports: no symptoms Allergies: Coded Allergies: No Known Allergies (Unverified , 07/23/16) Objective Last 24 Hour Vital Signs Date Time Temp Pulse Resp B/P (MAP) Pulse Ox O2 Delivery O2 Flow Rate FiO2 08/16/19 12:00 98.3 81 20 136/79 (98) 98 08/16/19 11:26 97 High Flow 55.0 50 08/16/19 09:00 Venturi Mask 8.0 08/16/19 08:00 55.0 70 08/16/19 07:54 98.4 73 20 129/85 (100) 95 08/16/19 07:27 82 08/16/19 06:40 96 High Flow 55.0 70 08/16/19 04:00 98.5 70 18 136/76 (96) 93 08/16/19 04:00 71 08/16/19 04:00 Nasal Cannula 55.0 08/16/19 04:00 55.0 70 08/16/19 00:00 72 08/16/19 00:00 Nasal Cannula 55.0 08/16/19 00:00 99.2 74 20 139/79 (99) 93 08/16/19 00:00 55.0 70 08/15/19 23:05 97 High Flow 55.0 70 08/15/19 21:00 Nasal Cannula 55.0 08/15/19 20:00 55.0 70 08/15/19 20:00 73 08/15/19 20:00 99.7 72 20 149/94 (112) 97 08/15/19 19:15 96 High Flow 55.0 70 08/15/19 16:00 55.0 100 08/15/19 16:00 83 08/15/19 16:00 97.9 83 18 141/73 (95) 95 08/15/19 15:15 98 High Flow 55.0 70 Intake and Output 08/15/19 08/16/19 19:00 07:00 Intake Total 600 ml Balance 600 ml Intake Oral 600 ml # Voids 2 General Appearance: no acute distress HEENT: normocephalic Respiratory/Chest: chest wall non-tender Cardiovascular: normal peripheral pulses Abdomen: normal bowel sounds Laboratory Tests 08/15/19 12:30: Sodium Level 140, Potassium Level 4.2, Chloride Level 103, Carbon Dioxide Level 36H, Anion Gap 2L, Blood Urea Nitrogen 27H, Creatinine 1.0, Estimat Glomerular Filtration Rate > 60, Glucose Level 136H, Calcium Level 8.7, Total Bilirubin 0.5 , Aspartate Amino Transf (AST/SGOT) 24, Alanine Aminotransferase (ALT/SGPT) 23, Alkaline Phosphatase 62, Total Protein 6.5, Albumin 2.8L, Globulin 3.7, Albumin/ Globulin Ratio 0.8L 08/16/19 04:30: Sodium Level 140, Potassium Level 3.7, Chloride Level 102, Carbon Dioxide Level 38H, Anion Gap 0L, Blood Urea Nitrogen 20H, Creatinine 0.9, Estimat Glomerular Filtration Rate > 60, Glucose Level 76, Calcium Level 8.4L, Total Bilirubin 0.6 , Aspartate Amino Transf (AST/SGOT) 23, Alanine Aminotransferase (ALT/SGPT) 26, Alkaline Phosphatase 53, Total Protein 6.0L, Albumin 2.6L, Globulin 3.4, Albumin /Globulin Ratio 0.8L, White Blood Count 7.4, Red Blood Count 5.10, Hemoglobin 13.6L, Hematocrit 42.7, Mean Corpuscular Volume 84, Mean Corpuscular Hemoglobin 26.6L, Mean Corpuscular Hemoglobin Concent 31.8L, Red Cell Distribution Width 13.2, Platelet Count 190, Mean Platelet Volume 7.1, Neutrophils (%) (Auto) 76.5H , Lymphocytes (%) (Auto) 10.5L, Monocytes (%) (Auto) 9.0, Eosinophils (%) (Auto ) 3.6H, Basophils (%) (Auto) 0.4, Phosphorus Level 2.7, Magnesium Level 1.6L, C- Reactive Protein, Quantitative 2.9H, Pro-B-Type Natriuretic Peptide 175H Current Medications Medications (Trade) Dose Ordered Sig/Judy Route PRN Reason Start Time Stop Time Status Last Admin Dose Admin Artificial Tears (Akwa-Tears) 2 drop Q4H PRN BOTH EYES Dry Eyes 08/13/19 18:23 09/12/19 18:22 Chlorhexidine Gluconate (Jessenia-Hex 2%) 1 applic DAILY@1999 TOPIC 08/13/19 20:00 11/04/19 19:59 08/15/19 20:49 Clonidine HCl (Catapres Tab) 0.1 mg Q4H PRN ORAL SBP>170 08/13/19 18:30 11/11/19 18:22 Dextrose (Dextrose 50%) 25 ml Q30M PRN IV Hypoglycemia 08/13/19 18:30 11/04/19 10:29 Dextrose (Dextrose 50%) 50 ml Q30M PRN IV Hypoglycemia 08/13/19 18:30 11/04/19 10:29 Docusate Sodium (Colace) 100 mg THREE TIMES A DAY ORAL 08/14/19 09:00 09/12/19 08:59 08/15/19 18:09 Hydralazine HCl (Apresoline) 10 mg Q2H PRN IV SBP>170 08/13/19 18:23 11/11/19 18:22 Magnesium Oxide (Mag-Ox 400mg) 400 mg THREE TIMES A DAY ORAL 08/16/19 13:00 09/15/19 12:59 Methylprednisolone Sodium Succinate (Solu-MEDROL) 40 mg DAILY IVP 08/14/19 09:00 11/06/19 11:19 08/16/19 10:02 Pantoprazole (Protonix) 40 mg EVERY 12 HOURS ORAL 08/13/19 21:00 09/12/19 20:59 08/16/19 08:13 Rivaroxaban (Xarelto) 10 mg DAILY ORAL 08/16/19 09:00 11/14/19 08:59 08/16/19 08:13 Mitchell Cassidy MD Aug 16, 2019 12:27
[2019-08-16] MEDS: Furosemide 40mg tab ORAL SCH (12:43)
[2019-08-16] MEDS: Magnesium Oxide 400mg tab ORAL SCH ×2 (12:43→17:07)
[2019-08-16 16:00] VITALS: BP 128/93
--- NOTE | 2019-08-16 16:08 | Cardiac Electrophysiology PN ---
Assessment/Plan Assessment/Plan 1. Respiratory failure due to combination of CHF,COPD, PNA and possible PE. His BNP is more than 5000. EF 55% with nl PAP. Extubated Ruled out for OR. Lovenox changed to Xarelto 10 daily for possible PE. On 8 liters of Venturi Mask and Lasix 40 po daily 2. PNA. Covid is negative, on prednisone 3. ARF. Cr down to 1.3 4. COPD. DW RN Subjective Subjective Still on high flow Oxygen. Covid test negativex2. No arrhythmias overnight. In SR. Nl EF Objective Last 24 Hour Vital Signs Date Time Temp Pulse Resp B/P (MAP) Pulse Ox O2 Delivery O2 Flow Rate FiO2 08/16/19 12:00 8.0 40 08/16/19 12:00 98.3 81 20 136/79 (98) 98 08/16/19 11:27 83 08/16/19 11:26 97 High Flow 55.0 50 08/16/19 09:00 Venturi Mask 8.0 08/16/19 08:00 55.0 70 08/16/19 07:54 98.4 73 20 129/85 (100) 95 08/16/19 07:27 82 08/16/19 06:40 96 High Flow 55.0 70 08/16/19 04:00 98.5 70 18 136/76 (96) 93 08/16/19 04:00 71 08/16/19 04:00 Nasal Cannula 55.0 08/16/19 04:00 55.0 70 08/16/19 00:00 72 08/16/19 00:00 Nasal Cannula 55.0 08/16/19 00:00 99.2 74 20 139/79 (99) 93 08/16/19 00:00 55.0 70 08/15/19 23:05 97 High Flow 55.0 70 08/15/19 21:00 Nasal Cannula 55.0 08/15/19 20:00 55.0 70 08/15/19 20:00 73 08/15/19 20:00 99.7 72 20 149/94 (112) 97 08/15/19 19:15 96 High Flow 55.0 70 Intake and Output 08/15/19 08/16/19 19:00 07:00 Intake Total 600 ml Balance 600 ml Intake Oral 600 ml # Voids 2 Laboratory Tests Test 08/16/19 04:30 White Blood Count 7.4 K/UL (4.8-10.8) Red Blood Count 5.10 M/UL (4.70-6.10) Hemoglobin 13.6 G/DL (14.2-18.0) L Hematocrit 42.7 % (42.0-52.0) Mean Corpuscular Volume 84 FL (80-99) Mean Corpuscular Hemoglobin 26.6 PG (27.0-31.0) L Mean Corpuscular Hemoglobin Concent 31.8 G/DL (32.0-36.0) L Red Cell Distribution Width 13.2 % (11.6-14.8) Platelet Count 190 K/UL (150-450) Mean Platelet Volume 7.1 FL (6.5-10.1) Neutrophils (%) (Auto) 76.5 % (45.0-75.0) H Lymphocytes (%) (Auto) 10.5 % (20.0-45.0) L Monocytes (%) (Auto) 9.0 % (1.0-10.0) Eosinophils (%) (Auto) 3.6 % (0.0-3.0) H Basophils (%) (Auto) 0.4 % (0.0-2.0) Sodium Level 140 MMOL/L (136-145) Potassium Level 3.7 MMOL/L (3.5-5.1) Chloride Level 102 MMOL/L (98-107) Carbon Dioxide Level 38 MMOL/L (21-32) H Anion Gap 0 mmol/L (5-15) L Blood Urea Nitrogen 20 mg/dL (7-18) H Creatinine 0.9 MG/DL (0.55-1.30) Estimat Glomerular Filtration Rate > 60 mL/min (>60) Glucose Level 76 MG/DL (74-106) Calcium Level 8.4 MG/DL (8.5-10.1) L Phosphorus Level 2.7 MG/DL (2.5-4.9) Magnesium Level 1.6 MG/DL (1.8-2.4) L Total Bilirubin 0.6 MG/DL (0.2-1.0) Aspartate Amino Transf (AST/SGOT) 23 U/L (15-37) Alanine Aminotransferase (ALT/SGPT) 26 U/L (12-78) Alkaline Phosphatase 53 U/L (46-116) C-Reactive Protein, Quantitative 2.9 mg/dL (0.00-0.90) H Pro-B-Type Natriuretic Peptide 175 pg/mL (0-125) H Total Protein 6.0 G/DL (6.4-8.2) L Albumin 2.6 G/DL (3.4-5.0) L Globulin 3.4 g/dL Albumin/Globulin Ratio 0.8 (1.0-2.7) L Objective HEAD AND NECK: No JVD. High flow oxygen in place LUNGS: Coarse rhonchi bilaterally. CARDIOVASCULAR: Regular S1 and S2 with no gallop or murmur. ABDOMEN: Soft. EXTREMITIES: 1+ pitting edema. Livan Parker MD Aug 16, 2019 16:08
[2019-08-16 20:00] VITALS: BP 122/84
[2019-08-16] MEDS: Dyna-Hex 2% Top Sol 2oz TOPIC SCH (20:00)
[2019-08-17] VITALS: BP 124/88
[2019-08-17 04:00] VITALS: BP 130/74
[2019-08-17 06:01] LABS: BASOPHILS % (AUTO) 0.3 % (0.0-2.0); EOSINOPHILS % (AUTO) 1.7 % (0.0-3.0); HEMATOCRIT 42.6 % (42.0-52.0); HEMOGLOBIN 14.1 G/DL (14.2-18.0); LYMPHOCYTES % (AUTO) 11.5 % (20.0-45.0); MEAN CORPUSCULAR VOLUME 81 FL (80-99); MONOCYTES % (AUTO) 8.8 % (1.0-10.0); NEUTROPHILS % (AUTO) 77.7 % (45.0-75.0); PLATELET COUNT 200 K/UL (150-450); RED BLOOD COUNT 5.26 M/UL (4.70-6.10); RED CELL DISTRIBUTION WIDTH 12.8 % (11.6-14.8); WHITE BLOOD COUNT 7.2 K/UL (4.8-10.8)
[2019-08-17 06:04] LABS: ANION GAP 3 mmol/L (5-15); BLOOD UREA NITROGEN 19 mg/dL (7-18); CARBON DIOXIDE 36 MMOL/L (21-32); CHLORIDE 103 MMOL/L (98-107); POTASSIUM 4.2 MMOL/L (3.5-5.1); SODIUM 142 MMOL/L (136-145)
[2019-08-17 08:00] VITALS: BP 149/70
[2019-08-17] MEDS: Furosemide 40mg tab ORAL SCH (09:13)
[2019-08-17] MEDS: Magnesium Oxide 400mg tab ORAL SCH ×3 (09:13→17:19)
[2019-08-17] MEDS: Docusate 100mg cap ORAL SCH ×3 (09:13→17:19)
[2019-08-17] MEDS: Xarelto 10mg tab ORAL SCH (09:13)
--- NOTE | 2019-08-17 09:14 | Nephrology Progress Note ---
Assessment/Plan Problem List: (1) CAITLIN (acute kidney injury) (2) Hypokalemia (3) Acute respiratory failure (4) CHF (congestive heart failure) (5) COPD exacerbation Assessment Acute respiratory failure requiring intubation and mechanical ventilation , currently on FiO2 of 70% CHF (congestive heart failure), exacerbation COPD exacerbation Lymphopenia Plan Today's labs are reviewed Off Diamox and potassium supplement serum creatinine down Stable from renal standpoint to view Vent management per pulmonary NG tube Change feeding to Nepro Continue to monitor renal parameters IV Protonix Antibiotics Steroids is being continued 2D echocardiogram ejection fraction 55% Monitor urine output and renal parameters Monitor immunoresponse parameters Per orders Subjective ROS Limited/Unobtainable: No Constitutional: Reports: malaise Objective Objective Last 24 Hour Vital Signs Date Time Temp Pulse Resp B/P (MAP) Pulse Ox O2 Delivery O2 Flow Rate FiO2 08/17/19 08:00 81 08/17/19 08:00 97.9 83 19 149/70 (96) 97 08/17/19 04:00 97.8 78 18 130/74 (92) 93 08/17/19 04:00 108 08/17/19 04:00 4.0 08/17/19 00:00 71 08/17/19 00:00 4.0 08/17/19 00:00 98.1 88 18 124/88 (100) 99 08/16/19 22:40 94 Nasal Cannula 4.0 36 08/16/19 21:00 Venturi Mask 8.0 08/16/19 20:00 71 08/16/19 20:00 8.0 40 08/16/19 20:00 98.2 92 20 122/84 (97) 100 08/16/19 16:00 8.0 40 08/16/19 16:00 98.4 72 18 128/93 (105) 97 08/16/19 15:28 71 08/16/19 12:00 8.0 40 08/16/19 12:00 98.3 81 20 136/79 (98) 98 08/16/19 11:27 83 08/16/19 11:26 97 High Flow 55.0 50 Intake and Output 08/16/19 08/17/19 19:00 07:00 Intake Total 240 ml 480 ml Balance 240 ml 480 ml Intake Oral 240 ml 480 ml # Voids 4 3 Laboratory Tests 08/17/19 05:00: White Blood Count 7.2, Red Blood Count 5.26, Hemoglobin 14.1L, Hematocrit 42.6, Mean Corpuscular Volume 81, Mean Corpuscular Hemoglobin 26.8L, Mean Corpuscular Hemoglobin Concent 33.1, Red Cell Distribution Width 12.8, Platelet Count 200, Mean Platelet Volume 6.8, Neutrophils (%) (Auto) 77.7H, Lymphocytes (%) (Auto) 11.5L, Monocytes (%) (Auto) 8.8, Eosinophils (%) (Auto) 1.7, Basophils (%) (Auto ) 0.3, Sodium Level 142, Potassium Level 4.2, Chloride Level 103, Carbon Dioxide Level 36H, Anion Gap 3L, Blood Urea Nitrogen 19H, Creatinine 1.0, Estimat Glomerular Filtration Rate > 60, Glucose Level 80, Calcium Level 8.0L Height (Feet): 6 Height (Inches): 1.00 Weight (Pounds): 244 General Appearance: no apparent distress EENT: other - On high flow oxygen Respiratory/Chest: decreased breath sounds Abdomen: soft Objective No change Ovi Byrnes MD Aug 17, 2019 09:14
--- NOTE | 2019-08-17 09:55 | Hematology/Onc Progress Note ---
Assessment/Plan Assessment/Plan # Pulmonary embolism cta: Positive for pulmonary embolus in the right middle lobe pulmonary artery and superior segmental branch of the right lower lobe pulmonary artery --> Has been started on lovenox bid dosing --> can consider once discharged xarelto --> agree with cardiology/pulm recs # Elevated d-dimer -- multiple etiologies, but may be due to CHF,COPD, PNA and possible PE. --> His BNP is more than 5000. EF 55% with nl PAP. Extubated also --> remains on On Lovenox 100 bid for possible PE --> duplex lower legs negative # Leukocytosis may be due to PNA. Covid is negative, on Solumedrol off abx. ==> Repeat CXR as needed --> off steriods per pulm --> covid negative # ARF. Cr down to 1.3 --> as per Dr. Byrnes # COPD without exacerbation # Dvt ppx lovenox Appreciate consultation and fannie rn Subjective Allergies: Coded Allergies: No Known Allergies (Unverified , 07/23/16) Subjective 08/13 labs have been reviewed, no bleeding, duplex ordered 08/14 ct confirms pe, off steroids and abx, casey duplex le negative, no sob 08/16 awake and alert, nc 4l, no acute distress, xarelto Objective Objective Current Medications Medications (Trade) Dose Ordered Sig/Judy Route PRN Reason Start Time Stop Time Status Last Admin Dose Admin Artificial Tears (Akwa-Tears) 2 drop Q4H PRN BOTH EYES Dry Eyes 08/13/19 18:23 09/12/19 18:22 Chlorhexidine Gluconate (Jessenia-Hex 2%) 1 applic DAILY@1999 TOPIC 08/13/19 20:00 11/04/19 19:59 08/16/19 20:00 Clonidine HCl (Catapres Tab) 0.1 mg Q4H PRN ORAL SBP>170 08/13/19 18:30 11/11/19 18:22 Dextrose (Dextrose 50%) 25 ml Q30M PRN IV Hypoglycemia 08/13/19 18:30 11/04/19 10:29 Dextrose (Dextrose 50%) 50 ml Q30M PRN IV Hypoglycemia 08/13/19 18:30 11/04/19 10:29 Docusate Sodium (Colace) 100 mg THREE TIMES A DAY ORAL 08/14/19 09:00 09/12/19 08:59 08/17/19 09:13 Furosemide (Lasix) 40 mg DAILY ORAL 08/16/19 12:30 09/15/19 12:29 08/17/19 09:13 Hydralazine HCl (Apresoline) 10 mg Q2H PRN IV SBP>170 08/13/19 18:23 11/11/19 18:22 Magnesium Oxide (Mag-Ox 400mg) 400 mg THREE TIMES A DAY ORAL 08/16/19 13:00 09/15/19 12:59 08/17/19 09:13 Pantoprazole (Protonix) 40 mg EVERY 12 HOURS ORAL 08/13/19 21:00 09/12/19 20:59 08/17/19 09:13 Prednisone (predniSONE) 10 mg DAILY ORAL 08/17/19 09:00 09/16/19 08:59 08/17/19 09:13 Rivaroxaban (Xarelto) 10 mg DAILY ORAL 08/16/19 09:00 11/14/19 08:59 08/17/19 09:13 Last 24 Hour Vital Signs Date Time Temp Pulse Resp B/P (MAP) Pulse Ox O2 Delivery O2 Flow Rate FiO2 08/17/19 08:00 81 08/17/19 08:00 97.9 83 19 149/70 (96) 97 08/17/19 04:00 97.8 78 18 130/74 (92) 93 08/17/19 04:00 108 08/17/19 04:00 4.0 08/17/19 00:00 71 08/17/19 00:00 4.0 08/17/19 00:00 98.1 88 18 124/88 (100) 99 08/16/19 22:40 94 Nasal Cannula 4.0 36 08/16/19 21:00 Venturi Mask 8.0 08/16/19 20:00 71 08/16/19 20:00 8.0 40 08/16/19 20:00 98.2 92 20 122/84 (97) 100 08/16/19 16:00 8.0 40 08/16/19 16:00 98.4 72 18 128/93 (105) 97 08/16/19 15:28 71 08/16/19 12:00 8.0 40 08/16/19 12:00 98.3 81 20 136/79 (98) 98 08/16/19 11:27 83 08/16/19 11:26 97 High Flow 55.0 50 08/16/19 09:00 Venturi Mask 8.0 08/16/19 08:00 55.0 70 08/16/19 07:54 98.4 73 20 129/85 (100) 95 08/16/19 07:27 82 08/16/19 06:40 96 High Flow 55.0 70 08/16/19 04:00 98.5 70 18 136/76 (96) 93 08/16/19 04:00 71 08/16/19 04:00 Nasal Cannula 55.0 08/16/19 04:00 55.0 70 08/16/19 00:00 72 08/16/19 00:00 Nasal Cannula 55.0 08/16/19 00:00 99.2 74 20 139/79 (99) 93 08/16/19 00:00 55.0 70 08/15/19 23:05 97 High Flow 55.0 70 08/15/19 21:00 Nasal Cannula 55.0 08/15/19 20:00 55.0 70 08/15/19 20:00 73 08/15/19 20:00 99.7 72 20 149/94 (112) 97 08/15/19 19:15 96 High Flow 55.0 70 08/15/19 16:00 55.0 100 08/15/19 16:00 83 08/15/19 16:00 97.9 83 18 141/73 (95) 95 08/15/19 15:15 98 High Flow 55.0 70 08/15/19 12:00 55.0 100 08/15/19 12:00 99.9 78 20 121/77 (92) 99 08/15/19 12:00 79 08/15/19 11:40 91 High Flow 55.0 80 08/15/19 11:19 95 High Flow 55.0 100 Intake and Output 08/16/19 08/17/19 19:00 07:00 Intake Total 240 ml 480 ml Balance 240 ml 480 ml Intake Oral 240 ml 480 ml # Voids 4 3 Labs Test 08/15/19 12:30 08/16/19 04:30 08/17/19 05:00 Sodium Level 140 MMOL/L (136-145) 140 MMOL/L (136-145) 142 MMOL/L (136-145) Potassium Level 4.2 MMOL/L (3.5-5.1) 3.7 MMOL/L (3.5-5.1) 4.2 MMOL/L (3.5-5.1) Chloride Level 103 MMOL/L (98-107) 102 MMOL/L (98-107) 103 MMOL/L (98-107) Carbon Dioxide Level 36 MMOL/L (21-32) 38 MMOL/L (21-32) 36 MMOL/L (21-32) Anion Gap 2 mmol/L (5-15) 0 mmol/L (5-15) 3 mmol/L (5-15) Blood Urea Nitrogen 27 mg/dL (7-18) 20 mg/dL (7-18) 19 mg/dL (7-18) Creatinine 1.0 MG/DL (0.55-1.30) 0.9 MG/DL (0.55-1.30) 1.0 MG/DL (0.55-1.30) Estimat Glomerular Filtration Rate > 60 mL/min (>60) > 60 mL/min (>60) > 60 mL/min (>60) Glucose Level 136 MG/DL (74-106) 76 MG/DL (74-106) 80 MG/DL (74-106) Calcium Level 8.7 MG/DL (8.5-10.1) 8.4 MG/DL (8.5-10.1) 8.0 MG/DL (8.5-10.1) Total Bilirubin 0.5 MG/DL (0.2-1.0) 0.6 MG/DL (0.2-1.0) Aspartate Amino Transf (AST/SGOT) 24 U/L (15-37) 23 U/L (15-37) Alanine Aminotransferase (ALT/SGPT) 23 U/L (12-78) 26 U/L (12-78) Alkaline Phosphatase 62 U/L (46-116) 53 U/L (46-116) Total Protein 6.5 G/DL (6.4-8.2) 6.0 G/DL (6.4-8.2) Albumin 2.8 G/DL (3.4-5.0) 2.6 G/DL (3.4-5.0) Globulin 3.7 g/dL 3.4 g/dL Albumin/Globulin Ratio 0.8 (1.0-2.7) 0.8 (1.0-2.7) White Blood Count 7.4 K/UL (4.8-10.8) 7.2 K/UL (4.8-10.8) Red Blood Count 5.10 M/UL (4.70-6.10) 5.26 M/UL (4.70-6.10) Hemoglobin 13.6 G/DL (14.2-18.0) 14.1 G/DL (14.2-18.0) Hematocrit 42.7 % (42.0-52.0) 42.6 % (42.0-52.0) Mean Corpuscular Volume 84 FL (80-99) 81 FL (80-99) Mean Corpuscular Hemoglobin 26.6 PG (27.0-31.0) 26.8 PG (27.0-31.0) Mean Corpuscular Hemoglobin Concent 31.8 G/DL (32.0-36.0) 33.1 G/DL (32.0-36.0) Red Cell Distribution Width 13.2 % (11.6-14.8) 12.8 % (11.6-14.8) Platelet Count 190 K/UL (150-450) 200 K/UL (150-450) Mean Platelet Volume 7.1 FL (6.5-10.1) 6.8 FL (6.5-10.1) Neutrophils (%) (Auto) 76.5 % (45.0-75.0) 77.7 % (45.0-75.0) Lymphocytes (%) (Auto) 10.5 % (20.0-45.0) 11.5 % (20.0-45.0) Monocytes (%) (Auto) 9.0 % (1.0-10.0) 8.8 % (1.0-10.0) Eosinophils (%) (Auto) 3.6 % (0.0-3.0) 1.7 % (0.0-3.0) Basophils (%) (Auto) 0.4 % (0.0-2.0) 0.3 % (0.0-2.0) Phosphorus Level 2.7 MG/DL (2.5-4.9) Magnesium Level 1.6 MG/DL (1.8-2.4) C-Reactive Protein, Quantitative 2.9 mg/dL (0.00-0.90) Pro-B-Type Natriuretic Peptide 175 pg/mL (0-125) Height (Feet): 6 Height (Inches): 1.00 Weight (Pounds): 244 Objective Physical Exam: Vitals: reviewed General: NAD HEENT: nc, at Neck: supple Chest: clear breath sounds bilaterally, nc++ Cardiovascular: RRR, no s3, s4 Neuro: alert and oriented : carlos manuel+ Juanito Castellanos MD Aug 17, 2019 09:55
--- NOTE | 2019-08-17 10:18 | Pulmonology Progress Note ---
Assessment/Plan Assessment/Plan IMPRESSION: 1. Decompensated congestive heart failure. 2. COPD with exacerbation 3. Respiratory failure. Now extubated. 4. Obesity. 5. Acute on chronic respiratory acidosis. 6. Pulmonary embolism DISCUSSION: Resumed Lasix; off Diamox On steroids Continue broad-spectrum antibiotics. Has had hemoptysis (small) Now on Xarelto; off Lovenox Continue high flow O2; will titrate down as tolerated Continue anticoagulation Mitchell Cassidy M.D. Subjective Interval Events: None new Constitutional: Reports: no symptoms HEENT: Repors: no symptoms Respiratory: Reports: no symptoms Cardiovascular: Reports: no symptoms Gastrointestinal/Abdominal: Reports: no symptoms Allergies: Coded Allergies: No Known Allergies (Unverified , 07/23/16) Objective Last 24 Hour Vital Signs Date Time Temp Pulse Resp B/P (MAP) Pulse Ox O2 Delivery O2 Flow Rate FiO2 08/17/19 08:00 81 08/17/19 08:00 97.9 83 19 149/70 (96) 97 08/17/19 04:00 97.8 78 18 130/74 (92) 93 08/17/19 04:00 108 08/17/19 04:00 4.0 08/17/19 00:00 71 08/17/19 00:00 4.0 08/17/19 00:00 98.1 88 18 124/88 (100) 99 08/16/19 22:40 94 Nasal Cannula 4.0 36 08/16/19 21:00 Venturi Mask 8.0 08/16/19 20:00 71 08/16/19 20:00 8.0 40 08/16/19 20:00 98.2 92 20 122/84 (97) 100 08/16/19 16:00 8.0 40 08/16/19 16:00 98.4 72 18 128/93 (105) 97 08/16/19 15:28 71 08/16/19 12:00 8.0 40 08/16/19 12:00 98.3 81 20 136/79 (98) 98 08/16/19 11:27 83 08/16/19 11:26 97 High Flow 55.0 50 Intake and Output 08/16/19 08/17/19 19:00 07:00 Intake Total 240 ml 480 ml Balance 240 ml 480 ml Intake Oral 240 ml 480 ml # Voids 4 3 General Appearance: no acute distress HEENT: normocephalic, atraumatic Respiratory/Chest: chest wall non-tender Cardiovascular: normal peripheral pulses Abdomen: normal bowel sounds Laboratory Tests 08/17/19 05:00: White Blood Count 7.2, Red Blood Count 5.26, Hemoglobin 14.1L, Hematocrit 42.6, Mean Corpuscular Volume 81, Mean Corpuscular Hemoglobin 26.8L, Mean Corpuscular Hemoglobin Concent 33.1, Red Cell Distribution Width 12.8, Platelet Count 200, Mean Platelet Volume 6.8, Neutrophils (%) (Auto) 77.7H, Lymphocytes (%) (Auto) 11.5L, Monocytes (%) (Auto) 8.8, Eosinophils (%) (Auto) 1.7, Basophils (%) (Auto ) 0.3, Sodium Level 142, Potassium Level 4.2, Chloride Level 103, Carbon Dioxide Level 36H, Anion Gap 3L, Blood Urea Nitrogen 19H, Creatinine 1.0, Estimat Glomerular Filtration Rate > 60, Glucose Level 80, Calcium Level 8.0L Current Medications Medications (Trade) Dose Ordered Sig/Judy Route PRN Reason Start Time Stop Time Status Last Admin Dose Admin Artificial Tears (Akwa-Tears) 2 drop Q4H PRN BOTH EYES Dry Eyes 08/13/19 18:23 09/12/19 18:22 Chlorhexidine Gluconate (Jessenia-Hex 2%) 1 applic DAILY@1999 TOPIC 08/13/19 20:00 11/04/19 19:59 08/16/19 20:00 Clonidine HCl (Catapres Tab) 0.1 mg Q4H PRN ORAL SBP>170 08/13/19 18:30 11/11/19 18:22 Dextrose (Dextrose 50%) 25 ml Q30M PRN IV Hypoglycemia 08/13/19 18:30 11/04/19 10:29 Dextrose (Dextrose 50%) 50 ml Q30M PRN IV Hypoglycemia 08/13/19 18:30 11/04/19 10:29 Docusate Sodium (Colace) 100 mg THREE TIMES A DAY ORAL 08/14/19 09:00 09/12/19 08:59 08/17/19 09:13 Furosemide (Lasix) 40 mg DAILY ORAL 08/16/19 12:30 09/15/19 12:29 08/17/19 09:13 Hydralazine HCl (Apresoline) 10 mg Q2H PRN IV SBP>170 08/13/19 18:23 11/11/19 18:22 Magnesium Oxide (Mag-Ox 400mg) 400 mg THREE TIMES A DAY ORAL 08/16/19 13:00 09/15/19 12:59 08/17/19 09:13 Pantoprazole (Protonix) 40 mg EVERY 12 HOURS ORAL 08/13/19 21:00 09/12/19 20:59 08/17/19 09:13 Prednisone (predniSONE) 10 mg DAILY ORAL 08/17/19 09:00 09/16/19 08:59 08/17/19 09:13 Rivaroxaban (Xarelto) 10 mg DAILY ORAL 08/16/19 09:00 11/14/19 08:59 08/17/19 09:13 Mitchell Cassidy MD Aug 17, 2019 10:18
[2019-08-17 12:00] VITALS: BP 118/84
--- NOTE | 2019-08-17 12:43 | Infectious Diseases Prog Note ---
Assessment/Plan Assessment/Plan IMPRESSION: COPD exacerbation, Hypercapnic respiratory failure CHF exacerbation, Diastolic Hypertension, Pulmonary hypertension, Chronic kidney disease, sleep apnea. Leukocytosis, likely steroid related Pulmonary embolism RECOMMENDATION: Observe off antibiotic Negative COVID19 tests X 2 sputum culture: normal fly Subjective ROS Limited/Unobtainable: No Constitutional: Reports: no symptoms, other - feels better Respiratory: Reports: productive cough; Denies: shortness of breath Cardiovascular: Reports: no symptoms Gastrointestinal/Abdominal: Reports: no symptoms Allergies: Coded Allergies: No Known Allergies (Unverified , 07/23/16) Objective Vital Signs Last 24 Hour Vital Signs Date Time Temp Pulse Resp B/P (MAP) Pulse Ox O2 Delivery O2 Flow Rate FiO2 08/17/19 08:00 81 08/17/19 08:00 97.9 83 19 149/70 (96) 97 08/17/19 04:00 97.8 78 18 130/74 (92) 93 08/17/19 04:00 108 08/17/19 04:00 4.0 08/17/19 00:00 71 08/17/19 00:00 4.0 08/17/19 00:00 98.1 88 18 124/88 (100) 99 08/16/19 22:40 94 Nasal Cannula 4.0 36 08/16/19 21:00 Venturi Mask 8.0 08/16/19 20:00 71 08/16/19 20:00 8.0 40 08/16/19 20:00 98.2 92 20 122/84 (97) 100 08/16/19 16:00 8.0 40 08/16/19 16:00 98.4 72 18 128/93 (105) 97 08/16/19 15:28 71 Height (Feet): 6 Height (Inches): 1.00 Weight (Pounds): 244 General Appearance: no acute distress HEENT: mucous membranes moist Respiratory/Chest: lungs clear Cardiovascular: normal rate Abdomen: soft, non tender Extremities: other - trace edema Neurologic/Psychiatric: alert, oriented x 3, responsive Laboratory Tests Test 08/17/19 05:00 White Blood Count 7.2 K/UL (4.8-10.8) Red Blood Count 5.26 M/UL (4.70-6.10) Hemoglobin 14.1 G/DL (14.2-18.0) L Hematocrit 42.6 % (42.0-52.0) Mean Corpuscular Volume 81 FL (80-99) Mean Corpuscular Hemoglobin 26.8 PG (27.0-31.0) L Mean Corpuscular Hemoglobin Concent 33.1 G/DL (32.0-36.0) Red Cell Distribution Width 12.8 % (11.6-14.8) Platelet Count 200 K/UL (150-450) Mean Platelet Volume 6.8 FL (6.5-10.1) Neutrophils (%) (Auto) 77.7 % (45.0-75.0) H Lymphocytes (%) (Auto) 11.5 % (20.0-45.0) L Monocytes (%) (Auto) 8.8 % (1.0-10.0) Eosinophils (%) (Auto) 1.7 % (0.0-3.0) Basophils (%) (Auto) 0.3 % (0.0-2.0) Sodium Level 142 MMOL/L (136-145) Potassium Level 4.2 MMOL/L (3.5-5.1) Chloride Level 103 MMOL/L (98-107) Carbon Dioxide Level 36 MMOL/L (21-32) H Anion Gap 3 mmol/L (5-15) L Blood Urea Nitrogen 19 mg/dL (7-18) H Creatinine 1.0 MG/DL (0.55-1.30) Estimat Glomerular Filtration Rate > 60 mL/min (>60) Glucose Level 80 MG/DL (74-106) Calcium Level 8.0 MG/DL (8.5-10.1) L Current Medications Medications (Trade) Dose Ordered Sig/Judy Route PRN Reason Start Time Stop Time Status Last Admin Dose Admin Artificial Tears (Akwa-Tears) 2 drop Q4H PRN BOTH EYES Dry Eyes 08/13/19 18:23 09/12/19 18:22 Chlorhexidine Gluconate (Jessenia-Hex 2%) 1 applic DAILY@2000 TOPIC 08/13/19 20:00 11/04/19 19:59 08/16/19 20:00 Clonidine HCl (Catapres Tab) 0.1 mg Q4H PRN ORAL SBP>170 08/13/19 18:30 11/11/19 18:22 Dextrose (Dextrose 50%) 25 ml Q30M PRN IV Hypoglycemia 08/13/19 18:30 11/04/19 10:29 Dextrose (Dextrose 50%) 50 ml Q30M PRN IV Hypoglycemia 08/13/19 18:30 11/04/19 10:29 Docusate Sodium (Colace) 100 mg THREE TIMES A DAY ORAL 08/14/19 09:00 09/12/19 08:59 08/17/19 09:13 Furosemide (Lasix) 40 mg DAILY ORAL 08/16/19 12:30 09/15/19 12:29 08/17/19 09:13 Hydralazine HCl (Apresoline) 10 mg Q2H PRN IV SBP>170 08/13/19 18:23 11/11/19 18:22 Magnesium Oxide (Mag-Ox 400mg) 400 mg THREE TIMES A DAY ORAL 08/16/19 13:00 09/15/19 12:59 08/17/19 09:13 Pantoprazole (Protonix) 40 mg EVERY 12 HOURS ORAL 08/13/19 21:00 09/12/19 20:59 08/17/19 09:13 Prednisone (predniSONE) 10 mg DAILY ORAL 08/17/19 09:00 09/16/19 08:59 08/17/19 09:13 Rivaroxaban (Xarelto) 10 mg DAILY ORAL 08/16/19 09:00 11/14/19 08:59 08/17/19 09:13 Jesús Rose MD Aug 17, 2019 12:43
[2019-08-17 16:00] VITALS: BP 127/79
--- NOTE | 2019-08-17 18:32 | General Progress Note ---
Assessment/Plan Problem List: (1) Respiratory failure ICD Codes: J96.90 - Respiratory failure, unspecified, unspecified whether with hypoxia or hypercapnia SNOMED: 965794090 (2) CHF exacerbation ICD Codes: I50.9 - Heart failure, unspecified SNOMED: 381057864, 02806936884014 (3) COPD exacerbation ICD Codes: J44.1 - Chronic obstructive pulmonary disease with (acute) exacerbation SNOMED: 073390777 (4) Acute respiratory failure ICD Codes: J96.00 - Acute respiratory failure, unspecified whether with hypoxia or hypercapnia SNOMED: 73972266 (5) ATN (acute tubular necrosis) ICD Codes: N17.0 - Acute kidney failure with tubular necrosis SNOMED: 25217929 (6) Nephrotic syndrome ICD Codes: N04.9 - Nephrotic syndrome with unspecified morphologic changes SNOMED: 31040536 Status: progressing, unchanged Assessment/Plan: high flow oxygen poor prognosis anticoagulation no wheezing pulmonary embolus chf copd resp insuff Subjective ROS Limited/Unobtainable: Yes Allergies: Coded Allergies: No Known Allergies (Unverified , 07/23/16) Objective Last 24 Hour Vital Signs Date Time Temp Pulse Resp B/P (MAP) Pulse Ox O2 Delivery O2 Flow Rate FiO2 08/17/19 16:00 98.9 80 19 127/79 (95) 97 08/17/19 16:00 81 08/17/19 12:00 85 08/17/19 12:00 98.1 83 18 118/84 (95) 94 08/17/19 09:00 Nasal Cannula 4.0 08/17/19 08:00 81 08/17/19 08:00 97.9 83 19 149/70 (96) 97 08/17/19 04:00 97.8 78 18 130/74 (92) 93 08/17/19 04:00 108 08/17/19 04:00 4.0 08/17/19 00:00 71 08/17/19 00:00 4.0 08/17/19 00:00 98.1 88 18 124/88 (100) 99 08/16/19 22:40 94 Nasal Cannula 4.0 36 08/16/19 21:00 Venturi Mask 8.0 08/16/19 20:00 71 08/16/19 20:00 8.0 40 08/16/19 20:00 98.2 92 20 122/84 (97) 100 Intake and Output 08/16/19 08/17/19 19:00 07:00 Intake Total 240 ml 480 ml Balance 240 ml 480 ml Intake Oral 240 ml 480 ml # Voids 4 3 Laboratory Tests 08/17/19 05:00: White Blood Count 7.2, Red Blood Count 5.26, Hemoglobin 14.1L, Hematocrit 42.6, Mean Corpuscular Volume 81, Mean Corpuscular Hemoglobin 26.8L, Mean Corpuscular Hemoglobin Concent 33.1, Red Cell Distribution Width 12.8, Platelet Count 200, Mean Platelet Volume 6.8, Neutrophils (%) (Auto) 77.7H, Lymphocytes (%) (Auto) 11.5L, Monocytes (%) (Auto) 8.8, Eosinophils (%) (Auto) 1.7, Basophils (%) (Auto ) 0.3, Sodium Level 142, Potassium Level 4.2, Chloride Level 103, Carbon Dioxide Level 36H, Anion Gap 3L, Blood Urea Nitrogen 19H, Creatinine 1.0, Estimat Glomerular Filtration Rate > 60, Glucose Level 80, Calcium Level 8.0L Height (Feet): 6 Height (Inches): 1.00 Weight (Pounds): 244 Santi Ortez MD Aug 17, 2019 18:32
[2019-08-17 20:00] VITALS: BP 121/81
[2019-08-17] MEDS: Dyna-Hex 2% Top Sol 2oz TOPIC SCH (20:08)
[2019-08-18] VITALS: BP 127/66
[2019-08-18 04:00] VITALS: BP 126/63
--- NOTE | 2019-08-18 06:43 | Hematology/Onc Progress Note ---
Assessment/Plan Assessment/Plan # Pulmonary embolism cta: Positive for pulmonary embolus in the right middle lobe pulmonary artery and superior segmental branch of the right lower lobe pulmonary artery --> now on xarelto --> x 3 months minimum anticoag --> agree with cardiology/pulm recs # Elevated d-dimer -- multiple etiologies, but may be due to CHF,COPD, PNA and possible PE. --> His BNP is more than 5000. EF 55% with nl PAP. Extubated also --> remains on On Lovenox 100 bid for possible PE --> duplex lower legs negative # Leukocytosis may be due to PNA. Covid is negative, on Solumedrol off abx. ==> Repeat CXR as needed --> off steriods per pulm --> covid negative # ARF. Cr down to 1.3 --> as per Dr. Byrnes # COPD without exacerbation # Dvt ppx xarelto Appreciate consultation and fannie rn Subjective HEENT: Denies: no symptoms, eye pain, blurred vision, tearing, double vision, ear pain, ear discharge, nose pain, nose congestion, throat pain, throat swelling, mouth pain, mouth swelling, other Cardiovascular: Denies: no symptoms, chest pain, edema, irregular heart rate, lightheadedness, palpitations, syncope, other Gastrointestinal/Abdominal: Denies: no symptoms, abdomen distended, abdominal pain, black stools, tarry stools, blood in stool, constipated, diarrhea, difficulty swallowing, nausea, poor appetite, poor fluid intake, rectal bleeding , vomiting, other Neurologic/Psychiatric: Denies: no symptoms, anxiety, depressed, emotional problems, headache, numbness, paresthesia, pre-existing deficit, seizure, tingling, tremors, weakness, other Endocrine: Denies: no symptoms, excessive sweating, flushing, intolerance to cold, intolerance to heat, increased hunger, increased thirst, increased urine, unexplained weight gain, unexplained weight loss, other Hematologic/Lymphatic: Denies: no symptoms, anemia, easy bleeding, easy bruising, adenopathy, other Allergies: Coded Allergies: No Known Allergies (Unverified , 07/23/16) Subjective 08/13 labs have been reviewed, no bleeding, duplex ordered 08/14 ct confirms pe, off steroids and abx, casey duplex le negative, no sob 08/16 awake and alert, nc 4l, no acute distress, xarelto 08/17 awake, alert, no bleeding, on anticoag, no bleeding Objective Objective Current Medications Medications (Trade) Dose Ordered Sig/Judy Route PRN Reason Start Time Stop Time Status Last Admin Dose Admin Artificial Tears (Akwa-Tears) 2 drop Q4H PRN BOTH EYES Dry Eyes 08/13/19 18:23 09/12/19 18:22 Chlorhexidine Gluconate (Jessenia-Hex 2%) 1 applic DAILY@1999 TOPIC 08/13/19 20:00 11/04/19 19:59 08/17/19 20:08 Clonidine HCl (Catapres Tab) 0.1 mg Q4H PRN ORAL SBP>170 08/13/19 18:30 11/11/19 18:22 Dextrose (Dextrose 50%) 25 ml Q30M PRN IV Hypoglycemia 08/13/19 18:30 11/04/19 10:29 Dextrose (Dextrose 50%) 50 ml Q30M PRN IV Hypoglycemia 08/13/19 18:30 11/04/19 10:29 Docusate Sodium (Colace) 100 mg THREE TIMES A DAY ORAL 08/14/19 09:00 09/12/19 08:59 08/17/19 17:19 Furosemide (Lasix) 40 mg DAILY ORAL 08/16/19 12:30 09/15/19 12:29 08/17/19 09:13 Hydralazine HCl (Apresoline) 10 mg Q2H PRN IV SBP>170 08/13/19 18:23 11/11/19 18:22 Magnesium Oxide (Mag-Ox 400mg) 400 mg THREE TIMES A DAY ORAL 08/16/19 13:00 09/15/19 12:59 08/17/19 17:19 Pantoprazole (Protonix) 40 mg EVERY 12 HOURS ORAL 08/13/19 21:00 09/12/19 20:59 08/17/19 20:08 Prednisone (predniSONE) 10 mg DAILY ORAL 08/17/19 09:00 09/16/19 08:59 08/17/19 09:13 Rivaroxaban (Xarelto) 10 mg DAILY ORAL 08/16/19 09:00 11/14/19 08:59 08/17/19 09:13 Last 24 Hour Vital Signs Date Time Temp Pulse Resp B/P (MAP) Pulse Ox O2 Delivery O2 Flow Rate FiO2 08/18/19 04:00 98.6 72 18 126/63 (84) 94 08/18/19 04:00 70 08/18/19 00:00 76 08/18/19 00:00 98.9 72 18 127/66 (86) 99 08/17/19 21:00 Venturi Mask 8.0 08/17/19 20:00 82 08/17/19 20:00 98.9 78 20 121/81 (94) 99 08/17/19 16:00 98.9 80 19 127/79 (95) 97 08/17/19 16:00 81 08/17/19 12:00 85 08/17/19 12:00 98.1 83 18 118/84 (95) 94 08/17/19 09:00 Nasal Cannula 4.0 08/17/19 08:00 81 08/17/19 08:00 97.9 83 19 149/70 (96) 97 08/17/19 04:00 97.8 78 18 130/74 (92) 93 08/17/19 04:00 108 08/17/19 04:00 4.0 08/17/19 00:00 71 08/17/19 00:00 4.0 08/17/19 00:00 98.1 88 18 124/88 (100) 99 08/16/19 22:40 94 Nasal Cannula 4.0 36 08/16/19 21:00 Venturi Mask 8.0 08/16/19 20:00 71 08/16/19 20:00 8.0 40 08/16/19 20:00 98.2 92 20 122/84 (97) 100 08/16/19 16:00 8.0 40 08/16/19 16:00 98.4 72 18 128/93 (105) 97 08/16/19 15:28 71 08/16/19 12:00 8.0 40 08/16/19 12:00 98.3 81 20 136/79 (98) 98 08/16/19 11:27 83 08/16/19 11:26 97 High Flow 55.0 50 08/16/19 09:00 Venturi Mask 8.0 08/16/19 08:00 55.0 70 08/16/19 07:54 98.4 73 20 129/85 (100) 95 08/16/19 07:27 82 Intake and Output 08/17/19 08/18/19 19:00 07:00 Intake Total 1000 ml Balance 1000 ml Intake Oral 1000 ml # Voids 6 4 # Bowel Movements 3 Labs Test 08/15/19 12:30 08/16/19 04:30 08/17/19 05:00 Sodium Level 140 MMOL/L (136-145) 140 MMOL/L (136-145) 142 MMOL/L (136-145) Potassium Level 4.2 MMOL/L (3.5-5.1) 3.7 MMOL/L (3.5-5.1) 4.2 MMOL/L (3.5-5.1) Chloride Level 103 MMOL/L (98-107) 102 MMOL/L (98-107) 103 MMOL/L (98-107) Carbon Dioxide Level 36 MMOL/L (21-32) 38 MMOL/L (21-32) 36 MMOL/L (21-32) Anion Gap 2 mmol/L (5-15) 0 mmol/L (5-15) 3 mmol/L (5-15) Blood Urea Nitrogen 27 mg/dL (7-18) 20 mg/dL (7-18) 19 mg/dL (7-18) Creatinine 1.0 MG/DL (0.55-1.30) 0.9 MG/DL (0.55-1.30) 1.0 MG/DL (0.55-1.30) Estimat Glomerular Filtration Rate > 60 mL/min (>60) > 60 mL/min (>60) > 60 mL/min (>60) Glucose Level 136 MG/DL (74-106) 76 MG/DL (74-106) 80 MG/DL (74-106) Calcium Level 8.7 MG/DL (8.5-10.1) 8.4 MG/DL (8.5-10.1) 8.0 MG/DL (8.5-10.1) Total Bilirubin 0.5 MG/DL (0.2-1.0) 0.6 MG/DL (0.2-1.0) Aspartate Amino Transf (AST/SGOT) 24 U/L (15-37) 23 U/L (15-37) Alanine Aminotransferase (ALT/SGPT) 23 U/L (12-78) 26 U/L (12-78) Alkaline Phosphatase 62 U/L (46-116) 53 U/L (46-116) Total Protein 6.5 G/DL (6.4-8.2) 6.0 G/DL (6.4-8.2) Albumin 2.8 G/DL (3.4-5.0) 2.6 G/DL (3.4-5.0) Globulin 3.7 g/dL 3.4 g/dL Albumin/Globulin Ratio 0.8 (1.0-2.7) 0.8 (1.0-2.7) White Blood Count 7.4 K/UL (4.8-10.8) 7.2 K/UL (4.8-10.8) Red Blood Count 5.10 M/UL (4.70-6.10) 5.26 M/UL (4.70-6.10) Hemoglobin 13.6 G/DL (14.2-18.0) 14.1 G/DL (14.2-18.0) Hematocrit 42.7 % (42.0-52.0) 42.6 % (42.0-52.0) Mean Corpuscular Volume 84 FL (80-99) 81 FL (80-99) Mean Corpuscular Hemoglobin 26.6 PG (27.0-31.0) 26.8 PG (27.0-31.0) Mean Corpuscular Hemoglobin Concent 31.8 G/DL (32.0-36.0) 33.1 G/DL (32.0-36.0) Red Cell Distribution Width 13.2 % (11.6-14.8) 12.8 % (11.6-14.8) Platelet Count 190 K/UL (150-450) 200 K/UL (150-450) Mean Platelet Volume 7.1 FL (6.5-10.1) 6.8 FL (6.5-10.1) Neutrophils (%) (Auto) 76.5 % (45.0-75.0) 77.7 % (45.0-75.0) Lymphocytes (%) (Auto) 10.5 % (20.0-45.0) 11.5 % (20.0-45.0) Monocytes (%) (Auto) 9.0 % (1.0-10.0) 8.8 % (1.0-10.0) Eosinophils (%) (Auto) 3.6 % (0.0-3.0) 1.7 % (0.0-3.0) Basophils (%) (Auto) 0.4 % (0.0-2.0) 0.3 % (0.0-2.0) Phosphorus Level 2.7 MG/DL (2.5-4.9) Magnesium Level 1.6 MG/DL (1.8-2.4) C-Reactive Protein, Quantitative 2.9 mg/dL (0.00-0.90) Pro-B-Type Natriuretic Peptide 175 pg/mL (0-125) Height (Feet): 6 Height (Inches): 1.00 Weight (Pounds): 246 Objective Physical Exam: Vitals: reviewed General: NAD HEENT: nc, at Neck: supple Chest: clear breath sounds bilaterally, nc++ Cardiovascular: RRR, no s3, s4 Neuro: alert and oriented : carlos manuel+ Juanito Castellanos MD Aug 18, 2019 06:43
[2019-08-18 08:20] VITALS: BP 117/67
[2019-08-18] MEDS: Magnesium Oxide 400mg tab ORAL SCH ×2 (08:41→12:36)
[2019-08-18] MEDS: Furosemide 40mg tab ORAL SCH (08:42)
[2019-08-18] MEDS: Xarelto 10mg tab ORAL SCH (08:42)
[2019-08-18] MEDS: Docusate 100mg cap ORAL SCH ×2 (08:44→12:36)
--- NOTE | 2019-08-18 10:15 | Pulmonology Progress Note ---
Assessment/Plan Assessment/Plan IMPRESSION: 1. Decompensated congestive heart failure. 2. COPD with exacerbation 3. Respiratory failure. Now extubated. 4. Obesity. 5. Acute on chronic respiratory acidosis. 6. Pulmonary embolism DISCUSSION: Resumed Lasix; off Diamox On steroids Continue broad-spectrum antibiotics. Has had hemoptysis (small) Now on Xarelto; off Lovenox Continue O2; will titrate down as tolerated Continue anticoagulation Dc home Mitchell Cassidy M.D. Subjective Interval Events: Doing well; saturating 90% on 2-4 L min O2 Constitutional: Reports: no symptoms HEENT: Repors: no symptoms Respiratory: Reports: no symptoms Cardiovascular: Reports: no symptoms Gastrointestinal/Abdominal: Reports: no symptoms Allergies: Coded Allergies: No Known Allergies (Unverified , 07/23/16) Objective Last 24 Hour Vital Signs Date Time Temp Pulse Resp B/P (MAP) Pulse Ox O2 Delivery O2 Flow Rate FiO2 08/18/19 08:21 76 08/18/19 08:20 97.9 76 19 117/67 (84) 95 08/18/19 04:00 98.6 72 18 126/63 (84) 94 08/18/19 04:00 70 08/18/19 00:00 76 08/18/19 00:00 98.9 72 18 127/66 (86) 99 08/17/19 21:00 Venturi Mask 8.0 08/17/19 20:00 82 08/17/19 20:00 98.9 78 20 121/81 (94) 99 08/17/19 16:00 98.9 80 19 127/79 (95) 97 08/17/19 16:00 81 08/17/19 12:00 85 08/17/19 12:00 98.1 83 18 118/84 (95) 94 Intake and Output 08/17/19 08/18/19 19:00 07:00 Intake Total 1000 ml Balance 1000 ml Intake Oral 1000 ml # Voids 6 4 # Bowel Movements 3 General Appearance: no acute distress HEENT: normocephalic Respiratory/Chest: chest wall non-tender, lungs clear Cardiovascular: normal peripheral pulses, normal rate Abdomen: normal bowel sounds Current Medications Medications (Trade) Dose Ordered Sig/Judy Route PRN Reason Start Time Stop Time Status Last Admin Dose Admin Artificial Tears (Akwa-Tears) 2 drop Q4H PRN BOTH EYES Dry Eyes 08/13/19 18:23 09/12/19 18:22 Chlorhexidine Gluconate (Jessenia-Hex 2%) 1 applic DAILY@2000 TOPIC 08/13/19 20:00 11/04/19 19:59 08/17/19 20:08 Clonidine HCl (Catapres Tab) 0.1 mg Q4H PRN ORAL SBP>170 08/13/19 18:30 11/11/19 18:22 Dextrose (Dextrose 50%) 25 ml Q30M PRN IV Hypoglycemia 08/13/19 18:30 11/04/19 10:29 Dextrose (Dextrose 50%) 50 ml Q30M PRN IV Hypoglycemia 08/13/19 18:30 11/04/19 10:29 Docusate Sodium (Colace) 100 mg THREE TIMES A DAY ORAL 08/14/19 09:00 09/12/19 08:59 08/17/19 17:19 Furosemide (Lasix) 40 mg DAILY ORAL 08/16/19 12:30 09/15/19 12:29 08/18/19 08:42 Hydralazine HCl (Apresoline) 10 mg Q2H PRN IV SBP>170 08/13/19 18:23 11/11/19 18:22 Magnesium Oxide (Mag-Ox 400mg) 400 mg THREE TIMES A DAY ORAL 08/16/19 13:00 09/15/19 12:59 08/18/19 08:41 Pantoprazole (Protonix) 40 mg EVERY 12 HOURS ORAL 08/13/19 21:00 09/12/19 20:59 08/17/19 20:08 Prednisone (predniSONE) 10 mg DAILY ORAL 08/17/19 09:00 09/16/19 08:59 08/18/19 08:41 Rivaroxaban (Xarelto) 10 mg DAILY ORAL 08/16/19 09:00 11/14/19 08:59 08/18/19 08:42 Mitchell Cassidy MD Aug 18, 2019 10:15
[2019-08-18] MEDS ORDERED: THEOPHYLLINE A100 MG ORAL (10:18)
[2019-08-18] MEDS ORDERED: LOSARTAN POTASS50 MG ORAL (10:18)
[2019-08-18] MEDS ORDERED: PREDNISONE10 MG ORAL (10:18)
[2019-08-18] MEDS ORDERED: COREG6.25 MG ORAL (10:18)
[2019-08-18] MEDS ORDERED: XARELTO10 MG ORAL (10:18)
[2019-08-18] MEDS ORDERED: FUROSEMIDE40 MG ORAL (10:18)
--- NOTE | 2019-08-18 10:20 | Discharge Instructions ---
Discharge Instructions Discharge Instructions Follow Up Orders Outpatient followup with Dr Cassidy, lung specialist in 2 weeks #[id number] For Congestive Heart Failure Reminder Report to your physician any weight gain of 5 pounds or more in one week. Mitchell Cassidy MD Aug 18, 2019 10:20
--- NOTE | 2019-08-18 11:58 | Nephrology Progress Note ---
Assessment/Plan Problem List: (1) CAITLIN (acute kidney injury) (2) Hypokalemia (3) Acute respiratory failure (4) CHF (congestive heart failure) (5) COPD exacerbation Assessment Acute respiratory failure requiring intubation and mechanical ventilation , currently on FiO2 of 70% CHF (congestive heart failure), exacerbation COPD exacerbation Lymphopenia Plan no labs today Off Diamox and potassium supplement serum creatinine down Stable from renal standpoint to view Vent management per pulmonary NG tube Change feeding to Nepro Continue to monitor renal parameters IV Protonix Antibiotics Steroids is being continued 2D echocardiogram ejection fraction 55% Monitor urine output and renal parameters Monitor immunoresponse parameters Per orders Subjective ROS Limited/Unobtainable: No Constitutional: Reports: malaise Objective Objective Last 24 Hour Vital Signs Date Time Temp Pulse Resp B/P (MAP) Pulse Ox O2 Delivery O2 Flow Rate FiO2 08/18/19 09:00 Venturi Mask 8.0 08/18/19 08:21 76 08/18/19 08:20 97.9 76 19 117/67 (84) 95 08/18/19 04:00 98.6 72 18 126/63 (84) 94 08/18/19 04:00 70 08/18/19 00:00 76 08/18/19 00:00 98.9 72 18 127/66 (86) 99 08/17/19 21:00 Venturi Mask 8.0 08/17/19 20:00 82 08/17/19 20:00 98.9 78 20 121/81 (94) 99 08/17/19 16:00 98.9 80 19 127/79 (95) 97 08/17/19 16:00 81 08/17/19 12:00 85 08/17/19 12:00 98.1 83 18 118/84 (95) 94 Intake and Output 08/17/19 08/18/19 19:00 07:00 Intake Total 1000 ml Balance 1000 ml Intake Oral 1000 ml # Voids 6 4 # Bowel Movements 3 Height (Feet): 6 Height (Inches): 1.00 Weight (Pounds): 246 General Appearance: no apparent distress, other - feels better Cardiovascular: normal rate Respiratory/Chest: decreased breath sounds Abdomen: distended Objective No change Ovi Byrnes MD Aug 18, 2019 11:58
[2019-08-18 12:07] VITALS: BP 132/61
--- NOTE | 2019-08-18 12:11 | Infectious Diseases Prog Note ---
Assessment/Plan Assessment/Plan IMPRESSION: COPD exacerbation, Hypercapnic respiratory failure CHF exacerbation, Diastolic Hypertension, Pulmonary hypertension, Chronic kidney disease, sleep apnea. Leukocytosis, likely steroid related Pulmonary embolism RECOMMENDATION: Observe off antibiotic Negative COVID19 tests X 2 sputum culture: normal fly Subjective ROS Limited/Unobtainable: No Constitutional: Reports: no symptoms, other - doing better Respiratory: Reports: no symptoms Cardiovascular: Reports: no symptoms Gastrointestinal/Abdominal: Reports: no symptoms Allergies: Coded Allergies: No Known Allergies (Unverified , 07/23/16) Objective Vital Signs Last 24 Hour Vital Signs Date Time Temp Pulse Resp B/P (MAP) Pulse Ox O2 Delivery O2 Flow Rate FiO2 08/18/19 12:08 80 08/18/19 12:07 97.9 80 18 132/61 (84) 93 08/18/19 09:00 Venturi Mask 8.0 08/18/19 08:21 76 08/18/19 08:20 97.9 76 19 117/67 (84) 95 08/18/19 04:00 98.6 72 18 126/63 (84) 94 08/18/19 04:00 70 08/18/19 00:00 76 08/18/19 00:00 98.9 72 18 127/66 (86) 99 08/17/19 21:00 Venturi Mask 8.0 08/17/19 20:00 82 08/17/19 20:00 98.9 78 20 121/81 (94) 99 08/17/19 16:00 98.9 80 19 127/79 (95) 97 08/17/19 16:00 81 Height (Feet): 6 Height (Inches): 1.00 Weight (Pounds): 246 HEENT: mucous membranes moist Respiratory/Chest: lungs clear Cardiovascular: normal rate Abdomen: soft, non tender Extremities: other - trace edema Neurologic/Psychiatric: alert, oriented x 3, responsive Current Medications Medications (Trade) Dose Ordered Sig/Judy Route PRN Reason Start Time Stop Time Status Last Admin Dose Admin Artificial Tears (Akwa-Tears) 2 drop Q4H PRN BOTH EYES Dry Eyes 08/13/19 18:23 09/12/19 18:22 Chlorhexidine Gluconate (Jessenia-Hex 2%) 1 applic DAILY@2000 TOPIC 08/13/19 20:00 11/04/19 19:59 08/17/19 20:08 Clonidine HCl (Catapres Tab) 0.1 mg Q4H PRN ORAL SBP>170 08/13/19 18:30 11/11/19 18:22 Dextrose (Dextrose 50%) 25 ml Q30M PRN IV Hypoglycemia 08/13/19 18:30 11/04/19 10:29 Dextrose (Dextrose 50%) 50 ml Q30M PRN IV Hypoglycemia 08/13/19 18:30 11/04/19 10:29 Docusate Sodium (Colace) 100 mg THREE TIMES A DAY ORAL 08/14/19 09:00 09/12/19 08:59 08/17/19 17:19 Furosemide (Lasix) 40 mg DAILY ORAL 08/16/19 12:30 09/15/19 12:29 08/18/19 08:42 Hydralazine HCl (Apresoline) 10 mg Q2H PRN IV SBP>170 08/13/19 18:23 11/11/19 18:22 Magnesium Oxide (Mag-Ox 400mg) 400 mg THREE TIMES A DAY ORAL 08/16/19 13:00 09/15/19 12:59 08/18/19 08:41 Pantoprazole (Protonix) 40 mg EVERY 12 HOURS ORAL 08/13/19 21:00 09/12/19 20:59 08/17/19 20:08 Prednisone (predniSONE) 10 mg DAILY ORAL 08/17/19 09:00 09/16/19 08:59 08/18/19 08:41 Rivaroxaban (Xarelto) 10 mg DAILY ORAL 08/16/19 09:00 11/14/19 08:59 08/18/19 08:42 Jesús Rose MD Aug 18, 2019 12:11
--- NOTE | 2019-08-18 14:48 | Cardiac Electrophysiology PN ---
Assessment/Plan Assessment/Plan 1. Respiratory failure due to combination of CHF,COPD, PNA and possible PE. His BNP is more than 5000. EF 55% with nl PAP. Extubated Ruled out for MN. On Xarelto 10 daily for possible PE. On Venturi Mask and Lasix 40 po daily and prednisone 10 daily 2. PNA. Covid is negative, on prednisone 3. ARF. Cr down to 1.3 4. COPD. DW RN Subjective Subjective Covid test negativex2. No arrhythmias overnight. In SR. Nl EF. DC planning in progress Objective Last 24 Hour Vital Signs Date Time Temp Pulse Resp B/P (MAP) Pulse Ox O2 Delivery O2 Flow Rate FiO2 08/18/19 12:08 80 08/18/19 12:07 97.9 80 18 132/61 (84) 93 08/18/19 09:00 Venturi Mask 8.0 08/18/19 08:21 76 08/18/19 08:20 97.9 76 19 117/67 (84) 95 08/18/19 04:00 98.6 72 18 126/63 (84) 94 08/18/19 04:00 70 08/18/19 00:00 76 08/18/19 00:00 98.9 72 18 127/66 (86) 99 08/17/19 21:00 Venturi Mask 8.0 08/17/19 20:00 82 08/17/19 20:00 98.9 78 20 121/81 (94) 99 08/17/19 16:00 98.9 80 19 127/79 (95) 97 08/17/19 16:00 81 Intake and Output 08/17/19 08/18/19 19:00 07:00 Intake Total 1000 ml Balance 1000 ml Intake Oral 1000 ml # Voids 6 4 # Bowel Movements 3 Objective HEAD AND NECK: No JVD. Oxygen in place LUNGS: Coarse rhonchi bilaterally. CARDIOVASCULAR: Regular S1 and S2 with no gallop or murmur. ABDOMEN: Soft. EXTREMITIES: 1+ pitting edema. Livan Parker MD Aug 18, 2019 14:48
--- NOTE | 2019-08-19 09:12 | Discharge Summary ---
Discharge Summary Discharge Summary _ DATE OF ADMISSION: 08/05/2019 DATE OF DISCHARGE: 08/18/2019 DISCHARGED BY: Dr. Martinez REASON FOR ADMISSION: 63 years old male with past medical history of COPD, obstructive sleep apnea, congestive heart failure, obesity, presented for evaluation due to generalized weakness. Patient reported being unsteady on his feet for the past few days. No reported falls. He denied fever and chills. He denied chest pain or shortness of breath. No vomiting , diarrhea or abdominal pain. Upon evaluation patient was slightly tachycardic . Pulse oximetry was 93% on room air. Blood pressure was 159/91. Per patient, at home he was using oxygen at night only. Laboratory work-up revealed no leukocytosis, stable hemoglobin , hematocrit and platelet count. Stable electrolytes. BUN 23, creatinine 1.2. Glucose 143. Troponin 0.033. Pro BNP 3454. EKG revealed sinus tachycardia, no PVC , left axis deviation . Albumin 3.3. Chest x-ray demonstrated cardiomegaly with evidence of congestive heart failure. Patient received Lasix. ABG demonstrated pH of 7.24, PCO2 104.8 and O2 sat was 95%. Patient received bronchodilator. Patient also was tested for coronavirus, given bilateral pulmonary congestion . Patient became intermittently confused, most likely due to hypercapnia. Family was able to convey to the patient that intubation was the only option, since BiPAP and nebulizing treatment may be contraindicated if coronavirus confirm. Patient agreed and was intubated in setting of the worsening blood gas with worsening hypoxemia and hypercapnia. Patient subsequently admitted to ICU for further management. CONSULTANTS: delivery supervisor Dr. Bansal neurologist Dr. Cassidy ID specialist Dr Rose trolley coach driver Dr. Byrnes instant print operator/oncologist Dr. Castellanos [facility] COURSE: Patient admitted to ICU to isolation room. Ventilator support and pulmonary toilet provided . Patient started on IV steroids with tapering and empiric antibiotics. Patient was followed-up with ABG and chest x-ray. Echocardiogram demonstrated ejection fraction of 50 to 55% with mild left ventricular hypertrophy. No evidence of wall motion abnormality to the extent visualized. Patient started on diuresis/Lasix drip with close monitoring of volumes and cardiorenal parameters . Patient also initially was given IV Diamox . CO2 trended down. Pro BNP down to 175 prior to discharge. Serial troponin were negative. EKG revealed no acute ischemic changes. Patient was ruled out for acute [place]. COVID 19 was not detected on 2 different occasions. Blood cultures were negative. Influenza screen test was negative. Sputum culture was negative. Antibiotic provided as per ID specialist recommendation . Patient completed antibiotic while in the hospital. Patient was observed off antibiotic. Leukocytosis was most likely steroid related and resolved. No fevera. Weaning protocol initiated as tolerated . Patient was able to be weaned and extubated on 08/11. Supplemental oxygen titrated to keep pulse oximetry above 92%. Patient remained hypoxic. D-dimer was elevated. Venous duplex bilateral lower extremity revealed no evidence of acute DVT. CTA of the chest was positive for pulmonary emboli in the right middle lobe pulmonary artery and superior subsegmental branch of the right lower lobe pulmonary artery. Bilateral area of consolidation and/or atelectasis. Patient started on anticoagulation with Lovenox. Patient noted to have small hemoptysis. Lovenox was discontinued , and patient started on Xarelto per instant print operator recommendation. No further hemoptysis, Bus Operator recommended minimum of 3 months of anticoagulation and follow-up with imaging. Blood pressure was closely monitored and remained stable. Renal parameters and electrolytes were closely monitored ; electrolytes corrected as needed . Patient developed acute kidney injury. GI prophylaxis provided. Creatinine down to normal from the highest 1.9 on down to 1.0 prior to discharge. Patient clinically stabilized and was ready for discharge home. Recommended outpatient follow-up with design draftsman in 2 weeks. FINAL DIAGNOSES: Acute hypoxemic hypercapnic respiratory failure , requiring intubation ( secondary to combination of CHF, COPD, pneumonia and PE) Acute pulmonary embolism Pneumonia Acute kidney injury-resolved COPD exacerbation CHF exacerbation, diastolic Hypertension Pulmonary hypertension Obstructive sleep apnea Acute on chronic respiratory acidosis Hypokalemia DISCHARGE MEDICATIONS: See Medication Reconciliation list. DISCHARGE INSTRUCTIONS: Patient was discharged home. Follow-up with design draftsman in 2 weeks. I have been assigned to dictate discharge summary for this account. I was not involved in the patient's management. Sita Evangelista NP Aug 19, 2019 09:12
== END 2019-08-18 14:55 | disposition home or self-care (01) | DRG 130 ==
LOC: EDBD 18:20 → EMR 19:23 → ICU 20:03 → EDBEDREQSVC 20:30 → EDBEDREQ 23:04 → 2E 08-13 18:48
PROC: 0BH17EZ Insertion of Endotracheal Airway into Trachea, Via Natural or Artificial Opening (ICD-10-PCS; principal; 2019-08-05)
PROC: 5A1955Z Respiratory Ventilation, Greater than 96 Consecutive Hours (ICD-10-PCS; principal; 2019-08-05)
PROC: 02HV33Z Insertion of Infusion Device into Superior Vena Cava, Percutaneous Approach (ICD-10-PCS; 2019-08-06)
PROC: B548ZZA Ultrasonography of Superior Vena Cava, Guidance (ICD-10-PCS; 2019-08-06)
DX: J96.02 Acute respiratory failure with hypercapnia (principal); J18.9 Pneumonia, unspecified organism; I50.33 Acute on chronic diastolic (congestive) heart failure; J44.1 Chronic obstructive pulmonary disease with (acute) exacerbation; I13.0 Hypertensive heart and chronic kidney disease with heart failure and stage 1 through stage 4 chronic kidney disease, or unspecified chronic kidney disease; N18.9 Chronic kidney disease, unspecified; I26.99 Other pulmonary embolism without acute cor pulmonale; J44.0 Chronic obstructive pulmonary disease with (acute) lower respiratory infection; N17.0 Acute kidney failure with tubular necrosis; G47.30 Sleep apnea, unspecified; D72.810 Lymphocytopenia; I27.20 Pulmonary hypertension, unspecified; I34.0 Nonrheumatic mitral (valve) insufficiency; E87.3 Alkalosis; E87.6 Hypokalemia; E87.5 Hyperkalemia; E66.9 Obesity, unspecified; Z68.32 Body mass index [BMI] 32.0-32.9, adult
CPT/HCPCS: 31500; 36415; 36569; 36600; 71045; 71275; 74018; 76937; 80048; 80053; 80061; 80307; 81003; 82164; 82550; 82728; 82803; 82977; 83036; 83605; 83615; 83735; 83880; 84100; 84443; 84478; 84484; 84550; 85007; 85025; 85379; 86140; 86703; 87040; 87070; 87081; 87205; 87635; 92610; 93005; 93306; 93970; 94002; 94003; 96365; 96368; 96375; 99291; G0480; J8499